=== PATIENT | female | born 1950 | race Caucasian/White ===

== ENCOUNTER → 2022-06-26 | Outpatient (CLI) | payer MEDICARE, MEDICAID ==
--- NOTE | 2022-06-26 15:43 | Diagnostic Imaging Report ---
INDICATION: Lump right hip. FINDINGS: Real-time imaging in the area of question shows an intramuscular complex hypoechoic fluid collection with debris. This measures approximately 4.8 x 2.8 x 1.5 cm. There is no hypervascularity. IMPRESSION: The findings suggest an intramuscular complex fluid collection, likely representing a hematoma, perhaps from muscle tear. If this does not improve, I would recommend additional imaging with MRI and gadolinium. Dictated by: Dictated on workstation # [id number]
== END ==
LOC: RAD 14:01
PROVIDERS: ATTEND Nurse Practitioner Family
DX: R22.41 Localized swelling, mass and lump, right lower limb (principal)
CPT/HCPCS: 76881

== ENCOUNTER 2022-08-03 07:32 | Inpatient (IN) | payer OTHER, MEDICAID ==
[~2022-08-03] VITALS: Ht 147 cm; Wt 43.3 kg
[2022-08-03] MEDS ORDERED: fentaNYL INJ 100 MCG/2 ML AMP IVP STA ×2 (07:55→11:32)
[2022-08-03] MEDS ORDERED: NS IV 1000 ML 1,000 ML IV STA (07:55)
--- NOTE | 2022-08-03 07:58 | ED Abdominal Pain ---
General Chief Complaint: Abdominal/GI Problems Stated Complaint: ABDOMINAL PAIN Nursing Triage Note: PT ARRIVED PER EMS, PT CO OF ABD PAIN FOR APPROX WEEK, DENIES DIARRHEA BUT STATES HAS HAD SEVERAL BM DURING [facility]. CO OF PAIN 08/28 Source of Information: Patient Exam Limitations: No Limitations History of Present Illness Date Seen by Provider: Aug 03, 2022 Time Seen by Provider: 07:50 Initial Comments Here with complaint of left-sided abdominal pain over the last week has worsened till this morning. She has not had pain like this before. Does report slightly darker urine but denies blood in her urine or stool. Last BM this morning that she states was darker brown and soft. Denies fever but has had some chills. Denies upper respiratory symptoms. Arrives via EMS due to severe pain. Timing/Duration: 1 Week, Getting Worse Severity/Quality: Moderate, Severe, Aching Location: LUQ, LLQ, Flank Radiation: No Radiation Activities at Onset: None Modifying Factors: Worsens With Movement, Worsens With Palpation Associated Symptoms: No Chest Pain, No Nausea/Vomiting, No Shortness of Air, No Swelling/Mass in Abdomen, No Weakness Allergies and Home Medications Allergies Coded Allergies: codeine (Verified Allergy, Unknown, 08/03/22) Patient Home Medication List Home Medication List Reviewed: Yes Review of Systems Review of Systems Constitutional: see HPI, chills; No fever EENTM: No Symptoms Reported Respiratory: Cough (Chronic mild but unchanged); Denies Shortness of Air Cardiovascular: Denies Chest Pain, Denies Edema Gastrointestinal: Abdominal Pain, Constipated; Denies Diarrhea Genitourinary: See HPI; Denies Burning, Denies Drainage Musculoskeletal: back pain; No muscle pain Skin: No change in color, No lesions Psychiatric/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: Denies Headache; Weakness All Other Systems Reviewed Negative Unless Noted: Yes Past Oudkfcl-Mzzymm-Hkoyax Hx Patient Social History Tobacco Use?: Yes Tobacco type used: Cigarettes Smoking Status: Current Everyday Smoker Substance use?: No Alcohol Use?: No Immunizations Up To Date First/Initial COVID19 Vaccinat: VINAY Second COVID19 Vaccination Noe: VINAY COVID19 Vaccine Director Engineering: VINAY Past Medical History Surgery/Hospitalization HX: ABD PAIN, Surgeries: Yes Abdominal Respiratory: Yes COPD Cardiac: Yes 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, 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 Gastrointestinal: Yes Musculoskeletal: Yes Chronic Back Pain Family Medical History Reviewed and Corrections made No Pertinent Family Hx Physical Exam Vital Signs Vital Signs - First Documented 08/03/22 07:43 Temp 36.5 Pulse 80 Resp 20 B/P (MAP) 118/80 (93) Pulse Ox 93 Capillary Refill : Less Than 3 Seconds Height/Weight/BMI Height: '" Weight: lbs. oz. kg; 18.00 BMI Method: General Appearance: WD/WN, mild distress HEENT: pharynx normal Neck: full range of motion, supple Respiratory: lungs clear, normal breath sounds Cardiovascular: regular rate, rhythm, no murmur Gastrointestinal: soft; No distended, No guarding, No rebound; tenderness (Left upper and lower quadrant and left flank) Extremities: non-tender, normal inspection Back: normal inspection; No CVA tenderness (R); CVA tenderness (L) Neurologic/Psychiatric: alert, normal mood/affect, oriented x 3 Skin: normal color, warm/dry Focused Exam Lactate Level 08/03/22 11:55: Lactic Acid Level Laboratory Tests Test 08/03/22 11:55 Progress/Results/Core Measures Results/Orders Lab Results Laboratory Tests Test 08/03/22 07:38 08/03/22 08:20 08/03/22 11:55 Range/Units White Blood Count 12.1 H 4.3-11.0 10^3/uL Red Blood Count 4.29 3.80-5.11 10^6/uL Hemoglobin 12.1 11.5-16.0 g/dL Hematocrit 37 35-52 % Mean Corpuscular Volume 86 80-99 fL Mean Corpuscular Hemoglobin 28 25-34 pg Mean Corpuscular Hemoglobin Concent 33 32-36 g/dL Red Cell Distribution Width 13.2 10.0-14.5 % Platelet Count 231 130-400 10^3/uL Mean Platelet Volume 8.8 L 9.0-12.2 fL Immature Granulocyte % (Auto) 1 % Neutrophils (%) (Auto) 77 H 42-75 % Lymphocytes (%) (Auto) 10 L 12-44 % Monocytes (%) (Auto) 8 0-12 % Eosinophils (%) (Auto) 3 0-10 % Basophils (%) (Auto) 1 0-10 % Neutrophils # (Auto) 9.4 H 1.8-7.8 10^3/uL Lymphocytes # (Auto) 1.2 1.0-4.0 10^3/uL Monocytes # (Auto) 1.0 0.0-1.0 10^3/uL Eosinophils # (Auto) 0.3 0.0-0.3 10^3/uL Basophils # (Auto) 0.1 0.0-0.1 10^3/uL Immature Granulocyte # (Auto) 0.1 0.0-0.1 10^3/uL Sodium Level 133 L 135-145 MMOL/L Potassium Level 4.7 3.6-5.0 MMOL/L Chloride Level 98 98-107 MMOL/L Carbon Dioxide Level 23 21-32 MMOL/L Anion Gap 12 5-14 MMOL/L Blood Urea Nitrogen 15 7-18 MG/DL Creatinine 1.08 0.60-1.30 MG/DL Estimat Glomerular Filtration Rate 55 BUN/Creatinine Ratio 14 Glucose Level 106 H 70-105 MG/DL Calcium Level 9.6 8.5-10.1 MG/DL Corrected Calcium 9.2 8.5-10.1 MG/DL Total Bilirubin 0.4 0.1-1.0 MG/DL Aspartate Amino Transf (AST/SGOT) 17 5-34 U/L Alanine Aminotransferase (ALT/SGPT) 10 0-55 U/L Alkaline Phosphatase 61 40-136 U/L C-Reactive Protein High Sensitivity 3.13 H 0.00-0.50 MG/DL Total Protein 7.2 6.4-8.2 GM/DL Albumin 4.5 3.2-4.5 GM/DL Lipase 26 8-78 U/L Urine Color YELLOW Urine Clarity CLOUDY Urine pH 7.0 5-9 Urine Specific [place] 1.010 L 1.016-1.022 Urine Protein NEGATIVE NEGATIVE Urine Glucose (UA) NEGATIVE NEGATIVE Urine Ketones NEGATIVE NEGATIVE Urine Nitrite POSITIVE H NEGATIVE Urine Bilirubin NEGATIVE NEGATIVE Urine Urobilinogen 0.2 < = 1.0 MG/DL Urine Leukocyte Esterase 3+ H NEGATIVE Urine RBC (Auto) NEGATIVE NEGATIVE Urine RBC NONE /HPF Urine WBC 25-50 H /HPF Urine Squamous Epithelial Cells 2-5 /HPF Urine Crystals NONE /LPF Urine Bacteria LARGE H /HPF Urine Casts NONE /LPF Urine Mucus NEGATIVE /LPF Urine Culture Indicated YES My Orders Orders - JS WALKER MD Cbc With Automated Diff (08/03/22 07:55) Comprehensive Metabolic Panel (08/03/22 07:55) Hs C Reactive Protein (08/03/22 07:55) Lipase (08/03/22 07:55) Ua Culture If Indicated (08/03/22 07:55) Ondansetron Injection (Zofran Injectio (08/03/22 08:00) Ns Iv 1000 Ml (Sodium Chloride 0.9%) (08/03/22 07:55) Ed Iv/Invasive Line Start (08/03/22 07:55) Fentanyl Inj (Sublimaze Injection) (08/03/22 07:55) Urine Culture (08/03/22 08:20) Ct Abdomen/Pelvis W (08/03/22 09:20) Iohexol Injection (Omnipaque 350 Mg/Ml 1 (08/03/22 09:30) Received Contrast (Hold Metformin- Contr (08/03/22 09:30) Ns (Ivpb) (Sodium Chloride 0.9% Ivpb Bag (08/03/22 09:30) Sodium Chloride Flush (Catheter Flush Sy (08/03/22 09:30) Ct Chest Wo (08/03/22 10:58) Lactic Acid Analyzer (08/03/22 10:58) Blood Culture (08/03/22 10:58) Ceftriaxone 1 Gm Pre-Mix (Rocephin 1 Gm (08/03/22 10:58) Fentanyl Inj (Sublimaze Injection) (08/03/22 11:32) Medications Given in ED Current Medications Medications Dose Ordered Sig/Ade Route Start Time Stop Time Status Last Admin Dose Admin Iohexol 100 ml ONCE ONCE IV 08/03/22 09:30 08/03/22 09:31 DC 08/03/22 09:53 47 ML Ondansetron HCl 4 mg ONCE ONCE IVP 08/03/22 08:00 08/03/22 08:01 DC 08/03/22 08:01 4 MG Sodium Chloride 10 ml NEEDED PRN IV 08/03/22 09:30 08/03/22 09:54 10 ML Sodium Chloride 100 ml ONCE ONCE IV 08/03/22 09:30 08/03/22 09:31 DC 08/03/22 09:54 80 ML Vital Signs/I&O 08/03/22 07:43 Temp 36.5 Pulse 80 Resp 20 B/P (MAP) 118/80 (93) Pulse Ox 93 Blood Pressure Mean: 93 Progress Progress Note : Progress Note Seen and evaluated. IV, labs and UA ordered. Anticipate CT abdomen pelvis pending UA study to determine contrast or noncontrast for stones versus intra- abdominal pathology. Fentanyl 50 mcg IV, Zofran 4 mg IV and normal saline 1 L bolus ordered. Monitor patient. Diagnostic Imaging Diagonstic Imaging: CT Plain Films/CT/US/NM/MRI: abdomen, pelvis Comments [facility], [place] NAME: NADIA SCHULTZ [facility] REC#: [id number] PT STATUS: REG ER : 1950 PHYSICIAN: JS WALKER MD ADMIT DATE: 08/03/22/ER Draft Date of Exam:08/03/22 CT ABDOMEN/PELVIS W PROCEDURE: CT abdomen and pelvis with contrast. TECHNIQUE: Multiple contiguous axial images were obtained through the abdomen and pelvis after administration of intravenous contrast. Auto Exposure Controls were utilized during the CT exam to meet ALARA standards for radiation dose reduction. All CT scans use one or more of the following dose optimizing techniques: automated exposure control, MA and/or KvP adjustment based on patient size and exam type or iterative reconstruction. INDICATION: Abdominal pain There is an approximately 2.7 x 2.9 cm irregular mass in the posterolateral left lower lobe with smaller adjacent satellite lesion. Otherwise, mildly prominent interstitial markings in the lung bases are noted and may be on the basis of fibrosis. There is no evidence of focal hepatic, gallbladder, pancreatic or splenic lesion. There is enlargement of both adrenal glands with a dominant left adrenal gland mass measuring 3.8 x 4.6 cm. There is volume loss in the right kidney with enlargement of the right renal pelvis. This could be related to chronic proximal ureteric stricture. There is no free fluid identified. There is moderate aortoiliac atherosclerotic calcification with dense plaque in the common iliac regions. Unopacified urinary bladder reveals no focal abnormality. Note is made of an approximately 3 cm subcutaneous mass in the lateral right buttock region. IMPRESSION: No evidence of acute abdominal abnormality however there is a highly suspicious 2.7 x 2.9 cm left lower lobe pulmonary mass which could represent primary lung tumor or metastasis. The remainder of the lung grant are not included. 4.6 x 3.8 cm left adrenal gland mass is highly suspicious for metastatic lesion with possible metastasis to the right adrenal gland. A 3 cm subcutaneous mass in the lateral right buttock region could also represent either primary or metastatic neoplasm. Right renal volume loss could be on the basis of emt intermediate stricture or obstruction. Dictated on workstation # [id number] Dict: 08/03/22 1002 Trans: 08/03/22 1010 [facility] [id number] Interpreted by: LEONARDO WASHINGTON MD Electronically signed by: Celinagonstic Imaging: CT Plain Films/CT/US/NM/MRI: chest Comments NAME: NADIA SCHULTZ [facility] REC#: [id number] PT STATUS: REG ER : 1950 PHYSICIAN: JS WALKER MD ADMIT DATE: 08/03/22/ER Draft Date of Exam:08/03/22 CT CHEST WO PROCEDURE: CT chest without contrast. TECHNIQUE: Multiple contiguous axial images were obtained through the chest without the use of intravenous contrast. Auto Exposure Controls were utilized during the CT exam to meet ALARA standards for radiation dose reduction. DATE: August 03, 2022. COMPARISON: None. INDICATION: 72-year-old female, left lower lobe mass. PROCEDURE: Axial noncontrasted CT images of the chest. Noncontrasted limits the evaluation of the mediastinum and vascular structures. FINDINGS: There are upper lobe predominant findings of emphysema. There is a noncalcified right upper lobe pulmonary nodule measuring 2.2 x 1.9 cm in axial extent on axial image 62. There is a noncalcified right lower lobe pulmonary nodule measuring 8 mm in size on axial image 92. There is a left lower lobe mass on axial image 110 measuring approximately 3.4 x 3.3 cm in axial extent. There are mild linear opacities in the left lower lobe and lingula consistent with atelectasis. There is also mild atelectasis in the right upper lobe. There is no pneumothorax. There is no pleural effusion. The central airways are patent. The heart is not enlarged. There is no large pericardial effusion. There are coronary artery calcifications and additional areas of atherosclerotic disease. There is no identified abnormally enlarged mediastinal lymph node meeting CT size criteria for adenopathy. There is a rounded area in the left axilla on axial image 24 which potentially could reflect an axillary lymph node versus tortuous vessel. This is difficult to evaluate on noncontrast imaging. There is a left adrenal mass measuring 4.5 x 3.7 cm in size. Internal attenuation on this noncontrast exam is 54 Hounsfield units. There is also a right adrenal nodule measuring 2.1 cm in size with indeterminate internal attenuation value of 45 Hounsfield units. There are splenic calcifications compatible with sequela of prior granulomatous disease. There is right renal atrophy. There are multilevel degenerative changes of the spine. There are compression deformities of T3, T6, and T7 without visible fracture lines. There is partial ankylosis across the T5-T6 disc base. T4-T5 disc space. There is no identified aggressive bone lesion. IMPRESSION: 1. Right upper lobe pulmonary nodule highly concerning for malignancy as well as left lower lobe mass highly concerning for malignancy. 2. Additional 8 mm right lower lobe pulmonary nodule which is indeterminate. 3. Upper lobe predominant findings of emphysema. 4. Question of abnormally enlarged left axillary lymph node versus tortuous vessel. 5. Left adrenal mass and a right adrenal nodule, both of which are indeterminate. Considering the above findings, this does raise concern for possible metastatic disease. Dictated on workstation # [id number] Dict: 08/03/22 1149 Trans: 08/03/22 1203 [facility] [id number] Interpreted by: POLA GUNN MD Electronically signed by: Departure Communication (Admissions) Time/Spoke to Admitting Phy: 12:22 Impression Primary Impression: UTI (urinary tract infection) Qualified Codes: N30.00 - Acute cystitis without hematuria Additional Impressions: Lesion of lung Left adrenal mass Disposition: ADMITTED INPATIENT Condition: Stable Admissions Decision to Admit Reason: Admit from ER (General) Decision to Admit/Date: Aug 03, 2022 Time/Decision to Admit Time: 12:22 Departure-Patient Inst. Referrals: BAIRON HARRIS MD (PCP/Family) Primary Care Physician JS WALKER MD Aug 03, 2022 07:58
[2022-08-03] MEDS ORDERED: ONDANSETRON 4 MG/2 ML (SDV) Z0FRAN IVP ONE (08:00)
[2022-08-03 08:03] LABS: BASOPHILS # (AUTO) 0.1 10^3/uL (0.0-0.1); BASOPHILS % (AUTO) 1 % (0-10); EOSINOPHILS # (AUTO) 0.3 10^3/uL (0.0-0.3); EOSINOPHILS % (AUTO) 3 % (0-10); HEMATOCRIT 37 % (35-52); HEMOGLOBIN 12.1 g/dL (11.5-16.0); LYMPHOCYTES # (AUTO) 1.2 10^3/uL (1.0-4.0); LYMPHOCYTES % (AUTO) 10 % (12-44); MEAN CORPUSCULAR HEMOGLOBIN 28 pg (25-34); MEAN CORPUSCULAR HGB CONC 33 g/dL (32-36); MEAN CORPUSCULAR VOLUME 86 fL (80-99); MEAN PLATELET VOLUME 8.8 fL (9.0-12.2); MONOCYTES % (AUTO) 8 % (0-12); NEUTROPHILS # (AUTO) 9.4 10^3/uL (1.8-7.8); NEUTROPHILS % (AUTO) 77 % (42-75); PLATELET COUNT 231 10^3/uL (130-400); WHITE BLOOD COUNT 12.1 10^3/uL (4.3-11.0)
[2022-08-03 08:04] LABS: ALBUMIN 4.5 GM/DL (3.2-4.5); POTASSIUM 4.7 MMOL/L (3.6-5.0)
[2022-08-03 08:05] LABS: CALCIUM 9.6 MG/DL (8.5-10.1)
[2022-08-03 08:06] LABS: TOTAL PROTEIN 7.2 GM/DL (6.4-8.2)
[2022-08-03 08:08] LABS: BILIRUBIN,TOTAL 0.4 MG/DL (0.1-1.0)
[2022-08-03 08:10] LABS: CREATININE SERUM 1.08 MG/DL (0.60-1.30)
[2022-08-03 08:34] LABS: BILIRUBIN,URINE NEGATIVE (NEGATIVE); CLARITY,URINE CLOUDY; COLOR,URINE YELLOW; GLUCOSE, URINE (UA) NEGATIVE (NEGATIVE); KETONES,URINE NEGATIVE (NEGATIVE); LEUKOCYTE ESTERASE ,URINE 3+ (NEGATIVE); NITRITE,URINE POSITIVE (NEGATIVE); PROTEIN,URINE NEGATIVE (NEGATIVE)
[2022-08-03 08:49] LABS: BACTERIA,URINE LARGE /HPF; WBC,URINE 25-50 /HPF
[2022-08-03] MEDS ORDERED: IOHEXOL 350 MG/ML 100 ML (OMNIPAQUE 350) VIAL IV ONE (09:30)
[2022-08-03] MEDS ORDERED: NS 100 ML (IVPB) BAG IV ONE (09:30)
[2022-08-03] MEDS ORDERED: HOLD METFORMIN - RECEIVED CONTRAST 20 ML VIAL IV SCH (09:30)
[2022-08-03] MEDS ORDERED: CATHETER FLUSH 10 ML SYR IV PRN (09:30)
--- NOTE | 2022-08-03 10:11 | Diagnostic Imaging Report ---
PROCEDURE: CT abdomen and pelvis with contrast. TECHNIQUE: Multiple contiguous axial images were obtained through the abdomen and pelvis after administration of intravenous contrast. Auto Exposure Controls were utilized during the CT exam to meet ALARA standards for radiation dose reduction. All CT scans use one or more of the following dose optimizing techniques: automated exposure control, MA and/or KvP adjustment based on patient size and exam type or iterative reconstruction. INDICATION: Abdominal pain There is an approximately 2.7 x 2.9 cm irregular mass in the posterolateral left lower lobe with smaller adjacent satellite lesion. Otherwise, mildly prominent interstitial markings in the lung bases are noted and may be on the basis of fibrosis. There is no evidence of focal hepatic, gallbladder, pancreatic or splenic lesion. There is enlargement of both adrenal glands with a dominant left adrenal gland mass measuring 3.8 x 4.6 cm. There is volume loss in the right kidney with enlargement of the right renal pelvis. This could be related to chronic proximal ureteric stricture. There is no free fluid identified. There is moderate aortoiliac atherosclerotic calcification with dense plaque in the common iliac regions. Unopacified urinary bladder reveals no focal abnormality. Note is made of an approximately 3 cm subcutaneous mass in the lateral right buttock region. IMPRESSION: No evidence of acute abdominal abnormality however there is a highly suspicious 2.7 x 2.9 cm left lower lobe pulmonary mass which could represent primary lung tumor or metastasis. The remainder of the lung grant are not included. 4.6 x 3.8 cm left adrenal gland mass is highly suspicious for metastatic lesion with possible metastasis to the right adrenal gland. A 3 cm subcutaneous mass in the lateral right buttock region could also represent either primary or metastatic neoplasm. Right renal volume loss could be on the basis of terminologist stricture or obstruction. Dictated by: Dictated on workstation # [id number]
[2022-08-03] MEDS ORDERED: cefTRIAXone 1 GM PRE-MIX 50 ML IV STA (10:58)
--- NOTE | 2022-08-03 12:04 | Diagnostic Imaging Report ---
PROCEDURE: CT chest without contrast. TECHNIQUE: Multiple contiguous axial images were obtained through the chest without the use of intravenous contrast. Auto Exposure Controls were utilized during the CT exam to meet ALARA standards for radiation dose reduction. DATE: August 03, 2022. COMPARISON: None. INDICATION: 72-year-old female, left lower lobe mass. PROCEDURE: Axial noncontrasted CT images of the chest. Noncontrasted limits the evaluation of the mediastinum and vascular structures. FINDINGS: There are upper lobe predominant findings of emphysema. There is a noncalcified right upper lobe pulmonary nodule measuring 2.2 x 1.9 cm in axial extent on axial image 62. There is a noncalcified right lower lobe pulmonary nodule measuring 8 mm in size on axial image 92. There is a left lower lobe mass on axial image 110 measuring approximately 3.4 x 3.3 cm in axial extent. There are mild linear opacities in the left lower lobe and lingula consistent with atelectasis. There is also mild atelectasis in the right upper lobe. There is no pneumothorax. There is no pleural effusion. The central airways are patent. The heart is not enlarged. There is no large pericardial effusion. There are coronary artery calcifications and additional areas of atherosclerotic disease. There is no identified abnormally enlarged mediastinal lymph node meeting CT size criteria for adenopathy. There is a rounded area in the left axilla on axial image 24 which potentially could reflect an axillary lymph node versus tortuous vessel. This is difficult to evaluate on noncontrast imaging. There is a left adrenal mass measuring 4.5 x 3.7 cm in size. Internal attenuation on this noncontrast exam is 54 Hounsfield units. There is also a right adrenal nodule measuring 2.1 cm in size with indeterminate internal attenuation value of 45 Hounsfield units. There are splenic calcifications compatible with sequela of prior granulomatous disease. There is right renal atrophy. There are multilevel degenerative changes of the spine. There are compression deformities of T3, T6, and T7 without visible fracture lines. There is partial ankylosis across the T5-T6 disc base. T4-T5 disc space. There is no identified aggressive bone lesion. IMPRESSION: 1. Right upper lobe pulmonary nodule highly concerning for malignancy as well as left lower lobe mass highly concerning for malignancy. 2. Additional 8 mm right lower lobe pulmonary nodule which is indeterminate. 3. Upper lobe predominant findings of emphysema. 4. Question of abnormally enlarged left axillary lymph node versus tortuous vessel. 5. Left adrenal mass and a right adrenal nodule, both of which are indeterminate. Considering the above findings, this does raise concern for possible metastatic disease. Dictated by: Dictated on workstation # [id number]
[2022-08-03] MEDS ORDERED: MILK OF MAGNESIA 400 MG/5 ML 30 ML UDC PO PRN (15:00)
[2022-08-03] MEDS ORDERED: diphenhydrAMINE 50 MG/ML INJ (BENADRYL) IVP PRN (15:00)
[2022-08-03] MEDS ORDERED: LACTULOSE SYRUP 10GM/15ML (ENULOSE) 30ML UDC PO PRN (15:00)
[2022-08-03] MEDS ORDERED: ANTACID SUSP 30 ML UDC (MYLANTA) PO PRN (15:00)
[2022-08-03] MEDS ORDERED: CALCIUM CARBONATE 500 MG (TUMS) TAB.CHEW PO PRN (15:00)
[2022-08-03] MEDS ORDERED: ACETAMINOPHEN 325 MG TABLET PO PRN (15:00)
[2022-08-03] MEDS ORDERED: diphenhydrAMINE 25 MG TAB (BENADRYL) PO PRN (15:00)
[2022-08-03] MEDS ORDERED: BISACODYL 10 MG SUPP (DULCOLAX) PR PRN (15:00)
[2022-08-03] MEDS ORDERED: NALOXONE 0.4 MG/ML 1 ML (NARCAN) VIAL IV PRN (15:00)
[2022-08-03] MEDS ORDERED: MELATONIN 3 MG TABLET PO PRN (15:00)
[2022-08-03] MEDS ORDERED: NS IV 500 ML 500 ML IV PRN (15:00)
[2022-08-03] MEDS ORDERED: polyethylene glycoL POWDER 17 GM (MIRALAX) PACK PO PRN (15:00)
[2022-08-03] MEDS ORDERED: cefTRIAXone 1 GM PRE-MIX 50 ML IV SCH (15:00)
--- NOTE | 2022-08-03 15:16 | Physical Therapy Progress Note ---
Therapy Progress Note PT to initiate evaluation tomorrow ELISSA Kang PT Aug 03, 2022 15:16
--- NOTE | 2022-08-03 15:18 | Occ Therapy Progress Note ---
Therapy Progress Note OT orders received and chart reviewed. Pt currently still in ER. OT to initiate evaluation 08/04/22 if appropriate. Precious Atkins OT Aug 03, 2022 15:18
[2022-08-03] MEDS: LACTATED RINGERS 1,000 ML IV SCH (15:24)
[2022-08-03 15:42] VITALS: BP 96/58
[2022-08-03] MEDS ORDERED: AMLO-251 PO (16:03)
[2022-08-03] MEDS ORDERED: LISI40TA9 PO (16:03)
[2022-08-03] MEDS ORDERED: IPRA3AMP31 NEB (16:03)
[2022-08-03] MEDS ORDERED: IPRA4AER INH (16:03)
[2022-08-03] MEDS ORDERED: HYDR-3923 PO (16:03)
[2022-08-03] MEDS ORDERED: ACET-2267 PO (16:03)
[2022-08-03] MEDS ORDERED: L.AC1CAP6 PO (16:03)
[2022-08-03] MEDS ORDERED: POLY119P5 PO (16:03)
[2022-08-03] MEDS ORDERED: ROSU20TA32 PO (16:03)
[2022-08-03] MEDS ORDERED: ASPI-1238 PO (16:03)
[2022-08-03] MEDS ORDERED: METO100T12 PO (16:03)
--- NOTE | 2022-08-03 16:51 | History & Physical-Hospitalist ---
History of Present Illness HPI/Chief Complaint Lyndsey Sosa is a 72 year old female with PMH HTN, HLD, COPD, history of lymphoma, who presented with abdominal pain. She says the pain has been there for about a week. The pain was worse today. It is located in her left upper quadrant. She reports chills. She reports diarrhea and fecal incontinence. She reports shortness of breath. She has not had a very good appetite. She denies dysuria. Source: patient Exam Limitations: no limitations Date Seen 08/03/22 Time Seen by a Provider: 16:00 Attending Physician Oscar Garnett MD PCP Admitting Physician: Fara Campos MD Attending Physician: Fara Campos MD Referring Physician Date of Admission Aug 03, 2022 at 14:25 Home Medications & Allergies Home Medications Reviewed patient Home Medication Reconciliation performed by pharmacy medication reconciliations arcade game technician and/or nursing. Patients Allergies have been reviewed. Allergies Allergies Coded Allergies codeine (Verified Allergy, Unknown, 08/03/22) Past Gckpvdf-Wdjmvi-Jipmqp Hx Patient Social History Tobacco Use?: Yes Tobacco type used: Cigarettes Smoking Status: Current Everyday Smoker Use of E-Cig and/or Vaping dev: No Substance use?: Yes Substance type: Caffeine Substance frequency: Daily Alcohol Use?: No Pt feels they are or have been: No Immunizations Up To Date First/Initial COVID19 Vaccinat: PFITZER Second COVID19 Vaccination Noe: PFITZER Tetanus Booster (TDap): Unknown Hepatitis A: No Hepatitis B: No Current Status status: No Advance Directives: No Communicates: Verbally Primary Language: Danish Preferred Spoken Language: Danish Is interpretation needed?: No Sensory deficits: Vision impairment Implanted or Applied Medical D: None Past Medical History Surgeries: Abdominal COPD 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, 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 Chronic Back Pain Lymphoma (unsure of exact diagnosis) Family Medical History Reviewed and Corrections made No Pertinent Family Hx Review of Systems Constitutional: chills Respiratory: short of breath Cardiovascular: no symptoms reported Gastrointestinal: diarrhea Physical Exam Physical Exam Vital Signs Vital Signs - First Documented 08/03/22 08/03/22 07:43 14:28 Temp 36.5 Pulse 80 Resp 20 B/P (MAP) 118/80 (93) Pulse Ox 93 O2 Delivery Nasal Cannula O2 Flow Rate 2.00 Capillary Refill : Less Than 3 Seconds Height, Weight, BMI Height: '" Weight: lbs. oz. kg; 20.03 BMI Method: General Appearance: No Apparent Distress, Anxious, Chronically ill, Thin HEENT: PERRL/EOMI, Pharynx Normal Neck: Normal Inspection, Supple Respiratory: Lungs Clear, No Respiratory Distress Cardiovascular: Regular Rate, Rhythm, No Murmur Gastrointestinal: Normal Bowel Sounds, Soft Extremity: Other (right hip mass) Neurologic/Psychiatric: Alert, Oriented x3 Skin: Normal Color, Warm/Dry Results Results/Procedures Labs Laboratory Tests 08/03/22 07:38 Patient resulted labs reviewed. Imaging: Reviewed Imaging Report Assessment/Plan Admission Diagnosis Sepsis due to UTI Admission Status: Inpatient Order (span 2 midnights) Reason for Inpatient Admission: IV antibiotics Biopsy Assessment and Plan Sepsis due to UTI UA consistent with UTI IV fluids IV Rocephin Lung mass Adrenal mass Right hip mass Concern for metastatic cancer Radiology consulted for biopsy Planning for right hip mass biopsy tomorrow Consult Oncology, will need outpatient follow up HTN Blood pressure low normal at this time Hold Metoprolol and Lisinopril Continue Amlodipine and Hydralazine DVT prophylaxis: SCDs Diagnosis/Problems Diagnosis/Problems (1) Sepsis due to urinary tract infection Status: Acute (2) Lung mass Status: Acute (3) Adrenal mass Status: Acute (4) Hip mass Status: Acute Qualifiers: Laterality: right Qualified Codes: R22.41 - Localized swelling, mass and lump, right lower limb FARA CAMPOS MD Aug 03, 2022 16:51
[2022-08-03] MEDS: ONDANSETRON 4 MG (ZOFRAN) ORAL DISSOLVE TAB PO PRN (17:20)
[2022-08-03 19:20] VITALS: BP 106/69
[2022-08-03] MEDS ORDERED: RT-ALBUTEROL/IPRATROPIUM 3 ML (DUONEB) VIAL IH PRN (21:00)
[2022-08-03] MEDS: DOCUSATE SODIUM 100 MG (COLACE) CAP PO SCH (21:12)
[2022-08-03] MEDS: SENNOSIDES 8.6 MG (SENOKOT) TAB PO SCH (21:12)
[2022-08-03] MEDS: hydrALAZINE (APRESOLINE) 25 MG TAB PO SCH (21:34)
[2022-08-03] MEDS: ONDANSETRON 4 MG/2 ML (SDV) Z0FRAN IV PRN (22:24)
[2022-08-03 23:27] VITALS: BP 92/57
[2022-08-04] VITALS (8 sets, daily range): BP systolic 88–120; BP diastolic 53–73
[2022-08-04] MEDS: LACTATED RINGERS 1,000 ML IV SCH ×2 (01:07→12:19)
[2022-08-04] MEDS: HYDROmorphone 2 MG/ML VIAL (DILAUDID) IV PRN ×2 (02:29→06:59)
[2022-08-04 05:16] LABS: BASOPHILS # (AUTO) 0.1 10^3/uL (0.0-0.1); BASOPHILS % (AUTO) 1 % (0-10); EOSINOPHILS # (AUTO) 0.3 10^3/uL (0.0-0.3); EOSINOPHILS % (AUTO) 4 % (0-10); HEMATOCRIT 30 % (35-52); HEMOGLOBIN 9.9 g/dL (11.5-16.0); LYMPHOCYTES # (AUTO) 0.8 10^3/uL (1.0-4.0); LYMPHOCYTES % (AUTO) 10 % (12-44); MEAN CORPUSCULAR HEMOGLOBIN 29 pg (25-34); MEAN CORPUSCULAR HGB CONC 33 g/dL (32-36); MEAN CORPUSCULAR VOLUME 87 fL (80-99); MEAN PLATELET VOLUME 8.7 fL (9.0-12.2); MONOCYTES # (AUTO) 0.8 10^3/uL (0.0-1.0); MONOCYTES % (AUTO) 10 % (0-12); NEUTROPHILS # (AUTO) 5.6 10^3/uL (1.8-7.8); NEUTROPHILS % (AUTO) 74 % (42-75); PLATELET COUNT 175 10^3/uL (130-400); WHITE BLOOD COUNT 7.7 10^3/uL (4.3-11.0)
[2022-08-04 05:41] LABS: CALCIUM 8.6 MG/DL (8.5-10.1); CREATININE SERUM 0.86 MG/DL (0.60-1.30); MAGNESIUM 1.8 MG/DL (1.6-2.4)
[2022-08-04] MEDS ORDERED: POTASSIUM CL 10MEQ/50ML IVPB 50 ML IV SCH (06:00)
[2022-08-04] MEDS ORDERED: MAGNESIUM 1 GM/100 ML IVPB 100 ML IV SCH (06:00)
[2022-08-04] MEDS ORDERED: KCL 20 MEQ TAB (K-DUR) PO SCH (06:00)
[2022-08-04 07:10] LABS: INR 0.9 (0.8-1.4); PROTHROMBIN TIME PATIENT 12.5 SEC (12.2-14.7)
[2022-08-04] MEDS: ONDANSETRON 4 MG/2 ML (SDV) Z0FRAN IV PRN (07:27)
[2022-08-04] MEDS ORDERED: PROMETHAZINE INJ 25 MG/ML (PHENERGAN) AMP IVP PRN (08:30)
[2022-08-04] MEDS ORDERED: NICOTINE 14 MG (NICODERM) PATCH TD SCH (09:00)
[2022-08-04] MEDS ORDERED: amLODIPine 10 MG (NORVASC) TAB PO SCH (09:00)
[2022-08-04] MEDS ORDERED: PATIENT MAY USE OWN MED,SINGLE MED INH SCH (09:00)
[2022-08-04] MEDS ORDERED: COMBIVENT RESPIMAT IH SCH (09:00)
[2022-08-04] MEDS ORDERED: ROSUVASTATIN 20 MG (CRESTOR) TABLET PO SCH (09:00)
[2022-08-04] MEDS ORDERED: RT-ALBUTEROL/IPRATROPIUM 3 ML (DUONEB) VIAL IH SCH (09:00)
[2022-08-04] MEDS: DOCUSATE SODIUM 100 MG (COLACE) CAP PO SCH (09:08)
[2022-08-04] MEDS: SENNOSIDES 8.6 MG (SENOKOT) TAB PO SCH (09:08)
[2022-08-04] MEDS: hydrALAZINE (APRESOLINE) 25 MG TAB PO SCH ×2 (09:08→12:13)
--- NOTE | 2022-08-04 09:47 | Physical Therapy Evaluation ---
PT Evaluation-General Medical Diagnosis Admission Date Aug 03, 2022 at 14:25 Medical Diagnosis: UTI/lesions of lung and adrenal glands Onset Date: Aug 03, 2022 Therapy Diagnosis Therapy Diagnosis: debility/weakness Precautions Precautions/Isolations: Standard Precautions Referral Physician: Giulia Reason for Referral: Evaluation/Treatment Medical History Pertinent Medical History: COPD, HTN, Smoking History of Falls (past yr): No Prior Surgery (last 100 days): No Current History EMS secondary to abdominal pain x 1 week Reviewed History: Yes Social History Home: Single Level Current Living Status: Alone Prior Prior Level of Function SCALE: Activities may be completed with or without assistive devices. 2-Zgtowdxmkx-sutoppp completes the activity by him/herself with no assistance from a helper. 5-Set-up or Clean-up Assistance-helper sets up or cleans up; patient completes activity. Mead assists only prior to or following the activity. 4-Supervision or Touching Assistance-helper provides verbal cues and/or touching/steadying and/or contact guard assistance as patient completes act ivity. Assistance may be provided throughout the activity or intermittently. 3-Partial/Moderate Assistance-helper does LESS THAN HALF the effort. Mead lifts, holds or supports trunk or limbs, but provides less than half the effort. 2-Substantial/Maximal Assistance-helper does MORE THAN HALF the effort. Mead lifts or holds trunk or limbs and provides more than half the effort. 4-Modldhueo-yotjip does ALL the effort. Patient does none of the effort to complete the activity. Or, the assistance of 2 or more helpers is required for the patient to complete the activity. If activity was not attempted, code reason: 7-Patient Refused. 9-Not Applicable-not attempted and the patient did not perform the activity before the current illness, exacerbation or injury. 10-Not Attempted due to Environmental Limitations-(lack of equipment, weather restraints, etc.). 88-Not Attempted due to Medical Conditions or Safety Concerns. Bed Mobility: 6 Transfers (B,C,W/C): 6 Gait: 6 Stairs: 6 Indoor Mobility (Ambulation): Independent Stairs: Independent Prior Devices Use: None PT Evaluation-Current Subjective Patient reluctantly agrees to PT. Declined FWW use. Patient requests to stay in the room Objective Patient Orientation: Normal For Age Attachments: Oxygen, IV ROM/Strength ROM Lower Extremities bilateral LE WFL Strength Lower Extremities 3/5 grossly bilateral LE all planes Integumentary/Posture Bowel Incontinence: No Bladder Incontinence: No Posture WFL Neuromuscular (Tone, Coordination, Reflexes) grossly intact Sensory Vision: Functional Hearing: Functional Transfers Sit to Lying (QC): 6 Lying to Sitting/Side of Bed(Q: 6 Sit to Stand (QC): 6 Toilet Transfer (QC): 6 Gait Mode of Locomotion: Walk Anticipated Mode of Locomotion: Walk Walk 10 feet (QC): 6 Walk 50 ft with 2 Turns(QC): 6 Walk 150 ft (QC): 7 Distance: 50' Gait Assistive Device: None Comments/Gait Description slow, functional gait sequence Balance Sitting Static: Normal Sitting Dynamic: Normal Standing Static: Fair Standing Dynamic: Fair Assessment/Needs Patient ceases session due to nausea and vomiting with meds issued. Patient also declined continued need for PT at this time. RN notified. Patient rece ntly diagnosed with probable metastatic cancer multiple organs/areas Rehab Potential: Poor PT Plan Treatment/Plan Treatment Plan: Discontinue PT Treatment Duration: Aug 04, 2022 Frequency: 1 time per week Estimated Hrs Per Day: .25 hour per day Patient and/or Family Agrees t: Yes Time/GCodes Time In: 755 Time Out: 805 Total Billed Treatment Time: 10 Total Billed Treatment 1 visit EVLowC 10 min ELISSA VALLE PT Aug 04, 2022 09:47
[2022-08-04] MEDS ORDERED: LIDOCAINE 1% INJ 10 ML VIAL INJ ONE (10:15)
--- NOTE | 2022-08-04 10:33 | Occupational Therapy Eval ---
OT Evaluation-General/PLF Medical Diagnosis Admission Date Aug 03, 2022 at 14:25 Medical Diagnosis: UTI/lesions of lung and adrenal glands Onset Date: Aug 03, 2022 Therapy Diagnosis Therapy Diagnosis: n/a Precautions Precautions/Isolations: Standard Precautions Referral Physician: Giulia Siu Reason: Evaluation/Treatment Medical History Pertinent Medical History: COPD, HTN, Smoking Additional Medical History HTN, HLD, COPD, lymphoma Current History ED with Abdominal pain x1 week Social History Home: Single Level Current Living Status: Alone Entry Into Home: Level Entry ADL-Prior Level of Function SCALE: Activities may be completed with or without assistive devices. 0-Csgiorygpi-wnceiai completes the activity by him/herself with no assistance from a helper. 5-Set-up or Clean-up Assistance-helper sets up or cleans up; patient completes activity. Odonnell assists only prior to or following the activity. 4-Supervision or Touching Assistance-helper provides verbal cues and/or touching/steadying and/or contact guard assistance as patient completes activity. Assistance may be provided throughout the activity or intermittently. 3-Partial/Moderate Assistance-helper does LESS THAN HALF the effort. Odonnell lifts, holds or supports trunk or limbs, but provides less than half the effort. 2-Substantial/Maximal Assistance-helper does MORE THAN HALF the effort. Odonnell lifts or holds trunk or limbs and provides more than half the effort. 1-Djhghomsk-oivoic does ALL the effort. Patient does none of the effort to complete the activity. Or, the assistance of 2 or more helpers is required for the patient to complete the activity. If activity was not attempted, code reason: 7-Patient Refused. 9-Not Applicable-not attempted and the patient did not perform the activity before the current illness, exacerbation or injury. 10-Not Attempted due to Environmental Limitations-(lack of equipment, weather restraints, etc.). 88-Not Attempted due to Medical Conditions or Safety Concerns. ADL PLOF Comments Pt reports IND with ADLs and functional mobility, no AD. She has a walk in shower, no SC. Self Care: Independent Functional Cognition: Independent DME/Equipment: Shower OT Current Status Subjective Pt in bed, family member present. Pt agreeable to OT tx. Mental Status/Objective Patient Orientation: Person, Place, Situation Attachments: IV, Oxygen Current Upper Extremity ROM WFL Upper Extremity Strength WFL ADL-Treatment Eating (QC): 6 On/Off Footwear (QC): 6 Toileting Hygiene (QC): 6 Other Treatments Pt in bed, transferred supine to sit EOB independently. OT educated pt on benefits of SC, she verbalized understanding. Pt completed footwear independently, declined completing other ADLs at this time. Pt reports IND with clothing management and hygiene with toileting, and independent with meals. Pt able to stand at EOB, turn towards bed to adjust linens and return to bed independently. Pt reports she is at PLOF with ADLs, and declines further OT services. Post tx, pt in bed, call light in reach and all needs met. Education OT Patient Education: Correct positioning, Energy conservation, Modified ADL techniques, Progress toward Goal/Update tx plan, Purpose of tx/functional activities, Rehab process Teaching Recipient: Patient Teaching Methods: Discussion Response to Teaching: Verbalize Understanding OT Usp Goals Usp Goals 1=Demonstrate adherence to instructed precautions during ADL tasks. 2=Patient will verbalize/demonstrate understanding of assistive devices/modifications for ADL. 3=Patient will improve strength/tolerance for activity to enable patient to perform ADL's. OT Education/Plan Problem List/Assessment Assessment: No Skilled OT Needs ID'd No skilled OT services indicated at this time, as pt is at her PLOF with ADLs and functional mobility, and pt declined further services. d/c from OT. Discharge Recommendations Plan/Recommendations: Discharge/Goals Met Treatment Plan/Plan of Care Patient would benefit from OT for education, treatment and training to promote independence in ADL's, mobility, safety and/or upper extremity function for ADL's. Plan of Care: ADL Retraining, Functional Mobility Treatment Duration: Aug 04, 2022 Frequency: 1 time per week (eval only) Rehab Potential: Poor Time/GCodes Start Time: 10:15 Stop Time: 10:23 Total Time Billed (hr/min): 8 Billed Treatment Time 1, RAMONE HUA OT Aug 04, 2022 10:33
[2022-08-04] MEDS ORDERED: LIDOCAINE 1% INJ 10 ML VIAL ONE (10:39)
[2022-08-04] MEDS ORDERED: cefTRIAXone 1 GM PRE-MIX 50 ML IV SCH (12:00)
[2022-08-04] MEDS ORDERED: ONDA4TAB11 PO (13:44)
[2022-08-04] MEDS ORDERED: CEFD300C3 PO (13:44)
[2022-08-04] MEDS ORDERED: OXYC1TAB11 PO (13:44)
[2022-08-04] MEDS ORDERED: PROM25TA14 PO (13:44)
--- NOTE | 2022-08-04 14:29 | Oncology Consultation ---
Visit Information Visit Information Date of Admission Aug 03, 2022 at 14:25 Attending Physician Oscar Garnett MD Admitting Physician Admitting Physician: Marianne Campos MD Attending Physician: Marianne Campos MD Chief Complaint Abdominal pain, mass noticed on CT scan Interval History Ms. Sosa is a 72 year white man presented to ER complaining of abdominal and c hest pain .CT scan showed noncalcified right upper lobe pulmonary nodule measuri ng 2.2 x 1.9 cm. There is a left lower lobe mass on axial image 110 measuring approximately 3.4 x 3.3 cm in axial extent. She also has adrenal mass 4.6 x 3.8 cm left adrenal gland mass is highly suspicious for metastatic lesion with possible metastasis to the right adrenal gland. A 3 cm subcutaneous mass in the lateral right buttock region could also represent either primary or metastatic neoplasm. No other acute abdominal issues on the scan. Pt had mass lesion biopsy this morning. We are called for future management. The plan is to discharge patient today. I consulted the patient on: 08/04/22 14:22 Time Seen by Provider: 12:15 Review of Systems Constitutional: see HPI Health Status Allergies Coded Allergies: codeine (Verified Allergy, Unknown, 08/03/22) Home Medications Acetaminophen (Tylenol Extra Strength) 500 Mg Tablet, 1,000 MG PO Q8H PRN for PAIN-MILD (1-4), (Reported) Albuterol/Ipratropium (Combivent Respimat Inhal [place]) 20 Mcg-100 Mcg/Actuation Aero, 2 PUFF INH BID, (Reported) Amlodipine Besylate (Amlodipine Besylate) 10 Mg Tablet, 10 MG PO DAILY, (Reported) Aspirin (Aspirin EC) 81 Mg Tablet.dr, 81 MG PO DAILY, (Reported) Cefdinir (Cefdinir) 300 Mg Capsule, 300 MG PO BID for 5 Days, #10 Prescribed by: MARIANNE CAMPOS on 08/04/22 1344 Hydralazine HCl (Hydralazine HCl) 25 Mg Tablet, 25 MG PO TID, (Reported) Ipratropium/Albuterol Sulfate (Iprat-Albut 0.5-3(2.5) mg/3 ml) 0.5 Mg-3 Mg (2.5 Mg Base)/3 Ml Ampul.neb, 3 ML NEB Q4H PRN for SHORTNESS OF BREATH, (Reported) L.acidoph & Paracasei,B.lactis (Probiotic) 10 Billion Cell Capsule, 1 EACH PO Q48H, (Reported) Lisinopril (Lisinopril) 40 Mg Tablet, 40 MG PO DAILY, (Reported) Metoprolol Tartrate (Metoprolol Tartrate) 100 Mg Tablet, 100 MG PO BID, (Reported) Ondansetron (Ondansetron Odt) 4 Mg Tab.rapdis, 4 MG PO Q6H PRN for NAUSEA/VOMITI NG-1ST LINE for 7 Days, #28 Prescribed by: MARIANNE CAMPOS on 08/04/22 1344 Oxycodone HCl/Acetaminophen (Oxycodone-Acetaminophen 5-325) 5 Mg-325 Mg Tablet, 1 EACH PO Q4H PRN for PAIN-SEVERE for 7 Days, #20 Prescribed by: MARIANNE CAMPOS on 08/04/22 1346 Polyethylene Glycol 3350 (Miralax) 17 Gram/Dose Powder, 17 GM PO DAILY PRN for CONSTIPATION-2ND LINE, (Reported) Promethazine HCl (Promethazine Tablet) 25 Mg Tablet, 25 MG PO Q6H PRN for NAUSEA/VOMITING for 7 Days, #28 Prescribed by: MARIANNE CAMPOS on 08/04/22 1344 Rosuvastatin Calcium (Rosuvastatin Calcium) 20 Mg Tablet, 20 MG PO DAILY, (Reported) QPM-Imliur-Hptuzx Hx Patient Social History Smoking Status: Current Everyday Smoker Alcohol Use?: No Substance type: Caffeine Have you traveled recently?: No Family Medical History Significant Family History: No Pertinent Family Hx Physical Exam Vital Signs Vital Signs - First Documented 08/03/22 08/03/22 07:43 14:28 Temp 36.5 Pulse 80 Resp 20 B/P (MAP) 118/80 (93) Pulse Ox 93 O2 Delivery Nasal Cannula O2 Flow Rate 2.00 Capillary Refill : Less Than 3 Seconds Height, Weight, BMI Height: '" Weight: lbs. oz. kg; 20.03 BMI Method: General Appearance: No Apparent Distress HEENT: PERRL/EOMI Respiratory: No Accessory Muscle Use, No Respiratory Distress Neurologic/Psychiatric: Alert, Oriented x3 Data Review Labs Laboratory Tests 08/04/22 05:10 Laboratory Tests 08/03/22 07:38: White Blood Count 12.1H, Mean Platelet Volume 8.8L, Neutrophils (%) (Auto) 77H, Lymphocytes (%) (Auto) 10L, Neutrophils # (Auto) 9.4H, Sodium Level 133L, Glucose Level 106H, C-Reactive Protein High Sensitivity 3.13H 08/03/22 08:20: Urine Specific [place] 1.010L, Urine Nitrite POSITIVEH, Urine Leukocyte Esterase 3+H, Urine WBC 25-50H, Urine Bacteria LARGEH 08/03/22 11:55: 08/04/22 05:10: Mean Platelet Volume 8.7L, Lymphocytes (%) (Auto) 10L, Red Blood Count 3.45L, H emoglobin 9.9L, Hematocrit 30L, Lymphocytes # (Auto) 0.8L Impression & Plan Impression & Plan IMP: 1. Multiple mass lesions in the chest and adrenal, suspicious of malignancy. s/p CT guided biopsy 08/04/2022 2. Abdominal pain. Rec: 1. I will see patient as out-pt at cancer center to discuss the biopsy results and treatment options. I gave her appointment card 08/18/2022 9:30am and my card. 2. Please discharge with medication for pain control. 3. Pt can be discharged from Hem/Onc point of view. Dr Campos to decide the discharge plan. SWAPNA PINEDA MD Aug 04, 2022 14:29
[2022-08-04] MEDS: ONDANSETRON 4 MG (ZOFRAN) ORAL DISSOLVE TAB PO PRN (14:34)
--- NOTE | 2022-08-04 21:46 | Discharge Summary ---
Discharge Summary Hospital Course Problems/Dx: (1) Sepsis due to urinary tract infection Status: Acute (2) Lung mass Status: Acute (3) Adrenal mass Status: Acute (4) Hip mass Status: Acute Qualifiers: Qualified Codes: R22.41 - Localized swelling, mass and lump, right lower limb Hospital Course Date of Admission: Aug 03, 2022 at 14:25 Admission Diagnosis : Sepsis due to UTI Family Physician/Provider: Oscar Garnett MD Date of Discharge: 08/04/22 Discharge Diagnosis: Sepsis due to UTI, Lung mass/adrenal mass/hip mass Hospital Course: Lyndsey Sosa is a 72 year old female with PMH HTN, COPD, tobacco abuse, who presented with abdominal pain. She underwent CT scan which revealed a lung mass, several pulmonary nodules, adrenal mass, and hip mass. Radiology was consulted and performed biopsy of her hip lesion. Oncology was consulted and she was set up for outpatient follow up. Her course was complicated by nausea and vomiting and she was prescribed antiemetics. She was also given some pain medicine. She was given a course of Omnicef for her UTI. She was discharged home in stable condition. Labs and Pending Lab Test: Laboratory Tests 08/04/22 05:10: White Blood Count 7.7, Red Blood Count 3.45L, Hemoglobin 9.9L, Hematocrit 30L, Mean Corpuscular Volume 87, Mean Corpuscular Hemoglobin 29, Mean Corpuscular Hemoglobin Concent 33, Red Cell Distribution Width 13.4, Platelet Count 175, Mean Platelet Volume 8.7L, Immature Granulocyte % (Auto) 1, Neutrophils (%) (Auto) 74, Lymphocytes (%) (Auto) 10L, Monocytes (%) (Auto) 10, Eosinophils (%) (Auto) 4, Basophils (%) (Auto) 1, Neutrophils # (Auto) 5.6, Lymphocytes # (Auto) 0.8L, Monocytes # (Auto) 0.8, Eosinophils # (Auto) 0.3, Basophils # (Auto) 0.1, Immature Granulocyte # (Auto) 0.1, Prothrombin Time 12.5, INR Comment 0.9, Activated Partial Thromboplast Time 33, Sodium Level 135, Potassium Level 4.0, Chloride Level 102, Carbon Dioxide Level 23, Anion Gap 10, Blood Urea Nitrogen 12, Creatinine 0.86, Estimat Glomerular Filtration Rate 73, BUN/Creatinine Ratio 14, Glucose Level 94, Calcium Level 8.6, Magnesium Level 1.8 Microbiology 08/03/22 Blood Culture - Preliminary, Resulted No growth 08/03/22 Urine Culture - Preliminary, Resulted Escherichia coli Home Meds Active Promethazine Tablet (Promethazine HCl) 25 Mg Tablet 25 Mg PO Q6H PRN 7 Days Ondansetron Odt (Ondansetron) 4 Mg Tab.rapdis 4 Mg PO Q6H PRN 7 Days Oxycodone-Acetaminophen 5-325 (Oxycodone HCl/Acetaminophen) 5 Mg-325 Mg Tablet 1 Each PO Q4H PRN MDD 6 7 Days Cefdinir 300 Mg Capsule 300 Mg PO BID 5 Days Reported Probiotic (L.acidoph & Paracasei,B.lactis) 10 Billion Cell Capsule 1 Each PO Q48H Aspirin EC (Aspirin) 81 Mg Tablet.dr 81 Mg PO DAILY Tylenol Extra Strength (Acetaminophen) 500 Mg Tablet 1,000 Mg PO Q8H PRN Combivent Respimat Inhal [place] (Albuterol/Ipratropium) 20 Mcg-100 Mcg/Actuation Aero 2 Puff INH BID Rosuvastatin Calcium 20 Mg Tablet 20 Mg PO DAILY Iprat-Albut 0.5-3(2.5) mg/3 ml (Ipratropium/Albuterol Sulfate) 0.5 Mg-3 Mg (2.5 Mg Base)/3 Ml Ampul.neb 3 Ml NEB Q4H PRN Miralax (Polyethylene Glycol 3350) 17 Gram/Dose Powder 17 Gm PO DAILY PRN Amlodipine Besylate 10 Mg Tablet 10 Mg PO DAILY Hydralazine HCl 25 Mg Tablet 25 Mg PO TID Assessment/Pt Instructions Take medications as prescribed. Follow up with Oncology. Return with worsening pain, intractable nausea/vomiting, or if you feel like you are getting worse. Discharge Planning: <30 minutes discharge planning Discharge Instructions Discharge Diet: No Restrictions Activity as Tolerated: Yes Consultations Oncology, Radiology Discharge Physical Examination Vital Signs Vital Signs Date Time Temp Pulse Resp B/P (MAP) Pulse Ox O2 Delivery O2 Flow Rate FiO2 08/04/22 16:00 37.1 108 21 90/67 92 Nasal Cannula 3.00 General Appearance: No Apparent Distress, Thin Respiratory: No Respiratory Distress, Decreased Breath Sounds Cardiovascular: Regular Rate, Rhythm, No Murmur Gastrointestinal: Normal Bowel Sounds, Soft Extremity: Normal Inspection, No Pedal Edema Skin: Normal Color, Warm/Dry Neurologic/Psychiatric: Alert, Normal Mood/Affect Allergies: Coded Allergies: codeine (Verified Allergy, Unknown, 08/03/22) Discharge Summary Date of Admission Aug 03, 2022 at 14:25 Date of Discharge Aug 04, 2022 at 16:00 Discharge Date: Aug 04, 2022 Discharge Time: 16:00 Admission Diagnosis Sepsis due to UTI Discharge Diagnosis Sepsis due to UTI Lung mass Adrenal mass Right hip mass HTN (1) Sepsis due to urinary tract infection Status: Acute (2) Lung mass Status: Acute (3) Adrenal mass Status: Acute (4) Hip mass Status: Acute Qualifiers: Qualified Codes: R22.41 - Localized swelling, mass and lump, right lower limb FARA CAMPOS MD Aug 04, 2022 21:46
[2022-08-05] MEDS ORDERED: NICOTINE PATCH REMOVAL TP SCH (08:59)
--- NOTE | 2022-08-07 08:13 | Diagnostic Imaging Report ---
INDICATION: Soft tissue mass about the right hip. Patient presents for ultrasound guided biopsy. Patient was brought to the procedure and placed on table in the left side down decubitus position. The skin of the right hip was prepped and draped in usual sterile fashion. Small amount of 1% lidocaine was utilized for local anesthesia. A total of 4 core biopsies were obtained of the solid mass in the soft tissues about the right hip utilizing a 14-gauge achieve needle. An additional core was obtained for cytometry purposes. The needle was removed and hemostasis was obtained. Patient tolerated procedure well and left department in stable condition. IMPRESSION: Successful ultrasound guided core biopsy of the soft tissue mass at the level of the right hip. Pathology results are currently pending. Dictated by: Dictated on workstation # [id number]
== END 2022-08-04 16:00 | disposition home or self-care (01) | DRG 872 ==
LOC: EDUNIT# 07:32 → ER 07:33 → 4TH 14:25
PROVIDERS: ADMIT Internal Medicine; ATTEND Internal Medicine
PROC: 0JBN3ZX Excision of Right Lower Leg Subcutaneous Tissue and Fascia, Percutaneous Approach, Diagnostic (ICD-10-PCS; principal; 2022-08-04)
DX: A41.9 Sepsis, unspecified organism (principal); N39.0 Urinary tract infection, site not specified; J44.9 Chronic obstructive pulmonary disease, unspecified; F17.210 Nicotine dependence, cigarettes, uncomplicated; E78.00 Pure hypercholesterolemia, unspecified; I10 Essential (primary) hypertension; R91.1 Solitary pulmonary nodule; E27.9 Disorder of adrenal gland, unspecified; R22.41 Localized swelling, mass and lump, right lower limb; H54.7 Unspecified visual loss; Z88.5 Allergy status to narcotic agent
CPT/HCPCS: 36415; 71250; 74177; 76942; 80048; 80053; 81000; 83605; 83690; 83735; 85025; 85610; 85730; 86141; 87040; 87077; 87088; 87186; 94761

== ENCOUNTER 2022-08-23 05:32 | Outpatient (CLI) | payer MEDICARE, MEDICAID ==
[~2022-08-23] VITALS: Ht 147.3 cm; Wt 41.2 kg
[~2022-08-23 05:32] MED LIST: ACET-2267 PO; AMLO-251 PO; ASPI-1238 PO; CEFD300C3 PO; HYDR-3923 PO; IPRA3AMP31 NEB; IPRA4AER INH; L.AC1CAP6 PO; LISI40TA9 PO; METO100T12 PO; ONDA4TAB11 PO; OXYC1TAB11 PO; POLY119P5 PO; PROM25TA14 PO; ROSU20TA32 PO
[2022-08-23] MEDS ORDERED: METO100T12 PO (15:26)
[2022-08-23] MEDS ORDERED: FLUT1BLS3 IH (15:26)
== END 2022-08-23 15:28 | disposition home or self-care (01) ==
LOC: PREOP 05:32
PROVIDERS: ATTEND Surgery
DX: Z01.818 Encounter for other preprocedural examination (principal)

== ENCOUNTER 2022-08-30 05:54 | Day surgery (SDC) | payer MEDICARE, MEDICAID ==
[2022-08-30] VITALS (7 sets, daily range): BP systolic 97–132; BP diastolic 53–91
[~2022-08-30] VITALS: Ht 142 cm; Wt 41.2 kg
[~2022-08-30 05:54] MED LIST changes: +FLUT1BLS3 IH
[2022-08-30] MEDS ORDERED: LACTATED RINGERS 1,000 ML IV PRN (06:15)
[2022-08-30] MEDS ORDERED: ceFAZolin INJECTION 2,000 MG ONE (06:30)
[2022-08-30] MEDS ORDERED: ceFAZolin INJECTION 2,000 MG in NS (IVPB) 50 ML IV ONE (06:30)
[2022-08-30] MEDS ORDERED: NS (IVPB) 50 ML ONE (06:40)
[2022-08-30] MEDS ORDERED: ONDANSETRON 4 MG/2 ML (SDV) Z0FRAN IVP ONE (06:45)
[2022-08-30] MEDS ORDERED: PROPOFOL INJECTION 50 ML IV ONE (07:15)
[2022-08-30] MEDS ORDERED: MIDAZOLAM 2 MG/2 ML (VERSED) VIAL ONE (07:15)
[2022-08-30] MEDS ORDERED: 0.9% SODIUM CHLORIDE PF INJ 20 ML VIAL ONE (07:23)
[2022-08-30] MEDS ORDERED: HEParin (CENTRAL IV FLUSH) 500 UNIT/5 ML SYR ONE (07:23)
[2022-08-30] MEDS ORDERED: LIDOCAINE/EPI 2% 1:200,00 (XYLOCAINE) 10 ML VIAL ONE (07:23)
--- NOTE | 2022-08-30 07:51 | Progress Note-Pre Operative ---
Pre-Operative Progress Note Date of Available H&P: Aug 16, 2022 Date H&P Reviewed: Aug 30, 2022 Time H&P Reviewed: 07:40 History & Physical: H&P Reviewed, Patient Examed, No changes noted Pre-Operative Diagnosis: lung cancer CLOVIS HSIEH DO Aug 30, 2022 07:51
--- NOTE | 2022-08-30 08:48 | Anesthesia-General Post-Op ---
MAC Patient Condition Mental Status/LOC: Same as Preop Cardiovascular: Satisfactory Nausea/Vomiting: Absent Respiratory: Satisfactory Pain: Controlled Complications: Absent Post Op Complications Complications None Follow Up Care/Instructions Patient Instructions None needed. Anesthesiology Discharge Order Discharge Order Patient is doing well, no complaints, stable vital signs, no apparent adverse anesthesia problems. No complications reported per nursing. JUICE HOLDEN CRNA Aug 30, 2022 08:48
--- NOTE | 2022-08-30 08:52 | Progress Note-Post Operative ---
Post-Operative Progess Note Surgeon (s)/Medical Legal Investigator (s) Surgeon CLOVIS HSIEH DO Medical Legal Investigator: na Pre-Operative Diagnosis lung cancer Post-Operative Diagnosis same Procedure & Operative Findings Date of Procedure 08/30/22 Procedure Performed/Findings PROCEDURE: Right internal jugular port placement using ultrasound guidance. COMPLICATIONS: None. INDICATIONS: The patient is a 72 year old female with lung cancer. Patient understands the risks and benefits of port placement and wished to proceed with the procedure. Consent was signed on the chart. PROCEDURE: The patient was taken to the operating suite, was prepped and draped in the sterile fashion. A surgical pause was performed. Ultrasound was used to locate the internal jugular vein. Once located anesthetic was infiltrated above it. Using micro-access kit, the right internal vein was accessed. Dark nonpulsatile blood was withdrawn. The wire was inserted. Fluoroscopy assured proper placement. The needle was removed. The micro-access dilator was advanced over the wire and the wire was removed. The regular wire was inserted and fluoroscopy assured proper placement. The wire was then secured. Local anesthetic was used to anesthetize from the neck for tunneling down to the right chest and for pocket creation. A 15 blade scalpel was used to make an incision over the right chest. Cautery was used to dissect down to the pectoral fascia. A pocket was created with blunt dissection. The dilator sheath was then advanced over the wire under fluoroscopy and the dilator and wire were removed. The Groshong catheter was inserted through the sheath and the sheath was then removed. The Gro[place]ong wire was removed. The catheter was then tunneled to the right chest pocket. Fluoroscopy was used to cut to length and this was then attached to the port which was then placed within the pocket. The port was then accessed without difficulty. It was then flushed with saline and then heparin. The subcutaneous tissues were then reapproximated using 3-0 Vicryl. The areas were then washed and dried. Skin Affix was placed over incision. The insertion point of the neck Skin Affix was placed over the incision. The patient tolerated the procedure well without complication and was taken to recovery room in stable condition. Chest x-ray is pending. Anesthesia Type mac c local Estimated Blood Loss Estimated blood loss (mL): minimal Specimens/Packing Specimens Removed CLOVIS Brooke DO Aug 30, 2022 08:52
--- NOTE | 2022-08-30 08:55 | Discharge Inst-Simple/Standard ---
Discharge Inst-Standard Patient Instructions/Follow Up Plan of Care/Instructions/FU: 2 weeks donny Activity as Tolerated: No Discharge Diet: Regular Diet Other Inst to Patient Follow up Appt: Make appointment for 2 week. Instructions: No lifting greater than 10 pounds. No strenuous activity. May shower in 24 hours, no tub bath or soaking. Use incentive spirometer at home as directed. No Smoking Skin/Wound Care: You have special glue over your incision that will fall off on it's own. Ice pack on 15 min and off 30 min for first 48 hours this reduces swelling and discomfort. Symptoms to Report: Appetite Changes, Extremity Discoloration, Numbness/Tingling, Swelling Increased, Bleeding Excessive, Eyesight Changes, Pain Increased, Urine Color Change, Constipation(Persistent), Fever over 101 degree F, Pain/Pressure in chest, Urinating Difficulty, Cough Up/Vomit Blood, Heart Beat Irreg/Pounding, Pain/Pressure in jaw, Vaginal Bleeding Increase, Cramps in feet or legs, Lightheadedness, Pain/Pressure in shoulder, Diarrhea(Persistent), Memory Changes Suddenly, Questions/Concerns, Weight gain consecutive days, Dizziness/Fainting, Nausea/Vomiting, Shortness of Breath, Weight gain over 2 pounds If questions or concerns contact your physician Or seek help at emergency department. CLOVIS HSIEH DO Aug 30, 2022 08:55
[2022-08-30] MEDS ORDERED: fentaNYL INJ 100 MCG/2 ML AMP IVP ONE (09:00)
[2022-08-30] MEDS ORDERED: ONDANSETRON 4 MG/2 ML (SDV) Z0FRAN IVP PRN (09:00)
--- NOTE | 2022-08-30 09:06 | Diagnostic Imaging Report ---
INDICATION: Port-A-Cath placement Portable chest obtained at 0846 a.m. There is a new Port-A-Cath in place over the right chest with catheter in the right internal jugular vein and catheter tip overlying the upper SVC. There is no pneumothorax or pleural fluid. Nodular densities in the left base and right midlung appears similar to CT study of 08/03/2022. IMPRESSION: No pneumothorax or pleural fluid following Port-A-Cath placement. Port-A-Cath tip overlying upper SVC. Nodular densities overlying right midlung and left base appears similar to chest CT of 08/03/2022. Dictated by: Dictated on workstation # [id number]
--- NOTE | 2022-08-30 10:13 | Diagnostic Imaging Report ---
INDICATION: Fluoroscopy for right chest wall port placement. FINDINGS: Fluoroscopy was provided in the OR during right chest wall port placement. 18 seconds of fluoroscopic time were utilized. A single image was obtained demonstrating a right chest wall port with the tip overlying the SVC. IMPRESSION: Fluoroscopy for port placement. Dictated by: Dictated on workstation # [id number]
== END 2022-08-30 10:00 | disposition home or self-care (01) ==
LOC: SDC 05:54
PROVIDERS: ATTEND Surgery
DX: C34.90 Malignant neoplasm of unspecified part of unspecified bronchus or lung (principal); I87.2 Venous insufficiency (chronic) (peripheral); F17.210 Nicotine dependence, cigarettes, uncomplicated; Z79.82 Long term (current) use of aspirin
CPT/HCPCS: 36561; 71045; 76000; 87081; C1788

== ENCOUNTER 2022-09-03 13:32 | Observation (INO) | payer MEDICARE, MEDICAID ==
[~2022-09-03] VITALS: Ht 147 cm; Wt 40.0 kg
[2022-09-03] MEDS ORDERED: fentaNYL INJ 100 MCG/2 ML AMP IVP ONE (14:00)
[2022-09-03] MEDS ORDERED: ONDANSETRON 4 MG/2 ML (SDV) Z0FRAN IVP ONE (14:00)
[2022-09-03] MEDS ORDERED: morphine INJ 10 MG/ML 1ML (SYR OR VIAL) IVP STA (14:19)
--- NOTE | 2022-09-03 14:20 | ED Abdominal Pain ---
General Chief Complaint: Abdominal/GI Problems Stated Complaint: LEFT SIDE BACK PAIN/VOMITING Nursing Triage Note: .PT AMB TO RM 6 PT CO OF N/V ABD PAIN ON L SIDE, PT HAS HX OF CA W METS. PT HAS RECENT PORT IN R CHEST WALL. PT RATES PAIN10/10 L LOWER ABD Source of Information: Patient, Family (sister (Micah)) Exam Limitations: No Limitations (AGNIESZKA MCKEON) History of Present Illness Date Seen by Provider: Sep 03, 2022 Time Seen by Provider: 13:50 Initial Comments This 72 y/o female presents with abdominal pain. Onset last night after the patient had gone to bed. Patient reports she has a current diagnosis of lung cancer with masses in bilateral lungs and metastasis to her left adrenal gland and left lower abdomen. Patient states the pain is throbbing and worsening. Patient reports the pain is located in her left lower abdomen and left flank. Patient states for the past 5 weeks she has had a baseline of mild-moderate abdominal pain but the pain escalated last night. Patient reports she has been taking oxycodone for pain management with little aid today. Her last dose she reports was at 0830 this morning. Patient reports associated symptoms of nausea, vomiting, chills, and chest pain. Patient denies shortness of breath, fever, head ache, new onset cough, congestion, or paresthesias. Patient states she had two soft, small bowel movements yesterday. Patient states her last regular bowel movement was last 08/28/22. Patient denies dark tarry stools or hematochezia. Patient denies hematemesis; she states her emesis has looked like bile/water. Patient states she started having pain 5 weeks ago and was diagnosed with lung cancer 3 weeks ago[address] She sees Dr. Marie for oncology. Patient states her intent is to undergo chemotherapy for life-prolonging care. Timing/Duration: 12-24 Hours Severity/Quality: Severe, Aching, Throbbing Location: LUQ, LLQ, Flank Activities at Onset: None, Rest Modifying Factors: Improves With Analgesics (oxycodone; last dose at 0830 today) Associated Symptoms: Fever/Chills, Fatigue, Nausea/Vomiting (AGNIESZKA MCKEON) Allergies and Home Medications Allergies Coded Allergies: fentanyl (Verified Allergy, Intermediate, 09/03/22) hallucinations codeine (Verified Allergy, Unknown, ITCH/HIVES, 09/03/22) Patient Home Medication List Home Medication List Reviewed: Yes (AGNIESZKA MCKEON) Acetaminophen (Tylenol Extra Strength) 500 Mg Tablet, 1,000 MG PO Q8H PRN for PAIN-MILD (1-4), (Reported) Entered as Reported by: KALPESH REYES on 08/03/22 1603 Albuterol/Ipratropium (Combivent Respimat Inhal Homeland) 20 Mcg-100 Mcg/Actuation Aero, 2 PUFF INH BID, (Reported) Entered as Reported by: KALPESH REYES on 08/03/22 160 Aspirin (Aspirin EC) 81 Mg Tablet.dr, 81 MG PO DAILY, (Reported) Entered as Reported by: KALPESH REYES on 08/03/22 160 Fluticasone/Umeclidin/Vilanter (Trelegy Ellipta 100-62.5-25) 100-62.5 Blst.w.dev , 1 EACH IH UD, (Reported) Entered as Reported by: BON KNOWLES on 08/23/22 1526 Ipratropium/Albuterol Sulfate (Iprat-Albut 0.5-3(2.5) mg/3 ml) 0.5 Mg-3 Mg (2.5 Mg Base)/3 Ml Ampul.neb, 3 ML NEB Q4H PRN for SHORTNESS OF BREATH, (Reported) Entered as Reported by: KALPESH REYES on 08/03/22 1603 Metoprolol Tartrate (Metoprolol Tartrate) 100 Mg Tablet, 100 MG PO BID, (Reported) Entered as Reported by: BON KNOWLES on 08/23/22 1526 Oxycodone HCl/Acetaminophen (Oxycodone-Acetaminophen 5-325) 5 Mg-325 Mg Tablet, 1 EACH PO Q4H PRN for PAIN-SEVERE Prescribed by: FARA CAMPOS on 08/04/22 1346 Polyethylene Glycol 3350 (Miralax) 17 Gram/Dose Powder, 17 GM PO DAILY PRN for CONSTIPATION-2ND LINE, (Reported) Entered as Reported by: KALPESH REYES on 08/03/22 1603 Promethazine HCl (Promethazine Tablet) 25 Mg Tablet, 25 MG PO Q6H PRN for NAUSEA/VOMITING Prescribed by: FARA CAMPOS on 08/04/22 1344 Rosuvastatin Calcium (Rosuvastatin Calcium) 20 Mg Tablet, 20 MG PO DAILY, (Reported) Entered as Reported by: KALPESH REYES on 08/03/22 1603 Review of Systems Review of Systems Constitutional: malaise, weakness EENTM: No Symptoms Reported Respiratory: No Symptoms Reported Cardiovascular: Chest Pain Gastrointestinal: Abdominal Pain, Nausea, Poor Appetite, Poor Fluid Intake, Vomiting Genitourinary: No Symptoms Reported Musculoskeletal: no symptoms reported Skin: no symptoms reported Psychiatric/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: No Symptoms Reported Endocrine: No Symptoms Reported Hematologic/Lymphatic: No Symptoms Reported (AGNIESZKA MCKEON) All Other Systems Reviewed Negative Unless Noted: Yes (AGNIESZKA MCKEON) Past Enaqziv-Bbbgee-Bbgnqb Hx Patient Social History Tobacco Use?: Yes Tobacco type used: Cigarettes Smoking Status: Current Everyday Smoker Substance use?: No Alcohol Use?: No Pt feels they are or have been: No (AGNIESZKA MCKEON) Immunizations Up To Date Tetanus Booster (TDap): Unknown First/Initial COVID19 Vaccinat: 12/12/2020 [employer] Second COVID19 Vaccination Noe: 01/07/2021 [employer] Third COVID19 Vaccination Date: 12/01/21 [facility] (AGNIESZKA MCKEON) Seasonal Allergies Seasonal Allergies: No (AGNIESZKA MCKEON) Past Medical History Surgery/Hospitalization HX: ABD PAIN, CA LUNG W METS Surgeries: Yes (LIPOMA BETWEEN LEGS) Hysterectomy Respiratory: Yes Pneumonia, COPD Currently Using CPAP: No Currently Using BIPAP: No Cardiac: Yes 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, 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 Genitourinary: Yes (NEPHROSTOMY TUBE-KIDNEY STRETCHED) Kidney Stones, UTI-Chronic Gastrointestinal: No Musculoskeletal: No Chronic Back Pain Endocrine: No HEENT: No Cancer: Yes Lung, Lymphoma Did You Recieve Any Treatments: Yes What Type of Treatment Did You: Chemotherapy Psychosocial: No Integumentary: No Blood Disorders: No (AGNIESZKA MCKEON) Family Medical History No Pertinent Family Hx (AGNIESZKA MCKEON) Physical Exam Vital Signs Vital Signs - First Documented 09/03/22 13:45 Temp 36.1 Pulse 126 Resp 19 B/P (MAP) 141/101 (114) Pulse Ox 97 (DOC PANTOJA MD) Vital Signs Capillary Refill : Less Than 3 Seconds (AGNIESZKA MCKEON) Height/Weight/BMI Height: '" Weight: lbs. oz. kg; 18.00 BMI Method: General Appearance: moderate distress, thin, other (jaundiced/pallor) HEENT: PERRL/EOMI Respiratory: lungs clear, normal breath sounds, no respiratory distress, no accessory muscle use Cardiovascular: regular rate, rhythm Gastrointestinal: other (hyperactive bowel sounds, diffuse guarding, dullness to percussion in LUQ and LLQ, pain with light palpation in all four quadrants, left flank pain) Neurologic/Psychiatric: alert, oriented x 3 Skin: normal color, warm/dry Lymphatic: no adenopathy (AGNIESZKA MKCEON) Progress/Results/Core Measures Results/Orders Lab Results Laboratory Tests Test 09/03/22 14:00 09/03/22 16:00 Range/Units White Blood Count 10.7 4.3-11.0 10^3/uL Red Blood Count 3.44 L 3.80-5.11 10^6/uL Hemoglobin 9.0 L 11.5-16.0 g/dL Hematocrit 29 L 35-52 % Mean Corpuscular Volume 83 80-99 fL Mean Corpuscular Hemoglobin 26 25-34 pg Mean Corpuscular Hemoglobin Concent 31 L 32-36 g/dL Red Cell Distribution Width 13.9 10.0-14.5 % Platelet Count 300 130-400 10^3/uL Mean Platelet Volume 8.8 L 9.0-12.2 fL Immature Granulocyte % (Auto) 2 % Neutrophils (%) (Auto) 80 H 42-75 % Lymphocytes (%) (Auto) 9 L 12-44 % Monocytes (%) (Auto) 7 0-12 % Eosinophils (%) (Auto) 2 0-10 % Basophils (%) (Auto) 1 0-10 % Neutrophils # (Auto) 8.6 H 1.8-7.8 10^3/uL Lymphocytes # (Auto) 0.9 L 1.0-4.0 10^3/uL Monocytes # (Auto) 0.8 0.0-1.0 10^3/uL Eosinophils # (Auto) 0.2 0.0-0.3 10^3/uL Basophils # (Auto) 0.1 0.0-0.1 10^3/uL Immature Granulocyte # (Auto) 0.2 H 0.0-0.1 10^3/uL Sodium Level 130 L 135-145 MMOL/L Potassium Level 4.0 3.6-5.0 MMOL/L Chloride Level 98 98-107 MMOL/L Carbon Dioxide Level 21 21-32 MMOL/L Anion Gap 11 5-14 MMOL/L Blood Urea Nitrogen 13 7-18 MG/DL Creatinine 0.83 0.60-1.30 MG/DL Estimat Glomerular Filtration Rate 76 BUN/Creatinine Ratio 16 Glucose Level 104 70-105 MG/DL Calcium Level 9.4 8.5-10.1 MG/DL Corrected Calcium 9.4 8.5-10.1 MG/DL Total Bilirubin 0.5 0.1-1.0 MG/DL Aspartate Amino Transf (AST/SGOT) 22 5-34 U/L Alanine Aminotransferase (ALT/SGPT) 10 0-55 U/L Alkaline Phosphatase 48 40-136 U/L C-Reactive Protein High Sensitivity 4.65 H 0.00-0.50 MG/DL Total Protein 7.2 6.4-8.2 GM/DL Albumin 4.0 3.2-4.5 GM/DL Lipase 22 8-78 U/L Urine Color YELLOW Urine Clarity CLEAR Urine pH 6.5 5-9 Urine Specific [place] 1.010 L 1.016-1.022 Urine Protein NEGATIVE NEGATIVE Urine Glucose (UA) NEGATIVE NEGATIVE Urine Ketones NEGATIVE NEGATIVE Urine Nitrite NEGATIVE NEGATIVE Urine Bilirubin NEGATIVE NEGATIVE Urine Urobilinogen 0.2 < = 1.0 MG/DL Urine Leukocyte Esterase 1+ H NEGATIVE Urine RBC (Auto) NEGATIVE NEGATIVE Urine RBC NONE /HPF Urine WBC RARE /HPF Urine Squamous Epithelial Cells 2-5 /HPF Urine Crystals NONE /LPF Urine Bacteria NEGATIVE /HPF Urine Casts NONE /LPF Urine Mucus NEGATIVE /LPF Urine Culture Indicated NO (DOC PANTOJA MD) My Orders Orders - DOC PANTOJA MD Implanted Port: Access (09/03/22 13:53) Cbc With Automated Diff (09/03/22 13:53) Comprehensive Metabolic Panel (09/03/22 13:53) Hs C Reactive Protein (09/03/22 13:53) Lipase (09/03/22 13:53) Ua Culture If Indicated (09/03/22 13:53) Ondansetron Injection (Zofran Injectio (09/03/22 14:00) Morphine Injection (Morphine Injection (09/03/22 14:19) Ct Abdomen/Pelvis W (09/03/22 14:54) Iohexol Injection (Omnipaque 350 Mg/Ml 1 (09/03/22 15:15) Di Iv Start (Assessment) .IV start (09/03/22 15:01) Received Contrast (Hold Metformin- Contr (09/03/22 15:15) Ns (Ivpb) (Sodium Chloride 0.9% Ivpb Bag (09/03/22 15:15) Lactated Ringers (Lr 1000 Ml Iv Solution (09/03/22 15:45) Piperacillin Sodium/Tazobactam (Zosyn Vi (09/03/22 16:30) Code/Resuscitation (09/03/22 16:58) (DOC PANTOJA MD) Medications Given in ED Current Medications Medications Dose Ordered Sig/Ade Route Start Time Stop Time Status Last Admin Dose Admin Iohexol 100 ml ONCE ONCE IV 09/03/22 15:15 09/03/22 15:16 DC 09/03/22 15:17 100 ML Lactated Ringer's 1,000 ml @ 0 mls/hr Q0M ONCE IV 09/03/22 15:45 09/03/22 15:46 DC 09/03/22 16:06 0 MLS/HR Ondansetron HCl 8 mg ONCE ONCE IVP 09/03/22 14:00 09/03/22 14:01 DC 09/03/22 14:24 8 MG Piperacillin Sod/ Tazobactam Sod 4.5 gm/Sodium Chloride 100 ml @ 200 mls/hr ONCE ONCE IV 09/03/22 16:30 09/03/22 16:59 09/03/22 16:45 200 MLS/HR Sodium Chloride 100 ml ONCE ONCE IV 09/03/22 15:15 09/03/22 15:16 DC 09/03/22 15:17 100 ML (DOC PANTOJA MD) Vital Signs/I&O 09/03/22 13:45 Temp 36.1 Pulse 126 Resp 19 B/P (MAP) 141/101 (114) Pulse Ox 97 (DOC PANTOJA MD) Blood Pressure Mean: 114 Departure Communication (Admissions) Time/Spoke to Admitting Phy: 16:25 Dr. Campos Time/Spoke to Consulting Phy: 16:30 Dr. Marroquin (DOC PANTOJA MD) Impression Primary Impression: Left sided abdominal pain Additional Impressions: Metastatic primary lung cancer Qualified Codes: C34.90 - Malignant neoplasm of unspecified part of unspecified bronchus or lung Colitis Disposition: ADMITTED INPATIENT Condition: Stable Admissions Decision to Admit Reason: Admit from ER (General) Decision to Admit/Date: Sep 03, 2022 Time/Decision to Admit Time: 16:25 (DOC PANTOJA MD) Departure-Patient Inst. Referrals: BAIRON HARRIS MD (PCP/Family) Primary Care Physician AGNIESZKA MCKEON Sep 03, 2022 14:20 DOC PANTOJA MD Sep 03, 2022 17:04
[2022-09-03 14:23] LABS: BASOPHILS # (AUTO) 0.1 10^3/uL (0.0-0.1); BASOPHILS % (AUTO) 1 % (0-10); EOSINOPHILS # (AUTO) 0.2 10^3/uL (0.0-0.3); EOSINOPHILS % (AUTO) 2 % (0-10); HEMATOCRIT 29 % (35-52); LYMPHOCYTES # (AUTO) 0.9 10^3/uL (1.0-4.0); LYMPHOCYTES % (AUTO) 9 % (12-44); MEAN CORPUSCULAR HEMOGLOBIN 26 pg (25-34); MEAN CORPUSCULAR HGB CONC 31 g/dL (32-36); MEAN CORPUSCULAR VOLUME 83 fL (80-99); MEAN PLATELET VOLUME 8.8 fL (9.0-12.2); MONOCYTES # (AUTO) 0.8 10^3/uL (0.0-1.0); MONOCYTES % (AUTO) 7 % (0-12); NEUTROPHILS # (AUTO) 8.6 10^3/uL (1.8-7.8); NEUTROPHILS % (AUTO) 80 % (42-75); PLATELET COUNT 300 10^3/uL (130-400); WHITE BLOOD COUNT 10.7 10^3/uL (4.3-11.0)
[2022-09-03 14:39] LABS: CALCIUM 9.4 MG/DL (8.5-10.1)
[2022-09-03 14:40] LABS: TOTAL PROTEIN 7.2 GM/DL (6.4-8.2)
[2022-09-03 14:42] LABS: BILIRUBIN,TOTAL 0.5 MG/DL (0.1-1.0)
[2022-09-03 14:43] LABS: CREATININE SERUM 0.83 MG/DL (0.60-1.30)
[2022-09-03] MEDS ORDERED: NS 100 ML (IVPB) BAG IV ONE (15:15)
[2022-09-03] MEDS ORDERED: HOLD METFORMIN - RECEIVED CONTRAST 20 ML VIAL IV SCH (15:15)
[2022-09-03] MEDS ORDERED: IOHEXOL 350 MG/ML 100 ML (OMNIPAQUE 350) VIAL IV ONE (15:15)
--- NOTE | 2022-09-03 15:42 | Diagnostic Imaging Report ---
EXAMINATION: CT abdomen and pelvis with intravenous contrast. TECHNIQUE: Multiple contiguous axial images were obtained through the abdomen and pelvis after the uneventful administration of intravenous contrast. All CT scans use one or more of the following dose optimizing techniques: automated exposure control, MA and/or KvP adjustment based on patient size and exam type or iterative reconstruction. HISTORY: Left-sided abdominal pain. History of lung cancer. COMPARISON: 08/03/2022. FINDINGS: The heart is unremarkable. Soft tissue mass is seen in the left lung base measuring 3.3 x 3.0 cm, previously measuring 2.8 x 2.7 cm. Interval large increase in size in a metastatic lesion within the left adrenal gland measuring 5.9 x 5.5 cm, previously measuring 4.6 x 3.8 cm. There has also been interval increase in size in the smaller lesion within the right adrenal gland measuring 3.1 x 2.8 cm. Stable prominence of the right renal pelvis, which may represent extrarenal pelvis. No hydronephrosis on the left. The urinary bladder is mildly distended. The liver, spleen, and pancreas have a normal appearance. The gallbladder is nondistended. There is no pathologically enlarged mesenteric or retroperitoneal adenopathy. Fluid-filled mildly prominent loops of large and small bowel are seen throughout the abdomen and pelvis. No bowel obstruction. No free fluid or free air. No acute osseous abnormality. There is calcified aortic and iliac atherosclerotic plaque without aneurysm. Interval increase in size in soft tissue masses in the subcutaneous tissues of the perineum, with the largest on the right measuring 2.5 x 2.4 cm. There is partial visualization of a soft tissue mass along the lateral aspect of the right iliac crest. IMPRESSION: 1. Marked increase in size in a metastatic lesion within the left adrenal gland. This may be causing local mass effect and represent the patient's abdominal pain. There has also been interval increase in size in the smaller metastatic lesion within the right adrenal gland. 2. Increase in size in metastatic lesions within the subcutaneous tissues of the perineum. These may represent metastatic lymph nodes. 3. Slight increase in size in the soft tissue mass within the left lung base. 4. Fluid-filled prominent loops of large and small bowel throughout the abdomen and pelvis, which may represent enteritis/colitis. Dictated by: Dictated on workstation # [id number]
[2022-09-03] MEDS ORDERED: LACTATED RINGERS 1,000 ML IV ONE (15:45)
[2022-09-03 16:09] LABS: BILIRUBIN,URINE NEGATIVE (NEGATIVE); CLARITY,URINE CLEAR; COLOR,URINE YELLOW; GLUCOSE, URINE (UA) NEGATIVE (NEGATIVE); KETONES,URINE NEGATIVE (NEGATIVE); LEUKOCYTE ESTERASE ,URINE 1+ (NEGATIVE); NITRITE,URINE NEGATIVE (NEGATIVE); PH,URINE 6.5 (5-9); PROTEIN,URINE NEGATIVE (NEGATIVE)
[2022-09-03 16:21] LABS: BACTERIA,URINE NEGATIVE /HPF; WBC,URINE RARE /HPF
[2022-09-03] MEDS ORDERED: PIPERACILLIN SODIUM/TAZOBACTAM 4.5 GM in NS (IVPB) 100 ML IV ONE (16:30)
[2022-09-03 17:43] VITALS: BP 138/79
[2022-09-03] MEDS: oxyCODONE/APAP 5/325MG (PERCOCET 5) TABLET PO PRN ×2 (17:50→20:50)
[2022-09-03] MEDS: NS IV 1000 ML 1,000 ML IV SCH (17:50)
[2022-09-03 19:30] VITALS: BP 110/75
[2022-09-03] MEDS: PIPERACILLIN SODIUM/TAZOBACTAM 4.5 GM in NS (IVPB) 100 ML IV SCH (19:40)
[2022-09-03] MEDS: ONDANSETRON 4 MG/2 ML (SDV) Z0FRAN IVP PRN (20:49)
[2022-09-04] VITALS (7 sets, daily range): BP systolic 131–161; BP diastolic 70–90
[2022-09-04] MEDS: oxyCODONE/APAP 5/325MG (PERCOCET 5) TABLET PO PRN ×5 (00:22→21:11)
[2022-09-04] MEDS: morphine INJ 4 MG/ML 1 ML (VIAL/SYRINGE) IVP PRN ×2 (02:33→19:24)
[2022-09-04] MEDS: NS IV 1000 ML 1,000 ML IV SCH ×2 (02:33→13:56)
[2022-09-04] MEDS: PIPERACILLIN SODIUM/TAZOBACTAM 4.5 GM in NS (IVPB) 100 ML IV SCH (02:33)
[2022-09-04] MEDS: ONDANSETRON 4 MG/2 ML (SDV) Z0FRAN IVP PRN (07:35)
[2022-09-04] MEDS ORDERED: FOLIC ACID 1 MG TAB PO NR (09:40)
[2022-09-04] MEDS ORDERED: NICOTINE 7 MG (NICODERM) PATCH TD NR (10:00)
--- NOTE | 2022-09-04 10:00 | History & Physical-Hospitalist ---
History of Present Illness HPI/Chief Complaint Pt is a 72yoCF with a PMH of metastatic cancer who presented to the ER due to severe pain. She has known metastatic lung cancer with mets in her lungs and left adrenal gland. She is chronically on narcotics due to pain but it is worsened over the past 5 weeks. She describes it as throbbing in nature. Her pain was unable to be controlled in the emergency department and she was admitted for intractable pain. She was given IV morphine which improved her pain and transition to oxycodone this morning. She is feeling much better. She is scheduled to start chemotherapy on the and saw Dr. Begum this morning. She is requesting a nicotine patch. Source: patient Date Seen 09/04/22 Time Seen by a Provider: 09:55 Attending Physician Oscar Garnett MD PCP Admitting Physician: Marianne Platt MD Attending Physician: Marianne Platt MD Referring Physician Date of Admission Sep 03, 2022 at 16:25 Home Medications & Allergies Home Medications Reviewed patient Home Medication Reconciliation performed by pharmacy medication reconciliations automotive service technician and/or nursing. Patients Allergies have been reviewed. Allergies Allergies Coded Allergies fentanyl (Verified Allergy, Intermediate, 09/03/22) hallucinations codeine (Verified Allergy, Unknown, ITCH/HIVES, 09/03/22) Past Qxafkyd-Qoxatn-Zsuhoh Hx Patient Social History Tobacco Use?: Yes Tobacco type used: Cigarettes Smoking Status: Current Everyday Smoker Use of E-Cig and/or Vaping dev: No Substance use?: No Alcohol Use?: No Pt feels they are or have been: No Immunizations Up To Date First/Initial COVID19 Vaccinat: 12/12/2020 [employer] Second COVID19 Vaccination Noe: 01/07/2021 [employer] Tetanus Booster (TDap): Unknown Hepatitis A: No Hepatitis B: No Date of Pneumonia Vaccine: Jul 25, 2022 Seasonal Allergies Seasonal Allergies: No Current Status status: No status: No Advance Directives: No Communicates: Verbally Primary Language: Kittitian Preferred Spoken Language: Kittitian Is interpretation needed?: No Implanted or Applied Medical D: Port-a-cath Past Medical History Surgeries: Hysterectomy Pneumonia, COPD Currently Using CPAP: No Currently Using BIPAP: No 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, 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 Kidney Stones, UTI-Chronic Chronic Back Pain Lung, Lymphoma Did You Recieve Any Treatments: Yes What Type of Treatment Did You: Chemotherapy Blood Disorders: No Family Medical History No Pertinent Family Hx Review of Systems Constitutional: No chills, No fever EENTM: no symptoms reported Respiratory: no symptoms reported Cardiovascular: No chest pain, No edema Gastrointestinal: nausea, vomiting Genitourinary: no symptoms reported Musculoskeletal: see HPI Skin: no symptoms reported Psychiatric/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: No Symptoms Reported Physical Exam Physical Exam Vital Signs Vital Signs - First Documented 09/03/22 09/03/22 13:45 17:07 Temp 36.1 Pulse 126 Resp 19 B/P (MAP) 141/101 (114) Pulse Ox 97 O2 Delivery Room Air Capillary Refill : Less Than 3 Seconds Height, Weight, BMI Height: '" Weight: lbs. oz. kg; 18.51 BMI Method: General Appearance: No Apparent Distress, Chronically ill, Thin HEENT: PERRL/EOMI, Moist Mucous Membranes; No Scleral Icterus (L), No Scleral Icterus (R) Neck: Normal Inspection, Supple Respiratory: Lungs Clear, No Accessory Muscle Use, No Respiratory Distress Cardiovascular: Regular Rate, Rhythm, No Murmur Gastrointestinal: Normal Bowel Sounds, Non Tender, Soft Extremity: Normal Capillary Refill, No Calf Tenderness, No Pedal Edema Neurologic/Psychiatric: Alert, Oriented x3, Normal Mood/Affect Results Results/Procedures Labs Laboratory Tests 09/03/22 14:00 Patient resulted labs reviewed. Imaging: Reviewed Imaging Report Imaging [facility] [place], [place] NAME: NADIA SCHULTZ [facility] REC#: [id number] PT STATUS: REG ER : 1950 PHYSICIAN: DOC PANTOJA MD ADMIT DATE: 09/03/22/ER Signed Date of Exam:09/03/22 CT ABDOMEN/PELVIS W EXAMINATION: CT abdomen and pelvis with intravenous contrast. TECHNIQUE: Multiple contiguous axial images were obtained through the abdomen and pelvis after the uneventful administration of intravenous contrast. All CT scans use one or more of the following dose optimizing techniques: automated exposure control, MA and/or KvP adjustment based on patient size and exam type or iterative reconstruction. HISTORY: Left-sided abdominal pain. History of lung cancer. COMPARISON: 08/03/2022. FINDINGS: The heart is unremarkable. Soft tissue mass is seen in the left lung base measuring 3.3 x 3.0 cm, previously measuring 2.8 x 2.7 cm. Interval large increase in size in a metastatic lesion within the left adrenal gland measuring 5.9 x 5.5 cm, previously measuring 4.6 x 3.8 cm. There has also been interval increase in size in the smaller lesion within the right adrenal gland measuring 3.1 x 2.8 cm. Stable prominence of the right renal pelvis, which may represent extrarenal pelvis. No hydronephrosis on the left. The urinary bladder is mildly distended. The liver, spleen, and pancreas have a normal appearance. The gallbladder is nondistended. There is no pathologically enlarged mesenteric or retroperitoneal adenopathy. Fluid-filled mildly prominent loops of large and small bowel are seen throughout the abdomen and pelvis. No bowel obstruction. No free fluid or free air. No acute osseous abnormality. There is calcified aortic and iliac atherosclerotic plaque without aneurysm. Interval increase in size in soft tissue masses in the subcutaneous tissues of the perineum, with the largest on the right measuring 2.5 x 2.4 cm. There is partial visualization of a soft tissue mass along the lateral aspect of the right iliac crest. IMPRESSION: 1. Marked increase in size in a metastatic lesion within the left adrenal gland. This may be causing local mass effect and represent the patient's abdominal pain. There has also been interval increase in size in the smaller metastatic lesion within the right adrenal gland. 2. Increase in size in metastatic lesions within the subcutaneous tissues of the perineum. These may represent metastatic lymph nodes. 3. Slight increase in size in the soft tissue mass within the left lung base. 4. Fluid-filled prominent loops of large and small bowel throughout the abdomen and pelvis, which may represent enteritis/colitis. Dictated by: Dictated on workstation # [id number] Dict: 09/03/22 1527 Trans: 09/03/22 154 [facility] [id number] Interpreted by: ЕЛЕНА SMITH DO Electronically signed by: ЕЛЕНА SMITH DO 09/03/22 1542 Assessment/Plan Admission Diagnosis intractable pain Admission Status: Observation Assessment and Plan intractable pain Metastatic lung cancer Discussed with Dr Marroquin Pain improved Resume folic acid Planning to start chemo on 09/06 Offered patient another night in the hospital as she had IV morphine overnight Will check in her after lunch and see if pain still controlled and tolerating oral intake Nicotine patch RONEN PÉREZ MD Sep 04, 2022 10:00
[2022-09-04] MEDS ORDERED: OXYC5TAB PO (13:29)
[2022-09-04] MEDS ORDERED: FOLI1TAB33 PO (13:31)
[2022-09-04] MEDS ORDERED: LISI40TA9 PO (13:31)
[2022-09-04] MEDS ORDERED: PROM25TA14 PO (13:33)
[2022-09-04] MEDS: ONDANSETRON 4 MG (ZOFRAN) ORAL DISSOLVE TAB PO PRN (17:01)
[2022-09-05] MEDS: oxyCODONE/APAP 5/325MG (PERCOCET 5) TABLET PO PRN ×3 (00:54→10:07)
[2022-09-05 03:29] VITALS: BP 161/97
[2022-09-05 07:19] VITALS: BP 178/105
[2022-09-05] MEDS ORDERED: UMECLIDINIUM BROMIDE (INCRUSE ELLIPTA) 7'S IH SCH (08:00)
[2022-09-05] MEDS ORDERED: NON-FORMULARY MEDICATION 1 EA EA (Fluticasone/Umeclidin/Vilanter (Trelegy Ellipta 100-62.5 IH SCH (08:00)
[2022-09-05] MEDS ORDERED: RT--FLUTICASONE/SALMETEROL 232-14 (AIRDUO RespiCLICK) IH SCH ×2 (08:00)
[2022-09-05] MEDS: ONDANSETRON 4 MG (ZOFRAN) ORAL DISSOLVE TAB PO PRN (08:13)
--- NOTE | 2022-09-05 08:37 | Discharge Inst-Simple/Standard ---
Discharge Inst-Standard Discharge Medications New, Converted or Re-Newed RX: Transmitted to Pharmacy Patient Instructions/Follow Up Plan of Care/Instructions/FU: Please continue to take your medications as written. Please follow up with your primary care doctor to follow up this hospital stay. Activity as Tolerated: Yes Discharge Diet: No Restrictions Return to The Hospital For: Chest pain, shortness of breath, fever, weakness, if you feel you are getting worse. RONEN PÉREZ MD Sep 05, 2022 08:37
[2022-09-05] MEDS ORDERED: lisINopril 20 MG (PRINIVIL) TABLET PO SCH (09:00)
[2022-09-05] MEDS ORDERED: PATCH REMOVAL TP NR (09:00)
[2022-09-05] MEDS ORDERED: ASPIRIN E.C. 81 MG (ECOTRIN) TAB PO SCH (09:00)
[2022-09-05] MEDS ORDERED: ROSUVASTATIN 20 MG (CRESTOR) TABLET PO SCH (09:00)
[2022-09-05] MEDS ORDERED: meTOprolol TARTRATE 50 MG (LOPRESSOR) TAB PO SCH (09:00)
[2022-09-05] MEDS ORDERED: FOLIC ACID 1 MG TAB PO SCH (09:00)
--- NOTE | 2022-09-05 09:15 | Discharge Summary ---
Diagnosis/Chief Complaint Date of Admission Sep 03, 2022 at 16:25 Date of Discharge Discharge Date: Sep 05, 2022 Admission Diagnosis intractable pain Primary Care Oscar Harris MD Discharge Summary Discharge Physical Exam Allergies: Coded Allergies: fentanyl (Verified Allergy, Intermediate, 09/03/22) hallucinations codeine (Verified Allergy, Unknown, ITCH/HIVES, 09/03/22) Vitals & I&Os Vital Signs Date Time Temp Pulse Resp B/P (MAP) Pulse Ox O2 Delivery O2 Flow Rate FiO2 09/05/22 08:17 Room Air 09/05/22 07:19 36.0 95 18 178/105 (129) 95 General Appearance: No Apparent Distress, WD/WN Respiratory: Lungs Clear, No Respiratory Distress Cardiovascular: Regular Rate, Rhythm, No Murmur Neurologic/Psychiatric: Alert, Oriented x3 Hospital Course Patient is a 72-year-old female who was admitted due to intractable pain secondary to metastatic lung cancer. She was treated with IV morphine and transition to oral oxycodone. Her pain improved and she was able to be discharged home in stable improved condition. She has a prescription of oxycodone at home so did not require a refill but I did inform her she could take 2 tabs for severe pain. She is to follow-up with Dr. Begum tomorrow to start chemotherapy. Labs (last 24 hrs) Patient resulted labs reviewed. Imaging: Reviewed Imaging Report Discussion & Recommendations Discharge Planning: >30 minutes discharge planning Discharge Home Medications: Active Scripts Active Reported Promethazine Tablet (Promethazine HCl) 25 Mg Tablet 25 Mg PO Q6H PRN Lisinopril 40 Mg Tablet 20 Mg PO DAILY TAKES 1/2 OF (40MG) TAB Folic Acid 1 Mg Tablet 1 Mg PO DAILY Oxycodone HCl 5 Mg Tablet 5 Mg PO Q4H PRN FILLED 09-01-2022 #50 Metoprolol Tartrate 100 Mg Tablet 100 Mg PO BID Trelegy Ellipta 100-62.5-25 (Fluticasone/Umeclidin/Vilanter) 100-62.5 Blst.w.dev 1 Each IH UD Aspirin EC (Aspirin) 81 Mg Tablet. 81 Mg PO DAILY Rosuvastatin Calcium 20 Mg Tablet 20 Mg PO DAILY Instructions to patient/family Please see electronic discharge instructions given to patient. Copy Copies To 1: OSACR HARRIS MD, KATELYN M MD Sep 05, 2022 09:15
[2022-09-05] MEDS ORDERED: HEParin (CENTRAL IV FLUSH) 500 UNIT/5 ML SYR IV NR (10:00)
[2022-09-05 11:07] VITALS: BP 178/105
== END 2022-09-05 11:07 | disposition home or self-care (01) ==
LOC: EDUNIT# 13:32 → ER 13:34 → UNDOADMOB 16:25 → 4TH 16:25 → UNDODISOB 09-05 11:07
PROVIDERS: ADMIT Internal Medicine; ATTEND Internal Medicine
DX: R10.9 Unspecified abdominal pain (principal); C34.91 Malignant neoplasm of unspecified part of right bronchus or lung; C79.72 Secondary malignant neoplasm of left adrenal gland; C79.89 Secondary malignant neoplasm of other specified sites; Z79.899 Other long term (current) drug therapy
CPT/HCPCS: 74177; 80053; 81000; 83690; 85025; 86141; 96361 ×2; 96366; 96376 ×2; 99284; G0378; 36415

== ENCOUNTER 2022-09-08 05:48 | Inpatient (IN) | payer MEDICARE, MEDICAID ==
[~2022-09-08] VITALS: Ht 148 cm; Wt 52.9 kg
[~2022-09-08 05:48] MED LIST changes: +FOLI1TAB33 PO; +OXYC5TAB PO
[2022-09-08] MEDS ORDERED: morphine INJ 10 MG/ML 1ML (SYR OR VIAL) IVP STA (06:09)
[2022-09-08] MEDS ORDERED: NS IV 1000 ML 1,000 ML IV SCH (06:15)
[2022-09-08] MEDS ORDERED: ONDANSETRON 4 MG/2 ML (SDV) Z0FRAN IVP ONE (06:15)
[2022-09-08 06:16] LABS: BASOPHILS % (AUTO) 0 % (0-10); EOSINOPHILS % (AUTO) 0 % (0-10); HEMATOCRIT 29 % (35-52); HEMOGLOBIN 8.9 g/dL (11.5-16.0); LYMPHOCYTES # (AUTO) 0.7 10^3/uL (1.0-4.0); LYMPHOCYTES % (AUTO) 3 % (12-44); MEAN CORPUSCULAR HEMOGLOBIN 26 pg (25-34); MEAN CORPUSCULAR HGB CONC 31 g/dL (32-36); MEAN CORPUSCULAR VOLUME 84 fL (80-99); MEAN PLATELET VOLUME 8.7 fL (9.0-12.2); MONOCYTES # (AUTO) 0.3 10^3/uL (0.0-1.0); MONOCYTES % (AUTO) 2 % (0-12); NEUTROPHILS # (AUTO) 19.6 10^3/uL (1.8-7.8); NEUTROPHILS % (AUTO) 94 % (42-75); PLATELET COUNT 331 10^3/uL (130-400); WHITE BLOOD COUNT 20.8 10^3/uL (4.3-11.0)
--- NOTE | 2022-09-08 06:16 | ED Abdominal Pain ---
General Chief Complaint: Abdominal/GI Problems Stated Complaint: ABD PAIN Nursing Triage Note: PT ARRIVAL TO ER [facility] FROM HOME WITH COMPLAINT OF ABDOMINAL PAIN X A COUPLE DAYS. PT STATES THAT THIS HAS BEEN GOING ON, BUT HAS WORSENED SINCE LAST NIGHT. PAIN DESCRIBED SHARP PAIN RATED AT 10/10. PT TOOK HER HOME MORPHINE AT 2300 WITH SOME RELIEF. PT IS CANCER PATIENT THAT IS IN LUNG, BONE, AND VITAL ORGANS. PT DID START CHEMO YESTERDAY. Source of Information: Patient Exam Limitations: No Limitations History of Present Illness Date Seen by Provider: Sep 08, 2022 Time Seen by Provider: 06:00 Initial Comments Patient is a 72-year-old female with a history of metastatic lung cancer who presents to the emergency room with a chief complaint of diffuse abdominal pain. Patient states that she just started chemotherapy yesterday, report was present approximately a week ago. She states she has not had a bowel movement since Sunday. She is on oral morphine, her last dose was at 11. She did wake up at about 230 or 3 AM and took an oxycodone. She has been nauseous without vomiting. She is on stool softeners and oral laxatives. She denies chest pain or shortness of breath. No urinary complaints. Movement makes her pain much worse. Per review of the medical record the patient was admitted last week with intract able abdominal pain. She had a CT of the abdomen and pelvis which showed significant enlargement of the left adrenal mass. She also had findings consistent with enterocolitis. Discharge labs were normal. All other review of systems reviewed and negative except as stated Timing/Duration: 1-2 Days Severity/Quality: Cramping, Sharp Location: Generalized Abdomen Activities at Onset: None Associated Symptoms: Nausea/Vomiting (nausea without vomiting), Other (constipation) Allergies and Home Medications Allergies Coded Allergies: fentanyl (Verified Allergy, Intermediate, 09/03/22) hallucinations codeine (Verified Allergy, Unknown, ITCH/HIVES, 09/03/22) Patient Home Medication List Home Medication List Reviewed: Yes Aspirin (Aspirin EC) 81 Mg Tablet., 81 MG PO DAILY, (Reported) Entered as Reported by: KALPESH REYES on 08/03/22 1603 Fluticasone/Umeclidin/Vilanter (Trelegy Ellipta 100-62.5-25) 100-62.5 Blst.w.dev, 1 EACH IH UD, (Reported) Entered as Reported by: BON KNOWLES on 08/23/22 1526 Folic Acid (Folic Acid) 1 Mg Tablet, 1 MG PO DAILY, (Reported) Entered as Reported by: CHRISTIAN MUSE on 09/04/22 1331 Lisinopril (Lisinopril) 40 Mg Tablet, 20 MG PO DAILY, (Reported) Entered as Reported by: CHRISTIAN MUSE on 09/04/22 1331 Metoprolol Tartrate (Metoprolol Tartrate) 100 Mg Tablet, 100 MG PO BID, (Reported) Entered as Reported by: BON KNOWLES on 08/23/22 1526 Oxycodone HCl (Oxycodone HCl) 5 Mg Tablet, 5 MG PO Q4H PRN for PAIN-SEVERE (8- 10), (Reported) Entered as Reported by: CHRISTIAN MUSE on 09/04/22 1329 Promethazine HCl (Promethazine Tablet) 25 Mg Tablet, 25 MG PO Q6H PRN for NAUSEA /VOMITING, (Reported) Entered as Reported by: CHRISTIAN MUSE on 09/04/22 1333 Rosuvastatin Calcium (Rosuvastatin Calcium) 20 Mg Tablet, 20 MG PO DAILY, (Reported) Entered as Reported by: KALPESH REYES on 08/03/22 1603 Review of Systems Review of Systems Constitutional: see HPI Gastrointestinal: Abdominal Pain, Constipated, Nausea Genitourinary: No Symptoms Reported Musculoskeletal: no symptoms reported Skin: no symptoms reported Psychiatric/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: No Symptoms Reported All Other Systems Reviewed Negative Unless Noted: Yes Past Jpxeaif-Jjkfko-Sfilpk Hx Patient Social History Tobacco Use?: Yes Tobacco type used: Cigarettes Smoking Status: Current Everyday Smoker Use of E-Cig and/or Vaping dev: No Substance use?: No Alcohol Use?: No Pt feels they are or have been: No Immunizations Up To Date Tetanus Booster (TDap): Unknown Influenza Vaccine Up-to-Date: No; Not Current First/Initial COVID19 Vaccinat: 12/12/2020 [employer] Second COVID19 Vaccination Noe: 01/07/2021 [employer] Third COVID19 Vaccination Date: 12/01/21 [facility] Seasonal Allergies Seasonal Allergies: No Past Medical History Surgery/Hospitalization HX: ABD PAIN, CA LUNG W METS Surgeries: Yes (LIPOMA BETWEEN LEGS) Hysterectomy Respiratory: Yes Pneumonia, COPD Currently Using CPAP: No Currently Using BIPAP: No Cardiac: Yes 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, 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: No [employer] History: Hysterectomy Genitourinary: Yes (NEPHROSTOMY TUBE-KIDNEY STRETCHED) Kidney Stones, UTI-Chronic Gastrointestinal: No Musculoskeletal: No Chronic Back Pain Endocrine: No HEENT: No Cancer: Yes Lung, Lymphoma Did You Recieve Any Treatments: Yes What Type of Treatment Did You: Chemotherapy Psychosocial: No Integumentary: No Blood Disorders: No Family Medical History No Pertinent Family Hx Physical Exam Vital Signs Vital Signs - First Documented 09/08/22 05:50 Temp 36.5 Pulse 90 Resp 20 B/P (MAP) 166/99 (121) Pulse Ox 97 O2 Delivery Room Air Capillary Refill : Less Than 3 Seconds Height/Weight/BMI Height: '" Weight: lbs. oz. kg; 18.51 BMI Method: General Appearance: moderate distress, cachetic, thin, other (appears ill) HEENT: PERRL/EOMI Neck: normal inspection Respiratory: lungs clear, normal breath sounds, no respiratory distress, no accessory muscle use Cardiovascular: regular rate, rhythm Gastrointestinal: abnormal bowel sounds (hypoactive, but present), distended (mildly), tenderness (diffuse abdominal tenderness with light palpation) Extremities: normal range of motion, normal inspection Neurologic/Psychiatric: alert, oriented x 3, other (anxious) Skin: normal color, warm/dry Progress/Results/Core Measures Results/Orders Lab Results Laboratory Tests Test 09/08/22 06:00 09/08/22 06:20 Range/Units White Blood Count 20.8 H 4.3-11.0 10^3/uL Red Blood Count 3.44 L 3.80-5.11 10^6/uL Hemoglobin 8.9 L 11.5-16.0 g/dL Hematocrit 29 L 35-52 % Mean Corpuscular Volume 84 80-99 fL Mean Corpuscular Hemoglobin 26 25-34 pg Mean Corpuscular Hemoglobin Concent 31 L 32-36 g/dL Red Cell Distribution Width 14.2 10.0-14.5 % Platelet Count 331 130-400 10^3/uL Mean Platelet Volume 8.7 L 9.0-12.2 fL Immature Granulocyte % (Auto) 1 % Neutrophils (%) (Auto) 94 H 42-75 % Lymphocytes (%) (Auto) 3 L 12-44 % Monocytes (%) (Auto) 2 0-12 % Eosinophils (%) (Auto) 0 0-10 % Basophils (%) (Auto) 0 0-10 % Neutrophils # (Auto) 19.6 H 1.8-7.8 10^3/uL Lymphocytes # (Auto) 0.7 L 1.0-4.0 10^3/uL Monocytes # (Auto) 0.3 0.0-1.0 10^3/uL Eosinophils # (Auto) 0.0 0.0-0.3 10^3/uL Basophils # (Auto) 0.0 0.0-0.1 10^3/uL Immature Granulocyte # (Auto) 0.1 0.0-0.1 10^3/uL Neutrophils % (Manual) 93 % Lymphocytes % (Manual) 3 % Monocytes % (Manual) 1 % Band Neutrophils 3 % Hypochromasia SLIGHT Anisocytosis SLIGHT Microcytosis SLIGHT Sodium Level 132 L 135-145 MMOL/L Potassium Level 4.1 3.6-5.0 MMOL/L Chloride Level 99 98-107 MMOL/L Carbon Dioxide Level 22 21-32 MMOL/L Anion Gap 11 5-14 MMOL/L Blood Urea Nitrogen 19 H 7-18 MG/DL Creatinine 0.76 0.60-1.30 MG/DL Estimat Glomerular Filtration Rate 84 BUN/Creatinine Ratio 25 Glucose Level 141 H 70-105 MG/DL Calcium Level 9.5 8.5-10.1 MG/DL Corrected Calcium 9.7 8.5-10.1 MG/DL Total Bilirubin 0.5 0.1-1.0 MG/DL Aspartate Amino Transf (AST/SGOT) 11 5-34 U/L Alanine Aminotransferase (ALT/SGPT) 9 0-55 U/L Alkaline Phosphatase 52 40-136 U/L Total Protein 6.4 6.4-8.2 GM/DL Albumin 3.7 3.2-4.5 GM/DL Lipase 18 8-78 U/L Urine Color YELLOW Urine Clarity CLEAR Urine pH 6.0 5-9 Urine Specific Gentry 1.020 1.016-1.022 Urine Protein NEGATIVE NEGATIVE Urine Glucose (UA) NEGATIVE NEGATIVE Urine Ketones NEGATIVE NEGATIVE Urine Nitrite NEGATIVE NEGATIVE Urine Bilirubin NEGATIVE NEGATIVE Urine Urobilinogen 0.2 < = 1.0 MG/DL Urine Leukocyte Esterase NEGATIVE NEGATIVE Urine RBC (Auto) NEGATIVE NEGATIVE Urine RBC RARE /HPF Urine WBC RARE /HPF Urine Squamous Epithelial Cells 0-2 /HPF Urine Crystals NONE /LPF Urine Bacteria NEGATIVE /HPF Urine Casts NONE /LPF Urine Mucus NEGATIVE /LPF Urine Culture Indicated NO My Orders Orders - MARTHA DEL RIO MD Ed Iv/Invasive Line Start (09/08/22 06:09) Cbc With Automated Diff (09/08/22 06:09) Comprehensive Metabolic Panel (09/08/22 06:09) Lipase (09/08/22 06:09) Ua Culture If Indicated (09/08/22 06:09) Abdomen/Kub 1view (09/08/22 06:09) Ns Iv 1000 Ml (Sodium Chloride 0.9%) (09/08/22 06:15) Morphine Injection (Morphine Injection (09/08/22 06:09) Ondansetron Injection (Zofran Injectio (09/08/22 06:15) Manual Differential (09/08/22 06:00) Ketorolac Injection (Toradol Injection) (09/08/22 07:00) Promethazine Injection (Phenergan Injec (09/08/22 07:00) Ct Abdomen/Pelvis W (09/08/22 06:54) Iohexol Injection (Omnipaque 350 Mg/Ml 1 (09/08/22 07:30) Sodium Chloride Flush (Catheter Flush Sy (09/08/22 07:30) Ns (Ivpb) (Sodium Chloride 0.9% Ivpb Bag (09/08/22 07:30) Piperacillin Sodium/Tazobactam (Zosyn Vi (09/08/22 08:30) Metronidazole 500mg/100ml Ivpb (Flagyl 5 (09/08/22 09:00) Medications Given in ED Current Medications Medications Dose Ordered Sig/Ade Route Start Time Stop Time Status Last Admin Dose Admin Iohexol 100 ml ONCE ONCE IV 09/08/22 07:30 09/08/22 07:31 DC 09/08/22 07:44 59 ML Ketorolac Tromethamine 15 mg ONCE ONCE IVP 09/08/22 07:00 09/08/22 07:01 DC 09/08/22 07:05 15 MG Metronidazole 100 ml @ 100 mls/hr ONCE ONCE IV 09/08/22 09:00 09/08/22 09:59 DC 09/08/22 10:17 100 MLS/HR Ondansetron HCl 8 mg ONCE ONCE IVP 09/08/22 06:15 09/08/22 06:16 DC 09/08/22 06:18 8 MG Piperacillin Sod/ Tazobactam Sod 4.5 gm/Sodium Chloride 100 ml @ 200 mls/hr ONCE ONCE IV 09/08/22 08:30 09/08/22 08:59 DC 09/08/22 08:38 200 MLS/HR Promethazine HCl 12.5 mg ONCE ONCE IVP 09/08/22 07:00 09/08/22 07:01 DC 09/08/22 07:05 12.5 MG Sodium Chloride 10 ml NEEDED PRN IV 09/08/22 07:30 09/08/22 07:44 10 ML Sodium Chloride 100 ml ONCE ONCE IV 09/08/22 07:30 09/08/22 07:31 DC 09/08/22 07:44 80 ML Vital Signs/I&O 09/08/22 05:50 Temp 36.5 Pulse 90 Resp 20 B/P (MAP) 166/99 (121) Pulse Ox 97 O2 Delivery Room Air Blood Pressure Mean: 121 Progress Progress Note #1: Time: 06:59 Progress Note PAtient states the pain medication helped very little Progress Note #2: Time: 08:[address] findings of hollow viscous perforation. "bad constipation" with a dilated cecum of 7.5cm. Small bowel wall thickening noted LUQ. Called and spoke with Dr Hsieh, he will be down to see. I discussed findings with patient and her sister at the bedside. Recc that they discuss options with Dr Hsieh. I am giving a dose of Zosyn in the meantime. Progress Note #3: Time: 08:[address] Hsieh will take to OR. He will take from ED - adding flagyl Diagnostic Imaging Diagonstic Imaging: Xray Comments [facility]. [place], [place] NAME: ANTOINENADIA Mara [facility] REC#: [id number] PT STATUS: REG ER : 1950 PHYSICIAN: MARTHA DEL RIO MD ADMIT DATE: 09/08/22/ER Signed Date of Exam:09/08/22 ABDOMEN/KUB 1VIEW REASON FOR EXAM: Diffuse abdominal pain. Worsening. COMPARISON: CT abdomen and pelvis on 09/03/2022. TECHNIQUE: frontal supine view of the abdomen FINDINGS: The bowel gas pattern is nondistended. No large collection of free intraperitoneal air is seen. A moderate amount of gas and fecal material are present in the colon. No abnormal extraosseous calcifications are present. There is increased density in the left upper quadrant, representing a mass within the left adrenal gland. No acute fracture is seen. IMPRESSION: 1. No evidence of bowel obstruction or large collection of free intraperitoneal air. 2. Moderate amount of stool in the colon. Dictated by: Dictated on workstation # [id number] Dict: 09/08/22 0744 Trans: 09/08/22 075 [facility] [id number] Interpreted by: ЕЛЕНА SMITH DO Electronically signed by: ЕЛЕНА SMITH DO 09/08/22 0753 Diagonstic Imaging: CT Comments [facility] [place], [place] NAME: NADIA SCHULTZ [facility] REC#: [id number] PT STATUS: REG ER : 1950 PHYSICIAN: MARTHA DEL RIO MD ADMIT DATE: 09/08/22/ER Draft Date of Exam:09/08/22 CT ABDOMEN/PELVIS W PROCEDURE: CT abdomen and pelvis with contrast. TECHNIQUE: Multiple contiguous axial images were obtained through the abdomen and pelvis after administration of intravenous contrast. Auto Exposure Controls were utilized during the CT exam to meet ALARA standards for radiation dose reduction. All CT scans use one or more of the following dose optimizing techniques: automated exposure control, MA and/or KvP adjustment based on patient size and exam type or iterative reconstruction. INDICATION: History of metastatic lung cancer with abnormal elevated and rising white blood cell count recently began chemotherapy. Compared with study 09/03/2022. FINDINGS: Multilobulated left lower lobe aggregate lung mass unchanged on the recent exam. There is partially visualized pericardial effusion decreased from the prior 5 mm now, previously 9 mm. No basilar pleural fluid. Since the previous exam, there has been development of pneumoperitoneum with the anti-dependent free air in the upper abdomen as well as tracking along the fissure of the ligament teres. Assuming no interval intraperitoneal intervention, this is presumed to reflect the sequelae of viscus perforation. Source of perforation, however cannot be identified. There is extensive constipation increased in the interim but no rectal or sigmoidal impaction. There is a small volume free fluid. There is thickening of left upper quadrant and left marie-abdominal small bowel loop segment measuring 11 mm wall thickness. This is new from prior. No mesenteric or portal venous air and no convincing evidence for intramural gas. There is atherosclerotic aortic vascular disease without significant stenosis. The celiac, superior mesenteric and inferior mesenteric arteries showed no identifiable thrombus. Large bilateral greater left adrenal metastatic lesions unchanged. Gallbladder unremarkable. No liver mass. The right renal cyst and some nonobstructive right renal cortical atrophy chronic. Unobstructed left kidney normal. Spleen negative. The patient's pancreas unremarkable. No significant small bowel or gastric dilatation. No findings to suggest generalized or segmental colitis. There is liquid and formed stool as well as a small amount of air within the cecum dilated to measure 7 cm. There is gradual transition caliber reduction in the distal left colon into the sigmoid with no abrupt transition zone. No visualized volvulus. Soft tissue masses in the ischiorectal fossa greater right unchanged. IMPRESSION: Interval development of pneumoperitoneum suspicious for interval hollow visceral perforation. While the proximal and mid colon is very dilated and stool containing no abrupt transition. There is thickening of proximal small bowel loop thacker. No convincing site for suspected visceral perforation is revealed at the study. There is a small volume free fluid without its loculation. There is no abscess. There is atherosclerotic disease without demonstrated mesenteric thrombus. Left lower lobe lung cancer, adrenal metastatic disease and ischiorectal soft tissue mass is again noted unchanged. Chronic changes to the unobstructed right kidney stable. Suspicion for hollow visceral perforation has been relayed by phone to the Emergency Room nurse at time of dictation. Dictated on workstation # [id number] Dict: 09/08/22802 Trans: 09/08/22820 [id number] Interpreted by: LEONARDO XAVIER Electronically signed by: Departure Communication (Admissions) Time/Spoke to Admitting Phy: 08:[address] Hsieh Impression Primary Impression: Abdominal pain Qualified Codes: R10.84 - Generalized abdominal pain Additional Impressions: Perforated abdominal viscus Metastatic lung cancer (metastasis from lung to other site) Qualified Codes: C34.90 - Malignant neoplasm of unspecified part of unspecified bronchus or lung Disposition: ADMITTED INPATIENT Condition: Stable Admissions Decision to Admit Reason: Admit from ER (General) Decision to Admit/Date: Sep 08, 2022 Time/Decision to Admit Time: 08:41 Departure-Patient Inst. Referrals: BAIRON HARRIS MD (PCP/Family) Primary Care Physician Copy Copies To 1: BAIRON HARRIS MD Copies To 2: CLOVIS HSIEH KATHRYN M MD Sep 08, 2022 06:16
[2022-09-08 06:21] LABS: ALBUMIN 3.7 GM/DL (3.2-4.5); POTASSIUM 4.1 MMOL/L (3.6-5.0)
[2022-09-08 06:22] LABS: CALCIUM 9.5 MG/DL (8.5-10.1)
[2022-09-08 06:24] LABS: TOTAL PROTEIN 6.4 GM/DL (6.4-8.2)
[2022-09-08 06:25] LABS: BILIRUBIN,URINE NEGATIVE (NEGATIVE); CLARITY,URINE CLEAR; COLOR,URINE YELLOW; GLUCOSE, URINE (UA) NEGATIVE (NEGATIVE); KETONES,URINE NEGATIVE (NEGATIVE); LEUKOCYTE ESTERASE ,URINE NEGATIVE (NEGATIVE); NITRITE,URINE NEGATIVE (NEGATIVE); PROTEIN,URINE NEGATIVE (NEGATIVE)
[2022-09-08 06:25] LABS: BILIRUBIN,TOTAL 0.5 MG/DL (0.1-1.0)
[2022-09-08 06:27] LABS: CREATININE SERUM 0.76 MG/DL (0.60-1.30)
[2022-09-08 06:34] LABS: BACTERIA,URINE NEGATIVE /HPF; RBC,URINE RARE /HPF; SQUAMOUS EPITHELIAL CELL,UR 0-2 /HPF; WBC,URINE RARE /HPF
[2022-09-08 06:38] LABS: ANISOCYTOSIS SLIGHT; BAND NEUTROPHILS 3 %; LYMPHOCYTES % (MANUAL) 3 %; MICROCYTOSIS SLIGHT; MONOCYTES % (MANUAL) 1 %; NEUTROPHILS % (MANUAL) 93 %
[2022-09-08 06:39] LABS: HYPOCHROMASIA SLIGHT
[2022-09-08] MEDS ORDERED: PROMETHAZINE INJ 25 MG/ML (PHENERGAN) AMP IVP ONE (07:00)
[2022-09-08] MEDS ORDERED: KETOROLAC 30 MG/ML VIAL IVP ONE (07:00)
[2022-09-08] MEDS ORDERED: CATHETER FLUSH 10 ML SYR IV PRN (07:30)
[2022-09-08] MEDS ORDERED: IOHEXOL 350 MG/ML 100 ML (OMNIPAQUE 350) VIAL IV ONE (07:30)
[2022-09-08] MEDS ORDERED: NS 100 ML (IVPB) BAG IV ONE (07:30)
--- NOTE | 2022-09-08 07:48 | Diagnostic Imaging Report ---
REASON FOR EXAM: Diffuse abdominal pain. Worsening. COMPARISON: CT abdomen and pelvis on 09/03/2022. TECHNIQUE: frontal supine view of the abdomen FINDINGS: The bowel gas pattern is nondistended. No large collection of free intraperitoneal air is seen. A moderate amount of gas and fecal material are present in the colon. No abnormal extraosseous calcifications are present. There is increased density in the left upper quadrant, representing a mass within the left adrenal gland. No acute fracture is seen. IMPRESSION: 1. No evidence of bowel obstruction or large collection of free intraperitoneal air. 2. Moderate amount of stool in the colon. Dictated by: Dictated on workstation # [id number]
--- NOTE | 2022-09-08 08:21 | Diagnostic Imaging Report ---
PROCEDURE: CT abdomen and pelvis with contrast. TECHNIQUE: Multiple contiguous axial images were obtained through the abdomen and pelvis after administration of intravenous contrast. Auto Exposure Controls were utilized during the CT exam to meet ALARA standards for radiation dose reduction. All CT scans use one or more of the following dose optimizing techniques: automated exposure control, MA and/or KvP adjustment based on patient size and exam type or iterative reconstruction. INDICATION: History of metastatic lung cancer with abnormal elevated and rising white blood cell count recently began chemotherapy. Compared with study 09/03/2022. FINDINGS: Multilobulated left lower lobe aggregate lung mass unchanged on the recent exam. There is partially visualized pericardial effusion decreased from the prior 5 mm now, previously 9 mm. No basilar pleural fluid. Since the previous exam, there has been development of pneumoperitoneum with the anti-dependent free air in the upper abdomen as well as tracking along the fissure of the ligament teres. Assuming no interval intraperitoneal intervention, this is presumed to reflect the sequelae of viscus perforation. Source of perforation, however cannot be identified. There is extensive constipation increased in the interim but no rectal or sigmoidal impaction. There is a small volume free fluid. There is thickening of left upper quadrant and left marie-abdominal small bowel loop segment measuring 11 mm wall thickness. This is new from prior. No mesenteric or portal venous air and no convincing evidence for intramural gas. There is atherosclerotic aortic vascular disease without significant stenosis. The celiac, superior mesenteric and inferior mesenteric arteries showed no identifiable thrombus. Large bilateral greater left adrenal metastatic lesions unchanged. Gallbladder unremarkable. No liver mass. The right renal cyst and some nonobstructive right renal cortical atrophy chronic. Unobstructed left kidney normal. Spleen negative. The patient's pancreas unremarkable. No significant small bowel or gastric dilatation. No findings to suggest generalized or segmental colitis. There is liquid and formed stool as well as a small amount of air within the cecum dilated to measure 7 cm. There is gradual transition caliber reduction in the distal left colon into the sigmoid with no abrupt transition zone. No visualized volvulus. Soft tissue masses in the ischiorectal fossa greater right unchanged. IMPRESSION: Interval development of pneumoperitoneum suspicious for interval hollow visceral perforation. While the proximal and mid colon is very dilated and stool containing no abrupt transition. There is thickening of proximal small bowel loop thacker. No convincing site for suspected visceral perforation is revealed at the study. There is a small volume free fluid without its loculation. There is no abscess. There is atherosclerotic disease without demonstrated mesenteric thrombus. Left lower lobe lung cancer, adrenal metastatic disease and ischiorectal soft tissue mass is again noted unchanged. Chronic changes to the unobstructed right kidney stable. Suspicion for hollow visceral perforation has been relayed by phone to the Emergency Room nurse at time of dictation. Dictated by: Dictated on workstation # [id number]
[2022-09-08] MEDS ORDERED: PIPERACILLIN SODIUM/TAZOBACTAM 4.5 GM in NS (IVPB) 100 ML IV ONE (08:30)
--- NOTE | 2022-09-08 08:51 | Consultation - Surgery ---
JOCYHARSHA T 09/08/22 0851: History of Present Illness History of Present Illness Patient Consulted On(marleny/time) 09/08/22 08:42 Date Seen by Provider: Sep 08, 2022 Time Seen by Provider: 08:50 Reason for Visit: Abdominal Pain History of Present Illness 72 F arrived via EMS for abdominal pain. Pain started about 1wk ago and worsened overnight. Pt rates pain 10/10 that is sharp over the mid-epigastric region and radiates diffusely across entire abdomen. Pt took morphine at 2300 last night and oxycodone ats [id number] this morning with little to no relief. Pain worsens with movement and deep breaths. Denies any chest pain, SOB. States she is nauseous but no vomiting and reports some constipation with no BM since last Sunday. Pt started chemo therapy yesterday for metastatic lung cancer (lymphoma) and stated no complaints with treatment and adrenal tumor. Per med rec, pt was admitted last week for abd pain and ct showed no changes in adrenal mass with finding consistent with enterocolitis. Pt last ate around 20:00 last night and has had nothing to eat today. No other complaints. CT abd/pelvis 09/08 - Interval development of pneumoperitoneum suspicious for interval hollow visceral perforation. There is thickening of proximal small bowel loop thacker. There is a small volume free fluid without its loculation. There is no abscess. There is atherosclerotic disease without demonstrated mesenteric thrombus. Left lower lobe tatyana cancer, adrenal metastatic disease and ischiorectal soft tissue mass is again noted unchanged. Chronic changes to the unobstructed right kidney stable. Chest x-ray 09/08 - No evidence of bowel obstruction or large collection of free intraperitoneal air.Moderate amount of stool in the colon. Allergies and Home Medications Allergies Coded Allergies: fentanyl (Verified Allergy, Intermediate, 09/03/22) hallucinations codeine (Verified Allergy, Unknown, ITCH/HIVES, 09/03/22) Patient Home Medication List Home Medication List Reviewed: Yes Aspirin (Aspirin EC) 81 Mg Tablet.dr, 81 MG PO DAILY, (Reported) Entered as Reported by: KALPESH REYES on 08/03/22 1603 Fluticasone/Umeclidin/Vilanter (Trelegy Ellipta 100-62.5-25) 100-62.5 Blst.w.dev, 1 EACH IH UD, (Reported) Entered as Reported by: BON KNOWLES on 08/23/22 1526 Folic Acid (Folic Acid) 1 Mg Tablet, 1 MG PO DAILY, (Reported) Entered as Reported by: CHRISTIAN MUSE on 09/04/22 1331 Lisinopril (Lisinopril) 40 Mg Tablet, 20 MG PO DAILY, (Reported) Entered as Reported by: CHRISTIAN MUSE on 09/04/22 1331 Metoprolol Tartrate (Metoprolol Tartrate) 100 Mg Tablet, 100 MG PO BID, (Reported) Entered as Reported by: BON KNOWLES on 08/23/22 1526 Oxycodone HCl (Oxycodone HCl) 5 Mg Tablet, 5 MG PO Q4H PRN for PAIN-SEVERE (8- 10), (Reported) Entered as Reported by: CHRISTIAN MUSE on 09/04/22 1329 Promethazine HCl (Promethazine Tablet) 25 Mg Tablet, 25 MG PO Q6H PRN for NAUSEA/VOMITING, (Reported) Entered as Reported by: CHRISTIAN MUSE on 09/04/22 1333 Rosuvastatin Calcium (Rosuvastatin Calcium) 20 Mg Tablet, 20 MG PO DAILY, (Reported) Entered as Reported by: KALPESH REYES on 08/03/22 1603 Past Kfsaojk-Gvthfr-Ejzcgm Hx Patient Social History Smoking Status: Current Everyday Smoker Type Used: Cigarettes Recent Hopitalizations: Yes (07/2022 DISCOVERED CANCER) Alcohol Use?: No Have you traveled recently?: No Immunizations Up To Date Tetanus Booster (TDap): Unknown Date of Pneumonia Vaccine: Jul 25, 2022 Seasonal Allergies Seasonal Allergies: No Surgeries History of Surgeries: Yes (LIPOMA BETWEEN LEGS) Surgeries: Hysterectomy Respiratory History of Respiratory Disorde: Yes Respiratory Disorders: Pneumonia, COPD Cardiovascular History of Cardiac Disorders: Yes Cardiac Disorders: 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, 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 History of 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 Disord: 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 Genitourinary History of Genitourinary Disor: Yes (NEPHROSTOMY TUBE-KIDNEY STRETCHED) Genitourinary Disorders: Kidney Stones, UTI-Chronic Gastrointestinal History of Gastrointestinal Di: No Musculoskeletal History of Musculoskeletal Dis: No Musculoskeletal Disorders: Chronic Back Pain Endocrine History of Endocrine Disorders: No HEENT History of HEENT Disorders: No Cancer History of Cancer: Yes Cancer: Lung, Lymphoma Psychosocial History of Psychiatric Problem: No Integumentary History of Skin or Integumenta: No Blood Transfusions History of Blood Disorders: No Family Medical History Significant Family History: No Pertinent Family Hx Review of Systems-General Constitutional: No chills, No fever EENTM: No hearing loss, No vision loss Respiratory: No cough, No dyspnea on exertion Gastrointestinal: RLQ (pain 10/10), abdominal pain (diffuse), constipation, nausea; No vomiting Genitourinary: No decreased output, No discharge, No dysuria, No frequency Musculoskeletal: No joint pain, No muscle pain Skin: No change in color, No change in hair/nails Psychiatric/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: Anxiety Physical Exam-General Problems Physical Exam Vital Signs Vital Signs - First Documented 09/08/22 05:50 Temp 36.5 Pulse 90 Resp 20 B/P (MAP) 166/99 (121) Pulse Ox 97 O2 Delivery Room Air Capillary Refill : Less Than 3 Seconds General Appearance: cachetic, thin, other (ill apearing ) Eyes: Bilateral Eye EOMI HEENT: PERRL/EOMI Neck: supple, normal inspection Respiratory: no respiratory distress, no accessory muscle use Cardiovascular: regular rate, rhythm, no murmur Peripheral Pulses: 3+ Dorsalis Pedis (R), 3+ Left Dors-Pedis (L), 3+ Radial Pulses (R), 3+ Radial Pulses (L) Gastrointestinal: normal bowel sounds, no organomegaly, no pulsatile mass, tenderness (diffuse) Back: no CVA tenderness, no vertebral tenderness Extremities: non-tender, no calf tenderness Neurologic/Psychiatric: alert, oriented x 3, other (anxious) Skin: normal color, warm/dry Data Review Labs Laboratory Tests 09/08/22 06:00: White Blood Count 20.8H, Red Blood Count 3.44L, Hemoglobin 8.9L, Hematocrit 29L, Mean Corpuscular Volume 84, Mean Corpuscular Hemoglobin 26, Mean Corpuscular Hemoglobin Concent 31L, Red Cell Distribution Width 14.2, Platelet Count 331, Mean Platelet Volume 8.7L, Immature Granulocyte % (Auto) 1, Neutrophils (%) (Auto) 94H, Lymphocytes (%) (Auto) 3L, Monocytes (%) (Auto) 2, Eosinophils (%) (Auto) 0, Basophils (%) (Auto) 0, Neutrophils # (Auto) 19.6H, Lymphocytes # (Auto) 0.7L, Monocytes # (Auto) 0.3, Eosinophils # (Auto) 0.0, Basophils # (Auto) 0.0, Immature Granulocyte # (Auto) 0.1, Neutrophils % (Manual) 93, Lymphocytes % (Manual) 3, Monocytes % (Manual) 1, Band Neutrophils 3, Hypochromasia SLIGHT, Anisocytosis SLIGHT, Microcytosis SLIGHT, Sodium Level 132L, Potassium Level 4.1, Chloride Level 99, Carbon Dioxide Level 22, Anion Gap 11, Blood Urea Nitrogen 19H, Creatinine 0.76, Estimat Glomerular Filtration Rate 84, BUN/Creatinine Ratio 25, Glucose Level 141H, Calcium Level 9.5, Corrected Calcium 9.7, Total Bilirubin 0.5, Aspartate Amino Transf (AST/SGOT) 11, Alanine Aminotransferase (ALT/SGPT) 9, Alkaline Phosphatase 52, Total Protein 6.4, Albumin 3.7, Lipase 18 09/08/22 06:20: Urine Color YELLOW, Urine Clarity CLEAR, Urine pH 6.0, Urine Specific [place] 1.020, Urine Protein NEGATIVE, Urine Glucose (UA) NEGATIVE, Urine Ketones NEGATIVE, Urine Nitrite NEGATIVE, Urine Bilirubin NEGATIVE, Urine Urobilinogen 0.2, Urine Leukocyte Esterase NEGATIVE, Urine RBC (Auto) NEGATIVE, Urine RBC RARE, Urine WBC RARE, Urine Squamous Epithelial Cells 0-2, Urine Crystals NONE, Urine Bacteria NEGATIVE, Urine Casts NONE, Urine Mucus NEGATIVE, Urine Culture Indicated NO Assessment/Plan Assessment/Plan Assessment/Plan pneumoperitenium nausea abdominal pain NPO Start zoysn and flagyl therapy start zofran increase pain control possible ex-lap to find source of free air Went over risks and benefits of procedure to pt and family member and pt understands and consents to ex-lap Pt has full decision making capacity and requests full code throughout procedure and then DNR post-surgery. CLOVIS HSIEH DO 09/08/22 0945: History of Present Illness History of Present Illness History of Present Illness CC: severe abdominal pain. 72 year old female with abdominal pain about 1 week. Wasn't too bad, but last night became severe 10/10 pain. Now pain is sharp and all over abdomen. Had chemo yesterday for metastatic lung cancer. Patient states movement makes worse. Holding still makes more tolerable. Had had issues with constipation. Had ct scan showing: Interval development of pneumoperitoneum suspicious for interval hollow visceral perforation. While the proximal and mid colon is very dilated and stool containing no abrupt transition. There is thickening of proximal small bowel loop thacker. No convincing site for suspected visceral perforation is revealed at the study. There is a small volume free fluid without its loculation. There is no abscess. There is atherosclerotic disease without demonstrated mesenteric thrombus. Left lower lobe lung cancer, adrenal metastatic disease and ischiorectal soft tissue mass is again noted unchanged. Chronic changes to the unobstructed right kidney stable. Allergies and Home Medications Allergies Coded Allergies: fentanyl (Verified Allergy, Intermediate, 09/03/22) hallucinations codeine (Verified Allergy, Unknown, ITCH/HIVES, 09/03/22) Patient Home Medication List Home Medication List Reviewed: Yes Aspirin (Aspirin EC) 81 Mg Tablet.dr, 81 MG PO DAILY, (Reported) Entered as Reported by: KALPESH REYES on 08/03/22 1603 Fluticasone/Umeclidin/Vilanter (Trelegy Ellipta 100-62.5-25) 100-62.5 Blst.w.dev, 1 EACH IH UD, (Reported) Entered as Reported by: BON KNOWLES on 08/23/22 1526 Folic Acid (Folic Acid) 1 Mg Tablet, 1 MG PO DAILY, (Reported) Entered as Reported by: CHRISTIAN MUSE on 09/04/22 1331 Lisinopril (Lisinopril) 40 Mg Tablet, 20 MG PO DAILY, (Reported) Entered as Reported by: CHRISTIAN MUSE on 09/04/22 1331 Metoprolol Tartrate (Metoprolol Tartrate) 100 Mg Tablet, 100 MG PO BID, (Reported) Entered as Reported by: BON KNOWLES on 08/23/22 1526 Oxycodone HCl (Oxycodone HCl) 5 Mg Tablet, 5 MG PO Q4H PRN for PAIN-SEVERE (8- 10), (Reported) Entered as Reported by: CHRISTIAN MUSE on 09/04/22 1329 Promethazine HCl (Promethazine Tablet) 25 Mg Tablet, 25 MG PO Q6H PRN for NAUSEA/VOMITING, (Reported) Entered as Reported by: CHRISTIAN MUSE on 09/04/22 1333 Rosuvastatin Calcium (Rosuvastatin Calcium) 20 Mg Tablet, 20 MG PO DAILY, (Repo rted) Entered as Reported by: KALPESH REYES on 08/03/22 2240 Past Vlvgpuc-Slfsyi-Akzrwj Hx Surgeries History of Surgeries: Yes (port) Reviewed Nursing Assessment Reviewed/Agree w Nursing PMH: Yes Family Medical History Significant Family History: No Pertinent Family Hx Review of Systems-General Constitutional: No chills, No fever EENTM: No hearing loss, No vision loss Respiratory: No cough, No dyspnea on exertion Gastrointestinal: abdominal pain (diffuse), constipation, nausea; No vomiting Genitourinary: No decreased output, No discharge, No dysuria, No frequency Musculoskeletal: No joint pain, No muscle pain Skin: No change in color, No change in hair/nails Psychiatric/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: Anxiety; Denies Depressed, Denies Emotional Problems All Other Systems Reviewed Negative Unless Noted: Yes (Negative excepted noted.) Physical Exam-General Problems Physical Exam General Appearance: cachetic, thin, other (ill apearing ) HEENT: PERRL/EOMI, normal ENT inspection Neck: non-tender, supple, normal inspection Respiratory: chest non-tender, no respiratory distress, no accessory muscle use Cardiovascular: regular rate, rhythm, no JVD Gastrointestinal: non tender, tenderness (pertioneal diffusely) Rectal: deferred Back: no CVA tenderness, no vertebral tenderness Extremities: non-tender, no calf tenderness Neurologic/Psychiatric: alert, oriented x 3, other (anxious) Skin: normal color, warm/dry Lymphatic: no adenopathy Assessment/Plan Assessment/Plan Assessment/Plan pneumoperitenium nausea abdominal pain metastatic lung cancer NPO Start zoysn and flagyl therapy start zofran increase pain control discussed exploratory laparotomy all other indicated procedures with patient and family, they understand and wish to proceed. understand possible results and possible ostomy, need for intubation and more. Pt has full decision making capacity and requests full code throughout procedure and then DNR post-surgery. Supervisory-Addendum Brief Verification & Attestation Participated in pt care: history, MDM, physical Personally performed: exam, history, MDM, supervision of care Care discussed with: Medical Student Procedures: n/a Results interpretation: Verified all documentation Verification and Attestation of Medical Student E/M Service A medical student performed and documented this service in my presence. I reviewed and verified all information documented by the medical student and made modifications to such information, when appropriate. I personally performed the physical exam and medical decision making. Clovis Hsieh, Sep 08, 2022,09:51 HARSHA SANDRA Sep 08, 2022 08:51 CLOVIS HSIEH DO Sep 08, 2022 09:45
[2022-09-08] MEDS ORDERED: metroNIDAZOLE 500MG/100ML IVPB 100 ML IV ONE (09:00)
[2022-09-08] MEDS ORDERED: GLYCOPYRROLATE 0.2 MG/ML (ROBINUL) 2 ML VIAL ONE (10:12)
[2022-09-08] MEDS ORDERED: LIDOCAINE PF 2% 5 ML (XYLOCAINE) VIAL ONE (10:12)
[2022-09-08] MEDS ORDERED: ROCURONIUM 10 MG/ML 5 ML SYRINGE IV ONE (10:12)
[2022-09-08] MEDS ORDERED: fentaNYL INJ 100 MCG/2 ML AMP ONE (10:12)
[2022-09-08] MEDS ORDERED: proPOfol 200 MG/20 ML (DIPRIVAN) VIAL IV ONE (10:12)
[2022-09-08] MEDS ORDERED: MIDAZOLAM 2 MG/2 ML (VERSED) VIAL ONE (10:12)
[2022-09-08] MEDS ORDERED: ONDANSETRON 4 MG/2 ML (SDV) Z0FRAN ONE (10:12)
[2022-09-08] MEDS ORDERED: NEOSTIGMINE (BLOXIVERZ ) 1 MG/1ML 10 ML VIAL ONE (10:12)
[2022-09-08] MEDS ORDERED: HYDROmorphone 2 MG/ML VIAL (DILAUDID) ONE (10:17)
[2022-09-08] MEDS: LACTATED RINGERS 1,000 ML IV PRN ×2 (10:45→13:13)
[2022-09-08] MEDS ORDERED: PHENYLEPHRINE 100 MCG/ML 10 ML (ANESTHESIA) SYR ONE (11:17)
[2022-09-08] MEDS ORDERED: ROPIVACAINE 5MG/ML 30ML VIAL ONE (12:15)
[2022-09-08 12:21] VITALS: BP 97/62
[2022-09-08 12:30] VITALS: BP 98/65
--- NOTE | 2022-09-08 12:30 | Progress Note-Post Operative ---
Post-Operative Progess Note Surgeon (s)/Veterans Services Specialist (s) Surgeon CLOVIS HSIEH DO Veterans Services Specialist: Dr. Esqueda Pre-Operative Diagnosis pneumoperitoneum Post-Operative Diagnosis small bowel masses and small bowel perforation Procedure & Operative Findings Date of Procedure 09/08/22 Procedure Performed/Findings exploratory laparotomy c small bowel resection of ileum, small bowel resection jejunum. Anesthesia Type general Estimated Blood Loss Estimated blood loss (mL): minimal Specimens/Packing Specimens Removed jejunum, ileum CLOVIS HSIEH DO Sep 08, 2022 12:30
[2022-09-08] MEDS ORDERED: SEVOFLURANE (ULTANE) 15 ML INHAL SOLN ONE (12:32)
[2022-09-08 12:40] VITALS: BP 88/51
[2022-09-08] MEDS ORDERED: HYDROmorphone 2 MG/ML VIAL (DILAUDID) IV ONE (12:45)
[2022-09-08] MEDS ORDERED: ONDANSETRON 4 MG/2 ML (SDV) Z0FRAN IVP PRN (12:45)
[2022-09-08 12:50] VITALS: BP 85/56
[2022-09-08 13:00] VITALS: BP 87/58
[2022-09-08 13:10] VITALS: BP 86/57
--- NOTE | 2022-09-08 14:10 | Tele-ICU Progress Note ---
Subjective Date Seen by a Provider: Sep 08, 2022 Subjective/Events-last exam This virtual visit was conducted using real time audio/video. Thank you for asking us to see this patient for respiratory insufficiency due to COPD. Pt admitted with SB perforation and is S/P ex. lap PMH: Lung CA w bone, adrenal mets (1st chemo 09/07), COPD, Htn., HL, nephrostomy, renal stones. SH: smoking history: current FH: Non-contributory as in HPI. PE: Appears pale and chronically ill. VSS. O2 sat 98% on 2 LPM NC HEENT: No obvious masses, adenopathy or JVD. Chest: clear to auscultation. CV: RRR S1 S2 No murmur or added sounds. Abd: Non-tender. Bowel sounds Y. : Unremarkable. Vo Y. 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 No obvious focal findings. Extremities: No edema. Capillary refill < 3 seconds. Skin: unremarkable. Results: Elevated WCC 20.8, BUN 19. Decreased Hb 8.9, Na 132. CXR: Not done. Available chart/ vitals / labs / images reviewed. Video assessment done using teleICU camera, rest of exam as per RN. A/P: Respiratory insufficiency: Continue present management with O2. Duonebs PRN added. Monitor for increasing oxygenation needs and/or need for intubation. Critical Care: critically ill patient. Cont. IVF, abx, Zofran. Discussed with RN Shelly. Asked RN to reach out to eICU if any questions or concerns later. Time spent with patient/coordination of care with other health professionals (mins): 33 Sepsis Event Evaluation Height, Weight, BMI Height: '" Weight: lbs. oz. kg; 18.51 BMI Method: Exam Exam Patient acknowledged, consented, and participated in this virtual visit which was conducted using real time audio/video Vital Signs Date Time Temp Pulse Resp B/P (MAP) Pulse Ox O2 Delivery O2 Flow Rate FiO2 09/08/22 13:20 Nasal Cannula 2.00 09/08/22 13:10 37.4 20 86/57 (67) 94 Nasal Cannula 2.00 09/08/22 13:05 OxyMask 2.00 09/08/22 13:00 20 87/58 (68) 96 OxyMask 1.00 09/08/22 12:51 OxyMask 2.00 10/21/22 12:50 14 85/56 (66) 98 OxyMask 2.00 09/08/22 12:40 15 88/51 (63) 98 OxyMask 3.00 09/08/22 12:36 OxyMask 4.00 09/08/22 12:30 14 98/65 (76) 99 OxyMask 4.00 09/08/22 12:21 OxyMask 6.00 09/08/22 12:21 37.5 16 97/62 (74) 99 OxyMask 6.00 09/08/22 10:40 87 16 106/70 95 Nasal Cannula 1.00 09/08/22 05:50 36.5 90 20 166/99 (121) 97 Room Air Height & Weight Height: '" Weight: lbs. oz. kg; 18.51 BMI Method: General Appearance: Chronically ill, Other Capillary Refill: Less Than 3 Seconds Peripheral Pulses: 1+ Dorsalis Pedis (R); 3+ Dorsalis Pedis (R); 1+ Left Dors- Pedis (L) (Pale); 3+ Left Dors-Pedis (L) (Pale), 3+ Radial Pulses (R), 3+ Radial Pulses (L) Gastrointestinal: non tender, tenderness (pertioneal diffusely) Results Lab Laboratory Tests 09/08/22 06:00 Assessment/Plan Assessment/Plan See free text. Critical Care: Critically Ill Patient VINOD KAUR MD Sep 08, 2022 14:10
[2022-09-08] MEDS: LACTATED RINGERS 1,000 ML IV SCH ×2 (14:35→23:08)
[2022-09-08] MEDS: PIPERACILLIN SODIUM/TAZOBACTAM 4.5 GM in NS (IVPB) 100 ML IV SCH ×2 (14:36→22:47)
[2022-09-08] MEDS: morphine INJ 4 MG/ML 1 ML (VIAL/SYRINGE) IVP PRN ×4 (15:09→22:47)
[2022-09-08] MEDS: metroNIDAZOLE 500MG/100ML IVPB 100 ML IV SCH (17:16)
--- NOTE | 2022-09-08 21:47 | OPERATIVE REPORT ---
DATE OF SERVICE: 09/08/2022 PREOPERATIVE DIAGNOSIS: Pneumoperitoneum. POSTOPERATIVE DIAGNOSES: Small bowel masses with small bowel perforation. PROCEDURE: Exploratory laparotomy, small bowel resection of the ileum and small bowel resection of the jejunum. SURGEON: Clovis Banerjee DO FACILITIES MAINTENANCE ASSISTANT: Dr. Esqueda, who assisted in retraction, dissection and closure. ANESTHESIA: General. ESTIMATED BLOOD LOSS: Minimal. COMPLICATIONS: None. INDICATIONS: The patient is a 72-year-old female with metastatic lung disease. She presented to Emergency Department with severe abdominal pain, pneumoperitoneum. She was discussed risks and benefits of procedure and wished to proceed. Consent was signed in the chart. DESCRIPTION OF PROCEDURE: The patient was taken to the operating suite. She was prepped and draped in sterile fashion. Timeout was performed. Midline incision was made. Esophagus vegetable particulate within the abdomen. This was suctioned. The colon was distended along the right colon, transverse colon, a slightly loose stool burden as well. Lots of irrigation was used to irrigate and suction. Small bowel was then ran from the ileocecal valve, noting in the ileum a small bowel mass and then continued to run to the ligament of Treitz near within approximately 8 inches of ligament of Treitz, there was a bowel perforation and a tumor present along with the second tumor palpable within the lumen. The small bowel was then dissected around it for a ccmh-qm-ldcs anastomosis to be created. A cautery was used to make a small hole in the small bowel for both limbs and a swsm-[id number] [place] two-step stapler was used to recreate anastomosis and divide the small bowel perforation and masses. LigaSure was used to divide the mesentery. The mesenteric defect was then closed using a 3-0 Vicryl. The specimen was handed off and this was where the jejunal portion. Followup was then ran back towards the ileocecal valve when the mass and the ileum was located. Distal and proximal to this portion of bowel was dissected around and a [place] two-step anastomosis was created, dividing the bowel and then using LigaSure, the mesentery was divided and specimen was handed off. The mesenteric defect was closed using 3-0 Vicryl. In both locations, crotch stitches were placed with 3-0 Vicryl. No other pathology noted on exam. The abdomen was again irrigated with copious amounts of irrigation and suction. The nasogastric tube was inserted and it was in the stomach. The fascia was then closed using 1-0 looped PDS. Skin was then closed with tiffany after the wound was irrigated with copious amounts of irrigation. The patient was taken to the recovery room in stable condition. Job ID: [id number] DocumentID: [id number] Dictated Date: 09/08/2022 12:58:03 Flight Operations Coordinator Date: 09/08/2022 21:46:40 Dictated By: CLOVIS BANERJEE DO
[2022-09-09] MEDS: morphine INJ 4 MG/ML 1 ML (VIAL/SYRINGE) IVP PRN ×4 (01:22→07:41)
[2022-09-09] MEDS: metroNIDAZOLE 500MG/100ML IVPB 100 ML IV SCH ×3 (01:24→18:30)
[2022-09-09] MEDS: LACTATED RINGERS 1,000 ML IV SCH ×3 (01:24→22:34)
[2022-09-09 05:29] LABS: BASOPHILS % (AUTO) 0 % (0-10); EOSINOPHILS % (AUTO) 0 % (0-10); HEMATOCRIT 24 % (35-52); HEMOGLOBIN 7.2 g/dL (11.5-16.0); LYMPHOCYTES # (AUTO) 0.4 10^3/uL (1.0-4.0); LYMPHOCYTES % (AUTO) 4 % (12-44); MEAN CORPUSCULAR HEMOGLOBIN 26 pg (25-34); MEAN CORPUSCULAR HGB CONC 30 g/dL (32-36); MEAN CORPUSCULAR VOLUME 85 fL (80-99); MEAN PLATELET VOLUME 8.7 fL (9.0-12.2); MONOCYTES % (AUTO) 0 % (0-12); NEUTROPHILS # (AUTO) 9.2 10^3/uL (1.8-7.8); NEUTROPHILS % (AUTO) 96 % (42-75); PLATELET COUNT 189 10^3/uL (130-400); WHITE BLOOD COUNT 9.6 10^3/uL (4.3-11.0)
[2022-09-09] MEDS: PIPERACILLIN SODIUM/TAZOBACTAM 4.5 GM in NS (IVPB) 100 ML IV SCH ×3 (05:33→22:33)
--- NOTE | 2022-09-09 05:49 | Consultation - Hospitalist ---
HPI History of Present Illness: HPI/Chief Complaint Chief complaint: Medical consultation following small bowel perforation HPI: This is a 72-year-old female who appears to be very chronically debilitated and frail is status post exploratory laparotomy due to small bowel perforation. Dr. Banerjee completed the surgery in an uncomplicated manner. 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 Sister at the bedside. Source: family, RN/MD, old records Exam Limitations: clinical condition Date Seen 09/09/22 Attending Physician Oscar Garnett MD PCP Admitting Physician: Attending Physician: Raciel Banerjee DO Referring Physician Date of Admission Home Medications & Allergies Home Medications Reviewed patient Home Medication Reconciliation performed by pharmacy medication reconciliations thermal technician and/or nursing. Patients Allergies have been reviewed. Allergies Allergies Coded Allergies fentanyl (Verified Allergy, Intermediate, 09/03/22) hallucinations codeine (Verified Allergy, Unknown, ITCH/HIVES, 09/03/22) Past Wonmbwp-Jhwrvl-Mxtnpd Hx Patient Social History Marrital Status: single Employed/Student: retired Tobacco Use?: Yes Tobacco type used: Cigarettes Smoking Status: Current Everyday Smoker Use of E-Cig and/or Vaping dev: No Substance use?: No Alcohol Use?: No Pt feels they are or have been: No Immunizations Up To Date First/Initial COVID19 Vaccinat: 12/12/2020 [employer] Second COVID19 Vaccination Noe: 01/07/2021 [employer] Tetanus Booster (TDap): Unknown Hepatitis A: No Hepatitis B: No Date of Pneumonia Vaccine: Jul 25, 2022 Seasonal Allergies Seasonal Allergies: No Current Status Advance Directives: Unable to obtain Communicates: Verbally Primary Language: Martiniquais Preferred Spoken Language: Martiniquais Is interpretation needed?: Unable to obtain Implanted or Applied Medical D: None Past Medical History Surgeries: Hysterectomy Pneumonia, COPD Currently Using CPAP: No Currently Using BIPAP: No 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, 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 oz. kg; 23.73 BMI Method: General Appearance: Chronically ill, Thin, Other Eyes: Bilateral Eye EOMI HEENT: PERRL/EOMI, Normal ENT Inspection, Pharynx Normal Neck: Full Range of Motion, Normal Inspection, Non Tender, Supple, Carotid Bruit Respiratory: Chest Non Tender, Lungs Clear, Normal Breath Sounds, No Accessory Muscle Use, No Respiratory Distress Cardiovascular: Regular Rate, Rhythm, No Edema, No Gallop, No JVD, No Murmur, Normal Peripheral Pulses Gastrointestinal: Normal Bowel Sounds, No Organomegaly, No Pulsatile Mass, Non Tender, Soft Back: Normal Inspection, No CVA Tenderness, No Vertebral Tenderness Extremity: Normal Capillary Refill, Normal Inspection, Non Tender, No Calf Tenderness, No Pedal Edema Skin: Normal Color, Warm/Dry Lymphatic: No Adenopathy Results Results/Procedures Labs Laboratory Tests 09/08/22 06:00 09/09/22 05:20 Patient resulted labs reviewed. Assessment/Plan Assessment and Plan Assess & Plan/Chief Complaint Assessment: Small bowel perforation status post exploratory surgery postop day #1 Frail status History of lung cancer Lymphoma Leukocytosis Anemia Plan: Monitor in ICU Frail status Critical Care Critically Ill Patient DUKE JOHNSON DO Sep 09, 2022 05:49
[2022-09-09 05:50] LABS: POTASSIUM 4.5 MMOL/L (3.6-5.0)
[2022-09-09 05:55] LABS: PHOSPHORUS 3.8 MG/DL (2.3-4.7)
[2022-09-09 05:56] LABS: CREATININE SERUM 0.84 MG/DL (0.60-1.30)
[2022-09-09 05:58] LABS: MAGNESIUM 2.3 MG/DL (1.6-2.4)
[2022-09-09 06:00] LABS: BAND NEUTROPHILS 32 %; ELLIPT/OVALOCYTES SLIGHT; LYMPHOCYTES % (MANUAL) 5 %; METAMYELOCYTES % 5 %; MONOCYTES % (MANUAL) 2 %; NEUTROPHILS % (MANUAL) 56 %; PLATELET ESTIMATE NORMAL; POIKILOCYTOSIS SLIGHT
[2022-09-09] MEDS ORDERED: morphine INJ 4 MG/ML 1 ML (VIAL/SYRINGE) IVP PRN (08:15)
[2022-09-09] MEDS ORDERED: NS IV 1000 ML 1,000 ML IV SCH (08:45)
[2022-09-09] MEDS: morphine PCA 100 MG/100 ML BAG IV PRN (08:54)
--- NOTE | 2022-09-09 09:14 | Tele-ICU Progress Note ---
Subjective Date Seen by a Provider: Sep 09, 2022 Subjective/Events-last exam This virtual visit was conducted using real time audio/video. Thank you for asking us to see this patient for respiratory insufficiency due to COPD. Pt admitted with SB perforation and is S/P ex. lap. PMH: Lung CA w bone, adrenal mets (1st chemo 09/07), COPD/home O2 PRN, Htn., HL, nephrostomy, renal stones. SH: smoking history: current PE: Appears pale and chronically ill. VSS. O2 sat 94% on 2 LPM NC HEENT: No obvious masses, adenopathy or JVD. Chest: clear to auscultation. CV: RRR S1 S2 No murmur or added sounds. Abd: Very tender Bowel sounds Y. : Unremarkable. Vo Y. Good UO. DELIVERY STOCK CLERK/psychiatric: Grossly intact. No obvious focal findings. Extremities: No edema. Capillary refill < 3 seconds. Skin: unremarkable. Results: Elevated BUN 23. Decreased Hb 7.2. CXR: Not done. Available chart/ vitals / labs / images reviewed. Video assessment done using teleICU camera, rest of exam as per RN. A/P: Respiratory insufficiency: Continue present management with O2. Duonebs PRN added. Monitor for increasing oxygenation needs and/or need for intubation. Critical Care: critically ill patient. Cont. IVF, abx, Zofran, RAILROAD POLICE OFFICER. Discussed with RN Shelly. Asked RN to reach out to eICU if any questions or concerns later. Time spent with patient/coordination of care with other health professionals (mins): 25 Sepsis Event Evaluation Height, Weight, BMI Height: '" Weight: lbs. oz. kg; 23.73 BMI Method: Exam Exam Patient acknowledged, consented, and participated in this virtual visit which was conducted using real time audio/video Vital Signs Date Time Temp Pulse Resp B/P (MAP) Pulse Ox O2 Delivery O2 Flow Rate FiO2 09/09/22 09:00 102 22 158/87 (110) 92 Nasal Cannula 2.00 09/09/22 08:00 95 Nasal Cannula 2.00 09/09/22 08:00 37.0 09/09/22 08:00 96 133/87 (102) 96 Nasal Cannula 2.00 09/09/22 07:00 96 09/09/22 07:00 96 13 143/87 (105) 96 Nasal Cannula 2.00 09/09/22 06:00 96 20 152/96 (114) 96 Nasal Cannula 2.00 09/09/22 05:00 94 15 124/69 (87) 96 Nasal Cannula 2.00 09/09/22 04:00 97 17 148/94 (112) 96 Nasal Cannula 2.00 09/09/22 04:00 94 Nasal Cannula 2.00 09/09/22 03:00 91 18 124/81 (95) 96 Nasal Cannula 2.00 09/09/22 02:00 92 19 119/68 (85) 95 Nasal Cannula 2.00 09/09/22 01:00 91 22 128/78 (95) 96 Nasal Cannula 2.00 09/09/22 01:00 87 09/09/22 00:00 36.6 09/09/22 00:00 96 Nasal Cannula 2.00 09/09/22 00:00 92 21 131/73 (92) 97 Nasal Cannula 2.00 09/08/22 23:00 94 18 119/76 (90) 96 Nasal Cannula 2.00 09/08/22 22:36 94 Nasal Cannula 1.00 09/08/22 22:00 92 16 118/73 (88) 96 Nasal Cannula 2.00 09/08/22 21:00 90 18 124/91 (102) 98 Nasal Cannula 2.00 09/08/22 20:00 87 17 111/71 (84) 97 Nasal Cannula 2.00 09/08/22 20:00 94 Nasal Cannula 2.00 09/08/22 19:58 36.5 09/08/22 19:00 87 18 114/72 (86) 97 Nasal Cannula 2.00 09/08/22 19:00 80 09/08/22 18:00 87 18 101/66 (78) 94 Nasal Cannula 2.00 09/08/22 17:00 95 25 127/76 (93) 94 Nasal Cannula 2.00 09/08/22 16:07 94 Nasal Cannula 2.00 09/08/22 16:01 36.8 09/08/22 16:00 88 14 94 Nasal Cannula 2.00 09/08/22 14:30 89 19 120/76 (91) 99 Nasal Cannula 2.00 09/08/22 13:42 77 09/08/22 13:30 76 89/58 (68) Nasal Cannula 2.00 09/08/22 13:25 95 Nasal Cannula 2.00 09/08/22 13:20 Nasal Cannula 2.00 09/08/22 13:10 37.4 20 86/57 (67) 94 Nasal Cannula 2.00 09/08/22 13:05 OxyMask 2.00 09/08/22 13:00 20 87/58 (68) 96 OxyMask 1.00 09/08/22 12:51 OxyMask 2.00 09/08/22 12:50 14 85/56 (66) 98 OxyMask 2.00 09/08/22 12:40 15 88/51 (63) 98 OxyMask 3.00 09/08/22 12:36 OxyMask 4.00 09/08/22 12:30 14 98/65 (76) 99 OxyMask 4.00 09/08/22 12:21 OxyMask 6.00 09/08/22 12:21 37.5 16 97/62 (74) 99 OxyMask 6.00 09/08/22 10:40 87 16 106/70 95 Nasal Cannula 1.00 I & O 09/09/22 07:00 Intake Total 3100 ml Output Total 1135 ml Balance 1965 ml Height & Weight Height: '" Weight: lbs. oz. kg; 23.73 BMI Method: General Appearance: Chronically ill, Other Capillary Refill: Less Than 3 Seconds Peripheral Pulses: 1+ Dorsalis Pedis (R); 3+ Dorsalis Pedis (R); 1+ Left Dors- Pedis (L) (Pale); 3+ Left Dors-Pedis (L) (Pale), 3+ Radial Pulses (R), 3+ Radial Pulses (L) Gastrointestinal: abnormal bowel sounds (hypoactive, but present), distended (mildly), tenderness (diffuse abdominal tenderness with light palpation) Results Lab Laboratory Tests 09/08/22 06:00 09/09/22 05:20 Assessment/Plan Assessment/Plan See free text Critical Care: Critically Ill Patient VINOD KAUR MD Sep 09, 2022 09:14
--- NOTE | 2022-09-09 11:41 | Progress Note ---
Subjective Date Seen by a Provider: Sep 09, 2022 Time Seen by a Provider: 11:00 Subjective/Events-last exam doing ok. awake and alert. much better pain control with continuous morphine. Objective Exam Vital Signs Date Time Temp Pulse Resp B/P (MAP) Pulse Ox O2 Delivery O2 Flow Rate FiO2 09/09/22 11:00 100 19 152/93 (112) 97 Nasal Cannula 2.00 09/09/22 10:00 100 20 166/101 (122) 95 Nasal Cannula 2.00 09/09/22 09:00 102 22 158/87 (110) 92 Nasal Cannula 2.00 09/09/22 08:00 95 Nasal Cannula 2.00 09/09/22 08:00 37.0 09/09/22 08:00 96 133/87 (102) 96 Nasal Cannula 2.00 09/09/22 07:00 96 09/09/22 07:00 96 13 143/87 (105) 96 Nasal Cannula 2.00 09/09/22 06:00 96 20 152/96 (114) 96 Nasal Cannula 2.00 09/09/22 05:00 94 15 124/69 (87) 96 Nasal Cannula 2.00 09/09/22 04:00 97 17 148/94 (112) 96 Nasal Cannula 2.00 09/09/22 04:00 94 Nasal Cannula 2.00 09/09/22 03:00 91 18 124/81 (95) 96 Nasal Cannula 2.00 09/09/22 02:00 92 19 119/68 (85) 95 Nasal Cannula 2.00 09/09/22 01:00 91 22 128/78 (95) 96 Nasal Cannula 2.00 09/09/22 01:00 87 09/09/22 00:00 36.6 09/09/22 00:00 96 Nasal Cannula 2.00 09/09/22 00:00 92 21 131/73 (92) 97 Nasal Cannula 2.00 09/08/22 23:00 94 18 119/76 (90) 96 Nasal Cannula 2.00 09/08/22 22:36 94 Nasal Cannula 1.00 09/08/22 22:00 92 16 118/73 (88) 96 Nasal Cannula 2.00 09/08/22 21:00 90 18 124/91 (102) 98 Nasal Cannula 2.00 09/08/22 20:00 87 17 111/71 (84) 97 Nasal Cannula 2.00 09/08/22 20:00 94 Nasal Cannula 2.00 09/08/22 19:58 36.5 09/08/22 19:00 87 18 114/72 (86) 97 Nasal Cannula 2.00 09/08/22 19:00 80 09/08/22 18:00 87 18 101/66 (78) 94 Nasal Cannula 2.00 09/08/22 17:00 95 25 127/76 (93) 94 Nasal Cannula 2.00 09/08/22 16:07 94 Nasal Cannula 2.00 09/08/22 16:01 36.8 09/08/22 16:00 88 14 94 Nasal Cannula 2.00 09/08/22 14:30 89 19 120/76 (91) 99 Nasal Cannula 2.00 09/08/22 13:42 77 09/08/22 13:30 76 89/58 (68) Nasal Cannula 2.00 09/08/22 13:25 95 Nasal Cannula 2.00 09/08/22 13:20 Nasal Cannula 2.00 09/08/22 13:10 37.4 20 86/57 (67) 94 Nasal Cannula 2.00 09/08/22 13:05 OxyMask 2.00 09/08/22 13:00 20 87/58 (68) 96 OxyMask 1.00 09/08/22 12:51 OxyMask 2.00 09/08/22 12:50 14 85/56 (66) 98 OxyMask 2.00 09/08/22 12:40 15 88/51 (63) 98 OxyMask 3.00 09/08/22 12:36 OxyMask 4.00 09/08/22 12:30 14 98/65 (76) 99 OxyMask 4.00 09/08/22 12:21 OxyMask 6.00 09/08/22 12:21 37.5 16 97/62 (74) 99 OxyMask 6.00 I & O 09/09/22 07:00 Intake Total 3100 ml Output Total 1135 ml Balance 1965 ml Capillary Refill : Less Than 3 Seconds General Appearance: No Apparent Distress HEENT: PERRL/EOMI Neck: Full Range of Motion Respiratory: Chest Non Tender, Decreased Breath Sounds Cardiovascular: Regular Rate, Rhythm Gastrointestinal: soft, tenderness Extremity: Normal Capillary Refill Neurologic/Psychiatric: Alert, Oriented x3 Skin: Normal Color Lymphatic: No Adenopathy Results Lab Laboratory Tests 09/09/22 05:20: White Blood Count 9.6, Red Blood Count 2.81L, Hemoglobin 7.2L, Hematocrit 24L, Mean Corpuscular Volume 85, Mean Corpuscular Hemoglobin 26, Mean Corpuscular Hemoglobin Concent 30L, Red Cell Distribution Width 14.4, Platelet Count 189, Mean Platelet Volume 8.7L, Immature Granulocyte % (Auto) 0, Neutrophils (%) (Auto) 96H, Lymphocytes (%) (Auto) 4L, Monocytes (%) (Auto) 0, Eosinophils (%) (Auto) 0, Basophils (%) (Auto) 0, Neutrophils # (Auto) 9.2H, Lymphocytes # (Auto) 0.4L, Monocytes # (Auto) 0.0, Eosinophils # (Auto) 0.0, Basophils # (Auto) 0.0, Immature Granulocyte # (Auto) 0.0, Neutrophils % (Manual) 56, Lymphocytes % (Manual) 5, Monocytes % (Manual) 2, Metamyelocytes % 5, Band Neutrophils 32, Platelet Estimate NORMAL, Poikilocytosis SLIGHT, Elliptocytes SLIGHT, Sodium Level 136, Potassium Level 4.5, Chloride Level 105, Carbon Dioxide Level 23, Anion Gap 8, Blood Urea Nitrogen 23H, Creatinine 0.84, Estimat Glomerular Filtration Rate 75, BUN/Creatinine Ratio 27, Glucose Level 118H, Calcium Level 8.0L, Phosphorus Level 3.8, Magnesium Level 2.3 Assessment/Plan Assessment/Plan Assess & Plan/Chief Complaint s/p exploratory laparotomy, small bowel resection for metastatic lymphoma. OOB to chair. await bowel fx, cont ngt for now. cont abx. MARY KAY PALMA MD Sep 09, 2022 11:41
[2022-09-09] MEDS: LABETALOL HCL 20 MG/4 ML VIAL IV PRN (13:36)
[2022-09-09] MEDS ORDERED: NICOTINE 14 MG (NICODERM) PATCH TD NR (15:00)
[2022-09-10] MEDS: metroNIDAZOLE 500MG/100ML IVPB 100 ML IV SCH ×3 (02:45→17:18)
--- NOTE | 2022-09-10 05:34 | Progress Note - Hospitalist ---
Subjective HPI/CC On Admission Date Seen by Provider: Sep 10, 2022 Time Seen by Provider: 11:00 Chief complaint: Medical consultation following small bowel perforation HPI: This is a 72-year-old female who appears to be very chronically debilitated and frail is status post exploratory laparotomy due to small bowel perforation. Dr. Banerjee completed the surgery in an uncomplicated manner. Currently she is resting on morphine UNIVERSITY RELATIONS VICE PRESIDENT. Sister at the bedside. Subjective/Events-last exam Patient doing really well Pain is controlled on morphine UNIVERSITY RELATIONS VICE PRESIDENT Check meds and labs NG tube still in place Will get up and around today Labs reviewed Review of Systems General: Fatigue, Malaise Gastrointestinal: Abdominal Pain Objective Exam Vital Signs Vital Signs Date Time Temp Pulse Resp B/P (MAP) Pulse Ox O2 Delivery O2 Flow Rate FiO2 09/10/22 12:05 95 Nasal Cannula 2.00 09/10/22 12:00 116 22 144/99 (114) 09/10/22 11:27 37.0 Capillary Refill : Less Than 3 Seconds General Appearance: No Apparent Distress, WD/WN, Chronically ill, Thin Respiratory: Lungs Clear, Normal Breath Sounds Cardiovascular: Regular Rate, Rhythm Neurologic/Psychiatric: Alert, Oriented x3, Depressed Affect Results/Procedures Lab Laboratory Tests 09/10/22 05:30 Patient resulted labs reviewed. Assessment/Plan Assessment and Plan Assess & Plan/Chief Complaint Assessment: Small bowel perforation status post exploratory surgery postop day #2 Frail status History of lung cancer Lymphoma Leukocytosis Anemia Plan: Transfer to fourth floor Frail status Morphine UNIVERSITY RELATIONS VICE PRESIDENT Critical Care Critically Ill Patient ELIZABETHDUKE GARZA Sep 10, 2022 05:34
[2022-09-10 05:43] LABS: BASOPHILS % (AUTO) 0 % (0-10); EOSINOPHILS % (AUTO) 0 % (0-10); HEMATOCRIT 25 % (35-52); HEMOGLOBIN 7.6 g/dL (11.5-16.0); LYMPHOCYTES # (AUTO) 0.5 10^3/uL (1.0-4.0); LYMPHOCYTES % (AUTO) 7 % (12-44); MEAN CORPUSCULAR HEMOGLOBIN 26 pg (25-34); MEAN CORPUSCULAR HGB CONC 31 g/dL (32-36); MEAN CORPUSCULAR VOLUME 85 fL (80-99); MEAN PLATELET VOLUME 8.9 fL (9.0-12.2); MONOCYTES % (AUTO) 0 % (0-12); NEUTROPHILS # (AUTO) 6.6 10^3/uL (1.8-7.8); NEUTROPHILS % (AUTO) 91 % (42-75); PLATELET COUNT 202 10^3/uL (130-400); WHITE BLOOD COUNT 7.2 10^3/uL (4.3-11.0)
[2022-09-10 05:59] LABS: POTASSIUM 4.2 MMOL/L (3.6-5.0)
[2022-09-10 06:01] LABS: CALCIUM 8.1 MG/DL (8.5-10.1)
[2022-09-10 06:05] LABS: CREATININE SERUM 0.8 MG/DL (0.60-1.30); PHOSPHORUS 2.8 MG/DL (2.3-4.7)
[2022-09-10 06:07] LABS: MAGNESIUM 2.1 MG/DL (1.6-2.4)
[2022-09-10] MEDS: RT-ALBUTEROL/IPRATROPIUM 3 ML (DUONEB) VIAL INH PRN ×2 (06:15→18:51)
[2022-09-10] MEDS: PIPERACILLIN SODIUM/TAZOBACTAM 4.5 GM in NS (IVPB) 100 ML IV SCH ×3 (06:46→23:15)
[2022-09-10] MEDS: NICOTINE PATCH REMOVAL TP SCH (09:20)
[2022-09-10] MEDS: NICOTINE 14 MG (NICODERM) PATCH TD SCH (09:20)
--- NOTE | 2022-09-10 09:24 | Tele-ICU Progress Note ---
Subjective Date Seen by a Provider: Sep 10, 2022 Time Seen by a Provider: 09:24 Subjective/Events-last exam (Tele-ICU Physician , Progress Note ) Available chart/ vitals / labs / Images reviewed Video assessment done using teleICU camera, rest of exam as per RN Discussed with RN Events overnight : Afebrile hemodynamically stable Respiratory - I/O =+ Drips:LR 100 Pressors- no Consultants: sx Hospital course: (09/08) 72yF to ED with severe abdominal pain. CT abdomen and pelvis showed a perfortated viscous. OR-Exploratory laparatomy with small bowel resection x2, jeunal and ileal A/P s/p exploratory laparotomy, small bowel resection for metastatic CA - paIN - ton container shipper WITH MORPHINE - cont zosyn - metronidazole Febrile , low grade - cont abx Tachycardia - can be due to pain and betablockers withdrawal - labetalol for now IV prn Hypoxia , mild - on 2 l - resume home inhalers 9 ? COPD ) - IS Anemia - no active bleeding - monitor Nutritions - to start Po when ofk with Sx Metastatic lung adeno CA - as per onc/ PCP Lines : port , (Central Line Necessity Reviewed) Vo: + OG: Nutrition: Analgesia: Anxiety/ delirium VTE Prophylaxis: scd TO START LOVENOX WHEN OK WITH SX Stress Ulcer Prophylaxis: Plans in collaboration with bedside consultants and IM MDs. Discussed with RN to reach out if any questions or concerns A total of 22 minutes of critical care time was devoted to this patient today, required to treat and/or prevent further deterioration of critical care condition ( as above ) . I am remotely monitoring this patient from another state. I am unable to do the bedside exam, and history/physical and pertinent information is taken from other notes in the computer and bedside staff. Sepsis Event Evaluation Height, Weight, BMI Height: '" Weight: lbs. oz. kg; 23.73 BMI Method: Exam Exam Patient acknowledged, consented, and participated in this virtual visit which was conducted using real time audio/video Vital Signs Date Time Temp Pulse Resp B/P (MAP) Pulse Ox O2 Delivery O2 Flow Rate FiO2 09/10/22 09:00 115 16 132/82 (99) 97 Nasal Cannula 2.00 09/10/22 08:00 120 16 132/82 (99) 96 Nasal Cannula 2.00 09/10/22 08:00 95 Nasal Cannula 2.00 09/10/22 07:34 37.0 09/10/22 07:00 121 25 136/84 (101) 95 Nasal Cannula 2.00 09/10/22 07:00 124 09/10/22 06:15 96 Nasal Cannula 1.00 09/10/22 06:00 118 18 137/77 (97) 95 Nasal Cannula 2.00 09/10/22 05:00 108 20 138/98 (111) 91 Nasal Cannula 2.00 09/10/22 04:00 96 Nasal Cannula 2.00 09/10/22 04:00 107 17 147/96 (113) 91 Nasal Cannula 2.00 09/10/22 03:00 105 16 158/85 (109) 93 Nasal Cannula 2.00 09/10/22 02:00 103 19 155/90 (111) 94 Nasal Cannula 2.00 09/10/22 01:00 102 15 149/95 (113) 96 Nasal Cannula 2.00 09/10/22 01:00 111 09/10/22 00:00 101 21 144/90 (108) 94 Nasal Cannula 2.00 09/10/22 00:00 94 Nasal Cannula 2.00 09/09/22 23:33 95 Nasal Cannula 2.00 09/09/22 23:00 105 24 169/85 (113) 95 Nasal Cannula 2.00 09/09/22 22:00 101 25 145/93 (110) 95 Nasal Cannula 2.00 09/09/22 21:00 103 19 141/96 (111) 96 Nasal Cannula 2.00 09/09/22 20:01 36.8 09/09/22 20:00 95 Nasal Cannula 2.00 09/09/22 20:00 105 17 147/90 (109) 95 Nasal Cannula 2.00 09/09/22 19:00 105 23 161/94 (116) 94 Nasal Cannula 2.00 09/09/22 19:00 107 09/09/22 18:00 100 17 135/93 (107) 94 Nasal Cannula 2.00 09/09/22 17:34 36.8 09/09/22 17:00 98 14 135/82 (99) 95 Nasal Cannula 2.00 09/09/22 16:00 105 22 137/76 (96) 95 Nasal Cannula 2.00 09/09/22 15:59 95 Nasal Cannula 2.00 09/09/22 15:00 103 24 135/85 (102) 95 Nasal Cannula 2.00 09/09/22 14:00 102 17 123/86 (98) 94 Nasal Cannula 2.00 09/09/22 13:00 103 24 128/89 (102) 96 Nasal Cannula 2.00 09/09/22 12:51 96 09/09/22 12:00 97 15 149/94 (112) 97 Nasal Cannula 2.00 09/09/22 12:00 95 Nasal Cannula 2.00 09/09/22 11:57 36.7 09/09/22 11:00 100 19 152/93 (112) 97 Nasal Cannula 2.00 09/09/22 10:00 100 20 166/101 (122) 95 Nasal Cannula 2.00 I & O 09/10/22 07:00 Intake Total 1300 ml Output Total 1625 ml Balance -325 ml Height & Weight Height: '" Weight: lbs. oz. kg; 23.73 BMI Method: General Appearance: Chronically ill, Thin, Other HEENT: PERRL/EOMI, Normal ENT Inspection, Pharynx Normal Neck: Full Range of Motion, Normal Inspection, Non Tender, Supple, Carotid Bruit Respiratory: Chest Non Tender, Lungs Clear, Normal Breath Sounds, No Accessory Muscle Use, No Respiratory Distress Cardiovascular: Regular Rate, Rhythm, No Edema, No Gallop, No JVD, No Murmur, Normal Peripheral Pulses Capillary Refill: Less Than 3 Seconds Peripheral Pulses: 1+ Dorsalis Pedis (R); 3+ Dorsalis Pedis (R); 1+ Left Dors- Pedis (L) (Pale); 3+ Left Dors-Pedis (L) (Pale), 3+ Radial Pulses (R), 3+ Radial Pulses (L) Gastrointestinal: soft, tenderness Extremity: Normal Capillary Refill, Normal Inspection, Non Tender, No Calf Tenderness, No Pedal Edema Neurologic/Psychiatric: Alert, Oriented x3 Skin: Normal Color, Warm/Dry Lymphatic: No Adenopathy Results Lab Laboratory Tests 09/09/22 05:20 09/10/22 05:30 Assessment/Plan Assessment/Plan 1 ARELI OROPEZA MD Sep 10, 2022 09:24
[2022-09-10] MEDS: ONDANSETRON 4 MG/2 ML (SDV) Z0FRAN IVP PRN (09:27)
[2022-09-10] MEDS: ENOXAPARIN 40 MG/0.4 ML (LOVENOX) SYR SC SCH (10:35)
[2022-09-10] MEDS: PANTOPRAZOLE 40 MG (PROTONIX) VIAL IV SCH (10:35)
--- NOTE | 2022-09-10 11:05 | Progress Note ---
Subjective Date Seen by a Provider: Sep 10, 2022 Time Seen by a Provider: 10:00 Subjective/Events-last exam doing better. pain better controlled. no fever/chills. minimal ngt output. Objective Exam Vital Signs Date Time Temp Pulse Resp B/P (MAP) Pulse Ox O2 Delivery O2 Flow Rate FiO2 09/10/22 10:00 114 22 150/104 (119) 95 Nasal Cannula 2.00 09/10/22 09:00 115 16 132/82 (99) 97 Nasal Cannula 2.00 09/10/22 08:00 120 16 132/82 (99) 96 Nasal Cannula 2.00 09/10/22 08:00 95 Nasal Cannula 2.00 09/10/22 07:34 37.0 09/10/22 07:00 121 25 136/84 (101) 95 Nasal Cannula 2.00 09/10/22 07:00 124 09/10/22 06:15 96 Nasal Cannula 1.00 09/10/22 06:00 118 18 137/77 (97) 95 Nasal Cannula 2.00 09/10/22 05:00 108 20 138/98 (111) 91 Nasal Cannula 2.00 09/10/22 04:00 96 Nasal Cannula 2.00 09/10/22 04:00 107 17 147/96 (113) 91 Nasal Cannula 2.00 09/10/22 03:00 105 16 158/85 (109) 93 Nasal Cannula 2.00 09/10/22 02:00 103 19 155/90 (111) 94 Nasal Cannula 2.00 09/10/22 01:00 102 15 149/95 (113) 96 Nasal Cannula 2.00 09/10/22 01:00 111 09/10/22 00:00 101 21 144/90 (108) 94 Nasal Cannula 2.00 09/10/22 00:00 94 Nasal Cannula 2.00 09/09/22 23:33 95 Nasal Cannula 2.00 09/09/22 23:00 105 24 169/85 (113) 95 Nasal Cannula 2.00 09/09/22 22:00 101 25 145/93 (110) 95 Nasal Cannula 2.00 09/09/22 21:00 103 19 141/96 (111) 96 Nasal Cannula 2.00 09/09/22 20:01 36.8 09/09/22 20:00 95 Nasal Cannula 2.00 09/09/22 20:00 105 17 147/90 (109) 95 Nasal Cannula 2.00 09/09/22 19:00 105 23 161/94 (116) 94 Nasal Cannula 2.00 09/09/22 19:00 107 09/09/22 18:00 100 17 135/93 (107) 94 Nasal Cannula 2.00 09/09/22 17:34 36.8 09/09/22 17:00 98 14 135/82 (99) 95 Nasal Cannula 2.00 09/09/22 16:00 105 22 137/76 (96) 95 Nasal Cannula 2.00 09/09/22 15:59 95 Nasal Cannula 2.00 09/09/22 15:00 103 24 135/85 (102) 95 Nasal Cannula 2.00 09/09/22 14:00 102 17 123/86 (98) 94 Nasal Cannula 2.00 09/09/22 13:00 103 24 128/89 (102) 96 Nasal Cannula 2.00 09/09/22 12:51 96 09/09/22 12:00 97 15 149/94 (112) 97 Nasal Cannula 2.00 09/09/22 12:00 95 Nasal Cannula 2.00 09/09/22 11:57 36.7 I & O 09/10/22 07:00 Intake Total 1300 ml Output Total 1625 ml Balance -325 ml Capillary Refill : Less Than 3 Seconds General Appearance: No Apparent Distress HEENT: PERRL/EOMI Neck: Full Range of Motion Respiratory: Chest Non Tender, Decreased Breath Sounds Cardiovascular: Regular Rate, Rhythm Gastrointestinal: soft, tenderness, other (wound clean/dry) Extremity: Normal Capillary Refill Neurologic/Psychiatric: Alert, Oriented x3 Skin: Normal Color Lymphatic: No Adenopathy Results Lab Laboratory Tests 09/10/22 05:30: White Blood Count 7.2, Red Blood Count 2.93L, Hemoglobin 7.6L, Hematocrit 25L, Mean Corpuscular Volume 85, Mean Corpuscular Hemoglobin 26, Mean Corpuscular Hemoglobin Concent 31L, Red Cell Distribution Width 14.4, Platelet Count 202, Mean Platelet Volume 8.9L, Immature Granulocyte % (Auto) 1, Neutrophils (%) (Auto) 91H, Lymphocytes (%) (Auto) 7L, Monocytes (%) (Auto) 0, Eosinophils (%) (Auto) 0, Basophils (%) (Auto) 0, Neutrophils # (Auto) 6.6, Lymphocytes # (Auto) 0.5L, Monocytes # (Auto) 0.0, Eosinophils # (Auto) 0.0, Basophils # (Auto) 0.0, Immature Granulocyte # (Auto) 0.1, Sodium Level 133L, Potassium Level 4.2, Chloride Level 103, Carbon Dioxide Level 24, Anion Gap 6, Blood Urea Nitrogen 20H, Creatinine 0.80, Estimat Glomerular Filtration Rate 79, BUN/Creatinine Ratio 25, Glucose Level 93, Calcium Level 8.1L, Phosphorus Level 2.8, Magnesium Level 2.1 Assessment/Plan Assessment/Plan Assess & Plan/Chief Complaint s/p exploratory laparotomy, small bowel resection for metastatic lymphoma. OOB to chair. d/c ngt and ice chips only. cont abx. ok for lovenox dvt prophylaxis. MARY KAY PALMA MD Sep 10, 2022 11:05
[2022-09-10] MEDS ORDERED: METOCLOPRAMIDE INJ 10 MG/2 ML (REGLAN) IVP PRN (12:15)
[2022-09-10] MEDS: PROMETHAZINE INJ 25 MG/ML (PHENERGAN) AMP IVP PRN ×2 (12:56→12:57)
[2022-09-10] MEDS: LACTATED RINGERS 1,000 ML IV SCH ×2 (15:29→23:16)
[2022-09-10] MEDS ORDERED: hydrALAZINE (APESOLINE) 20 MG/ML VIAL IV PRN (16:15)
[2022-09-10] MEDS ORDERED: amLODIPine 5 MG (NORVASC) TAB PO NR (16:30)
[2022-09-10] MEDS: LABETALOL HCL 20 MG/4 ML VIAL IV PRN ×2 (17:18→23:06)
[2022-09-10] MEDS: morphine PCA 100 MG/100 ML BAG IV PRN (23:09)
[2022-09-10] MEDS: LORazepam 0.5 MG (ATIVAN) TABLET PO PRN (23:12)
[2022-09-11] VITALS (8 sets, daily range): BP systolic 102–169; BP diastolic 70–98
[2022-09-11] MEDS: metroNIDAZOLE 500MG/100ML IVPB 100 ML IV SCH ×3 (02:59→18:08)
[2022-09-11] MEDS: LABETALOL HCL 20 MG/4 ML VIAL IV PRN ×2 (04:32→08:30)
[2022-09-11] MEDS: PIPERACILLIN SODIUM/TAZOBACTAM 4.5 GM in NS (IVPB) 100 ML IV SCH ×3 (05:36→22:30)
[2022-09-11 05:48] LABS: BASOPHILS % (AUTO) 0 % (0-10); EOSINOPHILS % (AUTO) 1 % (0-10); HEMATOCRIT 23 % (35-52); LYMPHOCYTES # (AUTO) 0.4 10^3/uL (1.0-4.0); LYMPHOCYTES % (AUTO) 17 % (12-44); MEAN CORPUSCULAR HGB CONC 31 g/dL (32-36); MEAN CORPUSCULAR VOLUME 83 fL (80-99); MEAN PLATELET VOLUME 9.1 fL (9.0-12.2); MONOCYTES % (AUTO) 1 % (0-12); NEUTROPHILS # (AUTO) 1.4 10^3/uL (1.8-7.8); NEUTROPHILS % (AUTO) 67 % (42-75); PLATELET COUNT 159 10^3/uL (130-400); WHITE BLOOD COUNT 2.1 10^3/uL (4.3-11.0)
[2022-09-11 05:49] LABS: ALBUMIN 2.4 GM/DL (3.2-4.5)
[2022-09-11 05:50] LABS: POTASSIUM 3.6 MMOL/L (3.6-5.0)
[2022-09-11 05:52] LABS: TOTAL PROTEIN 4.6 GM/DL (6.4-8.2)
[2022-09-11 05:54] LABS: BILIRUBIN,TOTAL 0.4 MG/DL (0.1-1.0)
[2022-09-11 05:56] LABS: CREATININE SERUM 0.78 MG/DL (0.60-1.30); HEMOGLOBIN 6.9 g/dL (11.5-16.0); MEAN CORPUSCULAR HEMOGLOBIN 25 pg (25-34)
[2022-09-11 06:00] LABS: SMEAR SCAN COMMENT YES
[2022-09-11] MEDS ORDERED: NS IV 500 ML 500 ML IV SCH (06:30)
--- NOTE | 2022-09-11 07:25 | Anesthesia-General Post-Op ---
General Patient Condition Mental Status/LOC: Same as Preop Cardiovascular: Satisfactory Nausea/Vomiting: Absent Respiratory: Satisfactory Pain: Controlled Complications: Absent Post Op Complications Complications None Follow Up Care/Instructions Patient Instructions None needed. Anesthesia/Patient Condition Patient Condition Patient is doing well, no complaints, stable vital signs, no apparent adverse anesthesia problems. No complications reported per nursing. SANTY DUNLAP CRNA Sep 11, 2022 07:25
[2022-09-11] MEDS: amLODIPine 5 MG (NORVASC) TAB PO SCH ×2 (08:12→08:25)
[2022-09-11] MEDS: PANTOPRAZOLE 40 MG (PROTONIX) VIAL IV SCH (08:30)
[2022-09-11] MEDS: NICOTINE PATCH REMOVAL TP SCH (08:31)
[2022-09-11] MEDS: NICOTINE 14 MG (NICODERM) PATCH TD SCH (08:31)
--- NOTE | 2022-09-11 10:09 | Physical Therapy Evaluation ---
PT Evaluation-General Medical Diagnosis Admission Date September 08, 2022 Medical Diagnosis: bowel perforation Onset Date: Sep 08, 2022 Therapy Diagnosis Therapy Diagnosis: impaired mobility/weakness Precautions Precautions/Isolations: Fall Prevention, Standard Precautions Referral Physician: Collin Reason for Referral: Evaluation/Treatment Medical History Pertinent Medical History: COPD, HTN, Smoking Additional Medical History metastatic lung cancer Current History ER secondary to diffuse abdominal pain Reviewed History: Yes Social History Home: Apartment Current Living Status: Alone Entry Into Home: Level Entry Prior Prior Level of Function SCALE: Activities may be completed with or without assistive devices. 7-Rzzeixdviz-oavxlsj completes the activity by him/herself with no assistance from a helper. 5-Set-up or Clean-up Assistance-helper sets up or cleans up; patient completes activity. [place] assists only prior to or following the activity. 4-Supervision or Touching Assistance-helper provides verbal cues and/or touching/steadying and/or contact guard assistance as patient completes activity. Assistance may be provided throughout the activity or intermittently. 3-Partial/Moderate Assistance-helper does LESS THAN HALF the effort. [place] lifts, holds or supports trunk or limbs, but provides less than half the effort. 2-Substantial/Maximal Assistance-helper does MORE THAN HALF the effort. [place] lifts or holds trunk or limbs and provides more than half the effort. 9-Bsrkndjlm-lgzevf does ALL the effort. Patient does none of the effort to complete the activity. Or, the assistance of 2 or more helpers is required for the patient to complete the activity. If activity was not attempted, code reason: 7-Patient Refused. 9-Not Applicable-not attempted and the patient did not perform the activity before the current illness, exacerbation or injury. 10-Not Attempted due to Environmental Limitations-(lack of equipment, weather restraints, etc.). 88-Not Attempted due to Medical Conditions or Safety Concerns. Bed Mobility: 6 Transfers (B,C,W/C): 6 Gait: 6 Indoor Mobility (Ambulation): Independent Stairs: Independent Prior Devices Use: Walker (PRN) PT Evaluation-Current Subjective Patient agrees to PT. Pain Numeric Pain Scale: 5-Moderate Pain Location: Lower Location Body Site: Abdomen Pain Description: Acute Objective Patient Orientation: Normal For Age Attachments: Oxygen, Vo Catheter, IV ROM/Strength ROM Lower Extremities bilateral LE WFL Strength Lower Extremities 3+/5 grossly bilateral LE all planes Integumentary/Posture Integumentary refer to nursing notes Bladder Incontinence: Vo Cath Posture WFL Neuromuscular (Tone, Coordination, Reflexes) grossly intact Sensory Vision: Functional Hearing: Functional Transfers Lying to Sitting/Side of Bed(Q: 4 Sit to Stand (QC): 4 Chair/Tcd-mz-Bgwjp Xfer(QC): 4 SBA with all mobility Gait Mode of Locomotion: Walk Anticipated Mode of Locomotion: Walk Walk 10 feet (QC): 4 Walk 50 ft with 2 Turns(QC): 7 Walk 150 ft (QC): 7 Distance: 10' Gait Assistive Device: FWW Comments/Gait Description safe and functional with no deviation Balance Sitting Static: Normal Sitting Dynamic: Normal Standing Static: Normal Standing Dynamic: Normal Assessment/Needs Patient will be seen by skilled PT to address functional strength and mobility to improve current LOF to safely return to home at maximum LOF. Rehab Potential: Guarded Post Rehab Potential-Barriers: metastatic cancer PT Scale Model Maker Goals [facility] Goals PT Scale Model Maker Goals Time Frame: Sep 30, 2022 Roll Left & Right (QC): 6 Sit to Lying (QC): 6 Lying-Sitting on Side/Bed(QC): 6 Sit to Stand (QC): 6 Chair/Gkx-eq-Melgn Xfer(QC): 6 Toilet Transfer (QC): 6 Walk 10 feet (QC): 6 Walk 50ft with 2 Turns (QC): 6 Walk 150 ft (QC): 6 PT Plan Problem List Problem List: Activity Tolerance, Functional Strength, Safety, Balance, Gait, Transfer, Bed Mobility Treatment/Plan Treatment Plan: Continue Plan of Care Treatment Plan: Bed Mobility, Education, Functional Activity Andra, Functional Strength, Gait, Safety, Therapeutic Exercise, Transfers Treatment Duration: Sep 30, 2022 Frequency: 6 times per week Estimated Hrs Per Day: .25 hour per day Patient and/or Family Agrees t: Yes Time/GCodes Time In: 925 Time Out: 936 Total Billed Treatment Time: 11 Total Billed Treatment 1 visit EVModC 11 min ELISSA VALLE PT Sep 11, 2022 10:08
[2022-09-11] MEDS ORDERED: morphine INJ 4 MG/ML 1 ML (VIAL/SYRINGE) IVP PRN (10:45)
--- NOTE | 2022-09-11 11:01 | Progress Note ---
JORDANFERMÍN 09/11/22 1101: Subjective Date Seen by a Provider: Sep 11, 2022 Time Seen by a Provider: 10:39 Subjective/Events-last exam Pt is laying in bed in mild discomfort. 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 Pt denies having had a BM or flatus since surgery but has been burping. Pt has not ambulated stating that she is in too much pain. Pt states that she experiencing some "shaking" last night while sleeping but attributed it to her being NPO for the past 3 days. Workup today was remarkable for decreased Hgb of 6.9 and decreased WBC of 2.1. Pt is 3 days post chemotherapy. Pt is being transfused with 1U PRBCs. Pt denies any CP, SOA, nausea, vomiting, and coughing. Pt's sister is bedside. Review of Systems General: Chills; No Night Sweats, No Malaise HEENT: No Head Aches, No Visual Changes Pulmonary: No Dyspnea, No Cough Cardiovascular: No: Chest Pain, Palpitations Gastrointestinal: Abdominal Pain; No: Nausea, Vomiting Genitourinary: No Dysuria, No Frequency Musculoskeletal: No: neck pain, shoulder pain 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: No: Weakness, Numbness Objective Exam Last Set of Vital Signs Vital Signs Date Time Temp Pulse Resp B/P (MAP) Pulse Ox O2 Delivery O2 Flow Rate FiO2 09/11/22 10:17 36.4 107 18 102/70 96 Nasal Cannula 2.00 Capillary Refill : Less Than 3 Seconds I&O Intake and Output 09/11/22 00:00 Intake Total 200 ml Output Total 1975 ml Balance -1775 ml Intake Oral 0 ml IV Total 200 ml Output Urine Total 1975 ml General: Alert, Oriented X3 HEENT: PERRLA, Mucous Memb Moist/[place] Neck: Supple, No Thyromegaly Lungs: Clear to Auscultation, Normal Air Movement Heart: No Murmurs, Other (tachycardic ) Abdomen: Other (slightly distended, diffusely tender with palpation, vertical midline surgical scar, wound is dry and intact) Extremities: No Clubbing, No Cyanosis, No Edema Skin: No Rashes, No Significant Lesion Neuro: Normal Speech, Sensation Intact Psych/Mental Status: Mental Status NL, Mood NL Results Lab Laboratory Tests 09/11/22 05:22: White Blood Count 2.1L, Red Blood Count 2.71L, Hemoglobin 6.9*L, Hematocrit 23L, Mean Corpuscular Volume 83, Mean Corpuscular Hemoglobin 25, Mean Corpuscular Hemoglobin Concent 31L, Red Cell Distribution Width 14.5, Platelet Count 159, Mean Platelet Volume 9.1, Immature Granulocyte % (Auto) 15, Neutrophils (%) (Auto) 67, Lymphocytes (%) (Auto) 17, Monocytes (%) (Auto) 1, Eosinophils (%) (Auto) 1, Basophils (%) (Auto) 0, Neutrophils # (Auto) 1.4L, Lymphocytes # (Auto) 0.4L, Monocytes # (Auto) 0.0, Eosinophils # (Auto) 0.0, Basophils # (Auto) 0.0, Immature Granulocyte # (Auto) 0.3H, Sodium Level 134L, Potassium Level 3.6, Chloride Level 97L, Carbon Dioxide Level 25, Anion Gap 12, Blood Urea Nitrogen 16, Creatinine 0.78, Estimat Glomerular Filtration Rate 82, BUN/Creatinine Ratio 21, Glucose Level 86, Calcium Level 8.0L, Corrected Calcium 9.3, Total Bilirubin 0.4, Aspartate Amino Transf (AST/SGOT) 17, Alanine Aminotransferase (ALT/SGPT) 6, Alkaline Phosphatase 37L, Total Protein 4.6L, Albumin 2.4L, Smear Scan YES Assessment/Plan Assessment/Plan Assess & Plan/Chief Complaint 1. S/P exp lap for small bowel perforation post op day #3 -Wound is dry and intact -no BM, recommended ambulation 2. Metastatic Lung Cancer -Diagnosed on 08/03/22 >Mets to bone and L adrenal gland >Followed by Dr. Cast >1st chemotherapy completed on 09/07 3. Leukopenia -WBC decreased to 2.1 >pt is s/p chemotherapy on 09/06 4. Anemia -Hgb 6.9 on 09/11 >Transfused with 1U PRBCs 5. Hyponatremia -given IV NS 500mls 6. Frail 7. Tobacco Abuse -current smoker 8. H/o Lymphoma Plan: Pain meds prn Ambulate pt PT/OT Transfused 1U PRBCs, repeat Hgb tomorrow. PETRA JOHNSON DO 09/12/22 0547: Subjective Subjective/Events-last exam Dr Marroquin updated on status Sister very irritated so attempted to be supportive Transfusion ordered Supervisory-Addendum Brief Verification & Attestation Participated in pt care: history, MDM, physical Personally performed: exam, history, MDM, supervision of care Care discussed with: Medical Student Procedures: n/a Results interpretation: Verified all documentation Verification and Attestation of Medical Student E/M Service A medical student performed and documented this service in my presence. I reviewed and verified all information documented by the medical student and made modifications to such information, when appropriate. I personally performed the physical exam and medical decision making. Petra Johnson, Sep 12, 2022,05:46 FERMÍN ORTEGA Sep 11, 2022 11:01 PETRA JOHNSON DO Sep 12, 2022 05:47
[2022-09-11] MEDS: ENOXAPARIN 40 MG/0.4 ML (LOVENOX) SYR SC SCH (11:28)
--- NOTE | 2022-09-11 11:30 | Occ Therapy Progress Note ---
Therapy Progress Note OT orders received and chart reviewed. OT attempted evaluation this AM, but pt declined services today due to fatigue and overall not feeling well. OT informed pt about purpose and benefit of OT, but she continued to politely decline services today. Per pt request, OT to initiate tx tomorrow. 1, visit 1040 RAMONE COVINGTON OT Sep 11, 2022 11:30
[2022-09-11] MEDS: LACTATED RINGERS 1,000 ML IV SCH ×3 (12:35→22:29)
--- NOTE | 2022-09-11 13:36 | Progress Note - Surgery ---
HARSHA SANDRA 09/11/22 1336: Subjective Date Seen by a Provider: Sep 11, 2022 Subjective/Events-last exam Pt is s/p exp lap for small bowel perforation without complications post op day 3. Pt reports pain is a 6/10 and is still experiencing sharp diffuse abdominal pain. 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 Denies having a BM or flatus. Pt reports nausea, "shaking" last night, and fatigue. Pt is currently NPO. Pt wound is dry/clean without erythema. Pt is 3 days post chemotherapy and is being transfused with 1U PRBCs. Pt is on 2L O2 NC. Pt denies any CP, SOB, vomiting, and coughing. No other complaints. Objective Exam Vital Signs Date Time Temp Pulse Resp B/P (MAP) Pulse Ox O2 Delivery O2 Flow Rate FiO2 09/11/22 12:49 35.5 105 20 139/86 (103) 94 Nasal Cannula 2.00 09/11/22 12:36 35.5 105 20 139/86 94 Nasal Cannula 2.00 09/11/22 10:17 36.4 107 18 102/70 96 Nasal Cannula 2.00 09/11/22 09:56 36.2 104 18 122/84 94 Room Air 2.00 09/11/22 09:27 18 09/11/22 08:00 96 Nasal Cannula 2.00 09/11/22 07:04 109 09/11/22 04:00 36.5 112 18 162/93 (116) 96 Nasal Cannula 2.00 09/11/22 01:00 111 09/11/22 00:00 36.4 112 18 132/92 (105) 95 Nasal Cannula 2.00 09/10/22 23:44 37.5 18 09/10/22 20:55 95 Nasal Cannula 2.00 09/10/22 19:40 37.5 119 22 176/92 (120) 90 Nasal Cannula 2.00 09/10/22 19:00 114 09/10/22 18:51 92 Nasal Cannula 2.00 09/10/22 16:49 118 09/10/22 16:07 170/90 (116) 09/10/22 15:58 36.1 119 22 171/107 (128) 95 Nasal Cannula 2.00 I & O 09/11/22 07:00 Intake Total 0 ml Output Total 2725 ml Balance -2725 ml Capillary Refill : Less Than 3 Seconds General Appearance: No Apparent Distress, WD/WN, Chronically ill, Thin HEENT: PERRL/EOMI Neck: Full Range of Motion Respiratory: Lungs Clear, Normal Breath Sounds Cardiovascular: Regular Rate, Rhythm Peripheral Pulses: 3+ Radial Pulses (R), 3+ Radial Pulses (L) Gastrointestinal: soft, tenderness, other (wound clean/dry) Extremity: Normal Capillary Refill Neurologic/Psychiatric: Alert, Oriented x3, Depressed Affect Skin: Normal Color Lymphatic: No Adenopathy Results Lab Laboratory Tests 09/11/22 05:22: White Blood Count 2.1L, Red Blood Count 2.71L, Hemoglobin 6.9*L, Hematocrit 23L, Mean Corpuscular Volume 83, Mean Corpuscular Hemoglobin 25, Mean Corpuscular Hemoglobin Concent 31L, Red Cell Distribution Width 14.5, Platelet Count 159, Mean Platelet Volume 9.1, Immature Granulocyte % (Auto) 15, Neutrophils (%) (Auto) 67, Lymphocytes (%) (Auto) 17, Monocytes (%) (Auto) 1, Eosinophils (%) (Auto) 1, Basophils (%) (Auto) 0, Neutrophils # (Auto) 1.4L, Lymphocytes # (Auto) 0.4L, Monocytes # (Auto) 0.0, Eosinophils # (Auto) 0.0, Basophils # (Auto) 0.0, Immature Granulocyte # (Auto) 0.3H, Sodium Level 134L, Potassium Level 3.6, Chloride Level 97L, Carbon Dioxide Level 25, Anion Gap 12, Blood Urea Nitrogen 16, Creatinine 0.78, Estimat Glomerular Filtration Rate 82, BUN/Creatinine Ratio 21, Glucose Level 86, Calcium Level 8.0L, Corrected Calcium 9.3, Total Bilirubin 0.4, Aspartate Amino Transf (AST/SGOT) 17, Alanine Aminotransferase (ALT/SGPT) 6, Alkaline Phosphatase 37L, Total Protein 4.6L, Albumin 2.4L, Smear Scan YES Assessment/Plan Assessment/Plan Assessment/Plan 1. S/P exp lap for small bowel perforation post op day #3 -Wound is dry and intact -no BM, recommended ambulation 2. Metastatic Lung Cancer -Diagnosed on 08/03/22 >Mets to bone and L adrenal gland >Followed by Dr. Cast >1st chemotherapy completed on 09/07 3. Leukopenia -WBC decreased to 2.1 >pt is s/p chemotherapy on 09/06 4. Anemia -Hgb 6.9 on 09/11 >Transfused with 1U PRBCs 5. Hyponatremia -given IV NS 500mls 6. Frail 7. Tobacco Abuse -current smoker 8. H/o Lymphoma Plan: Pain meds prn Ambulate pt PT/OT Transfused 1U PRBCs, repeat Hgb tomorrow. NPO until pt has had bm/flatus CLOVIS BANERJEE DO 09/11/221943: Subjective Subjective/Events-last exam Laying in bed. No flatus or bm. Still with abominal pain. Anemia, and being transfused. Some nausea. Not up ambulating. Denies fever sweats chills shortness of breath or chest pain at this time. Objective Exam General Appearance: No Apparent Distress, Chronically ill, Thin HEENT: PERRL/EOMI, Normal ENT Inspection Neck: Non Tender, Supple Respiratory: Chest Non Tender, No Accessory Muscle Use, No Respiratory Distress Cardiovascular: Regular Rate, Rhythm, No JVD Gastrointestinal: soft, tenderness, other (incision clean/dry/intact no signs infection) Extremity: Normal Capillary Refill, Non Tender Neurologic/Psychiatric: Alert, Oriented x3, Depressed Affect Skin: Normal Color, Warm/Dry Lymphatic: No Adenopathy Assessment/Plan Assessment/Plan Assessment/Plan s/p ex lap with small bowel resection x 2 anemia chronic and postoperative/dilutional being transfused metastatic lung cancer patient being transfused prbc follow and transfuse prn await bowel function then advance diet continue abx needs to ambulate pt/ot Supervisory-Addendum Brief Verification & Attestation Participated in pt care: history, MDM, physical Personally performed: exam, history, MDM, supervision of care Care discussed with: Medical Student Procedures: n/a Results interpretation: Verified all documentation Verification and Attestation of Medical Student E/M Service A medical student performed and documented this service in my presence. I reviewed and verified all information documented by the medical student and made modifications to such information, when appropriate. I personally performed the physical exam and medical decision making. Clovis Banerjee, Sep 11, 2022,19:42 HARSHA SANDRA Sep 11, 2022 13:36 CLOVIS BANERJEE DO Sep 11, 2022 19:44
[2022-09-11] MEDS: ONDANSETRON 4 MG/2 ML (SDV) Z0FRAN IVP PRN (16:49)
[2022-09-11] MEDS: RT-ALBUTEROL/IPRATROPIUM 3 ML (DUONEB) VIAL INH PRN (20:22)
[2022-09-11] MEDS ORDERED: meTOprolol 5 MG/5 ML (LOPRESSOR) VIAL IV PRN (23:30)
[2022-09-12] VITALS (8 sets, daily range): BP systolic 117–159; BP diastolic 78–93
[2022-09-12] MEDS: metroNIDAZOLE 500MG/100ML IVPB 100 ML IV SCH ×3 (01:33→17:24)
[2022-09-12] MEDS: ONDANSETRON 4 MG/2 ML (SDV) Z0FRAN IVP PRN ×2 (03:38→09:11)
[2022-09-12] MEDS: PIPERACILLIN SODIUM/TAZOBACTAM 4.5 GM in NS (IVPB) 100 ML IV SCH ×3 (05:50→22:38)
[2022-09-12 06:03] LABS: BASOPHILS % (AUTO) 0 % (0-10)
[2022-09-12 06:05] LABS: EOSINOPHILS # (AUTO) 0.1 10^3/uL (0.0-0.3); EOSINOPHILS % (AUTO) 7 % (0-10); HEMATOCRIT 27 % (35-52); HEMOGLOBIN 8.6 g/dL (11.5-16.0); LYMPHOCYTES # (AUTO) 0.3 10^3/uL (1.0-4.0); LYMPHOCYTES % (AUTO) 28 % (12-44); MEAN CORPUSCULAR HEMOGLOBIN 26 pg (25-34); MEAN CORPUSCULAR HGB CONC 32 g/dL (32-36); MEAN CORPUSCULAR VOLUME 83 fL (80-99); MEAN PLATELET VOLUME 9.7 fL (9.0-12.2); MONOCYTES % (AUTO) 1 % (0-12); NEUTROPHILS # (AUTO) 0.6 10^3/uL (1.8-7.8); NEUTROPHILS % (AUTO) 63 % (42-75); PLATELET COUNT 125 10^3/uL (130-400)
[2022-09-12 06:22] LABS: SMEAR SCAN COMMENT YES
[2022-09-12 06:23] LABS: WHITE BLOOD COUNT 0.9 10^3/uL (4.3-11.0)
[2022-09-12 06:27] LABS: ALBUMIN 2.5 GM/DL (3.2-4.5); BILIRUBIN,TOTAL 0.5 MG/DL (0.1-1.0); CALCIUM 8.1 MG/DL (8.5-10.1); CREATININE SERUM 0.69 MG/DL (0.60-1.30); POTASSIUM 3.5 MMOL/L (3.6-5.0); TOTAL PROTEIN 4.8 GM/DL (6.4-8.2)
--- NOTE | 2022-09-12 07:04 | Progress Note - Surgery ---
JOCYHARSHA T 09/12/22 0704: Subjective Date Seen by a Provider: Sep 12, 2022 Time Seen by a Provider: 07:15 Subjective/Events-last exam Pt is s/p exp lap for small bowel perforation without complications post op day 4. Pt reports she is still experiencing sharp diffuse abdominal pain but episo jesus are further apart. 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 Denies having a BM or flatus. Pt reports increase in nausea and continued fatigue. Pt working on ambulating with PT/OT. Pt is still NPO. Pt wound is dry/clean without erythema. Pt denies any CP, SOB, vomiting, and coughing. No other complaints. Focused Exam Respiratory: Chest Non Tender, Lungs Clear, Normal Breath Sounds, No Accessory Muscle Use, No Respiratory Distress Cardiovascular: Regular Rate, Rhythm, Normal Peripheral Pulses Skin: normal color, warm/dry Objective Exam Vital Signs Date Time Temp Pulse Resp B/P (MAP) Pulse Ox O2 Delivery O2 Flow Rate FiO2 09/12/22 06:52 100 09/12/22 06:00 18 09/12/22 04:15 37.3 105 18 150/90 (110) 96 Room Air 09/12/22 01:28 37.3 100 20 139/88 (105) 96 Nasal Cannula 2.00 09/12/22 01:00 100 09/11/22 23:07 37.1 116 20 141/78 (99) 95 Nasal Cannula 2.00 09/11/22 21:36 36.3 119 17 144/87 (106) Nasal Cannula 2.00 09/11/22 20:22 Nasal Cannula 2.00 09/11/22 20:07 37.4 107 22 169/98 (121) 96 Nasal Cannula 2.00 09/11/22 20:00 Nasal Cannula 09/11/22 19:00 107 09/11/22 17:00 37.3 108 20 144/91 (108) 91 Nasal Cannula 2.00 09/11/22 13:41 106 09/11/22 12:49 35.5 105 20 139/86 (103) 94 Nasal Cannula 2.00 09/11/22 12:36 35.5 105 20 139/86 94 Nasal Cannula 2.00 09/11/22 10:17 36.4 107 18 102/70 96 Nasal Cannula 2.00 09/11/22 09:56 36.2 104 18 122/84 94 Room Air 2.00 09/11/22 09:27 18 09/11/22 08:00 96 Nasal Cannula 2.00 09/11/22 07:04 109 I & O 09/12/22 07:00 Intake Total 1300 ml Output Total 2075 ml Balance -775 ml Capillary Refill : Less Than 3 Seconds General Appearance: No Apparent Distress, Chronically ill, Thin HEENT: PERRL/EOMI, Normal ENT Inspection Neck: Non Tender, Supple Respiratory: Chest Non Tender, No Accessory Muscle Use, No Respiratory Distress Cardiovascular: Regular Rate, Rhythm, No JVD Peripheral Pulses: 3+ Radial Pulses (R), 3+ Radial Pulses (L) Gastrointestinal: soft, tenderness, other (incision clean/dry/intact no signs infection) Extremity: Normal Capillary Refill, Non Tender Neurologic/Psychiatric: Alert, Oriented x3, Depressed Affect Skin: Normal Color, Warm/Dry Lymphatic: No Adenopathy Results Lab Laboratory Tests 09/12/22 05:56: White Blood Count 0.9*L, Red Blood Count 3.28L, Hemoglobin 8.6#L, Hematocrit 27L , Mean Corpuscular Volume 83, Mean Corpuscular Hemoglobin 26, Mean Corpuscular Hemoglobin Concent 32, Red Cell Distribution Width 14.5, Platelet Count 125L, Mean Platelet Volume 9.7, Immature Granulocyte % (Auto) 1, Neutrophils (%) (Auto) 63, Lymphocytes (%) (Auto) 28, Monocytes (%) (Auto) 1, Eosinophils (%) (Auto) 7, Basophils (%) (Auto) 0, Neutrophils # (Auto) 0.6L, Lymphocytes # (A uto) 0.3L, Monocytes # (Auto) 0.0, Eosinophils # (Auto) 0.1, Basophils # (Auto) 0.0, Immature Granulocyte # (Auto) 0.0, Percent Immature Platelet Fraction 1.0, Sodium Level 134L, Potassium Level 3.5L, Chloride Level 99, Carbon Dioxide Level 25, Anion Gap 10, Blood Urea Nitrogen 20H, Creatinine 0.69, Estimat Glomerular Filtration Rate 93, BUN/Creatinine Ratio 29, Glucose Level 90, Calcium Level 8.1L, Corrected Calcium 9.3, Total Bilirubin 0.5, Aspartate Amino Transf (AST/SGOT) 17, Alanine Aminotransferase (ALT/SGPT) 11, Alkaline Phosphatase 38L, Total Protein 4.8L, Albumin 2.5L, Smear Scan YES Assessment/Plan Assessment/Plan Assessment/Plan s/p ex lap with small bowel resection x 2 anemia chronic and postoperative/dilutional being transfused metastatic lung cancer patient being transfused prbc, follow and transfuse prn await bowel function then advance diet continue abx continue pain meds prn ambulate pt, pt/ot CLOVIS HSIEH DO 09/12/221807: Subjective Subjective/Events-last exam Patient not ambulating. Pain controlled better today. Was up to chair. No flatus or bm. Has nausea and slight emesis. Fatigued. Denies fever sweats chills shortness of breath or chest pain at this time. Objective Exam General Appearance: No Apparent Distress, Chronically ill, Thin HEENT: PERRL/EOMI, Normal ENT Inspection Neck: Non Tender, Supple Respiratory: Chest Non Tender, No Accessory Muscle Use, No Respiratory Distress Cardiovascular: Regular Rate, Rhythm, No JVD Gastrointestinal: distended (minimally), tenderness (diffuse), other (incision clean/dry/intact no signs infection) Extremity: Normal Capillary Refill, Non Tender Neurologic/Psychiatric: Alert, Oriented x3, Depressed Affect Skin: Normal Color, Warm/Dry Lymphatic: No Adenopathy Assessment/Plan Assessment/Plan Assessment/Plan s/p ex lap with small bowel resection x 2 anemia chronic and postoperative/dilutional being transfused metastatic lung cancer patient being transfused prbc, follow and transfuse prn await bowel function then advance diet continue abx continue pain meds prn ambulate pt, pt/ot dc mak Supervisory-Addendum Brief Verification & Attestation Participated in pt care: history, MDM, physical Personally performed: exam, history, MDM, supervision of care Care discussed with: Medical Student Procedures: n/a Results interpretation: Verified all documentation Verification and Attestation of Medical Student E/M Service A medical student performed and documented this service in my presence. I reviewed and verified all information documented by the medical student and made modifications to such information, when appropriate. I personally performed the physical exam and medical decision making. Clovis Hsieh, Sep 12, 2022,18:08 HARSHA SANDRA Sep 12, 2022 07:04 CLOVIS HSIEH DO Sep 12, 2022 18:08
[2022-09-12] MEDS: meTOprolol TARTRATE 50 MG (LOPRESSOR) TAB PO SCH ×2 (08:54→20:00)
[2022-09-12] MEDS: PANTOPRAZOLE 40 MG (PROTONIX) VIAL IV SCH (08:54)
[2022-09-12] MEDS: lisINopril 40 MG (PRINIVIL) TABLET PO SCH (08:55)
[2022-09-12] MEDS: amLODIPine 5 MG (NORVASC) TAB PO SCH (08:55)
[2022-09-12] MEDS: TBO-FILGRASTIM 300 MCG/0.5 ML (GRANIX) SQ SCH (08:56)
[2022-09-12] MEDS: NICOTINE 14 MG (NICODERM) PATCH TD SCH (08:56)
[2022-09-12] MEDS: NICOTINE PATCH REMOVAL TP SCH (08:57)
[2022-09-12] MEDS: ENOXAPARIN 40 MG/0.4 ML (LOVENOX) SYR SC SCH (09:11)
[2022-09-12] MEDS: LACTATED RINGERS 1,000 ML IV SCH (09:12)
--- NOTE | 2022-09-12 10:13 | Physical Therapy Daily Note ---
PT Daily Note-Current Subjective Patient agrees to PT. Pain Numeric Pain Scale: 5-Moderate Pain Location: Medial, Lower Location Body Site: Abdomen Pain Description: Acute Section J - Health Conditions 1. Rarely or not at all 2. Occasionally 3. Frequently 4. Almost constantly 8. Unable to answer Pain Effect on Sleep: 2 Pain Interference with Therapy: 2 Pain Interference w/Day-to-Day: 2 Mental Status Patient Orientation: Normal For Age Attachments: Central Line, Oxygen, Vo Catheter Transfers SCALE: Activities may be completed with or without assistive devices. 3-Fwjzwryumm-foouuqw completes the activity by him/herself with no assistance from a helper. 5-Set-up or Clean-up Assistance-helper sets up or cleans up; patient completes activity. [place] assists only prior to or following the activity. 4-Supervision or Touching Assistance-helper provides verbal cues and/or touching/steadying and/or contact guard assistance as patient completes activity. Assistance may be provided throughout the activity or intermittently. 3-Partial/Moderate Assistance-helper does LESS THAN HALF the effort. [place] lifts, holds or supports trunk or limbs, but provides less than half the effort. 2-Substantial/Maximal Assistance-helper does MORE THAN HALF the effort. [place] lifts or holds trunk or limbs and provides more than half the effort. 2-Iyobwltmm-wqqjov does ALL the effort. Patient does none of the effort to complete the activity. Or, the assistance of 2 or more helpers is required for the patient to complete the activity. If activity was not attempted, code reason: 7-Patient Refused. 9-Not Applicable-not attempted and the patient did not perform the activity before the current illness, exacerbation or injury. 10-Not Attempted due to Environmental Limitations-(lack of equipment, weather restraints, etc.). 88-Not Attempted due to Medical Conditions or Safety Concerns. Lying to Sitting/Side of Bed(Q: 6 Sit to Stand (QC): 5 Chair/Hjw-ru-Ztbnq Xfer(QC): 5 Gait Training Distance: 10' x 2 Walk 10 feet (QC): 5 Gait Assistive Device: FWW steady, functional gait sequence Exercises Seated Therapy Exercises: Ankle pumps, Long arc quads Seated Reps: 15 Assessment Patient declined to ambulate increased distance due to abdominal pain. PT educated patient on importance of increase activity to improve functional mobility and medical status. PT Custodial Goals Apprentice Pattern Maker Goals PT Custodial Goals Time Frame: Sep 30, 2022 Roll Left & Right (QC): 6 Sit to Lying (QC): 6 Lying-Sitting on Side/Bed(QC): 6 Sit to Stand (QC): 6 Chair/Ase-az-Eozth Xfer(QC): 6 Toilet Transfer (QC): 6 Walk 10 feet (QC): 6 Walk 50ft with 2 Turns (QC): 6 Walk 150 ft (QC): 6 PT Plan Treatment/Plan Treatment Plan: Continue Plan of Care Treatment Plan: Bed Mobility, Education, Functional Activity Andra, Functional Strength, Gait, Safety, Therapeutic Exercise, Transfers Treatment Duration: Sep 30, 2022 Frequency: 6 times per week Estimated Hrs Per Day: .25 hour per day Patient and/or Family Agrees t: Yes Time Time In: 925 Time Out: 935 Total Billed Treatment Time: 10 Total Billed Treatment 1 visit FA 10 min ELISSA VALLE PT Sep 12, 2022 10:13
--- NOTE | 2022-09-12 10:21 | Occupational Therapy Eval ---
OT Evaluation-General/PLF Medical Diagnosis Admission Date Sep 08, 2022 at 13:45 Medical Diagnosis: bowel perforation Onset Date: Sep 08, 2022 Therapy Diagnosis Therapy Diagnosis: decreased ADL status, weakness Precautions Precautions/Isolations: Standard Precautions Comments 10 lb lifting restriction due to port placement. Referral Physician: Collin Referral Reason: Evaluation/Treatment Medical History Pertinent Medical History: COPD, HTN, Smoking Additional Medical History metastatic lung cancer Current History ED due to abdominal pain Social History Home: Apartment Current Living Status: Alone Entry Into Home: Level Entry ADL-Prior Level of Function SCALE: Activities may be completed with or without assistive devices. 4-Lszjhfrlds-qkgxwnt completes the activity by him/herself with no assistance from a helper. 5-Set-up or Clean-up Assistance-helper sets up or cleans up; patient completes activity. [place] assists only prior to or following the activity. 4-Supervision or Touching Assistance-helper provides verbal cues and/or touching/steadying and/or contact guard assistance as patient completes activity. Assistance may be provided throughout the activity or intermittently. 3-Partial/Moderate Assistance-helper does LESS THAN HALF the effort. [place] lifts, holds or supports trunk or limbs, but provides less than half the effort. 2-Substantial/Maximal Assistance-helper does MORE THAN HALF the effort. [place] lifts or holds trunk or limbs and provides more than half the effort. 9-Qufiiihcz-hhvxxc does ALL the effort. Patient does none of the effort to complete the activity. Or, the assistance of 2 or more helpers is required for the patient to complete the activity. If activity was not attempted, code reason: 7-Patient Refused. 9-Not Applicable-not attempted and the patient did not perform the activity before the current illness, exacerbation or injury. 10-Not Attempted due to Environmental Limitations-(lack of equipment, weather restraints, etc.). 88-Not Attempted due to Medical Conditions or Safety Concerns. ADL PLOF Comments Pt reports IND with ADLs and functional mobility using walker as needed. She has her sister to assist with IADLs. Self Care: Independent Functional Cognition: Independent OT Current Status Subjective Pt in recliner, agreeable to OT tx. Mental Status/Objective Patient Orientation: Person, Place, Situation Attachments: Vo Catheter, IV, Oxygen Current Upper Extremity ROM WFL,. BUE shoulder flexion to approx 160 degrees Upper Extremity Coordination WFL Upper Extremity Strength grossly 3/5 ADL-Treatment Eating (QC): 88 Lower Body Dressing (QC): 1 On/Off Footwear (QC): 1 Other Treatments Pt in recliner, provided information about PLOF and home set up. Pt encouraged to attempt footwear, but pt unable to perform at this time due to abdominal pain (pt did not verbalize pain rating). OT educated pt on figure 4 method, but pt unable to bring foot up in order to reach. At this time, pt would require total assist with footwear, and max-total assist with LE dressing (assist to thread BLEs into pants). In order to increase BUE strength and activity tolerance, pt completed x10 reps each of the following exercises: shoulder flexion, elbow flexion/extension, and finger flexion/extension, rest breaks required between exercises. Pt instructed to increase reps to tolerance, she verbalized understanding. Post tx, pt in recliner, call light in reach and all needs met. Pt states she is tired. Education OT Patient Education: Correct positioning, Energy conservation, Modified ADL techniques, Progress toward Goal/Update tx plan, Purpose of tx/functional activities Teaching Recipient: Patient Teaching Methods: Discussion Response to Teaching: Verbalize Understanding OT Group Home Goals Chiropractic Practice Manager Goals Time Frame: Sep 29, 2022 Oral Hygiene (QC): 5 Toileting Hygiene (QC): 6 Shower/Bathe Self (QC): 4 Upper Body Dressing (QC): 5 Lower Body Dressing (QC): 4 On/Off Footwear (QC): 4 Additional Goals: 1-Demonstrate ADL Tasks, 2-Verbalize Understanding, 3- ImproveStrength/Andra 1=Demonstrate adherence to instructed precautions during ADL tasks. 2=Patient will verbalize/demonstrate understanding of assistive devices/m odifications for ADL. 3=Patient will improve strength/tolerance for activity to enable patient to perform ADL's. OT Education/Plan Problem List/Assessment Assessment: Decreased Activ Tolerance, Decreased UE Strength, Impaired I ADL's, Impaired Self-Care Skills Discharge Recommendations Plan/Recommendations: Continue POC Treatment Plan/Plan of Care Patient would benefit from OT for education, treatment and training to promote independence in ADL's, mobility, safety and/or upper extremity function for ADL's. Plan of Care: ADL Retraining, Functional Mobility, UE Funct Exercise/Act Treatment Duration: Sep 29, 2022 Frequency: 3 times per week (3-5 times per week) Rehab Potential: Guarded Time/GCodes Start Time: 09:55 Stop Time: 10:03 Total Time Billed (hr/min): 8 Billed Treatment Time 1, RAMONE RUBIO OT Sep 12, 2022 10:21
--- NOTE | 2022-09-12 11:05 | Progress Note ---
JORDANFERMÍN 09/12/22 1104: Subjective Date Seen by a Provider: Sep 12, 2022 Time Seen by a Provider: 10:59 Subjective/Events-last exam Pt is sitting in bed comfortably. Pt states that she has had an improvement in her abd pain, though still notes some intermittent pain. Pt denies BM or flatus but states that she feels like "things are moving". Pt continues to burp. Pt was able to sit in chair for a few hours yesterday but denies having ambulated. Pt states that she plans to ambulate with PT today. Pt's weakness seems to have improved and was able to lift herself up into a sitting position without issue or pain. Workup today was remarkable for an improved hgb of 8.6 following transfusion yesterday. Pt's WBC and platelets decreased from yesterday to 0.9 and 125, likely secondary to her recent chemotherapy. Dr. Cast was notified. Pt denies any current nausea, vomiting, fever, CP, or worsening SOA. Review of Systems General: No Chills, No Night Sweats HEENT: No Head Aches, No Visual Changes Pulmonary: No Dyspnea, No Cough Cardiovascular: No: Chest Pain, Palpitations Gastrointestinal: Abdominal Pain; No: Nausea, Vomiting Genitourinary: No Dysuria, No Frequency Musculoskeletal: No: neck pain, shoulder pain 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: No: Weakness, Numbness Objective Exam Last Set of Vital Signs Vital Signs Date Time Temp Pulse Resp B/P (MAP) Pulse Ox O2 Delivery O2 Flow Rate FiO2 09/12/22 09:02 37.1 105 19 159/93 (115) 93 Nasal Cannula 2.00 Capillary Refill : Less Than 3 Seconds I&O Intake and Output 09/12/22 00:00 Intake Total 1100 ml Output Total 2725 ml Balance -1625 ml Intake Oral 0 ml IV Total 1100 ml Output Urine Total 2725 ml General: Alert, Oriented X3 HEENT: PERRLA, Mucous Memb Moist/[place] Neck: Supple, No Thyromegaly Lungs: Clear to Auscultation, Normal Air Movement Heart: No Murmurs, Other (tachycardia) Abdomen: No Masses, Other (distended with diffuse tenderness, vertical midline surgical scar present, wound is dry and intact) Extremities: No Cyanosis, No Edema Skin: No Rashes, No Significant Lesion Neuro: Normal Speech, Normal Tone Psych/Mental Status: Mental Status NL, Mood NL Results Lab Laboratory Tests 09/12/22 05:56: White Blood Count 0.9*L, Red Blood Count 3.28L, Hemoglobin 8.6#L, Hematocrit 27L , Mean Corpuscular Volume 83, Mean Corpuscular Hemoglobin 26, Mean Corpuscular Hemoglobin Concent 32, Red Cell Distribution Width 14.5, Platelet Count 125L, Mean Platelet Volume 9.7, Immature Granulocyte % (Auto) 1, Neutrophils (%) (Auto) 63, Lymphocytes (%) (Auto) 28, Monocytes (%) (Auto) 1, Eosinophils (%) (Auto) 7, Basophils (%) (Auto) 0, Neutrophils # (Auto) 0.6L, Lymphocytes # (Auto) 0.3L, Monocytes # (Auto) 0.0, Eosinophils # (Auto) 0.1, Basophils # (Auto) 0.0, Immature Granulocyte # (Auto) 0.0, Percent Immature Platelet Fraction 1.0, Sodium Level 134L, Potassium Level 3.5L, Chloride Level 99, Carbon Dioxide Level 25, Anion Gap 10, Blood Urea Nitrogen 20H, Creatinine 0.69, Estimat Glomerular Filtration Rate 93, BUN/Creatinine Ratio 29, Glucose Level 90, Calcium Level 8.1L, Corrected Calcium 9.3, Total Bilirubin 0.5, Aspartate Amino Transf (AST/SGOT) 17, Alanine Aminotransferase (ALT/SGPT) 11, Alkaline Phosphatase 38L, Total Protein 4.8L, Albumin 2.5L, Smear Scan YES Assessment/Plan Assessment/Plan Assess & Plan/Chief Complaint 1. S/P exp lap for small bowel perforation post op day #3 -Wound is dry and intact -no BM, recommended ambulation 2. Metastatic Lung Cancer -Diagnosed on 08/03/22 >Mets to bone and L adrenal gland >Followed by Dr. Cast >1st chemotherapy completed on 09/07 3. Chemotherapy-induced Leukopenia -WBC decreased to 2.1 >pt is s/p chemotherapy on 09/06 09/12: -WBC decreased to 0.9 4. Anemia -Hgb 6.9 on 09/11 >Transfused with 1U PRBCs 09/12: -Hgb improved to 8.6 following transfusion 5. Hyponatremia -given IV NS 500mls 6. Frail 7. Tobacco Abuse -current smoker 8. H/o Lymphoma 10. Chemotherapy-induced Thrombocytopenia 09/12: - Plt count decreased to 125 Plan: Consulted Dr. Cast regarding CBC results - pt started on 300mg Granix daily till WBCs improve to 10 Pain meds prn PT/OT IV NS Fluids PETRA JOHNSON DO 09/13/22 0524: Subjective Subjective/Events-last exam Improved Transfusion yest Granix will be ordered Review of Systems General: Fatigue, Malaise Objective Exam General: Alert, Oriented X3 Lungs: Clear to Auscultation Heart: Regular Rate Psych/Mental Status: Mental Status NL Supervisory-Addendum Brief Verification & Attestation Participated in pt care: history, MDM, physical Personally performed: exam, history, MDM, supervision of care Care discussed with: Medical Student Procedures: n/a Results interpretation: Verified all documentation Verification and Attestation of Medical Student E/M Service A medical student performed and documented this service in my presence. I reviewed and verified all information documented by the medical student and made modifications to such information, when appropriate. I personally performed the physical exam and medical decision making. Petra Johnson Sep 13, 2022,05:22 FERMÍN ORTEGA Sep 12, 2022 11:04 PETRA JOHNSON DO Sep 13, 2022 05:24
[2022-09-12] MEDS ORDERED: IPRA4AER INH (11:25)
[2022-09-12] MEDS ORDERED: DOCU100C37 PO (11:25)
[2022-09-12] MEDS ORDERED: DEXA4TAB PO (11:25)
[2022-09-12] MEDS ORDERED: SENN-234 PO (11:25)
[2022-09-12] MEDS ORDERED: PANT40TA52 PO (11:25)
[2022-09-12] MEDS ORDERED: IPRA3AMP31 NEB (11:25)
[2022-09-12] MEDS ORDERED: MORP-68 PO (11:25)
[2022-09-12] MEDS: morphine PCA 100 MG/100 ML BAG IV PRN (12:49)
[2022-09-12] MEDS: RT-ALBUTEROL/IPRATROPIUM 3 ML (DUONEB) VIAL INH PRN (15:12)
[2022-09-12] MEDS: RT-ALBUTEROL/IPRATROPIUM 3 ML (DUONEB) VIAL INH SCH (21:46)
[2022-09-13 00:10] VITALS: BP 124/80
[2022-09-13] MEDS: metroNIDAZOLE 500MG/100ML IVPB 100 ML IV SCH ×2 (02:00→08:36)
[2022-09-13] MEDS: LACTATED RINGERS 1,000 ML IV SCH ×2 (02:08→19:32)
[2022-09-13] MEDS: RT-ALBUTEROL/IPRATROPIUM 3 ML (DUONEB) VIAL INH SCH ×4 (02:37→20:31)
[2022-09-13 03:55] VITALS: BP 131/81
[2022-09-13] MEDS: PIPERACILLIN SODIUM/TAZOBACTAM 4.5 GM in NS (IVPB) 100 ML IV SCH (06:02)
[2022-09-13 06:13] LABS: BASOPHILS % (AUTO) 0 % (0-10); HEMOGLOBIN 7.7 g/dL (11.5-16.0)
[2022-09-13 06:15] LABS: EOSINOPHILS % (AUTO) 3 % (0-10); HEMATOCRIT 25 % (35-52); LYMPHOCYTES # (AUTO) 0.2 10^3/uL (1.0-4.0); LYMPHOCYTES % (AUTO) 23 % (12-44); MEAN CORPUSCULAR HEMOGLOBIN 26 pg (25-34); MEAN CORPUSCULAR HGB CONC 31 g/dL (32-36); MEAN CORPUSCULAR VOLUME 83 fL (80-99); MEAN PLATELET VOLUME 10.4 fL (9.0-12.2); MONOCYTES % (AUTO) 2 % (0-12); NEUTROPHILS # (AUTO) 0.6 10^3/uL (1.8-7.8); NEUTROPHILS % (AUTO) 64 % (42-75); PLATELET COUNT 66 10^3/uL (130-400)
[2022-09-13 06:41] LABS: ALBUMIN 2.4 GM/DL (3.2-4.5); BILIRUBIN,TOTAL 0.3 MG/DL (0.1-1.0); CALCIUM 7.9 MG/DL (8.5-10.1); CREATININE SERUM 0.67 MG/DL (0.60-1.30); POTASSIUM 3.1 MMOL/L (3.6-5.0); TOTAL PROTEIN 4.5 GM/DL (6.4-8.2)
--- NOTE | 2022-09-13 07:40 | Progress Note - Surgery ---
HARSHA SANDRA Newton 09/13/22 0740: Subjective Date Seen by a Provider: Sep 13, 2022 Subjective/Events-last exam Pt is s/p exp lap for small bowel perforation without complications post op day 5. Pt reports she is still experiencing diffuse abdominal pain but episodes are further apart and pain has improved. Denies having a BM but passed flatus at 06:25. Pt continued fatigue. Pt working on ambulating with PT/OT. Pt is still NPO. Wound is dry/clean without erythema. Pt denies any CP, SOB, vomiting, and coughing. No other complaints. Objective Exam Vital Signs Date Time Temp Pulse Resp B/P (MAP) Pulse Ox O2 Delivery O2 Flow Rate FiO2 09/13/22 06:00 18 09/13/22 03:55 37.2 101 18 131/81 (98) 98 Room Air 09/13/22 02:37 93 Nasal Cannula 2.00 09/13/22 00:10 36.4 99 18 124/80 (95) 96 Room Air 09/12/22 21:46 92 Nasal Cannula 2.00 09/12/22 19:43 37.0 101 18 134/80 (98) Nasal Cannula 2.00 09/12/22 19:25 Nasal Cannula 09/12/22 16:06 37.0 101 20 117/78 (91) 96 Nasal Cannula 2.00 09/12/22 15:22 36.8 94 89 28 09/12/22 15:12 89 Nasal Cannula 2.00 09/12/22 13:36 94 09/12/22 12:51 Nasal Cannula 2.00 09/12/22 11:16 36.8 96 18 127/85 (99) Nasal Cannula 2.00 09/12/22 09:02 37.1 105 19 159/93 (115) 93 Nasal Cannula 2.00 09/12/22 08:54 Nasal Cannula 09/12/22 08:00 37.1 105 19 159/93 (115) 93 Nasal Cannula 2.00 I & O 09/13/22 07:00 Intake Total 2450 ml Output Total 750 ml Balance 1700 ml Capillary Refill : Less Than 3 Seconds General Appearance: No Apparent Distress, Chronically ill, Thin HEENT: PERRL/EOMI, Normal ENT Inspection Neck: Non Tender, Supple Respiratory: Chest Non Tender, No Accessory Muscle Use, No Respiratory Distress Cardiovascular: Regular Rate, Rhythm, No JVD Peripheral Pulses: 3+ Radial Pulses (R), 3+ Radial Pulses (L) Gastrointestinal: distended (minimally), tenderness (diffuse), other (incision clean/dry/intact no signs infection) Extremity: Normal Capillary Refill, Non Tender Neurologic/Psychiatric: Alert, Oriented x3, Depressed Affect Skin: Normal Color, Warm/Dry Lymphatic: No Adenopathy Results Lab Laboratory Tests 09/12/22 13:17: Lab Scanned Report Transfusion Reaction Form 09/13/22 06:04: White Blood Count 1.0*L, Red Blood Count 2.99L, Hemoglobin 7.7L, Hematocrit 25L, Mean Corpuscular Volume 83, Mean Corpuscular Hemoglobin 26, Mean Corpuscular Hemoglobin Concent 31L, Red Cell Distribution Width 14.6H, Platelet Count 66L, Mean Platelet Volume 10.4, Immature Granulocyte % (Auto) 8, Neutrophils (%) (Auto) 64, Lymphocytes (%) (Auto) 23, Monocytes (%) (Auto) 2, Eosinophils (%) (Auto) 3, Basophils (%) (Auto) 0, Neutrophils # (Auto) 0.6L, Lymphocytes # (Auto) 0.2L, Monocytes # (Auto) 0.0, Eosinophils # (Auto) 0.0, Basophils # (Auto) 0.0, Immature Granulocyte # (Auto) 0.1, Percent Immature Platelet Fraction 1.7, Sodium Level 136, Potassium Level 3.1L, Chloride Level 101, Carbon Dioxide Level 24, Anion Gap 11, Blood Urea Nitrogen 22H, Creatinine 0.67, Estimat Glomerular Filtration Rate 94, BUN/Creatinine Ratio 33, Glucose Level 96, Calcium Level 7.9L, Corrected Calcium 9.2, Total Bilirubin 0.3, Aspartate Amino Transf (AST/SGOT) 19, Alanine Aminotransferase (ALT/SGPT) 12, Alkaline Phosphatase 34L, Total Protein 4.5L, Albumin 2.4L Assessment/Plan Assessment/Plan Assessment/Plan s/p ex lap with small bowel resection x 5 anemia chronic and postoperative/dilutional being transfused metastatic lung cancer Advance diet continue abx continue pain meds prn ambulate pt, pt/ot CLOVIS BANERJEE DO 09/13/22 0839: Subjective Subjective/Events-last exam Still with pain diffuse. Fairly undercontrol. Passed a little flatus today. Occasional nausea. Started ambulating some yesterday afternoon. Denies n/v f ever sweats chills shortness of breath or chest pain. Objective Exam General Appearance: No Apparent Distress, Chronically ill, Thin HEENT: PERRL/EOMI, Normal ENT Inspection Neck: Non Tender, Supple Respiratory: Chest Non Tender, No Accessory Muscle Use, No Respiratory Distress Cardiovascular: Regular Rate, Rhythm, No JVD Gastrointestinal: distended (minimally), tenderness (diffuse), other (incision clean/dry/intact no signs infection) Extremity: Normal Capillary Refill, Non Tender Neurologic/Psychiatric: Alert, Oriented x3 Skin: Normal Color, Warm/Dry Lymphatic: No Adenopathy Assessment/Plan Assessment/Plan Assessment/Plan s/p ex lap with small bowel resection x 5 anemia chronic and postoperative/dilutional being transfused metastatic lung cancer Advance diet to clears continue abx continue pain meds prn ambulate pt, pt/ot IS Lovenox for dvt prophylaxis. Supervisory-Addendum Brief Verification & Attestation Participated in pt care: history, MDM, physical Personally performed: exam, history, MDM, supervision of care Care discussed with: Medical Student Procedures: n/a Results interpretation: Verified all documentation Verification and Attestation of Medical Student E/M Service A medical student performed and documented this service in my presence. I reviewed and verified all information documented by the medical student and made modifications to such information, when appropriate. I personally performed the physical exam and medical decision making. Clovis Banerjee, Sep 13, 2022,08:39 HARSHA SANDRA Sep 13, 2022 07:40 CLOVIS BANERJEE DO Sep 13, 2022 08:39
[2022-09-13 07:41] VITALS: BP 140/82
[2022-09-13] MEDS: NICOTINE PATCH REMOVAL TP SCH (08:35)
[2022-09-13] MEDS: NICOTINE 14 MG (NICODERM) PATCH TD SCH (08:35)
[2022-09-13] MEDS: TBO-FILGRASTIM 300 MCG/0.5 ML (GRANIX) SQ SCH (08:36)
[2022-09-13] MEDS: PANTOPRAZOLE 40 MG (PROTONIX) VIAL IV SCH (08:37)
[2022-09-13] MEDS: amLODIPine 5 MG (NORVASC) TAB PO SCH (08:37)
[2022-09-13] MEDS: ONDANSETRON 4 MG/2 ML (SDV) Z0FRAN IVP PRN ×2 (08:37→17:16)
[2022-09-13] MEDS: ENOXAPARIN 40 MG/0.4 ML (LOVENOX) SYR SC SCH (08:37)
[2022-09-13] MEDS: lisINopril 40 MG (PRINIVIL) TABLET PO SCH (08:37)
[2022-09-13] MEDS: meTOprolol TARTRATE 50 MG (LOPRESSOR) TAB PO SCH ×2 (08:37→19:27)
--- NOTE | 2022-09-13 09:14 | Occupational Ther Daily Note ---
OT Current Status-Daily Note Subjective Pt alert, lying in bed at incline. Pt agrees to therapy. Rates abdominal pain a 4. Mental Status/Objective Patient Orientation: Person, Place, Time, Situation Attachments: Vo Catheter, IV ADL-Treatment Pt unable to bend at the waist to don socks due to abdominal pain. Pt assisted in lifting leg for therapist to don socks. Therapy Code Descriptions/Definitions Functional [place] Measure: 0=Not Assessed/NA 4=Minimal Assistance 1=Total Assistance 5=Supervision or Setup 2=Maximal Assistance 6=Modified [place] 3=Moderate Assistance 7=Complete IndependenceSCALE: Activities may be completed with or without assistive devices. 4-Ykvgodxikc-dbxpkwh completes the activity by him/herself with no assistance from a helper. 5-Set-up or Clean-up Assistance-helper sets up or cleans up; patient completes activity. [place] assists only prior to or following the activity. 4-Supervision or Touching Assistance-helper provides verbal cues and/or touching/steadying and/or contact guard assistance as patient completes ac tivity. Assistance may be provided throughout the activity or intermittently. 3-Partial/Moderate Assistance-helper does LESS THAN HALF the effort. [place] lifts, holds or supports trunk or limbs, but provides less than half the effort. 2-Substantial/Maximal Assistance-helper does MORE THAN HALF the effort. [place] lifts or holds trunk or limbs and provides more than half the effort. 9-Oxvbmenpp-kahvmg does ALL the effort. Patient does none of the effort to complete the activity. Or, the assistance of 2 or more helpers is required for the patient to complete the activity. If activity was not attempted, code reason: 7-Patient Refused. 9-Not Applicable-not attempted and the patient did not perform the activity before the current illness, exacerbation or injury. 10-Not Attempted due to Environmental Limitations-(lack of equipment, weather restraints, etc.). 88-Not Attempted due to Medical Conditions or Safety Concerns. On/Off Footwear: 2 Other Treatment Pt performed 10 reps each L and R UE of 5 different UE exercises. Pt required ~10 second break between reps. Pt able to perform exercises after skilled education. Pt c/o no SOA. Pt in bed at end of session. Call light/phone in reach. All needs met in room. OT Intermediate Goals Intermediate Goals Time Frame: Sep 29, 2022 Oral Hygiene (QC): 5 Toileting Hygiene (QC): 6 Shower/Bathe Self (QC): 4 Upper Body Dressing (QC): 5 Lower Body Dressing (QC): 4 On/Off Footwear (QC): 4 Additional Goals: 1-Demonstrate ADL Tasks, 2-Verbalize Understanding, 3- ImproveStrength/Andra 1=Demonstrate adherence to instructed precautions during ADL tasks. 2=Patient will verbalize/demonstrate understanding of assistive devic es/modifications for ADL. 3=Patient will improve strength/tolerance for activity to enable patient to perform ADL's. OT Education/Plan Problem List/Assessment Assessment: Decreased Activ Tolerance, Decreased UE Strength Discharge Recommendations Plan/Recommendations: Continue POC Treatment Plan/Plan of Care Patient would benefit from OT for education, treatment and training to promote independence in ADL's, mobility, safety and/or upper extremity function for ADL's. Plan of Care: ADL Retraining, Functional Mobility, UE Funct Exercise/Act Treatment Duration: Sep 29, 2022 Frequency: 3 times per week (3-5 times per week) Rehab Potential: Guarded Time/GCodes Start Time: 08:53 Stop Time: 09:05 Total Time Billed (hr/min): 12 Billed Treatment Time 1 visit EX 1 (12 min) VÍCTOR SANDOVAL Sep 13, 2022 09:14
[2022-09-13] MEDS: POTASSIUM CL 10MEQ/50ML IVPB 50 ML IV SCH ×4 (09:38→12:52)
--- NOTE | 2022-09-13 09:42 | Progress Note ---
MIRANDA PAREDES 09/13/22 0942: Subjective Date Seen by a Provider: Sep 13, 2022 Time Seen by a Provider: 07:40 Subjective/Events-last exam Patient is a 72 F admitted for bowel perforation. The states that she is tired this morning and has had trouble sleeping since admission. She passed gas twice yesterday, has begun ambulation, but has not yet experienced a BM. Indicates chest and abdominal pain that she rates at a 4/10, SOB on exertion, and productive cough. She denies any chills, nausea, vomiting, headaches or night sweats. Review of Systems General: No Chills, No Night Sweats; Fatigue HEENT: No Head Aches Pulmonary: Dyspnea, Cough (Productive), Pleuritic Chest Pain (Pain that she believes is related to her lung cancer) Gastrointestinal: Abdominal Pain; No: Nausea, Vomiting, Diarrhea, Constipation Focused Exam Sepsis Stage: Ruled Out Reason for ruling out sepsis: Patient does not meet SIRS criteria for sepsis diagnosis Objective Exam Last Set of Vital Signs Vital Signs Date Time Temp Pulse Resp B/P (MAP) Pulse Ox O2 Delivery O2 Flow Rate FiO2 09/13/22 08:37 Nasal Cannula 09/13/22 07:41 36.6 98 12 140/82 (101) 95 2.00 09/12/22 15:22 28 Capillary Refill : Less Than 3 Seconds I&O Intake and Output 09/13/22 00:00 Intake Total 1450 ml Output Total 1050 ml Balance 400 ml IV Total 1450 ml Output Urine Total 1050 ml General: Alert, Oriented X3, Cooperative, No Acute Distress HEENT: Atraumatic Neck: Supple, No JVD Lungs: Clear to Auscultation, Other (Slightly hyperresonant lung sounds bilaterally) Heart: Regular Rate, Normal S1, Normal S2, No Murmurs Abdomen: Normal Bowel Sounds (Active bowel sounds in all 4 abdominal qu adrants), Other (Abdomen is minimally distended, surgical site shows no signs of infection or dehiscence of sutures.) Extremities: No Cyanosis, Normal Pulses Skin: No Rashes, No Breakdown, No Significant Lesion Neuro: Normal Speech Psych/Mental Status: Mental Status NL, Mood NL Results Lab Laboratory Tests 09/12/22 13:17: Lab Scanned Report Transfusion Reaction Form 09/13/22 06:04: White Blood Count 1.0*L, Red Blood Count 2.99L, Hemoglobin 7.7L, Hematocrit 25L, Mean Corpuscular Volume 83, Mean Corpuscular Hemoglobin 26, Mean Corpuscular Hemoglobin Concent 31L, Red Cell Distribution Width 14.6H, Platelet Count 66L, Mean Platelet Volume 10.4, Immature Granulocyte % (Auto) 8, Neutrophils (%) (Auto) 64, Lymphocytes (%) (Auto) 23, Monocytes (%) (Auto) 2, Eosinophils (%) (Auto) 3, Basophils (%) (Auto) 0, Neutrophils # (Auto) 0.6L, Lymphocytes # (Auto) 0.2L, Monocytes # (Auto) 0.0, Eosinophils # (Auto) 0.0, Basophils # (Auto) 0.0, Immature Granulocyte # (Auto) 0.1, Percent Immature Platelet Fraction 1.7, Sodium Level 136, Potassium Level 3.1L, Chloride Level 101, Carbon Dioxide Level 24, Anion Gap 11, Blood Urea Nitrogen 22H, Creatinine 0.67, Estimat Glomerular Filtration Rate 94, BUN/Creatinine Ratio 33, Glucose Level 96, Calcium Level 7.9L, Corrected Calcium 9.2, Total Bilirubin 0.3, Aspartate Amino Transf (AST/SGOT) 19, Alanine Aminotransferase (ALT/SGPT) 12, Alkaline Phosphatase 34L, Total Protein 4.5L, Albumin 2.4L Meds As stated in medications list. Current IV medications include metronidazole 100 mls/hr on bag , piperacillin/tazobactam 25 mls/hr on bag 15/15, and LR 1000 ml at 60 ml/hr Filgrastim (granix) for replenishment of white cell count post initialization of chemotherapy IV potassium to be initiated Assessment/Plan Assessment/Plan Assess & Plan/Chief Complaint 1. S/P exp lap for small bowel perforation post op day #5 -Wound is dry, no signs of infection or suture dehiscence noted. -no BM, patient is ambulating with PT/OT, passing flatus 2. Metastatic Lung Cancer -Diagnosed on 08/03/22 >Mets to bone and L adrenal gland >Followed by Dr. Cast >1st chemotherapy completed on 09/07 3. Chemotherapy-induced Leukopenia -WBC decreased to 1.0 >pt is s/p chemotherapy on 09/06 09/12: -WBC decreased to 0.9 -pt placed on filgrastim as per Dr. Ayala -WBC increased to 1.0 as of 09/13 4. Anemia -Hgb 6.9 on 09/11 >Transfused with 1U PRBCs 09/12: -Hgb improved to 8.6 following transfusion 09/13: -Hgb decreased to 7.7 5. Hyponatremia -given IV NS 500mls 6. Frail 7. Tobacco Abuse -current smoker 8. H/o Lymphoma 10. Chemotherapy-induced Thrombocytopenia 09/12: - Plt count decreased to 125 09/13: -Plt count decreased to 66 11. Hypokalemia -Initiated potassium chloride, 4 bags at 50 ml/hr PETRA JOHNSON DO 09/13/222031: Objective Exam General: Alert, Oriented X3, Cooperative, No Acute Distress Lungs: Clear to Auscultation, Normal Air Movement Abdomen: Normal Bowel Sounds, Soft, No Tenderness, No Hepatosplenomegaly, No Masses Psych/Mental Status: Mental Status NL, Mood NL Assessment/Plan Assessment/Plan Assess & Plan/Chief Complaint Much improved Replace potassium Monitor closely Supervisory-Addendum Brief Verification & Attestation Participated in pt care: history, MDM, physical Personally performed: exam, history, MDM, supervision of care Care discussed with: Medical Student Procedures: n/a Results interpretation: Verified all documentation Verification and Attestation of Medical Student E/M Service A medical student performed and documented this service in my presence. I reviewed and verified all information documented by the medical student and made modifications to such information, when appropriate. I personally performed the physical exam and medical decision making. Petra Johnson Sep 13, 2022,20:31 MIRANDA PAREDES Sep 13, 2022 09:42 PETRA JOHNSON DO Sep 13, 2022 20:32
--- NOTE | 2022-09-13 10:14 | Physical Therapy Daily Note ---
PT Daily Note-Current Subjective Pt sitting in bed with Nurse present taking vitals and giving meds. Pt agrees to PT. Pain Location: Incisional Location Body Site: Abdomen Pain Description: Ache Comment: Reported but doesn't rate Section J - Health Conditions 1. Rarely or not at all 2. Occasionally 3. Frequently 4. Almost constantly 8. Unable to answer Pain Effect on Sleep: 2 Pain Interference with Therapy: 2 Pain Interference w/Day-to-Day: 2 Mental Status Patient Orientation: Person, Place, Time, Situation Attachments: Central Line, Oxygen (2L) Transfers SCALE: Activities may be completed with or without assistive devices. 2-Tuxwytwrvw-hruyavj completes the activity by him/herself with no assistance f rom a helper. 5-Set-up or Clean-up Assistance-helper sets up or cleans up; patient completes activity. [place] assists only prior to or following the activity. 4-Supervision or Touching Assistance-helper provides verbal cues and/or touching/steadying and/or contact guard assistance as patient completes activity. Assistance may be provided throughout the activity or intermittently. 3-Partial/Moderate Assistance-helper does LESS THAN HALF the effort. [place] lifts, holds or supports trunk or limbs, but provides less than half the effort. 2-Substantial/Maximal Assistance-helper does MORE THAN HALF the effort. [place] lifts or holds trunk or limbs and provides more than half the effort. 6-Qypqpbjru-sfnijm does ALL the effort. Patient does none of the effort to complete the activity. Or, the assistance of 2 or more helpers is required for the patient to complete the activity. If activity was not attempted, code reason: 7-Patient Refused. 9-Not Applicable-not attempted and the patient did not perform the activity before the current illness, exacerbation or injury. 10-Not Attempted due to Environmental Limitations-(lack of equipment, weather restraints, etc.). 88-Not Attempted due to Medical Conditions or Safety Concerns. Lying to Sitting/Side of Bed(Q: 4 Sit to Stand (QC): 4 Weight Bearing Full Weight Bearing Full Weight Bearing Gait Training Does the Patient Walk?: Yes Distance: 225' Walk 10 feet (QC): 5 Walk 50 ft with 2 Turns(QC): 5 Walk 150 ft (QC): 5 Gait Persons Needed: 1 Gait Assistive Device: FWW TECHNICIAN [employer] DEVELOPMENT is used to manage IV pole and O2. Exercises Supine Ex: Ankle pumps, Quad Set, Glut sets, Heel Slides, Straight leg raise, Hip abd/add Supine Reps: 15 Treatments After Nurse is finished w/vitals and giving meds, Dr Polanco checks on pt then pt completes Supine Ex in bed before TF to EOB. Pt stands and amb. in hallway [facility] re returning to room to rest in bed. All needs met, call light in hand. Assessment Current Status: Good Progress Pt reprots feeling a little tender abdominally but is able to transfer & amb well. PT Urgent Care Nurse Practitioner Goals Urgent Care Nurse Practitioner Goals PT Custodial Goals Time Frame: Sep 30, 2022 Roll Left & Right (QC): 6 Sit to Lying (QC): 6 Lying-Sitting on Side/Bed(QC): 6 Sit to Stand (QC): 6 Chair/Dre-ys-Zogvp Xfer(QC): 6 Toilet Transfer (QC): 6 Walk 10 feet (QC): 6 Walk 50ft with 2 Turns (QC): 6 Walk 150 ft (QC): 6 PT Plan Problem List Problem List: Activity Tolerance Treatment/Plan Treatment Plan: Continue Plan of Care Treatment Plan: Bed Mobility, Education, Functional Activity Andra, Functional Strength, Gait, Safety, Therapeutic Exercise, Transfers Treatment Duration: Sep 30, 2022 Frequency: 6 times per week Estimated Hrs Per Day: .25 hour per day Patient and/or Family Agrees t: Yes Safety Risks/Education Patient Education: Gait Training, Transfer Techniques, Correct Positioning, Safety Issues Teaching Recipient: Patient Teaching Methods: Discussion Response to Teaching: Verbalize Understanding Time Time In: 845 Time Out: 925 Total Billed Treatment Time: 40 Total Billed Treatment 1, EX x2 (25m) & GT (15m) ASHA GEE TECHNICIAN [employer]CTOR DEVELOPMENT Sep 13, 2022 10:14
[2022-09-13 12:16] VITALS: BP 130/83
[2022-09-13 16:22] VITALS: BP 132/79
[2022-09-13 19:04] VITALS: BP 131/78
[2022-09-14] VITALS (10 sets, daily range): BP systolic 118–157; BP diastolic 71–99
[2022-09-14] MEDS: ONDANSETRON 4 MG/2 ML (SDV) Z0FRAN IVP PRN (02:11)
[2022-09-14] MEDS: LORazepam 0.5 MG (ATIVAN) TABLET PO PRN (02:19)
[2022-09-14] MEDS: RT-ALBUTEROL/IPRATROPIUM 3 ML (DUONEB) VIAL INH SCH ×3 (02:45→21:41)
[2022-09-14 06:21] LABS: BASOPHILS % (AUTO) 0 % (0-10); EOSINOPHILS % (AUTO) 1 % (0-10); HEMATOCRIT 21 % (35-52); LYMPHOCYTES # (AUTO) 0.3 10^3/uL (1.0-4.0); LYMPHOCYTES % (AUTO) 22 % (12-44); MEAN CORPUSCULAR HEMOGLOBIN 26 pg (25-34); MEAN CORPUSCULAR HGB CONC 31 g/dL (32-36); MEAN CORPUSCULAR VOLUME 83 fL (80-99); MEAN PLATELET VOLUME 9.8 fL (9.0-12.2); MONOCYTES % (AUTO) 3 % (0-12); NEUTROPHILS # (AUTO) 0.7 10^3/uL (1.8-7.8); NEUTROPHILS % (AUTO) 64 % (42-75)
[2022-09-14 06:24] LABS: ALBUMIN 2.3 GM/DL (3.2-4.5); HEMOGLOBIN 6.6 g/dL (11.5-16.0); WHITE BLOOD COUNT 1.1 10^3/uL (4.3-11.0)
[2022-09-14 06:25] LABS: CALCIUM 7.4 MG/DL (8.5-10.1); PLATELET COUNT 39 10^3/uL (130-400)
[2022-09-14 06:28] LABS: BILIRUBIN,TOTAL 0.4 MG/DL (0.1-1.0)
[2022-09-14 06:30] LABS: CREATININE SERUM 0.59 MG/DL (0.60-1.30)
--- NOTE | 2022-09-14 07:41 | Progress Note - Surgery ---
HARSHA SANDRA Newton 09/14/22 0741: Subjective Date Seen by a Provider: Sep 14, 2022 Time Seen by a Provider: 07:43 Subjective/Events-last exam Pt is s/p exp lap for small bowel perforation without complications post op day 6. Pt reports she is still experiencing diffuse abdominal pain but improved. M orphine [employer]. Denies having a BM hasnt passed flatus since yesterday morning. Pt continued fatigue. Pt working on ambulating with PT/OT. Pt is still on clear liquid. Wound is dry/clean without erythema. Pt denies any CP, SOB, nausea, vomiting, and coughing. No other complaints. Objective Exam Vital Signs Date Time Temp Pulse Resp B/P (MAP) Pulse Ox O2 Delivery O2 Flow Rate FiO2 09/14/22 06:05 16 09/14/22 03:36 36.3 97 18 124/74 (91) 97 Nasal Cannula 2.00 09/14/22 00:00 37.0 99 18 128/82 (97) 94 Nasal Cannula 2.00 09/13/22 20:31 97 Nasal Cannula 2.00 09/13/22 19:36 Nasal Cannula 2.00 09/13/22 19:04 37.0 95 20 131/78 (95) 97 Nasal Cannula 2.00 09/13/22 17:26 22 09/13/22 16:22 36.4 62 22 132/79 (96) 90 Room Air 09/13/22 15:14 94 Nasal Cannula 2.00 09/13/22 12:16 37.1 101 16 130/83 (99) 93 Nasal Cannula 2.00 09/13/22 10:31 92 Room Air 09/13/22 08:37 Nasal Cannula 09/13/22 07:41 36.6 98 12 140/82 (101) 95 Nasal Cannula 2.00 I & O 09/14/22 07:00 Intake Total 3190 ml Output Total 1500 ml Balance 1690 ml Capillary Refill : Less Than 3 Seconds General Appearance: No Apparent Distress, Chronically ill, Thin HEENT: PERRL/EOMI, Normal ENT Inspection Neck: Non Tender, Supple Respiratory: Chest Non Tender, No Accessory Muscle Use, No Respiratory Distress Cardiovascular: Regular Rate, Rhythm, No JVD Peripheral Pulses: 3+ Radial Pulses (R), 3+ Radial Pulses (L) Gastrointestinal: distended (minimally), tenderness (diffuse), other (incision clean/dry/intact no signs infection) Extremity: Normal Capillary Refill, Non Tender Neurologic/Psychiatric: Alert, Oriented x3 Skin: Normal Color, Warm/Dry Lymphatic: No Adenopathy Results Lab Laboratory Tests 09/14/22 06:10: White Blood Count 1.1*L, Red Blood Count 2.58L, Hemoglobin 6.6*L, Hematocrit 21L , Mean Corpuscular Volume 83, Mean Corpuscular Hemoglobin 26, Mean Corpuscular Hemoglobin Concent 31L, Red Cell Distribution Width 14.4, Platelet Count 39*L, Mean Platelet Volume 9.8, Immature Granulocyte % (Auto) 11, Neutrophils (%) (A uto) 64, Lymphocytes (%) (Auto) 22, Monocytes (%) (Auto) 3, Eosinophils (%) (Auto) 1, Basophils (%) (Auto) 0, Neutrophils # (Auto) 0.7L, Lymphocytes # (Auto) 0.3L, Monocytes # (Auto) 0.0, Eosinophils # (Auto) 0.0, Basophils # (Auto) 0.0, Immature Granulocyte # (Auto) 0.1, Percent Immature Platelet Fraction 2.6, Sodium Level 134L, Potassium Level 3.0L, Chloride Level 101, Carbon Dioxide Level 26, Anion Gap 7, Blood Urea Nitrogen 14, Creatinine 0.59L, Estimat Glomerular Filtration Rate 97, BUN/Creatinine Ratio 24, Glucose Level 107H, Calcium Level 7.4L, Corrected Calcium 8.8, Total Bilirubin 0.4, Aspartate Amino Transf (AST/SGOT) 32, Alanine Aminotransferase (ALT/SGPT) 13, Alkaline Phosphatase 30L, Total Protein 4.0L, Albumin 2.3L Assessment/Plan Assessment/Plan Assessment/Plan pt improved, continue to monitor Advance diet once pt has bowel movement pain meds prn replace potassium continue ambulating, pt/ot CLOVIS BANERJEE DO 09/15/22 1723: Subjective Subjective/Events-last exam We will watch patient is tolerating some liquids. She is passing some flatus. She is working with physical therapy and getting up. Having less nausea. No emesis. Denies any new complaints. Wanting food. Objective Exam General Appearance: No Apparent Distress, Chronically ill, Thin HEENT: PERRL/EOMI, Normal ENT Inspection Neck: Non Tender, Supple Respiratory: Chest Non Tender, No Accessory Muscle Use, No Respiratory Distress Cardiovascular: Regular Rate, Rhythm, No JVD Gastrointestinal: soft, distended (minimally), tenderness (minimal), other (incision clean/dry/intact no signs infection) Extremity: Normal Capillary Refill, Non Tender Neurologic/Psychiatric: Alert, Oriented x3 Skin: Normal Color, Warm/Dry Lymphatic: No Adenopathy Assessment/Plan Assessment/Plan Assessment/Plan s/p ex lap small bowel resection x 2 lung ca c mets hypokalemia passing flatus will advance diet slowly replace electrolytes Supervisory-Addendum Brief Verification & Attestation Participated in pt care: history, MDM, physical Personally performed: exam, history, MDM, supervision of care Care discussed with: Medical Student Procedures: n/a Results interpretation: Verified all documentation Verification and Attestation of Medical Student E/M Service A medical student performed and documented this service in my presence. I reviewed and verified all information documented by the medical student and made modifications to such information, when appropriate. I personally performed the physical exam and medical decision making. Clovis Banerjee, Sep 14, 2022,16:29 HARSHA SANDRA Sep 14, 2022 07:41 CLOVIS BANERJEE DO Sep 15, 2022 17:23
[2022-09-14] MEDS: lisINopril 40 MG (PRINIVIL) TABLET PO SCH (08:46)
[2022-09-14] MEDS: NICOTINE 14 MG (NICODERM) PATCH TD SCH (08:46)
[2022-09-14] MEDS: NICOTINE PATCH REMOVAL TP SCH (08:46)
[2022-09-14] MEDS: meTOprolol TARTRATE 50 MG (LOPRESSOR) TAB PO SCH ×2 (08:47→22:01)
[2022-09-14] MEDS: ENOXAPARIN 40 MG/0.4 ML (LOVENOX) SYR SC SCH (08:47)
[2022-09-14] MEDS: TBO-FILGRASTIM 300 MCG/0.5 ML (GRANIX) SQ SCH (08:47)
[2022-09-14] MEDS: PANTOPRAZOLE 40 MG (PROTONIX) TAB PO SCH (08:47)
[2022-09-14] MEDS: amLODIPine 5 MG (NORVASC) TAB PO SCH (08:47)
--- NOTE | 2022-09-14 08:58 | Occ Therapy Progress Note ---
Therapy Progress Note Pt declined therapy stating that she is feeling shooting pain and is not feeling very well at this time. Reported to nrsg. Will attempt to see pt at next available time. 1 refusal VÍCTOR SANDOVAL Sep 14, 2022 08:58
--- NOTE | 2022-09-14 09:29 | Physical Therapy Progress Note ---
Therapy Progress Note Patient refused due to "having a bad night". RN confirms. RN also reports patient is up with nursing staff PRN in [facility]. PT will attempt tomorrow a.m. 1 ref ELISSA VALLE PT Sep 14, 2022 09:29
[2022-09-14] MEDS ORDERED: MAGNESIUM 1 GM/100 ML IVPB 100 ML IV ONE (10:30)
[2022-09-14] MEDS: POTASSIUM CL 10MEQ/50ML IVPB 50 ML IV SCH ×7 (10:39→17:43)
[2022-09-14] MEDS ORDERED: NS IV 500 ML 500 ML IV SCH (10:45)
--- NOTE | 2022-09-14 11:42 | Progress Note ---
JIMMYKEVINFERMÍN Terry 09/14/22 1142: Subjective Date Seen by a Provider: Sep 14, 2022 Time Seen by a Provider: 11:27 Subjective/Events-last exam Pt is laying in bed comfortably. Pt denies BMs but notes flatus yesterday and today. Pt's abd pain is unchanged but notes that she feels like its well cont rolled on her current pain medication. Pt's diet was advanced to clears and she was able to eat yesterday and this morning without issue. Pt ambulated twice yesterday with PT, during which she experienced increased SOA and fatigue. Pt states that she intends to ambulate with PT again today. Pt has been using her spirometer 2-3x an hour. Pt has no other complaints. Pt denies current nausea, vomiting, CP, SOA, or chills. Review of Systems General: No Chills, No Night Sweats HEENT: No Head Aches, No Visual Changes Pulmonary: No Dyspnea, No Cough Cardiovascular: No: Chest Pain, Palpitations Gastrointestinal: Abdominal Pain; No: Nausea, Vomiting Genitourinary: No Dysuria, No Frequency Musculoskeletal: No: neck pain, shoulder pain 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: No: Weakness, Numbness Objective Exam Last Set of Vital Signs Vital Signs Date Time Temp Pulse Resp B/P (MAP) Pulse Ox O2 Delivery O2 Flow Rate FiO2 09/14/22 09:09 96 Nasal Cannula 2.00 09/14/22 08:23 35.7 99 20 146/89 (108) 09/12/22 15:22 28 Capillary Refill : Less Than 3 Seconds I&O Intake and Output 09/14/22 00:00 Intake Total 3890 ml Output Total 1250 ml Balance 2640 ml Intake Oral 1390 ml IV Total 2500 ml Output Urine Total 1250 ml General: Alert, Oriented X3, No Acute Distress HEENT: PERRLA, Mucous Memb Moist/[place] Neck: Supple, No Thyromegaly Lungs: Clear to Auscultation, Normal Air Movement Heart: Regular Rate, No Murmurs Abdomen: Normal Bowel Sounds, Soft, Other (vertical midline surgical wound thats dry and intact, diffuse abd tenderness and distension) Extremities: No Cyanosis, No Edema, No Tenderness/Swelling Skin: No Rashes, No Significant Lesion Neuro: Normal Speech, Normal Tone, Sensation Intact Psych/Mental Status: Mental Status NL, Mood NL Results Lab Laboratory Tests 09/14/22 06:10: White Blood Count 1.1*L, Red Blood Count 2.58L, Hemoglobin 6.6*L, Hematocrit 21L , Mean Corpuscular Volume 83, Mean Corpuscular Hemoglobin 26, Mean Corpuscular Hemoglobin Concent 31L, Red Cell Distribution Width 14.4, Platelet Count 39*L, Mean Platelet Volume 9.8, Immature Granulocyte % (Auto) 11, Neutrophils (%) (Auto) 64, Lymphocytes (%) (Auto) 22, Monocytes (%) (Auto) 3, Eosinophils (%) (Auto) 1, Basophils (%) (Auto) 0, Neutrophils # (Auto) 0.7L, Lymphocytes # (Auto) 0.3L, Monocytes # (Auto) 0.0, Eosinophils # (Auto) 0.0, Basophils # (Auto) 0.0, Immature Granulocyte # (Auto) 0.1, Percent Immature Platelet Fraction 2.6, Sodium Level 134L, Potassium Level 3.0L, Chloride Level 101, Carbon Dioxide Level 26, Anion Gap 7, Blood Urea Nitrogen 14, Creatinine 0.59L, Estimat Glomerular Filtration Rate 97, BUN/Creatinine Ratio 24, Glucose Level 107H, Calcium Level 7.4L, Corrected Calcium 8.8, Magnesium Level 1.5L, Total Bilirubin 0.4, Aspartate Amino Transf (AST/SGOT) 32, Alanine Aminotransferase (ALT/SGPT) 13, Alkaline Phosphatase 30L, Total Protein 4.0L, Albumin 2.3L Assessment/Plan Assessment/Plan Assess & Plan/Chief Complaint 1. S/P exp lap for small bowel perforation post op day #3 -Wound is dry and intact 09/14: -Had flatus, no BM 2. Metastatic Lung Cancer -Diagnosed on 08/03/22 >Mets to bone and L adrenal gland >Followed by Dr. Cast >1st chemotherapy completed on 09/07 3. Chemotherapy-induced Leukopenia -WBC decreased to 2.1 >pt is s/p chemotherapy on 09/06 09/12: -WBC decreased to 0.9 09/14: -WBC improved to 1.1 4. Anemia -Hgb 6.9 on 09/11 >Transfused with 1U PRBCs 09/12: -Hgb improved to 8.6 following transfusion 09/14: -Hgb decreased to 6.6 >transfusion with 1U PRBCs ordered 5. Hyponatremia -given IV NS 500mls 6. Frail 7. Tobacco Abuse -current smoker 8. H/o Lymphoma 10. Chemotherapy-induced Thrombocytopenia 09/12: - Plt count decreased to 125 09/14: -Plt count decreased to 39 Plan: Continue 300mg Granix daily till WBCs improve to 10 Pain meds prn PT/OT IV NS Fluids Transfuse with 1 U PRBC Replace K - 80 mEq Monitor platelets PETRA JOHNSON DO 09/14/222033: Supervisory-Addendum Brief Verification & Attestation Participated in pt care: history, MDM, physical Personally performed: exam, history, MDM, supervision of care Care discussed with: Medical Student Procedures: n/a Results interpretation: Verified all documentation Verification and Attestation of Medical Student E/M Service A medical student performed and documented this service in my presence. I reviewed and verified all information documented by the medical student and made modifications to such information, when appropriate. I personally performed the physical exam and medical decision making. Petra Johnson, Sep 14, 2022,20:34 FERMÍN ORTEGA Sep 14, 2022 11:42 PETRA JOHNSON DO Sep 14, 2022 20:34
[2022-09-14] MEDS: LACTATED RINGERS 1,000 ML IV SCH (12:11)
[2022-09-14] MEDS: morphine PCA 100 MG/100 ML BAG IV PRN (12:42)
[2022-09-15] MEDS: RT-ALBUTEROL/IPRATROPIUM 3 ML (DUONEB) VIAL INH SCH ×4 (03:05→22:00)
[2022-09-15 04:01] VITALS: BP 138/87
[2022-09-15 05:53] LABS: BASOPHILS % (AUTO) 1 % (0-10); EOSINOPHILS % (AUTO) 1 % (0-10); HEMATOCRIT 24 % (35-52); HEMOGLOBIN 7.7 g/dL (11.5-16.0); LYMPHOCYTES # (AUTO) 0.3 10^3/uL (1.0-4.0); LYMPHOCYTES % (AUTO) 35 % (12-44); MEAN CORPUSCULAR HEMOGLOBIN 27 pg (25-34); MEAN CORPUSCULAR HGB CONC 32 g/dL (32-36); MEAN CORPUSCULAR VOLUME 82 fL (80-99); MEAN PLATELET VOLUME 8.7 fL (9.0-12.2); MONOCYTES # (AUTO) 0.1 10^3/uL (0.0-1.0); MONOCYTES % (AUTO) 9 % (0-12); NEUTROPHILS # (AUTO) 0.4 10^3/uL (1.8-7.8); NEUTROPHILS % (AUTO) 49 % (42-75)
[2022-09-15 06:01] LABS: ALBUMIN 2.2 GM/DL (3.2-4.5); POTASSIUM 3.7 MMOL/L (3.6-5.0)
[2022-09-15 06:03] LABS: CALCIUM 7.4 MG/DL (8.5-10.1)
[2022-09-15 06:06] LABS: BILIRUBIN,TOTAL 0.6 MG/DL (0.1-1.0)
[2022-09-15 06:07] LABS: CREATININE SERUM 0.57 MG/DL (0.60-1.30)
[2022-09-15 06:22] LABS: PLATELET COUNT 27 10^3/uL (130-400); WHITE BLOOD COUNT 0.8 10^3/uL (4.3-11.0)
[2022-09-15 06:27] LABS: BAND NEUTROPHILS 6 %; EOSINOPHILS % (MANUAL) 1 %; LYMPHOCYTES % (MANUAL) 38 %; NEUTROPHILS % (MANUAL) 49 %
[2022-09-15 06:30] LABS: MONOCYTES % (MANUAL) 3 %; PROLYMPHOCYTE % 3 %
--- NOTE | 2022-09-15 07:25 | Progress Note - Surgery ---
JOCYHARSHA Newton 09/15/22 0725: Subjective Date Seen by a Provider: Sep 15, 2022 Time Seen by a Provider: 07:23 Subjective/Events-last exam Pt is s/p exp lap for small bowel perforation without complications post op day 7. 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 Pt continued fatigue. Pt ambulating with PT/OT. Pt is on dysphagia 2 diet. Has had increasing nausea. Wound is dry/clean without erythema. Pt denies any CP, SOB, vomiting, and coughing. No other complaints. Focused Exam Skin: normal color, warm/dry Objective Exam Vital Signs Date Time Temp Pulse Resp B/P (MAP) Pulse Ox O2 Delivery O2 Flow Rate FiO2 09/15/22 06:56 20 09/15/22 04:01 36.5 99 18 138/87 (104) 95 Nasal Cannula 2.00 09/14/22 23:30 37.0 100 20 130/85 (100) 96 Nasal Cannula 2.00 09/14/22 21:41 90 Nasal Cannula 2.00 09/14/22 20:00 Nasal Cannula 2.00 09/14/22 19:45 37.3 108 157/99 (118) Nasal Cannula 2.00 09/14/22 17:49 20 09/14/22 15:40 37.0 94 20 145/82 (103) 98 Nasal Cannula 2.00 2.00 09/14/22 15:38 37.0 94 20 145/82 98 Nasal Cannula 2.00 09/14/22 14:00 36.4 90 16 124/79 98 Nasal Cannula 2.00 09/14/22 13:47 36.6 92 16 125/80 98 Nasal Cannula 2.00 09/14/22 12:10 36.8 98 20 118/71 (87) 91 Nasal Cannula 2.00 09/14/22 09:09 96 Nasal Cannula 2.00 09/14/22 08:54 Nasal Cannula 2.00 09/14/22 08:23 35.7 99 20 146/89 (108) 97 Nasal Cannula 2.00 I & O 09/15/22 07:00 Intake Total 1768 ml Output Total 1600 ml Balance 168 ml Capillary Refill : Less Than 3 Seconds General Appearance: No Apparent Distress, Chronically ill, Thin HEENT: PERRL/EOMI, Normal ENT Inspection Neck: Non Tender, Supple Respiratory: Chest Non Tender, No Accessory Muscle Use, No Respiratory Distress Cardiovascular: Regular Rate, Rhythm, No JVD Peripheral Pulses: 3+ Radial Pulses (R), 3+ Radial Pulses (L) Gastrointestinal: distended (minimally), tenderness (diffuse), other (incision clean/dry/intact no signs infection) Extremity: Normal Capillary Refill, Non Tender Neurologic/Psychiatric: Alert, Oriented x3 Skin: Normal Color, Warm/Dry Lymphatic: No Adenopathy Results Lab Laboratory Tests 09/15/22 05:45: White Blood Count 0.8*L, Red Blood Count 2.90L, Hemoglobin 7.7L, Hematocrit 24L, Mean Corpuscular Volume 82, Mean Corpuscular Hemoglobin 27, Mean Corpuscular Hemoglobin Concent 32, Red Cell Distribution Width 14.3, Platelet Count 27*L, Mean Platelet Volume 8.7L, Immature Granulocyte % (Auto) 5, Neutrophils (%) (Auto) 49, Lymphocytes (%) (Auto) 35, Monocytes (%) (Auto) 9, Eosinophils (%) (Auto) 1, Basophils (%) (Auto) 1, Neutrophils # (Auto) 0.4L, Lymphocytes # (Auto) 0.3L, Monocytes # (Auto) 0.1, Eosinophils # (Auto) 0.0, Basophils # (Auto) 0.0, Immature Granulocyte # (Auto) 0.0, Neutrophils % (Manual) 49, Lymphocytes % (Manual) 38, Prolymphocyte % 3, Monocytes % (Manual) 3, Eosinophils % (Manual) 1, Band Neutrophils 6, Percent Immature Platelet Fraction 4.7, Sodium Level 131L, Potassium Level 3.7, Chloride Level 98, Carbon Dioxide Level 25, Anion Gap 8, Blood Urea Nitrogen 13, Creatinine 0.57L, Estimat Glomerular Filtration Rate 98, BUN/Creatinine Ratio 23, Glucose Level 88, Calcium Level 7.4L, Corrected Calcium 8.8, Total Bilirubin 0.6, Aspartate Amino Transf (AST/SGOT) 53H, Alanine Aminotransferase (ALT/SGPT) 25, Alkaline Phosphatase 29L, Total Protein 4.0L, Albumin 2.2L Assessment/Plan Assessment/Plan Assessment/Plan S/P exp lap for small bowel perforation post op day #4 Metastatic Lung Cancer Chemotherapy-induced Leukopenia Anemia Plan: Pain meds prn Zofran prn PT/OT Advance diet once pt has bowel movement Continue to monitor CLOVIS BANERJEE DO 09/15/22 1729: Subjective Subjective/Events-last exam Still with pain in abdomen, flatus no bm. Tolerating diet, but slight nausea at times. Ambulating. Pain controlled but still with pain diffusely. Objective Exam General Appearance: No Apparent Distress, Chronically ill HEENT: Normal ENT Inspection Neck: Non Tender, Supple Respiratory: Chest Non Tender, No Accessory Muscle Use, No Respiratory Distress Cardiovascular: Regular Rate, Rhythm, No JVD Gastrointestinal: distended (minimally), tenderness (diffuse), other (incision clean/dry/intact no signs infection) Extremity: Normal Capillary Refill, Non Tender Neurologic/Psychiatric: Alert, Oriented x3 Skin: Normal Color, Warm/Dry Lymphatic: No Adenopathy Assessment/Plan Assessment/Plan Assessment/Plan S/P exp lap for small bowel perforation post op day #4 Metastatic Lung Cancer Chemotherapy-induced Leukopenia Anemia Lovenox held due to low platelets IS Ambulate Zosyn Pain control Zofran prn PT/OT diet as tolerates Continue to monitor Supervisory-Addendum Brief Verification & Attestation Participated in pt care: history, MDM, physical Personally performed: exam, history, MDM, supervision of care Care discussed with: Medical Student Procedures: n/a Results interpretation: Verified all documentation Verification and Attestation of Medical Student E/M Service A medical student performed and documented this service in my presence. I reviewed and verified all information documented by the medical student and made modifications to such information, when appropriate. I personally performed the physical exam and medical decision making. Clovis Banerjee, Sep 15, 2022,17:29 HARSHA SANDRA Sep 15, 2022 07:25 CLOVIS BANERJEE DO Sep 15, 2022 17:29
[2022-09-15] MEDS: ONDANSETRON 4 MG/2 ML (SDV) Z0FRAN IVP PRN (07:46)
[2022-09-15 08:00] VITALS: BP 122/82
[2022-09-15] MEDS: lisINopril 40 MG (PRINIVIL) TABLET PO SCH (08:03)
[2022-09-15] MEDS: amLODIPine 5 MG (NORVASC) TAB PO SCH (08:03)
[2022-09-15] MEDS: PANTOPRAZOLE 40 MG (PROTONIX) TAB PO SCH (08:03)
[2022-09-15] MEDS: meTOprolol TARTRATE 50 MG (LOPRESSOR) TAB PO SCH ×2 (08:03→20:06)
[2022-09-15] MEDS: NICOTINE 14 MG (NICODERM) PATCH TD SCH (08:04)
[2022-09-15] MEDS: NICOTINE PATCH REMOVAL TP SCH (08:04)
--- NOTE | 2022-09-15 08:52 | Physical Therapy Daily Note ---
PT Daily Note-Current Subjective Patient agrees to PT. 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 Rarely or not at all 2. Occasionally 3. Frequently 4. Almost constantly 8. Unable to answer Pain Effect on Sleep: 2 Pain Interference with Therapy: 2 Pain Interference w/Day-to-Day: 2 Mental Status Patient Orientation: Normal For Age Attachments: Central Line, Oxygen Transfers SCALE: Activities may be completed with or without assistive devices. 4-Smotdcpujo-jwowpya completes the activity by him/herself with no assistance from a helper. 5-Set-up or Clean-up Assistance-helper sets up or cleans up; patient completes activity. [place] assists only prior to or following the activity. 4-Supervision or Touching Assistance-helper provides verbal cues and/or touching/steadying and/or contact guard assistance as patient completes activity. Assistance may be provided throughout the activity or intermittently. 3-Partial/Moderate Assistance-helper does LESS THAN HALF the effort. [place] lifts, holds or supports trunk or limbs, but provides less than half the effort. 2-Substantial/Maximal Assistance-helper does MORE THAN HALF the effort. [place] lifts or holds trunk or limbs and provides more than half the effort. 6-Gqxfkhrzn-izazcf does ALL the effort. Patient does none of the effort to complete the activity. Or, the assistance of 2 or more helpers is required for the patient to complete the activity. If activity was not attempted, code reason: 7-Patient Refused. 9-Not Applicable-not attempted and the patient did not perform the activity before the current illness, exacerbation or injury. 10-Not Attempted due to Environmental Limitations-(lack of equipment, weather restraints, etc.). 88-Not Attempted due to Medical Conditions or Safety Concerns. Lying to Sitting/Side of Bed(Q: 6 Sit to Stand (QC): 6 Chair/Oiq-kc-Jsqqn Xfer(QC): 5 Weight Bearing Full Weight Bearing Full Weight Bearing Gait Training Distance: >500' Walk 10 feet (QC): 5 Walk 50 ft with 2 Turns(QC): 5 Walk 150 ft (QC): 5 Gait Assistive Device: FWW steady gait sequence/PT assist for O2 tank and IV pole Exercises Seated Therapy Exercises: Ankle pumps, Long arc quads Seated Reps: 15 Assessment Patient is up in recliner with needs met. PT encouraged patient to ambulate PRN with nursing staff. Patient voices understanding. PT Group Home Goals Electrical Drafter Goals PT Group Home Goals Time Frame: Sep 30, 2022 Roll Left & Right (QC): 6 Sit to Lying (QC): 6 Lying-Sitting on Side/Bed(QC): 6 Sit to Stand (QC): 6 Chair/Bfb-in-Orwga Xfer(QC): 6 Toilet Transfer (QC): 6 Walk 10 feet (QC): 6 Walk 50ft with 2 Turns (QC): 6 Walk 150 ft (QC): 6 PT Plan Treatment/Plan Treatment Plan: Continue Plan of Care Treatment Plan: Bed Mobility, Education, Functional Activity Andra, Functional Strength, Gait, Safety, Therapeutic Exercise, Transfers Treatment Duration: Sep 30, 2022 Frequency: 6 times per week Estimated Hrs Per Day: .25 hour per day Patient and/or Family Agrees t: Yes Time Time In: 820 Time Out: 836 Total Billed Treatment Time: 16 Total Billed Treatment 1 visit FA 16 min ELISSA VALLE PT Sep 15, 2022 08:52
[2022-09-15] MEDS: TBO-FILGRASTIM 300 MCG/0.5 ML (GRANIX) SQ SCH (08:56)
[2022-09-15 11:31] VITALS: BP 120/77
--- NOTE | 2022-09-15 11:34 | Occupational Ther Daily Note ---
OT Current Status-Daily Note Subjective Pt in recliner, agreeable to OT tx. Pt requests to use bathroom. Mental Status/Objective Patient Orientation: Person, Place, Situation Attachments: IV ADL-Treatment Therapy Code Descriptions/Definitions Functional [place] Measure: 0=Not Assessed/NA 4=Minimal Assistance 1=Total Assistance 5=Supervision or Setup 2=Maximal Assistance 6=Modified [place] 3=Moderate Assistance 7=Complete IndependenceSCALE: Activities may be completed with or without assistive devices. 5-Vpmlareibk-jfxanvm completes the activity by him/herself with no assistance from a helper. 5-Set-up or Clean-up Assistance-helper sets up or cleans up; patient completes activity. [place] assists only prior to or following the activity. 4-Supervision or Touching Assistance-helper provides verbal cues and/or touching/steadying and/or contact guard assistance as patient completes activity. Assistance may be provided throughout the activity or intermittently. 3-Partial/Moderate Assistance-helper does LESS THAN HALF the effort. [place] lifts, holds or supports trunk or limbs, but provides less than half the effort. 2-Substantial/Maximal Assistance-helper does MORE THAN HALF the effort. [place] lifts or holds trunk or limbs and provides more than half the effort. 8-Owqvfwcjj-okahuv does ALL the effort. Patient does none of the effort to complete the activity. Or, the assistance of 2 or more helpers is required for the patient to complete the activity. If activity was not attempted, code reason: 7-Patient Refused. 9-Not Applicable-not attempted and the patient did not perform the activity before the current illness, exacerbation or injury. 10-Not Attempted due to Environmental Limitations-(lack of equipment, weather restraints, etc.). 88-Not Attempted due to Medical Conditions or Safety Concerns. Eating (QC): 6 (Per nursing report.) Toileting Hygiene (QC): 6 (IND with clothing management and hygiene.) Toilet Transfer (QC): 6 (IND on/off toilet.) Other Treatment Pt in recliner, agreeable to OT Tx. Pt used FWW to transfer into bathroom and onto toilet, OT only assisted with managing IV pole. Pt completed toileting independently, then transferred back to recliner using FWW, OT managing IV pole. Pt states she is fatigued, OT encouraged pt to continue with UE exercises throughout the day as tolerated, she verbalized understanding. Post tx, pt in recliner, call light in reach and all needs met. Education OT Patient Education: Correct positioning, Energy conservation, Modified ADL techniques, Progress toward Goal/Update tx plan, Purpose of tx/functional activities Teaching Recipient: Patient Teaching Methods: Discussion Response to Teaching: Verbalize Understanding OT Datastage Consultant Goals Datastage Consultant Goals Time Frame: Sep 29, 2022 Oral Hygiene (QC): 5 Toileting Hygiene (QC): 6 Shower/Bathe Self (QC): 4 Upper Body Dressing (QC): 5 Lower Body Dressing (QC): 4 On/Off Footwear (QC): 4 Additional Goals: 1-Demonstrate ADL Tasks, 2-Verbalize Understanding, 3- ImproveStrength/Andra 1=Demonstrate adherence to instructed precautions during ADL tasks. 2=Patient will verbalize/demonstrate understanding of assistive devices/modifications for ADL. 3=Patient will improve strength/tolerance for activity to enable patient to perform ADL's. OT Education/Plan Problem List/Assessment Assessment: Decreased Activ Tolerance, Decreased UE Strength, Impaired I ADL's, Impaired Self-Care Skills Discharge Recommendations Plan/Recommendations: Continue POC Treatment Plan/Plan of Care Patient would benefit from OT for education, treatment and training to promote independence in ADL's, mobility, safety and/or upper extremity function for ADL's. Plan of Care: ADL Retraining, Functional Mobility, UE Funct Exercise/Act Treatment Duration: Sep 29, 2022 Frequency: 3 times per week (3-5 times per week) Rehab Potential: Guarded Time/GCodes Start Time: 11:12 Stop Time: 11:22 Total Time Billed (hr/min): 10 Billed Treatment Time 1, EX RAMONE COVINGTON OT Sep 15, 2022 11:34
[2022-09-15] MEDS ORDERED: PATIENT MAY USE OWN MED,SINGLE MED PO SCH (12:45)
--- NOTE | 2022-09-15 14:18 | Progress Note ---
JORDANFERMÍN 09/15/22 1418: Subjective Date Seen by a Provider: Sep 15, 2022 Time Seen by a Provider: 14:13 Subjective/Events-last exam Pt is sitting in chair comfortably. Pt notes improvement of abd pain and distension. Denies BM but has continued to have flatus. Pt was moved to dysphagia 2 diet by surgery and has been tolerating well. Pt has been ambulating 2x daily with PT w/o issue. Pt notes improvement of her fatigue today. Continues to have an intermittent cough producing white moise mucus. Pt denies any nausea, vomiting, worsening CP or SOA. Review of Systems General: No Chills, No Night Sweats HEENT: No Head Aches, No Visual Changes Pulmonary: Cough; No Pleuritic Chest Pain Cardiovascular: No: Chest Pain, Palpitations Gastrointestinal: Abdominal Pain (improved); No: Nausea, Vomiting Genitourinary: No Dysuria, No Frequency Musculoskeletal: No: neck pain, shoulder pain 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: No: Weakness, Numbness Objective Exam Last Set of Vital Signs Vital Signs Date Time Temp Pulse Resp B/P (MAP) Pulse Ox O2 Delivery O2 Flow Rate FiO2 09/15/22 11:31 37.5 100 18 120/77 (91) 97 Nasal Cannula 2.00 09/12/22 15:22 28 Capillary Refill : Less Than 3 Seconds I&O Intake and Output 09/15/22 00:00 Intake Total 2068 ml Output Total 1550 ml Balance 518 ml Intake Oral 1432 ml IV Total 350 ml Other 286 ml Output Urine Total 1550 ml # Voids 3 General: Alert, Oriented X3, Cooperative HEENT: PERRLA, Mucous Memb Moist/[place] Neck: Supple, No Thyromegaly Lungs: Normal Air Movement, Other (Crackles present in R mid lung and base) Heart: No Murmurs, Other (tachycardic ) Abdomen: Normal Bowel Sounds, Soft, No Masses, Other (improvement of abd distension and tenderness) Extremities: No Edema Skin: No Rashes, Other (vertical midline surgical scar present, dry and pink ) Neuro: Normal Speech, Normal Tone Psych/Mental Status: Mental Status NL, Mood NL Results Lab Laboratory Tests 09/15/22 05:45: White Blood Count 0.8*L, Red Blood Count 2.90L, Hemoglobin 7.7L, Hematocrit 24L, Mean Corpuscular Volume 82, Mean Corpuscular Hemoglobin 27, Mean Corpuscular Hemoglobin Concent 32, Red Cell Distribution Width 14.3, Platelet Count 27*L, Mean Platelet Volume 8.7L, Immature Granulocyte % (Auto) 5, Neutrophils (%) (Auto) 49, Lymphocytes (%) (Auto) 35, Monocytes (%) (Auto) 9, Eosinophils (%) (Auto) 1, Basophils (%) (Auto) 1, Neutrophils # (Auto) 0.4L, Lymphocytes # (Auto) 0.3L, Monocytes # (Auto) 0.1, Eosinophils # (Auto) 0.0, Basophils # (Auto) 0.0, Immature Granulocyte # (Auto) 0.0, Neutrophils % (Manual) 49, Lymphocytes % (Manual) 38, Prolymphocyte % 3, Monocytes % (Manual) 3, Eosinophils % (Manual) 1, Band Neutrophils 6, Percent Immature Platelet Fraction 4.7, Sodium Level 131L, Potassium Level 3.7, Chloride Level 98, Carbon Dioxide Level 25, Anion Gap 8, Blood Urea Nitrogen 13, Creatinine 0.57L, Estimat Glomerular Filtration Rate 98, BUN/Creatinine Ratio 23, Glucose Level 88, Calcium Level 7.4L, Corrected Calcium 8.8, Total Bilirubin 0.6, Aspartate Amino Transf (AST/SGOT) 53H, Alanine Aminotransferase (ALT/SGPT) 25, Alkaline Phosphatase 29L, Total Protein 4.0L, Albumin 2.2L Assessment/Plan Assessment/Plan Assess & Plan/Chief Complaint 1. S/P exp lap for small bowel perforation post op day #3 -Wound is dry and intact 09/14: -Had flatus, no BM 09/15: -continues to have flatus, no BM -diet advanced to dysphagia 2 2. Metastatic Lung Cancer -Diagnosed on 08/03/22 >Mets to bone and L adrenal gland >Followed by Dr. Cast >1st chemotherapy completed on 09/07 3. Chemotherapy-induced Leukopenia -WBC decreased to 2.1 >pt is s/p chemotherapy on 09/06 09/12: -WBC decreased to 0.9 09/14: -WBC improved to 1.1 09/15: -WBC decreased to 0.8 4. Anemia -Hgb 6.9 on 09/11 >Transfused with 1U PRBCs 09/12: -Hgb improved to 8.6 following transfusion 09/14: -Hgb decreased to 6.6 >transfusion with 1U PRBCs ordered 09/15: -Hgb improved to 7.7 s/p transfusion of 1U PRBCs 5. Hyponatremia -given IV NS 500mls 09/15: -Na decreased to 131 6. Frail 7. Tobacco Abuse -current smoker 8. H/o Lymphoma 10. Chemotherapy-induced Thrombocytopenia 09/12: - Plt count decreased to 125 09/14: -Plt count decreased to 39 09/15: -Plt decreased to 27 Plan: Continue 300mg Granix daily till WBCs improve to 10 Pain meds prn PT/OT IV NS Fluids Monitor platelets Pt brought trelegy from home, start use in hospital PETRA JOHNSON DO 09/16/22 0534: Subjective Subjective/Events-last exam Patient doing really well Tolerating advanced diet White count and platelets and hemoglobin are still very low Supervisory-Addendum Brief Verification & Attestation Participated in pt care: history, MDM, physical Personally performed: exam, history, MDM, supervision of care Care discussed with: Medical Student Procedures: n/a Results interpretation: Verified all documentation Verification and Attestation of Medical Student E/M Service A medical student performed and documented this service in my presence. I reviewed and verified all information documented by the medical student and made modifications to such information, when appropriate. I personally performed the physical exam and medical decision making. Petra Johnson Sep 16, 2022,05:33 FERMÍN ORTEGA Sep 15, 2022 14:18 PETRA JOHNSON DO Sep 16, 2022 05:34
[2022-09-15] MEDS: TRELEGY ELLIPTA PO SCH (15:00)
[2022-09-15 15:46] VITALS: BP 121/74
[2022-09-15] MEDS ORDERED: PIPERACILLIN SODIUM/TAZOBACTAM 4.5 GM in NS (IVPB) 100 ML IV SCH (17:30)
[2022-09-15] MEDS ORDERED: PIPERACILLIN SODIUM/TAZOBACTAM 4.5 GM in NS (IVPB) 100 ML IV NR (18:00)
[2022-09-15 19:54] VITALS: BP 117/77
[2022-09-16] VITALS (11 sets, daily range): BP systolic 88–137; BP diastolic 55–84
[2022-09-16] MEDS: PIPERACILLIN SODIUM/TAZOBACTAM 4.5 GM in NS (IVPB) 100 ML IV SCH ×4 (00:09→23:51)
[2022-09-16] MEDS: RT-ALBUTEROL/IPRATROPIUM 3 ML (DUONEB) VIAL INH PRN (00:22)
[2022-09-16 05:55] LABS: BASOPHILS % (AUTO) 0 % (0-10); EOSINOPHILS % (AUTO) 0 % (0-10)
[2022-09-16 05:57] LABS: LYMPHOCYTES # (AUTO) 0.3 10^3/uL (1.0-4.0); LYMPHOCYTES % (AUTO) 40 % (12-44); MEAN CORPUSCULAR HEMOGLOBIN 26 pg (25-34); MEAN CORPUSCULAR HGB CONC 32 g/dL (32-36); MEAN CORPUSCULAR VOLUME 81 fL (80-99); MONOCYTES # (AUTO) 0.2 10^3/uL (0.0-1.0); MONOCYTES % (AUTO) 22 % (0-12); NEUTROPHILS # (AUTO) 0.3 10^3/uL (1.8-7.8); NEUTROPHILS % (AUTO) 37 % (42-75)
[2022-09-16 06:24] LABS: ALBUMIN 2.1 GM/DL (3.2-4.5); POTASSIUM 3.1 MMOL/L (3.6-5.0)
[2022-09-16 06:25] LABS: CALCIUM 7.1 MG/DL (8.5-10.1)
[2022-09-16 06:26] LABS: TOTAL PROTEIN 3.8 GM/DL (6.4-8.2)
[2022-09-16 06:28] LABS: BILIRUBIN,TOTAL 0.5 MG/DL (0.1-1.0)
[2022-09-16 06:30] LABS: CREATININE SERUM 0.67 MG/DL (0.60-1.30)
[2022-09-16 06:32] LABS: HEMATOCRIT 20 % (35-52); HEMOGLOBIN 6.5 g/dL (11.5-16.0); WHITE BLOOD COUNT 0.7 10^3/uL (4.3-11.0)
[2022-09-16 06:33] LABS: PLATELET COUNT 17 10^3/uL (130-400)
--- NOTE | 2022-09-16 08:09 | Progress Note ---
Subjective Date Seen by a Provider: Sep 16, 2022 Time Seen by a Provider: 11:00 Subjective/Events-last exam Patient doing well No pain currently Had a BM Eating a little bit more White blood cell count still low Giving 1 unit of blood today Holding Lovenox Review of Systems General: Fatigue, Malaise Objective Exam Last Set of Vital Signs Vital Signs Date Time Temp Pulse Resp B/P (MAP) Pulse Ox O2 Delivery O2 Flow Rate FiO2 09/16/22 06:00 20 09/16/22 04:00 36.5 115 114/70 (85) 95 Nasal Cannula 3.00 09/12/22 15:22 28 Capillary Refill : Less Than 3 Seconds I&O Intake and Output 09/16/22 00:00 Intake Total 1300 ml Output Total 600 ml Balance 700 ml Intake Oral 1300 ml Output Urine Total 600 ml # Voids 4 General: Alert, Oriented X3, Cooperative, No Acute Distress Lungs: Clear to Auscultation, Normal Air Movement Heart: Regular Rate, Normal S1, Normal S2, No Murmurs Psych/Mental Status: Mental Status NL, Mood NL Results Lab Laboratory Tests 09/16/22 05:42: White Blood Count 0.7*L, Red Blood Count 2.50L, Hemoglobin 6.5*L, Hematocrit 20*L, Mean Corpuscular Volume 81, Mean Corpuscular Hemoglobin 26, Mean Corpuscular Hemoglobin Concent 32, Red Cell Distribution Width 14.5, Platelet Count 17*L, Mean Platelet Volume , Immature Granulocyte % (Auto) 0, Neutrophils (%) (Auto) 37L, Lymphocytes (%) (Auto) 40, Monocytes (%) (Auto) 22H, Eosinophils (%) (Auto) 0, Basophils (%) (Auto) 0, Neutrophils # (Auto) 0.3L, Lymphocytes # (Auto) 0.3L, Monocytes # (Auto) 0.2, Eosinophils # (Auto) 0.0, Basophils # (Auto) 0.0, Immature Granulocyte # (Auto) 0.0, Percent Immature Platelet Fraction 4.8, Sodium Level 129L, Potassium Level 3.1L, Chloride Level 96L, Carbon Dioxide Level 24, Anion Gap 9, Blood Urea Nitrogen 11, Creatinine 0.67, Estimat Glomerular Filtration Rate 94, BUN/Creatinine Ratio 16, Glucose Level 106H, Calcium Level 7.1L, Corrected Calcium 8.6, Total Bilirubin 0.5, Aspartate Amino Transf (AST/SGOT) 31, Alanine Aminotransferase (ALT/SGPT) 21, Alkaline Phosphatase 31L, Total Protein 3.8L, Albumin 2.1L Assessment/Plan Assessment/Plan Assess & Plan/Chief Complaint Much improved Replace potassium Transfuse Monitor closely DUKE JOHNSON DO Sep 16, 2022 08:09
--- NOTE | 2022-09-16 08:55 | Progress Note - Surgery ---
LETY RAINEY 09/16/22 0855: Subjective Date Seen by a Provider: Sep 16, 2022 Subjective/Events-last exam POD8 small bowel resection. Pt is lying in bed comfortably after just waking up. She reports she slept better last night than she has since she was admitted. 2/10 abdominal pain currently, improved from yesterday. Pt reports having a BM around 3am. It was dark brown and soft. She denies any dysuria or hematuria. She reports no N/V this AM. She is able to ambulate and is using Incentive spirometer approximately 10 times per day. Tolerating soft diet with nausea yes terday, none so far today. Incision is clean, dry and intact. Pt reports mild itching at staple sites. Review of Systems General: Chills; No Night Sweats HEENT: No Head Aches, No Visual Changes Pulmonary: No Dyspnea Cardiovascular: No: Chest Pain, Lt Headedness Gastrointestinal: Nausea (none reported today, mild nausea yesterday.), Abdominal Pain (2/10); No: Vomiting Genitourinary: No Dysuria, No Hematuria 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: No: Confusion Objective Exam Vital Signs Date Time Temp Pulse Resp B/P (MAP) Pulse Ox O2 Delivery O2 Flow Rate FiO2 09/16/22 08:15 36.9 100 18 137/82 (100) 97 Nasal Cannula 3.00 09/16/22 06:00 20 09/16/22 04:00 36.5 115 16 114/70 (85) 95 Nasal Cannula 3.00 09/16/22 02:40 37.4 09/16/22 00:26 38.1 103 18 131/77 (95) 90 High Flow N/C 2.00 09/16/22 00:22 92 Nasal Cannula 2.00 09/15/22 20:00 Nasal Cannula 2.00 09/15/22 19:54 37.5 107 18 117/77 (90) 96 Nasal Cannula 2.00 09/15/22 17:56 37.2 09/15/22 17:53 20 09/15/22 15:46 38.1 109 18 121/74 (90) 93 Nasal Cannula 2.00 09/15/22 11:31 37.5 100 18 120/77 (91) 97 Nasal Cannula 2.00 I & O 09/16/22 07:00 Intake Total 1700 ml Balance 1700 ml Capillary Refill : Less Than 3 Seconds General Appearance: No Apparent Distress, Chronically ill HEENT: PERRL/EOMI; No Scleral Icterus (L), No Scleral Icterus (R) Neck: Non Tender, Supple Respiratory: Chest Non Tender, No Accessory Muscle Use, No Respiratory Distress, Wheezing (mild inspiratory wheeze on left side) Cardiovascular: Normal Peripheral Pulses, Tachycardia Peripheral Pulses: 2+ Radial Pulses (R), 2+ Radial Pulses (L) Gastrointestinal: distended (minimally, improved from yesterday), tenderness (diffuse), other (incision clean/dry/intact no signs infection) Extremity: Normal Capillary Refill, Non Tender Neurologic/Psychiatric: Alert, Oriented x3 Skin: Normal Color, Warm/Dry Results Lab Laboratory Tests 09/16/22 05:42: White Blood Count 0.7*L, Red Blood Count 2.50L, Hemoglobin 6.5*L, Hematocrit 20*L, Mean Corpuscular Volume 81, Mean Corpuscular Hemoglobin 26, Mean Corpuscular Hemoglobin Concent 32, Red Cell Distribution Width 14.5, Platelet Count 17*L, Mean Platelet Volume , Immature Granulocyte % (Auto) 0, Neutrophils (%) (Auto) 37L, Lymphocytes (%) (Auto) 40, Monocytes (%) (Auto) 22H, Eosinophils (%) (Auto) 0, Basophils (%) (Auto) 0, Neutrophils # (Auto) 0.3L, Lymphocytes # (Auto) 0.3L, Monocytes # (Auto) 0.2, Eosinophils # (Auto) 0.0, Basophils # (Auto) 0.0, Immature Granulocyte # (Auto) 0.0, Percent Immature Platelet Fraction 4.8, Sodium Level 129L, Potassium Level 3.1L, Chloride Level 96L, Carbon Dioxide Level 24, Anion Gap 9, Blood Urea Nitrogen 11, Creatinine 0.67, Estimat Glomerular Filtration Rate 94, BUN/Creatinine Ratio 16, Glucose Level 106H, Calcium Level 7.1L, Corrected Calcium 8.6, Magnesium Level 1.5L, Total Bilirubin 0.5, Aspartate Amino Transf (AST/SGOT) 31, Alanine Aminotransferase (ALT/SGPT) 21, Alkaline Phosphatase 31L, Total Protein 3.8L, Albumin 2.1L Assessment/Plan Assessment/Plan Assessment/Plan SP ex lap with small bowel resection POD8 metastatic cancer Pancytopenia Nausea Wound is clean, dry, and intact. BM this AM. Continue pain control prn. PT to ambulate. IV fluids. Continue zofran as needed. Monitor CBCs serially. WBC, HgB, and Platelets remain low today, continue Granix and monitor. Another unit will be given today due to Hgb of 6.5 STEF ESQUEDA DO 09/16/221809: Subjective Time Seen by a Provider: 11:59 Subjective/Events-last exam Pt seen and examined, states she is doing much better and having multiple BMs. Review of Systems General: Chills; No Night Sweats Pulmonary: No Dyspnea Cardiovascular: No: Chest Pain Gastrointestinal: Nausea (none reported today, mild nausea yesterday.), Abdominal Pain (2/10); No: Vomiting Objective Exam General Appearance: No Apparent Distress, Chronically ill HEENT: PERRL/EOMI; No Scleral Icterus (L), No Scleral Icterus (R) Respiratory: Chest Non Tender, No Accessory Muscle Use, No Respiratory Distress, Wheezing (mild inspiratory wheeze on left side) Cardiovascular: No Murmur, Tachycardia Gastrointestinal: soft, distended (minimal, improved compared to yesterday), tenderness (diffuse but only with deep palpation), other (incision clean/dry/intact no signs infection) Neurologic/Psychiatric: Alert, Oriented x3 Assessment/Plan Assessment/Plan Assessment/Plan SP ex lap with small bowel resection POD8 metastatic cancer Anemia - pt currently getting transfused Nausea Wound is clean, dry, and intact. BM this AM. Continue pain control prn. PT to ambulate. IV fluids. Continue zofran as needed. Monitor CBCs serially. WBC, HgB, and Platelets remain low today, continue Granix and monitor. Another unit will be given today due to Hgb of 6.5 Supervisory-Addendum Brief Verification & Attestation Participated in pt care: history, MDM, physical Personally performed: exam, history, MDM, supervision of care Care discussed with: Medical Student Procedures: n/a Verification and Attestation of Medical Student E/M Service A medical student performed and documented this service. I then reviewed and verified all information documented by the medical student and made modifications to such information, when appropriate. I personally performed a physical exam, medical decision making and then discussed any differences between the notes and made revisions as necessary to create one note. Stef Esqueda , 09/16/22 , 18:10 LETY RAINEY Sep 16, 2022 08:55 STEF ESQUEDA DO Sep 16, 2022 18:10
[2022-09-16] MEDS: POTASSIUM CL 10MEQ/50ML IVPB 50 ML IV SCH ×8 (09:15→20:18)
[2022-09-16] MEDS: NICOTINE 14 MG (NICODERM) PATCH TD SCH (09:16)
[2022-09-16] MEDS: MAGNESIUM 1 GM/100 ML IVPB 100 ML IV SCH ×3 (09:16→10:36)
[2022-09-16] MEDS: meTOprolol TARTRATE 50 MG (LOPRESSOR) TAB PO SCH ×2 (09:17→20:18)
[2022-09-16] MEDS: amLODIPine 5 MG (NORVASC) TAB PO SCH (09:17)
[2022-09-16] MEDS: PANTOPRAZOLE 40 MG (PROTONIX) TAB PO SCH (09:17)
[2022-09-16] MEDS: lisINopril 40 MG (PRINIVIL) TABLET PO SCH (09:17)
[2022-09-16] MEDS: TRELEGY ELLIPTA PO SCH (09:28)
[2022-09-16] MEDS: TBO-FILGRASTIM 300 MCG/0.5 ML (GRANIX) SQ SCH (09:40)
[2022-09-16] MEDS: ONDANSETRON 4 MG/2 ML (SDV) Z0FRAN IVP PRN (09:40)
[2022-09-16] MEDS: NICOTINE PATCH REMOVAL TP SCH (09:43)
[2022-09-16] MEDS ORDERED: NS IV 500 ML 500 ML ONE (10:32)
--- NOTE | 2022-09-16 10:45 | Physical Therapy Daily Note ---
PT Daily Note-Current Subjective Pt sitting up in bed upon arrival, agreeable to PT treatment at this time. She denies pain currently. Pain Section J - Health Conditions 1. Rarely or not at all 2. Occasionally 3. Frequently 4. Almost constantly 8. Unable to answer Pain Effect on Sleep: 2 Pain Interference with Therapy: 2 Pain Interference w/Day-to-Day: 2 Appearance Following session, pt up in chair with call light, tray table, and phone wihtin reach. All needs met. RN present in room Mental Status Patient Orientation: Person, Place, Time, Situation Attachments: Central Line, Oxygen (2.5L), IV (COKE OVEN PATCHER) Transfers SCALE: Activities may be completed with or without assistive devices. 4-Itzoddrhil-lpouqfx completes the activity by him/herself with no assistance from a helper. 5-Set-up or Clean-up Assistance-helper sets up or cleans up; patient completes activity. [place] assists only prior to or following the activity. 4-Supervision or Touching Assistance-helper provides verbal cues and/or touching/steadying and/or contact guard assistance as patient completes activity. Assistance may be provided throughout the activity or intermittently. 3-Partial/Moderate Assistance-helper does LESS THAN HALF the effort. Hercules lifts, holds or supports trunk or limbs, but provides less than half the effort. 2-Substantial/Maximal Assistance-helper does MORE THAN HALF the effort. [place] lifts or holds trunk or limbs and provides more than half the effort. 5-Vpfxsrqgx-ntbakt does ALL the effort. Patient does none of the effort to complete the activity. Or, the assistance of 2 or more helpers is required for the patient to complete the activity. If activity was not attempted, code reason: 7-Patient Refused. 9-Not Applicable-not attempted and the patient did not perform the activity before the current illness, exacerbation or injury. 10-Not Attempted due to Environmental Limitations-(lack of equipment, weather restraints, etc.). 88-Not Attempted due to Medical Conditions or Safety Concerns. Lying to Sitting/Side of Bed(Q: 6 Sit to Stand (QC): 6 Weight Bearing Full Weight Bearing Full Weight Bearing Gait Training Distance: >500' Walk 150 ft (QC): 5 Gait Assistive Device: FWW Assessment Current Status: Good Progress Pt tolerated very well, steady gait with no LOB PT Custodial Goals Design Leader Goals PT Design Leader Goals Time Frame: Sep 30, 2022 Roll Left & Right (QC): 6 Sit to Lying (QC): 6 Lying-Sitting on Side/Bed(QC): 6 Sit to Stand (QC): 6 Chair/Vbu-we-Ocqtt Xfer(QC): 6 Toilet Transfer (QC): 6 Walk 10 feet (QC): 6 Walk 50ft with 2 Turns (QC): 6 Walk 150 ft (QC): 6 PT Plan Problem List Problem List: Activity Tolerance, Functional Strength, Safety, Balance, Gait, Transfer, Bed Mobility, ROM Treatment/Plan Treatment Plan: Continue Plan of Care Treatment Plan: Bed Mobility, Education, Functional Activity Andra, Functional Strength, Gait, Safety, Therapeutic Exercise, Transfers Treatment Duration: Sep 30, 2022 Frequency: 6 times per week Estimated Hrs Per Day: .25 hour per day Patient and/or Family Agrees t: Yes Time Time In: 1020 Time Out: 1037 Total Billed Treatment 1 visit GT (17') LEIGH CORNEJO PT Sep 16, 2022 10:44
[2022-09-16] MEDS: RT-ALBUTEROL/IPRATROPIUM 3 ML (DUONEB) VIAL INH SCH ×3 (15:05→22:19)
[2022-09-16] MEDS: morphine PCA 100 MG/100 ML BAG IV PRN (20:18)
[2022-09-17 00:31] VITALS: BP 121/69
[2022-09-17 04:23] VITALS: BP 146/88
--- NOTE | 2022-09-17 06:27 | Progress Note ---
Subjective Date Seen by a Provider: Sep 17, 2022 Time Seen by a Provider: 12:30 Subjective/Events-last exam Patient doing much better No longer needs a nicotine patch Sister at the bedside White blood cell count is improving but platelets are still dangerously low Hemoglobin stable Review of Systems General: Fatigue, Malaise Gastrointestinal: Abdominal Pain Objective Exam Last Set of Vital Signs Vital Signs Date Time Temp Pulse Resp B/P (MAP) Pulse Ox O2 Delivery O2 Flow Rate FiO2 09/17/22 04:23 36.7 94 18 146/88 (107) 95 High Flow N/C 2.50 09/12/22 15:22 28 Capillary Refill : Less Than 3 Seconds I&O Intake and Output 09/17/22 00:00 Intake Total 2280 ml Balance 2280 ml Intake Oral 1410 ml IV Total 600 ml Other 270 ml # Voids 7 # Bowel Movements 5 General: Alert, Oriented X3, Cooperative, No Acute Distress Lungs: Clear to Auscultation, Normal Air Movement Heart: Regular Rate, Normal S1, Normal S2, No Murmurs Psych/Mental Status: Mental Status NL, Mood NL Results Lab Laboratory Tests 09/17/22 05:55: Assessment/Plan Assessment/Plan Assess & Plan/Chief Complaint Much improved Replace potassium Transfuse Monitor closely DUKE JOHNSON DO Sep 17, 2022 06:27
[2022-09-17 06:36] LABS: ALBUMIN 2.1 GM/DL (3.2-4.5)
[2022-09-17 06:37] LABS: POTASSIUM 3.9 MMOL/L (3.6-5.0)
[2022-09-17 06:38] LABS: CALCIUM 7.1 MG/DL (8.5-10.1)
[2022-09-17 06:39] LABS: TOTAL PROTEIN 3.8 GM/DL (6.4-8.2)
[2022-09-17 06:40] LABS: BASOPHILS % (AUTO) 1 % (0-10)
[2022-09-17 06:41] LABS: BILIRUBIN,TOTAL 0.5 MG/DL (0.1-1.0)
[2022-09-17 06:42] LABS: EOSINOPHILS % (AUTO) 0 % (0-10); HEMATOCRIT 25 % (35-52); HEMOGLOBIN 8.2 g/dL (11.5-16.0); LYMPHOCYTES # (AUTO) 0.4 10^3/uL (1.0-4.0); LYMPHOCYTES % (AUTO) 26 % (12-44); MEAN CORPUSCULAR HEMOGLOBIN 27 pg (25-34); MEAN CORPUSCULAR HGB CONC 33 g/dL (32-36); MEAN CORPUSCULAR VOLUME 84 fL (80-99); MONOCYTES # (AUTO) 0.2 10^3/uL (0.0-1.0); MONOCYTES % (AUTO) 11 % (0-12); NEUTROPHILS % (AUTO) 62 % (42-75); WHITE BLOOD COUNT 1.6 10^3/uL (4.3-11.0)
[2022-09-17 06:43] LABS: CREATININE SERUM 0.65 MG/DL (0.60-1.30)
[2022-09-17 07:17] LABS: PLATELET COUNT 12 10^3/uL (130-400)
[2022-09-17] MEDS: PIPERACILLIN SODIUM/TAZOBACTAM 4.5 GM in NS (IVPB) 100 ML IV SCH ×3 (07:52→23:29)
[2022-09-17 08:00] VITALS: BP 135/93
[2022-09-17] MEDS: NICOTINE 14 MG (NICODERM) PATCH TD SCH ×2 (08:53→08:57)
--- NOTE | 2022-09-17 08:53 | Progress Note - Surgery ---
LETY RAINEY 09/17/22 0853: Subjective Date Seen by a Provider: Sep 17, 2022 Subjective/Events-last exam Pt is lying in bed eating breakfast. She reports sleeping ok overnight. 2/10 abdominal pain describes as soreness around incision site. Pt denies any N/V, last BM was 3am 09/16. Pt reports passing a lot of gas yesterday. Was able to ambulate 2x yesterday. No dysuria or hematuria. Spirometer use every 2-3 hours according to patient. She reports cough with slight shortness of breath. Denies CP, fever, or chills. Review of Systems General: No Chills, No Night Sweats Pulmonary: Cough, Other (mild soa reported especially after coughing) Cardiovascular: No: Chest Pain, Lt Headedness Gastrointestinal: Abdominal Pain (2/10 around incision); No: Nausea, Vomiting Genitourinary: No Dysuria, No Hematuria 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: No: Change in speech, Confusion Objective Exam Vital Signs Date Time Temp Pulse Resp B/P (MAP) Pulse Ox O2 Delivery O2 Flow Rate FiO2 09/17/22 08:00 37.5 97 16 135/93 (107) 95 09/17/22 07:55 95 High Flow N/C 2.50 09/17/22 06:00 18 09/17/22 04:23 36.7 94 18 146/88 (107) 95 High Flow N/C 2.50 09/17/22 00:31 36.8 93 18 121/69 (86) 94 High Flow N/C 2.50 09/16/22 20:48 36.4 18 09/16/22 20:31 18 09/16/22 20:18 36.4 18 09/16/22 20:00 Nasal Cannula 2.00 09/16/22 19:38 36.4 109 18 129/84 (99) 93 Nasal Cannula 2.50 09/16/22 18:16 18 09/16/22 15:59 36.5 109 18 105/69 (81) 96 Nasal Cannula 2.50 09/16/22 15:57 36.5 109 18 105/69 (81) 96 Room Air 09/16/22 15:06 94 Nasal Cannula 2.00 09/16/22 13:58 36.5 102 99 09/16/22 13:46 36.5 102 20 109/74 Nasal Cannula 10/29/22 12:10 36.2 87 18 100/62 (75) 99 Nasal Cannula 3.00 09/16/22 11:30 36.9 100 20 100/62 Nasal Cannula 3.00 09/16/22 11:13 36.4 88 20 88/55 97 Nasal Cannula 3.00 09/16/22 08:50 99 Nasal Cannula 3.00 I & O 09/17/22 07:00 Intake Total 1880 ml Balance 1880 ml Capillary Refill : Less Than 3 Seconds General Appearance: No Apparent Distress, Chronically ill HEENT: PERRL/EOMI; No Scleral Icterus (L), No Scleral Icterus (R) Neck: Non Tender, Supple Respiratory: Chest Non Tender, No Accessory Muscle Use, No Respiratory Distress Cardiovascular: Regular Rate, Rhythm (HR 94 this am, no tachycardia overnight), No Murmur Peripheral Pulses: 2+ Radial Pulses (R), 2+ Radial Pulses (L) Gastrointestinal: soft, distended (minimal, improved compared to yesterday), tenderness (diffuse with deep palpation), other (incision clean/dry/intact no signs infection, minimal erythema around incision) Extremity: Normal Capillary Refill, Non Tender Neurologic/Psychiatric: Alert, Oriented x3 Skin: Normal Color, Warm/Dry Results Lab Laboratory Tests 09/17/22 05:55: White Blood Count 1.6L, Red Blood Count 3.01L, Hemoglobin 8.2#L, Hematocrit 25L, Mean Corpuscular Volume 84, Mean Corpuscular Hemoglobin 27, Mean Corpuscular Hemoglobin Concent 33, Red Cell Distribution Width 15.1H, Platelet Count 12*L, Mean Platelet Volume , Immature Granulocyte % (Auto) 0, Neutrophils (%) (Auto) 62, Lymphocytes (%) (Auto) 26, Monocytes (%) (Auto) 11, Eosinophils (%) (Auto) 0, Basophils (%) (Auto) 1, Neutrophils # (Auto) 1.0L, Lymphocytes # (Auto) 0.4L, Monocytes # (Auto) 0.2, Eosinophils # (Auto) 0.0, Basophils # (Auto) 0.0, Immature Granulocyte # (Auto) 0.0, Percent Immature Platelet Fraction 7.2, Sodium Level 130L, Potassium Level 3.9, Chloride Level 99, Carbon Dioxide Level 25, Anion Gap 6, Blood Urea Nitrogen 7, Creatinine 0.65, Estimat Glomerular Filtration Rate 95, BUN/Creatinine Ratio 11, Glucose Level 104, Calcium Level 7.1L, Corrected Calcium 8.6, Total Bilirubin 0.5, Aspartate Amino Transf (AST/SGOT) 17, Alanine Aminotransferase (ALT/SGPT) 19, Alkaline Phosphatase 35L, Total Protein 3.8L, Albumin 2.1L Assessment/Plan Assessment/Plan Assessment/Plan SP ex lap with small bowel resection POD9 metastatic cancer Anemia - pt transfused yesterday, current hgb 8.2 from 6.5 Nausea Wound is clean, dry, and intact minimal erythema noted around incision. BM 09/16 AM. Continue pain control prn. PT to ambulate. IV fluids. Continue zofran as needed. Monitor CBCs serially. WBC, HgB, and Platelets remain low today, continue Granix and monitor. STEF ESQUEDA DO 09/17/22 1440: Subjective Time Seen by a Provider: 13:32 Subjective/Events-last exam Pt seen and examined, no changes. Tolerating diet and pain controlled Review of Systems General: No Chills, No Night Sweats Pulmonary: Cough, Other (mild soa reported especially after coughing) Cardiovascular: No: Chest Pain Gastrointestinal: Abdominal Pain (2/10 around incision); No: Nausea, Vomiting Genitourinary: No Dysuria, No Hematuria Objective Exam General Appearance: No Apparent Distress, Chronically ill HEENT: PERRL/EOMI Respiratory: Chest Non Tender, No Accessory Muscle Use, No Respiratory Distress Cardiovascular: Regular Rate, Rhythm (HR 94 this am, no tachycardia overnight), No Murmur Gastrointestinal: soft, distended (minimal, improved compared to yesterday), tenderness (diffuse with deep palpation), other (incision clean/dry/intact no signs infection, minimal erythema around incision) Assessment/Plan Assessment/Plan Assessment/Plan SP ex lap with small bowel resection POD9 metastatic cancer Anemia - pt transfused yesterday, current hgb 8.2 from 6.5 Nausea Wound is clean, dry, and intact minimal erythema noted around incision. BM 09/16 AM. Continue pain control prn. PT to ambulate. IV fluids. Continue zofran as needed. Monitor CBCs serially. WBC, HgB, and Platelets remain low today, continue Granix and monitor. Supervisory-Addendum Brief Verification & Attestation Participated in pt care: history, MDM, physical Personally performed: exam, history, MDM, supervision of care Care discussed with: Medical Student Procedures: n/a Verification and Attestation of Medical Student E/M Service A medical student performed and documented this service. I then reviewed and verified all information documented by the medical student and made modifications to such information, when appropriate. I personally performed a physical exam, medical decision making and then discussed any differences between the notes and made revisions as necessary to create one note. Stef Esqueda , 09/17/22 , 14:40 LETY RAINEY Sep 17, 2022 08:53 STEF ESQUEDA DO Sep 17, 2022 14:40
[2022-09-17] MEDS: lisINopril 40 MG (PRINIVIL) TABLET PO SCH (08:56)
[2022-09-17] MEDS: NICOTINE PATCH REMOVAL TP SCH (08:56)
[2022-09-17] MEDS: PANTOPRAZOLE 40 MG (PROTONIX) TAB PO SCH (08:56)
[2022-09-17] MEDS: amLODIPine 5 MG (NORVASC) TAB PO SCH (08:56)
[2022-09-17] MEDS: meTOprolol TARTRATE 50 MG (LOPRESSOR) TAB PO SCH ×2 (08:56→20:14)
[2022-09-17] MEDS: TRELEGY ELLIPTA PO SCH (08:57)
[2022-09-17] MEDS: TBO-FILGRASTIM 300 MCG/0.5 ML (GRANIX) SQ SCH (09:14)
[2022-09-17] MEDS: RT-ALBUTEROL/IPRATROPIUM 3 ML (DUONEB) VIAL INH SCH ×4 (09:26→21:45)
[2022-09-17 11:59] VITALS: BP 138/81
[2022-09-17 16:00] VITALS: BP 125/79
[2022-09-17 19:02] VITALS: BP 141/79
[2022-09-18] VITALS (7 sets, daily range): BP systolic 125–151; BP diastolic 70–92
[2022-09-18] MEDS: RT-ALBUTEROL/IPRATROPIUM 3 ML (DUONEB) VIAL INH SCH ×4 (02:40→19:40)
[2022-09-18 05:21] LABS: BASOPHILS % (AUTO) 1 % (0-10); EOSINOPHILS % (AUTO) 0 % (0-10); HEMATOCRIT 26 % (35-52); HEMOGLOBIN 8.4 g/dL (11.5-16.0); LYMPHOCYTES # (AUTO) 0.4 10^3/uL (1.0-4.0); LYMPHOCYTES % (AUTO) 13 % (12-44); MEAN CORPUSCULAR HEMOGLOBIN 28 pg (25-34); MEAN CORPUSCULAR HGB CONC 33 g/dL (32-36); MEAN CORPUSCULAR VOLUME 83 fL (80-99); MONOCYTES # (AUTO) 0.4 10^3/uL (0.0-1.0); MONOCYTES % (AUTO) 11 % (0-12); NEUTROPHILS # (AUTO) 2.2 10^3/uL (1.8-7.8); NEUTROPHILS % (AUTO) 65 % (42-75); WHITE BLOOD COUNT 3.4 10^3/uL (4.3-11.0)
[2022-09-18 05:28] LABS: PLATELET COUNT 20 10^3/uL (130-400)
[2022-09-18 05:45] LABS: ALBUMIN 2.4 GM/DL (3.2-4.5); BILIRUBIN,TOTAL 0.5 MG/DL (0.1-1.0); CALCIUM 7.8 MG/DL (8.5-10.1); CREATININE SERUM 0.68 MG/DL (0.60-1.30); POTASSIUM 3.3 MMOL/L (3.6-5.0)
--- NOTE | 2022-09-18 05:48 | Progress Note ---
Subjective Date Seen by a Provider: Sep 18, 2022 Time Seen by a Provider: 09:00 Subjective/Events-last exam Pt is doing dramatically better White count is 3.4 Hemoglobin is 8.4 Platelet count is 20 Potassium still low at 3.3, will initiate 20 meq TID PO Review of Systems General: Fatigue, Malaise Gastrointestinal: Abdominal Pain Objective Exam Last Set of Vital Signs Vital Signs Date Time Temp Pulse Resp B/P (MAP) Pulse Ox O2 Delivery O2 Flow Rate FiO2 09/18/22 05:26 20 09/18/22 04:09 37.2 106 133/92 (106) 94 Nasal Cannula 3.00 09/12/22 15:22 28 Capillary Refill : Less Than 3 Seconds I&O Intake and Output 09/18/22 00:00 Intake Total 1821 ml Balance 1821 ml Intake Oral 1721 ml IV Total 100 ml # Voids 16 # Bowel Movements 3 General: Alert, Oriented X3, Cooperative, No Acute Distress Lungs: Clear to Auscultation, Normal Air Movement Heart: Regular Rate, Normal S1, Normal S2, No Murmurs Psych/Mental Status: Mental Status NL, Mood NL Results Lab Laboratory Tests 09/17/22 05:55: White Blood Count 1.6L, Red Blood Count 3.01L, Hemoglobin 8.2#L, Hematocrit 25L, Mean Corpuscular Volume 84, Mean Corpuscular Hemoglobin 27, Mean Corpuscular Hemoglobin Concent 33, Red Cell Distribution Width 15.1H, Platelet Count 12*L, Mean Platelet Volume , Immature Granulocyte % (Auto) 0, Neutrophils (%) (Auto) 62, Lymphocytes (%) (Auto) 26, Monocytes (%) (Auto) 11, Eosinophils (%) (Auto) 0, Basophils (%) (Auto) 1, Neutrophils # (Auto) 1.0L, Lymphocytes # (Auto) 0.4L, Monocytes # (Auto) 0.2, Eosinophils # (Auto) 0.0, Basophils # (Auto) 0.0, Immature Granulocyte # (Auto) 0.0, Percent Immature Platelet Fraction 7.2, Sodium Level 130L, Potassium Level 3.9, Chloride Level 99, Carbon Dioxide Level 25, Anion Gap 6, Blood Urea Nitrogen 7, Creatinine 0.65, Estimat Glomerular Filtration Rate 95, BUN/Creatinine Ratio 11, Glucose Level 104, Calcium Level 7.1L, Corrected Calcium 8.6, Total Bilirubin 0.5, Aspartate Amino Transf (AST/SGOT) 17, Alanine Aminotransferase (ALT/SGPT) 19, Alkaline Phosphatase 35L, Total Protein 3.8L, Albumin 2.1L 09/17/22 11:26: Glucometer 112H 09/18/22 05:15: White Blood Count 3.4L, Red Blood Count 3.06L, Hemoglobin 8.4L, Hematocrit 26L, Mean Corpuscular Volume 83, Mean Corpuscular Hemoglobin 28, Mean Corpuscular Hemoglobin Concent 33, Red Cell Distribution Width 15.2H, Platelet Count 20*L, Mean Platelet Volume , Immature Granulocyte % (Auto) 10, Neutrophils (%) (Auto) 65, Lymphocytes (%) (Auto) 13, Monocytes (%) (Auto) 11, Eosinophils (%) (Auto) 0, Basophils (%) (Auto) 1, Neutrophils # (Auto) 2.2, Lymphocytes # (Auto) 0.4L, Monocytes # (Auto) 0.4, Eosinophils # (Auto) 0.0, Basophils # (Auto) 0.0, Immature Granulocyte # (Auto) 0.3H, Sodium Level 133L, Potassium Level 3.3L, Chloride Level 98, Carbon Dioxide Level 25, Anion Gap 10, Blood Urea Nitrogen 4L , Creatinine 0.68, Estimat Glomerular Filtration Rate 94, BUN/Creatinine Ratio 6, Glucose Level 98, Calcium Level 7.8L, Corrected Calcium 9.1, Total Bilirubin 0.5, Aspartate Amino Transf (AST/SGOT) 14, Alanine Aminotransferase (ALT/SGPT) 19, Alkaline Phosphatase 42, Albumin 2.4L Assessment/Plan Assessment/Plan Assess & Plan/Chief Complaint Much improved lab numbers Replace potassium Transfuse Monitor closely DUKE JOHNSON DO Sep 18, 2022 05:48
[2022-09-18 05:55] LABS: TOTAL PROTEIN 4.3 GM/DL (6.4-8.2)
[2022-09-18] MEDS: PIPERACILLIN SODIUM/TAZOBACTAM 4.5 GM in NS (IVPB) 100 ML IV SCH ×2 (09:36→15:15)
[2022-09-18] MEDS: meTOprolol TARTRATE 50 MG (LOPRESSOR) TAB PO SCH ×2 (09:37→20:20)
[2022-09-18] MEDS: lisINopril 40 MG (PRINIVIL) TABLET PO SCH (09:37)
[2022-09-18] MEDS: PANTOPRAZOLE 40 MG (PROTONIX) TAB PO SCH (09:37)
[2022-09-18] MEDS: amLODIPine 5 MG (NORVASC) TAB PO SCH (09:37)
[2022-09-18] MEDS: KCL 20 MEQ TAB (K-DUR) PO SCH ×3 (09:37→20:20)
[2022-09-18] MEDS: NICOTINE 14 MG (NICODERM) PATCH TD SCH (09:47)
[2022-09-18] MEDS: NICOTINE PATCH REMOVAL TP SCH (09:47)
[2022-09-18] MEDS: TBO-FILGRASTIM 300 MCG/0.5 ML (GRANIX) SQ SCH (10:03)
--- NOTE | 2022-09-18 10:05 | Physical Therapy Daily Note ---
PT Daily Note-Current Subjective Patient agrees to PT. Pain Section J - Health Conditions 1. Rarely or not at all 2. Occasionally 3. Frequently 4. Almost constantly 8. Unable to answer Pain Effect on Sleep: 2 Pain Interference with Therapy: 2 Pain Interference w/Day-to-Day: 2 Mental Status Patient Orientation: Normal For Age Attachments: Central Line, Oxygen Transfers SCALE: Activities may be completed with or without assistive devices. 5-Rthjrtrigp-ayigett completes the activity by him/herself with no assistance from a helper. 5-Set-up or Clean-up Assistance-helper sets up or cleans up; patient completes activity. [place] assists only prior to or following the activity. 4-Supervision or Touching Assistance-helper provides verbal cues and/or touching/steadying and/or contact guard assistance as patient completes activity. Assistance may be provided throughout the activity or intermittently. 3-Partial/Moderate Assistance-helper does LESS THAN HALF the effort. [place] lifts, holds or supports trunk or limbs, but provides less than half the effort. 2-Substantial/Maximal Assistance-helper does MORE THAN HALF the effort. [place] lifts or holds trunk or limbs and provides more than half the effort. 2-Hqpqwwxsk-oklcqx does ALL the effort. Patient does none of the effort to complete the activity. Or, the assistance of 2 or more helpers is required for the patient to complete the activity. If activity was not attempted, code reason: 7-Patient Refused. 9-Not Applicable-not attempted and the patient did not perform the activity before the current illness, exacerbation or injury. 10-Not Attempted due to Environmental Limitations-(lack of equipment, weather restraints, etc.). 88-Not Attempted due to Medical Conditions or Safety Concerns. Lying to Sitting/Side of Bed(Q: 6 Sit to Stand (QC): 6 Chair/Bmf-iq-Dmwxh Xfer(QC): 6 Weight Bearing Full Weight Bearing Full Weight Bearing Gait Training Distance: >500' Walk 10 feet (QC): 6 Walk 50 ft with 2 Turns(QC): 6 Walk 150 ft (QC): 6 Gait Assistive Device: FWW safe and functional with no deviation Assessment Plan dismissal tomorrow to home per physician. PT to continue up to dismissal. PT Manager Sterile Processing Goals Manager Sterile Processing Goals PT Manager Sterile Processing Goals Time Frame: Sep 30, 2022 Roll Left & Right (QC): 6 Sit to Lying (QC): 6 Lying-Sitting on Side/Bed(QC): 6 Sit to Stand (QC): 6 Chair/Rro-bd-Gvghs Xfer(QC): 6 Toilet Transfer (QC): 6 Walk 10 feet (QC): 6 Walk 50ft with 2 Turns (QC): 6 Walk 150 ft (QC): 6 PT Plan Treatment/Plan Treatment Plan: Continue Plan of Care Treatment Plan: Bed Mobility, Education, Functional Activity Andra, Functional Strength, Gait, Safety, Therapeutic Exercise, Transfers Treatment Duration: Sep 30, 2022 Frequency: 6 times per week Estimated Hrs Per Day: .25 hour per day Patient and/or Family Agrees t: Yes Time Time In: 920 Time Out: 931 Total Billed Treatment Time: 11 Total Billed Treatment 1 visit FA 11 min ELISSA VALLE PT Sep 18, 2022 10:05
--- NOTE | 2022-09-18 10:11 | Occupational Ther Daily Note ---
OT Current Status-Daily Note Subjective Pt alert, in recliner. Pt c/o no pain but increased fatigue. Per pt, she is ambulating to bathroom independently. Mental Status/Objective Patient Orientation: Person, Place, Time, Situation Attachments: IV ADL-Treatment Pt declined ambulating to bathroom to brush teeth/hair. Pt declines arm exercises due to arms being tired. Pt instructed to complete arm exercises on her own time when she feels up to it. Pt reports she is ad franklyn in room and and doing things independently. Pt made comfortable in recliner at end of session. Call light/phone in reach. All needs met in room. Therapy Code Descriptions/Definitions Functional [place] Measure: 0=Not Assessed/NA 4=Minimal Assistance 1=Total Assistance 5=Supervision or Setup 2=Maximal Assistance 6=Modified [place] 3=Moderate Assistance 7=Complete IndependenceSCALE: Activities may be completed with or without assistive devices. 3-Ncbparaiyv-zgiltpg completes the activity by him/herself with no assistance from a helper. 5-Set-up or Clean-up Assistance-helper sets up or cleans up; patient completes activity. [place] assists only prior to or following the activity. 4-Supervision or Touching Assistance-helper provides verbal cues and/or touching/steadying and/or contact guard assistance as patient completes activit y. Assistance may be provided throughout the activity or intermittently. 3-Partial/Moderate Assistance-helper does LESS THAN HALF the effort. [place] lifts, holds or supports trunk or limbs, but provides less than half the effort. 2-Substantial/Maximal Assistance-helper does MORE THAN HALF the effort. [place] lifts or holds trunk or limbs and provides more than half the effort. 9-Tztcacipv-zgvzap does ALL the effort. Patient does none of the effort to complete the activity. Or, the assistance of 2 or more helpers is required for the patient to complete the activity. If activity was not attempted, code reason: 7-Patient Refused. 9-Not Applicable-not attempted and the patient did not perform the activity before the current illness, exacerbation or injury. 10-Not Attempted due to Environmental Limitations-(lack of equipment, weather restraints, etc.). 88-Not Attempted due to Medical Conditions or Safety Concerns. Education OT Patient Education: Home exercise program Teaching Recipient: Patient Teaching Methods: Discussion Response to Teaching: Verbalize Understanding OT Chcf Goals Chcf Goals Time Frame: Sep 29, 2022 Oral Hygiene (QC): 5 Toileting Hygiene (QC): 6 Shower/Bathe Self (QC): 4 Upper Body Dressing (QC): 5 Lower Body Dressing (QC): 4 On/Off Footwear (QC): 4 Additional Goals: 1-Demonstrate ADL Tasks, 2-Verbalize Understanding, 3- ImproveStrength/Andra 1=Demonstrate adherence to instructed precautions during ADL tasks. 2=Patient will verbalize/demonstrate understanding of assistive devices/modifications for ADL. 3=Patient will improve strength/tolerance for activity to enable patient to perform ADL's. OT Education/Plan Problem List/Assessment Assessment: Decreased Activ Tolerance Discharge Recommendations Plan/Recommendations: Continue POC Treatment Plan/Plan of Care Patient would benefit from OT for education, treatment and training to promote i ndependence in ADL's, mobility, safety and/or upper extremity function for ADL's. Plan of Care: ADL Retraining, Functional Mobility, UE Funct Exercise/Act Treatment Duration: Sep 29, 2022 Frequency: 3 times per week (3-5 times per week) Rehab Potential: Guarded Time/GCodes Start Time: 09:31 Stop Time: 09:39 Total Time Billed (hr/min): 8 Billed Treatment Time 1 visit FA 1 (8 min) VÍCTOR SANDOVAL Sep 18, 2022 10:11
[2022-09-18] MEDS: LACTATED RINGERS 1,000 ML IV SCH (15:15)
--- NOTE | 2022-09-18 15:36 | Progress Note - Surgery ---
Subjective Date Seen by a Provider: Sep 18, 2022 Time Seen by a Provider: 09:00 Subjective/Events-last exam Having bowel function. Pain controlled. Starting to feel better. Ambulating. Denies n/v fever sweats chills shortness of breath or chest pain. WBC starting to increase. Objective Exam Vital Signs Date Time Temp Pulse Resp B/P (MAP) Pulse Ox O2 Delivery O2 Flow Rate FiO2 09/18/22 11:28 36.3 86 18 138/83 (101) 98 Nasal Cannula 2.50 09/18/22 08:00 Nasal Cannula 2.00 09/18/22 07:26 36.1 102 18 136/78 (97) 97 Nasal Cannula 2.50 09/18/22 06:51 93 Nasal Cannula 2.50 09/18/22 05:26 20 09/18/22 04:09 37.2 106 18 133/92 (106) 94 Nasal Cannula 3.00 09/18/22 02:41 93 2.50 09/18/22 00:00 36.7 102 20 151/70 (97) 95 Nasal Cannula 2.50 09/17/22 21:46 90 Nasal Cannula 2.50 09/17/22 20:00 Nasal Cannula 2.00 09/17/22 19:02 36.4 111 20 141/79 (99) 93 Nasal Cannula 2.50 09/17/22 18:11 20 09/17/22 16:00 36.3 108 20 125/79 (94) 92 Nasal Cannula 2.50 I & O 09/18/22 07:00 Intake Total 2071 ml Balance 2071 ml Capillary Refill : Less Than 3 Seconds General Appearance: No Apparent Distress, Chronically ill HEENT: PERRL/EOMI Neck: Non Tender, Supple Respiratory: Chest Non Tender, No Accessory Muscle Use, No Respiratory Distress Cardiovascular: Regular Rate, Rhythm (HR 94 this am, no tachycardia overnight), No Murmur Peripheral Pulses: 2+ Radial Pulses (R), 2+ Radial Pulses (L) Gastrointestinal: soft, distended (minimal, improving), tenderness (diffuse with deep palpation), other (incision clean/dry/intact no signs infection, minimal erythema around incision) Extremity: Normal Capillary Refill, Non Tender Neurologic/Psychiatric: Alert, Oriented x3 Skin: Normal Color, Warm/Dry Results Lab Laboratory Tests 09/18/22 05:15: White Blood Count 3.4L, Red Blood Count 3.06L, Hemoglobin 8.4L, Hematocrit 26L, Mean Corpuscular Volume 83, Mean Corpuscular Hemoglobin 28, Mean Corpuscular Hemoglobin Concent 33, Red Cell Distribution Width 15.2H, Platelet Count 20*L, Mean Platelet Volume , Immature Granulocyte % (Auto) 10, Neutrophils (%) (Auto) 65, Lymphocytes (%) (Auto) 13, Monocytes (%) (Auto) 11, Eosinophils (%) (Auto) 0, Basophils (%) (Auto) 1, Neutrophils # (Auto) 2.2, Lymphocytes # (Auto) 0.4L, Monocytes # (Auto) 0.4, Eosinophils # (Auto) 0.0, Basophils # (Auto) 0.0, Immature Granulocyte # (Auto) 0.3H, Sodium Level 133L, Potassium Level 3.3L, Chloride Level 98, Carbon Dioxide Level 25, Anion Gap 10, Blood Urea Nitrogen 4L , Creatinine 0.68, Estimat Glomerular Filtration Rate 94, BUN/Creatinine Ratio 6, Glucose Level 98, Calcium Level 7.8L, Corrected Calcium 9.1, Total Bilirubin 0.5, Aspartate Amino Transf (AST/SGOT) 14, Alanine Aminotransferase (ALT/SGPT) 19, Alkaline Phosphatase 42, Total Protein 4.3L, Albumin 2.4L 09/18/22 12:49: Lab Scanned Report Transfusion Reaction Form Assessment/Plan Assessment/Plan Assessment/Plan SP ex lap with small bowel resection POD9 metastatic cancer Anemia - pt transfused yesterday, current hgb 8.2 from 6.5 Nausea Wound is clean, dry, and intact minimal erythema noted around incision. Continue pain control prn. PT to ambulate. Continue zofran as needed. Monitor Labs daily. WBC, HgB, and Platelets remain low today, continue Granix and monitor. CLOVIS HSIEH DO Sep 18, 2022 15:36
[2022-09-18] MEDS: morphine PCA 100 MG/100 ML BAG IV PRN (17:09)
[2022-09-18] MEDS: TRELEGY ELLIPTA PO SCH (19:40)
[2022-09-19] MEDS: PIPERACILLIN SODIUM/TAZOBACTAM 4.5 GM in NS (IVPB) 100 ML IV SCH ×2 (00:40→08:36)
[2022-09-19] MEDS: RT-ALBUTEROL/IPRATROPIUM 3 ML (DUONEB) VIAL INH SCH ×2 (02:24→08:11)
[2022-09-19 03:15] VITALS: BP 145/94
[2022-09-19 05:09] LABS: BASOPHILS % (AUTO) 1 % (0-10); EOSINOPHILS % (AUTO) 0 % (0-10); HEMOGLOBIN 9.1 g/dL (11.5-16.0)
[2022-09-19 05:11] LABS: BASOPHILS # (AUTO) 0.1 10^3/uL (0.0-0.1); HEMATOCRIT 28 % (35-52); LYMPHOCYTES # (AUTO) 0.7 10^3/uL (1.0-4.0); LYMPHOCYTES % (AUTO) 6 % (12-44); MEAN CORPUSCULAR HEMOGLOBIN 27 pg (25-34); MEAN CORPUSCULAR HGB CONC 32 g/dL (32-36); MEAN CORPUSCULAR VOLUME 84 fL (80-99); MONOCYTES % (AUTO) 7 % (0-12); NEUTROPHILS # (AUTO) 9.1 10^3/uL (1.8-7.8); NEUTROPHILS % (AUTO) 70 % (42-75); WHITE BLOOD COUNT 13.1 10^3/uL (4.3-11.0)
[2022-09-19 05:14] LABS: PLATELET COUNT 20 10^3/uL (130-400)
[2022-09-19 05:30] LABS: ALBUMIN 2.7 GM/DL (3.2-4.5); BILIRUBIN,TOTAL 0.5 MG/DL (0.1-1.0); CALCIUM 8.4 MG/DL (8.5-10.1); CREATININE SERUM 0.69 MG/DL (0.60-1.30); POTASSIUM 3.9 MMOL/L (3.6-5.0); TOTAL PROTEIN 4.8 GM/DL (6.4-8.2)
[2022-09-19 05:54] LABS: ATYPICAL LYMPHOCYTES 4 %; BAND NEUTROPHILS 21 %; HYPOCHROMASIA SLIGHT; LYMPHOCYTES % (MANUAL) 9 %; MONOCYTES % (MANUAL) 5 %; NEUTROPHILS % (MANUAL) 60 %; PROLYMPHOCYTE % 1 %
[2022-09-19 05:55] LABS: BURR CELLS SLIGHT; ELLIPT/OVALOCYTES SLIGHT
--- NOTE | 2022-09-19 07:04 | Progress Note - Surgery ---
Subjective Date Seen by a Provider: Sep 19, 2022 Time Seen by a Provider: 08:20 Subjective/Events-last exam Patient is sitting up in bed today and is in good spirits Abdominal pain is currently well controlled with morphine Incision is healing well No signs of blood loss Denies any fever or chills Was able to ambulate with PT yesterday with walker Is tolerating diet well Last bowel movement was last night, had semi- solid form Is using incentive spirometry No complaints of nausea/vomiting Objective Exam Vital Signs Date Time Temp Pulse Resp B/P (MAP) Pulse Ox O2 Delivery O2 Flow Rate FiO2 09/19/22 06:38 20 09/19/22 03:15 36.8 95 20 145/94 (111) 97 Nasal Cannula 3.00 09/18/22 23:12 37.0 98 20 135/81 (99) 97 Nasal Cannula 3.00 09/18/22 20:00 Nasal Cannula 3.00 09/18/22 19:49 Nasal Cannula 3.00 09/18/22 19:40 37.5 112 20 125/75 (92) 95 Nasal Cannula 2.50 09/18/22 19:40 92 Nasal Cannula 3.00 09/18/22 18:06 20 09/18/22 16:00 36.7 108 20 125/70 (88) 96 Nasal Cannula 2.50 09/18/22 15:07 94 Nasal Cannula 2.50 09/18/22 11:28 36.3 86 18 138/83 (101) 98 Nasal Cannula 2.50 09/18/22 08:00 Nasal Cannula 2.00 09/18/22 07:26 36.1 102 18 136/78 (97) 97 Nasal Cannula 2.50 I & O 09/19/22 07:00 Intake Total 1550 ml Output Total 1300 ml Balance 250 ml Capillary Refill : Less Than 3 Seconds General Appearance: No Apparent Distress, Chronically ill HEENT: PERRL/EOMI; No Scleral Icterus (L), No Scleral Icterus (R) Neck: Non Tender, Supple Respiratory: Chest Non Tender, No Accessory Muscle Use, No Respiratory Distress Cardiovascular: Regular Rate, Rhythm (HR 94 this am, no tachycardia overnight), No Murmur Peripheral Pulses: 2+ Radial Pulses (R), 2+ Radial Pulses (L) Gastrointestinal: normal bowel sounds, soft, distended (minimal, improving), tenderness (diffuse with deep palpation, rates it a 5/10 at its worse. ), other (incision clean/dry/intact no signs infection, minimal erythema around incision. ) Extremity: Normal Capillary Refill, Non Tender Neurologic/Psychiatric: Alert, Oriented x3 Skin: Normal Color, Warm/Dry Results Lab Laboratory Tests 09/18/22 12:49: Lab Scanned Report Transfusion Reaction Form 09/19/22 05:02: White Blood Count 13.1H, Red Blood Count 3.36L, Hemoglobin 9.1L, Hematocrit 28L, Mean Corpuscular Volume 84, Mean Corpuscular Hemoglobin 27, Mean Corpuscular Hemoglobin Concent 32, Red Cell Distribution Width 15.5H, Platelet Count 20*L, Mean Platelet Volume , Immature Granulocyte % (Auto) 17, Neutrophils (%) (Auto) 70, Lymphocytes (%) (Auto) 6L, Monocytes (%) (Auto) 7, Eosinophils (%) (Auto) 0, Basophils (%) (Auto) 1, Neutrophils # (Auto) 9.1H, Lymphocytes # (Auto) 0.7L, Monocytes # (Auto) 1.0, Eosinophils # (Auto) 0.0, Basophils # (Auto) 0.1, Immature Granulocyte # (Auto) 2.2H, Neutrophils % (Manual) 60, Lymphocytes % (Manual) 9, Prolymphocyte % 1, Monocytes % (Manual) 5, Band Neutrophils 21, Atypical Lymphocytes 4, Percent Immature Platelet Fraction 7.6, Hypochromasia SLIGHT, Abdi Cells SLIGHT, Elliptocytes SLIGHT, Sodium Level 135, Potassium Level 3.9, Chloride Level 98, Carbon Dioxide Level 25, Anion Gap 12, Blood Urea Nitrogen 3L, Creatinine 0.69, Estimat Glomerular Filtration Rate 93, BUN/Creatinine Ratio 4, Glucose Level 89, Calcium Level 8.4L, Corrected Calcium 9.4, Total Bilirubin 0.5, Aspartate Amino Transf (AST/SGOT) 17, Alanine Aminotransferase (ALT/SGPT) 19, Alkaline Phosphatase 56, Total Protein 4.8L, Albumin 2.7L Assessment/Plan Assessment/Plan Assessment/Plan S/P exploratory lap with small bowel resection POD 11 Metastatic lung cancer Anemia - patient transfused 09-17-2022, current hgb 9.1 from 8.2 Nausea Thrombocytopenia- holding stable at 20 Hypoalbuminemia-Continue ensure Wound is clean, dry, and intact minimal erythema noted around incision. Continue pain control as needed. Continue with PT. Continue Zofran as needed. Monitor Labs daily. WBC, HgB, and Platelets remain low today at 20, continue Granix and monitor. 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
[2022-09-19 07:34] VITALS: BP 125/70
[2022-09-19] MEDS: TRELEGY ELLIPTA PO SCH (08:11)
[2022-09-19] MEDS: meTOprolol TARTRATE 50 MG (LOPRESSOR) TAB PO SCH (08:37)
[2022-09-19] MEDS: KCL 20 MEQ TAB (K-DUR) PO SCH ×2 (08:37→12:37)
[2022-09-19] MEDS: PANTOPRAZOLE 40 MG (PROTONIX) TAB PO SCH (08:37)
[2022-09-19] MEDS: lisINopril 40 MG (PRINIVIL) TABLET PO SCH (08:38)
[2022-09-19] MEDS: amLODIPine 5 MG (NORVASC) TAB PO SCH (08:38)
[2022-09-19] MEDS: NICOTINE 14 MG (NICODERM) PATCH TD SCH (08:39)
--- NOTE | 2022-09-19 08:45 | Physical Therapy Progress Note ---
Therapy Progress Note Patient reports she is going home and states she wants to conserve her energy. Patient is also up with nursing ambulating in [facility]. PT to dismiss patient from services at this time. 1 ELISSA SUÁREZ PT Sep 19, 2022 08:45
[2022-09-19] MEDS ORDERED: MORP-68 PO (08:51)
[2022-09-19] MEDS ORDERED: LORA-404 PO (08:51)
[2022-09-19] MEDS ORDERED: POTA-169 PO (08:51)
[2022-09-19] MEDS ORDERED: PROM25TA14 PO (08:51)
[2022-09-19] MEDS ORDERED: AMLO-250 PO (08:51)
--- NOTE | 2022-09-19 08:53 | Discharge Summary ---
Diagnosis/Chief Complaint Date of Admission Sep 08, 2022 at 13:45 Date of Discharge Discharge Date: Sep 19, 2022 Discharge Diagnosis Assess & Plan/Chief Complaint 1. S/P exp lap for small bowel perforation -Wound is dry and intact 09/14: -Had flatus, no BM 09/15: -continues to have flatus, no BM -diet advanced to dysphagia 2 2. Metastatic Lung Cancer -Diagnosed on 08/03/22 >Mets to bone and L adrenal gland >Followed by Dr. Cast >1st chemotherapy completed on 09/07 3. Chemotherapy-induced Leukopenia -WBC decreased to 2.1 >pt is s/p chemotherapy on 09/06 09/12: -WBC decreased to 0.9 09/14: -WBC improved to 1.1 09/15: -WBC decreased to 0.8 4. Anemia -Hgb 6.9 on 09/11 >Transfused with 1U PRBCs 09/12: -Hgb improved to 8.6 following transfusion 09/14: -Hgb decreased to 6.6 >transfusion with 1U PRBCs ordered 09/15: -Hgb improved to 7.7 s/p transfusion of 1U PRBCs 5. Hyponatremia -given IV NS 500mls 09/15: -Na decreased to 131 6. Frail 7. Tobacco Abuse -current smoker 8. H/o Lymphoma 10. Chemotherapy-induced Thrombocytopenia 09/12: - Plt count decreased to 125 09/14: -Plt count decreased to 39 09/15: -Plt decreased to 27 Plan: Continue 300mg Granix daily till WBCs improve to 10 Pain meds prn PT/OT IV NS Fluids Monitor platelets Pt brought trelegy from home, start use in hospital Discharge Summary Discharge Physical Examination Allergies: Coded Allergies: fentanyl (Verified Allergy, Intermediate, 09/03/22) hallucinations codeine (Verified Allergy, Unknown, ITCH/HIVES, 09/03/22) Vitals & I&Os Vital Signs Date Time Temp Pulse Resp B/P (MAP) Pulse Ox O2 Delivery O2 Flow Rate FiO2 09/19/22 14:46 09/19/22 11:44 36.8 92 20 99 Nasal Cannula 3.00 General Appearance: Alert, Oriented X3, Cooperative Respiratory: Clear to Auscultation Cardiovascular: Regular Rate Psych/Mental Status: Mental Status NL Hospital Course Was the Problem List Reviewed?: Yes Pt had an uneventful but lengthy hospital course for 12 days after she presented with bowel obstruction, status post chemotherapy for lung cancer with metastasis. She did require surgery. Pain was an issue, along with neutropenia, thrombocytopenia, and anemia. All three were managed with Granix and transfusions. She completed Zosyn at time of discharge. She was maintained on home pain medication. She was discharged in improved condition but prognosis appears to be extremely poor. Labs (last 24 hrs) Laboratory Tests 09/08/22 06:00: White Blood Count 20.8H, Red Blood Count 3.44L, Hemoglobin 8.9L, Hematocrit 29L, Mean Corpuscular Volume 84, Mean Corpuscular Hemoglobin 26, Mean Corpuscular Hemoglobin Concent 31L, Red Cell Distribution Width 14.2, Platelet Count 331, Mean Platelet Volume 8.7L, Immature Granulocyte % (Auto) 1, Neutrophils (%) (Auto) 94H, Lymphocytes (%) (Auto) 3L, Monocytes (%) (Auto) 2, Eosinophils (%) (Auto) 0, Basophils (%) (Auto) 0, Neutrophils # (Auto) 19.6H, Lymphocytes # (Auto) 0.7L, Monocytes # (Auto) 0.3, Eosinophils # (Auto) 0.0, Basophils # (Auto) 0.0, Immature Granulocyte # (Auto) 0.1, Neutrophils % (Manual) 93, Lymphocytes % (Manual) 3, Monocytes % (Manual) 1, Band Neutrophils 3, Hypochromasia SLIGHT, Anisocytosis SLIGHT, Microcytosis SLIGHT, Sodium Level 132L, Potassium Level 4.1, Chloride Level 99, Carbon Dioxide Level 22, Anion Gap 11, Blood Urea Nitrogen 19H, Creatinine 0.76, Estimat Glomerular Filtration Rate 84, BUN/Creatinine Ratio 25, Glucose Level 141H, Calcium Level 9.5, Corrected Calcium 9.7, Total Bilirubin 0.5, Aspartate Amino Transf (AST/SGOT) 11, Alanine Aminotransferase (ALT/SGPT) 9, Alkaline Phosphatase 52, Total Protein 6.4, Albumin 3.7, Lipase 18 09/08/22 06:20: Urine Color YELLOW, Urine Clarity CLEAR, Urine pH 6.0, Urine Specific [place] 1.020, Urine Protein NEGATIVE, Urine Glucose (UA) NEGATIVE, Urine Ketones NEGATIVE, Urine Nitrite NEGATIVE, Urine Bilirubin NEGATIVE, Urine Urobilinogen 0.2, Urine Leukocyte Esterase NEGATIVE, Urine RBC (Auto) NEGATIVE, Urine RBC RARE, Urine WBC RARE, Urine Squamous Epithelial Cells 0-2, Urine Crystals NONE, Urine Bacteria NEGATIVE, Urine Casts NONE, Urine Mucus NEGATIVE, Urine Culture Indicated NO 09/09/22 05:20: White Blood Count 9.6, Red Blood Count 2.81L, Hemoglobin 7.2L, Hematocrit 24L, Mean Corpuscular Volume 85, Mean Corpuscular Hemoglobin 26, Mean Corpuscular Hemoglobin Concent 30L, Red Cell Distribution Width 14.4, Platelet Count 189, Mean Platelet Volume 8.7L, Immature Granulocyte % (Auto) 0, Neutrophils (%) (Auto) 96H, Lymphocytes (%) (Auto) 4L, Monocytes (%) (Auto) 0, Eosinophils (%) (Auto) 0, Basophils (%) (Auto) 0, Neutrophils # (Auto) 9.2H, Lymphocytes # (Auto) 0.4L, Monocytes # (Auto) 0.0, Eosinophils # (Auto) 0.0, Basophils # (Auto) 0.0, Immature Granulocyte # (Auto) 0.0, Neutrophils % (Manual) 56, Lymphocytes % (Manual) 5, Monocytes % (Manual) 2, Band Neutrophils 32, Sodium Level 136, Potassium Level 4.5, Chloride Level 105, Carbon Dioxide Level 23, Anion Gap 8, Blood Urea Nitrogen 23H, Creatinine 0.84, Estimat Glomerular Filtration Rate 75, BUN/Creatinine Ratio 27, Glucose Level 118H, Calcium Level 8.0L, Metamyelocytes % 5, Platelet Estimate NORMAL, Poikilocytosis SLIGHT, Elliptocytes SLIGHT, Phosphorus Level 3.8, Magnesium Level 2.3 09/10/22 05:30: White Blood Count 7.2, Red Blood Count 2.93L, Hemoglobin 7.6L, Hematocrit 25L, Mean Corpuscular Volume 85, Mean Corpuscular Hemoglobin 26, Mean Corpuscular Hemoglobin Concent 31L, Red Cell Distribution Width 14.4, Platelet Count 202, Mean Platelet Volume 8.9L, Immature Granulocyte % (Auto) 1, Neutrophils (%) (Auto) 91H, Lymphocytes (%) (Auto) 7L, Monocytes (%) (Auto) 0, Eosinophils (%) (Auto) 0, Basophils (%) (Auto) 0, Neutrophils # (Auto) 6.6, Lymphocytes # (Auto) 0.5L, Monocytes # (Auto) 0.0, Eosinophils # (Auto) 0.0, Basophils # (Auto) 0.0, Immature Granulocyte # (Auto) 0.1, Sodium Level 133L, Potassium Level 4.2, Chlor mike Level 103, Carbon Dioxide Level 24, Anion Gap 6, Blood Urea Nitrogen 20H, Creatinine 0.80, Estimat Glomerular Filtration Rate 79, BUN/Creatinine Ratio 25, Glucose Level 93, Calcium Level 8.1L, Phosphorus Level 2.8, Magnesium Level 2.1 09/11/22 05:22: White Blood Count 2.1L, Red Blood Count 2.71L, Hemoglobin 6.9*L, Hematocrit 23L, Mean Corpuscular Volume 83, Mean Corpuscular Hemoglobin 25, Mean Corpuscular Hemoglobin Concent 31L, Red Cell Distribution Width 14.5, Platelet Count 159, M foreign Platelet Volume 9.1, Immature Granulocyte % (Auto) 15, Neutrophils (%) (Auto) 67, Lymphocytes (%) (Auto) 17, Monocytes (%) (Auto) 1, Eosinophils (%) (Auto) 1, Basophils (%) (Auto) 0, Neutrophils # (Auto) 1.4L, Lymphocytes # (Auto) 0.4L, Monocytes # (Auto) 0.0, Eosinophils # (Auto) 0.0, Basophils # (Auto) 0.0, Immature Granulocyte # (Auto) 0.3H, Sodium Level 134L, Potassium Level 3.6, Chloride Level 97L, Carbon Dioxide Level 25, Anion Gap 12, Blood Urea Nitrogen 16, Creatinine 0.78, Estimat Glomerular Filtration Rate 82, BUN/C reatinine Ratio 21, Glucose Level 86, Calcium Level 8.0L, Corrected Calcium 9.3, Total Bilirubin 0.4, Aspartate Amino Transf (AST/SGOT) 17, Alanine Aminotransferase (ALT/SGPT) 6, Alkaline Phosphatase 37L, Total Protein 4.6L, Albumin 2.4L, Smear Scan YES 09/12/22 05:56: White Blood Count 0.9*L, Red Blood Count 3.28L, Hemoglobin 8.6#L, Hematocrit 27L , Mean Corpuscular Volume 83, Mean Corpuscular Hemoglobin 26, Mean Corpuscular Hemoglobin Concent 32, Red Cell Distribution Width 14.5, Platelet Count 125L, Mean Platelet Volume 9.7, Immature Granulocyte % (Auto) 1, Neutrophils (%) (Auto) 63, Lymphocytes (%) (Auto) 28, Monocytes (%) (Auto) 1, Eosinophils (%) (Auto) 7, Basophils (%) (Auto) 0, Neutrophils # (Auto) 0.6L, Lymphocytes # (Auto) 0.3L, Monocytes # (Auto) 0.0, Eosinophils # (Auto) 0.1, Basophils # (Auto) 0.0, Immature Granulocyte # (Auto) 0.0, Sodium Level 134L, Potassium Le ef[place] 3.5L, Chloride Level 99, Carbon Dioxide Level 25, Anion Gap 10, Blood Urea Nitrogen 20H, Creatinine 0.69, Estimat Glomerular Filtration Rate 93, BUN/Creatinine Ratio 29, Glucose Level 90, Calcium Level 8.1L, Corrected Calcium 9.3, Total Bilirubin 0.5, Aspartate Amino Transf (AST/SGOT) 17, Alanine Aminotransferase (ALT/SGPT) 11, Alkaline Phosphatase 38L, Total Protein 4.8L, Albumin 2.5L, Smear Scan YES, Percent Immature Platelet Fraction 1.0 09/12/22 13:17: Lab Scanned Report Transfusion Reaction Form 09/13/22 06:04: White Blood Count 1.0*L, Red Blood Count 2.99L, Hemoglobin 7.7L, Hematocrit 25L, Mean Corpuscular Volume 83, Mean Corpuscular Hemoglobin 26, Mean Corpuscular Hemoglobin Concent 31L, Red Cell Distribution Width 14.6H, Platelet Count 66L, Mean Platelet Volume 10.4, Immature Granulocyte % (Auto) 8, Neutrophils (%) (Auto) 64, Lymphocytes (%) (Auto) 23, Monocytes (%) (Auto) 2, Eosinophils (%) (Auto) 3, Basophils (%) (Auto) 0, Neutrophils # (Auto) 0.6L, Lymphocytes # (Auto) 0.2L, Monocytes # (Auto) 0.0, Eosinophils # (Auto) 0.0, Basophils # (Auto) 0.0, Immature Granulocyte # (Auto) 0.1, Sodium Level 136, Potassium Level 3.1L, Chloride Level 101, Carbon Dioxide Level 24, Anion Gap 11, Blood Urea Nitrogen 22H, Creatinine 0.67, Estimat Glomerular Filtration Rate 94, BU N/Creatinine Ratio 33, Glucose Level 96, Calcium Level 7.9L, Corrected Calcium 9.2, Total Bilirubin 0.3, Aspartate Amino Transf (AST/SGOT) 19, Alanine Aminotransferase (ALT/SGPT) 12, Alkaline Phosphatase 34L, Total Protein 4.5L, Albumin 2.4L, Percent Immature Platelet Fraction 1.7 09/14/22 06:10: White Blood Count 1.1*L, Red Blood Count 2.58L, Hemoglobin 6.6*L, Hematocrit 21L , Mean Corpuscular Volume 83, Mean Corpuscular Hemoglobin 26, Mean Corpuscular Hemoglobin Concent 31L, Red Cell Distribution Width 14.4, Platelet Count 39*L, Mean Platelet Volume 9.8, Immature Granulocyte % (Auto) 11, Neutrophils (%) (Auto) 64, Lymphocytes (%) (Auto) 22, Monocytes (%) (Auto) 3, Eosinophils (%) (Auto) 1, Basophils (%) (Auto) 0, Neutrophils # (Auto) 0.7L, Lymphocytes # (Auto) 0.3L, Monocytes # (Auto) 0.0, Eosinophils # (Auto) 0.0, Basophils # (Auto) 0.0, Immature Granulocyte # (Auto) 0.1, Percent Immature Platelet Fraction 2.6, Sodium Level 134L, Potassium Level 3.0L, Chloride Level 101, Carbon Dioxide Level 26, Anion Gap 7, Blood Urea Nitrogen 14, Creatinine 0.59L, Estimat Glomerular Filtration Rate 97, BUN/Creatinine Ratio 24, Glucose Level 107H, Calcium Level 7.4L, Corrected Calcium 8.8, Magnesium Level 1.5L, Total Bilirubin 0.4, Aspartate Amino Transf (AST/SGOT) 32, Alanine Aminotransferase (ALT/SGPT) 13, Alkaline Phosphatase 30L, Total Protein 4.0L, Albumin 2.3L 09/15/22 05:45: White Blood Count 0.8*L, Red Blood Count 2.90L, Hemoglobin 7.7L, Hematocrit 24L, Mean Corpuscular Volume 82, Mean Corpuscular Hemoglobin 27, Mean Corpuscular Hemoglobin Concent 32, Red Cell Distribution Width 14.3, Platelet Count 27*L, Mean Platelet Volume 8.7L, Immature Granulocyte % (Auto) 5, Neutrophils (%) (Auto) 49, Lymphocytes (%) (Auto) 35, Monocytes (%) (Auto) 9, Eosinophils (%) (Auto) 1, Basophils (%) (Auto) 1, Neutrophils # (Auto) 0.4L, Lymphocytes # (Auto) 0.3L, Monocytes # (Auto) 0.1, Eosinophils # (Auto) 0.0, Basophils # (Auto) 0.0, Immature Granulocyte # (Auto) 0.0, Percent Immature Platelet Fraction 4.7, Sodium Level 131L, Potassium Level 3.7, Chloride Level 98, Carbon Dioxide Level 25, Anion Gap 8, Blood Urea Nitrogen 13, Creatinine 0.57L, Estimat Glomerular Filtration Rate 98, BUN/Creatinine Ratio 23, Glucose Level 88, Calcium Level 7.4L, Corrected Calcium 8.8, Total Bilirubin 0.6, Aspartate Amino Transf (AST/SGOT) 53H, Alanine Aminotransferase (ALT/SGPT) 25, Alkaline Phosphatase 29L, Total Protein 4.0L, Albumin 2.2L, Neutrophils % (Manual) 49, Lymphocytes % (Manual) 38, Prolymphocyte % 3, Monocytes % (Manual) 3, Eosinophils % (Manual) 1, Band Neutrophils 6 09/16/22 05:42: White Blood Count 0.7*L, Red Blood Count 2.50L, Hemoglobin 6.5*L, Hematocrit 20*L, Mean Corpuscular Volume 81, Mean Corpuscular Hemoglobin 26, Mean Corpuscular Hemoglobin Concent 32, Red Cell Distribution Width 14.5, Platelet Count 17*L, Mean Platelet Volume , Immature Granulocyte % (Auto) 0, Neutrophils (%) (Auto) 37L, Lymphocytes (%) (Auto) 40, Monocytes (%) (Auto) 22H, Eosinophils (%) (Auto) 0, Basophils (%) (Auto) 0, Neutrophils # (Auto) 0.3L, Lymphocytes # (Auto) 0.3L, Monocytes # (Auto) 0.2, Eosinophils # (Auto) 0.0, Basophils # (Auto) 0.0, Immature Granulocyte # (Auto) 0.0, Percent Immature Platelet Fraction 4.8, Sodium Level 129L, Potassium Level 3.1L, Chloride Level 96L, Carbon Dioxide Level 24, Anion Gap 9, Blood Urea Nitrogen 11, Creatinine 0.67, Estimat Glomerular Filtration Rate 94, BUN/Creatinine Ratio 16, Glucose Level 106H, Calcium Level 7.1L, Corrected Calcium 8.6, Magnesium Level 1.5L, Total Bilirubin 0.5, Aspartate Amino Transf (AST/SGOT) 31, Alanine Aminotransferase (ALT/SGPT) 21, Alkaline Phosphatase 31L, Total Protein 3.8L, Albumin 2.1L 09/17/22 05:55: White Blood Count 1.6L, Red Blood Count 3.01L, Hemoglobin 8.2#L, Hematocrit 25L, Mean Corpuscular Volume 84, Mean Corpuscular Hemoglobin 27, Mean Corpuscular Hemoglobin Concent 33, Red Cell Distribution Width 15.1H, Platelet Count 12*L, Mean Platelet Volume , Immature Granulocyte % (Auto) 0, Neutrophils (%) (Auto) 62, Lymphocytes (%) (Auto) 26, Monocytes (%) (Auto) 11, Eosinophils (%) (Auto) 0, Basophils (%) (Auto) 1, Neutrophils # (Auto) 1.0L, Lymphocytes # (Auto) 0.4L, Monocytes # (Auto) 0.2, Eosinophils # (Auto) 0.0, Basophils # (Auto) 0.0, Immature Granulocyte # (Auto) 0.0, Percent Immature Platelet Fraction 7.2, Sodium Level 130L, Potassium Level 3.9, Chloride Level 99, Carbon Dioxide Level 25, Anion Gap 6, Blood Urea Nitrogen 7, Creatinine 0.65, Estimat Glomerular [place] tration Rate 95, BUN/Creatinine Ratio 11, Glucose Level 104, Calcium Level 7.1L, Corrected Calcium 8.6, Total Bilirubin 0.5, Aspartate Amino Transf (AST/SGOT) 17, Alanine Aminotransferase (ALT/SGPT) 19, Alkaline Phosphatase 35L, Total Protein 3.8L, Albumin 2.1L 09/17/22 11:26: Glucometer 112H 09/18/22 05:15: White Blood Count 3.4L, Red Blood Count 3.06L, Hemoglobin 8.4L, Hematocrit 26L, Mean Corpuscular Volume 83, Mean Corpuscular Hemoglobin 28, Mean Corpuscular Hemoglobin Concent 33, Red Cell Distribution Width 15.2H, Platelet Count 20*L, Mean Platelet Volume , Immature Granulocyte % (Auto) 10, Neutrophils (%) (Auto) 65, Lymphocytes (%) (Auto) 13, Monocytes (%) (Auto) 11, Eosinophils (%) (Auto) 0 , Basophils (%) (Auto) 1, Neutrophils # (Auto) 2.2, Lymphocytes # (Auto) 0.4L, Monocytes # (Auto) 0.4, Eosinophils # (Auto) 0.0, Basophils # (Auto) 0.0, Immature Granulocyte # (Auto) 0.3H, Sodium Level 133L, Potassium Level 3.3L, Chloride Level 98, Carbon Dioxide Level 25, Anion Gap 10, Blood Urea Nitrogen 4L , Creatinine 0.68, Estimat Glomerular Filtration Rate 94, BUN/Creatinine Ratio 6, Glucose Level 98, Calcium Level 7.8L, Corrected Calcium 9.1, Total Bilirubin 0.5, Aspartate Amino Transf (AST/SGOT) 14, Alanine Aminotransferase (ALT/SGPT) 19, Alkaline Phosphatase 42, Total Protein 4.3L, Albumin 2.4L 09/18/22 12:49: Lab Scanned Report Transfusion Reaction Form 09/19/22 05:02: White Blood Count 13.1H, Red Blood Count 3.36L, Hemoglobin 9.1L, Hematocrit 28L, Mean Corpuscular Volume 84, Mean Corpuscular Hemoglobin 27, Mean Corpuscular Hemoglobin Concent 32, Red Cell Distribution Width 15.5H, Platelet Count 20*L, Mean Platelet Volume , Immature Granulocyte % (Auto) 17, Neutrophils (%) (Auto) 70, Lymphocytes (%) (Auto) 6L, Monocytes (%) (Auto) 7, Eosinophils (%) (Auto) 0, Basophils (%) (Auto) 1, Neutrophils # (Auto) 9.1H, Lymphocytes # (Auto) 0.7L, Monocytes # (Auto) 1.0, Eosinophils # (Auto) 0.0, Basophils # (Auto) 0.1, Immature Granulocyte # (Auto) 2.2H, Sodium Level 135, Potassium Level 3.9, Chloride Level 98, Carbon Dioxide Level 25, Anion Gap 12, Blood Urea Nitrogen 3L , Creatinine 0.69, Estimat Glomerular Filtration Rate 93, BUN/Creatinine Ratio 4, Glucose Level 89, Calcium Level 8.4L, Corrected Calcium 9.4, Total Bilirubin 0.5, Aspartate Amino Transf (AST/SGOT) 17, Alanine Aminotransferase (ALT/SGPT) 19, Alkaline Phosphatase 56, Total Protein 4.8L, Albumin 2.7L, Neutrophils % (Manual) 60, Lymphocytes % (Manual) 9, Prolymphocyte % 1, Monocytes % (Manual) 5, Band Neutrophils 21, Atypical Lymphocytes 4, Percent Immature Platelet Fraction 7.6, Hypochromasia SLIGHT, Abdi Cells SLIGHT, Elliptocytes SLIGHT Pending Labs Laboratory Tests 09/08/22 06:00: White Blood Count 20.8, Red Blood Count 3.44, Hemoglobin 8.9, Hematocrit 29, Mean Corpuscular Volume 84, Mean Corpuscular Hemoglobin 26, Mean Corpuscular Hemoglobin Concent 31, Red Cell Distribution Width 14.2, Platelet Count 331, Mean Platelet Volume 8.7, Immature Granulocyte % (Auto) 1, Neutrophils (%) (Auto) 94, Lymphocytes (%) (Auto) 3, Monocytes (%) (Auto) 2, Eosinophils (%) (Auto) 0, Basophils (%) (Auto) 0, Neutrophils # (Auto) 19.6, Lymphocytes # (Auto) 0.7, Monocytes # (Auto) 0.3, Eosinophils # (Auto) 0.0, Basophils # (Auto) 0.0, Immature Granulocyte # (Auto) 0.1, Neutrophils % (Manual) 93, Lymphocytes % (Manual) 3, Monocytes % (Manual) 1, Band Neutrophils 3, Hypochromasia SLIGHT, Anisocytosis SLIGHT, Microcytosis SLIGHT, Sodium Level 132, Potassium Level 4.1, Chloride Level 99, Carbon Dioxide Level 22, Anion Gap 11, Blood Urea Nitrogen 19, Creatinine 0.76, Estimat Glomerular Filtration Rate 84, BUN/Creatinine Ratio 25, Glucose Level 141, Calcium Level 9.5, Corrected Calcium 9.7, Total Bilirubin 0.5, Aspartate Amino Transf (AST/SGOT) 11, Alanine Aminotransferase (ALT/SGPT) 9, Alkaline Phosphatase 52, Total Protein 6.4, Albumin 3.7, Lipase 18 09/08/22 06:20: Urine Color YELLOW, Urine Clarity CLEAR, Urine pH 6.0, Urine Specific [place] 1.020, Urine Protein NEGATIVE, Urine Glucose (UA) NEGATIVE, Urine Ketones NEGATIVE, Urine Nitrite NEGATIVE, Urine Bilirubin NEGATIVE, Urine Urobilinogen 0.2, Urine Leukocyte Esterase NEGATIVE, Urine RBC (Auto) NEGATIVE, Urine RBC RARE, Urine WBC RARE, Urine Squamous Epithelial Cells 0-2, Urine Crystals NONE, Urine Bacteria NEGATIVE, Urine Casts NONE, Urine Mucus NEGATIVE, Urine Culture Indicated NO 09/09/22 05:20: White Blood Count 9.6, Red Blood Count 2.81, Hemoglobin 7.2, Hematocrit 24, Mean Corpuscular Volume 85, Mean Corpuscular Hemoglobin 26, Mean Corpuscular Hemoglobin Concent 30, Red Cell Distribution Width 14.4, Platelet Count 189, Mean Platelet Volume 8.7, Immature Granulocyte % (Auto) 0, Neutrophils (%) (Auto) 96, Lymphocytes (%) (Auto) 4, Monocytes (%) (Auto) 0, Eosinophils (%) (Auto) 0, Basophils (%) (Auto) 0, Neutrophils # (Auto) 9.2, Lymphocytes # (Auto) 0.4, Monocytes # (Auto) 0.0, Eosinophils # (Auto) 0.0, Basophils # (Auto) 0.0, Immature Granulocyte # (Auto) 0.0, Neutrophils % (Manual) 56, Lymphocytes % (Manual) 5, Monocytes % (Manual) 2, Band Neutrophils 32, Sodium Level 136, Potassium Level 4.5, Chloride Level 105, Carbon Dioxide Level 23, Anion Gap 8, Blood Urea Nitrogen 23, Creatinine 0.84, Estimat Glomerular Filtration Rate 75, BUN/Creatinine Ratio 27, Glucose Level 118, Calcium Level 8.0, Metamyelocytes % 5, Platelet Estimate NORMAL, Poikilocytosis SLIGHT, Elliptocytes SLIGHT, Phosphorus Level 3.8, Magnesium Level 2.3 09/10/22 05:30: White Blood Count 7.2, Red Blood Count 2.93, Hemoglobin 7.6, Hematocrit 25, Mean Corpuscular Volume 85, Mean Corpuscular Hemoglobin 26, Mean Corpuscular Hemoglobin Concent 31, Red Cell Distribution Width 14.4, Platelet Count 202, Mean Platelet Volume 8.9, Immature Granulocyte % (Auto) 1, Neutrophils (%) (Auto) 91, Lymphocytes (%) (Auto) 7, Monocytes (%) (Auto) 0, Eosinophils (%) (Auto) 0, Basophils (%) (Auto) 0, Neutrophils # (Auto) 6.6, Lymphocytes # (Auto) 0.5, Monocytes # (Auto) 0.0, Eosinophils # (Auto) 0.0, Basophils # (Auto) 0.0, Immature Granulocyte # (Auto) 0.1, Sodium Level 133, Potassium Level 4.2, Chloride Level 103, Carbon Dioxide Level 24, Anion Gap 6, Blood Urea Nitrogen 20, Creatinine 0.80, Estimat Glomerular Filtration Rate 79, BUN/Creatinine Ratio 25, Glucose Level 93, Calcium Level 8.1, Phosphorus Level 2.8, Magnesium Level 2.1 09/11/22 05:22: White Blood Count 2.1, Red Blood Count 2.71, Hemoglobin 6.9, Hematocrit 23, Mean Corpuscular Volume 83, Mean Corpuscular Hemoglobin 25, Mean Corpuscular Hemoglobin Concent 31, Red Cell Distribution Width 14.5, Platelet Count 159, Mean Platelet Volume 9.1, Immature Granulocyte % (Auto) 15, Neutrophils (%) (Auto) 67, Lymphocytes (%) (Auto) 17, Monocytes (%) (Auto) 1, Eosinophils (%) (Auto) 1, Basophils (%) (Auto) 0, Neutrophils # (Auto) 1.4, Lymphocytes # (Auto) 0.4, Monocytes # (Auto) 0.0, Eosinophils # (Auto) 0.0, Basophils # (Auto) 0.0, Immature Granulocyte # (Auto) 0.3, Sodium Level 134, Potassium Level 3.6, Chloride Level 97, Carbon Dioxide Level 25, Anion Gap 12, Blood Urea Nitrogen 16, Creatinine 0.78, Estimat Glomerular Filtration Rate 82, BUN/Creatinine Ratio 21, Glucose Level 86, Calcium Level 8.0, Corrected Calcium 9.3, Total Bilirubin 0.4, Aspartate Amino Transf (AST/SGOT) 17, Alanine Aminotransferase (ALT/SGPT) 6, Alkaline Phosphatase 37, Total Protein 4.6, Albumin 2.4, Smear Scan YES 09/12/22 05:56: White Blood Count 0.9, Red Blood Count 3.28, Hemoglobin 8.6, Hematocrit 27, Mean Corpuscular Volume 83, Mean Corpuscular Hemoglobin 26, Mean Corpuscular Hemoglobin Concent 32, Red Cell Distribution Width 14.5, Platelet Count 125, Mean Platelet Volume 9.7, Immature Granulocyte % (Auto) 1, Neutrophils (%) (Auto) 63, Lymphocytes (%) (Auto) 28, Monocytes (%) (Auto) 1, Eosinophils (%) (Auto) 7, Basophils (%) (Auto) 0, Neutrophils # (Auto) 0.6, Lymphocytes # (Auto) 0.3, Monocytes # (Auto) 0.0, Eosinophils # (Auto) 0.1, Basophils # (Auto) 0.0, Immature Granulocyte # (Auto) 0.0, Sodium Level 134, Potassium Level 3.5, Chloride Level 99, Carbon Dioxide Level 25, Anion Gap 10, Blood Urea Nitrogen 20, Creatinine 0.69, Estimat Glomerular Filtration Rate 93, BUN/Creatinine Ratio 29, Glucose Level 90, Calcium Level 8.1, Corrected Calcium 9.3, Total Bilirubin 0.5, Aspartate Amino Transf (AST/SGOT) 17, Alanine Aminotransferase (ALT/SGPT) 11, Alkaline Phosphatase 38, Total Protein 4.8, Albumin 2.5, Smear Scan YES, Percent Immature Platelet Fraction 1.0 09/12/22 13:17: Lab Scanned Report Transfusion Reaction Form 09/13/22 06:04: White Blood Count 1.0, Red Blood Count 2.99, Hemoglobin 7.7, Hematocrit 25, Mean Corpuscular Volume 83, Mean Corpuscular Hemoglobin 26, Mean Corpuscular Hemoglobin Concent 31, Red Cell Distribution Width 14.6, Platelet Count 66, Mean Platelet Volume 10.4, Immature Granulocyte % (Auto) 8, Neutrophils (%) (Auto) 64, Lymphocytes (%) (Auto) 23, Monocytes (%) (Auto) 2, Eosinophils (%) (Auto) 3, Basophils (%) (Auto) 0, Neutrophils # (Auto) 0.6, Lymphocytes # (Auto) 0.2, Monocytes # (Auto) 0.0, Eosinophils # (Auto) 0.0, Basophils # (Auto) 0.0, Immat ure Granulocyte # (Auto) 0.1, Sodium Level 136, Potassium Level 3.1, Chloride Level 101, Carbon Dioxide Level 24, Anion Gap 11, Blood Urea Nitrogen 22, Creatinine 0.67, Estimat Glomerular Filtration Rate 94, BUN/Creatinine Ratio 33, Glucose Level 96, Calcium Level 7.9, Corrected Calcium 9.2, Total Bilirubin 0.3, Aspartate Amino Transf (AST/SGOT) 19, Alanine Aminotransferase (ALT/SGPT) 12, Alkaline Phosphatase 34, Total Protein 4.5, Albumin 2.4, Percent Immature Platelet Fraction 1.7 09/14/22 06:10: White Blood Count 1.1, Red Blood Count 2.58, Hemoglobin 6.6, Hematocrit 21, Mean Corpuscular Volume 83, Mean Corpuscular Hemoglobin 26, Mean Corpuscular Hemoglobin Concent 31, Red Cell Distribution Width 14.4, Platelet Count 39, Mean Platelet Volume 9.8, Immature Granulocyte % (Auto) 11, Neutrophils (%) (Auto) 64, Lymphocytes (%) (Auto) 22, Monocytes (%) (Auto) 3, Eosinophils (%) (Auto) 1, Basophils (%) (Auto) 0, Neutrophils # (Auto) 0.7, Lymphocytes # (Auto) 0.3, Monocytes # (Auto) 0.0, Eosinophils # (Auto) 0.0, Basophils # (Auto) 0.0, Immature Granulocyte # (Auto) 0.1, Percent Immature Platelet Fraction 2.6, Sodium Level 134, Potassium Level 3.0, Chloride Level 101, Carbon Dioxide Level 26, Anion Gap 7, Blood Urea Nitrogen 14, Creatinine 0.59, Estimat Glomerular Filtration Rate 97, BUN/Creatinine Ratio 24, Glucose Level 107, Calcium Level 7.4, Corrected Calcium 8.8, Magnesium Level 1.5, Total Bilirubin 0.4, Aspartate Amino Transf (AST/SGOT) 32, Alanine Aminotransferase (ALT/SGPT) 13, Alkaline Phosphatase 30, Total Protein 4.0, Albumin 2.3 09/15/22 05:45: White Blood Count 0.8, Red Blood Count 2.90, Hemoglobin 7.7, Hematocrit 24, Mean Corpuscular Volume 82, Mean Corpuscular Hemoglobin 27, Mean Corpuscular Hemoglobin Concent 32, Red Cell Distribution Width 14.3, Platelet Count 27, Mean Platelet Volume 8.7, Immature Granulocyte % (Auto) 5, Neutrophils (%) (Auto) 49, Lymphocytes (%) (Auto) 35, Monocytes (%) (Auto) 9, Eosinophils (%) (Auto) 1, Basophils (%) (Auto) 1, Neutrophils # (Auto) 0.4, Lymphocytes # (Auto) 0.3, Monocytes # (Auto) 0.1, Eosinophils # (Auto) 0.0, Basophils # (Auto) 0.0, Immature Granulocyte # (Auto) 0.0, Percent Immature Platelet Fraction 4.7, Sodium Level 131, Potassium Level 3.7, Chloride Level 98, Carbon Dioxide Level 25, Anion Gap 8, Blood Urea Nitrogen 13, Creatinine 0.57, Estimat Glomerular Filtration Rate 98, BUN/Creatinine Ratio 23, Glucose Level 88, Calcium Level 7.4, Corrected Calcium 8.8, Total Bilirubin 0.6, Aspartate Amino Transf (AST/SGOT) 53, Alanine Aminotransferase (ALT/SGPT) 25, Alkaline Phosphatase 29, Total Protein 4.0, Albumin 2.2, Neutrophils % (Manual) 49, Lymphocytes % (Manual) 38, Prolymphocyte % 3, Monocytes % (Manual) 3, Eosinophils % (Manual) 1, Band Neutrophils 6 09/16/22 05:42: White Blood Count 0.7, Red Blood Count 2.50, Hemoglobin 6.5, Hematocrit 20, Mean Corpuscular Volume 81, Mean Corpuscular Hemoglobin 26, Mean Corpuscular Hemoglobin Concent 32, Red Cell Distribution Width 14.5, Platelet Count 17, Mean Platelet Volume , Immature Granulocyte % (Auto) 0, Neutrophils (%) (Auto) 37, Lymphocytes (%) (Auto) 40, Monocytes (%) (Auto) 22, Eosinophils (%) (Auto) 0, Basophils (%) (Auto) 0, Neutrophils # (Auto) 0.3, Lymphocytes # (Auto) 0.3, Monocytes # (Auto) 0.2, Eosinophils # (Auto) 0.0, Basophils # (Auto) 0.0, Immature Granulocyte # (Auto) 0.0, Percent Immature Platelet Fraction 4.8, Sodium Level 129, Potassium Level 3.1, Chloride Level 96, Carbon Dioxide Level 24, Anion Gap 9, Blood Urea Nitrogen 11, Creatinine 0.67, Estimat Glomerular Filtration Rate 94, BUN/Creatinine Ratio 16, Glucose Level 106, Calcium Level 7.1, Corrected Calcium 8.6, Magnesium Level 1.5, Total Bilirubin 0.5, Aspartate Amino Transf (AST/SGOT) 31, Alanine Aminotransferase (ALT/SGPT) 21, Alkaline Phosphatase 31, Total Protein 3.8, Albumin 2.1 09/17/22 05:55: White Blood Count 1.6, Red Blood Count 3.01, Hemoglobin 8.2, Hematocrit 25, Mean Corpuscular Volume 84, Mean Corpuscular Hemoglobin 27, Mean Corpuscular Hemoglobin Concent 33, Red Cell Distribution Width 15.1, Platelet Count 12, Mean Platelet Volume , Immature Granulocyte % (Auto) 0, Neutrophils (%) (Auto) 62, Lymphocytes (%) (Auto) 26, Monocytes (%) (Auto) 11, Eosinophils (%) (Auto) 0, Basophils (%) (Auto) 1, Neutrophils # (Auto) 1.0, Lymphocytes # (Auto) 0.4, Monocytes # (Auto) 0.2, Eosinophils # (Auto) 0.0, Basophils # (Auto) 0.0, Immature Granulocyte # (Auto) 0.0, Percent Immature Platelet Fraction 7.2, Sodium Level 130, Potassium Level 3.9, Chloride Level 99, Carbon Dioxide Level 25, Anion Gap 6, Blood Urea Nitrogen 7, Creatinine 0.65, Estimat Glomerular Filtration Rate 95, BUN/Creatinine Ratio 11, Glucose Level 104, Calcium Level 7.1, Corrected Calcium 8.6, Total Bilirubin 0.5, Aspartate Amino Transf (AST/SGOT) 17, Alanine Aminotransferase (ALT/SGPT) 19, Alkaline Phosphatase 35, Total Protein 3.8, Albumin 2.1 09/17/22 11:26: Glucometer 112 09/18/22 05:15: White Blood Count 3.4, Red Blood Count 3.06, Hemoglobin 8.4, Hematocrit 26, Mean Corpuscular Volume 83, Mean Corpuscular Hemoglobin 28, Mean Corpuscular Hemoglobin Concent 33, Red Cell Distribution Width 15.2, Platelet Count 20, Mean Platelet Volume , Immature Granulocyte % (Auto) 10, Neutrophils (%) (Auto) 65, Lymphocytes (%) (Auto) 13, Monocytes (%) (Auto) 11, Eosinophils (%) (Auto) 0, Basophils (%) (Auto) 1, Neutrophils # (Auto) 2.2, Lymphocytes # (Auto) 0.4, Monocytes # (Auto) 0.4, Eosinophils # (Auto) 0.0, Basophils # (Auto) 0.0, Immature Granulocyte # (Auto) 0.3, Sodium Level 133, Potassium Level 3.3, Chloride Level 98, Carbon Dioxide Level 25, Anion Gap 10, Blood Urea Nitrogen 4, Creatinine 0.68, Estimat Glomerular Filtration Rate 94, BUN/Creatinine Ratio 6, Glucose Level 98, Calcium Level 7.8, Corrected Calcium 9.1, Total Bilirubin 0.5, Aspartate Amino Transf (AST/SGOT) 14, Alanine Aminotransferase (ALT/SGPT) 19, Alkaline Phosphatase 42, Total Protein 4.3, Albumin 2.4 09/18/22 12:49: Lab Scanned Report Transfusion Reaction Form 09/19/22 05:02: White Blood Count 13.1, Red Blood Count 3.36, Hemoglobin 9.1, Hematocrit 28, Mean Corpuscular Volume 84, Mean Corpuscular Hemoglobin 27, Mean Corpuscular Hemoglobin Concent 32, Red Cell Distribution Width 15.5, Platelet Count 20, Mean Platelet Volume , Immature Granulocyte % (Auto) 17, Neutrophils (%) (Auto) 70, Lymphocytes (%) (Auto) 6, Monocytes (%) (Auto) 7, Eosinophils (%) (Auto) 0, Basophils (%) (Auto) 1, Neutrophils # (Auto) 9.1, Lymphocytes # (Auto) 0.7, Monocytes # (Auto) 1.0, Eosinophils # (Auto) 0.0, Basophils # (Auto) 0.1, Immature Granulocyte # (Auto) 2.2, Sodium Level 135, Potassium Level 3.9, Chloride Level 98, Carbon Dioxide Level 25, Anion Gap 12, Blood Urea Nitrogen 3, Creatinine 0.69, Estimat Glomerular Filtration Rate 93, BUN/Creatinine Ratio 4, Glucose Level 89, Calcium Level 8.4, Corrected Calcium 9.4, Total Bilirubin 0.5, Aspartate Amino Transf (AST/SGOT) 17, Alanine Aminotransferase (ALT/SGPT) 19, Alkaline Phosphatase 56, Total Protein 4.8, Albumin 2.7, Neutrophils % (Manual) 60, Lymphocytes % (Manual) 9, Prolymphocyte % 1, Monocytes % (Manual) 5, Band Neutrophils 21, Atypical Lymphocytes 4, Percent Immature Platelet Fraction 7.6, Hypochromasia SLIGHT, Abdi Cells SLIGHT, Elliptocytes SLIGHT Discharge Home Medications: Active Scripts Active Ativan (Lorazepam) 0.5 Mg Tablet 0.5 Mg PO TID PRN Klor-Con M20 (Potassium Chloride) 20 Meq Tab.er.prt 20 Meq PO DAILY Amlodipine Besylate 5 Mg Tablet 5 Mg PO DAILY Morphine Sulfate ER (Morphine Sulfate) 15 Mg Tablet.er 15 Mg PO Q8H Promethazine Tablet (Promethazine HCl) 25 Mg Tablet 25 Mg PO Q6H PRN Reported Docusate Sodium 100 Mg Capsule 100 Mg PO BID Senna (Sennosides) 8.6 Mg Tablet 8.6 Mg PO DAILY Iprat-Albut 0.5-3(2.5) mg/3 ml (Ipratropium/Albuterol Sulfate) 0.5 Mg-3 Mg (2.5 Mg Base)/3 Ml Ampul.neb 3 Ml NEB Q4H PRN Combivent Respimat Inhal [place] (Albuterol/Ipratropium) 20 Mcg-100 Mcg/Actuation Aero 2 Puff INH DAILY PRN Pantoprazole Sodium 40 Mg Tablet. 40 Mg PO DAILY Dexamethasone 4 Mg Tablet 4 Mg PO BID PRN Lisinopril 40 Mg Tablet 20 Mg PO DAILY TAKES OF A 40MG TAB Folic Acid 1 Mg Tablet 1 Mg PO DAILY Oxycodone HCl 5 Mg Tablet 5 Mg PO Q4H PRN Metoprolol Tartrate 100 Mg Tablet 100 Mg PO BID Trelegy Ellipta 100-62.5-25 (Fluticasone/Umeclidin/Vilanter) 100-62.5 Blst.w.dev 1 Each IH DAILY Aspirin EC (Aspirin) 81 Mg Tablet. 81 Mg PO DAILY Rosuvastatin Calcium 20 Mg Tablet 20 Mg PO DAILY Instructions to patient/family Please see electronic discharge instructions given to patient. DUKE JOHNSON DO Sep 19, 2022 08:53
--- NOTE | 2022-09-19 08:53 | D/C HH Face to Face Order ---
D/C Face to Face Orders Reconcile Patient Problems Problems Reviewed?: Yes Instructions for Patient [facility], Patient Instructions/FollowUp: Dr Garnett in 1 week Physician to follow Patient: Tamir Discharge Diet for Home: No Restrictions Patient Problems: Bowel obstruction Lung cancer Patient Data-Allergies,Ht & Wt Patient Allergies: Coded Allergies: fentanyl (Verified Allergy, Intermediate, 09/03/22) hallucinations codeine (Verified Allergy, Unknown, ITCH/HIVES, 09/03/22) Home Health Need/Face to Face Date of Face to Face: Sep 19, 2022 Clinical Findings: Generalized weakness and fatigue, Immune-compromised, Muscle weakness I have seen Pt [id number]: Yes Discharged To: Home Diagnosis/Conditions: SBO Patient is Homebound due to: Rashi fall risk due to instabilty, Muscle weakness Homebound Status Due to the above stated illness, injury or surgical procedure (medical condition or diagnosis) and associated clinical findings, the patient is homebound because of his/her inability to leave home except with aid of a supportive device and/or person AND leaving the home requires a considerable and taxing effort or is medically contraindicated. Pt req the following assistanc: [facility] Nursing Orders Home Health Services Order: Nursing Services, Traffic Control Flagger-Evaluate & Treat, Physical Therapy-Evaluate & Treat Home Health Infusion Therapy Line Start Date: Sep 08, 2022 Certify Stmt I certify that this patient is under my care and that I, a nurse practitioner or a physician; a service assistant working with me, had a face to face encounter that - meets the physician face to face encounter requirements with this patient as dated. DUKE JOHNSON DO Sep 19, 2022 08:53
[2022-09-19] MEDS: NICOTINE PATCH REMOVAL TP SCH (08:55)
[2022-09-19 11:44] VITALS: BP 152/88
[2022-09-19] MEDS: ONDANSETRON 4 MG/2 ML (SDV) Z0FRAN IVP PRN (12:37)
== END 2022-09-19 14:45 | disposition home health service (06) | DRG 330 ==
LOC: EDUNIT# 05:48 → ER 05:49 → SDC 09:57 → ICU 13:45 → 4TH 09-10 14:06 → UNDOFXSDCSVC 09-10 14:06 → 4TH 09-13 15:00
PROVIDERS: ADMIT Surgery; ATTEND Surgery
PROC: 0DBA0ZZ Excision of Jejunum, Open Approach (ICD-10-PCS; 2022-09-08)
PROC: 0DBB0ZZ Excision of Ileum, Open Approach (ICD-10-PCS; principal; 2022-09-08 10:47)
DX: K63.1 Perforation of intestine (nontraumatic) (principal); C34.90 Malignant neoplasm of unspecified part of unspecified bronchus or lung; C79.51 Secondary malignant neoplasm of bone; E87.1 Hypo-osmolality and hyponatremia; D61.818 Other pancytopenia; C49.9 Malignant neoplasm of connective and soft tissue, unspecified; C85.90 Non-Hodgkin lymphoma, unspecified, unspecified site; K66.8 Other specified disorders of peritoneum; Z79.82 Long term (current) use of aspirin; Z79.899 Other long term (current) drug therapy; F17.210 Nicotine dependence, cigarettes, uncomplicated; J44.9 Chronic obstructive pulmonary disease, unspecified; E78.00 Pure hypercholesterolemia, unspecified; I10 Essential (primary) hypertension; G89.29 Other chronic pain; M54.9 Dorsalgia, unspecified; Z92.21 Personal history of antineoplastic chemotherapy; R54 Age-related physical debility; D64.9 Anemia, unspecified; R00.0 Tachycardia, unspecified; R09.02 Hypoxemia; D70.1 Agranulocytosis secondary to cancer chemotherapy; E87.6 Hypokalemia; D69.6 Thrombocytopenia, unspecified
CPT/HCPCS: 36415; 74018; 74177; 80048; 80053; 81000; 82947; 83690; 83735; 84100; 85007; 85025; 85027; 86850; 86900; 86901; 86920; 93005; 94640; 94664; 94760; 96361; 96365; 96367; 96375; J1447

== ENCOUNTER → 2022-12-15 | Outpatient (CLI) | payer MEDICARE, MEDICAID ==
[~2022-12-15] MED LIST changes: +AMLO-250 PO; +DEXA4TAB PO; +DOCU100C37 PO; +LORA-404 PO; +MORP-68 PO; +PANT40TA52 PO; +POTA-169 PO; +SENN-234 PO
--- NOTE | 2022-12-15 17:31 | Diagnostic Imaging Report ---
INDICATION: Lung cancer with adrenal gland metastasis. TECHNIQUE: After intravenous administration of 26.4 mCi technetium 99m MDP, whole body scintigraphic imaging was performed in the anterior and posterior projections. FINDINGS: There is normal biodistribution of activity. No area of abnormal increased or decreased activity is seen. There is activity within the kidneys, bilaterally, excreted into the urinary bladder. IMPRESSION: Normal whole body bone scan. Dictated by: Dictated on workstation # [id number]
== END ==
LOC: CARD 10:07
PROVIDERS: ATTEND Nurse Practitioner Adult Health
DX: C34.32 Malignant neoplasm of lower lobe, left bronchus or lung (principal); C34.11 Malignant neoplasm of upper lobe, right bronchus or lung; C79.51 Secondary malignant neoplasm of bone; C79.89 Secondary malignant neoplasm of other specified sites; C79.72 Secondary malignant neoplasm of left adrenal gland; C79.71 Secondary malignant neoplasm of right adrenal gland
CPT/HCPCS: 78306; A9503

== ENCOUNTER 2023-01-13 21:09 | Emergency (ER) | payer MEDICARE, MEDICAID ==
[~2023-01-13] VITALS: Ht 147.3 cm; Wt 35.8 kg
[2023-01-13 22:01] LABS: BASOPHILS % (AUTO) 0 % (0-10); EOSINOPHILS # (AUTO) 0.1 10^3/uL (0.0-0.3); EOSINOPHILS % (AUTO) 1 % (0-10); HEMATOCRIT 36 % (35-52); HEMOGLOBIN 11.2 g/dL (11.5-16.0); LYMPHOCYTES # (AUTO) 1.1 10^3/uL (1.0-4.0); LYMPHOCYTES % (AUTO) 10 % (12-44); MEAN CORPUSCULAR HEMOGLOBIN 29 pg (25-34); MEAN CORPUSCULAR HGB CONC 32 g/dL (32-36); MEAN CORPUSCULAR VOLUME 92 fL (80-99); MEAN PLATELET VOLUME 10.6 fL (9.0-12.2); MONOCYTES # (AUTO) 0.9 10^3/uL (0.0-1.0); MONOCYTES % (AUTO) 8 % (0-12); NEUTROPHILS # (AUTO) 8.2 10^3/uL (1.8-7.8); NEUTROPHILS % (AUTO) 80 % (42-75); PLATELET COUNT 172 10^3/uL (130-400); WHITE BLOOD COUNT 10.3 10^3/uL (4.3-11.0)
[2023-01-13 22:06] LABS: POTASSIUM 4.4 MMOL/L (3.6-5.0)
[2023-01-13 22:07] LABS: CALCIUM 8.7 MG/DL (8.5-10.1)
[2023-01-13 22:11] LABS: CREATININE SERUM 0.78 MG/DL (0.60-1.30)
[2023-01-13 22:14] LABS: BILIRUBIN,URINE NEGATIVE (NEGATIVE); CLARITY,URINE CLEAR; COLOR,URINE YELLOW; GLUCOSE, URINE (UA) NEGATIVE (NEGATIVE); KETONES,URINE NEGATIVE (NEGATIVE); LEUKOCYTE ESTERASE ,URINE TRACE (NEGATIVE); NITRITE,URINE NEGATIVE (NEGATIVE); PH,URINE 7.5 (5-9); PROTEIN,URINE NEGATIVE (NEGATIVE)
[2023-01-13 22:23] LABS: BACTERIA,URINE TRACE /HPF; WBC,URINE 0-2 /HPF
--- NOTE | 2023-01-13 23:43 | ED General ---
General Chief Complaint: Respiratory Problems Stated Complaint: COUGH/SOA/CHILLS Nursing Triage Note: PT AMBULATORY TO ROOM WITH PT SISTER. PT REPORTS HX OF LUNG CANCER WITH CHEMO AND IMMUNOTHERAPY. PT STATES TODAY SHE STARTED FEELING SICK. STATES SHE FEELS FEVERISH, WITH INCREASED COUGH, SOB, AND WEAKNESS. PT REPORTS SHE WEARS 3L O2 AT HOME AT ALL TIMES. Source of Information: Patient, Family, Old Records Exam Limitations: No Limitations History of Present Illness Date Seen by Provider: Jan 13, 2023 Time Seen by Provider: 21:17 Initial Comments This 72-year-old woman presents to the emergency room accompanied by her daughter with complaints about worsening shortness of breath and a dry cough. Symptoms have been worse the past 3 to 4 days. She has felt chilled without fever. She is presently being treated for stage IV lung cancer with immunotherapy. She has finished chemotherapy and reportedly had good results with regression of disease. Her last immunotherapy was on Sunday. Patient states she can hear crackling with deep breathing. She has been placed on antibiotics and prednisone last week but did not resolve her symptoms. In review of her medications it appears she filled a 1 week course of doxycycline. She does have oxygen at home that she can use as needed. She is afebrile at present and does not appear in any distress. Dr. Marroquin is her oncologist. Dr. Garnett is her PCP. Allergies and Home Medications Allergies Coded Allergies: fentanyl (Verified Allergy, Intermediate, 09/03/22) hallucinations codeine (Verified Allergy, Unknown, ITCH/HIVES, 09/03/22) Patient Home Medication List Home Medication List Reviewed: Yes Albuterol/Ipratropium (Combivent Respimat Inhal [place]) 20 Mcg-100 Mcg/Actuation Aero, 2 PUFF INH DAILY PRN for SHORTNESS OF BREATH, (Reported) Entered as Reported by: KALPESH REYES on 09/12/22 1125 Amlodipine Besylate (Amlodipine Besylate) 5 Mg Tablet, 5 MG PO DAILY Prescribed by: DUKE JOHNSON on 09/19/22 0851 Aspirin (Aspirin EC) 81 Mg Tablet.dr 81 MG PO DAILY, (Reported) Entered as Reported by: KALPESH REYES on 08/03/22 1603 Azithromycin (Azithromycin) 250 Mg Tablet, 250 MG PO UD Prescribed by: DOC BRAUN on 01/14/23 0127 Cefdinir (Cefdinir) 300 Mg Capsule, 300 MG PO BID Prescribed by: DOC BRAUN on 01/14/23 0127 Dexamethasone (Dexamethasone) 4 Mg Tablet, 4 MG PO BID PRN for DAY BEFORE,OF AND AFTER CHEMO, (Reported) Entered as Reported by: KALPESH REYES on 09/12/22 112 Docusate Sodium (Docusate Sodium) 100 Mg Capsule, 100 MG PO BID, (Reported) Entered as Reported by: KALPESH REYES on 09/12/22 112 Fluticasone/Umeclidin/Vilanter (Trelegy Ellipta 100-62.5-25) 100-62.5 Blst.w.dev, 1 EACH IH DAILY, (Reported) Entered as Reported by: BON KNOWLES on 08/23/22 152 Folic Acid (Folic Acid) 1 Mg Tablet, 1 MG PO DAILY, (Reported) Entered as Reported by: CHRISTIAN MUSE on 09/04/22 1331 Ipratropium/Albuterol Sulfate (Iprat-Albut 0.5-3(2.5) mg/3 ml) 0.5 Mg-3 Mg (2.5 Mg Base)/3 Ml Ampul.neb, 3 ML NEB Q4H PRN for SHORTNESS OF BREATH, (Reported) Entered as Reported by: KALPESH REYES on 09/12/22 112 Lisinopril (Lisinopril) 40 Mg Tablet, 20 MG PO DAILY, (Reported) Entered as Reported by: CHRISTIAN MUSE on 09/04/22 1331 Lorazepam (Ativan) 0.5 Mg Tablet, 0.5 MG PO TID PRN for ANXIETY Prescribed by: DUKE JOHNSON on 09/19/22 0852 Metoprolol Tartrate (Metoprolol Tartrate) 100 Mg Tablet, 100 MG PO BID, (Reported) Entered as Reported by: BON KNOWLES on 08/23/22 1526 Morphine Sulfate (Morphine Sulfate ER) 15 Mg Tablet.er, 15 MG PO Q8H Prescribed by: DUKE JOHNSON on 09/19/22 0852 Oxycodone HCl (Oxycodone HCl) 5 Mg Tablet, 5 MG PO Q4H PRN for PAIN-SEVERE (8- 10), (Reported) Entered as Reported by: CHRISTIAN MUSE on 09/04/22 1329 Pantoprazole Sodium (Pantoprazole Sodium) 40 Mg Tablet.dr, 40 MG PO DAILY, (Reported) Entered as Reported by: KALPESH REYES on 09/12/22 1125 Potassium Chloride (Klor-Con M20) 20 Meq Tab.er.prt, 20 MEQ PO DAILY Prescribed by: DUKE JOHNSON on 09/19/22 0851 Promethazine HCl (Promethazine Tablet) 25 Mg Tablet, 25 MG PO Q6H PRN for NAUSEA/VOMITING Prescribed by: DUKE JOHNSON on 09/19/22 0851 Rosuvastatin Calcium (Rosuvastatin Calcium) 20 Mg Tablet, 20 MG PO DAILY, (Reported) Entered as Reported by: KALPESH REYES on 08/03/22 1603 Sennosides (Senna) 8.6 Mg Tablet, 8.6 MG PO DAILY, (Reported) Entered as Reported by: KALPESH REYES on 09/12/22 1125 Review of Systems Review of Systems Constitutional: see HPI EENTM: no symptoms reported Respiratory: see HPI Cardiovascular: no symptoms reported Gastrointestinal: no symptoms reported Genitourinary: no symptoms reported : No Musculoskeletal: no symptoms reported Skin: no symptoms reported Psychiatric/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: No Symptoms Reported Hematologic/Lymphatic: No Symptoms Reported Past Rcbngkn-Ckxfog-Fdchfv Hx Patient Social History Tobacco Use?: Yes Tobacco type used: Cigarettes Smoking Status: Current Everyday Smoker Use of E-Cig and/or Vaping dev: No Substance use?: No Alcohol Use?: No Immunizations Up To Date Tetanus Booster (TDap): Unknown Influenza Vaccine Up-to-Date: No; Not Current First/Initial COVID19 Vaccinat: 12/12/2020 [place] Second COVID19 Vaccination Noe: 01/07/2021 [place] Third COVID19 Vaccination Date: 12/01/21 [place] Seasonal Allergies Seasonal Allergies: No Past Medical History Surgery/Hospitalization HX: ABD PAIN, CA LUNG W METS Surgeries: Yes (port, skin cancer resection) Abdominal (Bowel resection), Hysterectomy Respiratory: Yes (Lung cancer) Pneumonia, COPD Currently Using CPAP: No Currently Using BIPAP: No Cardiac: Yes 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, 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 Genitourinary: Yes (NEPHROSTOMY TUBE-KIDNEY STRETCHED) Kidney Stones, UTI-Chronic Gastrointestinal: No Musculoskeletal: Yes Chronic Back Pain Endocrine: No HEENT: No Cancer: Yes (Gynecologic) Lung, Skin, Lymphoma Did You Recieve Any Treatments: Yes What Type of Treatment Did You: Chemotherapy Psychosocial: No Integumentary: No Blood Disorders: No Family Medical History No Pertinent Family Hx Physical Exam Vital Signs Vital Signs - First Documented 01/13/23 21:15 Temp 37.0 Pulse 96 Resp 26 B/P (MAP) 122/91 (101) Pulse Ox 98 O2 Delivery Nasal Cannula O2 Flow Rate 3.00 Capillary Refill : Height, Weight, BMI Height: '" Weight: lbs. oz. kg; 16.00 BMI Method: General Appearance: No Apparent Distress, WD/WN HEENT: Normal ENT Inspection, Pharynx Normal Neck: Normal Inspection; No JVD Respiratory: Lungs Clear, Normal Breath Sounds, No Accessory Muscle Use, No Respiratory Distress Cardiovascular: Regular Rate, Rhythm, No Edema, No Murmur Gastrointestinal: Non Tender, Soft Extremity: Normal Inspection, No Pedal Edema Neurologic/Psychiatric: Alert, Oriented x3, No Motor/Sensory Deficits Progress/Results/Core Measures Suspected Sepsis SIRS Temperature: Pulse: 96 Respiratory Rate: 26 Laboratory Tests 01/13/23 21:20: White Blood Count 10.3 Blood Pressure 122 /91 Mean: 101 Laboratory Tests 01/13/23 21:20: Creatinine 0.78, Platelet Count 172 Results/Orders Lab Results Laboratory Tests Test 01/13/23 21:20 01/13/23 22:05 Range/Units White Blood Count 10.3 4.3-11.0 10^3/uL Red Blood Count 3.85 3.80-5.11 10^6/uL Hemoglobin 11.2 L 11.5-16.0 g/dL Hematocrit 36 35-52 % Mean Corpuscular Volume 92 80-99 fL Mean Corpuscular Hemoglobin 29 25-34 pg Mean Corpuscular Hemoglobin Concent 32 32-36 g/dL Red Cell Distribution Width 18.2 H 10.0-14.5 % Platelet Count 172 130-400 10^3/uL Mean Platelet Volume 10.6 9.0-12.2 fL Immature Granulocyte % (Auto) 0 % Neutrophils (%) (Auto) 80 H 42-75 % Lymphocytes (%) (Auto) 10 L 12-44 % Monocytes (%) (Auto) 8 0-12 % Eosinophils (%) (Auto) 1 0-10 % Basophils (%) (Auto) 0 0-10 % Neutrophils # (Auto) 8.2 H 1.8-7.8 10^3/uL Lymphocytes # (Auto) 1.1 1.0-4.0 10^3/uL Monocytes # (Auto) 0.9 0.0-1.0 10^3/uL Eosinophils # (Auto) 0.1 0.0-0.3 10^3/uL Basophils # (Auto) 0.0 0.0-0.1 10^3/uL Immature Granulocyte # (Auto) 0.0 0.0-0.1 10^3/uL D-Dimer 0.63 H 0.00-0.49 UG/ML Sodium Level 133 L 135-145 MMOL/L Potassium Level 4.4 3.6-5.0 MMOL/L Chloride Level 100 98-107 MMOL/L Carbon Dioxide Level 22 21-32 MMOL/L Anion Gap 11 5-14 MMOL/L Blood Urea Nitrogen 15 7-18 MG/DL Creatinine 0.78 0.60-1.30 MG/DL Estimat Glomerular Filtration Rate 82 BUN/Creatinine Ratio 19 Glucose Level 99 70-105 MG/DL Calcium Level 8.7 8.5-10.1 MG/DL C-Reactive Protein High Sensitivity 2.69 H 0.00-0.50 MG/DL B-Type Natriuretic Peptide 328.0 H <100.0 PG/ML Influenza Type A (RT-PCR) Not Detected Not Detecte Influenza Type B (RT-PCR) Not Detected Not Detecte SARS-CoV-2 RNA (RT-PCR) Not Detected Not Detecte Urine Color YELLOW Urine Clarity CLEAR Urine pH 7.5 5-9 Urine Specific [place] 1.010 L 1.016-1.022 Urine Protein NEGATIVE NEGATIVE Urine Glucose (UA) NEGATIVE NEGATIVE Urine Ketones NEGATIVE NEGATIVE Urine Nitrite NEGATIVE NEGATIVE Urine Bilirubin NEGATIVE NEGATIVE Urine Urobilinogen 0.2 < = 1.0 MG/DL Urine Leukocyte Esterase TRACE H NEGATIVE Urine RBC (Auto) NEGATIVE NEGATIVE Urine RBC NONE /HPF Urine WBC 0-2 /HPF Urine Squamous Epithelial Cells 5-10 /HPF Urine Crystals NONE /LPF Urine Bacteria TRACE /HPF Urine Casts NONE /LPF Urine Mucus NEGATIVE /LPF Urine Culture Indicated NO My Orders Orders - DOC PANTOJA MD 19 Inhouse Test (01/13/23 21:17) Influenza A And B By Pcr (01/13/23 21:17) Basic Metabolic Panel (01/13/23 21:53) Bnp Gove (01/13/23 21:53) Cbc With Automated Diff (01/13/23 21:53) Hs C Reactive Protein (01/13/23 21:53) Ua Culture If Indicated (01/13/23 21:53) Chest Pa/Lat (2 View) (01/13/23 21:53) Fibrin Degradation Products (01/13/23 22:17) Ct Angio Chest W (R/O Pe) (01/13/23 22:37) Iohexol Injection (Omnipaque 350 Mg/Ml 1 (01/14/23 00:00) Sodium Chloride Flush (Catheter Flush Sy (01/14/23 00:00) Ns (Ivpb) (Sodium Chloride 0.9% Ivpb Bag (01/14/23 00:00) Ceftriaxone 1 Gm Pre-Mix (Rocephin 1 Gm (01/14/23 00:56) Albuterol Inhaler (Albuterol) (01/14/23 01:49) Medications Given in ED Current Medications Medications Dose Ordered Sig/Ade Route Start Time Stop Time Status Last Admin Dose Admin Iohexol 100 ml ONCE ONCE IV 01/14/23 00:00 01/14/23 00:01 DC 01/13/23 23:52 55 ML Sodium Chloride 10 ml NEEDED PRN IV 01/14/23 00:00 01/14/23 02:43 DC 01/13/23 23:52 10 ML Sodium Chloride 100 ml ONCE ONCE IV 01/14/23 00:00 01/14/23 00:01 DC 01/13/23 23:52 50 ML Vital Signs/I&O 01/13/23 01/13/23 01/14/23 21:15 21:15 02:04 Temp 37.0 Pulse 96 98 Resp 26 24 B/P (MAP) 122/91 (101) 134/85 Pulse Ox 98 95 O2 Delivery Nasal Cannula Nasal Cannula O2 Flow Rate 3.00 4.00 Capillary Refill : Blood Pressure Mean: 101 Progress Note #1: Progress Note Labs were reviewed including CBC, chemistry, BNP, and CRP. There was no lab evidence of significant heart failure or infection. D-dimer was modestly elevated. CT angiogram of the chest was obtained. There was no PE identified but there was question of interstitial thickening, possibly edema versus infection. She was treated with Rocephin and prescriptions for cefdinir and azithromycin were provided. Progress Note #2: Time: 01:51 Progress Note Patient did not bring her portable oxygen with her to the ER. Upon discharge she became very SOA and her sats dropped into the 70's. Family went home to get her portable oxygen tanks. Lungs are clear on exam. Patient does occasionally use albuterol nebs at home. We are giving her an albuterol MDI here. Hopefully that will additionally help her breathing on the way home. Diagnostic Imaging Diagonstic Imaging: Xray Plain Films/CT/US/NM/MRI: chest Comments 2 view chest x-ray reviewed by me. Report not yet available. No acute adverse change was appreciated when compared with prior. Diagonstic Imaging: CT Plain Films/CT/US/NM/MRI: chest Comments CT angiogram chest was reviewed by me and [facility] report reviewed. Interstitial edema or infiltrate was suspected. Regression of chest masses was noted. A new opacity was noted in the left lower lobe. Mediastinal lymph nodes were noted. See report for further details. Departure Impression Primary Impression: Pneumonia Qualified Codes: J18.9 - Pneumonia, unspecified organism Additional Impressions: Metastatic lung cancer (metastasis from lung to other site) Qualified Codes: C34.90 - Malignant neoplasm of unspecified part of unspecified bronchus or lung Shortness of breath Hypoxia Disposition: HOME, SELF-CARE Condition: Stable Departure-Patient Inst. Decision time for Depature: 01:24 Referrals: BAIRON GARNETT MD (PCP/Family) Primary Care Physician Patient Instructions: Pneumonia in Adults Add. Discharge Instructions: Based on your imaging studies, you may have developed a mild case of pneumonia. Please complete your antibiotics as prescribed and follow-up with your oncologist and/or primary care provider later this week. Continue to use oxygen as needed to keep oxygen saturations greater than 92%. Return to the emergency room if you have worsening symptoms despite following these instructions. All discharge instructions reviewed with patient and/or family. Voiced understanding. Scripts Cefdinir (Cefdinir) 300 Mg Capsule 300 MG PO BID, #18 CAP 0 Refills Prov: BRUEGGEMANN,DOC T MD 01/14/23 Azithromycin (Azithromycin) 250 Mg Tablet 250 MG PO UD, #6 TAB TAKE 2 TABLETS ON DAY ONE THEN TAKE 1 TABLET DAILY FOR FOUR MORE DAYS Prov: DOC PANTOJA MD 01/14/23 Copy Copies To 1: MONISHA MARROQUIN Copies To 2: BAIRON GARNETT MD, JOSHUA T MD Jan 13, 2023 23:43
[2023-01-14] MEDS ORDERED: CATHETER FLUSH 10 ML SYR IV PRN
[2023-01-14] MEDS ORDERED: NS 100 ML (IVPB) BAG IV ONE
[2023-01-14] MEDS ORDERED: IOHEXOL 350 MG/ML 100 ML (OMNIPAQUE 350) VIAL IV ONE
[2023-01-14] MEDS ORDERED: cefTRIAXone 1 GM PRE-MIX 50 ML IV STA (00:56)
[2023-01-14] MEDS ORDERED: CEFD300C3 PO (01:27)
[2023-01-14] MEDS ORDERED: AZIT250T12 PO (01:27)
[2023-01-14] MEDS ORDERED: RT-ALBUTEROL HFA 8.5 GM INHALER IH STA (01:49)
[2023-01-14 02:04] VITALS: BP 134/85
--- NOTE | 2023-01-14 07:01 | Diagnostic Imaging Report ---
INDICATION: Shortness of breath PA and lateral chest Right IJ Port-A-Cath tip projects over the SVC. There are coarse interstitial infiltrates in the lungs. There is no alveolar consolidation. There are no effusions or pneumothoraces. IMPRESSION: Coarse interstitial infiltrates likely due to pulmonary fibrosis. Dictated by: Dictated on workstation # [id number]
--- NOTE | 2023-01-14 07:14 | Diagnostic Imaging Report ---
Exam: CT angiography chest with intravenous contrast. Date: September 12, 2023. Indication: 72-year-old female, shortness of breath, cough. History of lung cancer. Comparison: Chest radiographs January 13, 2023. CT chest August 03, 2022. Technique: Axial CT angiographic images of the chest were obtained with intravenous contrast. Coronal and sagittal as well as 3-dimensional reformats were obtained and provided. All CT scans use one or more of the following dose optimizing techniques: automated exposure control, MA and/or KvP adjustment based on patient size and exam type or iterative reconstruction. . Findings: There is a nodular area of airspace consolidation in the right lower lobe measuring 2.6 x 2.0 cm in axial extent on axial image 95. This is a significant interval change since August 03, 2022. There is an additional area of nodular airspace consolidation in the left lower lobe measuring approximately 2.7 x 2.2 cm in axial extent on axial image 113. There previously was more nodular masslike consolidation on the prior CT chest exam measuring larger in size at 3.3 x 3.4 cm in axial extent. There is septal thickening bilaterally with a fairly symmetric appearance. There are largely linear opacities in the right upper lobe anteriorly on axial image 61 and adjacent sequential images. The previously noted right upper lobe nodule on prior axial image 62 is not currently well seen. There are bilateral additional areas of predominantly linear opacification. There is nonspecific bronchial wall thickening with a lower lobe predominance. There is no pneumothorax. There is no sizable pleural effusion. The central airways are patent. There is no identified pulmonary embolus. The heart is not enlarged. There is no identified pericardial effusion. There are atherosclerotic calcifications. There is a peripherally enhancing central low-attenuation left adrenal nodule measuring 2.9 x 2.0 cm in size. There previously was a solid left adrenal mass at this location measuring 4.5 x 3.7 cm in size. There is prominence of the right extrarenal pelvis which projects posteriorly. There appears to be at least 50% stenosis of the right renal artery. There are multilevel degenerative changes of the spine. There are compression deformities of the midthoracic spine unchanged since prior CT. There is no identified aggressive bone lesion. Impression: 1. Ill-defined nodular area of consolidation in the left lower lobe at site of previously noted mass which is decreased in size. This may reflect partial treatment related changes. 2. New nodular ill-defined area of consolidation on the right lower lobe which is nonspecific. This could relate to site of progression of neoplasm. An infectious etiology or other alveolar consolidative process is also considered. 3. Previously noted right upper lobe pulmonary nodule is no longer present. 4. Bilateral septal thickening and additional areas of interstitial opacification which may reflect interstitial edema and/or scarring. 4. Interval decrease in size of the left adrenal nodule central low-attenuation likely reflecting at least partial treatment response. 5. No identified pulmonary embolus. Dictated by: Dictated on workstation # [id number]
== END 2023-01-14 02:02 | disposition home or self-care (01) ==
LOC: EDUNIT# 21:09 → ER 21:11
DX: J18.9 Pneumonia, unspecified organism (principal); C34.90 Malignant neoplasm of unspecified part of unspecified bronchus or lung; R09.02 Hypoxemia; R79.1 Abnormal coagulation profile; F17.210 Nicotine dependence, cigarettes, uncomplicated; Z20.822 Contact with and (suspected) exposure to COVID-19
CPT/HCPCS: 36415; 71046; 71275; 80048; 81000; 83880; 85025; 85379; 86141; 87636

== ENCOUNTER 2023-01-17 20:56 | Inpatient (IN) | payer MEDICARE, MEDICAID ==
[~2023-01-17] VITALS: Ht 147 cm; Wt 44.0 kg
[~2023-01-17 20:56] MED LIST changes: +AZIT250T12 PO
--- NOTE | 2023-01-17 21:12 | ED Respiratory ---
General Chief Complaint: Respiratory Problems Stated Complaint: FEVER Nursing Triage Note: pt presents to ED via EMS from home with c/o fever and SOB. pt diagnosed with PNA on 01/13 and still taking abx. this evening, pt spiked fever of 100.8 and had increased SOB. 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 pt requiring 5L per NC at triage to maintain O2 above 90% Source: patient, EMS Exam Limitations: no limitations History of Present Illness Date Seen by Provider: Jan 17, 2023 Time Seen by Provider: 21:01 Initial Comments 72-year-old female presents to the emergency department via EMS today for fever, shortness of breath. She has been treated for pneumonia since 01/13 and states her symptoms are getting worse. Oxygen saturation on arrival was 85 to 87% on room air. She does not typically require oxygen. Fevers to 100.8 at home. She took Tylenol 1 hour prior to arrival. Notably she does have known lung cancer with metastases. She is getting palliative treatment Allergies and Home Medications Allergies Coded Allergies: fentanyl (Verified Allergy, Intermediate, 09/03/22) hallucinations codeine (Verified Allergy, Unknown, ITCH/HIVES, 09/03/22) Patient Home Medication List Home Medication List Reviewed: Yes Albuterol Sulfate (Ventolin Hfa) 1 Puff Puff, 2 PUFF INH Q4H PRN for SHORTNESS OF BREATH, (Reported) Entered as Reported by: KALPESH REYES on 01/18/23 1021 Last Action: Held Amlodipine Besylate (Amlodipine Besylate) 5 Mg Tablet, 5 MG PO DAILY, (Reported) Entered as Reported by: KALPESH REYES on 01/18/23 1017 Last Action: Continued Azithromycin (Zithromax) 250 Mg Tablet, 250 MG PO DAILY, (Reported) Entered as Reported by: KALPESH REYES on 01/18/23 101 Last Action: Held Cefuroxime Axetil (Cefuroxime) 500 Mg Tablet, 500 MG PO BID, (Reported) Entered as Reported by: KALPESH REYES on 01/18/231016 Last Action: Held Cyanocobalamin (Vitamin B-12) (Vitamin B-12) 500 Mcg Tablet, 500 MCG PO DAILY, (Reported) Entered as Reported by: KALPESH REYES on 01/18/23 101 Last Action: Held Docusate Sodium (Docusate Sodium) 100 Mg Capsule, 100 MG PO TID, (Reported) Entered as Reported by: KALPESH REYES on 09/12/22 112 Last Action: Held Fluticasone/Umeclidin/Vilanter (Trelegy Ellipta 100-62.5-25) 100-62.5 Blst.w.dev, 1 EACH IH 1200, (Reported) Entered as Reported by: BON KNOWLES on 08/23/22 152 Last Action: Converted Folic Acid (Folic Acid) 1 Mg Tablet, 1 MG PO DAILY, (Reported) Entered as Reported by: CHRISTIAN MUSE on 09/04/22 133 Last Action: Continued Ipratropium/Albuterol Sulfate (Iprat-Albut 0.5-3(2.5) mg/3 ml) 0.5 Mg-3 Mg (2.5 Mg Base)/3 Ml Ampul.neb, 3 ML NEB Q4H PRN for SHORTNESS OF BREATH, (Reported) Entered as Reported by: KALPESH REYES on 09/12/221124 Last Action: Held Lisinopril (Lisinopril) 40 Mg Tablet, 20 MG PO DAILY, (Reported) Entered as Reported by: CHRISTIAN MUSE on 09/04/22 133 Last Action: Continued Metoprolol Tartrate (Metoprolol Tartrate) 100 Mg Tablet, 100 MG PO BID, (Reported) Entered as Reported by: BON KNOWLES on 08/23/221525 Last Action: Converted Morphine Sulfate (Morphine Sulfate ER) 15 Mg Tablet.er, 15 MG PO Q8H, (Reported) Entered as Reported by: KALPESH REYES on 01/18/23 1017 Last Action: Held Multivit-Minerals/Folic Acid (Multivitamin Gummies) 200 Mcg Tab.chew, 1 EA PO DAILY, (Reported) Entered as Reported by: KALPESH REYES on 01/18/23 1017 Last Action: Held Oxycodone HCl (Oxycodone HCl) 5 Mg Tablet, 5 MG PO Q4H PRN for PAIN-SEVERE (8- 10), (Reported) Entered as Reported by: CHRISTIAN MUSE on 09/04/22 1329 Last Action: Held Pantoprazole Sodium (Pantoprazole Sodium) 40 Mg Tablet.dr, 40 MG PO 1200, (Reported) Entered as Reported by: KALPESH REYES on 09/12/221124 Last Action: Continued Promethazine HCl (Promethazine Tablet) 25 Mg Tablet, 25 MG PO Q6H PRN for NAUSEA/VOMITING-2ND LINE, (Reported) Entered as Reported by: KALPESH REYES on 01/18/23 1017 Last Action: Held Rosuvastatin Calcium (Rosuvastatin Calcium) 20 Mg Tablet, 20 MG PO HS, (Reported) Entered as Reported by: KALPESH REYES on 08/03/22 160 Last Action: Continued Discontinued Medications Albuterol/Ipratropium (Combivent Respimat Inhal [place]) 20 Mcg-100 Mcg/Actuation Aero, 2 PUFF INH DAILY PRN for SHORTNESS OF BREATH, (Reported) Discontinued Reason: No Longer Taking Entered as Reported by: KALPESH REYES on 09/12/221124 Last Action: Discontinued Amlodipine Besylate (Amlodipine Besylate) 5 Mg Tablet, 5 MG PO DAILY Discontinued Reason: No Longer Taking Prescribed by: DUKE JOHNSON on 09/19/22 0851 Last Action: Discontinued Aspirin (Aspirin EC) 81 Mg Tablet.dr, 81 MG PO DAILY, (Reported) Discontinued Reason: No Longer Taking Entered as Reported by: KALPESH REYES on 08/03/221602 Last Action: Discontinued Azithromycin (Azithromycin) 250 Mg Tablet, 250 MG PO UD Discontinued Reason: No Longer Taking Prescribed by: DOC BRAUN on 01/14/23126 Last Action: Discontinued Cefdinir (Cefdinir) 300 Mg Capsule, 300 MG PO BID Discontinued Reason: No Longer Taking Prescribed by: DOC BRAUN on 01/14/23126 Last Action: Discontinued Dexamethasone (Dexamethasone) 4 Mg Tablet, 4 MG PO BID PRN for DAY BEFORE,OF AND AFTER CHEMO, (Reported) Discontinued Reason: No Longer Taking Entered as Reported by: KALPESH REYES on 09/12/221124 Last Action: Discontinued Lorazepam (Ativan) 0.5 Mg Tablet, 0.5 MG PO TID PRN for ANXIETY Discontinued Reason: No Longer Taking Prescribed by: DUKE JOHNSON on 09/19/22 0852 Last Action: Discontinued Morphine Sulfate (Morphine Sulfate ER) 15 Mg Tablet.er, 15 MG PO Q8H Discontinued Reason: No Longer Taking Prescribed by: DUKE JOHNSON on 09/19/22851 Last Action: Discontinued Potassium Chloride (Klor-Con M20) 20 Meq Tab.er.prt, 20 MEQ PO DAILY Discontinued Reason: No Longer Taking Prescribed by: DUKE JOHNSON on 09/19/22850 Last Action: Discontinued Promethazine HCl (Promethazine Tablet) 25 Mg Tablet, 25 MG PO Q6H PRN for NAUSEA/VOMITING Discontinued Reason: No Longer Taking Prescribed by: DUKE JOHNSON on 09/19/22850 Last Action: Discontinued Sennosides (Senna) 8.6 Mg Tablet, 8.6 MG PO DAILY, (Reported) Discontinued Reason: No Longer Taking Entered as Reported by: KALPESH REYES on 09/12/221124 Last Action: Discontinued Review of Systems Review of Systems Constitutional: no symptoms reported Past Vqitkid-Ubtgug-Muftes Hx Patient Social History Tobacco Use?: No Smoking Status: Former Smoker Use of E-Cig and/or Vaping dev: No Substance use?: No Alcohol Use?: No Immunizations Up To Date Tetanus Booster (TDap): Unknown First/Initial COVID19 Vaccinat: 12/12/2020 SinglePlatform Second COVID19 Vaccination Noe: 01/07/2021 SinglePlatform Third COVID19 Vaccination Date: 12/01/21 SinglePlatform Seasonal Allergies Seasonal Allergies: No Past Medical History Surgery/Hospitalization HX: ABD PAIN, CA LUNG W METS Surgeries: Yes (port, skin cancer resection) Abdominal, Hysterectomy Respiratory: Yes (Lung cancer) Pneumonia, COPD Currently Using CPAP: No Currently Using BIPAP: No Cardiac: Yes 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, 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 Genitourinary: Yes (NEPHROSTOMY TUBE-KIDNEY STRETCHED) Kidney Stones, UTI-Chronic Gastrointestinal: No Musculoskeletal: Yes Chronic Back Pain Endocrine: No HEENT: No Cancer: Yes (Gynecologic) Lung, Skin, Lymphoma Did You Recieve Any Treatments: Yes What Type of Treatment Did You: Chemotherapy Psychosocial: No Integumentary: No Blood Disorders: No Family Medical History No Pertinent Family Hx Physical Exam Vital Signs - First Documented 01/17/23 01/17/23 21:07 21:12 Temp 38.0 Pulse 121 Resp 30 B/P (MAP) 137/83 (101) Pulse Ox 86 O2 Delivery Nasal Cannula O2 Flow Rate 2.00 FiO2 95 Capillary Refill : Less Than 3 Seconds Height: '" Weight: lbs. oz. kg; 16.00 BMI Method: General Appearance: WD/WN, no apparent distress HEENT: normal ENT inspection, pharynx normal Neck: non-tender, full range of motion, supple, normal inspection Respiratory: chest non-tender, no accessory muscle use, rhonchi, other (Bilateral rhonchi, Rales with slight increased work of breathing.) Cardiovascular: regular rate, rhythm, no murmur Gastrointestinal: normal bowel sounds, non tender, soft Extremities: normal range of motion, non-tender, normal inspection, no pedal edema, no calf tenderness, normal capillary refill Neurologic/Psychiatric: alert, normal mood/affect, oriented x 3 Skin: normal color, warm/dry Focused Exam Lactate Level 01/17/23 21:35: Lactic Acid Level 1.35 Lactic Acid Level Laboratory Tests Test 01/17/23 21:35 Lactic Acid Level 1.35 MMOL/L (0.50-2.00) Progress/Results/Core Measures Suspected Sepsis SIRS Temperature: Pulse: 121 Respiratory Rate: 30 Blood Pressure 137 /83 Mean: 101 01/17/23 21:35: Lactic Acid Level 1.35 Results/Orders Lab Results Laboratory Tests Test 01/17/23 21:35 Range/Units White Blood Count 8.4 4.3-11.0 10^3/uL Red Blood Count 2.91 L 3.80-5.11 10^6/uL Hemoglobin 8.3 #L 11.5-16.0 g/dL Hematocrit 26 L 35-52 % Mean Corpuscular Volume 90 80-99 fL Mean Corpuscular Hemoglobin 29 25-34 pg Mean Corpuscular Hemoglobin Concent 32 32-36 g/dL Red Cell Distribution Width 17.1 H 10.0-14.5 % Platelet Count 132 130-400 10^3/uL Mean Platelet Volume 9.8 9.0-12.2 fL Immature Granulocyte % (Auto) 0 % Neutrophils (%) (Auto) 82 H 42-75 % Lymphocytes (%) (Auto) 9 L 12-44 % Monocytes (%) (Auto) 8 0-12 % Eosinophils (%) (Auto) 0 0-10 % Basophils (%) (Auto) 1 0-10 % Neutrophils # (Auto) 6.9 1.8-7.8 10^3/uL Lymphocytes # (Auto) 0.7 L 1.0-4.0 10^3/uL Monocytes # (Auto) 0.7 0.0-1.0 10^3/uL Eosinophils # (Auto) 0.0 0.0-0.3 10^3/uL Basophils # (Auto) 0.0 0.0-0.1 10^3/uL Immature Granulocyte # (Auto) 0.0 0.0-0.1 10^3/uL Sodium Level 133 L 135-145 MMOL/L Potassium Level 3.8 3.6-5.0 MMOL/L Chloride Level 103 98-107 MMOL/L Carbon Dioxide Level 21 21-32 MMOL/L Anion Gap 9 5-14 MMOL/L Blood Urea Nitrogen 16 7-18 MG/DL Creatinine 0.77 0.60-1.30 MG/DL Estimat Glomerular Filtration Rate 83 BUN/Creatinine Ratio 21 Glucose Level 128 H 70-105 MG/DL Lactic Acid Level 1.35 0.50-2.00 MMOL/L Calcium Level 7.9 L 8.5-10.1 MG/DL Corrected Calcium 8.9 8.5-10.1 MG/DL Total Bilirubin 0.3 0.1-1.0 MG/DL Aspartate Amino Transf (AST/SGOT) 23 5-34 U/L Alanine Aminotransferase (ALT/SGPT) 14 0-55 U/L Alkaline Phosphatase 63 40-136 U/L Total Protein 4.7 L 6.4-8.2 GM/DL Albumin 2.7 L 3.2-4.5 GM/DL Micro Results Microbiology 01/17/23 Blood Culture - Preliminary, Resulted No growth 01/17/23 Blood Culture - Preliminary, Resulted No growth My Orders Orders - LEANNE WYMAN DO Cbc With Automated Diff (01/17/23 21:10) Comprehensive Metabolic Panel (01/17/23 21:10) Blood Culture (01/17/23 21:10) Chest 1 View, Ap/Pa Only (01/17/23 21:10) Ed Iv/Invasive Line Start (01/17/23 21:10) Vital Signs Adult Sepsis Patie Q15M (01/17/23 21:10) O2 (01/17/23 21:10) Lactic Acid Analyzer (01/17/23 21:10) Piperacillin Sodium/Tazobactam (Zosyn Vi (01/17/23 21:15) Vancomycin Injection (Vancomycin Injecti (01/17/23 21:15) Ed Admission (Communication) (01/17/23 21:40) Vital Signs/I&O 01/17/23 01/17/23 01/17/23 01/17/23 21:07 21:12 21:48 22:00 Temp 38.0 Pulse 121 111 Resp 30 18 B/P (MAP) 137/83 (101) 114/73 (87) Pulse Ox 86 96 O2 Delivery Nasal Cannula Nasal Cannula Nasal Cannula Nasal Cannula O2 Flow Rate 2.00 5.00 5.00 2.00 FiO2 95 01/17/23 22:26 Pulse 105 Resp 26 B/P (MAP) 107/68 Pulse Ox 95 O2 Delivery Nasal Cannula O2 Flow Rate 5.00 Capillary Refill : Less Than 3 Seconds Blood Pressure Mean: 101 Critical Care Note Critical Care Total Time (minutes) 40 Departure Communication (Admissions) I have independently reviewed the chest x-ray. Findings consistent with worsening pneumonia versus pulmonary edema. Her clinical exam is most consistent with pneumonia. Started on broad-spectrum antibiotics after blood cultures and lactic acid were obtained. 4 L of oxygen via nasal cannula stable on this with no respiratory distress. Her labs reviewed and relatively unremarkable. She is admitted to the hospitalist in stable condition. 2139: Spoke to Dr Johnson who accepts patient in admission. Impression Primary Impression: CAP (community acquired pneumonia) Qualified Codes: J18.9 - Pneumonia, unspecified organism Additional Impressions: Hypoxia Metastatic lung cancer (metastasis from lung to other site) Qualified Codes: C34.90 - Malignant neoplasm of unspecified part of unspecified bronchus or lung Disposition: ADMITTED INPATIENT Condition: Stable Admissions Decision to Admit Reason: Admit from ER (General) Departure-Patient Inst. Referrals: BAIRON HARRIS MD (PCP/Family) Primary Care Physician LEANNE WYMAN DO Jan 17, 2023 21:12
[2023-01-17] MEDS ORDERED: PIPERACILLIN SODIUM/TAZOBACTAM 4.5 GM in NS (IVPB) 100 ML IV ONE (21:15)
[2023-01-17] MEDS ORDERED: VANCOMYCIN INJECTION 1,000 MG in NS (IVPB) 250 ML IV ONE (21:15)
--- NOTE | 2023-01-17 21:38 | Diagnostic Imaging Report ---
EXAM: CHEST 1 VIEW, AP/PA ONLY INDICATION: Fever. Shortness of breath. COMPARISON: CTA chest and chest radiographs 01/13/2023. FINDINGS: Borderline heart size and pulmonary vascularity. Increasing interstitial and airspace opacities scattered throughout both lungs. Tiny bilateral pleural effusions versus thickening. No pneumothorax. Right IJ tunneled port CVC tip mid SVC. No acute osseous findings. IMPRESSION: Interval progression of diffuse interstitial and airspace opacities in both lungs. Findings could be infectious/inflammatory and/or due to degree of edema. There are also tiny bilateral pleural effusions or thickening, more prominent compared to the prior. Dictated by: Dictated on workstation # [id number]
[2023-01-17 21:45] LABS: BASOPHILS % (AUTO) 1 % (0-10); EOSINOPHILS % (AUTO) 0 % (0-10); HEMATOCRIT 26 % (35-52); HEMOGLOBIN 8.3 g/dL (11.5-16.0); LYMPHOCYTES # (AUTO) 0.7 10^3/uL (1.0-4.0); LYMPHOCYTES % (AUTO) 9 % (12-44); MEAN CORPUSCULAR HEMOGLOBIN 29 pg (25-34); MEAN CORPUSCULAR HGB CONC 32 g/dL (32-36); MEAN CORPUSCULAR VOLUME 90 fL (80-99); MEAN PLATELET VOLUME 9.8 fL (9.0-12.2); MONOCYTES # (AUTO) 0.7 10^3/uL (0.0-1.0); MONOCYTES % (AUTO) 8 % (0-12); NEUTROPHILS # (AUTO) 6.9 10^3/uL (1.8-7.8); NEUTROPHILS % (AUTO) 82 % (42-75); PLATELET COUNT 132 10^3/uL (130-400); WHITE BLOOD COUNT 8.4 10^3/uL (4.3-11.0)
[2023-01-17 22:01] LABS: ALBUMIN 2.7 GM/DL (3.2-4.5); POTASSIUM 3.8 MMOL/L (3.6-5.0)
[2023-01-17 22:02] LABS: CALCIUM 7.9 MG/DL (8.5-10.1)
[2023-01-17 22:04] LABS: TOTAL PROTEIN 4.7 GM/DL (6.4-8.2)
[2023-01-17 22:05] LABS: BILIRUBIN,TOTAL 0.3 MG/DL (0.1-1.0)
[2023-01-17 22:07] LABS: CREATININE SERUM 0.77 MG/DL (0.60-1.30)
[2023-01-17 22:57] VITALS: BP 137/83
[2023-01-17] MEDS ORDERED: CATHETER FLUSH 10 ML SYR IVP PRN (23:15)
[2023-01-17] MEDS ORDERED: RT-ALBUTEROL SULF 2.5 MG/3 ML PRE-MIX VIAL INH PRN (23:15)
[2023-01-17] MEDS ORDERED: NS IV 500 ML 500 ML IV PRN (23:15)
--- NOTE | 2023-01-18 01:16 | Tele-ICU Consult ---
History of Present Illness History of Present Illness Date Seen by Provider: Jan 18, 2023 Time Seen by Provider: 01:11 History of Present Illness Date of Service 01/18/2023 01:18 HPI/Events of Note (Tele-ICU Physician , consultation) Available chart/ vitals / labs / Images reviewed H&P is from ER notes Patient's information available about PMH, allergy reviewed in EMR. ROS as per chart and RN report Video assessment done using teleICU camera, rest of exam as per RN Discussed with RN. She is a 72-year-old female with past medical history of metastatic lung cancer, severe emphysema, status post small bowel resection due to perforation caused by metastatic disease now presented to the emergency room with a complaint of 4 fever. She was recently diagnosed with a pneumonia on 12/13/2022 at which time she was discharged with oral medications however they were not helping today she is found to be t achypneic hence she is admitted to the ICU for close monitoring. She has a bony lesions from metastasis hence has a chronic pain also. Impression 1. Community-acquired pneumonia 2. Metastatic lung cancer adenocarcinoma 3. Severe underlying emphysema. 4. Protein calorie malnutrition 5. 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 Tobacco abuse disorder. Recommendations 1. Continue IV vancomycin and Zosyn 2. Bronchodilator therapy 3. Continue her home medications for chronic pain 4. DVT prophylaxis. Coordination of care with primary care physician and bedside consultants. Critical care time spent on this patient today is 25 minutes. Diagnosis: A total of _ 25 minutes of critical care time was devoted to this patient, including reviewing this patient's available data, including medical history, events of note and test results. This was required to treat and/or prevent further deterioration of critical care conditions ( as above ). Service provided to a patient admitted to ICU bed via interactive E-CARE system with Page 1 of 2 NADIA SCHULTZ Via [facility] This is a permanent part of the medical record. Do not discard. 01/18/2023 01:19 VERONICA Physician - Brief Progress Note Date/Time: PID: [id number] real-time audio and video telecommunications from [facility]-ICU hub located in [place], [place] Interventions Intermediate-Pain - evaluation and management, Other: pneumonia, copd exacerbation, lung cancer Page 2 of Allergies and Home Medications Allergies Coded Allergies: fentanyl (Verified Allergy, Intermediate, 09/03/22) hallucinations codeine (Verified Allergy, Unknown, ITCH/HIVES, 09/03/22) Home Medications Albuterol/Ipratropium 20 Mcg-100 Mcg/Actuation Aero, 2 PUFF INH DAILY PRN for SHORTNESS OF BREATH, (Reported) Amlodipine Besylate 5 Mg Tablet, 5 MG PO DAILY Prescribed by: DUKE JOHNSON on 09/19/22850 Aspirin 81 Mg Tablet.dr, 81 MG PO DAILY, (Reported) Azithromycin 250 Mg Tablet, 250 MG PO UD TAKE 2 TABLETS ON DAY ONE THEN TAKE 1 TABLET DAILY FOR FOUR MORE DAYS Prescribed by: DOC BRAUN on 01/14/23126 Cefdinir 300 Mg Capsule, 300 MG PO BID Prescribed by: DOC BRAUN on 01/14/23126 Dexamethasone 4 Mg Tablet, 4 MG PO BID PRN for DAY BEFORE,OF AND AFTER CHEMO, (Reported) Docusate Sodium 100 Mg Capsule, 100 MG PO BID, (Reported) Fluticasone/Umeclidin/Vilanter 100-62.5 Blst.w.dev, 1 EACH IH DAILY, (Reported) Folic Acid 1 Mg Tablet, 1 MG PO DAILY, (Reported) Ipratropium/Albuterol Sulfate 0.5 Mg-3 Mg (2.5 Mg Base)/3 Ml Ampul.neb, 3 ML NEB Q4H PRN for SHORTNESS OF BREATH, (Reported) Lisinopril 40 Mg Tablet, 20 MG PO DAILY, (Reported) TAKES OF A 40MG TAB Lorazepam 0.5 Mg Tablet, 0.5 MG PO TID PRN for ANXIETY Prescribed by: DUKE JOHNSON on 09/19/22851 Metoprolol Tartrate 100 Mg Tablet, 100 MG PO BID, (Reported) Morphine Sulfate 15 Mg Tablet.er, 15 MG PO Q8H Prescribed by: DUKE JOHNSON on 09/19/22851 Oxycodone HCl 5 Mg Tablet, 5 MG PO Q4H PRN for PAIN-SEVERE (8-10), (Reported) Pantoprazole Sodium 40 Mg Tablet.dr, 40 MG PO DAILY, (Reported) Potassium Chloride 20 Meq Tab.er.prt, 20 MEQ PO DAILY Prescribed by: DUKE JOHNSON on 09/19/22850 Promethazine HCl 25 Mg Tablet, 25 MG PO Q6H PRN for NAUSEA/VOMITING Prescribed by: DUKE JOHNSON on 09/19/22850 Rosuvastatin Calcium 20 Mg Tablet, 20 MG PO DAILY, (Reported) Sennosides 8.6 Mg Tablet, 8.6 MG PO DAILY, (Reported) Past Medical/Social/Family Hx Patient Social History Tobacco Use?: Yes Tobacco type used: Cigarettes Substance use?: No Alcohol Use?: No Immunizations Up To Date Influenza Vaccine Up-to-Date: No; Not Current First/Initial COVID19 Vaccinat: 12/12/2020 Familiar Second COVID19 Vaccination Noe: 01/07/2021 Familiar Tetanus Booster (TDap): Unknown Hepatitis A: No Hepatitis B: No TB Skin Test: None Date of Pneumonia Vaccine: Jul 25, 2022 Current Status status: No Advance Directives: No Communicates: Verbally Primary Language: Nigerien Preferred Spoken Language: Nigerien Is interpretation needed?: No Review of Systems Constitutional: fever, malaise, weight loss Focused Exam Lactate Level 01/17/23 21:35: Lactic Acid Level 1.35 Height, Weight, BMI Height: '" Weight: lbs. oz. kg; 16.70 BMI Method: Lactic Acid Level Laboratory Tests Test 01/17/23 21:35 Lactic Acid Level 1.35 MMOL/L (0.50-2.00) Exam Exam Patient acknowledged, consented, and participated in this virtual visit which was conducted using real time audio/video Vital Signs Date Time Temp Pulse Resp B/P (MAP) Pulse Ox O2 Delivery O2 Flow Rate FiO2 01/18/23 00:47 High Flow N/C 5.00 01/18/23 00:30 90 100 High Flow N/C 7.00 01/18/23 00:03 100 High Flow N/C 7.00 01/18/23 00:00 93 99/64 (76) 100 High Flow N/C 10.00 01/17/23 23:59 98 High Flow N/C 7.00 01/17/23 23:37 High Flow N/C 10.00 01/17/23 23:30 100 107/68 (81) 90 High Flow N/C 10.00 01/17/23 23:15 105 119/72 (88) 90 High Flow N/C 10.00 01/17/23 23:00 36.5 107 20 115/77 (90) 90 High Flow N/C 10.00 01/17/23 22:57 38.0 121 92 01/17/23 22:54 109 01/17/23 22:45 107 104/80 (88) 91 High Flow N/C 10.00 01/17/23 22:26 105 26 107/68 95 Nasal Cannula 5.00 01/17/23 22:00 Nasal Cannula 2.00 01/17/23 21:48 111 18 114/73 (87) 96 Nasal Cannula 5.00 01/17/23 21:12 Nasal Cannula 5.00 95 01/17/23 21:07 38.0 121 30 137/83 (101) 86 Nasal Cannula 2.00 Height & Weight Height: '" Weight: lbs. oz. kg; 16.70 BMI Method: General Appearance: Chronically ill Capillary Refill: Less Than 3 Seconds Other comments PE PER RN Results Lab Laboratory Tests 01/17/23 21:35 Assessment/Plan Assessment/Plan ABOVE Critical Care: Critically Ill Patient Time spent with patient (mins): 25 JEREMY JOHNSON MD Jan 18, 2023 01:16
[2023-01-18] MEDS: RT-ALBUTEROL SULF 2.5 MG/3 ML PRE-MIX VIAL INH SCH ×3 (02:35→10:10)
[2023-01-18] MEDS: PIPERACILLIN SODIUM/TAZOBACTAM 4.5 GM in NS (IVPB) 100 ML IV SCH ×3 (02:53→20:52)
[2023-01-18] MEDS ORDERED: morphine ER 15 MG (MS CONTIN) TAB PO SCH (03:00)
[2023-01-18 03:16] LABS: BASOPHILS % (AUTO) 0 % (0-10); HEMOGLOBIN 8.2 g/dL (11.5-16.0); MONOCYTES # (AUTO) 0.6 10^3/uL (0.0-1.0)
[2023-01-18 03:18] LABS: EOSINOPHILS % (AUTO) 1 % (0-10); HEMATOCRIT 25 % (35-52); LYMPHOCYTES # (AUTO) 1.5 10^3/uL (1.0-4.0); LYMPHOCYTES % (AUTO) 22 % (12-44); MEAN CORPUSCULAR HEMOGLOBIN 29 pg (25-34); MEAN CORPUSCULAR HGB CONC 32 g/dL (32-36); MEAN CORPUSCULAR VOLUME 91 fL (80-99); MEAN PLATELET VOLUME 9.1 fL (9.0-12.2); MONOCYTES % (AUTO) 9 % (0-12); NEUTROPHILS # (AUTO) 4.5 10^3/uL (1.8-7.8); NEUTROPHILS % (AUTO) 67 % (42-75); PLATELET COUNT 126 10^3/uL (130-400); WHITE BLOOD COUNT 6.7 10^3/uL (4.3-11.0)
[2023-01-18 03:20] LABS: ALBUMIN 2.4 GM/DL (3.2-4.5); POTASSIUM 3.9 MMOL/L (3.6-5.0)
[2023-01-18 03:21] LABS: CALCIUM 7.8 MG/DL (8.5-10.1)
[2023-01-18 03:23] LABS: TOTAL PROTEIN 4.3 GM/DL (6.4-8.2)
[2023-01-18 03:25] LABS: BILIRUBIN,TOTAL 0.3 MG/DL (0.1-1.0)
[2023-01-18 03:26] LABS: PHOSPHORUS 3.5 MG/DL (2.3-4.7)
[2023-01-18 03:27] LABS: CREATININE SERUM 0.83 MG/DL (0.60-1.30)
[2023-01-18 03:29] LABS: MAGNESIUM 1.8 MG/DL (1.6-2.4)
[2023-01-18] MEDS: MAGNESIUM 1 GM/100 ML IVPB 100 ML IV SCH ×3 (03:41→04:53)
[2023-01-18] MEDS: POTASSIUM CL 10MEQ/50ML IVPB 50 ML IV SCH (03:41)
[2023-01-18] MEDS: KCL 20 MEQ TAB (K-DUR) PO SCH (03:42)
[2023-01-18] MEDS: CATHETER FLUSH 10 ML SYR IVP SCH ×3 (06:08→21:00)
[2023-01-18] MEDS ORDERED: KCL 20 MEQ TAB (K-DUR) PO ONE (09:00)
[2023-01-18] MEDS ORDERED: morphine ER 15 MG (MS CONTIN) TAB PO NR (10:00)
[2023-01-18] MEDS ORDERED: AZIT250T PO (10:17)
[2023-01-18] MEDS ORDERED: AMLO-250 PO (10:17)
[2023-01-18] MEDS ORDERED: CEFU500T63 PO (10:17)
[2023-01-18] MEDS ORDERED: PROM25TA14 PO (10:17)
[2023-01-18] MEDS ORDERED: CYAN500T8 PO (10:17)
[2023-01-18] MEDS ORDERED: MORP-68 PO (10:17)
[2023-01-18] MEDS ORDERED: MULT200T12 PO (10:17)
[2023-01-18] MEDS ORDERED: RT-ALBUINH INH (10:21)
--- NOTE | 2023-01-18 10:50 | Tele-ICU Progress Note ---
Subjective Date Seen by a Provider: Jan 18, 2023 Time Seen by a Provider: 10:50 Subjective/Events-last exam (Tele-ICU Physician , Progress Note ) Service provided via interactive audio and video telecommunications E-CARE system to a patient admitted to ICU bed in [facility]. Patient is seen today due to persistent need of ICU care Available chart/ vitals / labs / Images reviewed Video assessment done using teleICU camera, rest of exam as per RN Discussed with RN Events overnight : Afebrile hemodynamically stable Respiratory - 5-8l I/O = ? Drips: Pressors- no Hospital course: (01/17) 72yr old female admitted with pneumonia A/P PNA - Continue IV vancomycin and Zosyn ( given immunocompr state ) Metastatic Lung Cancer -Diagnosed on 08/03/22 >Mets to bone and L adrenal gland Severe underlying emphysema - cont br - dilators ? 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 Discussed with RN to reach out if any questions or concerns A total of 15 minutes of critical care time was devoted to this patient today, required to treat and/or prevent further deterioration of critical care condition ( as above ) . I am remotely monitoring this patient from another state. I am unable to do the bedside exam, and history/physical and pertinent information is taken from other notes in the computer and bedside staff. Sepsis Event Evaluation Height, Weight, BMI Height: '" Weight: lbs. oz. kg; 16.70 BMI Method: Focused Exam Lactate Level 01/17/23 21:35: Lactic Acid Level 1.35 Exam Exam Patient acknowledged, consented, and participated in this virtual visit which was conducted using real time audio/video Vital Signs Date Time Temp Pulse Resp B/P (MAP) Pulse Ox O2 Delivery O2 Flow Rate FiO2 01/18/23 10:10 100 High Flow N/C 8.00 01/18/23 09:00 98 132/78 (96) 90 High Flow N/C 5.00 01/18/23 08:00 36.4 01/18/23 08:00 87 97/56 (70) 99 High Flow N/C 5.00 01/18/23 07:00 97 100/61 (74) 97 High Flow N/C 5.00 01/18/23 07:00 99 01/18/23 06:17 100 High Flow N/C 5.00 01/18/23 06:00 78 109/61 (77) 100 High Flow N/C 5.00 01/18/23 05:00 86 110/64 (79) 97 High Flow N/C 5.00 01/18/23 04:00 88 104/64 (77) 97 High Flow N/C 5.00 01/18/23 04:00 98 High Flow N/C 5.00 01/18/23 03:10 36.2 01/18/23 03:00 100 105/69 (81) 92 High Flow N/C 5.00 01/18/23 02:35 97 High Flow N/C 5.00 01/18/23 02:00 85 93/62 (72) 96 High Flow N/C 5.00 01/18/23 01:00 90 106/64 (78) 96 High Flow N/C 5.00 01/18/23 01:00 90 01/18/23 00:47 High Flow N/C 5.00 01/18/23 00:30 90 100 High Flow N/C 7.00 01/18/23 00:03 100 High Flow N/C 7.00 01/18/23 00:00 93 99/64 (76) 100 High Flow N/C 10.00 01/17/23 23:59 98 High Flow N/C 7.00 01/17/23 23:37 High Flow N/C 10.00 01/17/23 23:30 100 107/68 (81) 90 High Flow N/C 10.00 01/17/23 23:15 105 119/72 (88) 90 High Flow N/C 10.00 01/17/23 23:00 36.5 107 20 115/77 (90) 90 High Flow N/C 10.00 01/17/23 22:57 38.0 121 92 01/17/23 22:54 109 01/17/23 22:45 107 104/80 (88) 91 High Flow N/C 10.00 01/17/23 22:26 105 26 107/68 95 Nasal Cannula 5.00 01/17/23 22:00 Nasal Cannula 2.00 01/17/23 21:48 111 18 114/73 (87) 96 Nasal Cannula 5.00 01/17/23 21:12 Nasal Cannula 5.00 95 01/17/23 21:07 38.0 121 30 137/83 (101) 86 Nasal Cannula 2.00 I & O 01/18/23 07:00 Intake Total 350 ml Output Total 0 ml Balance 350 ml Height & Weight Height: '" Weight: lbs. oz. kg; 16.70 BMI Method: General Appearance: Chronically ill Capillary Refill: Less Than 3 Seconds Results Lab Laboratory Tests 01/17/23 21:35 01/18/23 02:55 Assessment/Plan Assessment/Plan 1 ARELI OROPEZA MD Jan 18, 2023 10:50
[2023-01-18] MEDS: ENOXAPARIN INJECTION 30 MG/0.3 ML SYR SC SCH (11:06)
[2023-01-18] MEDS ORDERED: morphine INJ 10 MG/ML 1ML (SYR OR VIAL) IVP STA (11:41)
[2023-01-18] MEDS ORDERED: morphine INJ 4 MG/ML 1 ML (VIAL/SYRINGE) IVP STA (11:43)
[2023-01-18] MEDS: PANTOPRAZOLE 40 MG (PROTONIX) TAB PO SCH (11:50)
[2023-01-18] MEDS: meTOprolol TARTRATE 50 MG (LOPRESSOR) TAB PO SCH ×2 (11:50→20:54)
[2023-01-18] MEDS ORDERED: NON-FORMULARY MEDICATION 1 EA EA (Fluticasone/Umeclidin/Vilanter (Trelegy Ellipta 100-62.5 IH SCH (12:00)
[2023-01-18] MEDS ORDERED: FOLIC ACID 1 MG TAB PO NR (12:30)
[2023-01-18] MEDS: UMECLIDINIUM BROMIDE (INCRUSE ELLIPTA) 7'S IH SCH (13:00)
[2023-01-18] MEDS: morphine ER 15 MG (MS CONTIN) TAB PO SCH ×2 (13:48→20:54)
[2023-01-18] MEDS: RT-ALBUTEROL HFA 8.5 GM INHALER IH SCH ×3 (14:36→22:49)
[2023-01-18] MEDS: ACETAMINOPHEN 500 MG TAB (TYLENOL) PO PRN (15:37)
[2023-01-18 15:45] VITALS: BP 155/58
[2023-01-18] MEDS: RT--FLUTICASONE/SALMETEROL 232-14 (AIRDUO RespiCLICK) IH SCH (19:07)
--- NOTE | 2023-01-18 19:14 | History & Physical-Hospitalist ---
History of Present Illness HPI/Chief Complaint Lyndsey Sosa is a 72 year old female with PMH metastatic lung cancer on chemotherapy, chemotherapy induced pancytopenia, COPD, HTN, HLD, GERD, cachexia, who presented with shortness of breath. She has been having fevers. She denies cough. She has been on outpatient antibiotics but was not improving. She denies chest pain. She denies abdominal pain. She denies nausea and vomiting. She last had chemotherapy about one week ago. Source: patient Exam Limitations: no limitations Date Seen 01/18/23 Time Seen by a Provider: 09:25 Attending Physician Oscar Garnett MD PCP Admitting Physician: Petra Polanco DO Attending Physician: Fara Campos MD Referring Physician Date of Admission Jan 17, 2023 at 22:44 Home Medications & Allergies Home Medications Reviewed patient Home Medication Reconciliation performed by pharmacy medication reconciliations autobody technician and/or nursing. Patients Allergies have been reviewed. Allergies Allergies Coded Allergies fentanyl (Verified Allergy, Intermediate, 09/03/22) hallucinations codeine (Verified Allergy, Unknown, ITCH/HIVES, 09/03/22) Past Oiqjvzt-Alyppy-Spyqyw Hx Patient Social History Tobacco Use?: Yes Tobacco type used: Cigarettes Substance use?: No Alcohol Use?: No Immunizations Up To Date First/Initial COVID19 Vaccinat: 12/12/2020 [facility] Second COVID19 Vaccination Noe: 01/07/2021 PFIZER Tetanus Booster (TDap): Unknown Hepatitis A: No Hepatitis B: No Date of Pneumonia Vaccine: Jul 25, 2022 Seasonal Allergies Seasonal Allergies: No Current Status status: No Advance Directives: No Communicates: Verbally Primary Language: Niuean Preferred Spoken Language: Niuean Is interpretation needed?: No Past Medical History Surgeries: Abdominal, Hysterectomy Pneumonia, COPD Currently Using CPAP: No Currently Using BIPAP: No 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, 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: Hysterectomy Kidney Stones, UTI-Chronic Chronic Back Pain Lung, Skin, Lymphoma Did You Recieve Any Treatments: Yes What Type of Treatment Did You: Chemotherapy Blood Disorders: No Family Medical History No Pertinent Family Hx Review of Systems Constitutional: fever, malaise EENTM: no symptoms reported Respiratory: short of breath Cardiovascular: no symptoms reported Gastrointestinal: no symptoms reported Physical Exam Physical Exam Vital Signs Vital Signs - First Documented 01/17/23 01/17/23 21:07 21:12 Temp 38.0 Pulse 121 Resp 30 B/P (MAP) 137/83 (101) Pulse Ox 86 O2 Delivery Nasal Cannula O2 Flow Rate 2.00 FiO2 95 Capillary Refill : Less Than 3 Seconds Height, Weight, BMI Height: '" Weight: lbs. oz. kg; 16.70 BMI Method: General Appearance: No Apparent Distress, Chronically ill, Cachetic HEENT: PERRL/EOMI, Pharynx Normal Neck: Normal Inspection, Supple Respiratory: No Respiratory Distress, Decreased Breath Sounds, Wheezing Cardiovascular: No Murmur, Tachycardia Gastrointestinal: Normal Bowel Sounds, Non Tender, Soft Extremity: Normal Inspection, No Pedal Edema; No Inflammation Neurologic/Psychiatric: Alert, Oriented x3, Depressed Affect Skin: Normal Color, Warm/Dry Results Results/Procedures Labs Laboratory Tests 01/17/23 21:35 01/18/23 02:55 Patient resulted labs reviewed. Imaging: Reviewed Imaging Report Assessment/Plan Admission Diagnosis Sepsis due to pneumonia Admission Status: Inpatient Order (span 2 midnights) Reason for Inpatient Admission: Respiratory failure Assessment and Plan Sepsis due to pneumonia Acute on chronic respiratory failure with hypoxia Metastatic lung cancer Chemotherapy induced pancytopenia COPD Cachexia Pain of metastatic malignancy HTN HLD GERD Goals of care discussion SIRS+ with fever and tachycardia Supplemental oxygen as needed, currently 5 L MAT protocol Vanc and Zosyn IV fluids Resume home meds DNR/DNI, present on admission Diagnosis/Problems Diagnosis/Problems (1) Sepsis due to pneumonia Status: Acute (2) Acute on chronic respiratory failure with hypoxia Status: Acute (3) Metastatic lung cancer (metastasis from lung to other site) Status: Acute Qualifiers: Laterality: unspecified laterality Qualified Codes: C34.90 - Malignant neoplasm of unspecified part of unspecified bronchus or lung (4) Pancytopenia due to chemotherapy Status: Acute (5) COPD (chronic obstructive pulmonary disease) Status: Chronic (6) Pulmonary cachexia due to COPD Status: Chronic (7) HTN (hypertension) Status: Chronic (8) GERD (gastroesophageal reflux disease) Status: Chronic (9) Pain of metastatic malignancy Status: Chronic (10) HLD (hyperlipidemia) Status: Chronic FARA CAMPOS MD Jan 18, 2023 19:14
[2023-01-18 19:20] VITALS: BP 120/58
[2023-01-18] MEDS ORDERED: VANCOMYCIN 500 MG/NS 100 ML IV SCH ×2 (20:00)
[2023-01-18] MEDS: LACTATED RINGERS 1,000 ML IV SCH (20:52)
[2023-01-18] MEDS: ROSUVASTATIN 20 MG (CRESTOR) TABLET PO SCH (20:54)
[2023-01-18] MEDS ORDERED: meTOprolol TARTRATE 50 MG (LOPRESSOR) TAB PO SCH (21:00)
[2023-01-19] VITALS (8 sets, daily range): BP systolic 94–149; BP diastolic 62–79
[2023-01-19] MEDS: RT-ALBUTEROL HFA 8.5 GM INHALER IH SCH ×5 (02:39→23:31)
[2023-01-19] MEDS: PIPERACILLIN SODIUM/TAZOBACTAM 4.5 GM in NS (IVPB) 100 ML IV SCH ×3 (04:33→20:01)
[2023-01-19 05:27] LABS: BASOPHILS % (AUTO) 0 % (0-10); EOSINOPHILS # (AUTO) 0.1 10^3/uL (0.0-0.3); EOSINOPHILS % (AUTO) 1 % (0-10); HEMATOCRIT 27 % (35-52); HEMOGLOBIN 8.7 g/dL (11.5-16.0); LYMPHOCYTES # (AUTO) 0.6 10^3/uL (1.0-4.0); LYMPHOCYTES % (AUTO) 8 % (12-44); MEAN CORPUSCULAR HEMOGLOBIN 29 pg (25-34); MEAN CORPUSCULAR HGB CONC 32 g/dL (32-36); MEAN CORPUSCULAR VOLUME 90 fL (80-99); MEAN PLATELET VOLUME 9.6 fL (9.0-12.2); MONOCYTES # (AUTO) 0.5 10^3/uL (0.0-1.0); MONOCYTES % (AUTO) 7 % (0-12); NEUTROPHILS # (AUTO) 6.5 10^3/uL (1.8-7.8); NEUTROPHILS % (AUTO) 84 % (42-75); PLATELET COUNT 131 10^3/uL (130-400); WHITE BLOOD COUNT 7.8 10^3/uL (4.3-11.0)
[2023-01-19 05:32] LABS: ALBUMIN 2.7 GM/DL (3.2-4.5)
[2023-01-19 05:33] LABS: POTASSIUM 4.1 MMOL/L (3.6-5.0)
[2023-01-19 05:34] LABS: CALCIUM 8.1 MG/DL (8.5-10.1)
[2023-01-19 05:35] LABS: TOTAL PROTEIN 4.8 GM/DL (6.4-8.2)
[2023-01-19 05:37] LABS: BILIRUBIN,TOTAL 0.4 MG/DL (0.1-1.0)
[2023-01-19] MEDS: POTASSIUM CL 10MEQ/50ML IVPB 50 ML IV SCH (05:37)
[2023-01-19] MEDS: KCL 20 MEQ TAB (K-DUR) PO SCH (05:37)
[2023-01-19 05:38] LABS: PHOSPHORUS 3.1 MG/DL (2.3-4.7)
[2023-01-19 05:39] LABS: CREATININE SERUM 0.73 MG/DL (0.60-1.30)
[2023-01-19] MEDS: CATHETER FLUSH 10 ML SYR IVP SCH ×3 (05:40→21:40)
[2023-01-19] MEDS: morphine ER 15 MG (MS CONTIN) TAB PO SCH ×3 (05:40→21:40)
[2023-01-19 05:41] LABS: MAGNESIUM 1.6 MG/DL (1.6-2.4)
[2023-01-19] MEDS: LACTATED RINGERS 1,000 ML IV SCH ×3 (05:41→21:40)
[2023-01-19 05:50] LABS: BASOPHILS % (MANUAL) 1 %; LYMPHOCYTES % (MANUAL) 8 %; MONOCYTES % (MANUAL) 4 %; NEUTROPHILS % (MANUAL) 87 %; RBC MORPH NORMAL
[2023-01-19] MEDS: MAGNESIUM 1 GM/100 ML IVPB 100 ML IV SCH ×5 (06:05→09:44)
[2023-01-19] MEDS: UMECLIDINIUM BROMIDE (INCRUSE ELLIPTA) 7'S IH SCH ×2 (06:55→07:44)
[2023-01-19] MEDS: RT--FLUTICASONE/SALMETEROL 232-14 (AIRDUO RespiCLICK) IH SCH ×3 (06:55→22:07)
[2023-01-19] MEDS ORDERED: NS IV 1000 ML 1,000 ML IV SCH (08:00)
[2023-01-19] MEDS: amLODIPine 5 MG (NORVASC) TAB PO SCH (08:39)
[2023-01-19] MEDS: lisINopril 20 MG (PRINIVIL) TABLET PO SCH (08:39)
[2023-01-19] MEDS: FOLIC ACID 1 MG TAB PO SCH (08:45)
[2023-01-19] MEDS: meTOprolol TARTRATE 50 MG (LOPRESSOR) TAB PO SCH ×2 (08:46→20:06)
--- NOTE | 2023-01-19 11:44 | Progress Note - Hospitalist ---
Subjective HPI/CC On Admission Date Seen by Provider: Jan 19, 2023 Time Seen by Provider: 09:45 Lyndsey Sosa is a 72 year old female with PMH metastatic lung cancer on chemotherapy, chemotherapy induced pancytopenia, COPD, HTN, HLD, GERD, cachexia, who presented with shortness of breath. She has been having fevers. She denies cough. She has been on outpatient antibiotics but was not improving. She denies chest pain. She denies abdominal pain. She denies nausea and vomiting. She last had chemotherapy about one week ago. Subjective/Events-last exam She is short of breath. She says she had a long night. She has coughed up some green sputum. She has been able to eat and drink. Focused Exam Lactate Level 01/17/23 21:35: Lactic Acid Level 1.35 Objective Exam Vital Signs Vital Signs Date Time Temp Pulse Resp B/P (MAP) Pulse Ox O2 Delivery O2 Flow Rate FiO2 01/19/23 11:25 37.5 83 20 128/79 (95) 92 Non Rebreather 15.00 01/19/23 04:14 100 Capillary Refill : Less Than 3 Seconds General Appearance: Chronically ill, Cachetic, Moderate Distress (tachypnea, wearing non-rebreather) Respiratory: Decreased Breath Sounds, Respiratory Distress (tachypnea) Cardiovascular: Regular Rate, Rhythm, No Murmur Gastrointestinal: Normal Bowel Sounds, Soft Extremity: Normal Inspection, No Pedal Edema Neurologic/Psychiatric: Alert, Oriented x3, Depressed Affect Skin: Normal Color, Warm/Dry Results/Procedures Lab Laboratory Tests 01/19/23 05:11 Patient resulted labs reviewed. Imaging: Reviewed Imaging Report Assessment/Plan Assessment and Plan Assess & Plan/Chief Complaint Sepsis due to pneumonia Acute on chronic respiratory failure with hypoxia Metastatic lung cancer Chemotherapy induced pancytopenia COPD Cachexia Pain of metastatic malignancy HTN HLD GERD Requiring non-rebreather 15 L, worsened from 5 L nasal cannula yesterday MAT protocol Stop Vanc Continue Zosyn IV fluids Continue home meds DNR/DNI Diagnosis/Problems Diagnosis/Problems (1) Sepsis due to pneumonia Status: Acute (2) Acute on chronic respiratory failure with hypoxia Status: Acute (3) Metastatic lung cancer (metastasis from lung to other site) Status: Acute Qualifiers: Laterality: unspecified laterality Qualified Codes: C34.90 - Malignant neoplasm of unspecified part of unspecified bronchus or lung (4) Pancytopenia due to chemotherapy Status: Acute (5) COPD (chronic obstructive pulmonary disease) Status: Chronic (6) Pulmonary cachexia due to COPD Status: Chronic (7) HTN (hypertension) Status: Chronic (8) GERD (gastroesophageal reflux disease) Status: Chronic (9) Pain of metastatic malignancy Status: Chronic (10) HLD (hyperlipidemia) Status: Chronic FARA CAMPOS MD Jan 19, 2023 11:44
[2023-01-19] MEDS: PANTOPRAZOLE 40 MG (PROTONIX) TAB PO SCH (12:21)
[2023-01-19] MEDS: ENOXAPARIN INJECTION 30 MG/0.3 ML SYR SC SCH (12:22)
[2023-01-19] MEDS: ACETAMINOPHEN 500 MG TAB (TYLENOL) PO PRN ×2 (14:02→21:40)
[2023-01-19] MEDS ORDERED: TROUGH ORDER-PHARMACY XX NR (19:00)
[2023-01-19] MEDS: ROSUVASTATIN 20 MG (CRESTOR) TABLET PO SCH (20:06)
[2023-01-20] MEDS: RT-ALBUTEROL HFA 8.5 GM INHALER IH SCH ×6 (02:41→22:45)
[2023-01-20 03:44] VITALS: BP_SYST 128; BP_DIAS 73; BP_DIAS 76
[2023-01-20] MEDS: PIPERACILLIN SODIUM/TAZOBACTAM 4.5 GM in NS (IVPB) 100 ML IV SCH ×3 (04:15→19:37)
[2023-01-20 05:47] LABS: BASOPHILS # (AUTO) 0.1 10^3/uL (0.0-0.1); BASOPHILS % (AUTO) 1 % (0-10); EOSINOPHILS # (AUTO) 0.1 10^3/uL (0.0-0.3); EOSINOPHILS % (AUTO) 2 % (0-10); HEMATOCRIT 28 % (35-52); HEMOGLOBIN 9.1 g/dL (11.5-16.0); LYMPHOCYTES # (AUTO) 0.4 10^3/uL (1.0-4.0); LYMPHOCYTES % (AUTO) 6 % (12-44); MEAN CORPUSCULAR HEMOGLOBIN 29 pg (25-34); MEAN CORPUSCULAR HGB CONC 33 g/dL (32-36); MEAN CORPUSCULAR VOLUME 90 fL (80-99); MEAN PLATELET VOLUME 9.3 fL (9.0-12.2); MONOCYTES # (AUTO) 0.5 10^3/uL (0.0-1.0); MONOCYTES % (AUTO) 7 % (0-12); NEUTROPHILS # (AUTO) 5.8 10^3/uL (1.8-7.8); NEUTROPHILS % (AUTO) 85 % (42-75); PLATELET COUNT 130 10^3/uL (130-400); WHITE BLOOD COUNT 6.9 10^3/uL (4.3-11.0)
[2023-01-20 06:11] LABS: ALBUMIN 2.2 GM/DL (3.2-4.5); BILIRUBIN,TOTAL 0.5 MG/DL (0.1-1.0); CALCIUM 8.3 MG/DL (8.5-10.1); CREATININE SERUM 0.64 MG/DL (0.60-1.30); MAGNESIUM 1.9 MG/DL (1.6-2.4); PHOSPHORUS 3.4 MG/DL (2.3-4.7); POTASSIUM 3.6 MMOL/L (3.6-5.0); TOTAL PROTEIN 4.4 GM/DL (6.4-8.2)
[2023-01-20] MEDS: POTASSIUM CL 10MEQ/50ML IVPB 50 ML IV SCH (06:22)
[2023-01-20] MEDS: MAGNESIUM 1 GM/100 ML IVPB 100 ML IV SCH (06:23)
[2023-01-20] MEDS: KCL 20 MEQ TAB (K-DUR) PO SCH (06:23)
[2023-01-20] MEDS ORDERED: MAGNESIUM 1 GM/100 ML IVPB 100 ML IV ONE ×2 (06:30→07:30)
[2023-01-20] MEDS: morphine ER 15 MG (MS CONTIN) TAB PO SCH ×3 (06:50→20:39)
[2023-01-20] MEDS: CATHETER FLUSH 10 ML SYR IVP SCH ×3 (06:50→20:39)
[2023-01-20] MEDS: RT--FLUTICASONE/SALMETEROL 232-14 (AIRDUO RespiCLICK) IH SCH ×2 (07:22→22:45)
[2023-01-20] MEDS: UMECLIDINIUM BROMIDE (INCRUSE ELLIPTA) 7'S IH SCH (07:22)
[2023-01-20 07:43] VITALS: BP 137/78
[2023-01-20] MEDS: lisINopril 20 MG (PRINIVIL) TABLET PO SCH (08:00)
[2023-01-20] MEDS ORDERED: KCL 20 MEQ TAB (K-DUR) PO ONE (08:00)
[2023-01-20] MEDS: meTOprolol TARTRATE 50 MG (LOPRESSOR) TAB PO SCH ×2 (08:00→20:39)
[2023-01-20] MEDS: FOLIC ACID 1 MG TAB PO SCH (08:00)
[2023-01-20] MEDS: amLODIPine 5 MG (NORVASC) TAB PO SCH (08:00)
[2023-01-20] MEDS ORDERED: predniSONE 20 MG TAB PO ONE (09:30)
[2023-01-20] MEDS: LACTATED RINGERS 1,000 ML IV SCH (09:32)
--- NOTE | 2023-01-20 09:34 | Progress Note - Hospitalist ---
Subjective HPI/CC On Admission Date Seen by Provider: Jan 20, 2023 Lyndsey Sosa is a 72 year old female with PMH metastatic lung cancer on chemotherapy, chemotherapy induced pancytopenia, COPD, HTN, HLD, GERD, cachexia, who presented with shortness of breath. She has been having fevers. She denies cough. She has been on outpatient antibiotics but was not improving. She denies chest pain. She denies abdominal pain. She denies nausea and vomiting. She last had chemotherapy about one week ago. Subjective/Events-last exam Pt reports doing ok this morning. Breathing better now that she is on vapotherm. States she had worn it previously and it burned but is not burning her now. She is wondering if she will ever get better. We discussed difficulties of treatment sometimes with patients on chemo with lung cancer and concomitant pneumonia. She expressed understanding. Focused Exam Lactate Level 01/17/23 21:35: Lactic Acid Level 1.35 Objective Exam Vital Signs Vital Signs Date Time Temp Pulse Resp B/P (MAP) Pulse Ox O2 Delivery O2 Flow Rate FiO2 01/20/23 08:22 90 Vapotherm 25.00 100 01/20/23 07:43 36.4 100 20 137/78 (97) Capillary Refill : Less Than 3 Seconds General Appearance: No Apparent Distress, Chronically ill, Thin Respiratory: Decreased Breath Sounds; No Wheezing Cardiovascular: Regular Rate, Rhythm, No Murmur Gastrointestinal: Normal Bowel Sounds, Non Tender, Soft Extremity: No Pedal Edema Neurologic/Psychiatric: Alert, Oriented x3 Results/Procedures Lab Laboratory Tests 01/20/23 05:35 Patient resulted labs reviewed. Imaging: Reviewed Imaging Report Assessment/Plan Assessment and Plan Assess & Plan/Chief Complaint Sepsis due to pneumonia Acute on chronic respiratory failure with hypoxia Metastatic lung cancer Chemotherapy induced pancytopenia COPD Cachexia Pain of metastatic malignancy HTN HLD GERD Now on vapotherm- will add steroids MAT protocol Continue Zosyn IV fluids, decrease rate Continue home meds DNR/DNI- confirmed with her today 01/20 Consider palliative consult if not improvement over the weekend Dr Marroquin consulted, appreciate recs DVt ppx: Lovenox Diet: regular RONEN PÉREZ MD Jan 20, 2023 09:34
[2023-01-20] MEDS: PANTOPRAZOLE 40 MG (PROTONIX) TAB PO SCH (11:23)
[2023-01-20] MEDS: ENOXAPARIN INJECTION 30 MG/0.3 ML SYR SC SCH (11:23)
[2023-01-20 11:48] VITALS: BP 123/76
[2023-01-20] MEDS: ACETAMINOPHEN 500 MG TAB (TYLENOL) PO PRN (13:31)
[2023-01-20] MEDS: LORazepam 0.5 MG (ATIVAN) TABLET PO PRN ×2 (14:18→20:39)
--- NOTE | 2023-01-20 14:24 | CONSULTATION REPORT ---
DATE OF SERVICE: 01/20/2023 The patient is admitted to room 419. PHYSICIAN REQUESTING CONSULTATION: Gabrielle Linder. IMPRESSION: 1. A 72-year-old female admitted with pneumonia/sepsis. 2. History of metastatic adenocarcinoma of the lung, status post previous treatment with combined chemoimmunotherapy with good response and currently on maintenance therapy with pembrolizumab. 3. Significant chronic obstructive pulmonary disease and continued tobacco abuse. 4. Home oxygen dependence. RECOMMENDATIONS: 1. Continue aggressive treatment of pneumonia in anemia compromised patient as you are doing. 2. Continue aggressive management of COPD with bronchodilators. Consider pulse dose steroid therapy. 3. Continue oxygen supplementation to maintain oxygen saturation more than 90%. 4. Agree with maintaining DNR/DNI status. 5. We will follow the patient with you. BRIEF HISTORY: The patient is a 72-year-old female with significant COPD and tobacco abuse, who was diagnosed with metastatic adenocarcinoma of the lung in 07/2022. She was started on treatment with carboplatin, Alimta and pembrolizumab regimen for 4 cycles with an excellent response in 11/2022. Treatment changed to single agent pembrolizumab as maintenance as the PD-L1 TPS was 30%. Previously, she had small bowel perforation requiring resection of jejunum and ileum due to metastatic adenocarcinoma of lung primary. The patient presented to the emergency room in late December with a febrile illness and was discharged home with oral antibiotics. She presented back to the hospital with worsening shortness of breath and continued febrile illness and was admitted with evidence of pneumonia. She is currently on Zosyn and vancomycin along with bronchodilators and oxygen supplementation. Oncology consultation requested for concurrent followup. PAST MEDICAL HISTORY: Significant for metastatic adenocarcinoma of the lung with bilateral adrenal, bone and subcutaneous metastasis as well as peritoneal/GI metastasis, history of cervical cancer at 21 years of age requiring TAHBSO, hypertension, COPD, lymphoma and renal insufficiency. 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 FAMILY HISTORY: Significant for her brother who was diagnosed with prostate cancer. Sister with diabetes mellitus. SOCIAL HISTORY: The patient is and currently lives in [place] with her sister since early 2021. She has an adult daughter who lives in [place]. 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 More than 50-60 pack year history of tobacco use and using few cigarettes daily now. No significant alcohol or recreational drug use. REVIEW OF SYSTEMS: Significant for dyspnea on exertion and orthopnea. She has generalized aches and pains due to the metastatic disease, which is controlled with pain medications. Appetite is fair and weight has declined gradually. No chest pain or palpitations. No diarrhea, hematochezia, or melena, but tendency for constipation due to pain medications, which is controlled with laxatives. Rest of the review of systems unremarkable. PHYSICAL EXAMINATION: GENERAL: Today showed an elderly female, thin appearing, awake and oriented, in moderate respiratory distress. VITAL SIGNS: Temperature was 37.3, pulse rate of 104, respirations 20, blood pressure 123/76 with oxygen saturation of 92% on Vapotherm. HEENT: Normocephalic. Extraocular muscles intact. Conjunctivae slightly pale. Oral mucosa moist. NECK: Supple with no JVD. No cervical, supraclavicular or axillary lymphadenopathy palpable. CHEST: Symmetrical with diminished breath sounds bilaterally. No wheezes heard. CARDIOVASCULAR: Borderline tachycardic, regular with no murmurs. ABDOMEN: Soft, nontender with no hepatosplenomegaly or other masses palpable. EXTREMITIES: Showed no edema. Previously noted large right buttock masses, not palpable. NEUROLOGIC: Showed no focal motor deficits. CBC done today showed WBC 6.9, hemoglobin 9.1, platelet count 130,000 with neutrophil count 5.8, lymphocyte count 0.4 and monocyte count 0.5. Chemistry panel showed normal electrolytes. BUN was 12 and creatinine 0.64 with GFR 95 mL per minute. Liver function studies were within normal limits. Albumin was low at 2.2. Blood cultures drawn on 01/17/2023 with no growth. Chest x-ray done on 01/17/2023 with interval progression of diffuse interstitial and airspace opacities in both lungs. This was felt consistent with infectious/inflammatory process. Tiny bilateral pleural effusions compared to previous exam. Thank you for allowing me to participate in this patient's care. I have discussed the case with Dr. Linder by phone today. CC: Dr. Bonzo - requested, unable to deliver. Job ID: [id number] DocumentID: [id number] Dictated Date: 01/20/2023 13:28:42 Bridal Stylist Sales Consultant Date: 01/20/2023 14:22:00 Dictated By: MONISHA MONTANO MD [facility]CH HOSPITALJavier
[2023-01-20] MEDS ORDERED: RT-ALBUTEROL/IPRATROPIUM 3 ML (DUONEB) VIAL INH PRN (15:00)
[2023-01-20] MEDS ORDERED: methylPREDNISolone 125 MG (Solu-MEDROL) VIAL IVP ONE (15:00)
--- NOTE | 2023-01-20 15:00 | Tele-ICU Progress Note ---
Subjective Date Seen by a Provider: Jan 20, 2023 Subjective/Events-last exam This virtual visit was conducted using real time audio/video. 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 On home O2 at 2LPM. DNR/DNI Recent events: Admitted 01/17. Transferred now from floor failing Vapotherm and is anxious. PMH: as above plus HTN. PE: VSS. Tachpnea. Cachectic. O2 sat 90% on HFNC HEENT: No obvious masses, adenopathy or JVD. Chest: Diminished on auscultation. CV: RRR S1 S2 No murmur or added sounds. Abd: Non-tender. Bowel sounds Y. : Unremarkable. Vo Y. STAIN WIPER/psychiatric: Grossly intact. No obvious focal findings. Extremities: No edema. Capillary refill < 3 seconds. Skin: unremarkable. Results: Decreased Hb 9.1, Alb 2.2. CXR: Very hyperinflated with B infilts.. Available chart/ vitals / labs / images reviewed. Video assessment done using teleICU camera, rest of exam as per RN. A/P: Respiratory insufficiency: Continue present management with BIPAP, albut., pred. Will add Duonebs and1 dose IV Medrol Monitor for increasing oxygenation needs. DNR/DNI. Critical Care: critically ill patient. Cont. abx, norv., lisin., PPI, metop., Judy. Discussed with BERNARDA Alfonso and Dr. Linder. Asked RN to reach out to eICU if any questions or concerns later. Time spent with patient/coordination of care with other health professionals (mins): 20 Sepsis Event Evaluation Height, Weight, BMI Height: '" Weight: lbs. oz. kg; 17.86 BMI Method: Focused Exam Lactate Level 01/17/23 21:35: Lactic Acid Level 1.35 Exam Exam Patient acknowledged, consented, and participated in this virtual visit which was conducted using real time audio/video Vital Signs Date Time Temp Pulse Resp B/P (MAP) Pulse Ox O2 Delivery O2 Flow Rate FiO2 01/20/23 14:00 37.3 01/20/23 14:00 94 Vapotherm 40.00 100 01/20/23 13:33 94 Non Rebreather 30.00 100 01/20/23 13:31 38.2 01/20/23 11:48 37.3 104 20 123/76 (92) 92 Vapotherm 100.00 26.00 01/20/23 10:27 92 Vapotherm 25.00 100 01/20/23 08:22 90 Vapotherm 25.00 100 01/20/23 07:43 36.4 100 20 137/78 (97) 91 Vapotherm 100.00 30.00 01/20/23 07:23 96 Non Rebreather 14.00 01/20/23 03:44 36.9 71 18 128/73 (91) 96 Non Rebreather 12.00 01/20/23 02:40 93 Non Rebreather 14.00 01/19/23 23:37 36.6 81 20 131/68 (89) 94 Non Rebreather 12.00 01/19/23 23:31 98 Non Rebreather 14.00 01/19/23 20:00 Non Rebreather 15.00 01/19/23 19:49 36.3 106 19 120/70 (87) 94 OxyMask 15.00 01/19/23 19:37 99 Non Rebreather 15.00 01/19/23 16:31 97 Non Rebreather 15.00 01/19/23 15:46 36.1 89 18 94/62 (73) 93 Non Rebreather 15.00 I & O 01/20/23 07:00 Intake Total 960 ml Output Total 2700 ml Balance -1740 ml Height & Weight Height: '" Weight: lbs. oz. kg; 17.86 BMI Method: General Appearance: No Apparent Distress, Chronically ill, Thin HEENT: PERRL/EOMI, Pharynx Normal Neck: Normal Inspection, Supple Respiratory: Decreased Breath Sounds; No Wheezing Cardiovascular: Regular Rate, Rhythm, No Murmur Capillary Refill: Less Than 3 Seconds Extremity: No Pedal Edema Neurologic/Psychiatric: Alert, Oriented x3 Skin: Normal Color, Warm/Dry Results Lab Laboratory Tests 01/19/23 05:11 01/20/23 05:35 Assessment/Plan Assessment/Plan See free text. Critical Care: Critically Ill Patient VINOD KAUR MD Jan 20, 2023 15:00
[2023-01-20 15:24] VITALS: BP 109/73
[2023-01-20] MEDS: ROSUVASTATIN 20 MG (CRESTOR) TABLET PO SCH (20:39)
[2023-01-21] MEDS: RT-ALBUTEROL HFA 8.5 GM INHALER IH SCH ×6 (02:21→21:59)
[2023-01-21] MEDS: LACTATED RINGERS 1,000 ML IV SCH ×2 (03:13→23:26)
[2023-01-21] MEDS: PIPERACILLIN SODIUM/TAZOBACTAM 4.5 GM in NS (IVPB) 100 ML IV SCH ×3 (03:13→20:00)
[2023-01-21 03:30] LABS: EOSINOPHILS % (AUTO) 0 % (0-10); HEMATOCRIT 25 % (35-52); LYMPHOCYTES # (AUTO) 0.3 10^3/uL (1.0-4.0); MONOCYTES # (AUTO) 0.2 10^3/uL (0.0-1.0)
[2023-01-21 03:31] LABS: BASOPHILS % (AUTO) 0 % (0-10); HEMOGLOBIN 7.9 g/dL (11.5-16.0); LYMPHOCYTES % (AUTO) 6 % (12-44); MEAN CORPUSCULAR HEMOGLOBIN 29 pg (25-34); MEAN CORPUSCULAR HGB CONC 32 g/dL (32-36); MEAN CORPUSCULAR VOLUME 90 fL (80-99); MEAN PLATELET VOLUME 9.6 fL (9.0-12.2); MONOCYTES % (AUTO) 4 % (0-12); NEUTROPHILS # (AUTO) 4.4 10^3/uL (1.8-7.8); NEUTROPHILS % (AUTO) 90 % (42-75); PLATELET COUNT 155 10^3/uL (130-400); WHITE BLOOD COUNT 4.9 10^3/uL (4.3-11.0)
[2023-01-21 03:38] LABS: ALBUMIN 2.3 GM/DL (3.2-4.5); POTASSIUM 4.3 MMOL/L (3.6-5.0)
[2023-01-21 03:39] LABS: CALCIUM 8.1 MG/DL (8.5-10.1)
[2023-01-21 03:40] LABS: TOTAL PROTEIN 4.6 GM/DL (6.4-8.2)
[2023-01-21 03:42] LABS: BILIRUBIN,TOTAL 0.3 MG/DL (0.1-1.0)
[2023-01-21 03:43] LABS: PHOSPHORUS 3.5 MG/DL (2.3-4.7)
[2023-01-21 03:44] LABS: CREATININE SERUM 0.65 MG/DL (0.60-1.30)
[2023-01-21 03:47] LABS: MAGNESIUM 1.9 MG/DL (1.6-2.4)
[2023-01-21] MEDS: POTASSIUM CL 10MEQ/50ML IVPB 50 ML IV SCH (04:09)
[2023-01-21] MEDS: MAGNESIUM 1 GM/100 ML IVPB 100 ML IV SCH ×2 (04:09→04:24)
[2023-01-21] MEDS: KCL 20 MEQ TAB (K-DUR) PO SCH (04:09)
[2023-01-21] MEDS: CATHETER FLUSH 10 ML SYR IVP SCH ×3 (04:09→21:21)
[2023-01-21] MEDS: predniSONE 20 MG TAB PO SCH (06:09)
[2023-01-21] MEDS: morphine ER 15 MG (MS CONTIN) TAB PO SCH ×3 (06:09→21:07)
--- NOTE | 2023-01-21 08:21 | Diagnostic Imaging Report ---
EXAMINATION: Chest radiograph, portable AP view. DATE: 01/21/2023 8:11 AM. INDICATION: 72-year-old female, shortness of breath, pneumonia. COMPARISON: January 17, 2023. FINDINGS: There is a right-sided port catheter with the tip overlying the mid SVC. Heart size and mediastinal contours are unchanged. There is no identified pneumothorax. There is likely at least a small right pleural effusion. There is potentially a small left pleural effusion. There are multifocal bilateral interstitial and/or alveolar opacities. IMPRESSION: Essentially unchanged multifocal bilateral interstitial and/or alveolar opacities with probable small right and potential small left pleural effusion. Dictated by: Dictated on workstation # [id number]
[2023-01-21] MEDS: meTOprolol TARTRATE 50 MG (LOPRESSOR) TAB PO SCH ×2 (08:30→20:01)
[2023-01-21] MEDS: amLODIPine 5 MG (NORVASC) TAB PO SCH (08:30)
[2023-01-21] MEDS: lisINopril 20 MG (PRINIVIL) TABLET PO SCH (08:30)
[2023-01-21] MEDS: FOLIC ACID 1 MG TAB PO SCH (08:30)
[2023-01-21] MEDS: LORazepam 0.5 MG (ATIVAN) TABLET PO PRN ×3 (08:35→20:01)
[2023-01-21] MEDS: RT--FLUTICASONE/SALMETEROL 232-14 (AIRDUO RespiCLICK) IH SCH ×2 (08:42→21:59)
[2023-01-21] MEDS: UMECLIDINIUM BROMIDE (INCRUSE ELLIPTA) 7'S IH SCH (08:42)
--- NOTE | 2023-01-21 09:25 | Tele-ICU Progress Note ---
Subjective Date Seen by a Provider: Jan 21, 2023 Time Seen by a Provider: 09:25 Subjective/Events-last exam (Tele-ICU Physician , consultation) Available chart/ vitals / labs / Images reviewed H&P is from ER notes Patient's information available about PMH, allergy reviewed in EMR. ROS as per chart and RN report Video assessment done using teleICU camera, rest of exam as per RN Discussed with RN. She is a 72-year-old female with past medical history of metastatic lung cancer, severe emphysema status postchemotherapy admitted with pneumonia and acute respiratory failure. Currently she is on Vapotherm 20 over 65 L. Hemodynamically stable. Impression 1. Community-acquired pneumonia slightly improved 2. Acute hypoxic respiratory failure secondary to pneumonia and emphysema 3. COPD exacerbation slowly improving 4. Chronic pain syndrome due to malignancy 5. Tobacco abuse disorder. Recommendations 1. Continue Vapotherm and wean FiO2 as tolerated 2. Continue IV Zosyn per primary care 3. Bronchodilator therapy 4. Continue prednisone and wean as tolerated 5. Pain management. She is a DNR and DNI status and her prognosis is poor Coordination of care with the primary care physician at the bedside consultants Sepsis Event Evaluation Height, Weight, BMI Height: '" Weight: lbs. oz. kg; 18.55 BMI Method: Exam Exam Patient acknowledged, consented, and participated in this virtual visit which was conducted using real time audio/video Vital Signs Date Time Temp Pulse Resp B/P (MAP) Pulse Ox O2 Delivery O2 Flow Rate FiO2 01/21/23 09:00 89 17 151/94 (116) 97 Vapotherm 20.00 65.00 01/21/23 08:00 87 11 123/87 (103) 89 Vapotherm 20.00 65.00 01/21/23 07:51 36.3 01/21/23 07:00 74 17 126/74 (101) 91 Vapotherm 20.00 65.00 01/21/23 07:00 76 01/21/23 06:00 76 17 120/72 (88) 93 Vapotherm 20.00 65.00 01/21/23 05:00 79 17 133/77 (95) 97 Vapotherm 20.00 65.00 01/21/23 04:24 Vapotherm 20.00 65.00 01/21/23 04:00 72 16 135/84 (101) 94 Vapotherm 20.00 55.00 01/21/23 03:20 Vapotherm 20.00 55.00 01/21/23 03:15 97 Vapotherm 20.00 65 01/21/23 03:10 36.3 Vapotherm 20.00 65.00 01/21/23 03:00 79 12 137/81 (99) 97 Vapotherm 20.00 65.00 01/21/23 02:21 95 Vapotherm 20.00 65 01/21/23 02:00 75 15 132/77 (95) 97 Vapotherm 20.00 65.00 01/21/23 01:05 84 01/21/23 01:00 76 18 127/76 (93) 98 Vapotherm 20.00 65.00 01/21/23 00:00 81 16 107/68 (81) 98 Vapotherm 20.00 65.00 01/20/23 23:05 36.2 Vapotherm 20.00 65.00 01/20/23 23:05 94 Vapotherm 20.00 65 01/20/23 23:00 92 18 108/69 (82) 96 Vapotherm 20.00 65.00 01/20/23 22:45 96 Vapotherm 20.00 65 01/20/23 22:00 86 24 107/64 (78) 95 Vapotherm 20.00 65.00 01/20/23 21:00 87 18 111/66 (81) 98 Vapotherm 20.00 65.00 01/20/23 20:00 93 20 117/73 (88) 96 Vapotherm 20.00 65.00 01/20/23 19:30 91 Vapotherm 20.00 65 01/20/23 19:28 Vapotherm 20.00 65.00 01/20/23 19:00 36.4 92 16 120/74 (89) 97 Vapotherm 20.00 80.00 01/20/23 18:59 93 01/20/23 18:36 95 Vapotherm 20.00 80 01/20/23 18:00 102 25 113/69 (93) 92 Vapotherm 25.00 100.00 01/20/23 17:00 100 12 91/59 (70) 97 Vapotherm 25.00 100.00 01/20/23 16:38 107 01/20/23 16:35 95 Vapotherm 25.00 100 01/20/23 16:34 37.2 106 22 104/57 (73) 95 25.00 100.00 01/20/23 16:00 97 Vapotherm 25.00 100 01/20/23 15:24 36.0 110 22 109/73 (85) 86 Vapotherm 40.00 01/20/23 14:00 37.3 01/20/23 14:00 94 Vapotherm 40.00 100 01/20/23 13:33 94 Non Rebreather 30.00 100 01/20/23 13:31 38.2 01/20/23 11:48 37.3 104 20 123/76 (92) 92 Vapotherm 100.00 26.00 01/20/23 10:27 92 Vapotherm 25.00 100 I & O 01/21/23 07:00 Intake Total 2800 ml Output Total 2450 ml Balance 350 ml Height & Weight Height: '" Weight: lbs. oz. kg; 18.55 BMI Method: General Appearance: No Apparent Distress, Chronically ill, Thin HEENT: PERRL/EOMI, Pharynx Normal Neck: Normal Inspection, Supple Respiratory: Decreased Breath Sounds; No Wheezing Cardiovascular: Regular Rate, Rhythm, No Murmur Capillary Refill: Less Than 3 Seconds Gastrointestinal: normal bowel sounds, non tender, soft Extremity: No Pedal Edema Neurologic/Psychiatric: Alert, Oriented x3 Skin: Normal Color, Warm/Dry Other comments PE PER RN Results Lab Laboratory Tests 01/20/23 05:35 01/21/23 03:09 Assessment/Plan Assessment/Plan ABOVE Critical Care: Critically Ill Patient Time spent with patient (mins): 20 JEREMY JOHNSON MD Jan 21, 2023 09:25
--- NOTE | 2023-01-21 09:40 | Progress Note - Hospitalist ---
Subjective HPI/CC On Admission Date Seen by Provider: Jan 21, 2023 Lyndsey Sosa is a 72 year old female with PMH metastatic lung cancer on chemotherapy, chemotherapy induced pancytopenia, COPD, HTN, HLD, GERD, cachexia, who presented with shortness of breath. She has been having fevers. She denies cough. She has been on outpatient antibiotics but was not improving. She denies chest pain. She denies abdominal pain. She denies nausea and vomiting. She last had chemotherapy about one week ago. Subjective/Events-last exam Pt repors doing ok today. Breathing about the same. Did transfer to the ICU as she was maxed on Vapotherm yesterday. Anticipated BiPAP need but she did ok with out. Objective Exam Vital Signs Vital Signs Date Time Temp Pulse Resp B/P (MAP) Pulse Ox O2 Delivery O2 Flow Rate FiO2 01/21/23 09:00 89 17 151/94 (116) 97 Vapotherm 20.00 65.00 01/21/23 07:51 36.3 01/21/23 03:15 65 Capillary Refill : Less Than 3 Seconds General Appearance: No Apparent Distress, Chronically ill, Thin Respiratory: No Accessory Muscle Use, Decreased Breath Sounds; No Wheezing; Other (on Vapotherm) Cardiovascular: Regular Rate, Rhythm, No JVD, No Murmur Gastrointestinal: Non Tender, Soft Neurologic/Psychiatric: Alert, Oriented x3 Results/Procedures Lab Laboratory Tests 01/21/23 03:09 Patient resulted labs reviewed. Imaging: Reviewed Imaging Report Assessment/Plan Assessment and Plan Assess & Plan/Chief Complaint Sepsis due to pneumonia Acute on chronic respiratory failure with hypoxia Metastatic lung cancer Chemotherapy induced pancytopenia COPD Cachexia Pain of metastatic malignancy HTN HLD GERD Maxed on Vapotherm yesterday and now weaning done Low threshold for BiPAP Will probably need precedex is she goes on BiPAP due to anxiety MAT protocol Continue Zosyn IV fluids Continue home meds DNR/DNI- confirmed with her today /4 Consider palliative consult if no improvement over the weekend Dr Marroquin consulted, appreciate recs Discussed with him, patient on Keytruda and had good response so far Continue steroids DVT ppx: Lovenox Diet: regular Critical Care Critically Ill Patient RONEN PÉREZ MD Jan 21, 2023 09:40
[2023-01-21] MEDS: ENOXAPARIN INJECTION 30 MG/0.3 ML SYR SC SCH (11:50)
[2023-01-21] MEDS: PANTOPRAZOLE 40 MG (PROTONIX) TAB PO SCH (11:50)
[2023-01-21] MEDS: ROSUVASTATIN 20 MG (CRESTOR) TABLET PO SCH (20:00)
[2023-01-21] MEDS: MELATONIN 3 MG TABLET PO SCH (22:57)
[2023-01-22 02:04] VITALS: BP_SYST 137; BP_SYST 140; BP_DIAS 83; BP_DIAS 85
[2023-01-22] MEDS: PIPERACILLIN SODIUM/TAZOBACTAM 4.5 GM in NS (IVPB) 100 ML IV SCH ×3 (04:00→20:43)
[2023-01-22 04:16] LABS: BASOPHILS % (AUTO) 0 % (0-10); EOSINOPHILS % (AUTO) 1 % (0-10); HEMATOCRIT 27 % (35-52); HEMOGLOBIN 8.4 g/dL (11.5-16.0); LYMPHOCYTES # (AUTO) 0.6 10^3/uL (1.0-4.0); LYMPHOCYTES % (AUTO) 7 % (12-44); MEAN CORPUSCULAR HEMOGLOBIN 29 pg (25-34); MEAN CORPUSCULAR HGB CONC 32 g/dL (32-36); MEAN CORPUSCULAR VOLUME 90 fL (80-99); MEAN PLATELET VOLUME 9.2 fL (9.0-12.2); MONOCYTES # (AUTO) 0.5 10^3/uL (0.0-1.0); MONOCYTES % (AUTO) 6 % (0-12); NEUTROPHILS # (AUTO) 6.7 10^3/uL (1.8-7.8); NEUTROPHILS % (AUTO) 86 % (42-75); PLATELET COUNT 167 10^3/uL (130-400); WHITE BLOOD COUNT 7.9 10^3/uL (4.3-11.0)
[2023-01-22 04:29] LABS: ALBUMIN 2.4 GM/DL (3.2-4.5); POTASSIUM 3.7 MMOL/L (3.6-5.0)
[2023-01-22 04:30] LABS: CALCIUM 8.3 MG/DL (8.5-10.1)
[2023-01-22 04:31] LABS: TOTAL PROTEIN 4.8 GM/DL (6.4-8.2)
[2023-01-22 04:33] LABS: BILIRUBIN,TOTAL 0.2 MG/DL (0.1-1.0)
[2023-01-22] MEDS: POTASSIUM CL 10MEQ/50ML IVPB 50 ML IV SCH (04:34)
[2023-01-22] MEDS: KCL 20 MEQ TAB (K-DUR) PO SCH (04:34)
[2023-01-22 04:35] LABS: CREATININE SERUM 0.78 MG/DL (0.60-1.30); PHOSPHORUS 2.8 MG/DL (2.3-4.7)
[2023-01-22 04:38] LABS: MAGNESIUM 1.6 MG/DL (1.6-2.4)
[2023-01-22] MEDS: MAGNESIUM 1 GM/100 ML IVPB 100 ML IV SCH ×5 (04:53→08:00)
[2023-01-22] MEDS: morphine ER 15 MG (MS CONTIN) TAB PO SCH ×3 (05:56→22:53)
[2023-01-22] MEDS: predniSONE 20 MG TAB PO SCH (06:00)
[2023-01-22] MEDS ORDERED: KCL 20 MEQ TAB (K-DUR) PO ONE (06:00)
[2023-01-22] MEDS: CATHETER FLUSH 10 ML SYR IVP SCH ×3 (06:30→20:43)
[2023-01-22] MEDS: RT--FLUTICASONE/SALMETEROL 232-14 (AIRDUO RespiCLICK) IH SCH ×2 (07:05→19:03)
[2023-01-22] MEDS: RT-ALBUTEROL HFA 8.5 GM INHALER IH SCH ×5 (07:05→22:53)
[2023-01-22] MEDS: amLODIPine 5 MG (NORVASC) TAB PO SCH (07:56)
[2023-01-22] MEDS: ONDANSETRON 4 MG/2 ML (SDV) Z0FRAN IV PRN (07:56)
[2023-01-22] MEDS: FOLIC ACID 1 MG TAB PO SCH (07:57)
[2023-01-22] MEDS: LORazepam 0.5 MG (ATIVAN) TABLET PO PRN ×3 (07:57→20:48)
[2023-01-22] MEDS: meTOprolol TARTRATE 50 MG (LOPRESSOR) TAB PO SCH ×2 (07:57→20:42)
[2023-01-22] MEDS: lisINopril 20 MG (PRINIVIL) TABLET PO SCH (07:57)
[2023-01-22] MEDS: NICOTINE 7 MG (NICODERM) PATCH TD SCH (08:58)
--- NOTE | 2023-01-22 10:29 | Progress Note - Hospitalist ---
Subjective HPI/CC On Admission Date Seen by Provider: Jan 22, 2023 Lyndsey Sosa is a 72 year old female with PMH metastatic lung cancer on chemotherapy, chemotherapy induced pancytopenia, COPD, HTN, HLD, GERD, cachexia, who presented with shortness of breath. She has been having fevers. She denies cough. She has been on outpatient antibiotics but was not improving. She denies chest pain. She denies abdominal pain. She denies nausea and vomiting. She last had chemotherapy about one week ago. Subjective/Events-last exam Pt reports feeling well. She knows her oxygen saat is low but does not feel it at all. She is eating breakfast. Objective Exam Vital Signs Vital Signs Date Time Temp Pulse Resp B/P (MAP) Pulse Ox O2 Delivery O2 Flow Rate FiO2 01/22/23 10:00 82 15 111/75 (87) 95 Vapotherm 30.00 100.00 01/22/23 07:06 100 01/22/23 02:04 38.0 Capillary Refill : Less Than 3 Seconds General Appearance: Chronically ill, Thin Respiratory: No Crackles; Decreased Breath Sounds; No Wheezing Cardiovascular: Regular Rate, Rhythm, No Murmur Gastrointestinal: Normal Bowel Sounds, Non Tender, Soft Neurologic/Psychiatric: Alert, Oriented x3 Results/Procedures Lab Laboratory Tests 01/22/23 04:05 Patient resulted labs reviewed. Imaging: Reviewed Imaging Report Assessment/Plan Assessment and Plan Assess & Plan/Chief Complaint Sepsis due to pneumonia Acute on chronic respiratory failure with hypoxia Metastatic lung cancer Chemotherapy induced pancytopenia COPD Cachexia Pain of metastatic malignancy HTN HLD GERD Does not tolerate hi glow very well of Vapotherm but doing ok on 30lpm at 100% (Sats 87-88 while I was in room while she was eating) Low threshold for BiPAP if she can tolerate Will probably need precedex is she goes on BiPAP due to anxiety MAT protocol Continue Zosyn Continue home meds DNR/DNI- confirmed with her /4 Dr Marroquin consulted, appreciate recs Discussed with him, patient on Keytruda and had good response so far Continue steroids May be a good candidate for [place] if unable to wean Vapotherm further. DVT ppx: Lovenox Diet: regular Critical Care Critically Ill Patient RONEN PÉREZ MD Jan 22, 2023 10:29
[2023-01-22] MEDS: UMECLIDINIUM BROMIDE (INCRUSE ELLIPTA) 7'S IH SCH (10:46)
--- NOTE | 2023-01-22 10:50 | Diagnostic Imaging Report ---
EXAMINATION: Chest, 1 view. HISTORY: Hypoxia. COMPARISON: 01/21/2023. FINDINGS: Stable right port. Increasing interstitial and alveolar opacities are seen throughout the lungs with stable small right pleural effusion. No pneumothorax. Stable cardiac silhouette. IMPRESSION: 1. Worsening diffuse edema and/or infection throughout the lungs. 2. Stable small right pleural effusion. Dictated by: Dictated on workstation # [id number]
[2023-01-22] MEDS: ACETAMINOPHEN 500 MG TAB (TYLENOL) PO PRN ×2 (12:09→20:42)
[2023-01-22] MEDS: ENOXAPARIN INJECTION 30 MG/0.3 ML SYR SC SCH (12:10)
[2023-01-22] MEDS: PANTOPRAZOLE 40 MG (PROTONIX) TAB PO SCH (12:12)
--- NOTE | 2023-01-22 15:17 | Tele-ICU Progress Note ---
Subjective Date Seen by a Provider: Jan 22, 2023 Time Seen by a Provider: 09:29 Subjective/Events-last exam (Tele-ICU Physician , Progress Note ) Service provided via interactive audio and video telecommunications E-CARE system to a patient admitted to ICU bed in [facility]. Patient is seen today due to persistent need of ICU care Available chart/ vitals / labs / Images reviewed Video assessment done using teleICU camera, rest of exam as per RN Discussed with RN Events overnight : Afebrile hemodynamically stable Respiratory - 5-8l I/O = pos Drips: LR 50 Pressors- no Hospital course: (01/17) 72yr old female admitted with pneumonia- transferrred to medical floow AM (01/20) transfered back for increased O2 demands. 01/22/ VT 20L 100& A/P Acute resp failure- Vt 20 L 80 % - ordered cxr , BNP and PCT - suspect VO , might need diuretics - check Ddimer - if BNP wnl might consider to persue thromboembolic dxz w/up PNA - Continue IV vancomycin and Zosyn ( given immunocompr state ) Metastatic Lung Cancer -Diagnosed on 08/03/22 >Mets to bone and L adrenal gland Severe underlying emphysema - cont br - dilators -cont steroids po Anxiety - ativan prn Chronic pain syndrome due to malignancy - cont po meds Lines : Right IJ tunneled port CVC , (Central Line Necessity Reviewed) Vo:void OG: Nutrition: po Analgesia: Anxiety/ delirium VTE Prophylaxis: lovenox Stress Ulcer Prophylaxis: na Plans in collaboration with bedside consultants and IM MDs. Discussed with RN to reach out if any questions or concerns A total of 31minutes of critical care time was devoted to this patient today, required to treat and/or prevent further deterioration of critical care condition ( as above ) . I am remotely monitoring this patient from another state. I am unable to do the bedside exam, and history/physical and pertinent information is taken from other notes in the computer and bedside staff. Sepsis Event Evaluation Height, Weight, BMI Height: '" Weight: lbs. oz. kg; 19.66 BMI Method: Exam Exam Patient acknowledged, consented, and participated in this virtual visit which was conducted using real time audio/video Vital Signs Date Time Temp Pulse Resp B/P (MAP) Pulse Ox O2 Delivery O2 Flow Rate FiO2 01/22/23 14:24 93 Vapotherm 25.00 100 01/22/23 14:00 90 26 105/67 (80) 99 Vapotherm 30.00 100.00 01/22/23 13:00 92 20 107/82 (90) 97 Vapotherm 30.00 100.00 01/22/23 12:18 93 01/22/23 12:00 92 24 128/97 (107) 97 Vapotherm 30.00 100.00 01/22/23 11:00 82 18 127/71 (89) 98 Vapotherm 30.00 100.00 01/22/23 10:47 89 Vapotherm 25.00 100 01/22/23 10:00 82 15 111/75 (87) 95 Vapotherm 30.00 100.00 01/22/23 09:00 86 15 112/62 (79) 92 Vapotherm 30.00 100.00 01/22/23 08:00 108 12 131/84 (100) 89 Vapotherm 30.00 100.00 01/22/23 07:17 110 01/22/23 07:06 81 Vapotherm 30.00 100 01/22/23 07:00 108 19 152/85 (107) 86 Vapotherm 30.00 100.00 01/22/23 06:18 Vapotherm 20.00 100.00 01/22/23 06:04 163/112 (129) 01/22/23 06:00 112 24 171/130 (144) 85 Vapotherm 20.00 90.00 01/22/23 05:00 96 19 152/91 (111) 93 Vapotherm 20.00 90.00 01/22/23 04:16 94 Vapotherm 20.00 90 01/22/23 04:00 104 19 158/94 (115) 89 Vapotherm 20.00 90.00 01/22/23 03:00 98 22 152/84 (106) 90 Vapotherm 20.00 90.00 01/22/23 02:28 96 Vapotherm 25.00 90 01/22/23 02:04 38.0 121 96 90 01/22/23 02:00 107 24 134/83 (100) 88 Vapotherm 20.00 90.00 01/22/23 01:00 96 14 140/85 (103) 96 Vapotherm 20.00 90.00 01/22/23 00:57 36.9 Vapotherm 20.00 90.00 01/22/23 00:21 101 01/22/23 00:00 98 20 134/84 (101) 96 Vapotherm 25.00 90.00 01/21/23 23:59 92 Vapotherm 20.00 80 01/21/23 23:50 Vapotherm 25.00 90.00 01/21/23 23:00 100 13 158/101 (120) 96 Vapotherm 25.00 100.00 01/21/23 22:07 Vapotherm 25.00 100.00 01/21/23 22:05 100 Vapotherm 20.00 91 01/21/23 22:04 86 Vapotherm 20.00 80 01/21/23 22:00 98 15 138/90 (106) 90 Vapotherm 25.00 80.00 01/21/23 21:00 99 18 142/86 (104) 95 Vapotherm 25.00 80.00 01/21/23 20:00 92 Vapotherm 20.00 80 01/21/23 20:00 108 14 104/92 (96) 95 Vapotherm 25.00 80.00 01/21/23 19:57 37.2 01/21/23 19:00 110 12 133/77 (95) 94 Vapotherm 25.00 80.00 01/21/23 18:58 91 Vapotherm 20.00 80 01/21/23 18:57 101 01/21/23 18:00 100 13 136/83 (92) 94 Vapotherm 25.00 80.00 01/21/23 17:00 86 24 139/88 (107) 97 Vapotherm 25.00 80.00 01/21/23 16:36 94 Vapotherm 20.00 80 01/21/23 16:00 96 13 119/71 (83) Vapotherm 25.00 80.00 I & O 01/22/23 07:00 Intake Total 2580 ml Output Total 3875 ml Balance -1295 ml Height & Weight Height: '" Weight: lbs. oz. kg; 19.66 BMI Method: General Appearance: Chronically ill, Thin HEENT: PERRL/EOMI, Pharynx Normal Neck: Normal Inspection, Supple Respiratory: No Crackles; Decreased Breath Sounds; No Wheezing Cardiovascular: Regular Rate, Rhythm, No Murmur Capillary Refill: Less Than 3 Seconds Gastrointestinal: normal bowel sounds, non tender, soft Extremity: No Pedal Edema Neurologic/Psychiatric: Alert, Oriented x3 Skin: Normal Color, Warm/Dry Results Lab Laboratory Tests 01/21/23 03:09 01/22/23 04:05 Assessment/Plan Assessment/Plan 1 ARELI OROPEZA MD Jan 22, 2023 15:17
[2023-01-22] MEDS ORDERED: FUROSEMIDE 40 MG/4 ML INJ (LASIX) IVP NR (16:45)
[2023-01-22] MEDS: MELATONIN 3 MG TABLET PO SCH (20:42)
[2023-01-22] MEDS: ROSUVASTATIN 20 MG (CRESTOR) TABLET PO SCH (20:42)
[2023-01-23] MEDS: RT-ALBUTEROL HFA 8.5 GM INHALER IH SCH ×6 (02:51→21:47)
[2023-01-23 04:24] LABS: BASOPHILS % (AUTO) 0 % (0-10); EOSINOPHILS % (AUTO) 1 % (0-10); HEMATOCRIT 26 % (35-52); HEMOGLOBIN 8.3 g/dL (11.5-16.0); LYMPHOCYTES # (AUTO) 0.4 10^3/uL (1.0-4.0); LYMPHOCYTES % (AUTO) 7 % (12-44); MEAN CORPUSCULAR HEMOGLOBIN 28 pg (25-34); MEAN CORPUSCULAR HGB CONC 32 g/dL (32-36); MEAN CORPUSCULAR VOLUME 89 fL (80-99); MEAN PLATELET VOLUME 9.1 fL (9.0-12.2); MONOCYTES # (AUTO) 0.4 10^3/uL (0.0-1.0); MONOCYTES % (AUTO) 8 % (0-12); NEUTROPHILS # (AUTO) 4.5 10^3/uL (1.8-7.8); NEUTROPHILS % (AUTO) 83 % (42-75); PLATELET COUNT 150 10^3/uL (130-400); WHITE BLOOD COUNT 5.4 10^3/uL (4.3-11.0)
[2023-01-23] MEDS: PIPERACILLIN SODIUM/TAZOBACTAM 4.5 GM in NS (IVPB) 100 ML IV SCH ×3 (04:34→20:02)
[2023-01-23 04:38] LABS: ALBUMIN 2.4 GM/DL (3.2-4.5); POTASSIUM 3.4 MMOL/L (3.6-5.0)
[2023-01-23 04:39] LABS: CALCIUM 8.1 MG/DL (8.5-10.1)
[2023-01-23 04:40] LABS: TOTAL PROTEIN 4.7 GM/DL (6.4-8.2)
[2023-01-23 04:42] LABS: BILIRUBIN,TOTAL 0.2 MG/DL (0.1-1.0)
[2023-01-23 04:44] LABS: CREATININE SERUM 0.83 MG/DL (0.60-1.30)
[2023-01-23] MEDS: POTASSIUM CL 10MEQ/50ML IVPB 50 ML IV SCH (04:45)
[2023-01-23] MEDS: KCL 20 MEQ TAB (K-DUR) PO SCH (04:46)
[2023-01-23 04:48] LABS: MAGNESIUM 1.9 MG/DL (1.6-2.4)
[2023-01-23] MEDS: LORazepam 0.5 MG (ATIVAN) TABLET PO PRN ×3 (04:56→20:02)
[2023-01-23] MEDS: ONDANSETRON 4 MG/2 ML (SDV) Z0FRAN IV PRN (05:44)
[2023-01-23] MEDS: MAGNESIUM 1 GM/100 ML IVPB 100 ML IV SCH ×3 (05:48→06:51)
[2023-01-23] MEDS: morphine ER 15 MG (MS CONTIN) TAB PO SCH ×3 (06:08→22:07)
[2023-01-23] MEDS: predniSONE 20 MG TAB PO SCH (06:08)
[2023-01-23] MEDS: CATHETER FLUSH 10 ML SYR IVP SCH ×3 (06:09→22:07)
[2023-01-23] MEDS: UMECLIDINIUM BROMIDE (INCRUSE ELLIPTA) 7'S IH SCH (06:19)
[2023-01-23] MEDS: RT--FLUTICASONE/SALMETEROL 232-14 (AIRDUO RespiCLICK) IH SCH ×2 (06:19→18:46)
[2023-01-23] MEDS ORDERED: KCL 20 MEQ TAB (K-DUR) PO ONE (08:00)
[2023-01-23] MEDS: amLODIPine 5 MG (NORVASC) TAB PO SCH (08:57)
[2023-01-23] MEDS: lisINopril 20 MG (PRINIVIL) TABLET PO SCH (08:57)
[2023-01-23] MEDS: NICOTINE 7 MG (NICODERM) PATCH TD SCH (08:58)
[2023-01-23] MEDS: FOLIC ACID 1 MG TAB PO SCH (08:58)
[2023-01-23] MEDS: meTOprolol TARTRATE 50 MG (LOPRESSOR) TAB PO SCH ×2 (08:58→20:02)
[2023-01-23] MEDS: NICOTINE PATCH REMOVAL TP SCH (09:07)
--- NOTE | 2023-01-23 10:41 | Tele-ICU Progress Note ---
Subjective Date Seen by a Provider: Jan 23, 2023 Time Seen by a Provider: 10:41 Subjective/Events-last exam (Tele-ICU Physician , Progress Note ) Service provided via interactive audio and video telecommunications E-CARE system to a patient admitted to ICU bed in [facility]. Patient is seen today due to persistent need of ICU care Available chart/ vitals / labs / Images reviewed Video assessment done using teleICU camera, rest of exam as per RN Discussed with RN Events overnight : Afebrile hemodynamically stable Respiratory - 5-8l I/O = pos Drips: LR 50 Pressors- no Hospital course: (01/17) 72yr old female admitted with pneumonia- transferrred to medical floow AM (01/20) transfered back for increased O2 demands. 01/22/ VT 20L 100& 01/23 - VT 25L 80 % A/P Acute resp failure- VT 25L 80 % - suspect VO - keepin neg fluid status - check Ddimer - if BNP wnl might consider to persue thromboembolic dxz w/up PNA - Continue IV vancomycin and Zosyn ( given immunocompr state ) Metastatic Lung Cancer -Diagnosed on 08/03/22 >Mets to bone and L adrenal gland Severe underlying emphysema - cont br - dilators -cont steroids po Anxiety - ativan prn Chronic pain syndrome due to malignancy - cont po meds Lines : Right IJ tunneled port CVC , (Central Line Necessity Reviewed) Vo: void OG: Nutrition: po Analgesia: Anxiety/ delirium VTE Prophylaxis: lovenox 30 Stress Ulcer Prophylaxis: na Plans in collaboration with bedside consultants and IM MDs. Discussed with RN to reach out if any questions or concerns A total of 31minutes of critical care time was devoted to this patient today, required to treat and/or prevent further deterioration of critical care condition ( as above ) . I am remotely monitoring this patient from another state. I am unable to do the bedside exam, and history/physical and pertinent information is taken from other notes in the computer and bedside staff. Sepsis Event Evaluation Height, Weight, BMI Height: '" Weight: lbs. oz. kg; 18.04 BMI Method: Exam Exam Patient acknowledged, consented, and participated in this virtual visit which was conducted using real time audio/video Vital Signs Date Time Temp Pulse Resp B/P (MAP) Pulse Ox O2 Delivery O2 Flow Rate FiO2 01/23/23 10:12 94 Vapotherm 25.00 80 01/23/23 09:15 Vapotherm 25.00 80.00 01/23/23 09:00 104 26 134/83 (100) 88 Vapotherm 30.00 80.00 01/23/23 08:15 Vapotherm 30.00 80.00 01/23/23 08:00 105 22 120/80 (93) 87 Vapotherm 20.00 100.00 01/23/23 07:56 36.6 01/23/23 07:19 99 01/23/23 07:00 102 18 125/87 (100) 93 Vapotherm 20.00 100.00 01/23/23 06:20 100 Vapotherm 20.00 100 01/23/23 06:00 89 18 131/84 (100) 91 Vapotherm 20.00 100.00 01/23/23 05:00 90 12 161/96 (117) 92 Vapotherm 20.00 100.00 01/23/23 04:32 36.3 01/23/23 04:31 96 Vapotherm 20.00 100 01/23/23 04:00 85 16 144/82 (102) 85 Vapotherm 20.00 100.00 01/23/23 03:00 89 21 131/77 (95) 89 Vapotherm 20.00 100.00 01/23/23 02:52 97 Vapotherm 20.00 100 01/23/23 02:00 80 21 139/89 (106) 99 Vapotherm 20.00 100.00 01/23/23 01:00 79 15 135/82 (99) 97 Vapotherm 20.00 100.00 01/23/23 01:00 79 01/23/23 00:00 36.2 01/23/23 00:00 80 18 136/80 (98) 93 Vapotherm 20.00 100.00 01/22/23 23:59 94 Vapotherm 20.00 100 01/22/23 23:00 85 12 109/57 (74) 100 Vapotherm 20.00 100.00 01/22/23 22:53 100 Vapotherm 25.00 100 01/22/23 22:00 77 20 148/83 (104) 100 Vapotherm 20.00 100.00 01/22/23 21:00 101 17 123/82 (96) 90 Vapotherm 20.00 100.00 01/22/23 20:55 95 Vapotherm 20.00 100 01/22/23 20:00 101 17 117/79 (92) 100 Vapotherm 20.00 100.00 01/22/23 19:34 36.3 01/22/23 19:07 93 Vapotherm 25.00 100 01/22/23 19:00 93 37 133/105 (114) 97 Vapotherm 20.00 100.00 01/22/23 19:00 93 01/22/23 17:59 Vapotherm 20.00 100.00 01/22/23 17:00 86 18 132/73 (92) 100 Vapotherm 25.00 100.00 01/22/23 16:09 Vapotherm 25.00 100.00 01/22/23 16:02 36.5 01/22/23 16:00 98 Vapotherm 25.00 100 01/22/23 16:00 86 17 119/70 (86) 100 Vapotherm 30.00 100.00 01/22/23 15:00 97 10 114/99 (104) 99 Vapotherm 30.00 100.00 01/22/23 14:24 93 Vapotherm 25.00 100 01/22/23 14:00 90 26 105/67 (80) 99 Vapotherm 30.00 100.00 01/22/23 13:00 92 20 107/82 (90) 97 Vapotherm 30.00 100.00 01/22/23 12:18 93 01/22/23 12:00 92 24 128/97 (107) 97 Vapotherm 30.00 100.00 01/22/23 12:00 94 Vapotherm 25.00 100 01/22/23 11:00 82 18 127/71 (89) 98 Vapotherm 30.00 100.00 01/22/23 10:47 89 Vapotherm 25.00 100 I & O 01/23/23 07:00 Intake Total 2505 ml Output Total 4525 ml Balance -2020 ml Height & Weight Height: '" Weight: lbs. oz. kg; 18.04 BMI Method: General Appearance: Chronically ill, Thin HEENT: PERRL/EOMI, Pharynx Normal Neck: Normal Inspection, Supple Respiratory: No Crackles; Decreased Breath Sounds; No Wheezing Cardiovascular: Regular Rate, Rhythm, No Murmur Capillary Refill: Less Than 3 Seconds Gastrointestinal: normal bowel sounds, non tender, soft Extremity: No Pedal Edema Neurologic/Psychiatric: Alert, Oriented x3 Skin: Normal Color, Warm/Dry Results Lab Laboratory Tests 01/22/23 04:05 01/23/23 04:15 Assessment/Plan Assessment/Plan 1 ARELI OROPEZA MD Jan 23, 2023 10:41
[2023-01-23] MEDS: PANTOPRAZOLE 40 MG (PROTONIX) TAB PO SCH (11:31)
[2023-01-23] MEDS: ENOXAPARIN INJECTION 30 MG/0.3 ML SYR SC SCH (11:31)
--- NOTE | 2023-01-23 11:39 | Progress Note - Hospitalist ---
Subjective HPI/CC On Admission Date Seen by Provider: Jan 23, 2023 Lyndsey Sosa is a 72 year old female with PMH metastatic lung cancer on chemotherapy, chemotherapy induced pancytopenia, COPD, HTN, HLD, GERD, cachexia, who presented with shortness of breath. She has been having fevers. She denies cough. She has been on outpatient antibiotics but was not improving. She denies chest pain. She denies abdominal pain. She denies nausea and vomiting. She last had chemotherapy about one week ago. Subjective/Events-last exam Pt reports feeling about the same. Discussed her oxygen requirement with her and that we have been unable to wean her so far and she may benefit from LTACH if not able to wean further over the next few days. She is agreeable to that plan if needed. Objective Exam Vital Signs Vital Signs Date Time Temp Pulse Resp B/P (MAP) Pulse Ox O2 Delivery O2 Flow Rate FiO2 01/23/23 11:00 94 13 125/80 (95) 94 Vapotherm 25.00 80.00 01/23/23 10:12 80 01/23/23 07:56 36.6 Capillary Refill : Less Than 3 Seconds General Appearance: No Apparent Distress, Chronically ill, Thin Respiratory: No Crackles; Decreased Breath Sounds; No Wheezing; Other (on vapotherm) Cardiovascular: Regular Rate, Rhythm, No Murmur Neurologic/Psychiatric: Alert, Oriented x3 Results/Procedures Lab Laboratory Tests 01/23/23 04:15 Patient resulted labs reviewed. Imaging: Reviewed Imaging Report Assessment/Plan Assessment and Plan Assess & Plan/Chief Complaint Sepsis due to pneumonia Acute on chronic respiratory failure with hypoxia Metastatic lung cancer Chemotherapy induced pancytopenia COPD Cachexia Pain of metastatic malignancy HTN HLD GERD Weaning Vapotherm done and at 25lpm at 80% I anticipate she will need a longer wean given her complex medical history and would likely benefit from an LTACH MAT protocol Continue Zosyn Continue home meds DNR/DNI- confirmed with her 01/20 Dr Marroquin consulted, appreciate recs Discussed with him, patient on Keytruda and had good response so far Continue steroids Negative 3L yesterday and already -600mL today, hold off on further lasix unless respiratory status worsens DVT ppx: Lovenox Diet: regular Critical Care Critically Ill Patient RONEN PÉREZ MD Jan 23, 2023 11:39
[2023-01-23] MEDS: MELATONIN 3 MG TABLET PO SCH (20:01)
[2023-01-23] MEDS: ROSUVASTATIN 20 MG (CRESTOR) TABLET PO SCH (20:02)
[2023-01-24] MEDS: RT-ALBUTEROL HFA 8.5 GM INHALER IH SCH ×7 (02:43→22:10)
[2023-01-24] MEDS: PIPERACILLIN SODIUM/TAZOBACTAM 4.5 GM in NS (IVPB) 100 ML IV SCH ×3 (04:03→20:39)
[2023-01-24 04:18] LABS: BASOPHILS % (AUTO) 0 % (0-10); EOSINOPHILS # (AUTO) 0.1 10^3/uL (0.0-0.3); EOSINOPHILS % (AUTO) 1 % (0-10); HEMATOCRIT 26 % (35-52); HEMOGLOBIN 8.2 g/dL (11.5-16.0); LYMPHOCYTES # (AUTO) 0.4 10^3/uL (1.0-4.0); LYMPHOCYTES % (AUTO) 7 % (12-44); MEAN CORPUSCULAR HEMOGLOBIN 29 pg (25-34); MEAN CORPUSCULAR HGB CONC 32 g/dL (32-36); MEAN CORPUSCULAR VOLUME 91 fL (80-99); MEAN PLATELET VOLUME 9.5 fL (9.0-12.2); MONOCYTES # (AUTO) 0.5 10^3/uL (0.0-1.0); MONOCYTES % (AUTO) 8 % (0-12); NEUTROPHILS # (AUTO) 5.1 10^3/uL (1.8-7.8); NEUTROPHILS % (AUTO) 83 % (42-75); PLATELET COUNT 147 10^3/uL (130-400); WHITE BLOOD COUNT 6.2 10^3/uL (4.3-11.0)
[2023-01-24 04:34] LABS: ALBUMIN 2.3 GM/DL (3.2-4.5); BILIRUBIN,TOTAL 0.2 MG/DL (0.1-1.0); CALCIUM 7.5 MG/DL (8.5-10.1); CREATININE SERUM 0.84 MG/DL (0.60-1.30); MAGNESIUM 1.8 MG/DL (1.6-2.4); PHOSPHORUS 3.1 MG/DL (2.3-4.7); POTASSIUM 4.4 MMOL/L (3.6-5.0); TOTAL PROTEIN 4.5 GM/DL (6.4-8.2)
[2023-01-24] MEDS: POTASSIUM CL 10MEQ/50ML IVPB 50 ML IV SCH (05:09)
[2023-01-24] MEDS: MAGNESIUM 1 GM/100 ML IVPB 100 ML IV SCH ×3 (05:09→07:26)
[2023-01-24] MEDS: KCL 20 MEQ TAB (K-DUR) PO SCH (05:09)
[2023-01-24] MEDS: LORazepam 0.5 MG (ATIVAN) TABLET PO PRN ×3 (05:26→20:40)
[2023-01-24] MEDS: morphine ER 15 MG (MS CONTIN) TAB PO SCH ×3 (05:27→20:40)
[2023-01-24] MEDS: CATHETER FLUSH 10 ML SYR IVP SCH ×3 (05:27→20:40)
[2023-01-24] MEDS: predniSONE 20 MG TAB PO SCH (06:29)
[2023-01-24] MEDS: RT--FLUTICASONE/SALMETEROL 232-14 (AIRDUO RespiCLICK) IH SCH ×2 (06:44→22:10)
[2023-01-24] MEDS: UMECLIDINIUM BROMIDE (INCRUSE ELLIPTA) 7'S IH SCH (06:44)
[2023-01-24] MEDS: amLODIPine 5 MG (NORVASC) TAB PO SCH (08:18)
[2023-01-24] MEDS: lisINopril 20 MG (PRINIVIL) TABLET PO SCH (08:18)
[2023-01-24] MEDS: FOLIC ACID 1 MG TAB PO SCH (08:18)
[2023-01-24] MEDS: meTOprolol TARTRATE 50 MG (LOPRESSOR) TAB PO SCH ×2 (08:18→20:40)
[2023-01-24] MEDS: NICOTINE 7 MG (NICODERM) PATCH TD SCH (08:19)
[2023-01-24] MEDS: NICOTINE PATCH REMOVAL TP SCH (08:19)
[2023-01-24] MEDS ORDERED: methylPREDNISolone 40 MG/ML (Solu-MEDROL) VIAL IV NR (09:00)
[2023-01-24] MEDS ORDERED: FUROSEMIDE 40 MG/4 ML INJ (LASIX) IVP NR (09:00)
[2023-01-24 10:30] VITALS: BP 124/70
--- NOTE | 2023-01-24 10:50 | Progress Note - Hospitalist ---
Subjective HPI/CC On Admission Date Seen by Provider: Jan 24, 2023 Lyndsey Sosa is a 72 year old female with PMH metastatic lung cancer on chemotherapy, chemotherapy induced pancytopenia, COPD, HTN, HLD, GERD, cachexia, who presented with shortness of breath. She has been having fevers. She denies cough. She has been on outpatient antibiotics but was not improving. She denies chest pain. She denies abdominal pain. She denies nausea and vomiting. She last had chemotherapy about one week ago. Subjective/Events-last exam Pt reports doing about the same. Still on Vapotherm and they had to increase this morning with movement. I was able to wean down some while in the room though. Objective Exam Vital Signs Vital Signs Date Time Temp Pulse Resp B/P (MAP) Pulse Ox O2 Delivery O2 Flow Rate FiO2 01/24/23 11:00 79 13 117/86 (96) 100 Vapotherm 30.00 80.00 01/24/23 06:57 90 01/24/23 04:00 36.6 Capillary Refill : Less Than 3 Seconds General Appearance: No Apparent Distress, Chronically ill, Thin Respiratory: Decreased Breath Sounds Cardiovascular: Regular Rate, Rhythm, No Murmur Gastrointestinal: Normal Bowel Sounds, Soft Neurologic/Psychiatric: Alert, Oriented x3 Results/Procedures Lab Laboratory Tests 01/24/23 04:05 Patient resulted labs reviewed. Imaging: Reviewed Imaging Report Assessment/Plan Assessment and Plan Assess & Plan/Chief Complaint Sepsis due to pneumonia Acute on chronic respiratory failure with hypoxia Metastatic lung cancer Chemotherapy induced pancytopenia COPD Cachexia Pain of metastatic malignancy HTN HLD GERD Weaning Vapotherm done and at 30lpm at 80% I anticipate she will need a longer wean given her complex medical history and would likely benefit from an LTACH MAT protocol Continue Zosyn Continue home meds DNR/DNI- confirmed with her 01/20 Dr Marroquin consulted, appreciate recs Discussed with him, patient on Keytruda and had good response so far Continue steroids Negative 600mL yesterday, redosed lasix today by TeleICU DVT ppx: Lovenox Diet: regular Critical Care Critically Ill Patient RONEN PÉREZ MD Jan 24, 2023 10:50
[2023-01-24 11:57] VITALS: BP 117/86
[2023-01-24] MEDS: ENOXAPARIN INJECTION 30 MG/0.3 ML SYR SC SCH (12:01)
--- NOTE | 2023-01-24 12:13 | Tele-ICU Progress Note ---
Subjective Date Seen by a Provider: Jan 24, 2023 Time Seen by a Provider: 12:12 Subjective/Events-last exam (Tele-ICU Physician , Progress Note ) Service provided via interactive audio and video telecommunications E-CARE system to a patient admitted to ICU bed in [facility]. Patient is seen today due to persistent need of ICU care Available chart/ vitals / labs / Images reviewed Video assessment done using teleICU camera, rest of exam as per RN Discussed with RN Events overnight : Afebrile hemodynamically stable Respiratory - 5-8l I/O = pos Drips: LR 50 Pressors- no Hospital course: (01/17) 72yr old female admitted with pneumonia- transferrred to medical floow AM (01/20) transfered back for increased O2 demands. 6/ VT 20L 100& 01/23 - VT 25L 80 % 3/8 VT 30L 80% - desats with minimal movements , try BIPAP intermittent 10/5 , solumedrol 80 x1 and lasix 40 x1 A/P Acute resp failure- VT 25L 80 % - suspect VO - keepin neg fluid status - try BIPAP intermittent 10/5 , solumedrol 80 x1 and lasix 40 x1 PNA - Continue IV vancomycin and Zosyn ( given immunocompr state ) Metastatic Lung Cancer -Diagnosed on 08/03/22 >Mets to bone and L adrenal gland Severe underlying emphysema - cont br - dilators -cont steroids po Anxiety - ativan prn Chronic pain syndrome due to malignancy - cont po meds Lines : Right IJ tunneled port CVC , (Central Line Necessity Reviewed) Vo: OG: Nutrition: po Analgesia: Anxiety/ delirium VTE Prophylaxis: lovenox 30 Stress Ulcer Prophylaxis: na Plans in collaboration with bedside consultants and IM MDs. Discussed with RN to reach out if any questions or concerns A total of 31minutes of critical care time was devoted to this patient today, required to treat and/or prevent further deterioration of critical care condition ( as above ) . I am remotely monitoring this patient from another state. I am unable to do the bedside exam, and history/physical and pertinent information is taken from other notes in the computer and bedside staff. Sepsis Event Evaluation Height, Weight, BMI Height: '" Weight: lbs. oz. kg; 18.18 BMI Method: Exam Exam Patient acknowledged, consented, and participated in this virtual visit which was conducted using real time audio/video Vital Signs Date Time Temp Pulse Resp B/P (MAP) Pulse Ox O2 Delivery O2 Flow Rate FiO2 01/24/23 11:57 83 18 100 80.00 01/24/23 11:00 79 13 117/86 (96) 100 Vapotherm 30.00 80.00 01/24/23 10:30 79 17 98 100.00 01/24/23 10:00 81 17 124/70 (88) 96 Vapotherm 30.00 80.00 01/24/23 09:00 91 20 116/59 (78) 95 Vapotherm 30.00 80.00 01/24/23 08:22 20 Vapotherm 30.00 80.00 01/24/23 08:00 105 26 129/73 (91) 90 Vapotherm 30.00 90.00 01/24/23 07:56 Vapotherm 30.00 90.00 01/24/23 07:03 104 01/24/23 07:00 106 19 130/81 (97) 89 Vapotherm 25.00 90.00 01/24/23 06:57 Vapotherm 25.00 90 01/24/23 06:56 Vapotherm 25.00 90 01/24/23 06:44 91 Vapotherm 25.00 90 01/24/23 06:30 Vapotherm 25.00 90.00 01/24/23 06:00 93 22 139/83 (98) 90 Vapotherm 25.00 70.00 01/24/23 05:37 Vapotherm 25.00 70.00 01/24/23 05:00 90 19 140/90 (106) 86 Vapotherm 25.00 60.00 01/24/23 04:18 91 Vapotherm 25.00 70 01/24/23 04:00 36.6 01/24/23 04:00 92 18 155/84 (109) 89 Vapotherm 25.00 60.00 01/24/23 03:00 95 17 142/77 (101) 91 Vapotherm 25.00 60.00 01/24/23 02:00 96 18 132/82 (98) 89 Vapotherm 25.00 60.00 01/24/23 01:00 97 20 135/81 (93) 95 Vapotherm 25.00 60.00 01/24/23 01:00 100 01/24/23 00:19 25.00 60.00 01/24/23 00:00 36.7 01/24/23 00:00 104 21 139/77 (97) 93 Vapotherm 25.00 70.00 01/23/23 23:59 93 Vapotherm 25.00 70 01/23/23 23:00 105 20 131/75 (93) 90 Vapotherm 25.00 70.00 01/23/23 22:25 116 22 92 Vapotherm 25.00 70.00 01/23/23 22:00 116 130/79 (92) 90 Vapotherm 25.00 60.00 01/23/23 21:47 92 Vapotherm 25.00 80 01/23/23 21:00 113 17 147/93 (111) 90 Vapotherm 25.00 60.00 01/23/23 20:35 90 Vapotherm 25.00 60 01/23/23 20:00 112 148/96 (119) 93 Vapotherm 25.00 60.00 01/23/23 20:00 36.8 01/23/23 19:00 107 17 130/72 (88) 89 Vapotherm 25.00 60.00 01/23/23 19:00 107 01/23/23 18:46 89 Vapotherm 25.00 70 01/23/23 18:00 103 26 152/90 (110) 94 Vapotherm 25.00 80.00 01/23/23 17:00 97 20 134/81 (98) 94 Vapotherm 25.00 80.00 01/23/23 16:00 36.1 01/23/23 16:00 101 20 128/71 (90) 96 Vapotherm 25.00 80.00 01/23/23 16:00 94 Vapotherm 25.00 80 01/23/23 15:00 107 15 115/76 (89) 90 Vapotherm 25.00 80.00 01/23/23 14:31 91 Vapotherm 25.00 80 01/23/23 14:00 101 13 121/80 (94) 85 Vapotherm 25.00 80.00 01/23/23 13:23 98 01/23/23 13:00 101 20 108/73 (85) 91 Vapotherm 25.00 80.00 01/23/23 12:17 36.7 I & O 01/24/23 07:00 Intake Total 1760 ml Output Total 2600 ml Balance -840 ml Height & Weight Height: '" Weight: lbs. oz. kg; 18.18 BMI Method: General Appearance: No Apparent Distress, Chronically ill, Thin HEENT: PERRL/EOMI, Pharynx Normal Neck: Normal Inspection, Supple Respiratory: Decreased Breath Sounds Cardiovascular: Regular Rate, Rhythm, No Murmur Capillary Refill: Less Than 3 Seconds Gastrointestinal: normal bowel sounds, non tender, soft Extremity: No Pedal Edema Neurologic/Psychiatric: Alert, Oriented x3 Skin: Normal Color, Warm/Dry Results Lab Laboratory Tests 01/23/23 04:15 01/24/23 04:05 Assessment/Plan Assessment/Plan 1 ARELI OROPEZA MD Jan 24, 2023 12:13
[2023-01-24] MEDS: PANTOPRAZOLE 40 MG (PROTONIX) TAB PO SCH (12:49)
--- NOTE | 2023-01-24 14:43 | Diagnostic Imaging Report ---
INDICATION: Hypoxia. COMPARISON: 01/22/2023. TECHNIQUE: Single radiograph of the chest dated 01/24/2023. FINDINGS: Right-sided Port-A-Cath is again identified. The cardiac silhouette is within normal limits in size. Pulmonary vasculature is predominantly obscured. Extensive bilateral pulmonary opacities, including interstitial opacities are again noted bilaterally. These opacities appear stable from the prior examination. Tiny right basilar pleural effusion, slightly improved since the prior examination. No large-volume pleural effusion. No pneumothorax. No acute osseous abnormality. IMPRESSION: Stable bilateral pulmonary opacities with minimally improved tiny right basilar pleural effusion. Stable right-sided Port-A-Cath. No adverse change when compared to the prior exam. Dictated by: Dictated on workstation # [id number]
[2023-01-24] MEDS: MELATONIN 3 MG TABLET PO SCH (20:40)
[2023-01-24] MEDS: ROSUVASTATIN 20 MG (CRESTOR) TABLET PO SCH (20:40)
[2023-01-24 22:11] VITALS: BP 120/85
[2023-01-25] MEDS: RT-ALBUTEROL HFA 8.5 GM INHALER IH SCH ×6 (02:12→22:04)
[2023-01-25 02:13] VITALS: BP 126/82
[2023-01-25] MEDS: PIPERACILLIN SODIUM/TAZOBACTAM 4.5 GM in NS (IVPB) 100 ML IV SCH ×2 (03:35→11:15)
[2023-01-25 03:44] LABS: BASOPHILS % (AUTO) 0 % (0-10); EOSINOPHILS % (AUTO) 0 % (0-10); HEMATOCRIT 27 % (35-52); HEMOGLOBIN 8.7 g/dL (11.5-16.0); LYMPHOCYTES # (AUTO) 0.6 10^3/uL (1.0-4.0); LYMPHOCYTES % (AUTO) 8 % (12-44); MEAN CORPUSCULAR HEMOGLOBIN 29 pg (25-34); MEAN CORPUSCULAR HGB CONC 32 g/dL (32-36); MEAN CORPUSCULAR VOLUME 90 fL (80-99); MEAN PLATELET VOLUME 9.3 fL (9.0-12.2); MONOCYTES # (AUTO) 0.5 10^3/uL (0.0-1.0); MONOCYTES % (AUTO) 6 % (0-12); NEUTROPHILS # (AUTO) 6.2 10^3/uL (1.8-7.8); NEUTROPHILS % (AUTO) 84 % (42-75); PLATELET COUNT 156 10^3/uL (130-400); WHITE BLOOD COUNT 7.4 10^3/uL (4.3-11.0)
[2023-01-25 04:02] LABS: ALBUMIN 2.6 GM/DL (3.2-4.5)
[2023-01-25 04:03] LABS: POTASSIUM 3.7 MMOL/L (3.6-5.0)
[2023-01-25 04:04] LABS: CALCIUM 8.6 MG/DL (8.5-10.1)
[2023-01-25 04:07] LABS: BILIRUBIN,TOTAL 0.2 MG/DL (0.1-1.0)
[2023-01-25 04:08] LABS: PHOSPHORUS 3.6 MG/DL (2.3-4.7)
[2023-01-25 04:09] LABS: CREATININE SERUM 0.84 MG/DL (0.60-1.30)
[2023-01-25 04:12] LABS: MAGNESIUM 1.9 MG/DL (1.6-2.4)
[2023-01-25 04:14] LABS: ANISOCYTOSIS SLIGHT; BAND NEUTROPHILS 0 %; BASOPHILS % (MANUAL) 0 %; ELLIPT/OVALOCYTES SLIGHT; EOSINOPHILS % (MANUAL) 0 %; HYPOCHROMASIA SLIGHT; LYMPHOCYTES % (MANUAL) 2 %; MONOCYTES % (MANUAL) 8 %; NEUTROPHILS % (MANUAL) 90 %; POLYCHROMASIA SLIGHT
[2023-01-25] MEDS: POTASSIUM CL 10MEQ/50ML IVPB 50 ML IV SCH (05:12)
[2023-01-25] MEDS: KCL 20 MEQ TAB (K-DUR) PO SCH (05:12)
[2023-01-25] MEDS: MAGNESIUM 1 GM/100 ML IVPB 100 ML IV SCH ×2 (05:12→08:00)
[2023-01-25] MEDS: CATHETER FLUSH 10 ML SYR IVP SCH ×3 (05:31→20:29)
[2023-01-25] MEDS: predniSONE 20 MG TAB PO SCH (05:31)
[2023-01-25] MEDS: morphine ER 15 MG (MS CONTIN) TAB PO SCH ×3 (05:31→20:28)
[2023-01-25] MEDS: ONDANSETRON 4 MG/2 ML (SDV) Z0FRAN IV PRN (05:59)
[2023-01-25] MEDS: UMECLIDINIUM BROMIDE (INCRUSE ELLIPTA) 7'S IH SCH (07:27)
[2023-01-25] MEDS: RT--FLUTICASONE/SALMETEROL 232-14 (AIRDUO RespiCLICK) IH SCH ×2 (07:27→21:56)
[2023-01-25] MEDS: lisINopril 20 MG (PRINIVIL) TABLET PO SCH (07:45)
[2023-01-25] MEDS: meTOprolol TARTRATE 50 MG (LOPRESSOR) TAB PO SCH ×2 (07:45→20:28)
[2023-01-25] MEDS: NICOTINE 7 MG (NICODERM) PATCH TD SCH (07:46)
[2023-01-25] MEDS: amLODIPine 5 MG (NORVASC) TAB PO SCH (07:46)
[2023-01-25] MEDS: FOLIC ACID 1 MG TAB PO SCH (07:46)
[2023-01-25] MEDS: NICOTINE PATCH REMOVAL TP SCH (07:48)
[2023-01-25] MEDS: LORazepam 0.5 MG (ATIVAN) TABLET PO PRN ×2 (07:52→12:18)
[2023-01-25] MEDS ORDERED: KCL 20 MEQ TAB (K-DUR) PO ONE (08:00)
--- NOTE | 2023-01-25 08:46 | Tele-ICU Progress Note ---
Subjective Date Seen by a Provider: Jan 25, 2023 Time Seen by a Provider: 12:26 Subjective/Events-last exam (Tele-ICU Physician , progress note) Available chart/ vitals / labs / Images reviewed H&P is from ER notes Patient's information available about PMH, allergy reviewed in EMR. ROS as per chart and RN report Video assessment done using teleICU camera, rest of exam as per RN Discussed with RN. She is a 72-year-old female with past medical history of metastatic lung cancer, severe emphysema status postchemotherapy admitted with pneumonia and acute respiratory failure. Currently she is on Vapotherm 40l over 100% fio2 . Hemodynamically stable 01/25/23 today she is tachypenic and very frail. on very high fio2. her insurance wants her fio2 to be 65 or low before she can be transfered to [facility]. Impression 1. Community-acquired pneumonia about the same 2. Acute hypoxic respiratory failure secondary to pneumonia and emphysema worsening 3. COPD exacerbation slowly improving 4. Chronic pain syndrome due to malignancy 5. Tobacco abuse disorder. Recommendations 1. Continue Vapotherm now at 40l/100% fio2 2. Continue IV Zosyn per primary care and ad doxycycline 3. Bronchodilator therapy 4. Continue prednisone and wean as tolerated 5. Pain management. 6. Palliative care suggested apparently to family but they want to continue current treatment. [facility]io2 is very high. Discussed in mdr rounds She is a DNR and DNI status and her prognosis is poor Coordination of care with the primary care physician at the bedside consultants Sepsis Event Evaluation Height, Weight, BMI Height: '" Weight: lbs. oz. kg; 18.55 BMI Method: Exam Exam Patient acknowledged, consented, and participated in this virtual visit which was conducted using real time audio/video Vital Signs Date Time Temp Pulse Resp B/P (MAP) Pulse Ox O2 Delivery O2 Flow Rate FiO2 01/25/23 08:00 91 20 149/84 (105) 93 Vapotherm 40.00 100.00 01/25/23 07:34 Vapotherm 40.00 100.00 01/25/23 07:27 Vapotherm 01/25/23 07:27 94 Vapotherm 40.00 100 01/25/23 07:27 Vapotherm 01/25/23 07:00 80 20 167/100 (122) 96 Vapotherm 40.00 80.00 3/9/23 07:00 75 01/25/23 06:00 81 20 151/82 (105) 94 Vapotherm 40.00 80.00 01/25/23 05:35 Vapotherm 40.00 80.00 01/25/23 05:00 82 27 142/86 (104) 92 Vapotherm 40.00 90.00 01/25/23 04:00 81 15 154/100 (118) 99 Vapotherm 40.00 90.00 01/25/23 03:56 94 Vapotherm 40.00 90 01/25/23 03:29 Vapotherm 40.00 90.00 01/25/23 03:00 79 18 143/84 (103) 98 NIV Bilevel 60.00 01/25/23 02:13 79 17 98 60.00 01/25/23 02:00 77 20 126/82 (97) 98 NIV Bilevel 60.00 01/25/23 01:15 36.4 NIV Bilevel 60.00 01/25/23 01:00 80 01/25/23 01:00 74 27 128/74 (92) 100 NIV Bilevel 70.00 01/25/23 00:03 36.7 NIV Bilevel 70.00 01/25/23 00:00 97 NIV Bilevel 80 01/25/23 00:00 74 16 114/85 (95) 100 NIV Bilevel 80.00 01/24/23 23:00 78 17 95/64 (74) 100 NIV Bilevel 80.00 01/24/23 22:11 88 17 100 80.00 01/24/23 22:00 86 18 120/85 (97) 100 NIV Bilevel 80.00 01/24/23 21:39 NIV Bilevel 80.00 01/24/23 21:00 106 15 133/87 (102) 93 Vapotherm 40.00 90.00 01/24/23 20:00 111 20 143/83 (103) 96 Vapotherm 40.00 90.00 01/24/23 20:00 92 Vapotherm 40.00 90 01/24/23 19:30 Vapotherm 40.00 90.00 01/24/23 19:00 106 01/24/23 19:00 103 22 98 Vapotherm 40.00 100.00 01/24/23 18:46 93 Vapotherm 40.00 90 01/24/23 18:00 91 143/85 (104) 100 Vapotherm 40.00 100.00 01/24/23 17:00 85 112/84 (93) 97 Vapotherm 40.00 100.00 01/24/23 16:15 92 Vapotherm 40.00 100 01/24/23 16:00 89 147/80 (102) 94 Vapotherm 40.00 100.00 01/24/23 15:00 84 110/75 (87) 99 Vapotherm 40.00 100.00 01/24/23 14:53 Vapotherm 40.00 90 01/24/23 14:51 100 Vapotherm 40.00 100 01/24/23 14:00 89 101/69 (80) 100 Vapotherm 40.00 100.00 01/24/23 13:00 86 124/77 (93) 93 Vapotherm 40.00 100.00 01/24/23 12:50 95 Vapotherm 40.00 100.00 01/24/23 12:49 87 01/24/23 12:35 92 Vapotherm 40.00 100 01/24/23 12:25 82 01/24/23 12:00 36.4 01/24/23 11:57 83 18 100 80.00 01/24/23 11:00 79 13 117/86 (96) 100 Vapotherm 30.00 80.00 01/24/23 10:30 79 17 98 100.00 01/24/23 10:00 81 17 124/70 (88) 96 Vapotherm 30.00 80.00 01/24/23 09:00 91 20 116/59 (78) 95 Vapotherm 30.00 80.00 I & O 01/25/23 07:00 Intake Total 1700 ml Output Total 3050 ml Balance -1350 ml Height & Weight Height: '" Weight: lbs. oz. kg; 18.55 BMI Method: General Appearance: No Apparent Distress, Chronically ill, Thin HEENT: PERRL/EOMI, Pharynx Normal Neck: Normal Inspection, Supple Respiratory: Decreased Breath Sounds Cardiovascular: Regular Rate, Rhythm, No Murmur Capillary Refill: Less Than 3 Seconds Gastrointestinal: normal bowel sounds, non tender, soft Extremity: No Pedal Edema Neurologic/Psychiatric: Alert, Oriented x3 Skin: Normal Color, Warm/Dry Other comments PE PER RN Results Lab Laboratory Tests 01/24/23 04:05 01/25/23 03:30 Assessment/Plan Assessment/Plan as above Critical Care: Critically Ill Patient Time spent with patient (mins): 20 JEREMY JOHNSON MD Jan 25, 2023 08:46
[2023-01-25] MEDS: PANTOPRAZOLE 40 MG (PROTONIX) TAB PO SCH (11:14)
[2023-01-25] MEDS: ENOXAPARIN INJECTION 30 MG/0.3 ML SYR SC SCH (11:15)
--- NOTE | 2023-01-25 13:18 | Progress Note - Hospitalist ---
Subjective HPI/CC On Admission Date Seen by Provider: Jan 25, 2023 Lyndsey Sosa is a 72 year old female with PMH metastatic lung cancer on chemotherapy, chemotherapy induced pancytopenia, COPD, HTN, HLD, GERD, cachexia, who presented with shortness of breath. She has been having fevers. She denies cough. She has been on outpatient antibiotics but was not improving. She denies chest pain. She denies abdominal pain. She denies nausea and vomiting. She last had chemotherapy about one week ago. Subjective/Events-last exam Pt reports feeling ok. No specifics complaints. Discussed that she is now maxed out on Vapotherm and if she requires more oxygen we will need to stay on BiPAP. She states she tolerated it alright overnight. Objective Exam Vital Signs Vital Signs Date Time Temp Pulse Resp B/P (MAP) Pulse Ox O2 Delivery O2 Flow Rate FiO2 01/25/23 12:51 79 01/25/23 12:00 98 Vapotherm 40.00 100 01/25/23 12:00 19 118/84 (95) 01/25/23 11:21 36.3 Capillary Refill : Less Than 3 Seconds General Appearance: No Apparent Distress, Chronically ill, Cachetic Respiratory: Decreased Breath Sounds; No Wheezing Cardiovascular: Regular Rate, Rhythm, No Murmur Gastrointestinal: Soft Neurologic/Psychiatric: Alert, Oriented x3 Results/Procedures Lab Laboratory Tests 01/25/23 03:30 Patient resulted labs reviewed. Imaging: Reviewed Imaging Report Assessment/Plan Assessment and Plan Assess & Plan/Chief Complaint Sepsis due to pneumonia Acute on chronic respiratory failure with hypoxia Metastatic lung cancer Chemotherapy induced pancytopenia COPD Cachexia Pain of metastatic malignancy HTN HLD GERD Maxed on Vapotherm currently May need to try longer term with BiPAP as she was done to 60% FiO2 with that MAT protocol Completed 7 day course of Zosyn today, monitor off abx today Continue home meds DNR/DNI- confirmed with her 01/20 Dr Marroquin consulted, appreciate recs Discussed with him, patient on Keytruda and had good response so far Continue steroids Negative 2400mL yesterday Will likely need LTACH referral DVT ppx: Lovenox Diet: regular Critical Care Critically Ill Patient RONEN PÉREZ MD Jan 25, 2023 1:18 pm
[2023-01-25] MEDS: ROSUVASTATIN 20 MG (CRESTOR) TABLET PO SCH (20:28)
[2023-01-25] MEDS: MELATONIN 3 MG TABLET PO SCH (20:28)
[2023-01-25] MEDS: DOXYCYCLINE INJECTION 100 MG in NS (IVPB) 100 ML IV SCH (20:29)
[2023-01-25 22:04] VITALS: BP 122/78
[2023-01-26 02:25] VITALS: BP 130/85
[2023-01-26] MEDS: RT-ALBUTEROL HFA 8.5 GM INHALER IH SCH ×6 (02:25→22:38)
[2023-01-26 02:56] VITALS: BP 128/89
[2023-01-26] MEDS: ACETAMINOPHEN 500 MG TAB (TYLENOL) PO PRN (04:00)
[2023-01-26 04:19] LABS: BASOPHILS % (AUTO) 0 % (0-10); EOSINOPHILS # (AUTO) 0.1 10^3/uL (0.0-0.3); EOSINOPHILS % (AUTO) 1 % (0-10); HEMATOCRIT 28 % (35-52); HEMOGLOBIN 8.7 g/dL (11.5-16.0); LYMPHOCYTES # (AUTO) 0.5 10^3/uL (1.0-4.0); LYMPHOCYTES % (AUTO) 6 % (12-44); MEAN CORPUSCULAR HEMOGLOBIN 29 pg (25-34); MEAN CORPUSCULAR HGB CONC 31 g/dL (32-36); MEAN CORPUSCULAR VOLUME 92 fL (80-99); MEAN PLATELET VOLUME 9.7 fL (9.0-12.2); MONOCYTES # (AUTO) 0.5 10^3/uL (0.0-1.0); MONOCYTES % (AUTO) 6 % (0-12); NEUTROPHILS # (AUTO) 7.1 10^3/uL (1.8-7.8); NEUTROPHILS % (AUTO) 85 % (42-75); PLATELET COUNT 172 10^3/uL (130-400); WHITE BLOOD COUNT 8.4 10^3/uL (4.3-11.0)
[2023-01-26 04:26] LABS: ALBUMIN 2.4 GM/DL (3.2-4.5); POTASSIUM 3.4 MMOL/L (3.6-5.0)
[2023-01-26 04:27] LABS: CALCIUM 8.4 MG/DL (8.5-10.1)
[2023-01-26 04:29] LABS: TOTAL PROTEIN 4.6 GM/DL (6.4-8.2)
[2023-01-26 04:30] LABS: BILIRUBIN,TOTAL 0.1 MG/DL (0.1-1.0)
[2023-01-26 04:32] LABS: CREATININE SERUM 0.76 MG/DL (0.60-1.30); PHOSPHORUS 2.9 MG/DL (2.3-4.7)
[2023-01-26 04:35] LABS: MAGNESIUM 1.8 MG/DL (1.6-2.4)
[2023-01-26] MEDS: POTASSIUM CL 10MEQ/50ML IVPB 50 ML IV SCH (04:35)
[2023-01-26] MEDS: MAGNESIUM 1 GM/100 ML IVPB 100 ML IV SCH ×3 (04:44→06:03)
[2023-01-26] MEDS: KCL 20 MEQ TAB (K-DUR) PO SCH (04:44)
[2023-01-26] MEDS ORDERED: KCL 20 MEQ TAB (K-DUR) PO ONE ×2 (04:45)
[2023-01-26] MEDS: CATHETER FLUSH 10 ML SYR IVP SCH ×3 (05:04→21:24)
[2023-01-26] MEDS: morphine ER 15 MG (MS CONTIN) TAB PO SCH ×3 (06:03→21:23)
[2023-01-26] MEDS: predniSONE 20 MG TAB PO SCH (06:03)
[2023-01-26] MEDS: RT--FLUTICASONE/SALMETEROL 232-14 (AIRDUO RespiCLICK) IH SCH ×3 (07:14→22:43)
[2023-01-26] MEDS: UMECLIDINIUM BROMIDE (INCRUSE ELLIPTA) 7'S IH SCH ×2 (07:14→11:00)
[2023-01-26] MEDS: lisINopril 20 MG (PRINIVIL) TABLET PO SCH (07:34)
[2023-01-26] MEDS: meTOprolol TARTRATE 50 MG (LOPRESSOR) TAB PO SCH ×2 (07:34→21:23)
[2023-01-26] MEDS: LORazepam 0.5 MG (ATIVAN) TABLET PO PRN ×3 (07:34→21:23)
[2023-01-26] MEDS: NICOTINE PATCH REMOVAL TP SCH (07:35)
[2023-01-26] MEDS: FOLIC ACID 1 MG TAB PO SCH (07:35)
[2023-01-26] MEDS: NICOTINE 7 MG (NICODERM) PATCH TD SCH (07:35)
[2023-01-26] MEDS: amLODIPine 5 MG (NORVASC) TAB PO SCH (07:35)
[2023-01-26] MEDS: DOXYCYCLINE INJECTION 100 MG in NS (IVPB) 100 ML IV SCH ×2 (08:12→21:23)
--- NOTE | 2023-01-26 08:17 | Tele-ICU Progress Note ---
Subjective Date Seen by a Provider: Jan 26, 2023 Subjective/Events-last exam (Tele-ICU Physician , progress note) Available chart/ vitals / labs / Images reviewed H&P is from ER notes Patient's information available about PMH, allergy reviewed in EMR. ROS as per chart and RN report Video assessment done using teleICU camera, rest of exam as per RN Discussed with RN. She is a 72-year-old female with past medical history of metastatic lung cancer, severe emphysema status postchemotherapy admitted with pneumonia and acute respiratory failure. Currently she is on Vapotherm 40l over 100% fio2 . Hemodynamically stable 01/25/23 today she is tachypenic and very frail. on very high fio2. her insurance wants her fio2 to be 65 or low before she can be transferred to LTACH. 01/26/23 Today she is in lot of pain. additional meds given. she calmed down. On VT 30/95%. minimal improvement. she is advised to go back on bipap which may facilitate accepting in LTACH. Impression 1. Community-acquired pneumonia about the same 2. Acute hypoxic respiratory failure secondary to pneumonia and emphysema worsening 3. COPD exacerbation slowly improving 4. Chronic pain syndrome due to malignancy 5. Tobacco abuse disorder. Recommendations 1. Continue Vapotherm now at 40l/100% fio2 2. Continue IV Zosyn per primary care and ad doxycycline 3. Bronchodilator therapy 4. Continue prednisone and wean as tolerated 5. Pain management. 6. Palliative care suggested apparently to family but they want to continue current treatment.Try on Bipap again and try to transfer to LTACH She is a DNR and DNI status and her prognosis is poor Coordination of care with the primary care physician at the bedside consultants critical care time approximately 15 minutes. Sepsis Event Evaluation Height, Weight, BMI Height: '" Weight: lbs. oz. kg; 18.55 BMI Method: Exam Exam Patient acknowledged, consented, and participated in this virtual visit which was conducted using real time audio/video Vital Signs Date Time Temp Pulse Resp B/P (MAP) Pulse Ox O2 Delivery O2 Flow Rate FiO2 01/26/23 08:00 82 17 105/74 (84) 95 Vapotherm 30.00 95.00 01/26/23 07:40 90 Vapotherm 30.00 95 01/26/23 07:37 36.5 Vapotherm 30.00 95.00 01/26/23 07:18 88 Vapotherm 30.00 95 01/26/23 07:00 80 17 101/68 (79) 92 Vapotherm 30.00 85.00 01/26/23 07:00 103 01/26/23 06:00 76 16 115/72 (86) 94 Vapotherm 30.00 85.00 01/26/23 05:00 81 24 127/78 (94) 94 Vapotherm 30.00 85.00 01/26/23 04:00 75 23 146/99 (115) 95 Vapotherm 30.00 85.00 01/26/23 04:00 98 Vapotherm 30.00 85 01/26/23 04:00 36.2 01/26/23 03:00 73 15 137/92 (107) 93 Vapotherm 30.00 85.00 01/26/23 02:56 36.1 73 96 60 01/26/23 02:30 NIV Bilevel 55.00 01/26/23 02:25 73 19 96 60.00 01/26/23 02:00 71 14 130/85 (100) 96 NIV Bilevel 60.00 01/26/23 01:00 80 01/26/23 01:00 74 17 130/92 (105) 96 NIV Bilevel 60.00 01/26/23 00:00 95 NIV Bilevel 60 01/26/23 00:00 36.1 01/26/23 00:00 76 15 128/89 (102) 97 NIV Bilevel 60.00 01/25/23 23:00 77 16 136/79 (98) 97 NIV Bilevel 60.00 01/25/23 22:04 82 21 93 60.00 01/25/23 22:00 85 26 122/78 (93) 96 NIV Bilevel 60.00 01/25/23 21:56 Vapotherm 40.00 95 01/25/23 21:00 92 16 100/68 (79) 99 Vapotherm 40.00 100.00 01/25/23 20:01 36.8 01/25/23 20:00 98 28 123/77 (92) 97 Vapotherm 40.00 100.00 01/25/23 20:00 93 Vapotherm 40.00 95 01/25/23 19:00 100 01/25/23 19:00 100 Vapotherm 40.00 100 01/25/23 19:00 98 24 149/91 (110) 100 Vapotherm 40.00 100.00 01/25/23 18:00 78 27 128/86 (100) 100 Vapotherm 40.00 100.00 01/25/23 17:00 79 30 115/79 (91) 98 Vapotherm 40.00 100.00 01/25/23 16:00 81 16 112/76 (88) 100 Vapotherm 40.00 100.00 01/25/23 15:36 97 Vapotherm 40.00 100 01/25/23 15:18 36.1 01/25/23 15:00 81 16 112/76 (88) 100 Vapotherm 40.00 100.00 01/25/23 14:39 99 Vapotherm 40.00 100 01/25/23 14:00 84 45 104/72 (83) 100 Vapotherm 40.00 100.00 01/25/23 13:00 85 27 110/68 (82) 100 Vapotherm 40.00 100.00 01/25/23 12:51 79 01/25/23 12:00 98 Vapotherm 40.00 100 01/25/23 12:00 85 19 118/84 (95) 100 Vapotherm 40.00 100.00 01/25/23 11:21 36.3 01/25/23 11:00 80 28 100/65 (77) 97 Vapotherm 40.00 100.00 01/25/23 10:30 95 Vapotherm 40.00 100 01/25/23 10:00 77 14 104/66 (79) 98 Vapotherm 40.00 100.00 01/25/23 09:00 78 14 127/119 (122) 98 Vapotherm 40.00 100.00 01/25/23 08:45 36.1 I & O 01/26/23 07:00 Intake Total 2460 ml Output Total 985 ml Balance 1475 ml Height & Weight Height: '" Weight: lbs. oz. kg; 18.55 BMI Method: General Appearance: No Apparent Distress, Chronically ill, Cachetic HEENT: PERRL/EOMI, Pharynx Normal Neck: Normal Inspection, Supple Respiratory: Decreased Breath Sounds; No Wheezing Cardiovascular: Regular Rate, Rhythm, No Murmur Capillary Refill: Less Than 3 Seconds Gastrointestinal: normal bowel sounds, non tender, soft Extremity: No Pedal Edema Neurologic/Psychiatric: Alert, Oriented x3 Skin: Normal Color, Warm/Dry Other comments PE PER RN Results Lab Laboratory Tests 01/25/23 03:30 01/26/23 04:11 Assessment/Plan Assessment/Plan ABOVE Critical Care: Critically Ill Patient Time spent with patient (mins): 15 JEREMY JOHNSON MD Jan 26, 2023 08:17
--- NOTE | 2023-01-26 08:37 | Progress Note - Hospitalist ---
Subjective HPI/CC On Admission Date Seen by Provider: Jan 26, 2023 Lyndsey Sosa is a 72 year old female with PMH metastatic lung cancer on chemotherapy, chemotherapy induced pancytopenia, COPD, HTN, HLD, GERD, cachexia, who presented with shortness of breath. She has been having fevers. She denies cough. She has been on outpatient antibiotics but was not improving. She denies chest pain. She denies abdominal pain. She denies nausea and vomiting. She last had chemotherapy about one week ago. Subjective/Events-last exam Pt repors doing better today. Feeling better. Discussed plan for transfer to [place] and she is going to talk to her sister but seems agreeable. Objective Exam Vital Signs Vital Signs Date Time Temp Pulse Resp B/P (MAP) Pulse Ox O2 Delivery O2 Flow Rate FiO2 01/26/23 08:00 82 17 105/74 (84) 95 Vapotherm 30.00 95.00 01/26/23 07:40 95 01/26/23 07:37 36.5 Capillary Refill : Less Than 3 Seconds General Appearance: No Apparent Distress, Chronically ill Respiratory: No Accessory Muscle Use, No Respiratory Distress, Decreased Breath Sounds Cardiovascular: Regular Rate, Rhythm, No Murmur Neurologic/Psychiatric: Alert, Oriented x3 Results/Procedures Lab Laboratory Tests 01/26/23 04:11 Patient resulted labs reviewed. Imaging: Reviewed Imaging Report Assessment/Plan Assessment and Plan Assess & Plan/Chief Complaint Sepsis due to pneumonia Acute on chronic respiratory failure with hypoxia Metastatic lung cancer Chemotherapy induced pancytopenia COPD Cachexia Pain of metastatic malignancy HTN HLD GERD Still on Vapotherm () May need to try longer term with BiPAP as she was done to 55% FiO2 with that overnight MAT protocol Completed 7 day course of Zosyn, doing well continue to monitor off abx Continue home meds DNR/DNI- confirmed with her 01/20 Dr Marroquin consulted, appreciate recs Discussed with him, patient on Keytruda and had good response so far Continue steroids Would benefit from LTACH admission for long wean given her complex medical issues and lung disease DVT ppx: Lovenox Diet: regular Critical Care Critically Ill Patient RONEN PÉREZ MD Jan 26, 2023 08:37
[2023-01-26] MEDS: PANTOPRAZOLE 40 MG (PROTONIX) TAB PO SCH (11:24)
[2023-01-26] MEDS: ENOXAPARIN INJECTION 30 MG/0.3 ML SYR SC SCH (11:25)
[2023-01-26] MEDS: MELATONIN 3 MG TABLET PO SCH (21:23)
[2023-01-26] MEDS: ROSUVASTATIN 20 MG (CRESTOR) TABLET PO SCH (21:23)
[2023-01-26 22:38] VITALS: BP 137/90
[2023-01-27 02:15] VITALS: BP 142/87
[2023-01-27] MEDS: RT-ALBUTEROL HFA 8.5 GM INHALER IH SCH ×6 (02:15→21:36)
[2023-01-27] MEDS: LORazepam 0.5 MG (ATIVAN) TABLET PO PRN ×4 (02:37→20:02)
[2023-01-27 04:15] LABS: BASOPHILS % (AUTO) 0 % (0-10); EOSINOPHILS # (AUTO) 0.1 10^3/uL (0.0-0.3); EOSINOPHILS % (AUTO) 2 % (0-10); HEMATOCRIT 27 % (35-52); HEMOGLOBIN 8.4 g/dL (11.5-16.0); LYMPHOCYTES # (AUTO) 0.4 10^3/uL (1.0-4.0); LYMPHOCYTES % (AUTO) 5 % (12-44); MEAN CORPUSCULAR HEMOGLOBIN 29 pg (25-34); MEAN CORPUSCULAR HGB CONC 32 g/dL (32-36); MEAN CORPUSCULAR VOLUME 92 fL (80-99); MEAN PLATELET VOLUME 9.6 fL (9.0-12.2); MONOCYTES # (AUTO) 0.6 10^3/uL (0.0-1.0); MONOCYTES % (AUTO) 7 % (0-12); NEUTROPHILS # (AUTO) 6.6 10^3/uL (1.8-7.8); NEUTROPHILS % (AUTO) 82 % (42-75); PLATELET COUNT 168 10^3/uL (130-400)
[2023-01-27 04:25] LABS: ALBUMIN 2.4 GM/DL (3.2-4.5); POTASSIUM 4.1 MMOL/L (3.6-5.0)
[2023-01-27 04:26] LABS: CALCIUM 8.3 MG/DL (8.5-10.1)
[2023-01-27 04:27] LABS: TOTAL PROTEIN 4.4 GM/DL (6.4-8.2)
[2023-01-27 04:29] LABS: BILIRUBIN,TOTAL 0.1 MG/DL (0.1-1.0)
[2023-01-27 04:31] LABS: CREATININE SERUM 0.68 MG/DL (0.60-1.30); PHOSPHORUS 2.8 MG/DL (2.3-4.7)
[2023-01-27 04:34] LABS: MAGNESIUM 1.8 MG/DL (1.6-2.4)
[2023-01-27] MEDS: KCL 20 MEQ TAB (K-DUR) PO SCH (04:41)
[2023-01-27] MEDS: POTASSIUM CL 10MEQ/50ML IVPB 50 ML IV SCH (04:41)
[2023-01-27] MEDS: MAGNESIUM 1 GM/100 ML IVPB 100 ML IV SCH ×2 (04:41→06:15)
[2023-01-27] MEDS: morphine ER 15 MG (MS CONTIN) TAB PO SCH ×3 (06:15→21:20)
[2023-01-27] MEDS: predniSONE 20 MG TAB PO SCH (06:15)
[2023-01-27] MEDS: CATHETER FLUSH 10 ML SYR IVP SCH ×3 (06:16→22:18)
--- NOTE | 2023-01-27 08:47 | Tele-ICU Progress Note ---
Subjective Date Seen by a Provider: Jan 27, 2023 Subjective/Events-last exam his virtual visit was conducted using real time audio/video. 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 On home O2 at 2LPM. DNR/DNI Recent events: Admitted 01/17. PMH: as above plus HTN. PE: VSS. Tachpnea. Cachectic. O2 sat 94% on VT 30 L/95% HEENT: No obvious masses, adenopathy or JVD. Chest: Diminished on auscultation. CV: RRR S1 S2 No murmur or added sounds. Abd: Non-tender. Bowel sounds Y. : Unremarkable. Vo Y. COUNSELOR SUPERVISOR/psychiatric: Grossly intact. No obvious focal findings. Extremities: No edema. Capillary refill < 3 seconds. Skin: unremarkable. Results: Decreased Hb 8.4, Alb 2.4. CXR: Very hyperinflated with B infilts.. Available chart/ vitals / labs / images reviewed. Video assessment done using teleICU camera, rest of exam as per RN. A/P: Respiratory insufficiency: Continue present management with VT, airduo, PRN Duonebs, albut., pred. Nicoderm. Monitor for increasing oxygenation needs. DNR/DNI. Critical Care: critically ill patient. Cont. abx, norv., lisin., PPI, metop., Judy, statin. Discussed with RN KT Encouraged call back. Time spent incl coordination of care with other health professionals (mins): 22 Sepsis Event Evaluation Height, Weight, BMI Height: '" Weight: lbs. oz. kg; 18.41 BMI Method: Exam Exam Patient acknowledged, consented, and participated in this virtual visit which was conducted using real time audio/video Vital Signs Date Time Temp Pulse Resp B/P (MAP) Pulse Ox O2 Delivery O2 Flow Rate FiO2 01/27/23 08:12 36.7 01/27/23 08:00 93 149/94 (118) Vapotherm 30.00 100.00 01/27/23 07:04 90 Vapotherm 35.00 95 01/27/23 07:00 91 01/27/23 07:00 79 17 143/92 (109) 90 Vapotherm 30.00 100.00 01/27/23 06:37 Vapotherm 35.00 95.00 01/27/23 06:23 Vapotherm 30.00 90.00 01/27/23 06:00 78 19 133/88 (103) 91 NIV Bilevel 55.00 01/27/23 05:00 77 16 144/94 (111) 92 NIV Bilevel 55.00 01/27/23 04:48 96 NIV Bilevel 55 01/27/23 04:00 78 19 125/93 (104) 92 NIV Bilevel 55.00 01/27/23 03:00 82 27 147/92 (110) 93 NIV Bilevel 55.00 01/27/23 02:55 36.6 NIV Bilevel 55.00 01/27/23 02:15 82 18 93 55.00 01/27/23 02:00 82 18 142/87 (105) 94 NIV Bilevel 55.00 01/27/23 01:00 83 01/27/23 01:00 86 18 146/86 (106) 95 NIV Bilevel 55.00 01/27/23 00:31 36.7 NIV Bilevel 55.00 01/27/23 00:31 95 NIV Bilevel 55 01/27/23 00:00 90 21 134/88 (103) 96 NIV Bilevel 55.00 01/26/23 23:00 96 25 142/96 (111) 95 NIV Bilevel 55.00 01/26/23 22:38 96 19 93 55.00 01/26/23 22:09 NIV Bilevel 55.00 01/26/23 22:00 93 18 137/90 (106) 100 Vapotherm 40.00 100.00 01/26/23 21:00 101 19 128/87 (101) 100 Vapotherm 40.00 100.00 01/26/23 20:05 Vapotherm 40.00 100.00 01/26/23 20:00 92 Vapotherm 40.00 100 01/26/23 20:00 104 20 117/80 (92) 99 Vapotherm 30.00 80.00 01/26/23 19:26 36.6 01/26/23 19:00 108 01/26/23 19:00 106 22 115/70 (85) 97 Vapotherm 30.00 80.00 01/26/23 19:00 36.8 Vapotherm 30.00 80.00 01/26/23 18:34 96 Vapotherm 30.00 80 01/26/23 18:00 101 39 148/87 (107) 94 Vapotherm 30.00 80.00 01/26/23 18:00 148/87 (107) 01/26/23 17:00 92 31 125/84 (98) 96 Vapotherm 30.00 80.00 01/26/23 16:00 36.7 01/26/23 16:00 52 113/80 (91) 97 Vapotherm 30.00 80.00 01/26/23 15:33 94 Vapotherm 30.00 80 01/26/23 15:00 94 23 113/58 (73) 99 Vapotherm 30.00 80.00 01/26/23 14:41 93 Vapotherm 30.00 80 01/26/23 14:00 94 33 109/71 (85) 95 Vapotherm 30.00 80.00 01/26/23 13:00 95 28 103/76 (81) 95 Vapotherm 30.00 80.00 01/26/23 12:40 88 01/26/23 12:19 92 Vapotherm 30.00 80 01/26/23 12:00 92 101/77 (84) 95 Vapotherm 30.00 80.00 01/26/23 11:59 36.8 01/26/23 11:59 36.5 01/26/23 11:25 Vapotherm 30.00 80.00 01/26/23 11:02 90 Vapotherm 30.00 95 01/26/23 11:01 88 Vapotherm 30.00 95 01/26/23 11:00 189 23 111/73 (86) 93 Vapotherm 30.00 95.00 01/26/23 10:00 85 26 100/72 (81) 93 Vapotherm 30.00 95.00 01/26/23 09:00 83 17 117/75 (89) 96 Vapotherm 30.00 95.00 I & O 01/27/23 07:00 Intake Total 2265 ml Output Total 1775 ml Balance 490 ml Height & Weight Height: '" Weight: lbs. oz. kg; 18.41 BMI Method: General Appearance: No Apparent Distress, Chronically ill, Cachetic HEENT: PERRL/EOMI, Pharynx Normal Neck: Normal Inspection, Supple Respiratory: Decreased Breath Sounds; No Wheezing Cardiovascular: Regular Rate, Rhythm, No Murmur Capillary Refill: Less Than 3 Seconds Gastrointestinal: normal bowel sounds, non tender, soft Extremity: No Pedal Edema Neurologic/Psychiatric: Alert, Oriented x3 Skin: Normal Color, Warm/Dry Results Lab Laboratory Tests 01/26/23 04:11 01/27/23 04:00 Assessment/Plan Assessment/Plan See free text. Critical Care: Critically Ill Patient VINOD KAUR MD Jan 27, 2023 08:47
[2023-01-27] MEDS: NICOTINE PATCH REMOVAL TP SCH (09:22)
[2023-01-27] MEDS: lisINopril 20 MG (PRINIVIL) TABLET PO SCH (09:22)
[2023-01-27] MEDS: NICOTINE 7 MG (NICODERM) PATCH TD SCH (09:22)
[2023-01-27] MEDS: DOXYCYCLINE INJECTION 100 MG in NS (IVPB) 100 ML IV SCH ×2 (09:22→21:20)
[2023-01-27] MEDS: ONDANSETRON 4 MG/2 ML (SDV) Z0FRAN IV PRN (09:22)
[2023-01-27] MEDS: amLODIPine 5 MG (NORVASC) TAB PO SCH (09:23)
[2023-01-27] MEDS: FOLIC ACID 1 MG TAB PO SCH (09:23)
[2023-01-27] MEDS: meTOprolol TARTRATE 50 MG (LOPRESSOR) TAB PO SCH ×2 (09:23→21:20)
[2023-01-27] MEDS: RT--FLUTICASONE/SALMETEROL 232-14 (AIRDUO RespiCLICK) IH SCH ×2 (10:50→18:52)
--- NOTE | 2023-01-27 11:09 | Progress Note - Hospitalist ---
Subjective HPI/CC On Admission Date Seen by Provider: Jan 27, 2023 Lyndsey Sosa is a 72 year old female with PMH metastatic lung cancer on chemotherapy, chemotherapy induced pancytopenia, COPD, HTN, HLD, GERD, cachexia, who presented with shortness of breath. She has been having fevers. She denies cough. She has been on outpatient antibiotics but was not improving. She denies chest pain. She denies abdominal pain. She denies nausea and vomiting. She last had chemotherapy about one week ago. Subjective/Events-last exam Pt complains of nausea this morning. Breathing about this same. Was on BiPAP overnight and now back on Vapotherm. Objective Exam Vital Signs Vital Signs Date Time Temp Pulse Resp B/P (MAP) Pulse Ox O2 Delivery O2 Flow Rate FiO2 01/27/23 10:54 90 Vapotherm 30.00 100 01/27/23 10:00 76 21 130/89 (107) 01/27/23 08:12 36.7 Capillary Refill : Less Than 3 Seconds General Appearance: No Apparent Distress, Chronically ill, Cachetic Respiratory: No Respiratory Distress, Decreased Breath Sounds, Wheezing (scant wheeze on first inspiration) Cardiovascular: Regular Rate, Rhythm, No Murmur Gastrointestinal: Normal Bowel Sounds, Non Tender, Soft Neurologic/Psychiatric: Alert, Oriented x3 Results/Procedures Lab Laboratory Tests 01/27/23 04:00 Patient resulted labs reviewed. Imaging: Reviewed Imaging Report Assessment/Plan Assessment and Plan Assess & Plan/Chief Complaint Sepsis due to pneumonia Acute on chronic respiratory failure with hypoxia Metastatic lung cancer Chemotherapy induced pancytopenia COPD Cachexia Pain of metastatic malignancy HTN HLD GERD Still on Vapotherm () May need to try longer term with BiPAP as she was done to 55% FiO2 with that overnight MAT protocol Completed 7 day course of Zosyn, doing well continue to monitor off abx DNR/DNI- confirmed with her / Dr Marroquin consulted, appreciate recs Discussed with him earlier in admission, patient on Keytruda and had good response so far Continue steroids Would benefit from LTACH admission for long wean given her complex medical issues and lung disease Referral sent Add PT/OT DVT ppx: Lovenox Diet: regular Critical Care Critically Ill Patient RONEN PÉREZ MD Jan 27, 2023 11:09
[2023-01-27] MEDS: ENOXAPARIN INJECTION 30 MG/0.3 ML SYR SC SCH (11:43)
[2023-01-27] MEDS: PANTOPRAZOLE 40 MG (PROTONIX) TAB PO SCH (11:43)
--- NOTE | 2023-01-27 14:04 | Physical Therapy Progress Note ---
Therapy Progress Note Pt declined PT evaluation this date. Pt reports "I'm having a bad day". Pain not rated but reports she is having a lot of pain. PT will attempt 01/29/2023 BELÉN SCALES DPNewton Jan 27, 2023 14:03
[2023-01-27] MEDS: UMECLIDINIUM BROMIDE (INCRUSE ELLIPTA) 7'S IH SCH (15:04)
[2023-01-27] MEDS: MELATONIN 3 MG TABLET PO SCH (21:20)
[2023-01-27] MEDS: ROSUVASTATIN 20 MG (CRESTOR) TABLET PO SCH (21:20)
[2023-01-27] MEDS: DexMEDEtomidine 250 ML DRIP 250 ML IV SCH (21:23)
[2023-01-28 03:07] VITALS: BP 124/82
[2023-01-28] MEDS: RT-ALBUTEROL HFA 8.5 GM INHALER IH SCH ×6 (03:07→20:51)
[2023-01-28 04:04] LABS: BASOPHILS % (AUTO) 0 % (0-10); EOSINOPHILS # (AUTO) 0.1 10^3/uL (0.0-0.3); EOSINOPHILS % (AUTO) 2 % (0-10); HEMATOCRIT 27 % (35-52); HEMOGLOBIN 8.3 g/dL (11.5-16.0); LYMPHOCYTES # (AUTO) 0.4 10^3/uL (1.0-4.0); LYMPHOCYTES % (AUTO) 6 % (12-44); MEAN CORPUSCULAR HEMOGLOBIN 29 pg (25-34); MEAN CORPUSCULAR HGB CONC 31 g/dL (32-36); MEAN CORPUSCULAR VOLUME 92 fL (80-99); MEAN PLATELET VOLUME 9.9 fL (9.0-12.2); MONOCYTES # (AUTO) 0.5 10^3/uL (0.0-1.0); MONOCYTES % (AUTO) 7 % (0-12); NEUTROPHILS # (AUTO) 5.8 10^3/uL (1.8-7.8); NEUTROPHILS % (AUTO) 80 % (42-75); PLATELET COUNT 147 10^3/uL (130-400); WHITE BLOOD COUNT 7.3 10^3/uL (4.3-11.0)
[2023-01-28 04:18] LABS: ALBUMIN 2.4 GM/DL (3.2-4.5); POTASSIUM 4.4 MMOL/L (3.6-5.0)
[2023-01-28 04:20] LABS: CALCIUM 8.3 MG/DL (8.5-10.1)
[2023-01-28 04:21] LABS: TOTAL PROTEIN 4.4 GM/DL (6.4-8.2)
[2023-01-28 04:23] LABS: BILIRUBIN,TOTAL 0.2 MG/DL (0.1-1.0)
[2023-01-28 04:24] LABS: PHOSPHORUS 3.3 MG/DL (2.3-4.7)
[2023-01-28 04:25] LABS: CREATININE SERUM 0.72 MG/DL (0.60-1.30)
[2023-01-28 04:27] LABS: MAGNESIUM 1.9 MG/DL (1.6-2.4)
[2023-01-28] MEDS: morphine ER 15 MG (MS CONTIN) TAB PO SCH ×3 (05:48→21:17)
[2023-01-28] MEDS: predniSONE 20 MG TAB PO SCH (05:48)
[2023-01-28] MEDS: MAGNESIUM 1 GM/100 ML IVPB 100 ML IV SCH (06:09)
[2023-01-28] MEDS: POTASSIUM CL 10MEQ/50ML IVPB 50 ML IV SCH (06:09)
[2023-01-28] MEDS: KCL 20 MEQ TAB (K-DUR) PO SCH (06:12)
[2023-01-28] MEDS: CATHETER FLUSH 10 ML SYR IVP SCH ×3 (06:12→21:14)
[2023-01-28] MEDS: UMECLIDINIUM BROMIDE (INCRUSE ELLIPTA) 7'S IH SCH (06:26)
[2023-01-28] MEDS: RT--FLUTICASONE/SALMETEROL 232-14 (AIRDUO RespiCLICK) IH SCH ×2 (06:27→20:51)
[2023-01-28] MEDS: LORazepam 0.5 MG (ATIVAN) TABLET PO PRN ×2 (08:09→19:58)
[2023-01-28] MEDS: DOXYCYCLINE INJECTION 100 MG in NS (IVPB) 100 ML IV SCH ×2 (08:25→21:13)
[2023-01-28] MEDS: NICOTINE PATCH REMOVAL TP SCH (08:25)
[2023-01-28] MEDS: FOLIC ACID 1 MG TAB PO SCH (08:25)
[2023-01-28] MEDS: lisINopril 20 MG (PRINIVIL) TABLET PO SCH (08:25)
[2023-01-28] MEDS: amLODIPine 5 MG (NORVASC) TAB PO SCH (08:25)
[2023-01-28] MEDS: NICOTINE 7 MG (NICODERM) PATCH TD SCH (08:25)
[2023-01-28] MEDS: meTOprolol TARTRATE 50 MG (LOPRESSOR) TAB PO SCH ×2 (08:26→21:13)
--- NOTE | 2023-01-28 09:26 | Tele-ICU Progress Note ---
Progress Note video rounds completed 72 y/o f with COPD and PNA and resp failure with adenoca ofthe lung with bone and adrenal mets on chemo therapy Currently onb doxycyclene On multiple inhalers and nebs PE: all vitals normal No new issues PLAN: continue antibiotics and nebs Time spent in review 20 minutes Focused Exam Height, Weight, BMI Height: '" Weight: lbs. oz. kg; 18.41 BMI Method: Labs Laboratory Tests 01/28/23 03:56 Results Results/Procedures Labs Laboratory Tests 01/27/23 04:00 01/28/23 03:56 Patient resulted labs reviewed. Imaging: Reviewed Imaging Report Results Labs Labs Laboratory Tests 01/28/23 03:56: White Blood Count 7.3, Red Blood Count 2.90L, Hemoglobin 8.3L, Hematocrit 27L, Mean Corpuscular Volume 92, Mean Corpuscular Hemoglobin 29, Mean Corpuscular Hemoglobin Concent 31L, Red Cell Distribution Width 16.0H, Platelet Count 147, Mean Platelet Volume 9.9, Immature Granulocyte % (Auto) 6, Neutrophils (%) ( Auto) 80H, Lymphocytes (%) (Auto) 6L, Monocytes (%) (Auto) 7, Eosinophils (%) (Auto) 2, Basophils (%) (Auto) 0, Neutrophils # (Auto) 5.8, Lymphocytes # (Auto) 0.4L, Monocytes # (Auto) 0.5, Eosinophils # (Auto) 0.1, Basophils # (Auto) 0.0, Immature Granulocyte # (Auto) 0.4H, Sodium Level 138, Potassium Level 4.4, Chloride Level 105, Carbon Dioxide Level 25, Anion Gap 8, Blood Urea Nitrogen 18, Creatinine 0.72, Estimat Glomerular Filtration Rate 90, BUN/Creatinine Ratio 25, Glucose Level 93, Calcium Level 8.3L, Corrected Calcium 9.6, Phosphorus Level 3.3, Magnesium Level 1.9, Total Bilirubin 0.2, Aspartate Amino Transf (AST/SGOT) 14, Alanine Aminotransferase (ALT/SGPT) 18, Alkaline Phosphatase 96, Total Protein 4.4L, Albumin 2.4L Microbiology 01/17/23 MRSA Screen - Final, Complete MRSA not isolated 01/17/23 Blood Culture - Final, Complete No growth MIRANDA RODRÍGUEZ MD Jan 28, 2023 09:26
--- NOTE | 2023-01-28 09:39 | Progress Note - Hospitalist ---
Subjective HPI/CC On Admission Date Seen by Provider: Jan 28, 2023 Lyndsey Sosa is a 72 year old female with PMH metastatic lung cancer on chemotherapy, chemotherapy induced pancytopenia, COPD, HTN, HLD, GERD, cachexia, who presented with shortness of breath. She has been having fevers. She denies cough. She has been on outpatient antibiotics but was not improving. She denies chest pain. She denies abdominal pain. She denies nausea and vomiting. She last had chemotherapy about one week ago. Subjective/Events-last exam Pt reports feeling about the same. Had a nightmare last night that bothered her but otherwise no complaints. Doing well on BiPAP. Off for meals. Objective Exam Vital Signs Vital Signs Date Time Temp Pulse Resp B/P (MAP) Pulse Ox O2 Delivery O2 Flow Rate FiO2 01/28/23 09:00 80 16 123/82 (93) 96 Vapotherm 30.00 85.00 01/28/23 07:53 36.1 01/28/23 06:27 85 Capillary Refill : Less Than 3 Seconds General Appearance: No Apparent Distress, Chronically ill, Thin Respiratory: No Accessory Muscle Use; No Crackles; Decreased Breath Sounds; No Wheezing; Other (on Vapotherm) Cardiovascular: Regular Rate, Rhythm, No Murmur Neurologic/Psychiatric: Alert, Oriented x3 Results/Procedures Lab Laboratory Tests 01/28/23 03:56 Patient resulted labs reviewed. Imaging: Reviewed Imaging Report Assessment/Plan Assessment and Plan Assess & Plan/Chief Complaint Sepsis due to pneumonia Acute on chronic respiratory failure with hypoxia Metastatic lung cancer Chemotherapy induced pancytopenia COPD Cachexia Pain of metastatic malignancy HTN HLD GERD Was switched to BiPAP overnight and did well, off for meals- continue BiPAP MAT protocol Completed 7 day course of Zosyn, doing well- continue to monitor off abx DNR/DNI- confirmed with her / Dr Marroquin consulted, appreciate recs Discussed with him earlier in admission, patient on Keytruda and had good response so far Continue steroids Would benefit from LTACH admission for long wean given her complex medical issues and lung disease Referral sent PT/OT DVT ppx: Lovenox Diet: regular Critical Care Critically Ill Patient RONEN PÉREZ MD Jan 28, 2023 09:39
[2023-01-28 11:01] VITALS: BP 92/63
[2023-01-28] MEDS: ENOXAPARIN INJECTION 30 MG/0.3 ML SYR SC SCH (12:24)
[2023-01-28] MEDS: PANTOPRAZOLE 40 MG (PROTONIX) TAB PO SCH (12:24)
[2023-01-28] MEDS: ROSUVASTATIN 20 MG (CRESTOR) TABLET PO SCH (21:13)
[2023-01-28] MEDS: MELATONIN 3 MG TABLET PO SCH (21:14)
[2023-01-29] MEDS: LORazepam 0.5 MG (ATIVAN) TABLET PO PRN ×4 (00:57→22:23)
[2023-01-29] MEDS: RT-ALBUTEROL HFA 8.5 GM INHALER IH SCH ×6 (02:37→22:11)
[2023-01-29 04:09] LABS: BASOPHILS % (AUTO) 0 % (0-10); EOSINOPHILS # (AUTO) 0.1 10^3/uL (0.0-0.3); EOSINOPHILS % (AUTO) 2 % (0-10); HEMATOCRIT 27 % (35-52); HEMOGLOBIN 8.5 g/dL (11.5-16.0); LYMPHOCYTES # (AUTO) 0.5 10^3/uL (1.0-4.0); LYMPHOCYTES % (AUTO) 6 % (12-44); MEAN CORPUSCULAR HEMOGLOBIN 29 pg (25-34); MEAN CORPUSCULAR HGB CONC 31 g/dL (32-36); MEAN CORPUSCULAR VOLUME 93 fL (80-99); MEAN PLATELET VOLUME 10.1 fL (9.0-12.2); MONOCYTES # (AUTO) 0.6 10^3/uL (0.0-1.0); MONOCYTES % (AUTO) 7 % (0-12); NEUTROPHILS # (AUTO) 6.9 10^3/uL (1.8-7.8); NEUTROPHILS % (AUTO) 81 % (42-75); PLATELET COUNT 150 10^3/uL (130-400); WHITE BLOOD COUNT 8.5 10^3/uL (4.3-11.0)
[2023-01-29 04:29] LABS: ALBUMIN 2.3 GM/DL (3.2-4.5); BILIRUBIN,TOTAL 0.2 MG/DL (0.1-1.0); CALCIUM 8.7 MG/DL (8.5-10.1); CREATININE SERUM 0.98 MG/DL (0.60-1.30); MAGNESIUM 1.6 MG/DL (1.6-2.4); POTASSIUM 3.8 MMOL/L (3.6-5.0); TOTAL PROTEIN 4.4 GM/DL (6.4-8.2)
[2023-01-29] MEDS: MAGNESIUM 1 GM/100 ML IVPB 100 ML IV SCH ×2 (05:03→07:09)
[2023-01-29] MEDS: POTASSIUM CL 10MEQ/50ML IVPB 50 ML IV SCH (05:04)
[2023-01-29] MEDS: KCL 20 MEQ TAB (K-DUR) PO SCH (05:04)
[2023-01-29] MEDS: CATHETER FLUSH 10 ML SYR IVP SCH ×3 (05:05→22:29)
[2023-01-29] MEDS: predniSONE 20 MG TAB PO SCH (05:55)
[2023-01-29] MEDS: morphine ER 15 MG (MS CONTIN) TAB PO SCH ×3 (05:55→21:23)
[2023-01-29] MEDS ORDERED: KCL 20 MEQ TAB (K-DUR) PO ONE (08:00)
[2023-01-29] MEDS: lisINopril 20 MG (PRINIVIL) TABLET PO SCH (08:10)
[2023-01-29] MEDS: FOLIC ACID 1 MG TAB PO SCH (08:10)
[2023-01-29] MEDS: NICOTINE 7 MG (NICODERM) PATCH TD SCH (08:10)
[2023-01-29] MEDS: meTOprolol TARTRATE 50 MG (LOPRESSOR) TAB PO SCH ×2 (08:10→21:23)
[2023-01-29] MEDS: DOXYCYCLINE INJECTION 100 MG in NS (IVPB) 100 ML IV SCH ×2 (08:10→20:01)
[2023-01-29] MEDS: amLODIPine 5 MG (NORVASC) TAB PO SCH (08:10)
[2023-01-29] MEDS: NICOTINE PATCH REMOVAL TP SCH (08:10)
--- NOTE | 2023-01-29 10:06 | Physical Therapy Evaluation ---
PT Evaluation-General Medical Diagnosis Admission Date Jan 17, 2023 at 22:44 Medical Diagnosis: CAP Onset Date: Jan 17, 2023 Therapy Diagnosis Therapy Diagnosis: generalized weakness/debility Precautions Precautions/Isolations: Fall Prevention, Standard Precautions Referral Physician: Niyah Reason for Referral: Evaluation/Treatment Medical History Pertinent Medical History: COPD, HTN, Smoking Additional Medical History metastatic lung cancer Current History admit due to SOA and sepsis Reviewed History: Yes Prior Prior Level of Function SCALE: Activities may be completed with or without assistive devices. 2-Mgeyhoalan-fvpidvz completes the activity by him/herself with no assistance from a helper. 5-Set-up or Clean-up Assistance-helper sets up or cleans up; patient completes activity. [place] assists only prior to or following the activity. 4-Supervision or Touching Assistance-helper provides verbal cues and/or touching/steadying and/or contact guard assistance as patient completes activity. Assistance may be provided throughout the activity or intermittently. 3-Partial/Moderate Assistance-helper does LESS THAN HALF the effort. [place] lifts, holds or supports trunk or limbs, but provides less than half the effort. 2-Substantial/Maximal Assistance-helper does MORE THAN HALF the effort. [place] lifts or holds trunk or limbs and provides more than half the effort. 5-Dmzhdgjfv-blqtgy does ALL the effort. Patient does none of the effort to complete the activity. Or, the assistance of 2 or more helpers is required for the patient to complete the activity. If activity was not attempted, code reason: 7-Patient Refused. 9-Not Applicable-not attempted and the patient did not perform the activity before the current illness, exacerbation or injury. 10-Not Attempted due to Environmental Limitations-(lack of equipment, weather restraints, etc.). 88-Not Attempted due to Medical Conditions or Safety Concerns. Bed Mobility: 6 Transfers (B,C,W/C): 6 Gait: 6 Indoor Mobility (Ambulation): Independent Prior Devices Use: Walker (PRN) PT Evaluation-Current Subjective Patient agrees to PT. Pain Numeric Pain Scale: 0-No Pain Location: No Pain Reported Objective Patient Orientation: Person, Time, Situation Attachments: Central Line, Oxygen (vapotherm 100%), Vo Catheter ROM/Strength ROM Lower Extremities bilateral LE WFL Strength Lower Extremities 3+/5 grossly bilateral LE Integumentary/Posture Integumentary refer to nursing notes Bladder Incontinence: Vo Cath Posture slightly kyphotic Neuromuscular (Tone, Coordination, Reflexes) grossly intact Sensory Vision: Functional Hearing: Functional Transfers Lying to Sitting/Side of Bed(Q: 6 Sit to Stand (QC): 4 Chair/Wko-fr-Yeake Xfer(QC): 4 Gait Mode of Locomotion: Walk Anticipated Mode of Locomotion: Walk Walk 10 feet (QC): 4 Distance: 10' Gait Assistive Device: None Comments/Gait Description slightly unsteady with self correct Balance Sitting Static: Normal Sitting Dynamic: Normal Standing Static: Fair Standing Dynamic: Fair Assessment/Needs Patient will benefit from skilled PT to address functional strength and mobility to improve current LOF. Patient limited by O2 and decreased SAO2 with minimal activity. Rehab Potential: Guarded PT Ocular Care Technician Goals Ocular Care Technician Goals PT Ocular Care Technician Goals Time Frame: Feb 10, 2023 Roll Left & Right (QC): 6 Sit to Lying (QC): 6 Lying-Sitting on Side/Bed(QC): 6 Sit to Stand (QC): 6 Chair/Hrl-aq-Tzuzd Xfer(QC): 6 Walk 10 feet (QC): 6 Walk 50ft with 2 Turns (QC): 6 PT Plan Problem List Problem List: Activity Tolerance, Functional Strength, Safety, Balance, Gait, Transfer Treatment/Plan Treatment Plan: Continue Plan of Care Treatment Plan: Education, Functional Activity Andra, Functional Strength, Gait , Safety, Therapeutic Exercise, Transfers Treatment Duration: Feb 10, 2023 Frequency: 6 times per week Estimated Hrs Per Day: .25 hour per day Patient and/or Family Agrees t: Yes Time Time In: 740 Time Out: 756 DATE: Jan 29, 2023 Total Billed Treatment Time: 16 [facility] ELISSA VALLE PT Jan 29, 2023 10:06
[2023-01-29] MEDS: UMECLIDINIUM BROMIDE (INCRUSE ELLIPTA) 7'S IH SCH (10:46)
[2023-01-29] MEDS: RT--FLUTICASONE/SALMETEROL 232-14 (AIRDUO RespiCLICK) IH SCH ×2 (10:46→22:12)
--- NOTE | 2023-01-29 11:26 | Tele-ICU Progress Note ---
Subjective Date Seen by a Provider: Jan 29, 2023 Time Seen by a Provider: 11:26 Subjective/Events-last exam (Tele-ICU Physician , Progress Note ) Service provided via interactive audio and video telecommunications E-CARE system to a patient admitted to ICU bed in [facility]. Patient is seen today due to persistent need of ICU care Available chart/ vitals / labs / Images reviewed Video assessment done using teleICU camera, rest of exam as per RN Discussed with RN Events overnight : Afebrile hemodynamically stable Respiratory - I/O = pos Drips: LR 50 Pressors- no Hospital course: (01/17) 72yr old female admitted with pneumonia- transferrred to medical floow AM (01/20) transfered back for increased O2 demands. 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 Discussed with RN to reach out if any questions or concerns A total of 20 minutes of critical care time was devoted to this patient today, required to treat and/or prevent further deterioration of critical care condition ( as above ) . I am remotely monitoring this patient from another state. I am unable to do the bedside exam, and history/physical and pertinent information is taken from other notes in the computer and bedside staff. Sepsis Event Evaluation Height, Weight, BMI Height: '" Weight: lbs. oz. kg; 18.41 BMI Method: Exam Exam Patient acknowledged, consented, and participated in this virtual visit which was conducted using real time audio/video Vital Signs Date Time Temp Pulse Resp B/P (MAP) Pulse Ox O2 Delivery O2 Flow Rate FiO2 01/29/23 10:46 95 Vapotherm 35.00 85 01/29/23 10:00 70 40 138/100 (113) 88 Vapotherm 35.00 100.00 01/29/23 09:24 93 82 65 01/29/23 09:00 70 19 140/84 (102) 93 Vapotherm 35.00 100.00 01/29/23 08:44 22 87 Vapotherm 35.00 100.00 01/29/23 08:19 22 87 Vapotherm 40.00 100.00 01/29/23 08:15 Vapotherm 40.00 100.00 01/29/23 08:00 37.0 01/29/23 08:00 97 21 139/82 (101) 88 Vapotherm 30.00 100.00 01/29/23 07:48 87 Vapotherm 35.00 95 01/29/23 07:32 89 01/29/23 07:15 Vapotherm 30.00 100.00 01/29/23 07:09 82 Vapotherm 30.00 65 01/29/23 07:00 86 21 106/84 (91) 90 Vapotherm 30.00 65.00 01/29/23 06:00 80 18 137/84 (104) 100 01/29/23 05:00 73 16 147/89 (117) 99 Vapotherm 30.00 65.00 01/29/23 04:15 30.00 65.00 01/29/23 04:00 77 16 138/81 (100) 99 Vapotherm 30.00 75.00 01/29/23 04:00 Vapotherm 01/29/23 04:00 36.1 Vapotherm 30.00 75.00 01/29/23 03:05 30.00 85.00 01/29/23 03:00 77 14 143/76 (93) 100 Vapotherm 30.00 95.00 01/29/23 02:37 94 Vapotherm 30.00 95 01/29/23 02:00 84 16 140/79 (95) 99 01/29/23 01:00 86 01/29/23 01:00 80 14 158/92 (102) 94 01/29/23 00:00 82 16 142/87 (102) 94 01/29/23 00:00 36.0 82 16 142/87 (102) 94 Vapotherm 30.00 95.00 01/29/23 00:00 Vapotherm 30.00 95 01/28/23 23:00 86 16 149/87 (104) 97 01/28/23 22:00 86 17 143/83 (96) 99 01/28/23 21:00 101 20 139/91 (102) 93 01/28/23 20:51 88 Vapotherm 30.00 95 01/28/23 20:00 105 24 147/90 (115) 97 01/28/23 19:40 96 24 97 Vapotherm 30.00 95.00 01/28/23 19:40 Vapotherm 30.00 95 01/28/23 19:37 36.6 01/28/23 19:30 98 132/82 (91) 100 01/28/23 19:00 97 18 129/92 (110) 90 01/28/23 19:00 97 01/28/23 18:39 94 Vapotherm 30.00 95 01/28/23 18:00 89 19 117/73 (84) 95 Vapotherm 30.00 85.00 01/28/23 17:30 Vapotherm 30.00 85.00 01/28/23 17:15 90 115/72 01/28/23 17:00 87 115/72 (89) 97 NIV Bilevel 55.00 01/28/23 16:00 94 Vapotherm 30.00 100 01/28/23 16:00 93 108/61 (75) 97 NIV Bilevel 55.00 01/28/23 15:20 36.3 01/28/23 15:00 101 31 93/60 (66) 86 NIV Bilevel 55.00 01/28/23 14:55 95 Vapotherm 30.00 95 01/28/23 14:00 86 33 98/83 (89) 98 NIV Bilevel 55.00 01/28/23 13:00 84 20 102/65 (82) 98 Vapotherm 30.00 85.00 01/28/23 13:00 72 01/28/23 12:45 75 107/70 01/28/23 12:30 Vapotherm 30.00 85.00 01/28/23 12:00 98 Vapotherm 30.00 100 01/28/23 12:00 74 19 107/70 (87) 97 NIV Bilevel 55.00 01/28/23 11:53 36.0 I & O 01/29/23 07:00 Intake Total 1250 ml Output Total 1675 ml Balance -425 ml Height & Weight Height: '" Weight: lbs. oz. kg; 18.41 BMI Method: General Appearance: No Apparent Distress, Chronically ill, Thin HEENT: PERRL/EOMI, Pharynx Normal Neck: Normal Inspection, Supple Respiratory: No Accessory Muscle Use; No Crackles; Decreased Breath Sounds; No Wheezing; Other (on Vapotherm) Cardiovascular: Regular Rate, Rhythm, No Murmur Capillary Refill: Less Than 3 Seconds Gastrointestinal: normal bowel sounds, non tender, soft Extremity: No Pedal Edema Neurologic/Psychiatric: Alert, Oriented x3 Skin: Normal Color, Warm/Dry Results Lab Laboratory Tests 01/28/23 03:56 01/29/23 04:00 Assessment/Plan Assessment/Plan 1 ARELI OROPEZA MD Jan 29, 2023 11:26
[2023-01-29] MEDS: PANTOPRAZOLE 40 MG (PROTONIX) TAB PO SCH (11:31)
[2023-01-29] MEDS: ENOXAPARIN INJECTION 30 MG/0.3 ML SYR SC SCH (11:31)
--- NOTE | 2023-01-29 15:35 | Occupational Therapy Eval ---
OT Evaluation-General/PLF Medical Diagnosis Admission Date Jan 17, 2023 at 22:44 Medical Diagnosis: CAP Onset Date: Jan 17, 2023 Therapy Diagnosis Therapy Diagnosis: weakness SOA Precautions Precautions/Isolations: Fall Prevention, Standard Precautions Weight Bear Status Weight Bearing Restriction: Full Weight Bearing Referral Physician: Niyah Referral Reason: Activity Tolerance, Evaluation/Treatment Medical History Pertinent Medical History: COPD, HTN, Smoking Additional Medical History Cancer Reviewed History: Yes Social History Home: Single Level Current Living Status: Alone (sister helps as needed) SOA and 02 desaturation to 84 w/ communication supine in bed ADL-Prior Level of Function SCALE: Activities may be completed with or without assistive devices. 0-Pjdimgejxb-hmgkwsj completes the activity by him/herself with no assistance from a helper. 5-Set-up or Clean-up Assistance-helper sets up or cleans up; patient completes activity. [place] assists only prior to or following the activity. 4-Supervision or Touching Assistance-helper provides verbal cues and/or touching/steadying and/or contact guard assistance as patient completes activity. Assistance may be provided throughout the activity or intermittently. 3-Partial/Moderate Assistance-helper does LESS THAN HALF the effort. [place] lifts, holds or supports trunk or limbs, but provides less than half the effort. 2-Substantial/Maximal Assistance-helper does MORE THAN HALF the effort. [place] lifts or holds trunk or limbs and provides more than half the effort. 6-Aqzsqmofa-zxrqic does ALL the effort. Patient does none of the effort to complete the activity. Or, the assistance of 2 or more helpers is required for the patient to complete the activity. If activity was not attempted, code reason: 7-Patient Refused. 9-Not Applicable-not attempted and the patient did not perform the activity before the current illness, exacerbation or injury. 10-Not Attempted due to Environmental Limitations-(lack of equipment, weather restraints, etc.). 88-Not Attempted due to Medical Conditions or Safety Concerns. OT Current Status Mental Status/Objective Attachments: IV, Oxygen (vasotherm) Current Upper Extremity ROM BUE ROM WFLS, 02 drops w/ siting up in bed and raising arms Upper Extremity Strength 3/5 ADL-Treatment Did not perform ADLS d/t rapid decrease in 02 levels ( 82) w/ sitting in reclined position w/ back unsupported. Education OT Patient Education: Energy conservation, Progress toward Goal/Update tx plan, Purpose of tx/functional activities, Reviewed precautions, Rehab process Teaching Recipient: Patient, Family Teaching Methods: Demonstration, Discussion Response to Teaching: Verbalize Understanding, Reinforcement Needed OT Skilled Nursing Goals Recreational Counselor Goals Eating (QC): 5 Oral Hygiene (QC): 4 Toileting Hygiene (QC): 4 Shower/Bathe Self (QC): 4 Upper Body Dressing (QC): 4 Lower Body Dressing (QC): 4 On/Off Footwear (QC): 4 1=Demonstrate adherence to instructed precautions during ADL tasks. 2=Patient will verbalize/demonstrate understanding of assistive devices/modifications for ADL. 3=Patient will improve strength/tolerance for activity to enable patient to perform ADL's. OT Education/Plan Problem List/Assessment Assessment: Decreased Activ Tolerance, Decreased UE Strength, Impaired Funct Balance, Impaired Self-Care Skills Discharge Recommendations Plan/Recommendations: Continue POC Therapy Discharge Recommendati: Post Acute OT Treatment Plan/Plan of Care Treatment,Training & Education: Yes Patient would benefit from OT for education, treatment and training to promote independence in ADL's, mobility, safety and/or upper extremity function for ADL's. Plan of Care: ADL Retraining, Concurrent Therapy, Functional Mobility, Group Exercise/Act as Ind, UE Funct Exercise/Act Treatment Duration: Feb 10, 2023 Frequency: 3 times per week (3-5 times per week) Rehab Potential: Guarded Time Start Time: 15:00 Stop Time: 15:19 DATE: Jan 29, 2023 Total Time Billed (hr/min): 19 Billed Treatment Time EV 19 min TREVOR SILVERMAN OT Jan 29, 2023 15:35
--- NOTE | 2023-01-29 17:47 | Progress Note - Hospitalist ---
Subjective HPI/CC On Admission Date Seen by Provider: Jan 29, 2023 Time Seen by Provider: 09:20 Lyndsey Sosa is a 72 year old female with PMH metastatic lung cancer on chemotherapy, chemotherapy induced pancytopenia, COPD, HTN, HLD, GERD, cachexia, who presented with shortness of breath. She has been having fevers. She denies cough. She has been on outpatient antibiotics but was not improving. She denies chest pain. She denies abdominal pain. She denies nausea and vomiting. She last had chemotherapy about one week ago. Subjective/Events-last exam She is feeling tired. She is not short of breath. She has no other complaints. Objective Exam Vital Signs Vital Signs Date Time Temp Pulse Resp B/P (MAP) Pulse Ox O2 Delivery O2 Flow Rate FiO2 01/29/23 17:00 90 17 131/74 (93) 95 Vapotherm 35.00 100.00 01/29/23 16:01 85 01/29/23 15:56 37.0 Capillary Refill : Less Than 3 Seconds General Appearance: No Apparent Distress, Chronically ill, Thin Respiratory: No Accessory Muscle Use, No Respiratory Distress, Decreased Breath Sounds Cardiovascular: Regular Rate, Rhythm, No Murmur Gastrointestinal: Normal Bowel Sounds, Soft Extremity: Normal Inspection, No Pedal Edema Neurologic/Psychiatric: Alert, Depressed Affect Skin: Normal Color, Warm/Dry Results/Procedures Lab Laboratory Tests 01/29/23 04:00 Patient resulted labs reviewed. Imaging: Reviewed Imaging Report Assessment/Plan Assessment and Plan Assess & Plan/Chief Complaint Sepsis due to pneumonia Acute on chronic respiratory failure with hypoxia Metastatic lung cancer Chemotherapy induced pancytopenia COPD Cachexia Pain of metastatic malignancy HTN HLD GERD Supplemental oxygen as needed Weaning BiPAP/Vapotherm as able, requirements remain high TeleICU following s/p Zosyn Doxycycline Steroids LTAC referral PT/OT DVT ppx: Lovenox Critical Care Critically Ill Patient Diagnosis/Problems Diagnosis/Problems (1) Sepsis due to pneumonia Status: Acute (2) Acute on chronic respiratory failure with hypoxia Status: Acute (3) Metastatic lung cancer (metastasis from lung to other site) Status: Acute Qualifiers: Laterality: unspecified laterality Qualified Codes: C34.90 - Malignant neoplasm of unspecified part of unspecified bronchus or lung (4) Pancytopenia due to chemotherapy Status: Acute (5) COPD (chronic obstructive pulmonary disease) Status: Chronic (6) Pulmonary cachexia due to COPD Status: Chronic (7) HTN (hypertension) Status: Chronic (8) GERD (gastroesophageal reflux disease) Status: Chronic (9) Pain of metastatic malignancy Status: Chronic (10) HLD (hyperlipidemia) Status: Chronic FARA CAMPOS MD Jan 29, 2023 17:47
[2023-01-29] MEDS: MELATONIN 3 MG TABLET PO SCH (21:23)
[2023-01-29] MEDS: ROSUVASTATIN 20 MG (CRESTOR) TABLET PO SCH (21:23)
[2023-01-29] MEDS: DexMEDEtomidine 250 ML DRIP 250 ML IV SCH (21:24)
[2023-01-29 22:12] VITALS: BP 123/75
[2023-01-30 01:56] VITALS: BP 139/82
[2023-01-30] MEDS: RT-ALBUTEROL HFA 8.5 GM INHALER IH SCH ×6 (01:56→22:20)
[2023-01-30 04:45] LABS: BASOPHILS % (AUTO) 0 % (0-10); EOSINOPHILS # (AUTO) 0.1 10^3/uL (0.0-0.3); EOSINOPHILS % (AUTO) 1 % (0-10); HEMATOCRIT 27 % (35-52); HEMOGLOBIN 8.4 g/dL (11.5-16.0); LYMPHOCYTES # (AUTO) 0.4 10^3/uL (1.0-4.0); LYMPHOCYTES % (AUTO) 5 % (12-44); MEAN CORPUSCULAR HEMOGLOBIN 29 pg (25-34); MEAN CORPUSCULAR HGB CONC 32 g/dL (32-36); MEAN CORPUSCULAR VOLUME 92 fL (80-99); MONOCYTES # (AUTO) 0.6 10^3/uL (0.0-1.0); MONOCYTES % (AUTO) 7 % (0-12); NEUTROPHILS # (AUTO) 6.9 10^3/uL (1.8-7.8); NEUTROPHILS % (AUTO) 83 % (42-75); PLATELET COUNT 152 10^3/uL (130-400); WHITE BLOOD COUNT 8.4 10^3/uL (4.3-11.0)
[2023-01-30 04:54] LABS: POTASSIUM 4.2 MMOL/L (3.6-5.0)
[2023-01-30 04:55] LABS: CALCIUM 8.6 MG/DL (8.5-10.1)
[2023-01-30 04:59] LABS: CREATININE SERUM 0.76 MG/DL (0.60-1.30)
[2023-01-30 05:02] LABS: MAGNESIUM 1.9 MG/DL (1.6-2.4)
[2023-01-30] MEDS: morphine ER 15 MG (MS CONTIN) TAB PO SCH ×3 (05:09→21:17)
[2023-01-30] MEDS: predniSONE 20 MG TAB PO SCH (05:09)
[2023-01-30] MEDS: POTASSIUM CL 10MEQ/50ML IVPB 50 ML IV SCH (06:03)
[2023-01-30] MEDS: CATHETER FLUSH 10 ML SYR IVP SCH ×3 (06:04→22:04)
[2023-01-30] MEDS: KCL 20 MEQ TAB (K-DUR) PO SCH (06:04)
[2023-01-30] MEDS: amLODIPine 5 MG (NORVASC) TAB PO SCH (08:30)
[2023-01-30] MEDS: NICOTINE 7 MG (NICODERM) PATCH TD SCH (08:30)
[2023-01-30] MEDS: lisINopril 20 MG (PRINIVIL) TABLET PO SCH (08:30)
[2023-01-30] MEDS: FOLIC ACID 1 MG TAB PO SCH (08:30)
[2023-01-30] MEDS: meTOprolol TARTRATE 50 MG (LOPRESSOR) TAB PO SCH ×2 (08:30→21:17)
[2023-01-30] MEDS: DOXYCYCLINE INJECTION 100 MG in NS (IVPB) 100 ML IV SCH (08:31)
--- NOTE | 2023-01-30 08:37 | Physical Therapy Progress Note ---
Therapy Progress Note Patient on Hold per RN due to decreased O2 reserve. Patient currently on Vapotherm 35%/100% with SAO2 80%. PT will resume tomorrow ELISSA Kang PT Jan 30, 2023 08:37
--- NOTE | 2023-01-30 09:17 | Occ Therapy Progress Note ---
Therapy Progress Note Patient on Hold per RN due to decreased O2 reserve. Patient currently on Vapotherm 35%/100% with SAO2 80%. OT will monitor and resume POC when appropriate TREVOR SILVERMAN OT Jan 30, 2023 09:17
[2023-01-30] MEDS: RT--FLUTICASONE/SALMETEROL 232-14 (AIRDUO RespiCLICK) IH SCH ×2 (09:39→18:02)
[2023-01-30] MEDS: UMECLIDINIUM BROMIDE (INCRUSE ELLIPTA) 7'S IH SCH (09:39)
[2023-01-30] MEDS: NICOTINE PATCH REMOVAL TP SCH (09:58)
--- NOTE | 2023-01-30 10:11 | Tele-ICU Progress Note ---
Subjective Date Seen by a Provider: Jan 30, 2023 Time Seen by a Provider: 10:10 Subjective/Events-last exam (Tele-ICU Physician , Progress Note ) Service provided via interactive audio and video telecommunications E-CARE system to a patient admitted to ICU bed in [facility]. Patient is seen today due to persistent need of ICU care Available chart/ vitals / labs / Images reviewed Video assessment done using teleICU camera, rest of exam as per RN Discussed with RN Events overnight : Afebrile hemodynamically stable Respiratory - I/O = pos Drips: LR 50 Pressors- no Hospital course: (01/17) 72yr old female admitted with pneumonia- transferrred to medical floow AM (01/20) transfered back for increased O2 demands. 01/22/ VT 20L 100& 01/23 - VT 25L 80 % 01/24 VT 30L 80% - desats with minimal movements , try BIPAP intermittent 08/23 , solumedrol 80 x1 and lasix 40 x1 01/29- VT 55% -- desats with movement 01/30- VT 40L 100 % , bipap 55% overnight , precedex 0.2 A/P Acute resp failure- VT 25L 80 %--> 40L 100 % with minimal movements - WORSENING - neg fluid status , last day of abx , will check CXR and consider IV sterpoids PNA -off IV vancomycin and Zosyn ( given immunocompr state ) - on doxy last day 01/30 Metastatic Lung Cancer -Diagnosed on 08/03/22 >Mets to bone and L adrenal gland Severe underlying emphysema - cont br - dilators -cont steroids po Anxiety - ativan prn 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 Discussed with RN to reach out if any questions or concerns A total of 20 minutes of critical care time was devoted to this patient today, required to treat and/or prevent further deterioration of critical care condition ( as above ) . I am remotely monitoring this patient from another state. I am unable to do the bedside exam, and history/physical and pertinent information is taken from other notes in the computer and bedside staff. Sepsis Event Evaluation Height, Weight, BMI Height: '" Weight: lbs. oz. kg; 18.41 BMI Method: Exam Exam Patient acknowledged, consented, and participated in this virtual visit which was conducted using real time audio/video Vital Signs Date Time Temp Pulse Resp B/P (MAP) Pulse Ox O2 Delivery O2 Flow Rate FiO2 01/30/23 10:00 83 17 114/63 (80) 94 Vapotherm 38.00 100.00 01/30/23 09:40 Vapotherm 38.00 100.00 01/30/23 09:40 90 Vapotherm 38.00 100 01/30/23 09:00 87 38 132/87 (102) 87 Vapotherm 40.00 100.00 01/30/23 08:40 Vapotherm 40.00 100.00 01/30/23 08:19 36.7 01/30/23 08:00 77 136/79 (98) 93 Vapotherm 35.00 85.00 01/30/23 07:01 77 01/30/23 07:00 78 120/72 (88) 94 Vapotherm 35.00 85.00 01/30/23 06:49 94 Vapotherm 35.00 85 01/30/23 06:00 77 22 130/75 (93) 95 Vapotherm 35.00 85.00 01/30/23 05:06 Vapotherm 35.00 85.00 01/30/23 05:00 75 24 134/80 (101) 93 NIV Bilevel 55.00 01/30/23 04:00 75 17 127/74 (92) 92 NIV Bilevel 55.00 01/30/23 04:00 93 NIV Bilevel 55 01/30/23 03:26 36.4 01/30/23 03:00 77 16 131/79 (93) 93 NIV Bilevel 55.00 01/30/23 02:00 79 17 124/79 (95) 94 NIV Bilevel 55.00 01/30/23 01:56 79 17 94 55.00 01/30/23 01:00 82 01/30/23 01:00 75 14 139/82 (100) 96 NIV Bilevel 55.00 01/30/23 00:00 83 18 128/77 (95) 95 NIV Bilevel 55.00 3/13/23 23:59 93 NIV Bilevel 55 01/29/23 23:47 37.4 01/29/23 23:00 90 16 126/75 (94) 95 NIV Bilevel 55.00 01/29/23 22:12 97 19 96 55.00 01/29/23 22:00 98 18 128/75 (96) 96 NIV Bilevel 55.00 01/29/23 21:30 NIV Bilevel 55.00 01/29/23 21:00 101 16 120/75 (89) 93 Vapotherm 35.00 85.00 01/29/23 20:00 36.8 Vapotherm 35.00 85.00 01/29/23 20:00 106 27 154/81 (100) 91 35.00 100.00 01/29/23 20:00 91 Vapotherm 35.00 85 01/29/23 19:00 103 24 98/67 (78) 93 Vapotherm 35.00 100.00 01/29/23 19:00 103 01/29/23 18:43 92 Vapotherm 35.00 85 01/29/23 18:00 95 17 122/76 (91) 94 Vapotherm 35.00 100.00 01/29/23 17:00 90 17 131/74 (93) 95 Vapotherm 35.00 100.00 01/29/23 16:01 87 Vapotherm 35.00 85 01/29/23 16:00 92 19 127/69 (88) 92 Vapotherm 35.00 100.00 01/29/23 15:56 37.0 01/29/23 15:00 96 18 125/74 (91) 89 Vapotherm 35.00 100.00 01/29/23 14:58 92 Vapotherm 35.00 85 01/29/23 14:00 92 18 116/81 (93) 89 Vapotherm 35.00 100.00 01/29/23 13:00 89 19 107/70 (82) 92 Vapotherm 35.00 100.00 01/29/23 12:43 87 Vapotherm 35.00 85 01/29/23 12:09 89 01/29/23 12:00 90 21 111/69 (83) 90 Vapotherm 35.00 100.00 01/29/23 11:43 36.6 01/29/23 11:00 76 18 122/92 (102) 96 Vapotherm 35.00 100.00 01/29/23 10:46 95 Vapotherm 35.00 85 I & O 01/30/23 07:00 Intake Total 975 ml Output Total 2095 ml Balance -1120 ml Height & Weight Height: '" Weight: lbs. oz. kg; 18.41 BMI Method: General Appearance: No Apparent Distress, Chronically ill, Thin HEENT: PERRL/EOMI, Pharynx Normal Neck: Normal Inspection, Supple Respiratory: No Accessory Muscle Use, No Respiratory Distress, Decreased Breath Sounds Cardiovascular: Regular Rate, Rhythm, No Murmur Capillary Refill: Less Than 3 Seconds Gastrointestinal: normal bowel sounds, non tender, soft Extremity: Normal Inspection, No Pedal Edema Neurologic/Psychiatric: Alert, Depressed Affect Skin: Normal Color, Warm/Dry Results Lab Laboratory Tests 01/29/23 04:00 01/30/23 04:35 Assessment/Plan Assessment/Plan 1 ARELI OROPEZA MD Jan 30, 2023 10:11
--- NOTE | 2023-01-30 10:22 | Diagnostic Imaging Report ---
EXAMINATION: Chest 1 view HISTORY: Hypoxia. COMPARISON: 01/24/2023. FINDINGS: Right-sided port is stable. Increasing patchy opacities are seen in the lung bases. These findings are superimposed on chronic appearing interstitial prominence throughout the lungs. Small right-sided pleural effusion is seen. No pneumothorax. Stable cardiac silhouette. IMPRESSION: 1. Increasing patchy opacities in the lung bases, suggestive of infection and/or atelectasis. 2. Small right-sided pleural effusion. Dictated by: Dictated on workstation # [id number]
[2023-01-30] MEDS: ENOXAPARIN INJECTION 30 MG/0.3 ML SYR SC SCH (12:01)
[2023-01-30] MEDS: methylPREDNISolone 125 MG (Solu-MEDROL) VIAL IVP SCH ×3 (12:01→23:45)
[2023-01-30] MEDS: PANTOPRAZOLE 40 MG (PROTONIX) TAB PO SCH (12:01)
[2023-01-30] MEDS: LORazepam 0.5 MG (ATIVAN) TABLET PO PRN ×2 (14:59→19:56)
--- NOTE | 2023-01-30 15:39 | Progress Note - Hospitalist ---
Subjective HPI/CC On Admission Date Seen by Provider: Jan 30, 2023 Time Seen by Provider: 08:45 Lyndsey Sosa is a 72 year old female with PMH metastatic lung cancer on chemotherapy, chemotherapy induced pancytopenia, COPD, HTN, HLD, GERD, cachexia, who presented with shortness of breath. She has been having fevers. She denies cough. She has been on outpatient antibiotics but was not improving. She denies chest pain. She denies abdominal pain. She denies nausea and vomiting. She last had chemotherapy about one week ago. Subjective/Events-last exam She is feeling about the same. She was able to eat a bit this morning. She is a bit anxious and concerned. Objective Exam Vital Signs Vital Signs Date Time Temp Pulse Resp B/P (MAP) Pulse Ox O2 Delivery O2 Flow Rate FiO2 01/30/23 15:29 36.4 01/30/23 15:03 24 NIV Bilevel 55.00 01/30/23 14:40 90 100 01/30/23 14:00 87 119/71 (87) Capillary Refill : Less Than 3 Seconds General Appearance: No Apparent Distress, Chronically ill, Cachetic Respiratory: No Respiratory Distress, Decreased Breath Sounds, Other (wearing Vapotherm) Cardiovascular: Regular Rate, Rhythm, No Murmur Gastrointestinal: Normal Bowel Sounds, Soft Extremity: Normal Inspection, No Pedal Edema Neurologic/Psychiatric: Alert, Normal Mood/Affect Skin: Normal Color, Warm/Dry Results/Procedures Lab Laboratory Tests 01/30/23 04:35 Patient resulted labs reviewed. Imaging: Reviewed Imaging Report Assessment/Plan Assessment and Plan Assess & Plan/Chief Complaint Sepsis due to pneumonia Acute on chronic respiratory failure with hypoxia Metastatic lung cancer Chemotherapy induced pancytopenia COPD Cachexia Pain of metastatic malignancy HTN HLD GERD Supplemental oxygen as needed Weaning BiPAP/Vapotherm as able TeleICU following s/p Zosyn Doxycycline Steroids LTAC referral PT/OT DVT ppx: Lovenox Critical Care Critically Ill Patient Diagnosis/Problems Diagnosis/Problems (1) Sepsis due to pneumonia Status: Acute (2) Acute on chronic respiratory failure with hypoxia Status: Acute (3) Metastatic lung cancer (metastasis from lung to other site) Status: Acute Qualifiers: Laterality: unspecified laterality Qualified Codes: C34.90 - Malignant neoplasm of unspecified part of unspecified bronchus or lung (4) Pancytopenia due to chemotherapy Status: Acute (5) COPD (chronic obstructive pulmonary disease) Status: Chronic (6) Pulmonary cachexia due to COPD Status: Chronic (7) HTN (hypertension) Status: Chronic (8) GERD (gastroesophageal reflux disease) Status: Chronic (9) Pain of metastatic malignancy Status: Chronic (10) HLD (hyperlipidemia) Status: Chronic FARA CAMPOS MD Jan 30, 2023 15:39
[2023-01-30 18:01] VITALS: BP 130/85
[2023-01-30] MEDS: ROSUVASTATIN 20 MG (CRESTOR) TABLET PO SCH (21:17)
[2023-01-30] MEDS: MELATONIN 3 MG TABLET PO SCH (21:17)
[2023-01-30 22:20] VITALS: BP 128/101
[2023-01-31 02:14] VITALS: BP 147/88
[2023-01-31] MEDS: RT-ALBUTEROL HFA 8.5 GM INHALER IH SCH ×6 (02:14→22:15)
[2023-01-31] MEDS: LORazepam 0.5 MG (ATIVAN) TABLET PO PRN ×5 (02:21→21:17)
[2023-01-31 04:30] LABS: BASOPHILS % (AUTO) 0 % (0-10); EOSINOPHILS % (AUTO) 0 % (0-10); HEMATOCRIT 26 % (35-52); HEMOGLOBIN 8.3 g/dL (11.5-16.0); LYMPHOCYTES # (AUTO) 0.6 10^3/uL (1.0-4.0); LYMPHOCYTES % (AUTO) 6 % (12-44); MEAN CORPUSCULAR HEMOGLOBIN 29 pg (25-34); MEAN CORPUSCULAR HGB CONC 32 g/dL (32-36); MEAN CORPUSCULAR VOLUME 91 fL (80-99); MEAN PLATELET VOLUME 9.6 fL (9.0-12.2); MONOCYTES # (AUTO) 0.2 10^3/uL (0.0-1.0); MONOCYTES % (AUTO) 2 % (0-12); NEUTROPHILS # (AUTO) 8.6 10^3/uL (1.8-7.8); NEUTROPHILS % (AUTO) 88 % (42-75); PLATELET COUNT 149 10^3/uL (130-400); WHITE BLOOD COUNT 9.8 10^3/uL (4.3-11.0)
[2023-01-31 04:39] LABS: POTASSIUM 4.7 MMOL/L (3.6-5.0)
[2023-01-31 04:40] LABS: CALCIUM 8.9 MG/DL (8.5-10.1)
[2023-01-31 04:44] LABS: CREATININE SERUM 0.7 MG/DL (0.60-1.30)
[2023-01-31 04:47] LABS: MAGNESIUM 1.7 MG/DL (1.6-2.4)
[2023-01-31] MEDS: KCL 20 MEQ TAB (K-DUR) PO SCH (04:47)
[2023-01-31] MEDS: POTASSIUM CL 10MEQ/50ML IVPB 50 ML IV SCH (04:47)
[2023-01-31 05:17] LABS: LYMPHOCYTES % (MANUAL) 5 %; MONOCYTES % (MANUAL) 2 %; NEUTROPHILS % (MANUAL) 93 %
[2023-01-31 05:18] LABS: ANISOCYTOSIS SLIGHT; ELLIPT/OVALOCYTES SLIGHT
[2023-01-31] MEDS: methylPREDNISolone 125 MG (Solu-MEDROL) VIAL IVP SCH ×3 (05:57→17:03)
[2023-01-31] MEDS: morphine ER 15 MG (MS CONTIN) TAB PO SCH ×3 (05:57→21:17)
[2023-01-31] MEDS: MAGNESIUM 1 GM/100 ML IVPB 100 ML IV SCH ×5 (06:07→14:19)
[2023-01-31] MEDS: CATHETER FLUSH 10 ML SYR IVP SCH ×3 (06:08→22:05)
[2023-01-31 07:04] VITALS: BP 141/84
[2023-01-31] MEDS: FOLIC ACID 1 MG TAB PO SCH (08:47)
[2023-01-31] MEDS: lisINopril 20 MG (PRINIVIL) TABLET PO SCH (08:47)
[2023-01-31] MEDS: amLODIPine 5 MG (NORVASC) TAB PO SCH (08:47)
[2023-01-31] MEDS: meTOprolol TARTRATE 50 MG (LOPRESSOR) TAB PO SCH ×2 (08:47→21:16)
[2023-01-31] MEDS: NICOTINE PATCH REMOVAL TP SCH (08:48)
[2023-01-31] MEDS: NICOTINE 7 MG (NICODERM) PATCH TD SCH (08:48)
--- NOTE | 2023-01-31 09:38 | Tele-ICU Progress Note ---
Subjective Date Seen by a Provider: Jan 31, 2023 Time Seen by a Provider: 09:38 Subjective/Events-last exam (Tele-ICU Physician , Progress Note ) Service provided via interactive audio and video telecommunications E-CARE system to a patient admitted to ICU bed in [facility]. Patient is seen today due to persistent need of ICU care Available chart/ vitals / labs / Images reviewed Video assessment done using teleICU camera, rest of exam as per RN Discussed with RN Events overnight : Afebrile hemodynamically stable Respiratory - I/O = pos Drips: LR 50 Pressors- no Hospital course: (01/17) 72yr old female admitted with pneumonia- transferrred to medical floow AM (01/20) transfered back for increased O2 demands. 01/22/ VT 20L 100& 01/23 - VT 25L 80 % 01/24 VT 30L 80% - desats with minimal movements , try BIPAP intermittent 08/23 , solumedrol 80 x1 and lasix 40 x1 01/29- VT 55% -- desats with movement 01/30- VT 40L 100 % , bipap 55% overnight , precedex 0.2, SOLUMEDROL 60 q 6 01/31 - VT 30 L 100 % ( 55% bipap last night ) precedex while on BIPAP A/P Acute resp failure- VT 25L 80 %--> 40L 100 % with minimal movements = - keep neg fluid status , last day of abx 01/30 p- - started on IV sterpoids SOLUMEDROL 60 q 6 01/30 PNA -off IV vancomycin and Zosyn ( given immunocompr state ) - last day 01/30 abg - OFF now Metastatic Lung Cancer -Diagnosed on 08/03/22 >Mets to bone and L adrenal gland Severe underlying emphysema - cont br - dilators -cont steroids IV Anxiety - ativan prn 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 Discussed with RN to reach out if any questions or concerns A total of 20 minutes of critical care time was devoted to this patient today, required to treat and/or prevent further deterioration of critical care condition ( as above ) . I am remotely monitoring this patient from another state. I am unable to do the bedside exam, and history/physical and pertinent information is taken from other notes in the computer and bedside staff. Sepsis Event Evaluation Height, Weight, BMI Height: '" Weight: lbs. oz. kg; 18.41 BMI Method: Exam Exam Patient acknowledged, consented, and participated in this virtual visit which was conducted using real time audio/video Vital Signs Date Time Temp Pulse Resp B/P (MAP) Pulse Ox O2 Delivery O2 Flow Rate FiO2 01/31/23 08:07 36.2 01/31/23 08:00 69 17 139/75 (96) 92 NIV Bilevel 55.00 01/31/23 07:41 69 01/31/23 07:04 72 17 93 55.00 01/31/23 07:00 70 13 141/84 (103) 93 NIV Bilevel 55.00 01/31/23 06:00 63 13 141/77 (98) 97 NIV Bilevel 55.00 01/31/23 05:00 70 13 142/84 (103) 96 NIV Bilevel 55.00 01/31/23 04:13 36.5 01/31/23 04:00 93 NIV Bilevel 55 01/31/23 04:00 68 12 134/75 (94) 95 NIV Bilevel 55.00 01/31/23 03:00 77 146/88 (113) 95 NIV Bilevel 55.00 01/31/23 02:14 81 29 92 55.00 01/31/23 02:00 76 147/88 (112) 95 NIV Bilevel 55.00 01/31/23 01:00 66 15 139/75 (115) 97 NIV Bilevel 55.00 01/31/23 01:00 66 01/31/23 00:00 73 19 122/70 (87) 96 NIV Bilevel 55.00 01/30/23 23:52 93 NIV Bilevel 55 01/30/23 23:52 36.2 01/30/23 23:00 81 23 134/69 (89) 97 NIV Bilevel 55.00 01/30/23 22:20 97 29 90 55.00 01/30/23 22:00 89 16 128/101 (110) 94 NIV Bilevel 55.00 01/30/23 21:00 95 26 137/85 (105) 93 NIV Bilevel 55.00 01/30/23 20:00 92 NIV Bilevel 55 01/30/23 20:00 96 20 136/99 (120) 91 NIV Bilevel 55.00 01/30/23 20:00 36.5 NIV Bilevel 55.00 01/30/23 19:00 80 19 134/78 (94) 96 NIV Bilevel 55.00 01/30/23 19:00 80 01/30/23 18:01 96 39 94 55.00 01/30/23 18:00 78 16 130/85 (100) 94 NIV Bilevel 55.00 01/30/23 17:00 82 15 126/80 (95) 95 NIV Bilevel 55.00 01/30/23 16:10 94 NIV Bilevel 55 01/30/23 16:00 96 24 115/84 (94) 90 NIV Bilevel 55.00 01/30/23 15:29 36.4 01/30/23 15:03 24 NIV Bilevel 55.00 01/30/23 15:00 101 18 135/82 (99) 93 Vapotherm 38.00 100.00 01/30/23 14:40 90 Vapotherm 37.00 100 01/30/23 14:00 87 17 119/71 (87) 91 Vapotherm 38.00 100.00 01/30/23 13:00 82 17 114/65 (81) 99 Vapotherm 38.00 100.00 01/30/23 12:45 86 01/30/23 12:17 37.0 01/30/23 12:15 92 Vapotherm 35.00 100 01/30/23 12:00 82 17 127/86 (100) 92 Vapotherm 38.00 100.00 01/30/23 11:00 79 17 114/80 (91) 99 Vapotherm 38.00 100.00 01/30/23 10:00 83 17 114/63 (80) 94 Vapotherm 38.00 100.00 01/30/23 09:40 Vapotherm 38.00 100.00 01/30/23 09:40 90 Vapotherm 38.00 100 I & O 01/31/23 07:00 Intake Total 1020 ml Output Total 2375 ml Balance -1355 ml Height & Weight Height: '" Weight: lbs. oz. kg; 18.41 BMI Method: General Appearance: No Apparent Distress, Chronically ill, Cachetic HEENT: PERRL/EOMI, Pharynx Normal Neck: Normal Inspection, Supple Respiratory: No Respiratory Distress, Decreased Breath Sounds, Other (wearing Vapotherm) Cardiovascular: Regular Rate, Rhythm, No Murmur Capillary Refill: Less Than 3 Seconds Gastrointestinal: normal bowel sounds, non tender, soft Extremity: Normal Inspection, No Pedal Edema Neurologic/Psychiatric: Alert, Normal Mood/Affect Skin: Normal Color, Warm/Dry Results Lab Laboratory Tests 01/30/23 04:35 01/31/23 04:20 Assessment/Plan Assessment/Plan 1 ARELI OROPEZA MD Jan 31, 2023 09:38
[2023-01-31] MEDS: ENOXAPARIN INJECTION 30 MG/0.3 ML SYR SC SCH (10:41)
[2023-01-31] MEDS: UMECLIDINIUM BROMIDE (INCRUSE ELLIPTA) 7'S IH SCH (10:54)
[2023-01-31] MEDS: RT--FLUTICASONE/SALMETEROL 232-14 (AIRDUO RespiCLICK) IH SCH ×2 (10:54→22:15)
[2023-01-31 10:55] VITALS: BP 130/84
[2023-01-31] MEDS: PANTOPRAZOLE 40 MG (PROTONIX) TAB PO SCH (11:57)
--- NOTE | 2023-01-31 12:54 | Progress Note - Hospitalist ---
Subjective HPI/CC On Admission Date Seen by Provider: Jan 31, 2023 Time Seen by Provider: 09:20 Lyndsey Sosa is a 72 year old female with PMH metastatic lung cancer on chemotherapy, chemotherapy induced pancytopenia, COPD, HTN, HLD, GERD, cachexia, who presented with shortness of breath. She has been having fevers. She denies cough. She has been on outpatient antibiotics but was not improving. She denies chest pain. She denies abdominal pain. She denies nausea and vomiting. She last had chemotherapy about one week ago. Subjective/Events-last exam She wore her BiPAP all night. She is feeling better this mornign. She is not short of breath. Her pain is well controlled. Objective Exam Vital Signs Vital Signs Date Time Temp Pulse Resp B/P (MAP) Pulse Ox O2 Delivery O2 Flow Rate FiO2 01/31/23 12:17 79 01/31/23 12:00 14 137/99 (112) 100 NIV Bilevel 55.00 01/31/23 11:36 36.3 01/31/23 04:00 55 Capillary Refill : Less Than 3 Seconds General Appearance: No Apparent Distress, Chronically ill, Cachetic Respiratory: No Respiratory Distress, Decreased Breath Sounds Cardiovascular: Regular Rate, Rhythm, No Murmur Gastrointestinal: Normal Bowel Sounds, Soft Extremity: Normal Inspection, No Pedal Edema Neurologic/Psychiatric: Alert, Normal Mood/Affect Skin: Normal Color, Warm/Dry Results/Procedures Lab Laboratory Tests 01/31/23 04:20 Patient resulted labs reviewed. Imaging: Reviewed Imaging Report Assessment/Plan Assessment and Plan Assess & Plan/Chief Complaint Acute on chronic respiratory failure with hypoxia Metastatic lung cancer COPD Cachexia Pain of metastatic malignancy HTN HLD GERD Supplemental oxygen as needed Weaning BiPAP/Vapotherm as able TeleICU following s/p Zosyn and Doxycycline Steroids LTAC referral PT/OT DVT ppx: Lovenox Chemotherapy induced pancytopenia, resolved Sepsis due to pneumonia, resolved Critical Care Critically Ill Patient Diagnosis/Problems Diagnosis/Problems (1) Sepsis due to pneumonia Status: Acute (2) Acute on chronic respiratory failure with hypoxia Status: Acute (3) Metastatic lung cancer (metastasis from lung to other site) Status: Acute Qualifiers: Laterality: unspecified laterality Qualified Codes: C34.90 - Malignant neoplasm of unspecified part of unspecified bronchus or lung (4) Pancytopenia due to chemotherapy Status: Acute (5) COPD (chronic obstructive pulmonary disease) Status: Chronic (6) Pulmonary cachexia due to COPD Status: Chronic (7) HTN (hypertension) Status: Chronic (8) GERD (gastroesophageal reflux disease) Status: Chronic (9) Pain of metastatic malignancy Status: Chronic (10) HLD (hyperlipidemia) Status: Chronic FARA CAMPOS MD Jan 31, 2023 12:54
--- NOTE | 2023-01-31 13:42 | Occ Therapy Progress Note ---
Therapy Progress Note Metastatic Lung Cancer -Diagnosed on 08/03/22 >Mets to bone and L adrenal gland, currently on BIPAP, OT spoke with patient and ICU nurse, AIMEE. Nurse reports BIPAP must remain on. Patient c.o back pain and RN has given pain relief medication, Patient reports No therapy today. Patient is instructed to rotate in bed frequently, move all f our extremities as much as possible when in bed, Patient declines sitting in bed, EOB and rolling w/ OT. OT will monitor patient and continue POC as appropriate. OT communicated following patient visit w/ Nurse, nurse agrees best interest of patient to hold therapy no charge TREVOR SILVERMAN OT Jan 31, 2023 13:42
--- NOTE | 2023-01-31 14:06 | Physical Therapy Progress Note ---
Therapy Progress Note Nursing informs that pt. Rx should be on hold, declined current medical status , SATURNINO Linares LEE A PTA Jan 31, 2023 14:06
[2023-01-31 14:52] VITALS: BP 110/71
[2023-01-31 18:48] VITALS: BP 120/78
[2023-01-31] MEDS: ROSUVASTATIN 20 MG (CRESTOR) TABLET PO SCH (21:16)
[2023-01-31] MEDS: MELATONIN 3 MG TABLET PO SCH (21:16)
[2023-01-31 22:16] VITALS: BP 120/78
[2023-02-01] MEDS: methylPREDNISolone 125 MG (Solu-MEDROL) VIAL IVP SCH ×5 (00:26→23:36)
[2023-02-01 02:45] VITALS: BP 134/82
[2023-02-01] MEDS: RT-ALBUTEROL HFA 8.5 GM INHALER IH SCH ×6 (02:45→21:23)
[2023-02-01 05:16] LABS: BASOPHILS % (AUTO) 0 % (0-10); EOSINOPHILS % (AUTO) 0 % (0-10); HEMATOCRIT 29 % (35-52); HEMOGLOBIN 8.9 g/dL (11.5-16.0); LYMPHOCYTES # (AUTO) 0.6 10^3/uL (1.0-4.0); LYMPHOCYTES % (AUTO) 4 % (12-44); MEAN CORPUSCULAR HEMOGLOBIN 29 pg (25-34); MEAN CORPUSCULAR HGB CONC 31 g/dL (32-36); MEAN CORPUSCULAR VOLUME 91 fL (80-99); MEAN PLATELET VOLUME 9.4 fL (9.0-12.2); MONOCYTES # (AUTO) 0.3 10^3/uL (0.0-1.0); MONOCYTES % (AUTO) 2 % (0-12); NEUTROPHILS # (AUTO) 13.1 10^3/uL (1.8-7.8); NEUTROPHILS % (AUTO) 92 % (42-75); PLATELET COUNT 182 10^3/uL (130-400); WHITE BLOOD COUNT 14.3 10^3/uL (4.3-11.0)
[2023-02-01 05:37] LABS: CALCIUM 8.9 MG/DL (8.5-10.1); CREATININE SERUM 0.77 MG/DL (0.60-1.30); MAGNESIUM 2.1 MG/DL (1.6-2.4); POTASSIUM 4.3 MMOL/L (3.6-5.0)
[2023-02-01] MEDS: POTASSIUM CL 10MEQ/50ML IVPB 50 ML IV SCH (05:50)
[2023-02-01] MEDS: MAGNESIUM 1 GM/100 ML IVPB 100 ML IV SCH (05:51)
[2023-02-01] MEDS: KCL 20 MEQ TAB (K-DUR) PO SCH (05:51)
[2023-02-01] MEDS: CATHETER FLUSH 10 ML SYR IVP SCH ×3 (05:51→21:53)
[2023-02-01] MEDS: morphine ER 15 MG (MS CONTIN) TAB PO SCH ×3 (05:59→20:50)
[2023-02-01 06:54] VITALS: BP 134/98
[2023-02-01] MEDS: meTOprolol TARTRATE 50 MG (LOPRESSOR) TAB PO SCH ×2 (08:08→20:50)
[2023-02-01] MEDS: NICOTINE 7 MG (NICODERM) PATCH TD SCH (08:08)
[2023-02-01] MEDS: NICOTINE PATCH REMOVAL TP SCH (08:08)
[2023-02-01] MEDS: FOLIC ACID 1 MG TAB PO SCH (08:08)
[2023-02-01] MEDS: lisINopril 20 MG (PRINIVIL) TABLET PO SCH (08:08)
[2023-02-01] MEDS: amLODIPine 5 MG (NORVASC) TAB PO SCH (08:08)
[2023-02-01] MEDS: LORazepam 0.5 MG (ATIVAN) TABLET PO PRN ×2 (08:56→17:41)
--- NOTE | 2023-02-01 09:13 | Physical Therapy Progress Note ---
Therapy Progress Note Patient on Hold due to increased pulmonary demand. PT will monitor patient's status and resume or reassess when patient improves. ELISSA VALLE PT Feb 01, 2023 09:13
--- NOTE | 2023-02-01 09:30 | Tele-ICU Progress Note ---
Subjective Date Seen by a Provider: Feb 01, 2023 Time Seen by a Provider: 09:30 Subjective/Events-last exam (Tele-ICU Physician , Progress Note ) Service provided via interactive audio and video telecommunications E-CARE system to a patient admitted to ICU bed in [facility]. Patient is seen today due to persistent need of ICU care Available chart/ vitals / labs / Images reviewed Video assessment done using teleICU camera, rest of exam as per RN Discussed with RN Events overnight : Afebrile hemodynamically stable Respiratory - I/O = pos Drips: LR 50 Pressors- no Hospital course: (01/17) 72yr old female admitted with pneumonia- transferrred to medical floow AM (01/20) transfered back for increased O2 demands. 01/22/ VT 20L 100& 01/23 - VT 25L 80 % 01/24 VT 30L 80% - desats with minimal movements , try BIPAP intermittent 08/23 , solumedrol 80 x1 and lasix 40 x1 01/29- VT 55% -- desats with movement 01/30- VT 40L 100 % , bipap 55% overnight , precedex 0.2, SOLUMEDROL 60 q 6 01/31 - VT 30 L 100 % ( 55% bipap last night ) precedex while on BIPAP A/P Acute resp failure- VT 25L 80 %--> 40L 100 % with minimal movements = - keep neg fluid status , last day of abx 01/30 p- - started on IV steroids SOLUMEDROL 60 q 6 01/30 TO DECREASE SOON PNA -off IV vancomycin and Zosyn ( given immunocompr state ) - last day 01/30 abg - OFF now Metastatic Lung Cancer -Diagnosed on 08/03/22 >Mets to bone and L adrenal gland Severe underlying emphysema - cont br - dilators -cont steroids IV Anxiety - ativan prn 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 Discussed with RN to reach out if any questions or concerns A total of 20 minutes of critical care time was devoted to this patient today, required to treat and/or prevent further deterioration of critical care condition ( as above ) . I am remotely monitoring this patient from another state. I am unable to do the bedside exam, and history/physical and pertinent information is taken from other notes in the computer and bedside staff. Sepsis Event Evaluation Height, Weight, BMI Height: '" Weight: lbs. oz. kg; 18.41 BMI Method: Exam Exam Patient acknowledged, consented, and participated in this virtual visit which was conducted using real time audio/video Vital Signs Date Time Temp Pulse Resp B/P (MAP) Pulse Ox O2 Delivery O2 Flow Rate FiO2 02/01/23 08:00 98 NIV Bilevel 55 02/01/23 08:00 36.5 02/01/23 06:54 65 22 99 55.00 02/01/23 06:00 63 14 134/98 (110) 100 NIV Bilevel 55.00 02/01/23 05:00 64 13 142/80 (100) 99 NIV Bilevel 55.00 02/01/23 04:00 98 NIV Bilevel 55 02/01/23 04:00 69 13 141/78 (99) 100 NIV Bilevel 55.00 02/01/23 03:00 67 14 137/81 (99) 99 NIV Bilevel 55.00 02/01/23 02:45 68 20 100 55.00 02/01/23 02:00 69 17 134/82 (99) 100 NIV Bilevel 55.00 02/01/23 01:00 70 02/01/23 01:00 70 16 133/73 (93) 100 NIV Bilevel 55.00 02/01/23 00:00 73 16 124/70 (88) 98 NIV Bilevel 55.00 01/31/23 23:59 94 NIV Bilevel 55 01/31/23 23:00 77 17 119/69 (86) 96 NIV Bilevel 55.00 01/31/23 22:16 74 20 97 55.00 01/31/23 22:00 83 19 135/77 (96) 96 NIV Bilevel 55.00 01/31/23 21:00 84 24 138/89 (105) 96 NIV Bilevel 55.00 01/31/23 20:00 93 NIV Bilevel 55 01/31/23 20:00 69 21 125/76 (92) 93 NIV Bilevel 55.00 01/31/23 20:00 36.6 01/31/23 19:00 72 16 126/75 (92) 98 NIV Bilevel 55.00 01/31/23 19:00 73 01/31/23 18:48 74 20 96 55.00 01/31/23 18:00 70 17 120/78 (92) 97 NIV Bilevel 55.00 01/31/23 17:25 37.2 01/31/23 17:00 76 26 115/74 (88) 95 NIV Bilevel 55.00 01/31/23 17:00 38.3 01/31/23 16:37 36.9 01/31/23 16:00 80 19 110/65 (80) 92 NIV Bilevel 55.00 01/31/23 15:36 98 NIV Bilevel 55 01/31/23 15:00 85 28 110/79 (89) 92 NIV Bilevel 55.00 01/31/23 14:52 75 17 95 55.00 01/31/23 14:00 84 20 110/71 (84) 92 NIV Bilevel 55.00 01/31/23 13:00 82 19 128/90 (103) 92 NIV Bilevel 55.00 01/31/23 12:17 79 01/31/23 12:00 75 14 137/99 (112) 100 NIV Bilevel 55.00 01/31/23 12:00 93 Vapotherm 30.00 100 01/31/23 11:36 36.3 01/31/23 11:00 71 13 136/78 (97) 98 NIV Bilevel 55.00 01/31/23 10:55 67 17 99 55.00 01/31/23 10:00 70 17 130/84 (99) 99 NIV Bilevel 55.00 I & O 02/01/23 07:00 Intake Total 1525 ml Output Total 1535 ml Balance -10 ml Height & Weight Height: '" Weight: lbs. oz. kg; 18.41 BMI Method: General Appearance: No Apparent Distress, Chronically ill, Cachetic HEENT: PERRL/EOMI, Pharynx Normal Neck: Normal Inspection, Supple Respiratory: No Respiratory Distress, Decreased Breath Sounds Cardiovascular: Regular Rate, Rhythm, No Murmur Capillary Refill: Less Than 3 Seconds Gastrointestinal: normal bowel sounds, non tender, soft Extremity: Normal Inspection, No Pedal Edema Neurologic/Psychiatric: Alert, Normal Mood/Affect Skin: Normal Color, Warm/Dry Results Lab Laboratory Tests 01/31/23 04:20 02/01/23 05:10 Assessment/Plan Assessment/Plan 1 ARELI OROPEZA MD Feb 01, 2023 09:30
[2023-02-01] MEDS: UMECLIDINIUM BROMIDE (INCRUSE ELLIPTA) 7'S IH SCH (10:11)
[2023-02-01] MEDS: RT--FLUTICASONE/SALMETEROL 232-14 (AIRDUO RespiCLICK) IH SCH ×2 (10:11→21:23)
[2023-02-01 10:12] VITALS: BP 139/77
[2023-02-01] MEDS: ENOXAPARIN INJECTION 30 MG/0.3 ML SYR SC SCH (11:33)
[2023-02-01] MEDS: PANTOPRAZOLE 40 MG (PROTONIX) TAB PO SCH (11:33)
--- NOTE | 2023-02-01 12:04 | Occ Therapy Progress Note ---
Therapy Progress Note Patient on Hold due to increased pulmonary demand. OT will monitor patient's status and reassess when patient improves TREVOR SILVERMAN OT Feb 01, 2023 12:04
--- NOTE | 2023-02-01 14:02 | Progress Note - Hospitalist ---
Subjective HPI/CC On Admission Date Seen by Provider: Feb 01, 2023 Time Seen by Provider: 07:50 Lyndsey Sosa is a 72 year old female with PMH metastatic lung cancer on chemotherapy, chemotherapy induced pancytopenia, COPD, HTN, HLD, GERD, cachexia, who presented with shortness of breath. She has been having fevers. She denies cough. She has been on outpatient antibiotics but was not improving. She denies chest pain. She denies abdominal pain. She denies nausea and vomiting. She last had chemotherapy about one week ago. Subjective/Events-last exam She is feeling about the same. She denies shortness of breath. She wants to take the BiPAP off to eat. Objective Exam Vital Signs Vital Signs Date Time Temp Pulse Resp B/P (MAP) Pulse Ox O2 Delivery O2 Flow Rate FiO2 02/01/23 12:20 37.1 02/01/23 11:41 99 Vapotherm 30.00 70 02/01/23 11:00 68 16 128/75 (92) Capillary Refill : Less Than 3 Seconds General Appearance: No Apparent Distress, Chronically ill, Cachetic Respiratory: No Respiratory Distress, Decreased Breath Sounds Cardiovascular: Regular Rate, Rhythm, No Murmur Gastrointestinal: Normal Bowel Sounds, Soft Extremity: Normal Inspection, No Pedal Edema Neurologic/Psychiatric: Alert, No Motor/Sensory Deficits Skin: Normal Color, Warm/Dry Results/Procedures Lab Laboratory Tests 02/01/23 05:10 Patient resulted labs reviewed. Imaging: Reviewed Imaging Report Assessment/Plan Assessment and Plan Assess & Plan/Chief Complaint Acute on chronic respiratory failure with hypoxia Metastatic lung cancer COPD Cachexia Pain of metastatic malignancy HTN HLD GERD Supplemental oxygen as needed Trial off BiPAP TeleICU following s/p Zosyn and Doxycycline Steroids LTAC denied, will wean BiPAP and resubmit PT/OT DVT ppx: Lovenox Chemotherapy induced pancytopenia, resolved Sepsis due to pneumonia, resolved Critical Care Critically Ill Patient Diagnosis/Problems Diagnosis/Problems (1) Sepsis due to pneumonia Status: Acute (2) Acute on chronic respiratory failure with hypoxia Status: Acute (3) Metastatic lung cancer (metastasis from lung to other site) Status: Acute Qualifiers: Laterality: unspecified laterality Qualified Codes: C34.90 - Malignant neoplasm of unspecified part of unspecified bronchus or lung (4) Pancytopenia due to chemotherapy Status: Acute (5) COPD (chronic obstructive pulmonary disease) Status: Chronic (6) Pulmonary cachexia due to COPD Status: Chronic (7) HTN (hypertension) Status: Chronic (8) GERD (gastroesophageal reflux disease) Status: Chronic (9) Pain of metastatic malignancy Status: Chronic (10) HLD (hyperlipidemia) Status: Chronic FARA CAMPOS MD Feb 01, 2023 14:02
[2023-02-01] MEDS: MELATONIN 3 MG TABLET PO SCH (20:50)
[2023-02-01] MEDS: ROSUVASTATIN 20 MG (CRESTOR) TABLET PO SCH (20:50)
[2023-02-02] MEDS: RT-ALBUTEROL HFA 8.5 GM INHALER IH SCH ×5 (02:42→19:06)
[2023-02-02 03:15] LABS: BASOPHILS % (AUTO) 0 % (0-10); EOSINOPHILS % (AUTO) 0 % (0-10); HEMATOCRIT 29 % (35-52); HEMOGLOBIN 9.1 g/dL (11.5-16.0); LYMPHOCYTES # (AUTO) 0.5 10^3/uL (1.0-4.0); LYMPHOCYTES % (AUTO) 4 % (12-44); MEAN CORPUSCULAR HEMOGLOBIN 29 pg (25-34); MEAN CORPUSCULAR HGB CONC 32 g/dL (32-36); MEAN CORPUSCULAR VOLUME 91 fL (80-99); MEAN PLATELET VOLUME 9.8 fL (9.0-12.2); MONOCYTES # (AUTO) 0.3 10^3/uL (0.0-1.0); MONOCYTES % (AUTO) 2 % (0-12); NEUTROPHILS # (AUTO) 12.2 10^3/uL (1.8-7.8); NEUTROPHILS % (AUTO) 92 % (42-75); PLATELET COUNT 172 10^3/uL (130-400); WHITE BLOOD COUNT 13.2 10^3/uL (4.3-11.0)
[2023-02-02 03:23] LABS: POTASSIUM 3.8 MMOL/L (3.6-5.0)
[2023-02-02 03:24] LABS: CALCIUM 8.5 MG/DL (8.5-10.1)
[2023-02-02 03:29] LABS: CREATININE SERUM 0.88 MG/DL (0.60-1.30)
[2023-02-02 03:31] LABS: MAGNESIUM 1.9 MG/DL (1.6-2.4)
[2023-02-02] MEDS: MAGNESIUM 1 GM/100 ML IVPB 100 ML IV SCH ×3 (03:47→05:05)
[2023-02-02] MEDS: KCL 20 MEQ TAB (K-DUR) PO SCH (03:47)
[2023-02-02] MEDS: POTASSIUM CL 10MEQ/50ML IVPB 50 ML IV SCH (03:48)
[2023-02-02] MEDS ORDERED: KCL 20 MEQ TAB (K-DUR) PO ONE (04:00)
[2023-02-02] MEDS: methylPREDNISolone 125 MG (Solu-MEDROL) VIAL IVP SCH ×4 (05:04→23:28)
[2023-02-02] MEDS: morphine ER 15 MG (MS CONTIN) TAB PO SCH ×3 (05:04→23:28)
[2023-02-02] MEDS: CATHETER FLUSH 10 ML SYR IVP SCH ×3 (05:05→23:29)
--- NOTE | 2023-02-02 08:05 | Tele-ICU Progress Note ---
Subjective Date Seen by a Provider: Feb 02, 2023 Time Seen by a Provider: 08:00 Subjective/Events-last exam (Tele-ICU Physician , Progress Note ) Service provided via interactive audio and video telecommunications E-CARE system to a patient admitted to ICU bed in [facility]. Patient is seen today due to persistent need of ICU care Available chart/ vitals / labs / Images reviewed Video assessment done using teleICU camera, rest of exam as per RN Discussed with RN Events overnight : Afebrile hemodynamically stable Respiratory - I/O = pos Drips: LR 50 Pressors- no Hospital course: (01/17) 72yr old female admitted with pneumonia- transferrred to medical floow AM (01/20) transfered back for increased O2 demands. 01/22/ VT 20L 100& 01/23 - VT 25L 80 % 01/24 VT 30L 80% - desats with minimal movements , try BIPAP intermittent 08/23 , solumedrol 80 x1 and lasix 40 x1 01/29- VT 55% -- desats with movement 01/30- VT 40L 100 % , bipap 55% overnight , precedex 0.2, SOLUMEDROL 60 q 6 01/31 - VT 30 L 100 % ( 55% bipap last night ) precedex while on BIPAP Today on vapotherm 25 lpm, FiO2 55%, SpO2 in mid 90's Was on IV Vanco and IV Zosyn WBC is doewn to 13.2 Hx of metastatic lung Ca with mets to bone and adrenal, Pt is DNR Sepsis Event Evaluation Height, Weight, BMI Height: '" Weight: lbs. oz. kg; 18.55 BMI Method: Exam Exam Patient acknowledged, consented, and participated in this virtual visit which was conducted using real time audio/video Vital Signs Date Time Temp Pulse Resp B/P (MAP) Pulse Ox O2 Delivery O2 Flow Rate FiO2 02/02/23 07:00 62 02/02/23 04:00 37.0 96 Vapotherm 30.00 70.00 02/02/23 04:00 68 23 136/78 (97) 100 Vapotherm 30.00 70.00 02/02/23 03:50 97 Vapotherm 30.00 70 02/02/23 03:00 69 17 140/78 (98) 100 Vapotherm 30.00 70.00 02/02/23 02:00 69 13 131/69 (89) 100 Vapotherm 30.00 70.00 02/02/23 01:00 65 12 150/85 (106) 100 Vapotherm 30.00 70.00 02/02/23 01:00 80 02/02/23 00:00 36.6 Vapotherm 30.00 70.00 02/02/23 00:00 76 137/73 (94) 100 Vapotherm 30.00 70.00 02/01/23 23:44 93 Vapotherm 30.00 70 02/01/23 23:00 90 118/70 (86) 100 Vapotherm 30.00 70.00 02/01/23 22:00 93 36 122/68 (86) 98 Vapotherm 30.00 70.00 02/01/23 21:24 96 Vapotherm 40.00 70 02/01/23 21:00 101 36 140/83 (102) 98 Vapotherm 30.00 70.00 02/01/23 20:00 101 19 131/79 (96) 93 Vapotherm 30.00 70.00 02/01/23 20:00 95 Vapotherm 30.00 70 02/01/23 20:00 36.8 95 Vapotherm 30.00 70.00 02/01/23 19:00 100 02/01/23 19:00 98 15 118/68 (85) 92 Vapotherm 30.00 80.00 02/01/23 18:32 94 Vapotherm 40.00 70 02/01/23 18:00 96 30 122/67 (85) 92 Vapotherm 30.00 80.00 02/01/23 17:00 80 21 116/77 (90) 96 Vapotherm 30.00 80.00 02/01/23 16:00 89 18 126/72 (90) 91 Vapotherm 30.00 80.00 02/01/23 15:53 91 Vapotherm 30.00 70 02/01/23 15:09 90 Vapotherm 40.00 70 02/01/23 15:00 74 12 128/67 (87) 93 Vapotherm 30.00 80.00 02/01/23 14:00 78 16 129/77 (94) 93 Vapotherm 30.00 80.00 02/01/23 13:00 78 3/16/23 13:00 73 18 139/93 (108) 94 Vapotherm 30.00 80.00 02/01/23 12:20 37.1 02/01/23 12:00 73 17 145/90 (108) 95 Vapotherm 30.00 80.00 02/01/23 11:41 99 Vapotherm 30.00 70 02/01/23 11:40 Vapotherm 30.00 70.00 02/01/23 11:00 68 16 128/75 (92) 96 Vapotherm 30.00 80.00 02/01/23 10:39 100 Vapotherm 30.00 80.00 02/01/23 10:35 Vapotherm 30.00 90.00 02/01/23 10:12 61 23 100 55.00 02/01/23 10:00 67 23 139/77 (97) 97 NIV Bilevel 55.00 02/01/23 09:00 74 25 147/85 (105) 89 NIV Bilevel 55.00 02/01/23 08:00 98 NIV Bilevel 55 02/01/23 08:00 82 22 160/103 (122) 99 NIV Bilevel 55.00 02/01/23 08:00 36.5 I & O 02/02/23 07:00 Intake Total 2180 ml Output Total 1675 ml Balance 505 ml Height & Weight Height: '" Weight: lbs. oz. kg; 18.55 BMI Method: General Appearance: No Apparent Distress, Chronically ill, Cachetic HEENT: PERRL/EOMI, Pharynx Normal Neck: Normal Inspection, Supple Respiratory: No Respiratory Distress, Decreased Breath Sounds, Rhonci Cardiovascular: Regular Rate, Rhythm, No Murmur Capillary Refill: Less Than 3 Seconds Gastrointestinal: normal bowel sounds, non tender, soft Extremity: Normal Inspection, No Pedal Edema Neurologic/Psychiatric: Alert, Oriented x3, No Motor/Sensory Deficits Skin: Normal Color, Warm/Dry Results Lab Laboratory Tests 02/01/23 05:10 02/02/23 03:02 Assessment/Plan Assessment/Plan WIll continue on Medrol, hi flow oxygen, Pt DNR/DNI, will go to general medical floor, Critical Care: Critically Ill Patient Time spent with patient (mins): 25 MIRANDA WHITNEY MD Feb 02, 2023 08:05
--- NOTE | 2023-02-02 08:17 | Physical Therapy Progress Note ---
Therapy Progress Note Patient declined PT due to wanting to sleep and be left alone. RN notified. 1 ref ELISSA VALLE PT Feb 02, 2023 08:17
[2023-02-02] MEDS: NICOTINE 7 MG (NICODERM) PATCH TD SCH (08:21)
[2023-02-02] MEDS: amLODIPine 5 MG (NORVASC) TAB PO SCH (08:21)
[2023-02-02] MEDS: meTOprolol TARTRATE 50 MG (LOPRESSOR) TAB PO SCH ×2 (08:21→20:04)
[2023-02-02] MEDS: lisINopril 20 MG (PRINIVIL) TABLET PO SCH (08:21)
[2023-02-02] MEDS: FOLIC ACID 1 MG TAB PO SCH (08:21)
[2023-02-02] MEDS: NICOTINE PATCH REMOVAL TP SCH (08:22)
[2023-02-02] MEDS: ENOXAPARIN INJECTION 30 MG/0.3 ML SYR SC SCH (10:57)
[2023-02-02] MEDS: LORazepam 0.5 MG (ATIVAN) TABLET PO PRN ×3 (10:57→20:04)
[2023-02-02] MEDS: RT--FLUTICASONE/SALMETEROL 232-14 (AIRDUO RespiCLICK) IH SCH (11:15)
[2023-02-02] MEDS: UMECLIDINIUM BROMIDE (INCRUSE ELLIPTA) 7'S IH SCH (11:16)
[2023-02-02] MEDS: PANTOPRAZOLE 40 MG (PROTONIX) TAB PO SCH (12:18)
--- NOTE | 2023-02-02 12:19 | Progress Note - Hospitalist ---
Subjective HPI/CC On Admission Date Seen by Provider: Feb 02, 2023 Time Seen by Provider: 09:45 Lyndsey Sosa is a 72 year old female with PMH metastatic lung cancer on chemotherapy, chemotherapy induced pancytopenia, COPD, HTN, HLD, GERD, cachexia, who presented with shortness of breath. She has been having fevers. She denies cough. She has been on outpatient antibiotics but was not improving. She denies chest pain. She denies abdominal pain. She denies nausea and vomiting. She last had chemotherapy about one week ago. Subjective/Events-last exam She is doing well. She is on Vapotherm. She is requiring less oxygen. She denies shortness of breath. Objective Exam Vital Signs Vital Signs Date Time Temp Pulse Resp B/P (MAP) Pulse Ox O2 Delivery O2 Flow Rate FiO2 02/02/23 12:00 81 18 126/76 (96) 91 Vapotherm 25.00 55.00 02/02/23 10:50 55 02/02/23 08:00 36.5 Capillary Refill : Less Than 3 Seconds General Appearance: No Apparent Distress, Chronically ill, Cachetic Respiratory: No Respiratory Distress, Decreased Breath Sounds Cardiovascular: Regular Rate, Rhythm, No Murmur Gastrointestinal: Normal Bowel Sounds, Soft Extremity: Normal Inspection, No Pedal Edema Neurologic/Psychiatric: Alert, No Motor/Sensory Deficits Results/Procedures Lab Laboratory Tests 02/02/23 03:02 Patient resulted labs reviewed. Imaging: Reviewed Imaging Report Assessment/Plan Assessment and Plan Assess & Plan/Chief Complaint Acute on chronic respiratory failure with hypoxia Metastatic lung cancer COPD Cachexia Pain of metastatic malignancy HTN HLD GERD Supplemental oxygen as needed Weaning Vapotherm as tolerated TeleICU following s/p Zosyn and Doxycycline Steroids LTAC pending PT/OT DVT ppx: Lovenox Chemotherapy induced pancytopenia, resolved Sepsis due to pneumonia, resolved Critical Care Critically Ill Patient Diagnosis/Problems Diagnosis/Problems (1) Sepsis due to pneumonia Status: Acute (2) Acute on chronic respiratory failure with hypoxia Status: Acute (3) Metastatic lung cancer (metastasis from lung to other site) Status: Acute Qualifiers: Laterality: unspecified laterality Qualified Codes: C34.90 - Malignant neoplasm of unspecified part of unspecified bronchus or lung (4) Pancytopenia due to chemotherapy Status: Acute (5) COPD (chronic obstructive pulmonary disease) Status: Chronic (6) Pulmonary cachexia due to COPD Status: Chronic (7) HTN (hypertension) Status: Chronic (8) GERD (gastroesophageal reflux disease) Status: Chronic (9) Pain of metastatic malignancy Status: Chronic (10) HLD (hyperlipidemia) Status: Chronic FARA CAMPOS MD Feb 02, 2023 12:19
--- NOTE | 2023-02-02 15:44 | Occ Therapy Progress Note ---
Therapy Progress Note Patient refused therapy this date, OT to continue POC Sunday02/05/23 TREVOR SILVERMAN OT Feb 02, 2023 15:44
[2023-02-02 19:01] VITALS: BP 112/70
[2023-02-02] MEDS: ROSUVASTATIN 20 MG (CRESTOR) TABLET PO SCH (20:04)
[2023-02-02] MEDS: MELATONIN 3 MG TABLET PO SCH (20:05)
[2023-02-02 23:16] VITALS: BP 112/68
[2023-02-03] VITALS (7 sets, daily range): BP systolic 104–153; BP diastolic 62–83
[2023-02-03 05:17] LABS: BASOPHILS % (AUTO) 0 % (0-10); EOSINOPHILS % (AUTO) 0 % (0-10); HEMATOCRIT 28 % (35-52); HEMOGLOBIN 8.7 g/dL (11.5-16.0); LYMPHOCYTES # (AUTO) 0.4 10^3/uL (1.0-4.0); LYMPHOCYTES % (AUTO) 4 % (12-44); MEAN CORPUSCULAR HEMOGLOBIN 29 pg (25-34); MEAN CORPUSCULAR HGB CONC 31 g/dL (32-36); MEAN CORPUSCULAR VOLUME 92 fL (80-99); MEAN PLATELET VOLUME 9.5 fL (9.0-12.2); MONOCYTES # (AUTO) 0.2 10^3/uL (0.0-1.0); MONOCYTES % (AUTO) 2 % (0-12); NEUTROPHILS # (AUTO) 10.3 10^3/uL (1.8-7.8); NEUTROPHILS % (AUTO) 93 % (42-75); PLATELET COUNT 151 10^3/uL (130-400); WHITE BLOOD COUNT 11.1 10^3/uL (4.3-11.0)
[2023-02-03 05:28] LABS: CALCIUM 7.9 MG/DL (8.5-10.1); CREATININE SERUM 0.75 MG/DL (0.60-1.30); MAGNESIUM 1.9 MG/DL (1.6-2.4); POTASSIUM 4.5 MMOL/L (3.6-5.0)
[2023-02-03] MEDS: POTASSIUM CL 10MEQ/50ML IVPB 50 ML IV SCH (05:36)
[2023-02-03] MEDS: KCL 20 MEQ TAB (K-DUR) PO SCH (05:38)
[2023-02-03] MEDS: MAGNESIUM 1 GM/100 ML IVPB 100 ML IV SCH ×3 (05:38→08:34)
[2023-02-03] MEDS: morphine ER 15 MG (MS CONTIN) TAB PO SCH ×3 (06:15→23:20)
[2023-02-03] MEDS: CATHETER FLUSH 10 ML SYR IVP SCH ×3 (06:15→21:02)
[2023-02-03] MEDS: methylPREDNISolone 125 MG (Solu-MEDROL) VIAL IVP SCH ×3 (06:15→21:01)
[2023-02-03] MEDS: RT-ALBUTEROL HFA 8.5 GM INHALER IH SCH ×5 (07:26→22:28)
[2023-02-03] MEDS: lisINopril 20 MG (PRINIVIL) TABLET PO SCH (08:35)
[2023-02-03] MEDS: NICOTINE 7 MG (NICODERM) PATCH TD SCH (08:35)
[2023-02-03] MEDS: LORazepam 0.5 MG (ATIVAN) TABLET PO PRN ×2 (08:35→21:01)
[2023-02-03] MEDS: amLODIPine 5 MG (NORVASC) TAB PO SCH (08:35)
[2023-02-03] MEDS: meTOprolol TARTRATE 50 MG (LOPRESSOR) TAB PO SCH ×2 (08:35→21:01)
[2023-02-03] MEDS: NICOTINE PATCH REMOVAL TP SCH (08:36)
--- NOTE | 2023-02-03 08:57 | Physical Therapy Progress Note ---
Therapy Progress Note Patient refused PT on this date. RN notified. 1 ref ELISSA VALLE PT Feb 03, 2023 08:56
[2023-02-03] MEDS: FOLIC ACID 1 MG TAB PO SCH (09:17)
[2023-02-03] MEDS: ENOXAPARIN INJECTION 30 MG/0.3 ML SYR SC SCH (11:44)
[2023-02-03] MEDS: PANTOPRAZOLE 40 MG (PROTONIX) TAB PO SCH (11:44)
--- NOTE | 2023-02-03 13:07 | Progress Note - Hospitalist ---
Subjective HPI/CC On Admission Date Seen by Provider: Feb 03, 2023 Time Seen by Provider: 10:45 Lyndsey Sosa is a 72 year old female with PMH metastatic lung cancer on chemotherapy, chemotherapy induced pancytopenia, COPD, HTN, HLD, GERD, cachexia, who presented with shortness of breath. She has been having fevers. She denies cough. She has been on outpatient antibiotics but was not improving. She denies chest pain. She denies abdominal pain. She denies nausea and vomiting. She last had chemotherapy about one week ago. Subjective/Events-last exam She is doing better. She denies shortness of breath. She has been eating and drinking well. She has no other complaints. Objective Exam Vital Signs Vital Signs Date Time Temp Pulse Resp B/P (MAP) Pulse Ox O2 Delivery O2 Flow Rate FiO2 02/03/23 11:50 36.5 77 16 120/70 (87) 95 Vapotherm 55.00 25.00 02/03/23 10:19 55 Capillary Refill : Less Than 3 Seconds General Appearance: No Apparent Distress, Chronically ill, Cachetic Respiratory: No Respiratory Distress, Decreased Breath Sounds Cardiovascular: Regular Rate, Rhythm, No Murmur Gastrointestinal: Normal Bowel Sounds, Soft Extremity: Normal Inspection, No Pedal Edema Neurologic/Psychiatric: Alert, Normal Mood/Affect Skin: Normal Color, Warm/Dry Results/Procedures Lab Laboratory Tests 02/03/23 04:38 Patient resulted labs reviewed. Imaging: Reviewed Imaging Report Assessment/Plan Assessment and Plan Assess & Plan/Chief Complaint Acute on chronic respiratory failure with hypoxia Metastatic lung cancer COPD Cachexia Pain of metastatic malignancy HTN HLD GERD Supplemental oxygen as needed Weaning Vapotherm as tolerated TeleICU following s/p Zosyn and Doxycycline Steroids LTAC pending PT/OT DVT ppx: Lovenox Chemotherapy induced pancytopenia, resolved Sepsis due to pneumonia, resolved Critical Care Critically Ill Patient Diagnosis/Problems Diagnosis/Problems (1) Sepsis due to pneumonia Status: Acute (2) Acute on chronic respiratory failure with hypoxia Status: Acute (3) Metastatic lung cancer (metastasis from lung to other site) Status: Acute Qualifiers: Laterality: unspecified laterality Qualified Codes: C34.90 - Malignant neoplasm of unspecified part of unspecified bronchus or lung (4) Pancytopenia due to chemotherapy Status: Acute (5) COPD (chronic obstructive pulmonary disease) Status: Chronic (6) Pulmonary cachexia due to COPD Status: Chronic (7) HTN (hypertension) Status: Chronic (8) GERD (gastroesophageal reflux disease) Status: Chronic (9) Pain of metastatic malignancy Status: Chronic (10) HLD (hyperlipidemia) Status: Chronic FARA CAMPOS MD Feb 03, 2023 13:07
[2023-02-03] MEDS: MELATONIN 3 MG TABLET PO SCH (21:01)
[2023-02-03] MEDS: ROSUVASTATIN 20 MG (CRESTOR) TABLET PO SCH (21:01)
[2023-02-04] MEDS: RT-ALBUTEROL HFA 8.5 GM INHALER IH SCH ×6 (02:40→22:48)
[2023-02-04 03:42] VITALS: BP 146/76
[2023-02-04] MEDS: methylPREDNISolone 125 MG (Solu-MEDROL) VIAL IVP SCH ×3 (04:52→21:26)
[2023-02-04] MEDS: morphine ER 15 MG (MS CONTIN) TAB PO SCH ×3 (04:52→21:26)
[2023-02-04 05:03] LABS: BASOPHILS % (AUTO) 0 % (0-10); EOSINOPHILS % (AUTO) 0 % (0-10); HEMATOCRIT 29 % (35-52); HEMOGLOBIN 9.1 g/dL (11.5-16.0); LYMPHOCYTES # (AUTO) 0.5 10^3/uL (1.0-4.0); LYMPHOCYTES % (AUTO) 4 % (12-44); MEAN CORPUSCULAR HEMOGLOBIN 29 pg (25-34); MEAN CORPUSCULAR HGB CONC 31 g/dL (32-36); MEAN CORPUSCULAR VOLUME 93 fL (80-99); MEAN PLATELET VOLUME 9.2 fL (9.0-12.2); MONOCYTES # (AUTO) 0.3 10^3/uL (0.0-1.0); MONOCYTES % (AUTO) 2 % (0-12); NEUTROPHILS # (AUTO) 11.2 10^3/uL (1.8-7.8); NEUTROPHILS % (AUTO) 89 % (42-75); PLATELET COUNT 164 10^3/uL (130-400); WHITE BLOOD COUNT 12.6 10^3/uL (4.3-11.0)
[2023-02-04 05:31] LABS: CALCIUM 8.4 MG/DL (8.5-10.1); CREATININE SERUM 0.85 MG/DL (0.60-1.30); POTASSIUM 4.8 MMOL/L (3.6-5.0)
[2023-02-04] MEDS: POTASSIUM CL 10MEQ/50ML IVPB 50 ML IV SCH (05:34)
[2023-02-04] MEDS: CATHETER FLUSH 10 ML SYR IVP SCH ×3 (05:34→21:26)
[2023-02-04] MEDS: MAGNESIUM 1 GM/100 ML IVPB 100 ML IV SCH (05:34)
[2023-02-04] MEDS: KCL 20 MEQ TAB (K-DUR) PO SCH (05:34)
[2023-02-04 07:04] VITALS: BP 155/85
[2023-02-04] MEDS: amLODIPine 5 MG (NORVASC) TAB PO SCH (08:01)
[2023-02-04] MEDS: FOLIC ACID 1 MG TAB PO SCH (08:01)
[2023-02-04] MEDS: NICOTINE PATCH REMOVAL TP SCH (08:01)
[2023-02-04] MEDS: lisINopril 20 MG (PRINIVIL) TABLET PO SCH (08:01)
[2023-02-04] MEDS: NICOTINE 7 MG (NICODERM) PATCH TD SCH (08:01)
[2023-02-04] MEDS: meTOprolol TARTRATE 50 MG (LOPRESSOR) TAB PO SCH ×2 (08:01→21:26)
[2023-02-04] MEDS: ENOXAPARIN INJECTION 30 MG/0.3 ML SYR SC SCH (11:27)
[2023-02-04] MEDS: PANTOPRAZOLE 40 MG (PROTONIX) TAB PO SCH (11:27)
[2023-02-04] MEDS: LORazepam 0.5 MG (ATIVAN) TABLET PO PRN ×3 (11:28→21:26)
[2023-02-04 11:32] VITALS: BP 136/78
[2023-02-04 15:23] VITALS: BP 131/79
--- NOTE | 2023-02-04 15:25 | Progress Note - Hospitalist ---
Subjective HPI/CC On Admission Date Seen by Provider: Feb 04, 2023 Time Seen by Provider: 09:30 Lyndsey Sosa is a 72 year old female with PMH metastatic lung cancer on chemotherapy, chemotherapy induced pancytopenia, COPD, HTN, HLD, GERD, cachexia, who presented with shortness of breath. She has been having fevers. She denies cough. She has been on outpatient antibiotics but was not improving. She denies chest pain. She denies abdominal pain. She denies nausea and vomiting. She last had chemotherapy about one week ago. Subjective/Events-last exam She is anxious. She is eating. She denies shortness of breath. She denies pain. Objective Exam Vital Signs Vital Signs Date Time Temp Pulse Resp B/P (MAP) Pulse Ox O2 Delivery O2 Flow Rate FiO2 02/04/23 14:50 90 Vapotherm 35.00 55 02/04/23 11:32 36.2 86 18 136/78 (97) Capillary Refill : Less Than 3 Seconds General Appearance: No Apparent Distress, Chronically ill, Cachetic Respiratory: No Respiratory Distress, Decreased Breath Sounds Cardiovascular: Regular Rate, Rhythm, No Murmur Gastrointestinal: Normal Bowel Sounds, Soft Extremity: Normal Inspection, No Pedal Edema Neurologic/Psychiatric: Alert, Normal Mood/Affect Skin: Normal Color, Warm/Dry Results/Procedures Lab Laboratory Tests 02/04/23 04:55 Patient resulted labs reviewed. Imaging: Reviewed Imaging Report Assessment/Plan Assessment and Plan Assess & Plan/Chief Complaint Acute on chronic respiratory failure with hypoxia Metastatic lung cancer COPD Cachexia Pain of metastatic malignancy HTN HLD GERD Supplemental oxygen as needed Weaning Vapotherm as tolerated s/p Zosyn and Doxycycline Steroids LTAC pending, resubmitted to insurance, previously denied due to BiPAP dependence PT/OT DVT ppx: Lovenox Chemotherapy induced pancytopenia, resolved Sepsis due to pneumonia, resolved Diagnosis/Problems Diagnosis/Problems (1) Sepsis due to pneumonia Status: Acute (2) Acute on chronic respiratory failure with hypoxia Status: Acute (3) Metastatic lung cancer (metastasis from lung to other site) Status: Acute Qualifiers: Laterality: unspecified laterality Qualified Codes: C34.90 - Malignant neoplasm of unspecified part of unspecified bronchus or lung (4) Pancytopenia due to chemotherapy Status: Acute (5) COPD (chronic obstructive pulmonary disease) Status: Chronic Qualifiers: COPD type: COPD with acute exacerbation Qualified Codes: J44.1 - Chronic obstructive pulmonary disease with (acute) exacerbation (6) Pulmonary cachexia due to COPD Status: Chronic (7) HTN (hypertension) Status: Chronic (8) GERD (gastroesophageal reflux disease) Status: Chronic (9) Pain of metastatic malignancy Status: Chronic (10) HLD (hyperlipidemia) Status: Chronic FARA CAMPOS MD Feb 04, 2023 15:25
[2023-02-04] MEDS: ROSUVASTATIN 20 MG (CRESTOR) TABLET PO SCH (21:26)
[2023-02-04] MEDS: MELATONIN 3 MG TABLET PO SCH (21:26)
[2023-02-04 23:38] VITALS: BP 139/72
[2023-02-05] MEDS: RT-ALBUTEROL HFA 8.5 GM INHALER IH SCH ×6 (02:58→22:45)
[2023-02-05 03:39] VITALS: BP 122/72
[2023-02-05] MEDS: methylPREDNISolone 125 MG (Solu-MEDROL) VIAL IVP SCH ×3 (04:28→20:50)
[2023-02-05 04:39] LABS: BASOPHILS % (AUTO) 0 % (0-10); EOSINOPHILS % (AUTO) 0 % (0-10); HEMATOCRIT 29 % (35-52); HEMOGLOBIN 9.2 g/dL (11.5-16.0); LYMPHOCYTES # (AUTO) 0.4 10^3/uL (1.0-4.0); LYMPHOCYTES % (AUTO) 3 % (12-44); MEAN CORPUSCULAR HEMOGLOBIN 29 pg (25-34); MEAN CORPUSCULAR HGB CONC 32 g/dL (32-36); MEAN CORPUSCULAR VOLUME 93 fL (80-99); MEAN PLATELET VOLUME 9.4 fL (9.0-12.2); MONOCYTES # (AUTO) 0.2 10^3/uL (0.0-1.0); MONOCYTES % (AUTO) 2 % (0-12); NEUTROPHILS # (AUTO) 11.5 10^3/uL (1.8-7.8); NEUTROPHILS % (AUTO) 92 % (42-75); PLATELET COUNT 146 10^3/uL (130-400); WHITE BLOOD COUNT 12.5 10^3/uL (4.3-11.0)
[2023-02-05 04:59] LABS: CALCIUM 8.3 MG/DL (8.5-10.1); CREATININE SERUM 0.79 MG/DL (0.60-1.30); MAGNESIUM 1.9 MG/DL (1.6-2.4); POTASSIUM 4.4 MMOL/L (3.6-5.0)
[2023-02-05] MEDS: POTASSIUM CL 10MEQ/50ML IVPB 50 ML IV SCH (04:59)
[2023-02-05] MEDS: KCL 20 MEQ TAB (K-DUR) PO SCH (05:00)
[2023-02-05] MEDS: MAGNESIUM 1 GM/100 ML IVPB 100 ML IV SCH ×3 (05:48→06:44)
[2023-02-05] MEDS: morphine ER 15 MG (MS CONTIN) TAB PO SCH ×3 (05:48→21:00)
[2023-02-05] MEDS: CATHETER FLUSH 10 ML SYR IVP SCH ×3 (05:49→20:54)
[2023-02-05] MEDS: FOLIC ACID 1 MG TAB PO SCH (08:17)
[2023-02-05] MEDS: NICOTINE 7 MG (NICODERM) PATCH TD SCH (08:17)
[2023-02-05] MEDS: lisINopril 20 MG (PRINIVIL) TABLET PO SCH (08:17)
[2023-02-05] MEDS: NICOTINE PATCH REMOVAL TP SCH (08:17)
[2023-02-05] MEDS: amLODIPine 5 MG (NORVASC) TAB PO SCH (08:17)
[2023-02-05] MEDS: meTOprolol TARTRATE 50 MG (LOPRESSOR) TAB PO SCH ×2 (08:17→20:53)
[2023-02-05 08:23] VITALS: BP 136/78
[2023-02-05] MEDS: LORazepam 0.5 MG (ATIVAN) TABLET PO PRN ×3 (09:28→20:59)
--- NOTE | 2023-02-05 09:55 | Physical Therapy Progress Note ---
Therapy Progress Note Patient declined PT and OOB activity. Patient remains on Vapotherm. RN is aware. 1 ref ELISSA VALLE PT Feb 05, 2023 09:55
[2023-02-05] MEDS: ACETAMINOPHEN 500 MG TAB (TYLENOL) PO PRN (10:04)
[2023-02-05] MEDS: ENOXAPARIN INJECTION 30 MG/0.3 ML SYR SC SCH (10:19)
[2023-02-05] MEDS: PANTOPRAZOLE 40 MG (PROTONIX) TAB PO SCH (11:09)
[2023-02-05 12:17] VITALS: BP 116/58
--- NOTE | 2023-02-05 13:01 | Progress Note - Hospitalist ---
Subjective HPI/CC On Admission Date Seen by Provider: Feb 05, 2023 Lyndsey Sosa is a 72 year old female with PMH metastatic lung cancer on chemotherapy, chemotherapy induced pancytopenia, COPD, HTN, HLD, GERD, cachexia, who presented with shortness of breath. She has been having fevers. She denies cough. She has been on outpatient antibiotics but was not improving. She denies chest pain. She denies abdominal pain. She denies nausea and vomiting. She last had chemotherapy about one week ago. Subjective/Events-last exam Pt reports feeling better. Still on Vapotherm. Objective Exam Vital Signs Vital Signs Date Time Temp Pulse Resp B/P (MAP) Pulse Ox O2 Delivery O2 Flow Rate FiO2 02/05/23 12:17 36.5 76 20 116/58 (77) 97 Vapotherm 55.00 02/05/23 10:15 55 Capillary Refill : Less Than 3 Seconds General Appearance: No Apparent Distress, Chronically ill, Cachetic Respiratory: Lungs Clear, Other (on Vapotherm) Cardiovascular: Regular Rate, Rhythm, No Murmur Neurologic/Psychiatric: Alert, Oriented x3 Results/Procedures Lab Laboratory Tests 02/05/23 04:31 Patient resulted labs reviewed. Imaging: Reviewed Imaging Report Assessment/Plan Assessment and Plan Assess & Plan/Chief Complaint Acute on chronic respiratory failure with hypoxia Metastatic lung cancer COPD Cachexia Pain of metastatic malignancy HTN HLD GERD Weaning Vapotherm as tolerated, doing well Patient is clinically stable for LTACH transfer and would benefit from admission there for further oxygen weaning s/p Zosyn and Doxycycline Steroids LTAC pending, resubmitted to insurance, previously denied due to BiPAP dependence, now off BiPAP and on Vapotherm and I did Peer to Peer with Dr Moreno this morning- they still declined. Patient quiet upset regarding these denials and tearful during our conversation, expedited appeal started PT/OT DVT ppx: Lovenox Sepsis due to pneumonia, resolved RONEN PÉREZ MD Feb 05, 2023 13:01
--- NOTE | 2023-02-05 14:38 | Occ Therapy Progress Note ---
Therapy Progress Note Patient declined OT today. OT will monitor and continue POC w/ patent agreement TREVOR SILVERMAN OT Feb 05, 2023 14:38
[2023-02-05] MEDS: ONDANSETRON 4 MG/2 ML (SDV) Z0FRAN IV PRN (16:13)
[2023-02-05 16:43] VITALS: BP 117/71
[2023-02-05 19:14] VITALS: BP 149/81
[2023-02-05] MEDS: ROSUVASTATIN 20 MG (CRESTOR) TABLET PO SCH (20:53)
[2023-02-05] MEDS: MELATONIN 3 MG TABLET PO SCH (20:53)
[2023-02-05 23:55] VITALS: BP 118/72
[2023-02-06] MEDS: RT-ALBUTEROL HFA 8.5 GM INHALER IH SCH ×6 (03:14→21:23)
[2023-02-06 03:59] VITALS: BP 127/72
[2023-02-06] MEDS: methylPREDNISolone 125 MG (Solu-MEDROL) VIAL IVP SCH ×3 (04:21→21:17)
[2023-02-06] MEDS: CATHETER FLUSH 10 ML SYR IVP SCH ×3 (04:21→21:17)
[2023-02-06 04:48] LABS: BASOPHILS % (AUTO) 0 % (0-10); EOSINOPHILS % (AUTO) 0 % (0-10); HEMATOCRIT 29 % (35-52); HEMOGLOBIN 8.9 g/dL (11.5-16.0); LYMPHOCYTES # (AUTO) 0.3 10^3/uL (1.0-4.0); LYMPHOCYTES % (AUTO) 2 % (12-44); MEAN CORPUSCULAR HEMOGLOBIN 29 pg (25-34); MEAN CORPUSCULAR HGB CONC 31 g/dL (32-36); MEAN CORPUSCULAR VOLUME 93 fL (80-99); MEAN PLATELET VOLUME 9.5 fL (9.0-12.2); MONOCYTES # (AUTO) 0.3 10^3/uL (0.0-1.0); MONOCYTES % (AUTO) 2 % (0-12); NEUTROPHILS # (AUTO) 13.5 10^3/uL (1.8-7.8); NEUTROPHILS % (AUTO) 94 % (42-75); PLATELET COUNT 156 10^3/uL (130-400); WHITE BLOOD COUNT 14.4 10^3/uL (4.3-11.0)
[2023-02-06 05:04] LABS: POTASSIUM 4.9 MMOL/L (3.6-5.0)
[2023-02-06 05:05] LABS: CALCIUM 8.1 MG/DL (8.5-10.1)
[2023-02-06] MEDS: POTASSIUM CL 10MEQ/50ML IVPB 50 ML IV SCH (05:08)
[2023-02-06 05:09] LABS: CREATININE SERUM 0.86 MG/DL (0.60-1.30)
[2023-02-06] MEDS: KCL 20 MEQ TAB (K-DUR) PO SCH (05:09)
[2023-02-06] MEDS: MAGNESIUM 1 GM/100 ML IVPB 100 ML IV SCH (05:25)
[2023-02-06] MEDS: morphine ER 15 MG (MS CONTIN) TAB PO SCH ×3 (05:46→21:16)
[2023-02-06 05:59] LABS: LYMPHOCYTES % (MANUAL) 1 %; MONOCYTES % (MANUAL) 3 %; NEUTROPHILS % (MANUAL) 95 %
[2023-02-06 06:03] LABS: PROLYMPHOCYTE % 1 %
[2023-02-06 06:04] LABS: RBC MORPH NORMAL
[2023-02-06 07:51] VITALS: BP 108/53
--- NOTE | 2023-02-06 09:42 | Progress Note - Hospitalist ---
Subjective HPI/CC On Admission Date Seen by Provider: Feb 06, 2023 Lyndsey Sosa is a 72 year old female with PMH metastatic lung cancer on chemotherapy, chemotherapy induced pancytopenia, COPD, HTN, HLD, GERD, cachexia, who presented with shortness of breath. She has been having fevers. She denies cough. She has been on outpatient antibiotics but was not improving. She denies chest pain. She denies abdominal pain. She denies nausea and vomiting. She last had chemotherapy about one week ago. Subjective/Events-last exam Pt reports feeling better today. Mood improved. Breathing is about the same. Objective Exam Vital Signs Vital Signs Date Time Temp Pulse Resp B/P (MAP) Pulse Ox O2 Delivery O2 Flow Rate FiO2 02/06/23 07:51 35.5 76 16 108/53 (71) 93 Vapotherm 55.00 35.00 02/06/23 03:15 55 Capillary Refill : Less Than 3 Seconds General Appearance: No Apparent Distress, Chronically ill, Cachetic Respiratory: Lungs Clear, No Accessory Muscle Use, Other (on Vapotherm) Cardiovascular: Regular Rate, Rhythm, No Murmur Neurologic/Psychiatric: Alert, Oriented x3 Results/Procedures Lab Laboratory Tests 02/06/23 04:25 Patient resulted labs reviewed. Imaging: Reviewed Imaging Report Assessment/Plan Assessment and Plan Assess & Plan/Chief Complaint Acute on chronic respiratory failure with hypoxia Metastatic lung cancer COPD Cachexia Pain of metastatic malignancy HTN HLD GERD Weaning Vapotherm as tolerated, doing well Patient is clinically stable for LTACH transfer and would benefit from admission there for further oxygen weaning s/p Zosyn and Doxycycline Steroids- consider starting taper LTAC pending appeal, resubmitted to insurance, previously denied due to BiPAP dependence, now off BiPAP and on Vapotherm and I did Peer to Peer with Dr Moreno on 02/05- they still declined PT/OT DVT ppx: Lovenox Sepsis due to pneumonia, resolved RONEN PÉREZ MD Feb 06, 2023 09:42
[2023-02-06] MEDS: NICOTINE PATCH REMOVAL TP SCH (09:54)
[2023-02-06] MEDS: FOLIC ACID 1 MG TAB PO SCH (09:55)
[2023-02-06] MEDS: meTOprolol TARTRATE 50 MG (LOPRESSOR) TAB PO SCH ×2 (09:55→21:16)
[2023-02-06] MEDS: LORazepam 0.5 MG (ATIVAN) TABLET PO PRN ×3 (09:55→21:47)
[2023-02-06] MEDS: amLODIPine 5 MG (NORVASC) TAB PO SCH (09:55)
[2023-02-06] MEDS: lisINopril 20 MG (PRINIVIL) TABLET PO SCH (09:55)
[2023-02-06] MEDS: NICOTINE 7 MG (NICODERM) PATCH TD SCH (09:56)
[2023-02-06] MEDS: ENOXAPARIN 40 MG/0.4 ML (LOVENOX) SYR SC SCH (09:56)
[2023-02-06 11:14] VITALS: BP 150/81
--- NOTE | 2023-02-06 11:44 | Physical Therapy Daily Note ---
PT Daily Note-Current Subjective Patient agrees to PT. Pain Section J - Health Conditions 1. Rarely or not at all 2. Occasionally 3. Frequently 4. Almost constantly 8. Unable to answer Pain Effect on Sleep: 1 Pain Interference with Therapy: 1 Pain Interference w/Day-to-Day: 1 Mental Status Patient Orientation: Normal For Age Attachments: Oxygen (vapotherm), Vo Catheter Transfers SCALE: Activities may be completed with or without assistive devices. 7-Yrundiokrv-beasswt completes the activity by him/herself with no assistance from a helper. 5-Set-up or Clean-up Assistance-helper sets up or cleans up; patient completes activity. [place] assists only prior to or following the activity. 4-Supervision or Touching Assistance-helper provides verbal cues and/or touching/steadying and/or contact guard assistance as patient completes activity. Assistance may be provided throughout the activity or intermittently. 3-Partial/Moderate Assistance-helper does LESS THAN HALF the effort. [place] lifts, holds or supports trunk or limbs, but provides less than half the effort. 2-Substantial/Maximal Assistance-helper does MORE THAN HALF the effort. [place] lifts or holds trunk or limbs and provides more than half the effort. 8-Cfpiznzgr-zwnnsi does ALL the effort. Patient does none of the effort to complete the activity. Or, the assistance of 2 or more helpers is required for the patient to complete the activity. If activity was not attempted, code reason: 7-Patient Refused. 9-Not Applicable-not attempted and the patient did not perform the activity before the current illness, exacerbation or injury. 10-Not Attempted due to Environmental Limitations-(lack of equipment, weather restraints, etc.). 88-Not Attempted due to Medical Conditions or Safety Concerns. Lying to Sitting/Side of Bed(Q: 6 Sit to Stand (QC): 6 Chair/Bww-jg-Yswsf Xfer(QC): 6 Exercises Seated Therapy Exercises: Ankle pumps, Long arc quads, Hip flexion Seated Reps: 15 (x 2 sets) Assessment Patient up in recliner with needs met. Patient is independent with all mobility but continues to require Vapotherm due to O2 demand. PT Restaurant Line Server Goals Restaurant Line Server Goals PT Restaurant Line Server Goals Time Frame: Feb 10, 2023 Roll Left & Right (QC): 6 Sit to Lying (QC): 6 Lying-Sitting on Side/Bed(QC): 6 Sit to Stand (QC): 6 Chair/Wtk-mx-Dssya Xfer(QC): 6 Walk 10 feet (QC): 6 Walk 50ft with 2 Turns (QC): 6 PT Plan Treatment/Plan Treatment Plan: Continue Plan of Care Treatment Plan: Education, Functional Activity Andra, Functional Strength, Gait, Safety, Therapeutic Exercise, Transfers Treatment Duration: Feb 10, 2023 Frequency: 6 times per week Estimated Hrs Per Day: .25 hour per day Patient and/or Family Agrees t: Yes Time Time In: 1034 Time Out: 1044 DATE: Feb 06, 2023 Total Billed Treatment Time: 10 Total Billed Treatment 1 visit FA 10min ELISSA VALLE PT Feb 06, 2023 11:44
[2023-02-06] MEDS: PANTOPRAZOLE 40 MG (PROTONIX) TAB PO SCH (12:54)
[2023-02-06 15:59] VITALS: BP 140/60
[2023-02-06 19:08] VITALS: BP 117/56
[2023-02-06] MEDS: MELATONIN 3 MG TABLET PO SCH (21:16)
[2023-02-06] MEDS: ROSUVASTATIN 20 MG (CRESTOR) TABLET PO SCH (21:16)
[2023-02-06 23:34] VITALS: BP 125/70
[2023-02-07] MEDS: RT-ALBUTEROL HFA 8.5 GM INHALER IH SCH ×5 (02:40→20:27)
[2023-02-07 04:02] VITALS: BP 113/74
[2023-02-07] MEDS: methylPREDNISolone 125 MG (Solu-MEDROL) VIAL IVP SCH ×3 (04:15→19:34)
[2023-02-07 04:33] LABS: BASOPHILS % (AUTO) 0 % (0-10); EOSINOPHILS % (AUTO) 0 % (0-10); HEMATOCRIT 28 % (35-52); LYMPHOCYTES # (AUTO) 0.3 10^3/uL (1.0-4.0); LYMPHOCYTES % (AUTO) 2 % (12-44); MEAN CORPUSCULAR HEMOGLOBIN 30 pg (25-34); MEAN CORPUSCULAR HGB CONC 32 g/dL (32-36); MEAN CORPUSCULAR VOLUME 92 fL (80-99); MEAN PLATELET VOLUME 9.6 fL (9.0-12.2); MONOCYTES # (AUTO) 0.2 10^3/uL (0.0-1.0); MONOCYTES % (AUTO) 2 % (0-12); NEUTROPHILS % (AUTO) 93 % (42-75); PLATELET COUNT 142 10^3/uL (130-400); WHITE BLOOD COUNT 11.8 10^3/uL (4.3-11.0)
[2023-02-07 04:39] LABS: POTASSIUM 4.3 MMOL/L (3.6-5.0)
[2023-02-07 04:44] LABS: CREATININE SERUM 0.81 MG/DL (0.60-1.30)
[2023-02-07 04:47] LABS: MAGNESIUM 1.8 MG/DL (1.6-2.4)
[2023-02-07] MEDS: KCL 20 MEQ TAB (K-DUR) PO SCH (04:57)
[2023-02-07] MEDS: POTASSIUM CL 10MEQ/50ML IVPB 50 ML IV SCH (04:57)
[2023-02-07] MEDS: MAGNESIUM 1 GM/100 ML IVPB 100 ML IV SCH ×3 (04:58→06:24)
[2023-02-07] MEDS: CATHETER FLUSH 10 ML SYR IVP SCH ×3 (05:32→19:35)
[2023-02-07] MEDS: morphine ER 15 MG (MS CONTIN) TAB PO SCH ×3 (05:46→21:45)
[2023-02-07] MEDS: amLODIPine 5 MG (NORVASC) TAB PO SCH (08:08)
[2023-02-07] MEDS: NICOTINE 7 MG (NICODERM) PATCH TD SCH (08:08)
[2023-02-07] MEDS: FOLIC ACID 1 MG TAB PO SCH (08:08)
[2023-02-07] MEDS: lisINopril 20 MG (PRINIVIL) TABLET PO SCH (08:08)
[2023-02-07] MEDS: meTOprolol TARTRATE 50 MG (LOPRESSOR) TAB PO SCH ×2 (08:11→19:34)
[2023-02-07 08:21] VITALS: BP 133/69
[2023-02-07] MEDS: LORazepam 0.5 MG (ATIVAN) TABLET PO PRN ×2 (09:15→19:34)
[2023-02-07] MEDS: NICOTINE PATCH REMOVAL TP SCH (10:42)
--- NOTE | 2023-02-07 11:07 | Progress Note - Hospitalist ---
Subjective HPI/CC On Admission Date Seen by Provider: Feb 07, 2023 Lyndsey Sosa is a 72 year old female with PMH metastatic lung cancer on chemotherapy, chemotherapy induced pancytopenia, COPD, HTN, HLD, GERD, cachexia, who presented with shortness of breath. She has been having fevers. She denies cough. She has been on outpatient antibiotics but was not improving. She denies chest pain. She denies abdominal pain. She denies nausea and vomiting. She last had chemotherapy about one week ago. Subjective/Events-last exam Pt reports doing well. Sat up in the chair a lot yesterday. Breathing stable. Objective Exam Vital Signs Vital Signs Date Time Temp Pulse Resp B/P (MAP) Pulse Ox O2 Delivery O2 Flow Rate FiO2 02/07/23 10:44 88 Vapotherm 35.00 55 02/07/23 08:21 36.1 80 16 133/69 (90) Capillary Refill : Less Than 3 Seconds General Appearance: No Apparent Distress, Chronically ill, Cachetic Respiratory: Decreased Breath Sounds; No Wheezing Cardiovascular: Regular Rate, Rhythm, No Murmur Neurologic/Psychiatric: Alert, Oriented x3 Results/Procedures Lab Laboratory Tests 02/07/23 04:14 Patient resulted labs reviewed. Imaging: Reviewed Imaging Report Assessment/Plan Assessment and Plan Assess & Plan/Chief Complaint Acute on chronic respiratory failure with hypoxia Metastatic lung cancer COPD Cachexia Pain of metastatic malignancy HTN HLD GERD Weaning Vapotherm as tolerated, doing well Patient is clinically stable for LTACH transfer and would benefit from admission there for further oxygen weaning s/p Zosyn and Doxycycline Steroids- consider starting taper LTAC pending appeal, resubmitted to insurance, previously denied due to BiPAP dependence, now off BiPAP and on Vapotherm and I did Peer to Peer with Dr Moreno on 02/05- they still declined Awaiting appeal PT DVT ppx: Lovenox Sepsis due to pneumonia, resolved RONEN PÉREZ MD Feb 07, 2023 11:07
--- NOTE | 2023-02-07 11:31 | Occ Therapy Progress Note ---
Therapy Progress Note Patient refused therapy on therapist entry, OT will continue to monitor for appropriateness TREVOR SILVERMAN OT Feb 07, 2023 11:31
[2023-02-07 11:37] VITALS: BP 107/66
[2023-02-07] MEDS: ENOXAPARIN 40 MG/0.4 ML (LOVENOX) SYR SC SCH (12:20)
[2023-02-07] MEDS: ONDANSETRON 4 MG/2 ML (SDV) Z0FRAN IV PRN (12:22)
[2023-02-07] MEDS: PANTOPRAZOLE 40 MG (PROTONIX) TAB PO SCH (12:23)
--- NOTE | 2023-02-07 14:35 | Physical Therapy Daily Note ---
PT Daily Note-Current Subjective Patient lying supine in bed upon PT arrival, agreeable to treatment but reports she is too tired to get out of bed. Pain Section J - Health Conditions 1. Rarely or not at all 2. Occasionally 3. Frequently 4. Almost constantly 8. Unable to answer Pain Effect on Sleep: 1 Pain Interference with Therapy: 1 Pain Interference w/Day-to-Day: 1 Mental Status Patient Orientation: Person Transfers SCALE: Activities may be completed with or without assistive devices. 2-Ubojoarpbw-cgqiawq completes the activity by him/herself with no assistance from a helper. 5-Set-up or Clean-up Assistance-helper sets up or cleans up; patient completes activity. [place] assists only prior to or following the activity. 4-Supervision or Touching Assistance-helper provides verbal cues and/or touching/steadying and/or contact guard assistance as patient completes activity. Assistance may be provided throughout the activity or intermittently. 3-Partial/Moderate Assistance-helper does LESS THAN HALF the effort. [place] lifts, holds or supports trunk or limbs, but provides less than half the effort. 2-Substantial/Maximal Assistance-helper does MORE THAN HALF the effort. [place] lifts or holds trunk or limbs and provides more than half the effort. 1-Czmmhhmuh-xqgesc does ALL the effort. Patient does none of the effort to complete the activity. Or, the assistance of 2 or more helpers is required for the patient to complete the activity. If activity was not attempted, code reason: 7-Patient Refused. 9-Not Applicable-not attempted and the patient did not perform the activity before the current illness, exacerbation or injury. 10-Not Attempted due to Environmental Limitations-(lack of equipment, weather restraints, etc.). 88-Not Attempted due to Medical Conditions or Safety Concerns. Exercises Supine Ex: Ankle pumps, Quad Set, Glut sets, Heel Slides, Short Arc Quads, Straight leg raise, Hip abd/add Supine Reps: 20 Assessment Current Status: Poor Progress Patient tolerated therapeutic exercise as listed above well. She demonstrates no significant decline in O2 sats at this time. Patient in bed post treatment with all needs met, nursing notified, call light in hand. PT [facility] Goals Pairer Inspector Goals PT Pairer Inspector Goals Time Frame: Feb 10, 2023 Roll Left & Right (QC): 6 Sit to Lying (QC): 6 Lying-Sitting on Side/Bed(QC): 6 Sit to Stand (QC): 6 Chair/Wyn-pg-Hivvp Xfer(QC): 6 Walk 10 feet (QC): 6 Walk 50ft with 2 Turns (QC): 6 PT Plan Treatment/Plan Treatment Plan: Continue Plan of Care Treatment Plan: Education, Functional Activity Andra, Functional Strength, Gait, Safety, Therapeutic Exercise, Transfers Treatment Duration: Feb 10, 2023 Frequency: 6 times per week Estimated Hrs Per Day: .25 hour per day Patient and/or Family Agrees t: Yes Time Time In: 1045 Time Out: 1100 DATE: Feb 07, 2023 Total Billed Treatment Time: 15 Total Billed Treatment Visit, Ex LUPE WETZEL PT Feb 07, 2023 14:35
[2023-02-07 16:20] VITALS: BP 110/63
[2023-02-07] MEDS: ROSUVASTATIN 20 MG (CRESTOR) TABLET PO SCH (19:35)
[2023-02-07 19:59] VITALS: BP 116/62
[2023-02-07] MEDS: MELATONIN 3 MG TABLET PO SCH (21:34)
[2023-02-08] VITALS (7 sets, daily range): BP systolic 109–138; BP diastolic 22–74
[2023-02-08] MEDS: RT-ALBUTEROL HFA 8.5 GM INHALER IH SCH ×6 (03:22→21:55)
[2023-02-08] MEDS: methylPREDNISolone 125 MG (Solu-MEDROL) VIAL IVP SCH ×3 (04:04→20:31)
[2023-02-08 04:15] LABS: BASOPHILS % (AUTO) 0 % (0-10); EOSINOPHILS % (AUTO) 0 % (0-10); HEMATOCRIT 27 % (35-52); HEMOGLOBIN 8.9 g/dL (11.5-16.0); LYMPHOCYTES # (AUTO) 0.4 10^3/uL (1.0-4.0); LYMPHOCYTES % (AUTO) 3 % (12-44); MEAN CORPUSCULAR HEMOGLOBIN 30 pg (25-34); MEAN CORPUSCULAR HGB CONC 33 g/dL (32-36); MEAN CORPUSCULAR VOLUME 92 fL (80-99); MEAN PLATELET VOLUME 9.3 fL (9.0-12.2); MONOCYTES # (AUTO) 0.3 10^3/uL (0.0-1.0); MONOCYTES % (AUTO) 2 % (0-12); NEUTROPHILS # (AUTO) 10.1 10^3/uL (1.8-7.8); NEUTROPHILS % (AUTO) 90 % (42-75); PLATELET COUNT 121 10^3/uL (130-400); WHITE BLOOD COUNT 11.2 10^3/uL (4.3-11.0)
[2023-02-08 04:50] LABS: POTASSIUM 4.4 MMOL/L (3.6-5.0)
[2023-02-08 04:55] LABS: CREATININE SERUM 0.77 MG/DL (0.60-1.30)
[2023-02-08] MEDS: KCL 20 MEQ TAB (K-DUR) PO SCH (04:56)
[2023-02-08] MEDS: POTASSIUM CL 10MEQ/50ML IVPB 50 ML IV SCH (04:56)
[2023-02-08] MEDS: MAGNESIUM 1 GM/100 ML IVPB 100 ML IV SCH (04:59)
[2023-02-08] MEDS: CATHETER FLUSH 10 ML SYR IVP SCH ×3 (06:16→22:24)
[2023-02-08] MEDS: morphine ER 15 MG (MS CONTIN) TAB PO SCH ×3 (06:47→22:24)
[2023-02-08] MEDS: meTOprolol TARTRATE 50 MG (LOPRESSOR) TAB PO SCH ×2 (09:16→20:32)
[2023-02-08] MEDS: NICOTINE 7 MG (NICODERM) PATCH TD SCH (09:16)
[2023-02-08] MEDS: LORazepam 0.5 MG (ATIVAN) TABLET PO PRN ×3 (09:16→20:31)
[2023-02-08] MEDS: amLODIPine 5 MG (NORVASC) TAB PO SCH (09:16)
[2023-02-08] MEDS: NICOTINE PATCH REMOVAL TP SCH (09:17)
[2023-02-08] MEDS: lisINopril 20 MG (PRINIVIL) TABLET PO SCH (09:17)
[2023-02-08] MEDS: FOLIC ACID 1 MG TAB PO SCH (09:17)
--- NOTE | 2023-02-08 09:45 | Physical Therapy Progress Note ---
Therapy Progress Note Patient declined PT stating, "I'm going to work with OT today." PT attempted to educate patient on importance of increasing activity to improve pulmonary function, however, patient continued to refuse PT. Will attempt tomorrow. 1 ref ELISSA VALLE PT Feb 08, 2023 09:45
[2023-02-08] MEDS: ONDANSETRON 4 MG/2 ML (SDV) Z0FRAN IV PRN (10:08)
[2023-02-08] MEDS: PANTOPRAZOLE 40 MG (PROTONIX) TAB PO SCH (12:14)
[2023-02-08] MEDS: ENOXAPARIN 40 MG/0.4 ML (LOVENOX) SYR SC SCH (12:14)
--- NOTE | 2023-02-08 14:56 | Occupational Ther Daily Note ---
OT Current Status-Daily Note Subjective Patient is agreeable to OT in bed. Mental Status/Objective Patient Orientation: Situation Attachments: Oxygen bucket in lap ADL-Treatment Therapy Code Descriptions/Definitions Functional [place] Measure: 0=Not Assessed/NA 4=Minimal Assistance 1=Total Assistance 5=Supervision or Setup 2=Maximal Assistance 6=Modified [place] 3=Moderate Assistance 7=Complete IndependenceSCALE: Activities may be completed with or without assistive devices. 5-Wmqqrmzhww-qbzdiqv completes the activity by him/herself with no assistance from a helper. 5-Set-up or Clean-up Assistance-helper sets up or cleans up; patient completes activity. [place] assists only prior to or following the activity. 4-Supervision or Touching Assistance-helper provides verbal cues and/or touching/steadying and/or contact guard assistance as patient completes activity. Assistance may be provided throughout the activity or intermittently. 3-Partial/Moderate Assistance-helper does LESS THAN HALF the effort. [place] lifts, holds or supports trunk or limbs, but provides less than half the effort. 2-Substantial/Maximal Assistance-helper does MORE THAN HALF the effort. [place] lifts or holds trunk or limbs and provides more than half the effort. 5-Jrvqvufej-vydpns does ALL the effort. Patient does none of the effort to complete the activity. Or, the assistance of 2 or more helpers is required for the patient to complete the activity. If activity was not attempted, code reason: 7-Patient Refused. 9-Not Applicable-not attempted and the patient did not perform the activity before the current illness, exacerbation or injury. 10-Not Attempted due to Environmental Limitations-(lack of equipment, weather restraints, etc.). 88-Not Attempted due to Medical Conditions or Safety Concerns. Eating (QC): 6 Oral Hygiene (QC): 5 no other ADLS addressed, patient not feeling well, agrees to sit side of bed and perform face hygiene and oral care w/ sponge Education OT Patient Education: Correct positioning, Energy conservation, Modified ADL techniques, Safety issues Teaching Recipient: Patient Teaching Methods: Demonstration Response to Teaching: Verbalize Understanding OT Care Home Goals Care Home Goals Eating (QC): 5 Oral Hygiene (QC): 4 Toileting Hygiene (QC): 4 Shower/Bathe Self (QC): 4 Upper Body Dressing (QC): 4 Lower Body Dressing (QC): 4 On/Off Footwear (QC): 4 1=Demonstrate adherence to instructed precautions during ADL tasks. 2=Patient will verbalize/demonstrate understanding of assistive devices/patsy fications for ADL. 3=Patient will improve strength/tolerance for activity to enable patient to perform ADL's. OT Education/Plan Discharge Recommendations Plan/Recommendations: Continue POC Treatment Plan/Plan of Care Patient would benefit from OT for education, treatment and training to promote independence in ADL's, mobility, safety and/or upper extremity function for ADL's. Plan of Care: ADL Retraining, Concurrent Therapy, Functional Mobility, Group Exercise/Act as Ind, UE Funct Exercise/Act Treatment Duration: Feb 10, 2023 Frequency: 3 times per week (3-5 times per week) Estimated Hrs Per Day: .25 hour per day Rehab Potential: Guarded Time Start Time: 11:17 Stop Time: 11:31 DATE: Feb 08, 2023 Total Time Billed (hr/min): 13 Billed Treatment Time ADL 13 min TREVOR SILVERMAN OT Feb 08, 2023 14:55
[2023-02-08] MEDS: ROSUVASTATIN 20 MG (CRESTOR) TABLET PO SCH (20:31)
[2023-02-08] MEDS: MELATONIN 3 MG TABLET PO SCH (20:32)
[2023-02-09] VITALS (7 sets, daily range): BP systolic 111–148; BP diastolic 64–80
[2023-02-09] MEDS: methylPREDNISolone 125 MG (Solu-MEDROL) VIAL IVP SCH ×2 (03:45→11:06)
[2023-02-09 03:55] LABS: EOSINOPHILS % (AUTO) 0 % (0-10)
[2023-02-09 03:57] LABS: BASOPHILS % (AUTO) 0 % (0-10); HEMATOCRIT 29 % (35-52); HEMOGLOBIN 9.2 g/dL (11.5-16.0); LYMPHOCYTES # (AUTO) 0.3 10^3/uL (1.0-4.0); LYMPHOCYTES % (AUTO) 2 % (12-44); MEAN CORPUSCULAR HEMOGLOBIN 30 pg (25-34); MEAN CORPUSCULAR HGB CONC 32 g/dL (32-36); MEAN CORPUSCULAR VOLUME 93 fL (80-99); MEAN PLATELET VOLUME 9.3 fL (9.0-12.2); MONOCYTES # (AUTO) 0.3 10^3/uL (0.0-1.0); MONOCYTES % (AUTO) 3 % (0-12); NEUTROPHILS % (AUTO) 91 % (42-75); PLATELET COUNT 132 10^3/uL (130-400)
[2023-02-09 04:21] LABS: POTASSIUM 3.9 MMOL/L (3.6-5.0)
[2023-02-09 04:26] LABS: CREATININE SERUM 0.83 MG/DL (0.60-1.30)
[2023-02-09 04:29] LABS: MAGNESIUM 1.8 MG/DL (1.6-2.4)
[2023-02-09] MEDS: POTASSIUM CL 10MEQ/50ML IVPB 50 ML IV SCH (04:36)
[2023-02-09] MEDS: KCL 20 MEQ TAB (K-DUR) PO SCH (04:37)
[2023-02-09] MEDS: MAGNESIUM 1 GM/100 ML IVPB 100 ML IV SCH ×3 (04:37→06:32)
[2023-02-09] MEDS ORDERED: KCL 20 MEQ TAB (K-DUR) PO ONE (05:00)
[2023-02-09] MEDS: CATHETER FLUSH 10 ML SYR IVP SCH ×3 (06:32→20:51)
[2023-02-09] MEDS: morphine ER 15 MG (MS CONTIN) TAB PO SCH ×3 (06:32→22:17)
[2023-02-09] MEDS: RT-ALBUTEROL HFA 8.5 GM INHALER IH SCH ×5 (06:57→21:44)
[2023-02-09] MEDS: meTOprolol TARTRATE 50 MG (LOPRESSOR) TAB PO SCH ×2 (08:23→20:50)
[2023-02-09] MEDS: lisINopril 20 MG (PRINIVIL) TABLET PO SCH (08:23)
[2023-02-09] MEDS: NICOTINE 7 MG (NICODERM) PATCH TD SCH (08:23)
[2023-02-09] MEDS: LORazepam 0.5 MG (ATIVAN) TABLET PO PRN ×2 (08:23→18:45)
[2023-02-09] MEDS: amLODIPine 5 MG (NORVASC) TAB PO SCH (08:23)
[2023-02-09] MEDS: NICOTINE PATCH REMOVAL TP SCH (08:24)
[2023-02-09] MEDS: FOLIC ACID 1 MG TAB PO SCH (08:32)
--- NOTE | 2023-02-09 11:00 | Occupational Ther Daily Note ---
OT Current Status-Daily Note Subjective Pt seen in room, up in bed. Pt declined OT, stating that she was "all drugged up" and too drowsy to do anything. ADL-Treatment Therapy Code Descriptions/Definitions Functional [place] Measure: 0=Not Assessed/NA 4=Minimal Assistance 1=Total Assistance 5=Supervision or Setup 2=Maximal Assistance 6=Modified [place] 3=Moderate Assistance 7=Complete IndependenceSCALE: Activities may be completed with or without assistive devices. 3-Tfzszvrhxx-iiioedx completes the activity by him/herself with no assistance from a helper. 5-Set-up or Clean-up Assistance-helper sets up or cleans up; patient completes activity. [place] assists only prior to or following the activity. 4-Supervision or Touching Assistance-helper provides verbal cues and/or touching/steadying and/or contact guard assistance as patient completes activity. Assistance may be provided throughout the activity or intermittently. 3-Partial/Moderate Assistance-helper does LESS THAN HALF the effort. [place] lifts, holds or supports trunk or limbs, but provides less than half the effort. 2-Substantial/Maximal Assistance-helper does MORE THAN HALF the effort. [place] lifts or holds trunk or limbs and provides more than half the effort. 5-Ffgybzgug-nadiao does ALL the effort. Patient does none of the effort to complete the activity. Or, the assistance of 2 or more helpers is required for the patient to complete the activity. If activity was not attempted, code reason: 7-Patient Refused. 9-Not Applicable-not attempted and the patient did not perform the activity before the current illness, exacerbation or injury. 10-Not Attempted due to Environmental Limitations-(lack of equipment, weather restraints, etc.). 88-Not Attempted due to Medical Conditions or Safety Concerns. OT Senior Care Goals Senior Sourcing Manager Goals Eating (QC): 5 Oral Hygiene (QC): 4 Toileting Hygiene (QC): 4 Shower/Bathe Self (QC): 4 Upper Body Dressing (QC): 4 Lower Body Dressing (QC): 4 On/Off Footwear (QC): 4 1=Demonstrate adherence to instructed precautions during ADL tasks. 2=Patient will verbalize/demonstrate understanding of assistive devices/modifications for ADL. 3=Patient will improve strength/tolerance for activity to enable patient to perform ADL's. OT Education/Plan Discharge Recommendations Plan/Recommendations: Continue POC Treatment Plan/Plan of Care Patient would benefit from OT for education, treatment and training to promote independence in ADL's, mobility, safety and/or upper extremity function for ADL's. Plan of Care: ADL Retraining, Concurrent Therapy, Functional Mobility, Group Exercise/Act as Ind, UE Funct Exercise/Act Treatment Duration: Feb 10, 2023 Frequency: 3 times per week (3-5 times per week) Estimated Hrs Per Day: .25 hour per day Rehab Potential: Guarded Time Start Time: 10:19 Stop Time: 10:20 DATE: Feb 09, 2023 Total Time Billed (hr/min): 1 Billed Treatment Time visit SARITHA GARCES OT Feb 09, 2023 11:00
--- NOTE | 2023-02-09 11:01 | Physical Therapy Progress Note ---
Therapy Progress Note Patient declined PT at this time stating, "I will begin on Sunday." PT attempted to educate patient on importance of participating with PT to improve pulmonary function and functional mobility, however, patient continued to declined PT. Physician notified. 1 ref ELISSA VALLE PT Feb 09, 2023 11:01
[2023-02-09] MEDS: PANTOPRAZOLE 40 MG (PROTONIX) TAB PO SCH (11:06)
[2023-02-09] MEDS: ENOXAPARIN 40 MG/0.4 ML (LOVENOX) SYR SC SCH (11:07)
--- NOTE | 2023-02-09 11:28 | Progress Note - Hospitalist ---
Subjective HPI/CC On Admission Date Seen by Provider: Feb 08, 2023 Lyndsey Sosa is a 72 year old female with PMH metastatic lung cancer on chemotherapy, chemotherapy induced pancytopenia, COPD, HTN, HLD, GERD, cachexia, who presented with shortness of breath. She has been having fevers. She denies cough. She has been on outpatient antibiotics but was not improving. She denies chest pain. She denies abdominal pain. She denies nausea and vomiting. She last had chemotherapy about one week ago. Subjective/Events-last exam late entry note Patient reports doing well. Hoping to hear from insurance regarding LTACH placement. Objective Exam Vital Signs Vital Signs Date Time Temp Pulse Resp B/P (MAP) Pulse Ox O2 Delivery O2 Flow Rate FiO2 02/09/23 10:26 92 Vapotherm 20.00 45 02/09/23 07:59 36.6 76 20 148/80 (102) Capillary Refill : Less Than 3 Seconds General Appearance: No Apparent Distress, Chronically ill, Thin Respiratory: Lungs Clear, No Accessory Muscle Use, Other (on Vapotherm) Cardiovascular: Regular Rate, Rhythm, No Murmur Neurologic/Psychiatric: Alert, Oriented x3 Results/Procedures Lab Laboratory Tests 02/09/23 03:48 Patient resulted labs reviewed. Imaging: Reviewed Imaging Report Assessment/Plan Assessment and Plan Assess & Plan/Chief Complaint Acute on chronic respiratory failure with hypoxia Metastatic lung cancer COPD Cachexia Pain of metastatic malignancy HTN HLD GERD Weaning Vapotherm as tolerated, doing well Patient is clinically stable for LTACH transfer and would benefit from admission there for further oxygen weaning s/p Zosyn and Doxycycline Steroids- consider weaning to oral tomorrow LTAC pending appeal, resubmitted to insurance, previously denied due to BiPAP dependence, now off BiPAP and on Vapotherm and I did Peer to Peer with Dr Moreno on 02/05- they still declined Awaiting appeal still DVT ppx: Lovenox Sepsis due to pneumonia, resolved RONEN PÉREZ MD Feb 09, 2023 11:28
[2023-02-09] MEDS ORDERED: predniSONE 20 MG TAB PO NR (11:30)
--- NOTE | 2023-02-09 11:30 | Progress Note - Hospitalist ---
Subjective HPI/CC On Admission Date Seen by Provider: Feb 09, 2023 Lyndsey Sosa is a 72 year old female with PMH metastatic lung cancer on chemotherapy, chemotherapy induced pancytopenia, COPD, HTN, HLD, GERD, cachexia, who presented with shortness of breath. She has been having fevers. She denies cough. She has been on outpatient antibiotics but was not improving. She denies chest pain. She denies abdominal pain. She denies nausea and vomiting. She last had chemotherapy about one week ago. Subjective/Events-last exam Pt reports feeling well today. Hoping to get up and work with PT more today. Requests I call her sister today. Patient states she's given up hope her insurance would let her go to the LTACH. Objective Exam Vital Signs Vital Signs Date Time Temp Pulse Resp B/P (MAP) Pulse Ox O2 Delivery O2 Flow Rate FiO2 02/09/23 10:26 92 Vapotherm 20.00 45 02/09/23 07:59 36.6 76 20 148/80 (102) Capillary Refill : Less Than 3 Seconds General Appearance: No Apparent Distress, Chronically ill, Thin Respiratory: Lungs Clear, No Respiratory Distress, Other (on vapotherm) Cardiovascular: Regular Rate, Rhythm, No Murmur Gastrointestinal: Normal Bowel Sounds, Soft Neurologic/Psychiatric: Alert, Oriented x3 Results/Procedures Lab Laboratory Tests 02/09/23 03:48 Patient resulted labs reviewed. Imaging: Reviewed Imaging Report Assessment/Plan Assessment and Plan Assess & Plan/Chief Complaint Acute on chronic respiratory failure with hypoxia Metastatic lung cancer COPD Cachexia Pain of metastatic malignancy HTN HLD GERD Weaning Vapotherm as tolerated, doing well Patient is clinically stable for LTACH transfer and would benefit from admission there for further oxygen weaning s/p Zosyn and Doxycycline Steroids- switch to oral prednisone LTAC pending appeal, resubmitted to insurance, previously denied due to BiPAP dependence, now off BiPAP and on Vapotherm and I did Peer to Peer with Dr Moreno on 02/05- they still declined Awaiting appeal still Discusssed with RT and will add continuous pulse ox to help more aggressively wean oxygen here DVT ppx: Lovenox Sepsis due to pneumonia, resolved RONEN PÉREZ MD Feb 09, 2023 11:30
[2023-02-09] MEDS: ROSUVASTATIN 20 MG (CRESTOR) TABLET PO SCH (20:50)
[2023-02-09] MEDS: MELATONIN 3 MG TABLET PO SCH (20:50)
[2023-02-10 03:53] VITALS: BP 148/74
[2023-02-10] MEDS: morphine ER 15 MG (MS CONTIN) TAB PO SCH ×3 (05:49→21:30)
[2023-02-10] MEDS: predniSONE 20 MG TAB PO SCH (05:49)
[2023-02-10 05:51] LABS: ALBUMIN 2.5 GM/DL (3.2-4.5)
[2023-02-10 05:53] LABS: TOTAL PROTEIN 3.9 GM/DL (6.4-8.2)
[2023-02-10 05:55] LABS: BILIRUBIN,TOTAL 0.3 MG/DL (0.1-1.0)
[2023-02-10] MEDS: KCL 20 MEQ TAB (K-DUR) PO SCH (05:56)
[2023-02-10] MEDS: POTASSIUM CL 10MEQ/50ML IVPB 50 ML IV SCH (05:56)
[2023-02-10 05:57] LABS: CREATININE SERUM 0.75 MG/DL (0.60-1.30)
[2023-02-10] MEDS: CATHETER FLUSH 10 ML SYR IVP SCH ×3 (05:57→20:09)
[2023-02-10] MEDS: MAGNESIUM 1 GM/100 ML IVPB 100 ML IV SCH (06:03)
[2023-02-10 07:41] VITALS: BP 114/59
[2023-02-10] MEDS: RT-ALBUTEROL HFA 8.5 GM INHALER IH SCH ×5 (07:44→22:11)
[2023-02-10] MEDS: LORazepam 0.5 MG (ATIVAN) TABLET PO PRN ×4 (08:43→22:01)
[2023-02-10] MEDS: NICOTINE 7 MG (NICODERM) PATCH TD SCH (08:43)
[2023-02-10] MEDS: FOLIC ACID 1 MG TAB PO SCH (08:43)
[2023-02-10] MEDS: amLODIPine 5 MG (NORVASC) TAB PO SCH (08:43)
[2023-02-10] MEDS: meTOprolol TARTRATE 50 MG (LOPRESSOR) TAB PO SCH ×2 (08:44→20:08)
[2023-02-10] MEDS: lisINopril 20 MG (PRINIVIL) TABLET PO SCH (08:44)
[2023-02-10] MEDS: NICOTINE PATCH REMOVAL TP SCH (08:44)
--- NOTE | 2023-02-10 10:57 | Progress Note - Hospitalist ---
Subjective HPI/CC On Admission Date Seen by Provider: Feb 10, 2023 Lyndsey Sosa is a 72 year old female with PMH metastatic lung cancer on chemotherapy, chemotherapy induced pancytopenia, COPD, HTN, HLD, GERD, cachexia, who presented with shortness of breath. She has been having fevers. She denies cough. She has been on outpatient antibiotics but was not improving. She denies chest pain. She denies abdominal pain. She denies nausea and vomiting. She last had chemotherapy about one week ago. Subjective/Events-last exam Pt reports doing well today. Waiting for PT. Has developed a schedule for when she'll get out of bed. Discussed removing catheter but she's not ready for that. Told her we'd plan on it tomorrow and use purewick if needed. Objective Exam Vital Signs Vital Signs Date Time Temp Pulse Resp B/P (MAP) Pulse Ox O2 Delivery O2 Flow Rate FiO2 02/10/23 08:00 High Flow N/C 4.00 02/10/23 07:44 84 02/10/23 07:41 37.3 82 20 114/59 (77) 02/09/23 18:23 50 Capillary Refill : Less Than 3 Seconds General Appearance: No Apparent Distress, Chronically ill, Thin Respiratory: Lungs Clear, No Accessory Muscle Use, No Respiratory Distress Cardiovascular: Regular Rate, Rhythm, No Murmur Neurologic/Psychiatric: Alert, Oriented x3 Results/Procedures Lab Laboratory Tests 02/10/23 05:25 Patient resulted labs reviewed. Imaging: Reviewed Imaging Report Assessment/Plan Assessment and Plan Assess & Plan/Chief Complaint Acute on chronic respiratory failure with hypoxia Metastatic lung cancer COPD Cachexia Pain of metastatic malignancy HTN HLD GERD Weaned down to 4lpm HFNC Continue oral steroids LTACH denied by insurance after 2 peer to peers and 2 appeals PT/OT DVT ppx: Lovenox Sepsis due to pneumonia, resolved RONEN PÉREZ MD Feb 10, 2023 10:57
--- NOTE | 2023-02-10 11:34 | Physical Therapy Daily Note ---
PT Daily Note-Current Subjective Patient lying supine in bed upon PT arrival, agreeable to treatment. Rates pain at 0/10 currently. Pain Section J - Health Conditions 1. Rarely or not at all 2. Occasionally 3. Frequently 4. Almost constantly 8. Unable to answer Pain Effect on Sleep: 1 Pain Interference with Therapy: 1 Pain Interference w/Day-to-Day: 1 Transfers SCALE: Activities may be completed with or without assistive devices. 3-Idbddxtyha-pxfosjo completes the activity by him/herself with no assistance from a helper. 5-Set-up or Clean-up Assistance-helper sets up or cleans up; patient completes activity. [place] assists only prior to or following the activity. 4-Supervision or Touching Assistance-helper provides verbal cues and/or touching/steadying and/or contact guard assistance as patient completes activity. Assistance may be provided throughout the activity or intermittently. 3-Partial/Moderate Assistance-helper does LESS THAN HALF the effort. [place] lifts, holds or supports trunk or limbs, but provides less than half the effort. 2-Substantial/Maximal Assistance-helper does MORE THAN HALF the effort. [place] lifts or holds trunk or limbs and provides more than half the effort. 6-Shxwqwdpq-fhxeca does ALL the effort. Patient does none of the effort to complete the activity. Or, the assistance of 2 or more helpers is required for the patient to complete the activity. If activity was not attempted, code reason: 7-Patient Refused. 9-Not Applicable-not attempted and the patient did not perform the activity before the current illness, exacerbation or injury. 10-Not Attempted due to Environmental Limitations-(lack of equipment, weather restraints, etc.). 88-Not Attempted due to Medical Conditions or Safety Concerns. Roll Left & Right (QC): 6 Sit to Lying (QC): 6 Lying to Sitting/Side of Bed(Q: 6 Sit to Stand (QC): 6 Chair/Mep-gq-Dsubl Xfer(QC): 4 Gait Training Does the Patient Walk?: Yes Distance: 100 feet Walk 10 feet (QC): 4 Walk 50 ft with 2 Turns(QC): 4 Gait Assistive Device: FWW Assessment Current Status: Fair Progress Patient tolerated treatment well. Reports she is very scared of falling. Patient performs all bed mobility and transfers with SBA/[place]. Patient ambulates 100 feet with FWW with CGA and verbal cues for safety, progression, posture and conservation of energy. Patient in chair post treatment with all needs met, nursing notified and call light in hand. PT Checkroom Attendant Goals Checkroom Attendant Goals PT Group Home Goals Time Frame: Feb 10, 2023 Roll Left & Right (QC): 6 Sit to Lying (QC): 6 Lying-Sitting on Side/Bed(QC): 6 Sit to Stand (QC): 6 Chair/Lux-lq-Zfzxg Xfer(QC): 6 Walk 10 feet (QC): 6 Walk 50ft with 2 Turns (QC): 6 PT Plan Treatment/Plan Treatment Plan: Continue Plan of Care Treatment Plan: Education, Functional Activity Andra, Functional Strength, Gait, Safety, Therapeutic Exercise, Transfers Treatment Duration: Feb 10, 2023 Frequency: 6 times per week Estimated Hrs Per Day: .25 hour per day Patient and/or Family Agrees t: Yes Safety Risks/Education Patient Education: Gait Training, Transfer Techniques Teaching Recipient: Patient Teaching Methods: Demonstration, Discussion Response to Teaching: Verbalize Understanding, Return Demonstration Time Time In: 1011 Time Out: 1025 DATE: Feb 10, 2023 Total Billed Treatment Time: 14 Total Billed Treatment Visit, Gait LUPE WETZEL PT Feb 10, 2023 11:34
[2023-02-10 11:42] VITALS: BP 132/67
[2023-02-10] MEDS: PANTOPRAZOLE 40 MG (PROTONIX) TAB PO SCH (11:44)
[2023-02-10] MEDS: ENOXAPARIN 40 MG/0.4 ML (LOVENOX) SYR SC SCH (11:45)
[2023-02-10 16:02] VITALS: BP 136/68
[2023-02-10 19:49] VITALS: BP 109/69
[2023-02-10] MEDS: MELATONIN 3 MG TABLET PO SCH (20:08)
[2023-02-10] MEDS: ROSUVASTATIN 20 MG (CRESTOR) TABLET PO SCH (20:08)
[2023-02-11] VITALS (7 sets, daily range): BP systolic 101–119; BP diastolic 58–65
[2023-02-11] MEDS: RT-ALBUTEROL HFA 8.5 GM INHALER IH SCH ×5 (02:26→21:47)
[2023-02-11] MEDS: predniSONE 20 MG TAB PO SCH (05:38)
[2023-02-11] MEDS: morphine ER 15 MG (MS CONTIN) TAB PO SCH ×3 (05:38→21:35)
[2023-02-11 06:00] LABS: ALBUMIN 2.3 GM/DL (3.2-4.5); POTASSIUM 4.2 MMOL/L (3.6-5.0)
[2023-02-11 06:01] LABS: CALCIUM 7.6 MG/DL (8.5-10.1)
[2023-02-11 06:02] LABS: TOTAL PROTEIN 3.8 GM/DL (6.4-8.2)
[2023-02-11 06:04] LABS: BILIRUBIN,TOTAL 0.3 MG/DL (0.1-1.0)
[2023-02-11 06:06] LABS: CREATININE SERUM 0.87 MG/DL (0.60-1.30)
[2023-02-11 06:09] LABS: MAGNESIUM 1.7 MG/DL (1.6-2.4)
[2023-02-11] MEDS: POTASSIUM CL 10MEQ/50ML IVPB 50 ML IV SCH (06:13)
[2023-02-11] MEDS: KCL 20 MEQ TAB (K-DUR) PO SCH (06:13)
[2023-02-11] MEDS: MAGNESIUM 1 GM/100 ML IVPB 100 ML IV SCH ×5 (06:15→09:51)
[2023-02-11] MEDS: CATHETER FLUSH 10 ML SYR IVP SCH ×3 (06:41→20:23)
[2023-02-11] MEDS: amLODIPine 5 MG (NORVASC) TAB PO SCH (09:25)
[2023-02-11] MEDS: meTOprolol TARTRATE 50 MG (LOPRESSOR) TAB PO SCH ×2 (09:25→20:23)
[2023-02-11] MEDS: lisINopril 20 MG (PRINIVIL) TABLET PO SCH (09:25)
[2023-02-11] MEDS: NICOTINE 7 MG (NICODERM) PATCH TD SCH (09:26)
[2023-02-11] MEDS: FOLIC ACID 1 MG TAB PO SCH (09:26)
[2023-02-11] MEDS: NICOTINE PATCH REMOVAL TP SCH (09:31)
--- NOTE | 2023-02-11 10:24 | Progress Note - Hospitalist ---
Subjective HPI/CC On Admission Date Seen by Provider: Feb 11, 2023 Lyndsey Sosa is a 72 year old female with PMH metastatic lung cancer on chemotherapy, chemotherapy induced pancytopenia, COPD, HTN, HLD, GERD, cachexia, who presented with shortness of breath. She has been having fevers. She denies cough. She has been on outpatient antibiotics but was not improving. She denies chest pain. She denies abdominal pain. She denies nausea and vomiting. She last had chemotherapy about one week ago. Subjective/Events-last exam Pt reports feeling well. No complaints. Breathing improving. Objective Exam Vital Signs Vital Signs Date Time Temp Pulse Resp B/P (MAP) Pulse Ox O2 Delivery O2 Flow Rate FiO2 02/11/23 08:00 High Flow N/C 3.00 94 02/11/23 07:52 36.5 80 20 101/58 (72) 91 Capillary Refill : Less Than 3 Seconds General Appearance: No Apparent Distress, Chronically ill, Thin Respiratory: Lungs Clear, No Respiratory Distress Cardiovascular: Regular Rate, Rhythm, No Murmur Neurologic/Psychiatric: Alert, Oriented x3 Results/Procedures Lab Laboratory Tests 02/11/23 05:45 Patient resulted labs reviewed. Imaging: Reviewed Imaging Report Assessment/Plan Assessment and Plan Assess & Plan/Chief Complaint Acute on chronic respiratory failure with hypoxia Metastatic lung cancer COPD Cachexia Pain of metastatic malignancy HTN HLD GERD Weaned down to 3lpm HFNC Continue oral steroids- start taper LTACH denied by insurance after 2 peer to peers and 2 appeals PT/OT SW for discharge planning this week DVT ppx: Lovenox Sepsis due to pneumonia, resolved RONEN PÉREZ MD Feb 11, 2023 10:24 am
[2023-02-11] MEDS: ONDANSETRON 4 MG/2 ML (SDV) Z0FRAN IV PRN (11:41)
[2023-02-11] MEDS: PANTOPRAZOLE 40 MG (PROTONIX) TAB PO SCH (12:19)
[2023-02-11] MEDS: ENOXAPARIN 40 MG/0.4 ML (LOVENOX) SYR SC SCH (13:39)
[2023-02-11] MEDS: LORazepam 0.5 MG (ATIVAN) TABLET PO PRN ×2 (16:11→20:23)
[2023-02-11] MEDS: ROSUVASTATIN 20 MG (CRESTOR) TABLET PO SCH (20:23)
[2023-02-11] MEDS: MELATONIN 3 MG TABLET PO SCH (20:23)
[2023-02-12] MEDS: RT-ALBUTEROL HFA 8.5 GM INHALER IH SCH ×3 (02:15→10:47)
[2023-02-12 03:46] VITALS: BP 124/69
[2023-02-12 05:28] LABS: ALBUMIN 2.2 GM/DL (3.2-4.5)
[2023-02-12 05:29] LABS: POTASSIUM 3.9 MMOL/L (3.6-5.0)
[2023-02-12 05:30] LABS: CALCIUM 7.5 MG/DL (8.5-10.1)
[2023-02-12 05:31] LABS: TOTAL PROTEIN 3.6 GM/DL (6.4-8.2)
[2023-02-12 05:33] LABS: BILIRUBIN,TOTAL 0.3 MG/DL (0.1-1.0)
[2023-02-12 05:35] LABS: CREATININE SERUM 1.12 MG/DL (0.60-1.30)
[2023-02-12 05:38] LABS: MAGNESIUM 1.9 MG/DL (1.6-2.4)
[2023-02-12] MEDS: MAGNESIUM 1 GM/100 ML IVPB 100 ML IV SCH ×3 (05:45→06:55)
[2023-02-12] MEDS: POTASSIUM CL 10MEQ/50ML IVPB 50 ML IV SCH (05:45)
[2023-02-12] MEDS: KCL 20 MEQ TAB (K-DUR) PO SCH (05:46)
[2023-02-12] MEDS: CATHETER FLUSH 10 ML SYR IVP SCH ×2 (06:05→08:36)
[2023-02-12] MEDS: morphine ER 15 MG (MS CONTIN) TAB PO SCH ×2 (06:06→13:44)
[2023-02-12 07:59] VITALS: BP 123/65
[2023-02-12] MEDS ORDERED: KCL 20 MEQ TAB (K-DUR) PO ONE (08:00)
[2023-02-12] MEDS: amLODIPine 5 MG (NORVASC) TAB PO SCH (08:28)
[2023-02-12] MEDS: NICOTINE 7 MG (NICODERM) PATCH TD SCH (08:29)
[2023-02-12] MEDS: lisINopril 20 MG (PRINIVIL) TABLET PO SCH (08:29)
[2023-02-12] MEDS: ACETAMINOPHEN 500 MG TAB (TYLENOL) PO PRN (08:29)
[2023-02-12] MEDS: meTOprolol TARTRATE 50 MG (LOPRESSOR) TAB PO SCH (08:29)
[2023-02-12] MEDS: FOLIC ACID 1 MG TAB PO SCH (08:29)
[2023-02-12] MEDS: NICOTINE PATCH REMOVAL TP SCH (08:33)
[2023-02-12] MEDS ORDERED: predniSONE 10 MG TAB PO SCH (09:00)
--- NOTE | 2023-02-12 11:04 | Physical Therapy Progress Note ---
Therapy Progress Note Patient refused PT on this date and said she is going home. No one can confirm this. PT attempted to educate patient on importance of participate with PT to improve pulmonary functional and functional mobility, however, patient continued to refuse PT. SW notified. 1 ref ELISSA VALLE PT Feb 12, 2023 11:04
--- NOTE | 2023-02-12 11:37 | Occ Therapy Progress Note ---
Therapy Progress Note Pt discharging to swing bed at this time SARITHA GARCES OT Feb 12, 2023 11:37
[2023-02-12] MEDS: PANTOPRAZOLE 40 MG (PROTONIX) TAB PO SCH (11:51)
[2023-02-12 11:54] VITALS: BP 94/60
[2023-02-12] MEDS ORDERED: ENOXAPARIN INJECTION 30 MG/0.3 ML SYR SC SCH (12:00)
[2023-02-12] MEDS: LORazepam 0.5 MG (ATIVAN) TABLET PO PRN (13:41)
--- NOTE | 2023-02-12 17:14 | Discharge Summary ---
Discharge Summary Hospital Course Problems/Dx: (1) Sepsis due to pneumonia Status: Acute (2) Acute on chronic respiratory failure with hypoxia Status: Acute (3) Metastatic lung cancer (metastasis from lung to other site) Status: Acute Qualifiers: Qualified Codes: C34.90 - Malignant neoplasm of unspecified part of unspecified bronchus or lung (4) Pancytopenia due to chemotherapy Status: Acute (5) COPD (chronic obstructive pulmonary disease) Status: Chronic Qualifiers: Qualified Codes: J44.1 - Chronic obstructive pulmonary disease with (acute) exacerbation (6) Pulmonary cachexia due to COPD Status: Chronic (7) HTN (hypertension) Status: Chronic (8) GERD (gastroesophageal reflux disease) Status: Chronic (9) Pain of metastatic malignancy Status: Chronic (10) HLD (hyperlipidemia) Status: Chronic Hospital Course Date of Admission: Jan 17, 2023 at 22:44 Admission Diagnosis : Sepsis due to pneumonia Family Physician/Provider: Oscar Garnett MD Date of Discharge: 02/12/23 Discharge Diagnosis: Sepsis due to pneumonia, acute on chronic respiratory failure with hypoxia, COPD with acute exacerbation Hospital Course: Lyndsey Sosa is a 72 year old female with PMH COPD on home oxygen, metastatic lung cancer on chemotherapy, who presented with shortness of breath and was admitted with sepsis due to pneumonia. She was treated with IV antibiotics. She also had acute on chronic respiratory failure with hypoxia. She was requiring Vapotherm and BiPAP. She required ICU level care. She was also treated for COPD exacerbation with steroids and breathing treatments. She had a prolonged hospital course due to her high oxygen requirements and difficulty weaning. She was eventually able to be weaned back down to her home oxygen level. She completed her antibiotics during her hospital stay. She was discharged on a steroid taper. She was debilitated and was discharged to swing bed for continued therapy and oxygen monitoring. Labs and Pending Lab Test: Laboratory Tests 02/12/23 05:15: Sodium Level 135, Potassium Level 3.9, Chloride Level 103, Carbon Dioxide Level 25, Anion Gap 7, Blood Urea Nitrogen 24H, Creatinine 1.12, Estimat Glomerular Filtration Rate 53, BUN/Creatinine Ratio 21, Glucose Level 90, Calcium Level 7.5L, Corrected Calcium 8.9, Magnesium Level 1.9, Total Bilirubin 0.3, Aspartate Amino Transf (AST/SGOT) 14, Alanine Aminotransferase (ALT/SGPT) 20, Alkaline Phosphatase 68, Total Protein 3.6L, Albumin 2.2L Microbiology 01/17/23 MRSA Screen - Final, Complete MRSA not isolated 01/17/23 Blood Culture - Final, Complete No growth Home Meds Active Reported Ventolin Hfa (Albuterol Sulfate) 1 Puff Puff 2 Puff INH Q4H PRN Multivitamin Gummies (Multivit-Minerals/Folic Acid) 200 Mcg Tab.chew 1 Ea PO DAILY Vitamin B-12 (Cyanocobalamin (Vitamin B-12)) 500 Mcg Tablet 500 Mcg PO DAILY Amlodipine Besylate 5 Mg Tablet 5 Mg PO DAILY Morphine Sulfate ER (Morphine Sulfate) 15 Mg Tablet.er 15 Mg PO Q8H Promethazine Tablet (Promethazine HCl) 25 Mg Tablet 25 Mg PO Q6H PRN Zithromax (Azithromycin) 250 Mg Tablet 250 Mg PO DAILY FILLED 01-14-2023 #6/ DAY SUPPLY Cefuroxime (Cefuroxime Axetil) 500 Mg Tablet 500 Mg PO BID FILLED 01-14-2023 #20 DAY SUPPLY Docusate Sodium 100 Mg Capsule 100 Mg PO TID Iprat-Albut 0.5-3(2.5) mg/3 ml (Ipratropium/Albuterol Sulfate) 0.5 Mg-3 Mg (2.5 Mg Base)/3 Ml Ampul.neb 3 Ml NEB Q4H PRN Pantoprazole Sodium 40 Mg Tablet.dr 40 Mg PO 1200 Lisinopril 40 Mg Tablet 20 Mg PO DAILY TAKES OF A 40MG TAB Folic Acid 1 Mg Tablet 1 Mg PO DAILY Oxycodone HCl 5 Mg Tablet 5 Mg PO Q4H PRN Metoprolol Tartrate 100 Mg Tablet 100 Mg PO BID Trelegy Ellipta 100-62.5-25 (Fluticasone/Umeclidin/Vilanter) 100-62.5 Blst.w.dev 1 Each IH 1200 Rosuvastatin Calcium 20 Mg Tablet 20 Mg PO HS Assessment/Pt Instructions Discharged to swing bed Discharge Planning: >30 minutes discharge planning Discharge Instructions Discharge Diet: No Restrictions Activity as Tolerated: Yes Discharge Physical Examination Vital Signs Vital Signs Date Time Temp Pulse Resp B/P (MAP) Pulse Ox O2 Delivery O2 Flow Rate FiO2 02/12/23 11:54 36.2 74 20 94/60 (71) 100 High Flow N/C 3.00 02/11/23 08:00 94 General Appearance: No Apparent Distress, Chronically ill, Cachetic Respiratory: Lungs Clear, No Respiratory Distress Cardiovascular: Regular Rate, Rhythm, No Murmur Gastrointestinal: Normal Bowel Sounds, Non Tender, Soft Extremity: Normal Inspection, No Pedal Edema Skin: Normal Color, Warm/Dry Neurologic/Psychiatric: Alert, Normal Mood/Affect Allergies: Coded Allergies: fentanyl (Verified Allergy, Intermediate, 09/03/22) hallucinations codeine (Verified Allergy, Unknown, ITCH/HIVES, 09/03/22) Copy Copies To 1: MONISHA MONTANO Discharge Summary Date of Admission Jan 17, 2023 at 22:44 Date of Discharge Feb 12, 2023 at 14:00 Discharge Date: Feb 12, 2023 Discharge Time: 14:00 Admission Diagnosis Sepsis due to pneumonia Consults/Procedures Consulations TeleICU Discharge Diagnosis Acute on chronic respiratory failure with hypoxia Metastatic lung cancer COPD with acute exacerbation Cachexia Pain of metastatic malignancy HTN HLD GERD Chemotherapy induced pancytopenia, resolved Sepsis due to pneumonia, resolved (1) Sepsis due to pneumonia Status: Acute (2) Acute on chronic respiratory failure with hypoxia Status: Acute (3) Metastatic lung cancer (metastasis from lung to other site) Status: Acute Qualifiers: Qualified Codes: C34.90 - Malignant neoplasm of unspecified part of unspecified bronchus or lung (4) Pancytopenia due to chemotherapy Status: Acute (5) COPD (chronic obstructive pulmonary disease) Status: Chronic Qualifiers: Qualified Codes: J44.1 - Chronic obstructive pulmonary disease with (acute) exacerbation (6) Pulmonary cachexia due to COPD Status: Chronic (7) HTN (hypertension) Status: Chronic (8) GERD (gastroesophageal reflux disease) Status: Chronic (9) Pain of metastatic malignancy Status: Chronic (10) HLD (hyperlipidemia) Status: Chronic FARA CAMPOS MD Feb 12, 2023 17:06
== END 2023-02-12 14:00 | disposition swing bed (61) | DRG 871 ==
LOC: EDUNIT# 20:56 → ER 20:57 → ICU 22:44 → 4TH 01-18 12:18 → ICU 01-20 16:27 → 4TH 02-02 15:07
PROVIDERS: ADMIT Internal Medicine; ATTEND Internal Medicine
PROC: 5A0945A Assistance with Respiratory Ventilation, 24-96 Consecutive Hours, High Flow/Velocity Cannula (ICD-10-PCS; principal; 2023-01-17)
PROC: 5A09457 Assistance with Respiratory Ventilation, 24-96 Consecutive Hours, Continuous Positive Airway Pressure (ICD-10-PCS; 2023-01-31)
DX: A41.9 Sepsis, unspecified organism (principal); D61.810 Antineoplastic chemotherapy induced pancytopenia; J18.9 Pneumonia, unspecified organism; J96.21 Acute and chronic respiratory failure with hypoxia; J96.22 Acute and chronic respiratory failure with hypercapnia; J44.1 Chronic obstructive pulmonary disease with (acute) exacerbation; J44.0 Chronic obstructive pulmonary disease with (acute) lower respiratory infection; R64 Cachexia; C34.90 Malignant neoplasm of unspecified part of unspecified bronchus or lung; C79.89 Secondary malignant neoplasm of other specified sites; Z66 Do not resuscitate; G89.3 Neoplasm related pain (acute) (chronic); K21.9 Gastro-esophageal reflux disease without esophagitis; I10 Essential (primary) hypertension; M54.9 Dorsalgia, unspecified; E78.00 Pure hypercholesterolemia, unspecified; Z85.828 Personal history of other malignant neoplasm of skin; Z85.72 Personal history of non-Hodgkin lymphomas; Z68.20 Body mass index [BMI] 20.0-20.9, adult
CPT/HCPCS: 36415; 71045; 80048; 80053; 82947; 83605; 83735; 83880; 84100; 84145; 85007; 85025; 85027; 85379; 87040; 87081; 93005; 94640; 94660; 94760; 96365

== ENCOUNTER 2023-02-12 11:34 | Inpatient (IN) | payer MEDICARE, MEDICAID ==
[~2023-02-12] VITALS: Ht 147 cm; Wt 44.0 kg
[~2023-02-12 11:34] MED LIST changes: +AZIT250T PO; +CEFU500T63 PO; +CYAN500T8 PO; +MULT200T12 PO; +RT-ALBUINH INH
[2023-02-12] MEDS ORDERED: ONDANSETRON 4 MG/2 ML (SDV) Z0FRAN IV PRN (14:15)
[2023-02-12] MEDS ORDERED: ACETAMINOPHEN 500 MG TAB (TYLENOL) PO PRN (14:15)
[2023-02-12] MEDS ORDERED: RT-ALBUTEROL/IPRATROPIUM 3 ML (DUONEB) VIAL INH PRN ×2 (14:15→15:15)
[2023-02-12] MEDS ORDERED: ENOXAPARIN INJECTION 30 MG/0.3 ML SYR SC SCH (14:15)
[2023-02-12] MEDS ORDERED: NS IV 500 ML 500 ML IV PRN (14:15)
--- NOTE | 2023-02-12 14:52 | Physical Therapy Evaluation ---
PT Evaluation-General Medical Diagnosis Admission Date 02/12/2023 Medical Diagnosis: Fever Onset Date: Jan 17, 2023 Therapy Diagnosis Therapy Diagnosis: Gait deficit, strength deficit Weight Bear Status Right Lower Extremity: Right Full Weight Bearing Left Lower Extremity: Left Full Weight Bearing Referral Physician: Dr. Platt Reason for Referral: Evaluation/Treatment Medical History Pertinent Medical History: COPD, HTN, Smoking Reviewed History: Yes Social History Home: [facility] Current Living Status: Alone Entry Into Home: Level Entry Prior Prior Level of Function SCALE: Activities may be completed with or without assistive devices. 3-Ostejvemfc-ivcbxat completes the activity by him/herself with no assistance from a helper. 5-Set-up or Clean-up Assistance-helper sets up or cleans up; patient completes activity. [place] assists only prior to or following the activity. 4-Supervision or Touching Assistance-helper provides verbal cues and/or touching/steadying and/or contact guard assistance as patient completes activity. Assistance may be provided throughout the activity or intermittently. 3-Partial/Moderate Assistance-helper does LESS THAN HALF the effort. [place] lifts, holds or supports trunk or limbs, but provides less than half the effort. 2-Substantial/Maximal Assistance-helper does MORE THAN HALF the effort. [place] lifts or holds trunk or limbs and provides more than half the effort. 7-Ejyvqluxj-bteljp does ALL the effort. Patient does none of the effort to com plete the activity. Or, the assistance of 2 or more helpers is required for the patient to complete the activity. If activity was not attempted, code reason: 7-Patient Refused. 9-Not Applicable-not attempted and the patient did not perform the activity before the current illness, exacerbation or injury. 10-Not Attempted due to Environmental Limitations-(lack of equipment, weather restraints, etc.). 88-Not Attempted due to Medical Conditions or Safety Concerns. Bed Mobility: 6 Transfers (B,C,W/C): 6 Gait: 6 Stairs: 6 PT Evaluation-Current Subjective Patient sitting in the chair upon PT arrival, agreeable to treatment. Patient rates pain at 0/10 Pain Section J - Health Conditions 1. Rarely or not at all 2. Occasionally 3. Frequently 4. Almost constantly 8. Unable to answer Pain Effect on Sleep: 1 Pain Interference with Therapy: 1 Pain Interference w/Day-to-Day: 1 Objective Patient Orientation: Person, Place, Time, Situation ROM/Strength ROM Lower Extremities WFLs bilaterally all planes. Strength Lower Extremities 3+/5 BLEs all planes Sensory Vision: Functional Hearing: Functional Sensation Right Lower Extremit: Intact Sensation Left Lower Extremity: Intact Transfers Roll Left & Right (QC): 6 Sit to Lying (QC): 6 Lying to Sitting/Side of Bed(Q: 6 Sit to Stand (QC): 4 Chair/Ian-mn-Bfdyr Xfer(QC): 4 Toilet Transfer (QC): 4 Car Transfer (QC): 88 Gait Does the Patient Walk?: Yes Mode of Locomotion: Walk Anticipated Mode of Locomotion: Walk Walk 10 feet (QC): 4 Walk 50 ft with 2 Turns(QC): 4 Walk 150 ft (QC): 4 Walking 10ft/uneven surface-QC: 88 Distance: 220 feet Gait Assistive Device: FWW Wheelchair Training Wheel 50 ft with 2 turns (QC): 88 Wheel 150 ft (QC): 88 Stairs 1 Step (curb) (QC): 88 4 Steps (QC): 88 12 Steps (QC): 88 Balance Sitting Static: Normal Sitting Dynamic: Normal Standing Static: Good Standing Dynamic: Fair Picking up an Object (QC): 88 Assessment/Needs Patient tolerated treatment well. Patient performed LE therapeutic exercise of AP, QS, GS, LAQs, Hip abduction/ adduction, marching x 20 each. Demonstrate [place] with all bed mobility and SBA with all observed transfers. Patient ambulates 220 feet with FWW, with SBA and verbal cues for posture, safety and conservation of energy. Patient in chair post treatment with all needs met, nursing notified, call light in hand. Rehab Potential: Fair PT Shift Nurse Manager Goals Shift Nurse Manager Goals PT Residential Goals Time Frame: Mar 17, 2023 Roll Left to Right (QC): 6 Sit to Lying (QC): 6 Lying-Sitting on Side/Bed(QC): 6 Sit to Stand (QC): 6 Chair/Nmj-dk-Qgnwh Xfer(QC): 6 Toilet/Commode Transfer (QC): 6 Car Transfer (QC): 6 Does the Patient Walk: Yes Walk 10 feet (QC): 6 Walk 10ft-Uneven Surface(QC): 6 Walk 50ft with 2 Turns (QC): 6 Walk 150 ft (QC): 4 Does the Pt use WC or Scooter?: No Wheel 50 feet with 2 turns (QC: 9 Wheel 150 feet: 9 1 Step (curb) (QC): 9 4 Steps (QC): 9 12 Steps (QC): 9 Picking up an Object (QC): 4 PT Plan Problem List Problem List: Activity Tolerance, Functional Strength, Safety, Balance, Gait, Transfer, Bed Mobility, ROM Treatment/Plan Treatment Plan: Continue Plan of Care Treatment Plan: Bed Mobility, Education, Functional Activity Andra, Functional Strength, Group Therapy, Gait, Safety, Therapeutic Exercise, Transfers Treatment Duration: Mar 17, 2023 Frequency: 6 times per week Estimated Hrs Per Day: .25 hour per day Patient and/or Family Agrees t: Yes Safety Risks/Education Patient Education: Gait Training, Transfer Techniques Teaching Recipient: Patient Teaching Methods: Demonstration, Discussion Response to Teaching: Verbalize Understanding, Return Demonstration Time Time In: 1408 Time Out: 1438 DATE: Feb 12, 2023 Total Billed Treatment Time: 30 Total Billed Treatment Visit, Solomon SILVESTRE JOHN A PT Feb 12, 2023 14:52
[2023-02-12] MEDS ORDERED: CATHETER FLUSH 10 ML SYR IVP PRN (15:00)
[2023-02-12 17:41] VITALS: BP 98/54
[2023-02-12] MEDS: RT-ALBUTEROL HFA 8.5 GM INHALER IH SCH ×2 (19:04→21:41)
[2023-02-12] MEDS: meTOprolol TARTRATE 50 MG (LOPRESSOR) TAB PO SCH (20:58)
[2023-02-12] MEDS: ROSUVASTATIN 20 MG (CRESTOR) TABLET PO SCH (20:58)
[2023-02-12] MEDS: LORazepam 0.5 MG (ATIVAN) TABLET PO PRN (20:59)
[2023-02-12] MEDS: CATHETER FLUSH 10 ML SYR IVP SCH (20:59)
[2023-02-12] MEDS: MELATONIN 3 MG TABLET PO SCH (20:59)
[2023-02-12] MEDS: morphine ER 15 MG (MS CONTIN) TAB PO SCH (20:59)
[2023-02-13] MEDS ORDERED: POTASSIUM CL 10MEQ/50ML IVPB 50 ML IV SCH (06:00)
[2023-02-13] MEDS ORDERED: KCL 20 MEQ TAB (K-DUR) PO SCH (06:00)
[2023-02-13] MEDS ORDERED: MAGNESIUM 1 GM/100 ML IVPB 100 ML IV SCH ×2 (06:00→06:15)
[2023-02-13 06:06] LABS: CALCIUM 7.6 MG/DL (8.5-10.1); CREATININE SERUM 0.9 MG/DL (0.60-1.30); MAGNESIUM 1.9 MG/DL (1.6-2.4); POTASSIUM 3.6 MMOL/L (3.6-5.0)
[2023-02-13] MEDS: morphine ER 15 MG (MS CONTIN) TAB PO SCH ×3 (06:16→20:57)
[2023-02-13] MEDS: CATHETER FLUSH 10 ML SYR IVP SCH ×3 (06:17→20:58)
[2023-02-13] MEDS: RT-ALBUTEROL HFA 8.5 GM INHALER IH SCH ×4 (07:01→19:32)
[2023-02-13 07:26] VITALS: BP 105/58
[2023-02-13] MEDS: NICOTINE 7 MG (NICODERM) PATCH TD SCH (07:54)
[2023-02-13] MEDS: FOLIC ACID 1 MG TAB PO SCH (07:54)
[2023-02-13] MEDS: predniSONE 10 MG TAB PO SCH (07:55)
[2023-02-13] MEDS: meTOprolol TARTRATE 50 MG (LOPRESSOR) TAB PO SCH ×2 (07:55→20:57)
[2023-02-13] MEDS: lisINopril 20 MG (PRINIVIL) TABLET PO SCH (07:56)
[2023-02-13] MEDS: PATCH REMOVAL TP SCH (07:56)
[2023-02-13] MEDS: amLODIPine 5 MG (NORVASC) TAB PO SCH (07:56)
[2023-02-13] MEDS ORDERED: KCL 20 MEQ TAB (K-DUR) PO ONE (08:00)
[2023-02-13] MEDS: LORazepam 0.5 MG (ATIVAN) TABLET PO PRN ×3 (10:10→20:57)
[2023-02-13] MEDS ORDERED: MAGNESIUM 1 GM/100 ML IVPB 100 ML IV NR (10:30)
--- NOTE | 2023-02-13 10:43 | Occupational Therapy Eval ---
OT Evaluation-General/PLF Medical Diagnosis Admission Date Feb 12, 2023 at 14:15 Medical Diagnosis: Fever Onset Date: Jan 17, 2023 Therapy Diagnosis Therapy Diagnosis: weakness Precautions Precautions/Isolations: Fall Prevention, Standard Precautions Weight Bear Status Weight Bearing Restriction: Full Weight Bearing Referral Physician: Dr. Platt Referral Reason: Activity Tolerance, Self Care, Evaluation/Treatment, Strengthening/ROM Medical History Pertinent Medical History: COPD, HTN, Smoking Additional Medical History Transfer from ICU to medical floor and transition to [facility] for further therapy. Current History Cancer and 02 Social History Home: [place] Current Living Status: Alone Entry Into Home: Level Entry ADL-Prior Level of Function SCALE: Activities may be completed with or without assistive devices. 0-Sgzbdutfxv-qaepeej completes the activity by him/herself with no assistance from a helper. 5-Set-up or Clean-up Assistance-helper sets up or cleans up; patient completes activity. [place] assists only prior to or following the activity. 4-Supervision or Touching Assistance-helper provides verbal cues and/or touching/steadying and/or contact guard assistance as patient completes activity. Assistance may be provided throughout the activity or intermittently. 3-Partial/Moderate Assistance-helper does LESS THAN HALF the effort. [place] lifts, holds or supports trunk or limbs, but provides less than half the effort. 2-Substantial/Maximal Assistance-helper does MORE THAN HALF the effort. [place] lifts or holds trunk or limbs and provides more than half the effort. 0-Kkdjxkbgj-hudacv does ALL the effort. Patient does none of the effort to complete the activity. Or, the assistance of 2 or more helpers is required for the patient to complete the activity. If activity was not attempted, code reason: 7-Patient Refused. 9-Not Applicable-not attempted and the patient did not perform the activity before the current illness, exacerbation or injury. 10-Not Attempted due to Environmental Limitations-(lack of equipment, weather restraints, etc.). 88-Not Attempted due to Medical Conditions or Safety Concerns. ADL PLOF Comments PLOF pre admission completed ADL modified independently, In hospital completes CGA/SBA w/ ADs and VCs for breathing, use of ADS, and safety. Self Care: Independent Functional Cognition: Independent DME/Equipment: Grab Bars, Shower Drive Self: No OT Current Status Subjective Swing bed education provided to patient, patient agrees to OT. Mental Status/Objective Patient Orientation: Person, Place, Time, Situation Attachments: Oxygen (3-4 liters NC) Current Upper Extremity ROM BUE WFLs Upper Extremity Coordination Intact Upper Extremity Sensation Intact Upper Extremity Strength -4/5 BUE grossly ADL-Treatment Eating (QC): 6 Oral Hygiene (QC): 5 Shower/Bathe Self (QC): 7 (declined and asks for family to assist with shower later time) Upper Body Dressing (QC): 5 Lower Body Dressing (QC): 4 On/Off Footwear (QC): 4 Toileting Hygiene (QC): 4 Education OT Patient Education: Correct positioning, Energy conservation, Modified ADL techniques, Progress toward Goal/Update tx plan, Purpose of tx/functional activities, Reviewed precautions, Rehab process, Safety issues, Transfer techniques, Use of adapted equipment Teaching Recipient: Patient Teaching Methods: Demonstration, Discussion Response to Teaching: Verbalize Understanding, Reinforcement Needed BIMS CAM BIMS Expression of Ideas and Wants: Without Difficulty Understanding Verbal Content: Understands Brief Interview/Mental Status: No IRF SOLITARIO BIMS: IRF SOLITARIO BIMS Response (Comments) Value Repitition of Three Words Three 3 Recalls Socks Yes, No Cue Required 2 Recalls Blue Yes, No Cue Required 2 Recalls Bed Yes, No Cue Required 2 Year Correct 3 Month Accurate Within 5 Days 2 Day Correct 1 Total 15 Patient Normally Able to Recal: Current Session, Location of own room (4th floor), Staff Names and faces, That he/she in a hsp Should Staff Asses. Mental St.: No OT Residential Goals Residential Goals Oral Hygiene (QC): 6 Toileting Hygiene (QC): 6 Shower/Bathe Self (QC): 5 Upper Body Dressing (QC): 6 Lower Body Dressing (QC): 6 On/Off Footwear (QC): 6 1=Demonstrate adherence to instructed precautions during ADL tasks. 2=Patient will verbalize/demonstrate understanding of assistive devices/modifications for ADL. 3=Patient will improve strength/tolerance for activity to enable patient to perform ADL's. OT Education/Plan Problem List/Assessment Assessment: Decreased Activ Tolerance, Decreased UE Strength, Impaired I ADL's, Impaired Self-Care Skills Discharge Recommendations Plan/Recommendations: Continue POC Treatment Plan/Plan of Care Treatment,Training & Education: Yes Patient would benefit from OT for education, treatment and training to promote independence in ADL's, mobility, safety and/or upper extremity function for ADL's. Plan of Care: ADL Retraining, Functional Mobility, Group Exercise/Act as Ind, UE Funct Exercise/Act Treatment Duration: Feb 17, 2023 Frequency: 3 times per week (3-5 times/ week) Estimated Hrs Per Day: .25 hour per day Agreement: Yes Rehab Potential: Fair Time Start Time: 09:20 Stop Time: 09:50 DATE: Feb 13, 2023 Total Time Billed (hr/min): 30 Billed Treatment Time 1 visit, CLEVE, EX 1 30 minutes TREVOR SILVERMAN OT Feb 13, 2023 10:43
[2023-02-13] MEDS: ENOXAPARIN INJECTION 30 MG/0.3 ML SYR SC SCH (11:03)
[2023-02-13] MEDS: PANTOPRAZOLE 40 MG (PROTONIX) TAB PO SCH (11:03)
--- NOTE | 2023-02-13 11:26 | Physical Therapy Daily Note ---
PT Daily Note-Current Subjective Patient agrees to PT. Pain Section J - Health Conditions 1. Rarely or not at all 2. Occasionally 3. Frequently 4. Almost constantly 8. Unable to answer Pain Effect on Sleep: 1 Pain Interference with Therapy: 1 Pain Interference w/Day-to-Day: 1 Mental Status Patient Orientation: Normal For Age Attachments: Oxygen (3-4L NC HF) Transfers SCALE: Activities may be completed with or without assistive devices. 2-Fzmvalpals-ltfumwn completes the activity by him/herself with no assistance from a helper. 5-Set-up or Clean-up Assistance-helper sets up or cleans up; patient completes activity. [place] assists only prior to or following the activity. 4-Supervision or Touching Assistance-helper provides verbal cues and/or touching/steadying and/or contact guard assistance as patient completes activity. Assistance may be provided throughout the activity or intermittently. 3-Partial/Moderate Assistance-helper does LESS THAN HALF the effort. [place] lifts, holds or supports trunk or limbs, but provides less than half the effort. 2-Substantial/Maximal Assistance-helper does MORE THAN HALF the effort. [place] lifts or holds trunk or limbs and provides more than half the effort. 3-Kanmcuxga-coinoo does ALL the effort. Patient does none of the effort to complete the activity. Or, the assistance of 2 or more helpers is required for the patient to complete the activity. If activity was not attempted, code reason: 7-Patient Refused. 9-Not Applicable-not attempted and the patient did not perform the activity before the current illness, exacerbation or injury. 10-Not Attempted due to Environmental Limitations-(lack of equipment, weather restraints, etc.). 88-Not Attempted due to Medical Conditions or Safety Concerns. Sit to Stand (QC): 4 Chair/Mij-wr-Yidfn Xfer(QC): 4 Toilet Transfer (QC): 4 Patient requested toilet use for BM Weight Bearing Right Lower Extremity: Right Full Weight Bearing Left Lower Extremity: Left Full Weight Bearing Gait Training Distance: 300' Walk 10 feet (QC): 4 Walk 50 ft with 2 Turns(QC): 4 Walk 150 ft (QC): 4 Gait Assistive Device: FWW SBA/slow, steady gait sequence with 3 standing recovery periods due to SOA with SAO2 >90% on 4L NC HF with activity. Exercises Seated Therapy Exercises: Ankle pumps, Long arc quads Seated Reps: 15 Assessment Patient progressing with treatment plan and is currently SBA with all functional mobility with improved distance with ambulation. PT to continue to increase activity as tolerated by patient. PT Coloring Checker Goals Correction Goals PT Correction Goals Time Frame: Mar 17, 2023 Roll Left & Right (QC): 6 Sit to Lying (QC): 6 Lying-Sitting on Side/Bed(QC): 6 Sit to Stand (QC): 6 Chair/Zjq-ia-Hmzbf Xfer(QC): 6 Toilet Transfer (QC): 6 Car Transfer (QC): 6 Does the Patient Walk: Yes Walk 10 feet (QC): 6 Walk 50ft with 2 Turns (QC): 6 Walk 150 ft (QC): 4 Walking 10ft on Uneven Surface: 6 1 Step (curb) (QC): 9 4 Steps (QC): 9 12 Steps (QC): 9 Picking up an Object (QC): 4 Does the Pt use WC or Scooter?: No Wheel 50 feet with 2 turns (QC: 9 Wheel 150 feet: 9 PT Plan Treatment/Plan Treatment Plan: Continue Plan of Care Treatment Plan: Bed Mobility, Education, Functional Activity Andra, Functional Strength, Group Therapy, Gait, Safety, Therapeutic Exercise, Transfers Treatment Duration: Mar 17, 2023 Frequency: 6 times per week Estimated Hrs Per Day: .25 hour per day Patient and/or Family Agrees t: Yes Time Time In: 1100 Time Out: 1123 DATE: Feb 13, 2023 Total Billed Treatment Time: 23 Total Billed Treatment 1 visit FA x 2 23 min ELISSA VALLE PT Feb 13, 2023 11:26
[2023-02-13 19:46] VITALS: BP 138/73
[2023-02-13] MEDS: MELATONIN 3 MG TABLET PO SCH (20:56)
[2023-02-13] MEDS: ROSUVASTATIN 20 MG (CRESTOR) TABLET PO SCH (20:56)
[2023-02-14] MEDS: CATHETER FLUSH 10 ML SYR IVP SCH ×3 (06:30→21:46)
[2023-02-14] MEDS: morphine ER 15 MG (MS CONTIN) TAB PO SCH ×3 (06:30→21:46)
[2023-02-14] MEDS: RT-ALBUTEROL HFA 8.5 GM INHALER IH SCH ×4 (07:16→19:12)
[2023-02-14] MEDS: NICOTINE 7 MG (NICODERM) PATCH TD SCH (08:10)
[2023-02-14] MEDS: LORazepam 0.5 MG (ATIVAN) TABLET PO PRN ×3 (08:10→18:39)
[2023-02-14] MEDS: meTOprolol TARTRATE 50 MG (LOPRESSOR) TAB PO SCH ×2 (08:11→21:46)
[2023-02-14] MEDS: FOLIC ACID 1 MG TAB PO SCH (08:11)
[2023-02-14] MEDS: lisINopril 20 MG (PRINIVIL) TABLET PO SCH (08:11)
[2023-02-14] MEDS: predniSONE 10 MG TAB PO SCH (08:11)
[2023-02-14] MEDS: amLODIPine 5 MG (NORVASC) TAB PO SCH (08:11)
[2023-02-14] MEDS: PATCH REMOVAL TP SCH (08:12)
[2023-02-14 08:30] VITALS: BP 116/71
[2023-02-14] MEDS ORDERED: SIMETHICONE 80 MG (MYLICON) CHEW PO PRN (08:30)
[2023-02-14] MEDS ORDERED: SIMETHICONE 80 MG (MYLICON) CHEW PO NR (09:00)
--- NOTE | 2023-02-14 11:03 | Progress Note - Hospitalist ---
Subjective HPI/CC On Admission Date Seen by Provider: Feb 14, 2023 Time Seen by Provider: 09:40 Subjective/Events-last exam She was having gas pains this morning. She is feeling better now. She denies shortness of breath. She has been working with therapy. Objective Exam Vital Signs Vital Signs Date Time Temp Pulse Resp B/P (MAP) Pulse Ox O2 Delivery O2 Flow Rate FiO2 02/14/23 08:30 36.4 75 20 116/71 (86) 90 High Flow N/C 3.00 Capillary Refill : General Appearance: No Apparent Distress, Chronically ill, Thin Respiratory: Lungs Clear, No Respiratory Distress Cardiovascular: Regular Rate, Rhythm, No Murmur Gastrointestinal: Normal Bowel Sounds, Soft Extremity: Normal Inspection, No Pedal Edema Neurologic/Psychiatric: Alert, Normal Mood/Affect Skin: Normal Color, Warm/Dry Results/Procedures Lab Patient resulted labs reviewed. Assessment/Plan Assessment and Plan Assess & Plan/Chief Complaint COPD with acute exacerbation Chronic respiratory failure with hypoxia Metastatic lung cancer Cachexia Pain of metastatic malignancy HTN HLD GERD Debility Supplemental oxygen as needed, at baseline 3 L Steroid taper PT/OT Likely discharge Sunday home with home health DVT ppx: Lovenox Diagnosis/Problems Diagnosis/Problems (1) Chronic respiratory failure with hypoxia Status: Acute (2) COPD (chronic obstructive pulmonary disease) Status: Acute Qualifiers: COPD type: COPD with acute exacerbation Qualified Codes: J44.1 - Chronic obstructive pulmonary disease with (acute) exacerbation (3) Metastatic lung cancer (metastasis from lung to other site) Status: Acute (4) Pain of metastatic malignancy Status: Chronic (5) Debility Status: Acute FARA CAMPOS MD Feb 14, 2023 11:03
--- NOTE | 2023-02-14 11:19 | Physical Therapy Daily Note ---
PT Daily Note-Current Subjective Patient right sidelying in bed upon PT arrival, agreeable to treatment. Reports her stomach has been distended and very painful this am. Rates pain at "50/10" in her abdomen. Pain Section J - Health Conditions 1. Rarely or not at all 2. Occasionally 3. Frequently 4. Almost constantly 8. Unable to answer Pain Effect on Sleep: 1 Pain Interference with Therapy: 1 Pain Interference w/Day-to-Day: 1 Mental Status Patient Orientation: Person Transfers SCALE: Activities may be completed with or without assistive devices. 3-Ggciibblap-nmfqiob completes the activity by him/herself with no assistance from a helper. 5-Set-up or Clean-up Assistance-helper sets up or cleans up; patient completes activity. [place] assists only prior to or following the activity. 4-Supervision or Touching Assistance-helper provides verbal cues and/or touching/steadying and/or contact guard assistance as patient completes activity. Assistance may be provided throughout the activity or intermittently. 3-Partial/Moderate Assistance-helper does LESS THAN HALF the effort. [place] lifts, holds or supports trunk or limbs, but provides less than half the effort. 2-Substantial/Maximal Assistance-helper does MORE THAN HALF the effort. [place] lifts or holds trunk or limbs and provides more than half the effort. 2-Tqeoydtoo-rdfaix does ALL the effort. Patient does none of the effort to complete the activity. Or, the assistance of 2 or more helpers is required for the patient to complete the activity. If activity was not attempted, code reason: 7-Patient Refused. 9-Not Applicable-not attempted and the patient did not perform the activity before the current illness, exacerbation or injury. 10-Not Attempted due to Environmental Limitations-(lack of equipment, weather restraints, etc.). 88-Not Attempted due to Medical Conditions or Safety Concerns. Roll Left & Right (QC): 6 Sit to Lying (QC): 6 Lying to Sitting/Side of Bed(Q: 6 Sit to Stand (QC): 4 Chair/Dkh-hd-Cnxqu Xfer(QC): 4 Toilet Transfer (QC): 4 Weight Bearing Right Lower Extremity: Right Full Weight Bearing Left Lower Extremity: Left Full Weight Bearing Gait Training Does the Patient Walk?: Yes Distance: 250 feet Walk 10 feet (QC): 4 Walk 50 ft with 2 Turns(QC): 4 Walk 150 ft (QC): 4 Gait Persons Needed: 1 Gait Assistive Device: FWW Assessment Current Status: Poor Progress Patient performs all bed mobility with [place] and transfers with SBA to [place]. Patieny ambulates 250 feet with FWW with SBA. Patient appears to be able to ambulate further but she requests to return to room due to increasing abdomen pain. Patient in bed post treatment with all needs met, nursing notified, call light in reach. PT Sampler And Test Preparer Goals Sampler And Test Preparer Goals PT Residential Goals Time Frame: Mar 17, 2023 Roll Left & Right (QC): 6 Sit to Lying (QC): 6 Lying-Sitting on Side/Bed(QC): 6 Sit to Stand (QC): 6 Chair/Raq-ug-Odhvx Xfer(QC): 6 Toilet Transfer (QC): 6 Car Transfer (QC): 6 Does the Patient Walk: Yes Walk 10 feet (QC): 6 Walk 50ft with 2 Turns (QC): 6 Walk 150 ft (QC): 4 Walking 10ft on Uneven Surface: 6 1 Step (curb) (QC): 9 4 Steps (QC): 9 12 Steps (QC): 9 Picking up an Object (QC): 4 Does the Pt use WC or Scooter?: No Wheel 50 feet with 2 turns (QC: 9 Wheel 150 feet: 9 PT Plan Treatment/Plan Treatment Plan: Continue Plan of Care Treatment Plan: Bed Mobility, Education, Functional Activity Andra, Functional Strength, Group Therapy, Gait, Safety, Therapeutic Exercise, Transfers Treatment Duration: Mar 17, 2023 Frequency: 6 times per week Estimated Hrs Per Day: .25 hour per day Patient and/or Family Agrees t: Yes Safety Risks/Education Patient Education: Gait Training, Transfer Techniques Teaching Recipient: Patient Teaching Methods: Demonstration, Discussion Response to Teaching: Verbalize Understanding, Return Demonstration Time Time In: 1045 Time Out: 1056 DATE: Feb 14, 2023 Total Billed Treatment Time: 11 Total Billed Treatment Visit, LUPE Perez PT Feb 14, 2023 11:19
--- NOTE | 2023-02-14 11:47 | Occ Therapy Progress Note ---
Therapy Progress Note Patient declined OT d/t seen by PT this morning, agrees to REC Therapy card play. Agrees to OT in later afternoon TREVOR SILVERMAN OT Feb 14, 2023 11:47
[2023-02-14] MEDS: ENOXAPARIN INJECTION 30 MG/0.3 ML SYR SC SCH (12:28)
[2023-02-14] MEDS: PANTOPRAZOLE 40 MG (PROTONIX) TAB PO SCH (12:28)
--- NOTE | 2023-02-14 15:37 | Occupational Ther Daily Note ---
OT Current Status-Daily Note Subjective Up in chair recliner on OT arrival, prepared to ambulate in halls Mental Status/Objective Patient Orientation: Person, Situation Attachments: Oxygen (4 liters NC w. ambulation 3 liter resting) sustains 02 levels 88-92 with ambulation, requires 3 rest periods in 10 minutes of ambulation w/ FWW ADL-Treatment Therapy Code Descriptions/Definitions Functional [place] Measure: 0=Not Assessed/NA 4=Minimal Assistance 1=Total Assistance 5=Supervision or Setup 2=Maximal Assistance 6=Modified [place] 3=Moderate Assistance 7=Complete IndependenceSCALE: Activities may be completed with or without assistive devices. 9-Rtoyakavki-wdhbmjf completes the activity by him/herself with no assistance from a helper. 5-Set-up or Clean-up Assistance-helper sets up or cleans up; patient completes activity. [place] assists only prior to or following the activity. 4-Supervision or Touching Assistance-helper provides verbal cues and/or touching/steadying and/or contact guard assistance as patient completes activity. Assistance may be provided throughout the activity or intermittently. 3-Partial/Moderate Assistance-helper does LESS THAN HALF the effort. [place] lifts, holds or supports trunk or limbs, but provides less than half the effort. 2-Substantial/Maximal Assistance-helper does MORE THAN HALF the effort. [place] lifts or holds trunk or limbs and provides more than half the effort. 3-Sopexkgsw-xzurtd does ALL the effort. Patient does none of the effort to complete the activity. Or, the assistance of 2 or more helpers is required for the patient to complete the activity. If activity was not attempted, code reason: 7-Patient Refused. 9-Not Applicable-not attempted and the patient did not perform the activity before the current illness, exacerbation or injury. 10-Not Attempted due to Environmental Limitations-(lack of equipment, weather restraints, etc.). 88-Not Attempted due to Medical Conditions or Safety Concerns. ADLs not performed, focus on activity tolerance and PLB while performing tasks Education OT Patient Education: Energy conservation, Exercise program, Modified ADL techniques, Progress toward Goal/Update tx plan, Purpose of tx/functional activities, Safety issues, Use of adapted equipment Teaching Recipient: Patient Teaching Methods: Demonstration Response to Teaching: Return Demonstration OT Tile Installer Goals Alf Goals Oral Hygiene (QC): 6 Toileting Hygiene (QC): 6 Shower/Bathe Self (QC): 5 Upper Body Dressing (QC): 6 Lower Body Dressing (QC): 6 On/Off Footwear (QC): 6 1=Demonstrate adherence to instructed precautions during ADL tasks. 2=Patient will verbalize/demonstrate understanding of assistive devices/modifications for ADL. 3=Patient will improve strength/tolerance for activity to enable patient to perform ADL's. OT Education/Plan Problem List/Assessment Assessment: Decreased Activ Tolerance, Decreased UE Strength, Impaired Funct Balance (one LOB minimally when standing from reclner, no assistance needed to recover) Discharge Recommendations Plan/Recommendations: Continue POC Treatment Plan/Plan of Care Patient would benefit from OT for education, treatment and training to promote independence in ADL's, mobility, safety and/or upper extremity function for ADL's. Plan of Care: ADL Retraining, Functional Mobility, Group Exercise/Act as Ind, UE Funct Exercise/Act Treatment Duration: Feb 17, 2023 Frequency: 3 times per week (3-5 times/ week) Estimated Hrs Per Day: .25 hour per day Agreement: Yes Rehab Potential: Fair Return to recliner, all needs met, cell phon [facility] appraiser. Time Start Time: 15:20 Stop Time: 15:35 DATE: Feb 14, 2023 Total Time Billed (hr/min): 15 Billed Treatment Time FA 1 15 min TREVOR SILVERMAN OT Feb 14, 2023 15:37
[2023-02-14 19:35] VITALS: BP 106/59
[2023-02-14] MEDS: ROSUVASTATIN 20 MG (CRESTOR) TABLET PO SCH (21:45)
[2023-02-14] MEDS: MELATONIN 3 MG TABLET PO SCH (21:46)
[2023-02-15] MEDS: CATHETER FLUSH 10 ML SYR IVP SCH ×3 (05:52→20:28)
[2023-02-15] MEDS: morphine ER 15 MG (MS CONTIN) TAB PO SCH ×3 (05:52→22:18)
[2023-02-15] MEDS: FOLIC ACID 1 MG TAB PO SCH (08:33)
[2023-02-15] MEDS: predniSONE 10 MG TAB PO SCH (08:33)
[2023-02-15] MEDS: amLODIPine 5 MG (NORVASC) TAB PO SCH (08:34)
[2023-02-15] MEDS: meTOprolol TARTRATE 50 MG (LOPRESSOR) TAB PO SCH ×2 (08:34→20:28)
[2023-02-15] MEDS: LORazepam 0.5 MG (ATIVAN) TABLET PO PRN ×2 (08:35→15:56)
[2023-02-15] MEDS: lisINopril 20 MG (PRINIVIL) TABLET PO SCH (08:35)
[2023-02-15] MEDS: NICOTINE 7 MG (NICODERM) PATCH TD SCH (08:35)
[2023-02-15] MEDS: PATCH REMOVAL TP SCH (08:38)
[2023-02-15 08:44] VITALS: BP 117/66
--- NOTE | 2023-02-15 09:33 | Physical Therapy Daily Note ---
PT Daily Note-Current Subjective Patient agrees to PT. Pain Section J - Health Conditions 1. Rarely or not at all 2. Occasionally 3. Frequently 4. Almost constantly 8. Unable to answer Pain Effect on Sleep: 1 Pain Interference with Therapy: 1 Pain Interference w/Day-to-Day: 1 Mental Status Patient Orientation: Normal For Age Attachments: Oxygen (4L NC HF) Transfers SCALE: Activities may be completed with or without assistive devices. 6-Odwuukkxws-gygbpko completes the activity by him/herself with no assistance from a helper. 5-Set-up or Clean-up Assistance-helper sets up or cleans up; patient completes activity. [place] assists only prior to or following the activity. 4-Supervision or Touching Assistance-helper provides verbal cues and/or touching/steadying and/or contact guard assistance as patient completes activity. Assistance may be provided throughout the activity or intermittently. 3-Partial/Moderate Assistance-helper does LESS THAN HALF the effort. [place] lifts, holds or supports trunk or limbs, but provides less than half the effort. 2-Substantial/Maximal Assistance-helper does MORE THAN HALF the effort. [place] lifts or holds trunk or limbs and provides more than half the effort. 4-Dfgadflyw-stwmdt does ALL the effort. Patient does none of the effort to complete the activity. Or, the assistance of 2 or more helpers is required for the patient to complete the activity. If activity was not attempted, code reason: 7-Patient Refused. 9-Not Applicable-not attempted and the patient did not perform the activity before the current illness, exacerbation or injury. 10-Not Attempted due to Environmental Limitations-(lack of equipment, weather restraints, etc.). 88-Not Attempted due to Medical Conditions or Safety Concerns. Roll Left & Right (QC): 6 Sit to Lying (QC): 6 Lying to Sitting/Side of Bed(Q: 6 Sit to Stand (QC): 6 Chair/Bez-xo-Aqcgq Xfer(QC): 6 Toilet Transfer (QC): 6 Car Transfer (QC): 6 Weight Bearing Right Lower Extremity: Right Full Weight Bearing Left Lower Extremity: Left Full Weight Bearing Gait Training Distance: >400' Walk 10 feet (QC): 6 Walk 50 ft with 2 Turns(QC): 6 Walk 150 ft (QC): 6 Walking 10ft/uneven surface-QC: 6 Gait Assistive Device: FWW PT assist for O2 tank only Stair Training 1 Step (curb) (QC): 9 4 Steps (QC): 9 12 Steps (QC): 9 Balance Picking up an Object (QC): 6 Assessment Patient tolerated treatment well and has currently attained all functional goals. Patient is independent with all functional mobility and will dismiss to home with sister (per patient report) tomorrow. PT Project Manager Interior Design Goals Project Manager Interior Design Goals PT Project Manager Interior Design Goals Time Frame: Mar 17, 2023 Roll Left & Right (QC): 6 Sit to Lying (QC): 6 Lying-Sitting on Side/Bed(QC): 6 Sit to Stand (QC): 6 Chair/Itd-aa-Fpnif Xfer(QC): 6 Toilet Transfer (QC): 6 Car Transfer (QC): 6 Does the Patient Walk: Yes Walk 10 feet (QC): 6 Walk 50ft with 2 Turns (QC): 6 Walk 150 ft (QC): 4 Walking 10ft on Uneven Surface: 6 1 Step (curb) (QC): 9 4 Steps (QC): 9 12 Steps (QC): 9 Picking up an Object (QC): 4 Does the Pt use WC or Scooter?: No Wheel 50 feet with 2 turns (QC: 9 Wheel 150 feet: 9 PT Plan Treatment/Plan Treatment Plan: Continue Plan of Care Treatment Plan: Bed Mobility, Education, Functional Activity Andra, Functional Strength, Group Therapy, Gait, Safety, Therapeutic Exercise, Transfers Treatment Duration: Mar 17, 2023 Frequency: 6 times per week Estimated Hrs Per Day: .25 hour per day Patient and/or Family Agrees t: Yes Time Time In: 841 Time Out: 856 DATE: Feb 15, 2023 Total Billed Treatment Time: 15 Total Billed Treatment 1 visit FA 15 min ELISSA VALLE PT Feb 15, 2023 09:33
[2023-02-15] MEDS: RT-ALBUTEROL HFA 8.5 GM INHALER IH SCH ×3 (10:11→14:34)
[2023-02-15] MEDS: PANTOPRAZOLE 40 MG (PROTONIX) TAB PO SCH (11:19)
[2023-02-15] MEDS: ENOXAPARIN 40 MG/0.4 ML (LOVENOX) SYR SC SCH (11:19)
--- NOTE | 2023-02-15 13:54 | Occupational Ther Daily Note ---
OT Current Status-Daily Note Subjective Up in recliner agreeable to OT Mental Status/Objective Patient Orientation: Situation Attachments: Oxygen (3 liters NC) 93% 02 w/ VCs for PLB while talking and ambulating ADL-Treatment Therapy Code Descriptions/Definitions Functional [place] Measure: 0=Not Assessed/NA 4=Minimal Assistance 1=Total Assistance 5=Supervision or Setup 2=Maximal Assistance 6=Modified [place] 3=Moderate Assistance 7=Complete IndependenceSCALE: Activities may be completed with or without assistive devices. 7-Aoupbtcsky-wipuoyq completes the activity by him/herself with no assistance from a helper. 5-Set-up or Clean-up Assistance-helper sets up or cleans up; patient completes activity. [place] assists only prior to or following the activity. 4-Supervision or Touching Assistance-helper provides verbal cues and/or touching/steadying and/or contact guard assistance as patient completes activity. Assistance may be provided throughout the activity or intermittently. 3-Partial/Moderate Assistance-helper does LESS THAN HALF the effort. [place] lifts, holds or supports trunk or limbs, but provides less than half the effort. 2-Substantial/Maximal Assistance-helper does MORE THAN HALF the effort. [place] lifts or holds trunk or limbs and provides more than half the effort. 2-Vkkvbdsld-szbcqw does ALL the effort. Patient does none of the effort to complete the activity. Or, the assistance of 2 or more helpers is required for the patient to complete the activity. If activity was not attempted, code reason: 7-Patient Refused. 9-Not Applicable-not attempted and the patient did not perform the activity before the current illness, exacerbation or injury. 10-Not Attempted due to Environmental Limitations-(lack of equipment, weather restraints, etc.). 88-Not Attempted due to Medical Conditions or Safety Concerns. Eating (QC): 6 (Requested additional beverage) Oral Hygiene (QC): 5 (set up provided, performed in sitting) Shower/Bathe Self (QC): 3 (sponge) Upper Body Dressing (QC): 5 Lower Body Dressing (QC): 5 On/Off Footwear: 5 Toileting Hygiene (QC): 4 Toilet Transfer (QC): 5 Other Treatment Activity tolerance training w/ 02 tidy enviromant and implement energy conservation techniques Education OT Patient Education: Energy conservation, Exercise program, Purpose of tx/functional activities, Reviewed precautions, Safety issues, Use of adapted equipment Teaching Recipient: Patient Teaching Methods: Demonstration Response to Teaching: Return Demonstration BIMS CAM BIMS Expression of Ideas and Wants: Without Difficulty Understanding Verbal Content: Understands Brief Interview/Mental Status: No IRF SOLITARIO BIMS: IRF SOLITARIO BIMS Response (Comments) Value Repitition of Three Words Three 3 Recalls Socks Yes, No Cue Required 2 Recalls Blue Yes, No Cue Required 2 Recalls Bed Yes, No Cue Required 2 Year Correct 3 Month Accurate Within 5 Days 2 Day Correct 1 Total 15 Patient Normally Able to Recal: Current Session, Location of own room, Staff Names and faces, That he/she in a [facility] Should Staff Asses. Mental St.: No OT Senior Living Goals Chemical Pumper Goals Oral Hygiene (QC): 6 Toileting Hygiene (QC): 6 Shower/Bathe Self (QC): 5 Upper Body Dressing (QC): 6 Lower Body Dressing (QC): 6 On/Off Footwear (QC): 6 1=Demonstrate adherence to instructed precautions during ADL tasks. 2=Patient will verbalize/demonstrate understanding of assistive devices/modifications for ADL. 3=Patient will improve strength/tolerance for activity to enable patient to perform ADL's. OT Education/Plan Discharge Recommendations Plan/Recommendations: Continue POC Treatment Plan/Plan of Care Patient would benefit from OT for education, treatment and training to promote independence in ADL's, mobility, safety and/or upper extremity function for ADL's. Plan of Care: ADL Retraining, Functional Mobility, Group Exercise/Act as Ind, UE Funct Exercise/Act Treatment Duration: Feb 17, 2023 Frequency: 3 times per week (3-5 times/ week) Estimated Hrs Per Day: .25 hour per day Agreement: Yes Rehab Potential: Fair Return to recliner w/ feet in resting position, all needs met Time Start Time: 13:20 Stop Time: 13:35 DATE: Feb 15, 2023 Total Time Billed (hr/min): 15 Billed Treatment Time ADL 1 15 min TREVOR SILVERMAN OT Feb 15, 2023 13:54
[2023-02-15 20:07] VITALS: BP 118/64
[2023-02-15] MEDS: MELATONIN 3 MG TABLET PO SCH (20:26)
[2023-02-15] MEDS: ROSUVASTATIN 20 MG (CRESTOR) TABLET PO SCH (20:26)
[2023-02-16] MEDS: morphine ER 15 MG (MS CONTIN) TAB PO SCH ×3 (06:22→21:46)
[2023-02-16] MEDS: CATHETER FLUSH 10 ML SYR IVP SCH ×3 (06:23→19:59)
[2023-02-16] MEDS: RT-ALBUTEROL HFA 8.5 GM INHALER IH SCH ×5 (08:03→20:22)
[2023-02-16] MEDS ORDERED: PRED10TA22 PO (08:12)
[2023-02-16] MEDS ORDERED: ALPR0.5T PO (08:12)
[2023-02-16 08:20] VITALS: BP 125/71
--- NOTE | 2023-02-16 09:01 | Occupational Ther Daily Note ---
OT Current Status-Daily Note Subjective Initially OT entered room and patient eating breakfast. OT returned and patient is now agreeable to participate in shower. Mental Status/Objective Patient Orientation: Situation Attachments: Oxygen (low saturation on 3-5 litters NC, RT consulted w/ low 70 's) ADL-Treatment Therapy Code Descriptions/Definitions Functional [place] Measure: 0=Not Assessed/NA 4=Minimal Assistance 1=Total Assistance 5=Supervision or Setup 2=Maximal Assistance 6=Modified [place] 3=Moderate Assistance 7=Complete IndependenceSCALE: Activities may be completed with or without assistive devices. 6-Vzaqpmqozs-qtudcbn completes the activity by him/herself with no assistance from a helper. 5-Set-up or Clean-up Assistance-helper sets up or cleans up; patient completes activity. [place] assists only prior to or following the activity. 4-Supervision or Touching Assistance-helper provides verbal cues and/or touching/steadying and/or contact guard assistance as patient completes activity. Assistance may be provided throughout the activity or intermittently. 3-Partial/Moderate Assistance-helper does LESS THAN HALF the effort. [place] lifts, holds or supports trunk or limbs, but provides less than half the effort. 2-Substantial/Maximal Assistance-helper does MORE THAN HALF the effort. [place] lifts or holds trunk or limbs and provides more than half the effort. 4-Sgqnocolb-jmonvp does ALL the effort. Patient does none of the effort to complete the activity. Or, the assistance of 2 or more helpers is required for the patient to complete the activity. If activity was not attempted, code reason: 7-Patient Refused. 9-Not Applicable-not attempted and the patient did not perform the activity before the current illness, exacerbation or injury. 10-Not Attempted due to Environmental Limitations-(lack of equipment, weather restraints, etc.). 88-Not Attempted due to Medical Conditions or Safety Concerns. Eating (QC): 6 Oral Hygiene (QC): 6 Shower/Bathe Self (QC): 88 (low 02 levels) Upper Body Dressing (QC): 4 Lower Body Dressing (QC): 4 On/Off Footwear: 5 Toileting Hygiene (QC): 4 Toilet Transfer (QC): 4 LOW 02, SOA with minimal movement Education OT Patient Education: Correct positioning, Energy conservation, Modified ADL techniques, Progress toward Goal/Update tx plan, Purpose of tx/functional activities, Reviewed precautions, Safety issues Teaching Recipient: Patient Teaching Methods: Demonstration, Discussion Response to Teaching: Verbalize Understanding OT Test Skein Winder Goals Test Skein Winder Goals Oral Hygiene (QC): 6 Toileting Hygiene (QC): 6 Shower/Bathe Self (QC): 5 Upper Body Dressing (QC): 6 Lower Body Dressing (QC): 6 On/Off Footwear (QC): 6 1=Demonstrate adherence to instructed precautions during ADL tasks. 2=Patient will verbalize/demonstrate understanding of assistive devices/modifications for ADL. 3=Patient will improve strength/tolerance for activity to enable patient to perf orm ADL's. OT Education/Plan Discharge Recommendations Plan/Recommendations: Continue POC (Patient planned ofr DC today, change in 02 status pending DC) Treatment Plan/Plan of Care Patient would benefit from OT for education, treatment and training to promote independence in ADL's, mobility, safety and/or upper extremity function for ADL's. Plan of Care: ADL Retraining, Functional Mobility, Group Exercise/Act as Ind, U E Funct Exercise/Act Treatment Duration: Feb 17, 2023 Frequency: 3 times per week (3-5 times/ week) Estimated Hrs Per Day: .25 hour per day Agreement: Yes Rehab Potential: Fair unable to sustain appropriate therapy 02 levels, RT assessment to be completed. Time Start Time: 08:30 Stop Time: 09:02 DATE: Feb 16, 2023 Total Time Billed (hr/min): 32 Billed Treatment Time ADL 2 32 min TREVOR SILVERMAN OT Feb 16, 2023 09:01
[2023-02-16] MEDS: NICOTINE 7 MG (NICODERM) PATCH TD SCH (09:11)
[2023-02-16] MEDS: PANTOPRAZOLE 40 MG (PROTONIX) TAB PO SCH (09:11)
[2023-02-16] MEDS: meTOprolol TARTRATE 50 MG (LOPRESSOR) TAB PO SCH ×2 (09:12→19:58)
[2023-02-16] MEDS: ENOXAPARIN 40 MG/0.4 ML (LOVENOX) SYR SC SCH (09:12)
[2023-02-16] MEDS: amLODIPine 5 MG (NORVASC) TAB PO SCH (09:12)
[2023-02-16] MEDS: FOLIC ACID 1 MG TAB PO SCH (09:12)
[2023-02-16] MEDS: lisINopril 20 MG (PRINIVIL) TABLET PO SCH (09:12)
[2023-02-16] MEDS: predniSONE 10 MG TAB PO SCH (09:12)
[2023-02-16] MEDS: PATCH REMOVAL TP SCH (09:13)
[2023-02-16] MEDS: LORazepam 0.5 MG (ATIVAN) TABLET PO PRN ×3 (09:20→18:45)
--- NOTE | 2023-02-16 10:55 | Physical Therapy Progress Note ---
Therapy Progress Note Patient on hold this am as patient O2 sats are severely declined at rest on BiPap. Will attempt treatment again this afternoon if patient able to participate. LUPE WETZEL PT Feb 16, 2023 10:55
--- NOTE | 2023-02-16 14:19 | Progress Note - Hospitalist ---
Subjective HPI/CC On Admission Date Seen by Provider: Feb 16, 2023 Time Seen by Provider: 09:50 Subjective/Events-last exam She is requiring more oxygen this morning. She does not feel short of breath. Her cough and sputum production are unchanged. She denies fevers. She does not have any leg swelling or pain. Objective Exam Vital Signs Vital Signs Date Time Temp Pulse Resp B/P (MAP) Pulse Ox O2 Delivery O2 Flow Rate FiO2 02/16/23 11:04 88 High Flow N/C 8.00 02/16/23 08:20 37.2 95 20 125/71 (89) Capillary Refill : General Appearance: No Apparent Distress, Chronically ill Respiratory: Lungs Clear, No Respiratory Distress Cardiovascular: Regular Rate, Rhythm, No Murmur Gastrointestinal: Normal Bowel Sounds, Soft Extremity: Normal Inspection, No Pedal Edema Neurologic/Psychiatric: Alert, Normal Mood/Affect Results/Procedures Lab Patient resulted labs reviewed. Assessment/Plan Assessment and Plan Assess & Plan/Chief Complaint COPD with acute exacerbation Chronic respiratory failure with hypoxia Metastatic lung cancer Cachexia Pain of metastatic malignancy HTN HLD GERD Debility Supplemental oxygen as needed, slightly increased today, wean as able Continue steroids PT/OT DVT ppx: Lovenox Diagnosis/Problems Diagnosis/Problems (1) Acute on chronic respiratory failure with hypoxia Status: Acute (2) Chronic respiratory failure with hypoxia Status: Acute (3) COPD (chronic obstructive pulmonary disease) Status: Acute Qualifiers: COPD type: COPD with acute exacerbation Qualified Codes: J44.1 - Chronic obstructive pulmonary disease with (acute) exacerbation (4) Metastatic lung cancer (metastasis from lung to other site) Status: Acute (5) Pain of metastatic malignancy Status: Chronic (6) Debility Status: Acute FARA CAMPOS MD Feb 16, 2023 14:19
[2023-02-16 19:51] VITALS: BP 120/77
[2023-02-16] MEDS: MELATONIN 3 MG TABLET PO SCH (19:58)
[2023-02-16] MEDS: ROSUVASTATIN 20 MG (CRESTOR) TABLET PO SCH (19:59)
[2023-02-16 20:27] VITALS: BP 120/77
[2023-02-17] MEDS: morphine ER 15 MG (MS CONTIN) TAB PO SCH ×3 (05:55→21:47)
[2023-02-17] MEDS: CATHETER FLUSH 10 ML SYR IVP SCH ×3 (05:55→21:48)
[2023-02-17] MEDS: RT-ALBUTEROL HFA 8.5 GM INHALER IH SCH ×4 (06:59→18:50)
[2023-02-17] MEDS: lisINopril 20 MG (PRINIVIL) TABLET PO SCH (07:51)
[2023-02-17] MEDS: FOLIC ACID 1 MG TAB PO SCH (07:51)
[2023-02-17] MEDS: amLODIPine 5 MG (NORVASC) TAB PO SCH (07:51)
[2023-02-17] MEDS: meTOprolol TARTRATE 50 MG (LOPRESSOR) TAB PO SCH ×2 (07:52→19:51)
[2023-02-17] MEDS: NICOTINE 7 MG (NICODERM) PATCH TD SCH (07:52)
[2023-02-17] MEDS: predniSONE 10 MG TAB PO SCH (07:52)
[2023-02-17] MEDS: PATCH REMOVAL TP SCH (07:55)
[2023-02-17 07:59] VITALS: BP 124/71
--- NOTE | 2023-02-17 08:40 | Physical Therapy Daily Note ---
PT Daily Note-Current Subjective States that she is feeling a lot better today. Pain Section J - Health Conditions 1. Rarely or not at all 2. Occasionally 3. Frequently 4. Almost constantly 8. Unable to answer Pain Effect on Sleep: 1 Pain Interference with Therapy: 1 Pain Interference w/Day-to-Day: 1 Transfers SCALE: Activities may be completed with or without assistive devices. 0-Xtnwirmuzi-rveekhz completes the activity by him/herself with no assistance from a helper. 5-Set-up or Clean-up Assistance-helper sets up or cleans up; patient completes activity. [place] assists only prior to or following the activity. 4-Supervision or Touching Assistance-helper provides verbal cues and/or touching/steadying and/or contact guard assistance as patient completes activity. Assistance may be provided throughout the activity or intermittently. 3-Partial/Moderate Assistance-helper does LESS THAN HALF the effort. [place] lifts, holds or supports trunk or limbs, but provides less than half the effort. 2-Substantial/Maximal Assistance-helper does MORE THAN HALF the effort. [place] lifts or holds trunk or limbs and provides more than half the effort. 3-Lsynaalib-bgbynf does ALL the effort. Patient does none of the effort to complete the activity. Or, the assistance of 2 or more helpers is required for the patient to complete the activity. If activity was not attempted, code reason: 7-Patient Refused. 9-Not Applicable-not attempted and the patient did not perform the activity before the current illness, exacerbation or injury. 10-Not Attempted due to Environmental Limitations-(lack of equipment, weather restraints, etc.). 88-Not Attempted due to Medical Conditions or Safety Concerns. Sit to Lying (QC): 5 Lying to Sitting/Side of Bed(Q: 5 Sit to Stand (QC): 5 Weight Bearing Right Lower Extremity: Right Full Weight Bearing Left Lower Extremity: Left Full Weight Bearing Gait Training Distance: 150' Walk 10 feet (QC): 5 Walk 50 ft with 2 Turns(QC): 5 Walk 150 ft (QC): 5 Gait Persons Needed: 1 Gait Assistive Device: FWW Assessment Current Status: Excellent Progress Patient had no SOB during gait today. PT Snf Goals Snf Goals PT Shipping Support Clerk Goals Time Frame: Mar 17, 2023 Roll Left & Right (QC): 6 Sit to Lying (QC): 6 Lying-Sitting on Side/Bed(QC): 6 Sit to Stand (QC): 6 Chair/Sva-ka-Nbzod Xfer(QC): 6 Toilet Transfer (QC): 6 Car Transfer (QC): 6 Does the Patient Walk: Yes Walk 10 feet (QC): 6 Walk 50ft with 2 Turns (QC): 6 Walk 150 ft (QC): 4 Walking 10ft on Uneven Surface: 6 1 Step (curb) (QC): 9 4 Steps (QC): 9 12 Steps (QC): 9 Picking up an Object (QC): 4 Does the Pt use WC or Scooter?: No Wheel 50 feet with 2 turns (QC: 9 Wheel 150 feet: 9 PT Plan Treatment/Plan Treatment Plan: Continue Plan of Care Treatment Plan: Bed Mobility, Education, Functional Activity Andra, Functional Strength, Group Therapy, Gait, Safety, Therapeutic Exercise, Transfers Treatment Duration: Mar 17, 2023 Frequency: 6 times per week Estimated Hrs Per Day: .25 hour per day Patient and/or Family Agrees t: Yes Time Time In: 815 Time Out: 830 DATE: Feb 17, 2023 Total Billed Treatment Time: 15 Total Billed Treatment 1, GT x 15' ACOSTA LUONG PT Feb 17, 2023 08:40
[2023-02-17] MEDS: LORazepam 0.5 MG (ATIVAN) TABLET PO PRN ×3 (11:26→21:47)
[2023-02-17] MEDS: PANTOPRAZOLE 40 MG (PROTONIX) TAB PO SCH (11:26)
[2023-02-17] MEDS: ENOXAPARIN 40 MG/0.4 ML (LOVENOX) SYR SC SCH (11:28)
[2023-02-17 19:18] VITALS: BP 131/81
[2023-02-17] MEDS: MELATONIN 3 MG TABLET PO SCH (19:51)
[2023-02-17] MEDS: ROSUVASTATIN 20 MG (CRESTOR) TABLET PO SCH (19:53)
[2023-02-18] MEDS: CATHETER FLUSH 10 ML SYR IVP SCH ×3 (06:15→20:12)
[2023-02-18] MEDS: morphine ER 15 MG (MS CONTIN) TAB PO SCH ×3 (06:15→22:33)
[2023-02-18] MEDS: RT-ALBUTEROL HFA 8.5 GM INHALER IH SCH ×4 (07:11→18:45)
[2023-02-18 07:19] VITALS: BP 115/61
[2023-02-18] MEDS: lisINopril 20 MG (PRINIVIL) TABLET PO SCH (08:24)
[2023-02-18] MEDS: PATCH REMOVAL TP SCH (08:24)
[2023-02-18] MEDS: FOLIC ACID 1 MG TAB PO SCH (08:24)
[2023-02-18] MEDS: meTOprolol TARTRATE 50 MG (LOPRESSOR) TAB PO SCH ×2 (08:24→20:11)
[2023-02-18] MEDS: predniSONE 10 MG TAB PO SCH (08:24)
[2023-02-18] MEDS: amLODIPine 5 MG (NORVASC) TAB PO SCH (08:24)
[2023-02-18] MEDS: NICOTINE 7 MG (NICODERM) PATCH TD SCH (08:24)
[2023-02-18] MEDS: PANTOPRAZOLE 40 MG (PROTONIX) TAB PO SCH (11:28)
[2023-02-18] MEDS: ENOXAPARIN 40 MG/0.4 ML (LOVENOX) SYR SC SCH (11:28)
[2023-02-18 17:07] VITALS: BP 119/70
[2023-02-18 19:15] VITALS: BP 155/88
[2023-02-18] MEDS: ROSUVASTATIN 20 MG (CRESTOR) TABLET PO SCH (20:11)
[2023-02-18] MEDS: MELATONIN 3 MG TABLET PO SCH (20:11)
[2023-02-18] MEDS: LORazepam 0.5 MG (ATIVAN) TABLET PO PRN (20:18)
[2023-02-19] MEDS: CATHETER FLUSH 10 ML SYR IVP SCH (05:13)
[2023-02-19] MEDS: morphine ER 15 MG (MS CONTIN) TAB PO SCH (05:13)
[2023-02-19] MEDS: RT-ALBUTEROL HFA 8.5 GM INHALER IH SCH ×2 (07:20→10:51)
[2023-02-19 07:25] VITALS: BP 144/88
[2023-02-19] MEDS: FOLIC ACID 1 MG TAB PO SCH (08:25)
[2023-02-19] MEDS: amLODIPine 5 MG (NORVASC) TAB PO SCH (08:25)
[2023-02-19] MEDS: meTOprolol TARTRATE 50 MG (LOPRESSOR) TAB PO SCH (08:25)
[2023-02-19] MEDS: lisINopril 20 MG (PRINIVIL) TABLET PO SCH (08:25)
[2023-02-19] MEDS: predniSONE 10 MG TAB PO SCH (08:26)
[2023-02-19] MEDS: PATCH REMOVAL TP SCH (08:27)
[2023-02-19] MEDS: NICOTINE 7 MG (NICODERM) PATCH TD SCH (08:27)
--- NOTE | 2023-02-19 10:59 | Therapy Team Discharge Summary ---
Therapy Discharge Summary Discharge Recommendations Date of Discharge Physical Therapy Patient is currently at independent [facility] with gross motor skills. Patient to dismiss to home with home health. Patient has attained all functional goals. Roll Left to Right (QC): 6 Sit to Lying (QC): 5 Lying to Sitting/Side of Bed(Q: 5 Sit to Stand (QC): 5 Chair/Qgy-zv-Qkicd Xfer(QC): 6 Toilet Transfer (QC): 4 Car Transfer (QC): 6 Does the Patient Walk: Yes Mode of Locomotion: Walk Anticipated Mode of Locomotion: Walk Walk 10 feet (QC): 5 Walk 50 ft with 2 Turns(QC): 5 Walk 150 ft (QC): 5 Walking 10ft on uneven surface: 6 Distance: 220 feet Gait Assistive Device: FWW Wheel 50 ft with 2 turns (QC): 88 Wheel 150 ft (QC): 88 1 Step (curb) (QC): 9 4 Steps (QC): 9 12 Steps (QC): 9 Balance Sitting Static: Normal Balance Sitting Dynamic: Normal Balance-Standing Static: Good Picking up an Object (QC): 6 Occupational Therapy Decreased Activ Tolerance, Decreased UE Strength, Impaired Funct Balance (one LOB minimally when standing from reclner, no assistance needed to recover) Eating (QC): 6 Oral Hygiene (QC): 6 Shower/Bathe Self (QC): 88 (low 02 levels) Upper Body Dressing (QC): 4 Lower Body Dressing (QC): 4 On/Off Footwear (QC): 5 Toileting Hygiene (QC): 4 PT Ledge Man Goals Ledge Man Goals PT Senior Care Goals Time Frame: Mar 17, 2023 Roll Left to Right (QC): 6 Sit to Lying (QC): 6 Lying-Sitting on Side/Bed(QC): 6 Sit to Stand (QC): 6 Chair/Mxw-bh-Lrjpq Xfer(QC): 6 Toilet/Commode Transfer (QC): 6 Car Transfer (QC): 6 Does the Patient Walk: Yes Walk 10 feet (QC): 6 Walk 10ft-Uneven Surface(QC): 6 Walk 50ft with 2 Turns (QC): 6 Walk 150 ft (QC): 4 Does the Pt use WC or Scooter?: No Wheel 50 feet with 2 turns (QC: 9 Wheel 150 feet: 9 1 Step (curb) (QC): 9 4 Steps (QC): 9 12 Steps (QC): 9 Picking up an Object (QC): 4 OT Ledge Man Goals Ledge Man Goals Oral Hygiene (QC): 6 Toileting Hygiene (QC): 6 Shower/Bathe Self (QC): 5 Upper Body Dressing (QC): 6 Lower Body Dressing (QC): 6 On/Off Footwear (QC): 6 1=Demonstrate adherence to instructed precautions during ADL tasks. 2=Patient will verbalize/demonstrate understanding of assistive devices/modifications for ADL. 3=Patient will improve strength/tolerance for activity to enable patient to perform ADL's. ELISSA VALLE PT Feb 19, 2023 10:59
--- NOTE | 2023-02-19 11:28 | Therapy Team Discharge Summary ---
Therapy Discharge Summary Discharge Recommendations Date of Discharge Physical Therapy Roll Left to Right (QC): 6 Sit to Lying (QC): 5 Lying to Sitting/Side of Bed(Q: 5 Sit to Stand (QC): 5 Chair/Zvo-sf-Bwuhh Xfer(QC): 6 Toilet Transfer (QC): 4 Car Transfer (QC): 6 Does the Patient Walk: Yes Mode of Locomotion: Walk Anticipated Mode of Locomotion: Walk Walk 10 feet (QC): 5 Walk 50 ft with 2 Turns(QC): 5 Walk 150 ft (QC): 5 Walking 10ft on uneven surface: 6 Distance: 220 feet Gait Assistive Device: FWW Wheel 50 ft with 2 turns (QC): 88 Wheel 150 ft (QC): 88 1 Step (curb) (QC): 9 4 Steps (QC): 9 12 Steps (QC): 9 Balance Sitting Static: Normal Balance Sitting Dynamic: Normal Balance-Standing Static: Good Picking up an Object (QC): 6 Occupational Therapy Decreased Activ Tolerance, Decreased UE Strength, Impaired Funct Balance (one LOB minimally when standing from reclner, no assistance needed to recover) Eating (QC): 6 Oral Hygiene (QC): 6 Shower/Bathe Self (QC): 4 (keep 02 on during shower) Upper Body Dressing (QC): 6 Lower Body Dressing (QC): 4 On/Off Footwear (QC): 6 Toileting Hygiene (QC): 4 PT Top Bottom Attaching Machine Operator Goals Top Bottom Attaching Machine Operator Goals PT Top Bottom Attaching Machine Operator Goals Time Frame: Mar 17, 2023 Roll Left to Right (QC): 6 Sit to Lying (QC): 6 Lying-Sitting on Side/Bed(QC): 6 Sit to Stand (QC): 6 Chair/Cor-fe-Uzheq Xfer(QC): 6 Toilet/Commode Transfer (QC): 6 Car Transfer (QC): 6 Does the Patient Walk: Yes Walk 10 feet (QC): 6 Walk 10ft-Uneven Surface(QC): 6 Walk 50ft with 2 Turns (QC): 6 Walk 150 ft (QC): 4 Does the Pt use WC or Scooter?: No Wheel 50 feet with 2 turns (QC: 9 Wheel 150 feet: 9 1 Step (curb) (QC): 9 4 Steps (QC): 9 12 Steps (QC): 9 Picking up an Object (QC): 4 OT Top Bottom Attaching Machine Operator Goals Custodial Goals Oral Hygiene (QC): 6 Toileting Hygiene (QC): 6 Shower/Bathe Self (QC): 5 Upper Body Dressing (QC): 6 Lower Body Dressing (QC): 6 On/Off Footwear (QC): 6 1=Demonstrate adherence to instructed precautions during ADL tasks. 2=Patient will verbalize/demonstrate understanding of assistive devices/modifications for ADL. 3=Patient will improve strength/tolerance for activity to enable patient to perform ADL's. TREVOR SILVERMAN OT Feb 19, 2023 11:28
--- NOTE | 2023-02-19 11:32 | D/C HH Face to Face Order ---
D/C Face to Face Orders Reconcile Patient Problems Problems Reviewed?: Yes Instructions for Patient Via [facility], Patient Instructions/FollowUp: Please continue to take your medications as written. Please follow up with your primary care doctor to follow up this hospital stay. Physician to follow Patient: Dr Garnett Discharge Diet for Home: No Restrictions Patient Data-Allergies,Ht & Wt Patient Allergies: Coded Allergies: fentanyl (Verified Allergy, Intermediate, 09/03/22) hallucinations codeine (Verified Allergy, Unknown, ITCH/HIVES, 09/03/22) Home Health Need/Face to Face Date of Face to Face: Feb 19, 2023 Clinical Findings: Generalized weakness and fatigue, Shortness of breath I have seen Pt stvx-vz-vwab: Yes Discharged To: Home Diagnosis/Conditions: COPD, Lung Cancer, Pneumonia Patient is Homebound due to: Shortness of breath/distress Homebound Status Due to the above stated illness, injury or surgical procedure (medical condition or diagnosis) and associated clinical findings, the patient is homebound because of his/her inability to leave home except with aid of a supportive device and/or person AND leaving the home requires a considerable and taxing effort or is medically contraindicated. Pt req the following assistanc: Aid of another person, Walker Home Health Nursing Orders Home Health Services Order: Nursing Services, Farm Operator-Evaluate & Treat, Physical Therapy-Evaluate & Treat Therapy Orders Therapy Orders: OT (must have SN or PT order), Physical Therapy Therapy Specific Orders: Eval assistive deivces, Teach enviro modifications/safety, Gait training, Increase strength/endurance Certify Stmt I certify that this patient is under my care and that I, a nurse practitioner or a physician; a therapeutic recreation assistant working with me, had a face to face encounter that - meets the physician face to face encounter requirements with this patient as dated. RONEN PÉREZ MD Feb 19, 2023 11:32
--- NOTE | 2023-02-19 11:34 | Discharge Summary ---
Diagnosis/Chief Complaint Date of Admission Feb 12, 2023 at 14:15 Date of Discharge Primary Care Oscar Garnett MD Discharge Diagnosis (1) Acute on chronic respiratory failure with hypoxia Status: Acute (2) Chronic respiratory failure with hypoxia Status: Acute (3) COPD (chronic obstructive pulmonary disease) Status: Acute (4) Metastatic lung cancer (metastasis from lung to other site) Status: Acute (5) Pain of metastatic malignancy Status: Chronic (6) Debility Status: Acute Discharge Summary Discharge Physical Exam Allergies: Coded Allergies: fentanyl (Verified Allergy, Intermediate, 09/03/22) hallucinations codeine (Verified Allergy, Unknown, ITCH/HIVES, 09/03/22) Vitals & I&Os Vital Signs Date Time Temp Pulse Resp B/P (MAP) Pulse Ox O2 Delivery O2 Flow Rate FiO2 02/19/23 10:51 94 Nasal Cannula 2.00 02/19/23 07:25 36.0 87 18 144/88 (106) General Appearance: No Apparent Distress, Chronically ill, Thin Respiratory: Lungs Clear Cardiovascular: Regular Rate, Rhythm Neurologic/Psychiatric: Alert, Oriented x3 Hospital Course Patient was admitted to swing bed following an acute admission with hypoxic respiratory failure due to pneumonia for oxygen weaning and physical and Occupational Therapy. She did well and her oxygen was able to be weaned down to 2 L/min at rest and 4 L/min with exertion. She completed antibiotics. She did well with therapy and was able to be discharged home with home health to follow- up with her primary care physician and her primary oncologist. She was educated on importance of compliance with oxygen as ordered and to not smoke while on oxygen. I did call and update Dr. Garnett her primary care physician. Labs (last 24 hrs) Patient resulted labs reviewed. Discussion & Recommendations Discharge Planning: >30 minutes discharge planning Discharge Home Medications: Active Scripts Active Prednisone 10 Mg Tab.ds.pk 10 Mg PO DAILY Take 6 tabs(60mg)daily,decrease by 1 tab(10mg)every other day. Xanax (Alprazolam) 0.5 Mg Tablet 0.5 Mg PO TID PRN 7 Days Reported Ventolin Hfa (Albuterol Sulfate) 1 Puff Puff 2 Puff INH Q4H PRN Multivitamin Gummies (Multivit-Minerals/Folic Acid) 200 Mcg Tab.chew 1 Ea PO DAILY Vitamin B-12 (Cyanocobalamin (Vitamin B-12)) 500 Mcg Tablet 500 Mcg PO DAILY Amlodipine Besylate 5 Mg Tablet 5 Mg PO DAILY Morphine Sulfate ER (Morphine Sulfate) 15 Mg Tablet.er 15 Mg PO Q8H Promethazine Tablet (Promethazine HCl) 25 Mg Tablet 25 Mg PO Q6H PRN Zithromax (Azithromycin) 250 Mg Tablet 250 Mg PO DAILY FILLED 01-14-2023 #6/5 DAY SUPPLY Cefuroxime (Cefuroxime Axetil) 500 Mg Tablet 500 Mg PO BID FILLED 01-14-2023 #20/10 DAY SUPPLY Docusate Sodium 100 Mg Capsule 100 Mg PO TID Iprat-Albut 0.5-3(2.5) mg/3 ml (Ipratropium/Albuterol Sulfate) 0.5 Mg-3 Mg (2.5 Mg Base)/3 Ml Ampul.neb 3 Ml NEB Q4H PRN Pantoprazole Sodium 40 Mg Tablet.dr 40 Mg PO 1200 Lisinopril 40 Mg Tablet 20 Mg PO DAILY TAKES OF A 40MG TAB Folic Acid 1 Mg Tablet 1 Mg PO DAILY Oxycodone HCl 5 Mg Tablet 5 Mg PO Q4H PRN Metoprolol Tartrate 100 Mg Tablet 100 Mg PO BID Trelegy Ellipta 100-62.5-25 (Fluticasone/Umeclidin/Vilanter) 100-62.5 Blst.w.dev 1 Each IH 1200 Rosuvastatin Calcium 20 Mg Tablet 20 Mg PO HS Instructions to patient/family Please see electronic discharge instructions given to patient. Problem Qualifiers (1) COPD (chronic obstructive pulmonary disease): COPD type: COPD with acute exacerbation Qualified Codes: J44.1 - Chronic obstructive pulmonary disease with (acute) exacerbation RONEN PÉREZ MD Feb 19, 2023 11:34
[2023-02-19] MEDS: PANTOPRAZOLE 40 MG (PROTONIX) TAB PO SCH (11:46)
[2023-02-19] MEDS: ENOXAPARIN 40 MG/0.4 ML (LOVENOX) SYR SC SCH (11:46)
[2023-02-19] MEDS: LORazepam 0.5 MG (ATIVAN) TABLET PO PRN (13:06)
[2023-02-19 13:20] VITALS: BP 144/88
== END 2023-02-19 13:20 | disposition home health service (06) | DRG 193 ==
LOC: 4TH 14:15
PROVIDERS: ADMIT Internal Medicine; ATTEND Internal Medicine
PROC: 5A09457 Assistance with Respiratory Ventilation, 24-96 Consecutive Hours, Continuous Positive Airway Pressure (ICD-10-PCS; principal; 2023-02-12)
DX: J18.9 Pneumonia, unspecified organism (principal); J96.21 Acute and chronic respiratory failure with hypoxia; J44.0 Chronic obstructive pulmonary disease with (acute) lower respiratory infection; J44.1 Chronic obstructive pulmonary disease with (acute) exacerbation; C34.90 Malignant neoplasm of unspecified part of unspecified bronchus or lung; C79.9 Secondary malignant neoplasm of unspecified site; R64 Cachexia; G89.3 Neoplasm related pain (acute) (chronic); Z66 Do not resuscitate; I10 Essential (primary) hypertension; E78.5 Hyperlipidemia, unspecified; K21.9 Gastro-esophageal reflux disease without esophagitis; R53.81 Other malaise; Z68.20 Body mass index [BMI] 20.0-20.9, adult; Z88.5 Allergy status to narcotic agent; Z79.899 Other long term (current) drug therapy; Z79.891 Long term (current) use of opiate analgesic; Z79.52 Long term (current) use of systemic steroids
CPT/HCPCS: 36415; 80048; 83735; 94640; 94760; 94761

== ENCOUNTER 2023-03-17 17:42 | Inpatient (IN) | payer MEDICARE, MEDICAID ==
[~2023-03-17] VITALS: Ht 147.3 cm; Wt 38.8 kg
[~2023-03-17 17:42] MED LIST changes: +ALPR0.5T PO; +PRED10TA22 PO
[2023-03-17] MEDS ORDERED: RT-ALBUTEROL/IPRATROPIUM 3 ML (DUONEB) VIAL ONE (18:01)
--- NOTE | 2023-03-17 18:13 | ED Respiratory ---
General Chief Complaint: Respiratory Problems Stated Complaint: LOW OXYGEN LEVELS Nursing Triage Note: PT TO ED IN WITH C/O LOW O2. PT REPORTS SHE NOTICED HER O2 LEVELS 64-76% WHILE AT HOME AND DIZZINESS BEGINNING LAST NIGHT. DENIES CP, COUGH, CONGESTION, FEVER, OR ANY OTHER SX AT THIS TIME. PT WEARS 4L NC AT HOME, 2L AT NIGHT. PT 59% ON 4 L NC UPON ARRIVAL. REPORTS LAST BREATHING TX 5-6 HOURS AGO. Source: patient Exam Limitations: no limitations History of Present Illness Date Seen by Provider: Mar 17, 2023 Time Seen by Provider: 18:09 Initial Comments Patient is a 72-year-old female known lung cancer severe COPD chronically on oxygen most recently at 4 L per nasal cannula. Presents to the emergency room profoundly hypoxic with sats in the upper 50s low 60s. Patient states that she has been feeling lightheaded, weak and dizzy since last evening. She denies URI symptoms, congestion, earache, sore throat. No sick contacts. She denies any change in her cough or quality of sputum. She denies chest pain, abdominal pain. No nausea or vomiting. She does endorse dysuria. No swelling in her legs, cramping in her calves. She was placed on 6 L per nasal cannula on arrival with sats in the 94 to 95% range. She is not demonstrating respiratory distress. She can speak in full sentences. She states her appetite has been decreasing over the last week. She did have a bowel movement today. It was not black, not bloody. She states that she is compliant with her daily medications. She did use her last breathing treatment about 5 or 6 hours prior to arrival. She was given a DuoNeb ordered by Dr. Pritchard just prior to me evaluating her. Family member at the bedside. Dr. Pritchard did discuss CODE STATUS with the patient. She elects to be a full code at this point. Timing/Duration: just prior to arrival Severity: severe Modifying Factors: Improves With Albuterol Inhaler, Improves With Albuterol Nebulizer Associated Symptoms: dizziness, lightheadedness, other (weak) Allergies and Home Medications Allergies Coded Allergies: fentanyl (Verified Allergy, Intermediate, 09/03/22) hallucinations codeine (Verified Allergy, Unknown, ITCH/HIVES, 09/03/22) Patient Home Medication List Home Medication List Reviewed: Yes Albuterol Sulfate (Ventolin Hfa) 1 Puff Puff, 2 PUFF INH Q4H PRN for SHORTNESS OF BREATH, (Reported) Entered as Reported by: KALPESH REYES on 01/18/23 1021 Alprazolam (Xanax) 0.5 Mg Tablet, 0.5 MG PO TID PRN for ANXIETY Prescribed by: FARA CAMPOS on 02/16/23 0813 Amlodipine Besylate (Amlodipine Besylate) 5 Mg Tablet, 5 MG PO DAILY, (Reported) Entered as Reported by: KALPESH REYES on 01/18/23 1017 Cyanocobalamin (Vitamin B-12) (Vitamin B-12) 500 Mcg Tablet, 500 MCG PO DAILY, (Reported) Entered as Reported by: KALPESH REYES on 01/18/23 1017 Docusate Sodium (Docusate Sodium) 100 Mg Capsule, 100 MG PO TID, (Reported) Entered as Reported by: KALPESH REYES on 09/12/22 1125 Fluticasone/Umeclidin/Vilanter (Trelegy Ellipta 100-62.5-25) 100-62.5 Blst.w.dev, 1 EACH IH 1200, (Reported) Entered as Reported by: BON KNOWLES on 08/23/22 1526 Folic Acid (Folic Acid) 1 Mg Tablet, 1 MG PO DAILY, (Reported) Entered as Reported by: CHRISTIAN MUSE on 09/04/22 1331 Ipratropium/Albuterol Sulfate (Iprat-Albut 0.5-3(2.5) mg/3 ml) 0.5 Mg-3 Mg (2.5 Mg Base)/3 Ml Ampul.neb, 3 ML NEB Q4H PRN for SHORTNESS OF BREATH, (Reported) Entered as Reported by: KALPESH REYES on 09/12/22 1125 Lisinopril (Lisinopril) 40 Mg Tablet, 20 MG PO DAILY, (Reported) Entered as Reported by: CHRISTIAN MUSE on 09/04/22 1331 Metoprolol Tartrate (Metoprolol Tartrate) 100 Mg Tablet, 100 MG PO BID, (Reporte d) Entered as Reported by: BON KNOWLES on 08/23/22 1526 Morphine Sulfate (Morphine Sulfate ER) 15 Mg Tablet.er, 15 MG PO Q8H, (Reported) Entered as Reported by: KALPESH REYES on 01/18/23 1017 Multivit-Minerals/Folic Acid (Multivitamin Gummies) 200 Mcg Tab.chew, 1 EA PO DAILY, (Reported) Entered as Reported by: KALPESH REYES on 01/18/23 1017 Oxycodone HCl (Oxycodone HCl) 5 Mg Tablet, 5 MG PO Q4H PRN for PAIN-SEVERE (8- 10), (Reported) Entered as Reported by: CHRISTIAN MUSE on 09/04/22 1329 Pantoprazole Sodium (Pantoprazole Sodium) 40 Mg Tablet.dr, 40 MG PO 1200, (Reported) Entered as Reported by: KALPESH REYES on 09/12/22 1125 Prednisone (Prednisone) 10 Mg Tab.ds.pk, 10 MG PO DAILY Prescribed by: FARA CAMPOS on 02/16/23 0812 Promethazine HCl (Promethazine Tablet) 25 Mg Tablet, 25 MG PO Q6H PRN for NAUSEA/VOMITING-2ND LINE, (Reported) Entered as Reported by: KALPESH REYES on 01/18/23 1017 Rosuvastatin Calcium (Rosuvastatin Calcium) 20 Mg Tablet, 20 MG PO HS, (Reported) Entered as Reported by: KALPESH REYES on 08/03/22 1603 Review of Systems Review of Systems Constitutional: see HPI EENTM: no symptoms reported Respiratory: short of breath Cardiovascular: no symptoms reported Gastrointestinal: no symptoms reported Genitourinary: dysuria Musculoskeletal: no symptoms reported Skin: no symptoms reported Psychiatric/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: Other (lightheaded. dizzy, "unwell") All Other Systems Reviewed Negative Unless Noted: Yes Past Obuzjcl-Xkqiai-Dmtian Hx Patient Social History Tobacco Use?: No Smoking Status: Former Smoker Use of E-Cig and/or Vaping dev: No Substance use?: No Alcohol Use?: No Pt feels they are or have been: No Immunizations Up To Date Tetanus Booster (TDap): Unknown Influenza Vaccine Up-to-Date: No; Not Current First/Initial COVID19 Vaccinat: 12/12/2020 [facility] Second COVID19 Vaccination Noe: 01/07/2021 [facility] Third COVID19 Vaccination Date: 12/01/21 [facility] Seasonal Allergies Seasonal Allergies: No Past Medical History Surgery/Hospitalization HX: COPD, CA LUNG W METS Surgeries: Yes (port, skin cancer resection) Abdominal, Hysterectomy Respiratory: Yes (Lung cancer) Pneumonia, COPD Currently Using CPAP: No Currently Using BIPAP: No Cardiac: Yes 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, 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: No [employer] History: Hysterectomy Genitourinary: Yes (NEPHROSTOMY TUBE-KIDNEY STRETCHED) Kidney Stones, UTI-Chronic Gastrointestinal: No Musculoskeletal: Yes Chronic Back Pain Endocrine: No HEENT: No Cancer: Yes (Gynecologic) Lung, Skin, Lymphoma Did You Recieve Any Treatments: Yes What Type of Treatment Did You: Chemotherapy Psychosocial: No Integumentary: No Blood Disorders: No Family Medical History No Pertinent Family Hx Physical Exam Vital Signs - First Documented 03/17/23 17:47 Temp 36.4 Pulse 92 Resp 17 B/P (MAP) 136/106 (116) Pulse Ox 92 O2 Delivery OxyMask O2 Flow Rate 4.00 Capillary Refill : Height: '" Weight: lbs. oz. kg; 17.00 BMI Method: General Appearance: no apparent distress, cachetic, thin Eyes: Bilateral Eye Normal Inspection, Bilateral Eye PERRL, Bilateral Eye EOMI Neck: normal inspection Respiratory: lungs clear, normal breath sounds, no respiratory distress, other (right sided power port; on 6L 96%) Cardiovascular: regular rate, rhythm Gastrointestinal: soft Extremities: normal range of motion, non-tender, normal inspection, no pedal edema, no calf tenderness Neurologic/Psychiatric: alert, normal mood/affect, oriented x 3 Skin: normal color, warm/dry Progress/Results/Core Measures Suspected Sepsis SIRS Temperature: Pulse: 92 Respiratory Rate: 17 Laboratory Tests 03/17/23 18:05: White Blood Count 6.4 Blood Pressure 136 /106 Mean: 116 Laboratory Tests 03/17/23 18:05: Creatinine 0.76, INR Comment 1.1, Platelet Count 152, Total Bilirubin 0.5 Results/Orders Lab Results Laboratory Tests Test 03/17/23 18:04 03/17/23 18:05 03/17/23 19:20 Range/Units Blood Gas Puncture Site LEFT RADIAL Blood Gas Patient Temperature 36.4 Arterial Blood pH 7.42 7.37-7.43 Arterial Blood Partial Pressure CO2 36 35-45 MMHG Arterial Blood Partial Pressure O2 73 L 79-93 MMHG Arterial Blood HCO3 23 23-27 MMOL/L Arterial Blood Total CO2 24.0 21.0-31.0 MMOL/L Arterial Blood Oxygen Saturation 97 94-100 % Arterial Blood Base Excess -1.1 -2.5-2.5 MMOL/L Zhen Test N/A Blood Gas Ventilator Setting NO Blood Gas Inspired Oxygen N/A White Blood Count 6.4 4.3-11.0 10^3/uL Red Blood Count 3.43 L 3.80-5.11 10^6/uL Hemoglobin 9.7 L 11.5-16.0 g/dL Hematocrit 31 L 35-52 % Mean Corpuscular Volume 91 80-99 fL Mean Corpuscular Hemoglobin 28 25-34 pg Mean Corpuscular Hemoglobin Concent 31 L 32-36 g/dL Red Cell Distribution Width 15.9 H 10.0-14.5 % Platelet Count 152 130-400 10^3/uL Mean Platelet Volume 9.2 9.0-12.2 fL Immature Granulocyte % (Auto) 2 % Neutrophils (%) (Auto) 52 42-75 % Lymphocytes (%) (Auto) 34 12-44 % Monocytes (%) (Auto) 11 0-12 % Eosinophils (%) (Auto) 1 0-10 % Basophils (%) (Auto) 1 0-10 % Neutrophils # (Auto) 3.3 1.8-7.8 10^3/uL Lymphocytes # (Auto) 2.2 1.0-4.0 10^3/uL Monocytes # (Auto) 0.7 0.0-1.0 10^3/uL Eosinophils # (Auto) 0.0 0.0-0.3 10^3/uL Basophils # (Auto) 0.1 0.0-0.1 10^3/uL Immature Granulocyte # (Auto) 0.1 0.0-0.1 10^3/uL Prothrombin Time 14.3 12.2-14.7 SEC INR Comment 1.1 0.8-1.4 Activated Partial Thromboplast Time 30 24-35 SEC D-Dimer 1.44 H 0.00-0.49 UG/ML Sodium Level 138 135-145 MMOL/L Potassium Level 4.2 3.6-5.0 MMOL/L Chloride Level 105 98-107 MMOL/L Carbon Dioxide Level 21 21-32 MMOL/L Anion Gap 12 5-14 MMOL/L Blood Urea Nitrogen 17 7-18 MG/DL Creatinine 0.76 0.60-1.30 MG/DL Estimat Glomerular Filtration Rate 84 BUN/Creatinine Ratio 22 Glucose Level 108 H 70-105 MG/DL Calcium Level 8.3 L 8.5-10.1 MG/DL Corrected Calcium 8.9 8.5-10.1 MG/DL Total Bilirubin 0.5 0.1-1.0 MG/DL Aspartate Amino Transf (AST/SGOT) 19 5-34 U/L Alanine Aminotransferase (ALT/SGPT) 11 0-55 U/L Alkaline Phosphatase 78 40-136 U/L Total Protein 5.3 L 6.4-8.2 GM/DL Albumin 3.2 3.2-4.5 GM/DL Urine Color YELLOW Urine Clarity SL CLOUDY Urine pH 6.0 5-9 Urine Specific Biggs 1.015 L 1.016-1.022 Urine Protein TRACE H NEGATIVE Urine Glucose (UA) NEGATIVE NEGATIVE Urine Ketones NEGATIVE NEGATIVE Urine Nitrite POSITIVE H NEGATIVE Urine Bilirubin NEGATIVE NEGATIVE Urine Urobilinogen 1.0 < = 1.0 MG/DL Urine Leukocyte Esterase 3+ H NEGATIVE Urine RBC (Auto) NEGATIVE NEGATIVE Urine RBC 2-5 H /HPF Urine WBC >100 H /HPF Urine Squamous Epithelial Cells 25-50 H /HPF Urine Crystals NONE /LPF Urine Bacteria LARGE H /HPF Urine Casts NONE /LPF Urine Mucus SMALL H /LPF Urine Culture Indicated YES My Orders Orders - MARTHA DEL RIO MD Ed Iv/Invasive Line Start (03/17/23 18:19) Cbc With Automated Diff (03/17/23 18:19) Comprehensive Metabolic Panel (03/17/23 18:19) Protime With Inr (03/17/23 18:19) Partial Thromboplastin Time (03/17/23 18:19) Fibrin Degradation Products (03/17/23 18:19) Arterial Blood Gas (03/17/23 18:19) Chest 1 View, Ap/Pa Only (03/17/23 18:19) Ua Culture If Indicated (03/17/23 18:19) Ns Iv 500 Ml (Sodium Chloride 0.9%) (03/17/23 18:30) General/Regular (03/17/23 Dinner) Ct Angio Chest W (R/O Pe) (03/17/23 18:49) Ns Iv 500 Ml (Sodium Chloride 0.9%) (03/17/23 19:00) Iohexol Injection (Omnipaque 350 Mg/Ml 1 (03/17/23 19:00) Received Contrast (Hold Metformin- Contr (03/17/23 19:00) Ns (Ivpb) (Sodium Chloride 0.9% Ivpb Bag (03/17/23 19:00) Urine Culture (03/17/23 19:20) Morphine Injection (Morphine Injection (03/17/23 19:46) Ceftriaxone Iv/Im (Rocephin Iv/Im) (03/17/23 20:00) Medications Given in ED Current Medications Medications Dose Ordered Sig/Ade Route Start Time Stop Time Status Last Admin Dose Admin Albuterol/ Ipratropium 3 ml ONCE ONCE INH 03/17/23 18:15 03/17/23 18:16 DC 03/17/23 18:17 3 ML Ceftriaxone Sodium 1000 mg/ Sodium Chloride 50 ml @ 100 mls/hr ONCE ONCE IV 03/17/23 20:00 03/17/23 20:29 03/17/23 19:52 100 MLS/HR Iohexol 75 ml ONCE ONCE IV 03/17/23 19:00 03/17/23 19:01 UNV 03/17/23 19:38 55 ML Sodium Chloride 100 ml ONCE ONCE IV 03/17/23 19:00 03/17/23 19:01 UNV 03/17/23 19:38 70 ML Vital Signs/I&O 03/17/23 03/17/23 03/17/23 17:47 17:47 18:17 Temp 36.4 Pulse 92 Resp 17 B/P (MAP) 136/106 (116) Pulse Ox 92 96 O2 Delivery OxyMask Nasal Cannula Nasal Cannula O2 Flow Rate 4.00 6.00 Capillary Refill : Blood Pressure Mean: 116 Progress Note : Time: 20:09 Progress Note Patient seen and evaluated by me. Evaluation today includes physical exam, single view chest x-ray, CBC, ABG, chemistry, D-dimer, coags, urinalysis, CT angiogram for PE. Pertinent physical exam findings, include frail elderly female who appears older than stated age in no acute distress. Lungs are clear. No increased work of breathing or respiratory distress is noted. Abdomen is soft. Poor skin turgor. Differential diagnosis based on history and physical, acute exacerbation of COPD, pulmonary embolism, pneumonia, urinary tract infection. Independent evaluation of labs, imaging by me. Her CBC shows chronic anemia with a hemoglobin of 9, normal white blood cell count, normal platelets. Chemistry shows a blood sugar of 108 otherwise unremarkable. ABG shows a pH of 7.42, PCO2 of 36, PO2 of 73 sat of 97 on 6 L per nasal cannula. Coags are normal. D-dimer is elevated at 1.44. Urinalysis is nitrite positive with 3+ leukocyte Estrace, greater than 100 white blood cells, large bacteria, 2-5 RBCs. Chest x-ray reviewed by me, chronic interstitial changes. CT angiogram, I did not see any evidence of acute pulmonary embolism, this is confirmed by radiologist report. Patient was given 2 500 cc boluses of normal saline. For her urinary tract infection treated with 1 g of Rocephin. She was also given 3 mg of morphine IV as she was supposed to take her nightly dose of morphine at 8 PM. I discussed the case with Dr. Campos. She had a lengthy hospital stay during the entire month of January. He had a difficult time getting her discharge due to oxygen requirement. We will put her in the hospital on cardiac stepdown unit for her hypoxia and urinary tract infection. Likely will require Vapotherm again. Patient has been made aware of the plan of care and is agreeable. All questions are sought and answered Diagnostic Imaging Diagonstic Imaging: Xray Comments [facility]. [place], [place] NAME: NADIA SCHULTZ [facility] REC#: [id number] PT STATUS: REG ER : 1950 PHYSICIAN: MARTHA DEL RIO MD ADMIT DATE: 03/17/23/ER Signed Date of Exam:03/17/23 CHEST 1 VIEW, AP/PA ONLY CHEST 1 VIEW, AP/PA ONLY INDICATION: SOB hypoxia. COMPARISON: Chest radiograph the 2022 . FINDINGS: Redemonstration of coarse reticular opacities bilaterally. There are new airspace opacities in the lung bases. Right pectoral Port-A-Cath. Cardiac silhouette is normal. Pulmonary vascularity is not well assessed due to overlying course of the reticular opacities. No acute osseous findings. No pleural effusion or pneumothorax. IMPRESSION: New airspace opacities in the lung bases may represent infection or atelectasis. Redemonstration of extensive pulmonary fibrosis. Dictated by: Dictated on workstation # [id number] Dict: 03/17/231854 Trans: 03/17/231913 [facility] [id number] Interpreted by: SHRUTI DANIELS DO Electronically signed by: SHRUTI DANIELS DO 03/17/231913 Diagonstic Imaging: CT Comments [facility], [place] NAME: NADIA SCHULTZ [facility] REC#: [id number] PT STATUS: REG ER : 1950 PHYSICIAN: MARTHA DEL RIO MD ADMIT DATE: 03/17/23/ER Signed Date of Exam:03/17/23 CT ANGIO CHEST W (R/O PE) EXAMINATION: CT chest TECHNIQUE: Postcontrast axial CTA of the chest obtained utilizing PE protocol. Coronal and sagittal reformats reconstructed. MIP reconstructions performed. HISTORY: Hypoxia on 4L (59-65%) COMPARISON: CTA of the chest on 01/13/2023 FINDINGS: No acute pulmonary emboli. New bibasilar airspace opacities. Diffuse bilateral interstitial thickening and course bilateral reticular opacities. There is no axillary or supraclavicular lymphadenopathy. There is no mediastinal lymphadenopathy. Heart size is enlarged. There are mild coronary artery calcifications. No pericardial effusion. Aorta is normal in caliber. Pulmonary artery is enlarged. Included views of the abdomen demonstrates a similar size of the bilateral adrenal masses. With left adrenal mass which measures 5.3 cm and the right adrenal nodule which measures 2 cm. The osseous structures demonstrate no lytic or sclerotic bone lesions. IMPRESSION: Diffuse bilateral interstitial thickening may be seen with atypical/parietal pneumonia or pulmonary interstitial edema. Additionally there is bibasilar airspace opacities which could represent infection or atelectasis. Cardiomegaly. Pulmonary hypertension. No acute pulmonary emboli. Cardiomegaly. Dictated by: Dictated on workstation # [id number] Dict: 03/17/231943 Trans: 03/17/231952 [facility] [id number] Interpreted by: SHRUTI DANIELS DO Electronically signed by: SHRUTI DANIELS DO 03/17/231952 Departure Communication (Admissions) Time/Spoke to Admitting Phy: 20:[address] Campos; IP to Cardiac Stepdown Impression Primary Impression: UTI (urinary tract infection) Qualified Codes: N39.0 - Urinary tract infection, site not specified; R31.9 - Hematuria, unspecified Additional Impressions: Hypoxia Lung cancer Qualified Codes: C34.90 - Malignant neoplasm of unspecified part of unspecified bronchus or lung Disposition: ADMITTED INPATIENT Condition: Stable Admissions Decision to Admit Reason: Admit from ER (General) Decision to Admit/Date: Mar 17, 2023 Time/Decision to Admit Time: 20:06 Departure-Patient Inst. Referrals: BAIRON HARRIS MD (PCP/Family) Primary Care Physician MARTHA DEL RIO MD Mar 17, 2023 18:13
[2023-03-17] MEDS ORDERED: RT-ALBUTEROL/IPRATROPIUM 3 ML (DUONEB) VIAL INH ONE (18:15)
[2023-03-17 18:26] LABS: ABG BASE EXCESS -1.1 MMOL/L (-2.5-2.5); ABG OXYGEN SATURATION 97 % (94-100); ABG PCO2 36 MMHG (35-45); ABG PH 7.42 (7.37-7.43); ABG PO2 73 MMHG (79-93); PATIENT TEMP 36.4; VENTILATOR NO
[2023-03-17 18:28] LABS: BASOPHILS # (AUTO) 0.1 10^3/uL (0.0-0.1); BASOPHILS % (AUTO) 1 % (0-10); EOSINOPHILS % (AUTO) 1 % (0-10); HEMATOCRIT 31 % (35-52); HEMOGLOBIN 9.7 g/dL (11.5-16.0); LYMPHOCYTES # (AUTO) 2.2 10^3/uL (1.0-4.0); LYMPHOCYTES % (AUTO) 34 % (12-44); MEAN CORPUSCULAR HEMOGLOBIN 28 pg (25-34); MEAN CORPUSCULAR HGB CONC 31 g/dL (32-36); MEAN CORPUSCULAR VOLUME 91 fL (80-99); MEAN PLATELET VOLUME 9.2 fL (9.0-12.2); MONOCYTES # (AUTO) 0.7 10^3/uL (0.0-1.0); MONOCYTES % (AUTO) 11 % (0-12); NEUTROPHILS # (AUTO) 3.3 10^3/uL (1.8-7.8); NEUTROPHILS % (AUTO) 52 % (42-75); PLATELET COUNT 152 10^3/uL (130-400); WHITE BLOOD COUNT 6.4 10^3/uL (4.3-11.0)
[2023-03-17] MEDS ORDERED: NS IV 500 ML 500 ML IV SCH ×2 (18:30→19:00)
[2023-03-17 18:33] LABS: ALBUMIN 3.2 GM/DL (3.2-4.5)
[2023-03-17 18:34] LABS: POTASSIUM 4.2 MMOL/L (3.6-5.0)
[2023-03-17 18:35] LABS: CALCIUM 8.3 MG/DL (8.5-10.1)
[2023-03-17 18:36] LABS: TOTAL PROTEIN 5.3 GM/DL (6.4-8.2)
[2023-03-17 18:38] LABS: BILIRUBIN,TOTAL 0.5 MG/DL (0.1-1.0)
[2023-03-17 18:39] LABS: CREATININE SERUM 0.76 MG/DL (0.60-1.30); FIBRIN DEGRADATION PRODUCTS 1.44 UG/ML (0.00-0.49); INR 1.1 (0.8-1.4); PROTHROMBIN TIME PATIENT 14.3 SEC (12.2-14.7)
[2023-03-17] MEDS ORDERED: IOHEXOL 350 MG/ML 100 ML (OMNIPAQUE 350) VIAL IV ONE (19:00)
[2023-03-17] MEDS ORDERED: NS 100 ML (IVPB) BAG IV ONE (19:00)
[2023-03-17] MEDS ORDERED: HOLD METFORMIN - RECEIVED CONTRAST 20 ML VIAL IV SCH (19:00)
--- NOTE | 2023-03-17 19:15 | Diagnostic Imaging Report ---
CHEST 1 VIEW, AP/PA ONLY INDICATION: SOB hypoxia. COMPARISON: Chest radiograph the 2022 . FINDINGS: Redemonstration of coarse reticular opacities bilaterally. There are new airspace opacities in the lung bases. Right pectoral Port-A-Cath. Cardiac silhouette is normal. Pulmonary vascularity is not well assessed due to overlying course of the reticular opacities. No acute osseous findings. No pleural effusion or pneumothorax. IMPRESSION: New airspace opacities in the lung bases may represent infection or atelectasis. Redemonstration of extensive pulmonary fibrosis. Dictated by: Dictated on workstation # [id number]
[2023-03-17 19:25] LABS: BILIRUBIN,URINE NEGATIVE (NEGATIVE); CLARITY,URINE SL CLOUDY; COLOR,URINE YELLOW; GLUCOSE, URINE (UA) NEGATIVE (NEGATIVE); KETONES,URINE NEGATIVE (NEGATIVE); LEUKOCYTE ESTERASE ,URINE 3+ (NEGATIVE); NITRITE,URINE POSITIVE (NEGATIVE); PROTEIN,URINE TRACE (NEGATIVE)
[2023-03-17 19:39] LABS: BACTERIA,URINE LARGE /HPF; SQUAMOUS EPITHELIAL CELL,UR 25-50 /HPF; WBC,URINE >100 /HPF
[2023-03-17] MEDS ORDERED: morphine INJ 10 MG/ML 1ML (SYR OR VIAL) IVP STA (19:46)
--- NOTE | 2023-03-17 19:56 | Diagnostic Imaging Report ---
EXAMINATION: CT chest TECHNIQUE: Postcontrast axial CTA of the chest obtained utilizing PE protocol. Coronal and sagittal reformats reconstructed. MIP reconstructions performed. HISTORY: Hypoxia on 4L (59-65%) COMPARISON: CTA of the chest on 01/13/2023 FINDINGS: No acute pulmonary emboli. New bibasilar airspace opacities. Diffuse bilateral interstitial thickening and course bilateral reticular opacities. There is no axillary or supraclavicular lymphadenopathy. There is no mediastinal lymphadenopathy. Heart size is enlarged. There are mild coronary artery calcifications. No pericardial effusion. Aorta is normal in caliber. Pulmonary artery is enlarged. Included views of the abdomen demonstrates a similar size of the bilateral adrenal masses. With left adrenal mass which measures 5.3 cm and the right adrenal nodule which measures 2 cm. The osseous structures demonstrate no lytic or sclerotic bone lesions. IMPRESSION: Diffuse bilateral interstitial thickening may be seen with atypical/parietal pneumonia or pulmonary interstitial edema. Additionally there is bibasilar airspace opacities which could represent infection or atelectasis. Cardiomegaly. Pulmonary hypertension. No acute pulmonary emboli. Cardiomegaly. Dictated by: Dictated on workstation # [id number]
[2023-03-17] MEDS ORDERED: cefTRIAXone IV/IM 1,000 MG in NS (IVPB) 50 ML IV ONE (20:00)
[2023-03-17 21:39] VITALS: BP 136/106
[2023-03-17] MEDS ORDERED: MELATONIN 3 MG TABLET PO PRN (21:45)
[2023-03-17] MEDS ORDERED: ANTACID SUSP 30 ML UDC (MYLANTA) PO PRN (21:45)
[2023-03-17] MEDS ORDERED: LACTULOSE SYRUP 10GM/15ML (ENULOSE) 30ML UDC PO PRN (21:45)
[2023-03-17] MEDS ORDERED: ONDANSETRON 4 MG/2 ML (SDV) Z0FRAN IV PRN (21:45)
[2023-03-17] MEDS ORDERED: RT-ALBUTEROL/IPRATROPIUM 3 ML (DUONEB) VIAL INH PRN (21:45)
[2023-03-17] MEDS ORDERED: ONDANSETRON 4 MG (ZOFRAN) ORAL DISSOLVE TAB PO PRN (21:45)
[2023-03-17] MEDS ORDERED: ACETAMINOPHEN 325 MG TABLET PO PRN (21:45)
[2023-03-17] MEDS ORDERED: NS IV 500 ML 500 ML IV PRN (21:45)
[2023-03-17] MEDS ORDERED: BISACODYL 10 MG SUPP (DULCOLAX) PR PRN (21:45)
[2023-03-17] MEDS ORDERED: CALCIUM CARBONATE 500 MG (TUMS) TAB.CHEW PO PRN (21:45)
[2023-03-17] MEDS ORDERED: polyethylene glycoL POWDER 17 GM (MIRALAX) PACK PO PRN (21:45)
[2023-03-17] MEDS ORDERED: MILK OF MAGNESIA 400 MG/5 ML 30 ML UDC PO PRN (21:45)
[2023-03-17] MEDS ORDERED: PIPERACILLIN SODIUM/TAZOBACTAM 4.5 GM in NS (IVPB) 100 ML IV ONE (22:00)
[2023-03-17] MEDS: morphine ER 15 MG (MS CONTIN) TAB PO SCH (22:00)
[2023-03-17] MEDS ORDERED: ALPRAZolam 0.25 MG (XANAX) TAB PO ONE (22:00)
--- NOTE | 2023-03-17 22:00 | Tele-ICU Progress Note ---
Subjective Date Seen by a Provider: Mar 17, 2023 Time Seen by a Provider: 22:00 Subjective/Events-last exam patient here for sob, resting comfortably, has stage 4 cancer lung, had cta and increased o2 requirements, per note has nephrostomy tube with chronic uti, on abx for dirty urine, currently on oxygen resting comfortably, did eval over camera, appears comfortable of note patient appears to take morphine er q8 hours every day for months now, also has xanax prn patient ed note reviewed patient to get abx restarted morphine regiment, discussed with nurse to hold off on morphine for few hours as received 3 mg iv in or, did get some ivf in ed will continue abx on supplemental oxygen wean as tolerated monitor resp status was here before and was difficult to wean from vent patient care discussed with nurse Review of Systems HEENT: Head Aches, Visual Changes, Eye Pain, Ear Pain, Dysphasia, Sinus Congestion, Post Nasal Drip, Sore Throat, Other Pulmonary: Dyspnea, Cough, Pleuritic Chest Pain, Other Musculoskeletal: other, neck pain, shoulder pain, arm pain, back pain, hand pain, leg pain, foot pain Sepsis Event Evaluation Sepsis Stage: Sepsis Possible Source: Genitouriary Height, Weight, BMI Height: '" Weight: lbs. oz. kg; 17.00 BMI Method: Exam Exam Patient acknowledged, consented, and participated in this virtual visit which was conducted using real time audio/video Vital Signs Date Time Temp Pulse Resp B/P (MAP) Pulse Ox O2 Delivery O2 Flow Rate FiO2 03/17/23 21:52 108 03/17/23 21:39 36.4 92 92 50 03/17/23 21:20 38.3 114 22 142/88 (106) 87 Vapotherm 25.00 65.00 03/17/23 18:17 96 Nasal Cannula 6.00 03/17/23 17:47 Nasal Cannula 4.00 03/17/23 17:47 36.4 92 17 136/106 (116) 92 OxyMask Height & Weight Height: '" Weight: lbs. oz. kg; 17.00 BMI Method: General Appearance: Chronically ill Capillary Refill: Less Than 3 Seconds Gastrointestinal: soft Results Lab Laboratory Tests 03/17/23 18:05 Assessment/Plan Assessment/Plan patient s/p resp failure acute on chronic, with uti, on abx supplemental oxygen abx continue pain regiment from home Diagnosis/Problems Diagnosis/Problems (1) Chronic respiratory failure with hypoxia Status: Chronic (2) UTI (urinary tract infection) Status: Acute Qualifiers: SHAMIR VERA MD Mar 17, 2023 22:00
[2023-03-17] MEDS: ENOXAPARIN INJECTION 30 MG/0.3 ML SYR SC SCH (22:17)
[2023-03-17] MEDS: RT-ALBUTEROL/IPRATROPIUM 3 ML (DUONEB) VIAL INH SCH (22:24)
[2023-03-18] MEDS: RT-ALBUTEROL/IPRATROPIUM 3 ML (DUONEB) VIAL INH SCH ×2 (02:46→06:48)
[2023-03-18] MEDS: PIPERACILLIN SODIUM/TAZOBACTAM 4.5 GM in NS (IVPB) 100 ML IV SCH ×3 (03:58→19:29)
[2023-03-18 04:12] LABS: BASOPHILS % (AUTO) 1 % (0-10); EOSINOPHILS % (AUTO) 1 % (0-10); HEMATOCRIT 28 % (35-52); HEMOGLOBIN 8.8 g/dL (11.5-16.0); LYMPHOCYTES # (AUTO) 2.5 10^3/uL (1.0-4.0); LYMPHOCYTES % (AUTO) 39 % (12-44); MEAN CORPUSCULAR HEMOGLOBIN 29 pg (25-34); MEAN CORPUSCULAR HGB CONC 32 g/dL (32-36); MEAN CORPUSCULAR VOLUME 91 fL (80-99); MEAN PLATELET VOLUME 9.6 fL (9.0-12.2); MONOCYTES # (AUTO) 0.7 10^3/uL (0.0-1.0); MONOCYTES % (AUTO) 11 % (0-12); NEUTROPHILS # (AUTO) 2.9 10^3/uL (1.8-7.8); NEUTROPHILS % (AUTO) 47 % (42-75); PLATELET COUNT 148 10^3/uL (130-400); WHITE BLOOD COUNT 6.2 10^3/uL (4.3-11.0)
[2023-03-18 04:34] LABS: ALBUMIN 2.9 GM/DL (3.2-4.5); BILIRUBIN,TOTAL 0.3 MG/DL (0.1-1.0); CREATININE SERUM 0.96 MG/DL (0.60-1.30); MAGNESIUM 1.7 MG/DL (1.6-2.4); PHOSPHORUS 4.2 MG/DL (2.3-4.7); POTASSIUM 3.4 MMOL/L (3.6-5.0); TOTAL PROTEIN 4.7 GM/DL (6.4-8.2)
[2023-03-18] MEDS: KCL 20 MEQ TAB (K-DUR) PO SCH (04:37)
[2023-03-18] MEDS: POTASSIUM CL 10MEQ/50ML IVPB 50 ML IV SCH ×5 (04:38→07:36)
[2023-03-18] MEDS: MAGNESIUM 1 GM/100 ML IVPB 100 ML IV SCH ×5 (04:38→07:36)
[2023-03-18] MEDS: morphine ER 15 MG (MS CONTIN) TAB PO SCH ×3 (05:05→21:50)
[2023-03-18] MEDS: DOCUSATE SODIUM 100 MG (COLACE) CAP PO SCH ×2 (08:16→20:21)
[2023-03-18] MEDS: SENNOSIDES 8.6 MG (SENOKOT) TAB PO SCH ×2 (08:16→20:21)
--- NOTE | 2023-03-18 09:31 | Tele-ICU Consult ---
History of Present Illness History of Present Illness Date Seen by Provider: Mar 18, 2023 Time Seen by Provider: 09:29 History of Present Illness (Tele-ICU Physician , consultation as per request of PCP Service provided via interactive audio and video telecom[employer] [facility] system to a patient admitted to ICU bed in [facility], [place]. Available chart/ vitals / labs / Images reviewed H&P is from ER notes Patient's information available about PMH, Shx, Fhx allergy reviewed inEMR. ROS as per chart and RN report SEEN BY DR RUSSELL LAST NIGHT _ PLEASE SEE NOTE Now in ICU, hemodynamically stable Video assessment done using teleICU camera, rest of exam as per RN Discussed with RN. Events overnight : Afebrile hemodynamically stable Respiratory - VT I/O = pos Drips: Pressors- no Hospital course: RECENT ADMISSION 01/2023 - [place] for PNA with zisyn , was on VT/ BIPAP , prededex , steroids , eventially d/c home on 2 L o2 (03/17) 72 Y/O Female with Worsening Hypoxia secondary to Stage 4 Lung Ca with Mets, CTCh 03/17 - NO PE- New bibasilar airspace opacities 03/18 A/P Acute resp failure- VT 25L 45 % due to PNA anf Severe underlying emphysema - CTCh 03/17 - NO PE- New bibasilar airspace opacities - keep even or fluid status - IV steroids Decadron UTI - mak placed in ER 03/17 - await cx , on Zysyn PNA ? based by CT -Zosyn ( given immunocompr state ) Metastatic Lung Cancer -Diagnosed on 08/03/22 >Mets to bone and L adrenal gland - same sise by last CT -Diffuse bilateral interstitial thickening and course bilateral reticular opacities. 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 Discussed with RN to reach out if any questions or concerns A total of 37 minutes of critical care time was devoted to this patient today, required to treat and/or prevent further deterioration of critical care cond ition ( as above ) . This time includes Andrea Russell assessment last night I am remotely monitoring this patient from another state. I am unable to do the bedside exam, and history/physical and pertinent information is taken from other notes in the computer and bedside staff. Allergies and Home Medications Allergies Coded Allergies: fentanyl (Verified Allergy, Intermediate, 09/03/22) hallucinations codeine (Verified Allergy, Unknown, ITCH/HIVES, 09/03/22) Home Medications Albuterol Sulfate 1 Puff Puff, 2 PUFF INH Q4H PRN for SHORTNESS OF BREATH, (Reported) Alprazolam 0.5 Mg Tablet, 0.5 MG PO TID PRN for ANXIETY Prescribed by: FARA CAMPOS on 02/16/23 0813 Amlodipine Besylate 5 Mg Tablet, 5 MG PO DAILY, (Reported) Cyanocobalamin (Vitamin B-12) 500 Mcg Tablet, 500 MCG PO DAILY, (Reported) Docusate Sodium 100 Mg Capsule, 100 MG PO TID, (Reported) Fluticasone/Umeclidin/Vilanter 100-62.5 Blst.w.dev, 1 EACH IH 1200, (Reported) Folic Acid 1 Mg Tablet, 1 MG PO DAILY, (Reported) Ipratropium/Albuterol Sulfate 0.5 Mg-3 Mg (2.5 Mg Base)/3 Ml Ampul.neb, 3 ML NEB Q4H PRN for SHORTNESS OF BREATH, (Reported) Lisinopril 40 Mg Tablet, 20 MG PO DAILY, (Reported) TAKES OF A 40MG TAB Metoprolol Tartrate 100 Mg Tablet, 100 MG PO BID, (Reported) Morphine Sulfate 15 Mg Tablet.er, 15 MG PO Q8H, (Reported) Multivit-Minerals/Folic Acid 200 Mcg Tab.chew, 1 EA PO DAILY, (Reported) Oxycodone HCl 5 Mg Tablet, 5 MG PO Q4H PRN for PAIN-SEVERE (8-10), (Reported) Pantoprazole Sodium 40 Mg Tablet.dr, 40 MG PO 1200, (Reported) Prednisone 10 Mg Tab.ds.pk, 10 MG PO DAILY Take 6 tabs(60mg)daily,decrease by 1 tab(10mg)every other day. Prescribed by: FARA CAMPOS on 02/16/23 0812 Promethazine HCl 25 Mg Tablet, 25 MG PO Q6H PRN for NAUSEA/VOMITING-2ND LINE, (Reported) Rosuvastatin Calcium 20 Mg Tablet, 20 MG PO HS, (Reported) Past Medical/Social/Family Hx Patient Social History Tobacco Use?: No Smoking Status: Former Smoker Use of E-Cig and/or Vaping dev: No Substance use?: No Alcohol Use?: No Pt stated abuse/neglect: No Immunizations Up To Date Influenza Vaccine Up-to-Date: No; Not Current First/Initial COVID19 Vaccinat: 12/12/2020 [employer] Second COVID19 Vaccination Noe: 01/07/2021 [employer] Tetanus Booster (TDap): Unknown Hepatitis A: No Hepatitis B: No TB Skin Test: None Date of Pneumonia Vaccine: Jul 25, 2022 Current Status status: No status: No Advance Directives: Yes Advance Directive Location: Copy from prev record Communicates: Verbally Primary Language: Estonian Preferred Spoken Language: Estonian Is interpretation needed?: No Implanted or Applied Medical D: Port-a-cath Review of Systems Constitutional: see HPI Focused Exam Height, Weight, BMI Height: '" Weight: lbs. oz. kg; 18.20 BMI Method: Exam Exam Patient acknowledged, consented, and participated in this virtual visit which was conducted using real time audio/video Vital Signs Date Time Temp Pulse Resp B/P (MAP) Pulse Ox O2 Delivery O2 Flow Rate FiO2 03/18/23 09:00 121 20 103/69 (80) 92 Vapotherm 25.00 45.00 03/18/23 08:00 118 23 107/69 (82) 91 Vapotherm 25.00 45.00 03/18/23 07:33 36.6 03/18/23 07:04 Vapotherm 25.00 45.00 03/18/23 07:00 113 03/18/23 07:00 104 106/69 (81) 90 Vapotherm 25.00 50.00 03/18/23 06:49 92 Vapotherm 25.00 45 03/18/23 06:00 89 34 98/66 (77) 95 Vapotherm 25.00 50.00 03/18/23 05:00 96 24 91/66 (74) 94 Vapotherm 25.00 50.00 03/18/23 04:00 95 24 93/63 (73) 94 Vapotherm 25.00 50.00 03/18/23 03:55 92 Vapotherm 30.00 50 03/18/23 03:54 36.4 Vapotherm 25.00 50.00 03/18/23 03:00 101 18 96/66 (76) 94 Vapotherm 25.00 60.00 03/18/23 02:47 98 Vapotherm 25.00 60 03/18/23 02:00 86 21 96/65 (75) 97 Vapotherm 25.00 60.00 03/18/23 01:00 92 20 98/66 (77) 96 Vapotherm 25.00 60.00 03/18/23 01:00 92 03/18/23 00:08 37.5 Vapotherm 25.00 60.00 03/18/23 00:00 102 33 98/69 (79) 98 Vapotherm 30.00 70.00 03/18/23 00:00 99 Vapotherm 30.00 70 03/17/23 23:15 37.8 Vapotherm 30.00 70.00 03/17/23 23:00 112 15 115/70 (85) 95 Vapotherm 30.00 70.00 03/17/23 22:48 37.9 03/17/23 22:27 95 Vapotherm 30.00 70 03/17/23 22:17 38.3 03/17/23 22:09 96 Vapotherm 25.00 50 03/17/23 22:00 107 27 162/87 (112) 94 Vapotherm 30.00 70.00 03/17/23 21:59 Vapotherm 30.00 70.00 03/17/23 21:54 Vapotherm 30.00 70 03/17/23 21:52 108 03/17/23 21:39 36.4 92 92 50 03/17/23 21:20 103 20 153/98 93 Vapotherm 25.00 60.00 03/17/23 21:20 38.3 114 22 142/88 (106) 87 Vapotherm 25.00 65.00 03/17/23 18:17 96 Nasal Cannula 6.00 03/17/23 17:47 Nasal Cannula 4.00 03/17/23 17:47 36.4 92 17 136/106 (116) 92 OxyMask I & O 03/18/23 07:00 Intake Total 1400 ml Output Total 665 ml Balance 735 ml Height & Weight Height: '" Weight: lbs. oz. kg; 18.20 BMI Method: General Appearance: No Apparent Distress, Chronically ill Capillary Refill: Less Than 3 Seconds Gastrointestinal: soft Results Lab Laboratory Tests 03/17/23 18:05 03/18/23 03:47 Assessment/Plan Assessment/Plan 1 ARELI OROPEZA MD Mar 18, 2023 09:31
--- NOTE | 2023-03-18 10:10 | History & Physical-Hospitalist ---
BETTY GAMEZ 03/18/23 1010: History of Present Illness HPI/Chief Complaint Lyndsey Sosa is a 72yo with past medical history of Stage 4 Lung Cancer female presenting due to dyspnea that began about 2 days ago. Pt first noticed oxygen saturations started to drop without any other symptoms a couple days ago; Pt then started becoming dyspenic with daily home activities like standing up out of chair. Pt states that this has occurred before, and the last time was in january where she was hospitalized for pneumonia. Pt is DNR and DNI. Pt denies wheezing, cough, dizziness, and confusion. Pt endorses night sweats, fever, chills, and decrease in appetite. Date Seen 03/18/23 Attending Physician Oscar Garnett MD PCP Admitting Physician: Fara Campos MD Attending Physician: Fara Campos MD Referring Physician Date of Admission Mar 17, 2023 at 21:15 Home Medications & Allergies Home Medications Reviewed patient Home Medication Reconciliation performed by pharmacy medication reconciliations predictive maintenance technician and/or nursing. Patients Allergies have been reviewed. Allergies Allergies Coded Allergies fentanyl (Verified Allergy, Intermediate, 09/03/22) hallucinations codeine (Verified Allergy, Unknown, ITCH/HIVES, 09/03/22) Past Lyrbqwd-Uaqbyn-Ujldnd Hx Patient Social History Tobacco Use?: No Smoking Status: Former Smoker Use of E-Cig and/or Vaping dev: No Substance use?: No Alcohol Use?: No Pt feels they are or have been: No Immunizations Up To Date First/Initial COVID19 Vaccinat: 12/12/2020 [employer] Second COVID19 Vaccination Noe: 01/07/2021 [employer] Tetanus Booster (TDap): Unknown Hepatitis A: No Hepatitis B: No Date of Pneumonia Vaccine: Jul 25, 2022 Seasonal Allergies Seasonal Allergies: No Current Status status: No status: No Advance Directives: Yes Advance Directive Location: Copy from prev record Communicates: Verbally Primary Language: Romanian Preferred Spoken Language: Romanian Is interpretation needed?: No Implanted or Applied Medical D: Port-a-cath Past Medical History Surgeries: Abdominal, Hysterectomy Pneumonia, COPD Currently Using CPAP: No Currently Using BIPAP: No 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, 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 Kidney Stones, UTI-Chronic Chronic Back Pain Lung, Skin, Lymphoma Did You Recieve Any Treatments: Yes What Type of Treatment Did You: Chemotherapy Blood Disorders: No Family Medical History No Pertinent Family Hx Review of Systems Constitutional: chills; No dizziness; fever Respiratory: No cough; dyspnea on exertion, short of breath; No wheezing Gastrointestinal: No abdominal pain, No diarrhea; loss of appetite; No nausea, No vomiting Genitourinary: dysuria; No frequency, No incontinence Physical Exam Physical Exam Vital Signs Vital Signs - First Documented 03/17/23 03/17/23 17:47 21:39 Temp 36.4 Pulse 92 Resp 17 B/P (MAP) 136/106 (116) Pulse Ox 92 O2 Delivery OxyMask O2 Flow Rate 4.00 FiO2 50 Capillary Refill : Less Than 3 Seconds Height, Weight, BMI Height: '" Weight: lbs. oz. kg; 18.20 BMI Method: General Appearance: Chronically ill, Cachetic, Mild Distress Respiratory: Chest Non Tender, Lungs Clear; No Wheezing Cardiovascular: No Edema, No Murmur, Normal Peripheral Pulses, Tachycardia Gastrointestinal: Non Tender, Soft Extremity: Non Tender, No Calf Tenderness Neurologic/Psychiatric: Alert, Oriented x3 Skin: Normal Color, Warm/Dry Results Results/Procedures Labs Laboratory Tests 03/17/23 18:05 03/18/23 03:47 Patient resulted labs reviewed. Imaging CHEST 1 VIEW, AP/PA ONLY CHEST 1 VIEW, AP/PA ONLY INDICATION: SOB hypoxia. COMPARISON: Chest radiograph the 2022 . FINDINGS: Redemonstration of coarse reticular opacities bilaterally. There are new airspace opacities in the lung bases. Right pectoral Port-A-Cath. Cardiac silhouette is normal. Pulmonary vascularity is not well assessed due to overlying course of the reticular opacities. No acute osseous findings. No pleural effusion or pneumothorax. IMPRESSION: New airspace opacities in the lung bases may represent infection or atelectasis. Date of Exam:03/17/23 CT ANGIO CHEST W (R/O PE) EXAMINATION: CT chest TECHNIQUE: Postcontrast axial CTA of the chest obtained utilizing PE protocol. Coronal and sagittal reformats reconstructed. MIP reconstructions performed. HISTORY: Hypoxia on 4L (59-65%) COMPARISON: CTA of the chest on 01/13/2023 FINDINGS: No acute pulmonary emboli. New bibasilar airspace opacities. Diffuse bilateral interstitial thickening and course bilateral reticular opacities. There is no axillary or supraclavicular lymphadenopathy. There is no mediastinal lymphadenopathy. Heart size is enlarged. There are mild coronary artery calcifications. No pericardial effusion. Aorta is normal in caliber. Pulmonary artery is enlarged. Included views of the abdomen demonstrates a similar size of the bilateral adrenal masses. With left adrenal mass which measures 5.3 cm and the right adrenal nodule which measures 2 cm. The osseous structures demonstrate no lytic or sclerotic bone lesions. IMPRESSION: Diffuse bilateral interstitial thickening may be seen with atypical/parietal pneumonia or pulmonary interstitial edema. Additionally there is bibasilar airspace opacities which could represent infection or atelectasis. Cardiomegaly. Pulmonary hypertension. No acute pulmonary emboli. Cardiomegaly. Assessment/Plan Assessment and Plan Acute on Chronic Hypoxic Respiratory Failure Acute Exacerbation of COPD End-Stage COPD Pulmonary Cacexia Poor Prognosis Recurrent Hospitalizations CXR - New opacities b/l lung base; Infection v. Atelectasis Elevated D-Dimer CTA - No signs PE; Diffuse bilateral interstitial thickening may be seen with atypical/parietal pneumonia or pulmonary interstitial edema; Pulmonary HTN Start Systemic Corticosteroids Start Oxygen Supplementation as needed MAT Protocol Community Acquired Pneumonia CXR and CTA show signs suspicious of pneumonia Start IV Antibiotics HTN Pt's blood pressure is stable Will continue to monitor Home Blood Pressure Medication held for now Hypoalbuminemia Chronic issue due to malnutrition secondary to End-stage COPD Continue to monitor Stage-4 Lung Cancer Managed by Oncology; FARA Peñaloza MD 03/18/23 2253: History of Present Illness Source: patient Exam Limitations: no limitations Time Seen by a Provider: 10:15 Past Lqzkwrr-Skrcjy-Llfjba Hx Past Medical History COPD Lung Family Medical History No Pertinent Family Hx Results Results/Procedures Imaging: Reviewed Imaging Report Assessment/Plan Admission Diagnosis Acute on chronic respiratory failure with hypoxia Admission Status: Inpatient Order (span 2 midnights) Reason for Inpatient Admission: Respiratory failure Assessment and Plan Admitted with UTI and respiratory failure. Continue Vapotherm as needed. Started on IV antibiotics. Critical Care Critically Ill Patient Diagnosis/Problems Diagnosis/Problems (1) Acute on chronic respiratory failure with hypoxia Status: Acute (2) COPD (chronic obstructive pulmonary disease) Status: Acute (3) UTI (urinary tract infection) Status: Acute Qualifiers: Urinary tract infection type: site unspecified (4) Lung cancer Status: Acute Qualifiers: Laterality: unspecified laterality Lung location: unspecified part of lung Qualified Codes: C34.90 - Malignant neoplasm of unspecified part of unspecified bronchus or lung (5) Pain of metastatic malignancy Status: Chronic Supervisory-Addendum Brief Verification & Attestation Participated in pt care: history, MDM, physical Personally performed: exam, history, MDM, supervision of care Care discussed with: Medical Student Procedures: n/a Results interpretation: Verified all documentation A medical student performed and documented this service in my presence. I reviewed and verified all information documented by the medical student and made modifications to such information, when appropriate. I personally performed the physical exam and medical decision making. BETTY GAMEZ Mar 18, 2023 10:10 FARA CAMPOS MD Mar 18, 2023 22:53
[2023-03-18] MEDS: RT-LEVALBUTEROL (XOPENEX) 1.25 MG/3 ML NEB NON-FORMULARY INH SCH ×4 (10:38→22:38)
[2023-03-18] MEDS: NICOTINE 7 MG (NICODERM) PATCH TD SCH (11:36)
[2023-03-18] MEDS: LORazepam 0.5 MG (ATIVAN) TABLET PO PRN (17:08)
[2023-03-18] MEDS: ENOXAPARIN INJECTION 30 MG/0.3 ML SYR SC SCH (20:21)
[2023-03-19] MEDS: RT-LEVALBUTEROL (XOPENEX) 1.25 MG/3 ML NEB NON-FORMULARY INH SCH ×6 (02:27→22:17)
[2023-03-19] MEDS: PIPERACILLIN SODIUM/TAZOBACTAM 4.5 GM in NS (IVPB) 100 ML IV SCH ×3 (03:40→20:35)
[2023-03-19 03:48] LABS: EOSINOPHILS % (AUTO) 0 % (0-10); MEAN CORPUSCULAR HGB CONC 31 g/dL (32-36)
[2023-03-19 03:50] LABS: BASOPHILS % (AUTO) 0 % (0-10); HEMATOCRIT 25 % (35-52); HEMOGLOBIN 7.8 g/dL (11.5-16.0); LYMPHOCYTES # (AUTO) 0.6 10^3/uL (1.0-4.0); LYMPHOCYTES % (AUTO) 11 % (12-44); MEAN CORPUSCULAR HEMOGLOBIN 28 pg (25-34); MEAN CORPUSCULAR VOLUME 91 fL (80-99); MEAN PLATELET VOLUME 8.6 fL (9.0-12.2); MONOCYTES # (AUTO) 0.4 10^3/uL (0.0-1.0); MONOCYTES % (AUTO) 9 % (0-12); NEUTROPHILS # (AUTO) 3.9 10^3/uL (1.8-7.8); NEUTROPHILS % (AUTO) 79 % (42-75); PLATELET COUNT 132 10^3/uL (130-400)
[2023-03-19 04:00] LABS: ALBUMIN 2.9 GM/DL (3.2-4.5); POTASSIUM 3.8 MMOL/L (3.6-5.0)
[2023-03-19 04:01] LABS: CALCIUM 8.4 MG/DL (8.5-10.1)
[2023-03-19 04:02] LABS: TOTAL PROTEIN 4.8 GM/DL (6.4-8.2)
[2023-03-19] MEDS: POTASSIUM CL 10MEQ/50ML IVPB 50 ML IV SCH (04:02)
[2023-03-19] MEDS: KCL 20 MEQ TAB (K-DUR) PO SCH (04:03)
[2023-03-19 04:04] LABS: BILIRUBIN,TOTAL 0.3 MG/DL (0.1-1.0)
[2023-03-19 04:06] LABS: CREATININE SERUM 0.96 MG/DL (0.60-1.30); PHOSPHORUS 4.2 MG/DL (2.3-4.7)
[2023-03-19 04:09] LABS: MAGNESIUM 2.2 MG/DL (1.6-2.4)
[2023-03-19] MEDS: MAGNESIUM 1 GM/100 ML IVPB 100 ML IV SCH (04:15)
[2023-03-19] MEDS: morphine ER 15 MG (MS CONTIN) TAB PO SCH ×3 (05:38→21:42)
[2023-03-19] MEDS ORDERED: KCL 20 MEQ TAB (K-DUR) PO ONE (06:00)
[2023-03-19] MEDS: LORazepam 0.5 MG (ATIVAN) TABLET PO PRN ×2 (07:17→20:40)
[2023-03-19] MEDS: NICOTINE 7 MG (NICODERM) PATCH TD SCH (08:04)
[2023-03-19] MEDS: DOCUSATE SODIUM 100 MG (COLACE) CAP PO SCH ×2 (08:04→20:35)
[2023-03-19] MEDS: SENNOSIDES 8.6 MG (SENOKOT) TAB PO SCH ×2 (08:04→20:36)
[2023-03-19] MEDS: PATCH REMOVAL TP SCH (08:06)
[2023-03-19] MEDS ORDERED: VITA1TAB17 PO (10:29)
[2023-03-19] MEDS ORDERED: ALB0.5V INH (10:29)
[2023-03-19] MEDS ORDERED: ALPR0.5T7 PO (10:29)
--- NOTE | 2023-03-19 10:47 | Progress Note - Hospitalist ---
Subjective HPI/CC On Admission Date Seen by Provider: March 19, 2023 Subjective/Events-last exam Pt reports feeling well. No complaints. Breathing improved somewhat but still on Vapotherm. Requesting PT so she doesn't get as weak this time. Objective Exam Vital Signs Vital Signs Date Time Temp Pulse Resp B/P (MAP) Pulse Ox O2 Delivery O2 Flow Rate FiO2 03/19/23 10:00 123 21 135/79 (97) 92 Vapotherm 20.00 35.00 03/19/23 08:00 35 03/19/23 08:00 36.5 Capillary Refill : Less Than 3 Seconds General Appearance: Chronically ill, Cachetic Respiratory: No Accessory Muscle Use, Decreased Breath Sounds, Other (on vapotherm) Cardiovascular: Regular Rate, Rhythm, No Murmur Gastrointestinal: Normal Bowel Sounds, Soft Neurologic/Psychiatric: Alert, Oriented x3 Results/Procedures Lab Laboratory Tests 03/19/23 03:40 Patient resulted labs reviewed. Imaging: Reviewed Imaging Report Assessment/Plan Assessment and Plan Assess & Plan/Chief Complaint Acute on Chronic Hypoxic Respiratory Failure Acute Exacerbation of COPD with lower respiratory tract infection- CAP End-Stage COPD Metastatic Lung Cancer Poor Prognosis Continue steroids Wean Vapotherm, discussed with RN MAT Protocol Continue IV abx TeleICU consulted, appreciate recs I attempted to called Dr Marroquin to update- she reports she has a scan next we ek to see if she can restart her immune therapy HTN HLD GERD BP well controlled, trend No acute needs Debility PT/OT DVT ppx: Lovenox Critical Care Critically Ill Patient RONEN PÉREZ MD March 19, 2023 10:47
[2023-03-19] MEDS: NYSTATIN ORAL SUSP 5 ML UDC PO SCH ×2 (11:10→17:28)
[2023-03-19] MEDS: morphine INJ 4 MG/ML 1 ML (VIAL/SYRINGE) IVP PRN ×2 (14:22→18:11)
--- NOTE | 2023-03-19 15:07 | Physical Therapy Evaluation ---
PT Evaluation-General Medical Diagnosis Admission Date Mar 17, 2023 at 21:15 Medical Diagnosis: UTI/hypoxia Onset Date: Mar 17, 2023 Therapy Diagnosis Therapy Diagnosis: debility/weakness Precautions Precautions/Isolations: Fall Prevention, Standard Precautions, Pressure Ulcer Referral Physician: Niyah Reason for Referral: Evaluation/Treatment Medical History Pertinent Medical History: COPD, HTN, Smoking Current History ER secondary to hypoxia Reviewed History: Yes Social History Home: Apartment Current Living Status: Alone Entry Into Home: Level Entry Prior Prior Level of Function SCALE: Activities may be completed with or without assistive devices. 3-Tnejpdkrdv-hzrudld completes the activity by him/herself with no assistance from a helper. 5-Set-up or Clean-up Assistance-helper sets up or cleans up; patient completes activity. [place] assists only prior to or following the activity. 4-Supervision or Touching Assistance-helper provides verbal cues and/or touching/steadying and/or contact guard assistance as patient completes activity. Assistance may be provided throughout the activity or intermittently. 3-Partial/Moderate Assistance-helper does LESS THAN HALF the effort. [place] lifts, holds or supports trunk or limbs, but provides less than half the effort. 2-Substantial/Maximal Assistance-helper does MORE THAN HALF the effort. [place] lifts or holds trunk or limbs and provides more than half the effort. 3-Vdairdmww-rgxoex does ALL the effort. Patient does none of the effort to complete the activity. Or, the assistance of 2 or more helpers is required for the patient to complete the activity. If activity was not attempted, code reason: 7-Patient Refused. 9-Not Applicable-not attempted and the patient did not perform the activity before the current illness, exacerbation or injury. 10-Not Attempted due to Environmental Limitations-(lack of equipment, weather restraints, etc.). 88-Not Attempted due to Medical Conditions or Safety Concerns. Bed Mobility: 6 Transfers (B,C,W/C): 6 Gait: 6 Indoor Mobility (Ambulation): Independent Prior Devices Use: Walker PT Evaluation-Current Subjective Patient agrees to PT. Objective Patient Orientation: Normal For Age Attachments: Oxygen (vapotherm), Vo Catheter, IV ROM/Strength ROM Lower Extremities bilateral LE WFL Strength Lower Extremities 3/5 grossly bilateral LE Integumentary/Posture Bowel Incontinence: No Bladder Incontinence: Vo Cath Posture WFL Neuromuscular (Tone, Coordination, Reflexes) grossly intact Sensory Vision: Functional Hearing: Functional Transfers Sit to Lying (QC): 6 Lying to Sitting/Side of Bed(Q: 6 Sit to Stand (QC): 4 Gait Mode of Locomotion: Walk Anticipated Mode of Locomotion: Walk Gait Assistive Device: FWW Balance Sitting Static: Normal Sitting Dynamic: Normal Standing Static: Fair Standing Dynamic: Fair Assessment/Needs Noted decreased SAO2 with minimal activity. Patient requires time to recover. Patient will benefit from skilled PT to address functional strength and mobility to improve current LOF. Rehab Potential: Poor PT Care Home Goals Care Home Goals PT Care Home Goals Time Frame: March 31, 2023 Roll Left & Right (QC): 6 Sit to Lying (QC): 6 Lying-Sitting on Side/Bed(QC): 6 Sit to Stand (QC): 6 Chair/Yhh-kj-Rrayz Xfer(QC): 6 Toilet Transfer (QC): 6 Walk 10 feet (QC): 4 PT Plan Problem List Problem List: Activity Tolerance, Functional Strength, Safety, Balance, Gait, Transfer, Bed Mobility Treatment/Plan Treatment Plan: Continue Plan of Care Treatment Plan: Bed Mobility, Education, Functional Activity Andra, Functional Strength, Gait, Safety, Therapeutic Exercise, Transfers Treatment Duration: March 31, 2023 Frequency: 6 times per week Estimated Hrs Per Day: .25 hour per day Patient and/or Family Agrees t: Yes Time Time In: 1425 Time Out: 1435 DATE: March 19, 2023 Total Billed Treatment Time: 10 Total Billed Treatment [address] [facility] 10 min ELISSA VALLE PT March 19, 2023 15:07
--- NOTE | 2023-03-19 15:11 | Occupational Therapy Eval ---
OT Evaluation-General/PLF Medical Diagnosis Admission Date Mar 17, 2023 at 21:15 Medical Diagnosis: HYPOXIA Onset Date: Mar 17, 2023 Therapy Diagnosis Therapy Diagnosis: WEAKNESS, SOA Precautions Precautions/Isolations: Fall Prevention, Standard Precautions, Pressure Ulcer Weight Bear Status Weight Bearing Restriction: Full Weight Bearing Referral Referral Reason: Activity Tolerance, Self Care, Evaluation/Treatment Medical History Pertinent Medical History: COPD, HTN, Smoking Additional Medical History LUNG CA Current History ADMISSION TO THIS HOSPITAL 01/17/23 W/ STAY AT ICU, [facility] AND [facility]. [place] HOME W/ HOME HEALTH 02/19/23 Reviewed History: Yes Social History Home: Apartment ([facility]) Current Living Status: Alone Entry Into Home: Level Entry ADL-Prior Level of Function SCALE: Activities may be completed with or without assistive devices. 6-Htsovezxtj-ygyfbgm completes the activity by him/herself with no assistance from a helper. 5-Set-up or Clean-up Assistance-helper sets up or cleans up; patient completes activity. [place] assists only prior to or following the activity. 4-Supervision or Touching Assistance-helper provides verbal cues and/or touching/steadying and/or contact guard assistance as patient completes activity. Assistance may be provided throughout the activity or intermittently. 3-Partial/Moderate Assistance-helper does LESS THAN HALF the effort. [place] lifts, holds or supports trunk or limbs, but provides less than half the effort. 2-Substantial/Maximal Assistance-helper does MORE THAN HALF the effort. [place] lifts or holds trunk or limbs and provides more than half the effort. 6-Rtsuokkti-nxyjqf does ALL the effort. Patient does none of the effort to complete the activity. Or, the assistance of 2 or more helpers is required for the patient to complete the activity. If activity was not attempted, code reason: 7-Patient Refused. 9-Not Applicable-not attempted and the patient did not perform the activity before the current illness, exacerbation or injury. 10-Not Attempted due to Environmental Limitations-(lack of equipment, weather restraints, etc.). 88-Not Attempted due to Medical Conditions or Safety Concerns. Self Care: Needed Some Help Functional Cognition: Independent Drive Self: No OT Current Status Subjective RECLINED IN BED, AGREEABLE TO THERAPY Mental Status/Objective Patient Orientation: Person, Place, Time, Situation Attachments: Vo Catheter, IV, Oxygen, SCD's, Telemetry Current Upper Extremity ROM BUE ROM WFLS Upper Extremity Coordination INTACT Upper Extremity Strength +3/5 GROSSLY ADL-Treatment Eating (QC): 5 Oral Hygiene (QC): 5 (SET UP IN SITTING EOB) Shower/Bathe Self (QC): 7 Upper Body Dressing (QC): 4 Lower Body Dressing (QC): 4 (EXTRA TIME, SOA) On/Off Footwear (QC): 4 Toileting Hygiene (QC): 3 Education OT Patient Education: Correct positioning, Disease process, Energy conservation, Exercise program, Modified ADL techniques, Progress toward Goal/ Update tx plan, Purpose of tx/functional activities, Reviewed precautions, Rehab process, Safety issues, Transfer techniques Teaching Recipient: Patient Teaching Methods: Demonstration, Discussion Response to Teaching: Verbalize Understanding, Reinforcement Needed OT Residential Goals Rotational Moulding Operator Goals Eating (QC): 6 Oral Hygiene (QC): 5 Toileting Hygiene (QC): 5 Shower/Bathe Self (QC): 4 Upper Body Dressing (QC): 5 Lower Body Dressing (QC): 5 On/Off Footwear (QC): 5 1=Demonstrate adherence to instructed precautions during ADL tasks. 2=Patient will verbalize/demonstrate understanding of assistive devices/modifications for ADL. 3=Patient will improve strength/tolerance for activity to enable patient to perform ADL's. OT Education/Plan Problem List/Assessment Assessment: Decreased Activ Tolerance, Decreased Safety Aware, Decreased UE Strength, Impaired Self-Care Skills Discharge Recommendations Plan/Recommendations: Continue POC Therapy Discharge Recommendati: Post Acute OT (RESUME HH) Treatment Plan/Plan of Care Treatment,Training & Education: Yes Patient would benefit from OT for education, treatment and training to promote independence in ADL's, mobility, safety and/or upper extremity function for ADL's. Plan of Care: ADL Retraining, Functional Mobility, Group Exercise/Act as Ind, UE Funct Exercise/Act Treatment Duration: March 24, 2023 Frequency: 3 times per week (3-5 TIMES PER WEEK) Time Start Time: 13:30 Stop Time: 13:50 DATE: March 19, 2023 Total Time Billed (hr/min): 20 Billed Treatment Time EVM 20 MIN TREVOR SILVERMAN OT March 19, 2023 15:11
[2023-03-19] MEDS ORDERED: DOCUSATE SODIUM 100 MG (COLACE) CAP PO PRN (16:30)
[2023-03-19] MEDS ORDERED: PROMETHAZINE 25 MG (PHENERGAN) TAB PO PRN (16:30)
[2023-03-19] MEDS: ROSUVASTATIN 20 MG (CRESTOR) TABLET PO SCH (20:35)
[2023-03-19] MEDS: meTOprolol TARTRATE 50 MG (LOPRESSOR) TAB PO SCH (20:36)
[2023-03-19] MEDS ORDERED: ENOXAPARIN 40 MG/0.4 ML (LOVENOX) SYR SC SCH (21:00)
[2023-03-19] MEDS ORDERED: NON-FORMULARY MEDICATION 1 EA EA (Metoprolol Tartrate 100 MG) PO SCH (21:00)
[2023-03-19] MEDS: RT--FLUTICASONE/SALMETEROL 232-14 (AIRDUO RespiCLICK) IH SCH (22:16)
[2023-03-20] MEDS: NYSTATIN ORAL SUSP 5 ML UDC PO SCH ×3 (00:12→18:07)
[2023-03-20] MEDS: RT-LEVALBUTEROL (XOPENEX) 1.25 MG/3 ML NEB NON-FORMULARY INH SCH ×7 (02:26→22:29)
[2023-03-20] MEDS: PIPERACILLIN SODIUM/TAZOBACTAM 4.5 GM in NS (IVPB) 100 ML IV SCH (03:59)
[2023-03-20 04:28] LABS: BASOPHILS % (AUTO) 0 % (0-10); EOSINOPHILS % (AUTO) 0 % (0-10); HEMATOCRIT 30 % (35-52); LYMPHOCYTES # (AUTO) 1.1 10^3/uL (1.0-4.0); LYMPHOCYTES % (AUTO) 11 % (12-44); MEAN CORPUSCULAR HEMOGLOBIN 28 pg (25-34); MEAN CORPUSCULAR HGB CONC 30 g/dL (32-36); MEAN CORPUSCULAR VOLUME 93 fL (80-99); MEAN PLATELET VOLUME 9.1 fL (9.0-12.2); MONOCYTES # (AUTO) 0.8 10^3/uL (0.0-1.0); MONOCYTES % (AUTO) 8 % (0-12); NEUTROPHILS # (AUTO) 7.5 10^3/uL (1.8-7.8); NEUTROPHILS % (AUTO) 78 % (42-75); PLATELET COUNT 166 10^3/uL (130-400); WHITE BLOOD COUNT 9.7 10^3/uL (4.3-11.0)
[2023-03-20 05:12] LABS: ALBUMIN 3.3 GM/DL (3.2-4.5); BILIRUBIN,TOTAL 0.3 MG/DL (0.1-1.0); CALCIUM 8.8 MG/DL (8.5-10.1); CREATININE SERUM 0.86 MG/DL (0.60-1.30); MAGNESIUM 1.9 MG/DL (1.6-2.4); PHOSPHORUS 4.2 MG/DL (2.3-4.7); POTASSIUM 4.4 MMOL/L (3.6-5.0); TOTAL PROTEIN 5.3 GM/DL (6.4-8.2)
[2023-03-20] MEDS: POTASSIUM CL 10MEQ/50ML IVPB 50 ML IV SCH (05:14)
[2023-03-20] MEDS: KCL 20 MEQ TAB (K-DUR) PO SCH (05:14)
[2023-03-20] MEDS: MAGNESIUM 1 GM/100 ML IVPB 100 ML IV SCH (05:14)
[2023-03-20] MEDS: morphine ER 15 MG (MS CONTIN) TAB PO SCH ×3 (05:53→22:12)
[2023-03-20] MEDS: RT--FLUTICASONE/SALMETEROL 232-14 (AIRDUO RespiCLICK) IH SCH ×2 (10:50→18:45)
[2023-03-20] MEDS: UMECLIDINIUM BROMIDE (INCRUSE ELLIPTA) 7'S IH SCH (10:50)
--- NOTE | 2023-03-20 11:26 | Progress Note - Hospitalist ---
Subjective HPI/CC On Admission Date Seen by Provider: March 20, 2023 Subjective/Events-last exam Pt reports feeling about the same. Off of Vapotherm though. Ready to work with PT today though. Objective Exam Vital Signs Vital Signs Date Time Temp Pulse Resp B/P (MAP) Pulse Ox O2 Delivery O2 Flow Rate FiO2 03/20/23 04:00 36.0 03/20/23 04:00 93 High Flow N/C 7.00 03/20/23 03:00 78 15 150/90 (110) 03/19/23 12:56 35 Capillary Refill : Less Than 3 Seconds General Appearance: No Apparent Distress, Chronically ill, Cachetic Respiratory: Lungs Clear, No Respiratory Distress Cardiovascular: Regular Rate, Rhythm, No Murmur Neurologic/Psychiatric: Alert, Oriented x3 Results/Procedures Lab Laboratory Tests 03/20/23 04:00 Patient resulted labs reviewed. Imaging: Reviewed Imaging Report Assessment/Plan Assessment and Plan Assess & Plan/Chief Complaint Acute on Chronic Hypoxic Respiratory Failure Acute Exacerbation of COPD with lower respiratory tract infection- CAP End-Stage COPD Metastatic Lung Cancer Poor Prognosis Continue steroids on HFNC MAT Protocol Continue IV abx TeleICU consulted, appreciate recs Dr Marroquin aware of admission, will follow when outpatient HTN HLD GERD BP well controlled, trend Continue home metoprolol No acute needs Debility PT/OT DVT ppx: Lovenox Critical Care Critically Ill Patient RONEN PÉREZ MD March 20, 2023 11:26
[2023-03-20] MEDS ORDERED: NON-FORMULARY MEDICATION 1 EA EA (Fluticasone/Umeclidin/Vilanter (Trelegy Ellipta 100-62.5 IH SCH (12:00)
[2023-03-20] MEDS ORDERED: PIPERACILLIN/TAZO 4.5 GM VIAL (ZOSYN) IV ONE (12:32)
[2023-03-20] MEDS ORDERED: NS (IVPB) 100 ML ONE (12:35)
--- NOTE | 2023-03-20 15:14 | Diagnostic Imaging Report ---
Indication: Pneumonia Comparison: 03/17/2023 Findings: While there is a chronic interstitial lung abnormality present the more acute superimposed bilateral infiltrates have improved in the interim and are most notable in the lung bases and right greater than left upper lobes. Small right pleural effusion not clearly changed. Impression: Improvements in bilateral infiltrates superimposed upon chronic lung disease with no adverse development. Dictated by: Dictated on workstation # [id number]
[2023-03-20] MEDS: AUGMENTIN 875 MG TAB (AMOXICILLIN/CLAVULANATE) PO SCH (18:07)
[2023-03-20] MEDS: FOLIC ACID 1 MG TAB PO SCH (19:19)
[2023-03-20] MEDS: NICOTINE 7 MG (NICODERM) PATCH TD SCH (19:19)
[2023-03-20] MEDS: DOCUSATE SODIUM 100 MG (COLACE) CAP PO SCH ×2 (19:19→20:03)
[2023-03-20] MEDS: SENNOSIDES 8.6 MG (SENOKOT) TAB PO SCH ×2 (19:19→20:03)
[2023-03-20] MEDS: PATCH REMOVAL TP SCH (19:19)
[2023-03-20] MEDS: meTOprolol TARTRATE 50 MG (LOPRESSOR) TAB PO SCH ×2 (19:19→20:03)
[2023-03-20] MEDS: PANTOPRAZOLE 40 MG (PROTONIX) TAB PO SCH (19:20)
[2023-03-20 20:01] VITALS: BP 124/77
[2023-03-20] MEDS: ROSUVASTATIN 20 MG (CRESTOR) TABLET PO SCH (20:03)
[2023-03-20] MEDS: ENOXAPARIN INJECTION 30 MG/0.3 ML SYR SC SCH (20:03)
[2023-03-20] MEDS: LORazepam 0.5 MG (ATIVAN) TABLET PO PRN (20:09)
[2023-03-20 23:28] VITALS: BP 134/84
[2023-03-21] VITALS (8 sets, daily range): BP systolic 104–134; BP diastolic 53–87
[2023-03-21] MEDS: NYSTATIN ORAL SUSP 5 ML UDC PO SCH ×5 (00:14→23:09)
[2023-03-21] MEDS: RT-LEVALBUTEROL (XOPENEX) 1.25 MG/3 ML NEB NON-FORMULARY INH SCH ×4 (02:29→20:36)
[2023-03-21] MEDS: morphine ER 15 MG (MS CONTIN) TAB PO SCH ×3 (05:22→22:24)
[2023-03-21 05:23] LABS: BASOPHILS % (AUTO) 0 % (0-10); EOSINOPHILS % (AUTO) 0 % (0-10); HEMATOCRIT 31 % (35-52); HEMOGLOBIN 9.6 g/dL (11.5-16.0); LYMPHOCYTES # (AUTO) 1.4 10^3/uL (1.0-4.0); LYMPHOCYTES % (AUTO) 15 % (12-44); MEAN CORPUSCULAR HEMOGLOBIN 28 pg (25-34); MEAN CORPUSCULAR HGB CONC 31 g/dL (32-36); MEAN CORPUSCULAR VOLUME 91 fL (80-99); MEAN PLATELET VOLUME 8.9 fL (9.0-12.2); MONOCYTES # (AUTO) 0.7 10^3/uL (0.0-1.0); MONOCYTES % (AUTO) 8 % (0-12); NEUTROPHILS # (AUTO) 6.2 10^3/uL (1.8-7.8); NEUTROPHILS % (AUTO) 71 % (42-75); PLATELET COUNT 184 10^3/uL (130-400); WHITE BLOOD COUNT 8.8 10^3/uL (4.3-11.0)
[2023-03-21 05:57] LABS: ALBUMIN 3.2 GM/DL (3.2-4.5); BILIRUBIN,TOTAL 0.2 MG/DL (0.1-1.0); CALCIUM 8.7 MG/DL (8.5-10.1); CREATININE SERUM 0.85 MG/DL (0.60-1.30); MAGNESIUM 1.8 MG/DL (1.6-2.4); PHOSPHORUS 4.1 MG/DL (2.3-4.7); POTASSIUM 4.4 MMOL/L (3.6-5.0); TOTAL PROTEIN 5.1 GM/DL (6.4-8.2)
[2023-03-21] MEDS: KCL 20 MEQ TAB (K-DUR) PO SCH (06:15)
[2023-03-21] MEDS: POTASSIUM CL 10MEQ/50ML IVPB 50 ML IV SCH (06:15)
[2023-03-21 06:19] LABS: SMEAR SCAN COMMENT YES
[2023-03-21] MEDS: MAGNESIUM 1 GM/100 ML IVPB 100 ML IV SCH ×3 (06:22→09:50)
[2023-03-21] MEDS: UMECLIDINIUM BROMIDE (INCRUSE ELLIPTA) 7'S IH SCH (06:35)
[2023-03-21] MEDS: RT--FLUTICASONE/SALMETEROL 232-14 (AIRDUO RespiCLICK) IH SCH (06:35)
[2023-03-21] MEDS: SENNOSIDES 8.6 MG (SENOKOT) TAB PO SCH ×2 (09:50→20:03)
[2023-03-21] MEDS: DOCUSATE SODIUM 100 MG (COLACE) CAP PO SCH ×2 (09:50→20:02)
[2023-03-21] MEDS: meTOprolol TARTRATE 50 MG (LOPRESSOR) TAB PO SCH ×2 (09:50→20:02)
[2023-03-21] MEDS: FOLIC ACID 1 MG TAB PO SCH (09:50)
[2023-03-21] MEDS: AUGMENTIN 875 MG TAB (AMOXICILLIN/CLAVULANATE) PO SCH ×2 (09:50→17:37)
[2023-03-21] MEDS: NICOTINE 7 MG (NICODERM) PATCH TD SCH (09:50)
[2023-03-21] MEDS: PATCH REMOVAL TP SCH (11:41)
--- NOTE | 2023-03-21 11:51 | Progress Note - Hospitalist ---
Subjective HPI/CC On Admission Date Seen by Provider: March 21, 2023 Subjective/Events-last exam Pt reports feeling about the same. Asks if she will get septic or pneumonia again. We discussed the risks of recurrent pneumonia given his chronic lung disease and cancer especially in conjunction with chemotherapy. Objective Exam Vital Signs Vital Signs Date Time Temp Pulse Resp B/P (MAP) Pulse Ox O2 Delivery O2 Flow Rate FiO2 03/21/23 08:00 High Flow N/C 6.00 03/21/23 08:00 35.9 74 18 130/70 (90) 100 03/19/23 12:56 35 Capillary Refill : Less Than 3 Seconds General Appearance: No Apparent Distress Respiratory: Lungs Clear, No Respiratory Distress, Other (on 7lpm) Cardiovascular: Regular Rate, Rhythm, No Murmur Neurologic/Psychiatric: Alert, Oriented x3 Results/Procedures Lab Laboratory Tests 03/21/23 05:15 Patient resulted labs reviewed. Imaging: Reviewed Imaging Report Assessment/Plan Assessment and Plan Assess & Plan/Chief Complaint Acute on Chronic Hypoxic Respiratory Failure Acute Exacerbation of COPD with lower respiratory tract infection- CAP End-Stage COPD Metastatic Lung Cancer Poor Prognosis Continue steroids on HFNC MAT Protocol Continue oral abx Dr Marroquin aware of admission, will follow when outpatient Wean oxygen- baseline is 4lpm HTN HLD GERD BP well controlled, trend Continue home metoprolol No acute needs Debility PT/OT DVT ppx: Lovenox Critical Care Critically Ill Patient RONEN PÉREZ MD March 21, 2023 11:51
[2023-03-21] MEDS: PANTOPRAZOLE 40 MG (PROTONIX) TAB PO SCH (12:23)
--- NOTE | 2023-03-21 15:49 | Physical Therapy Daily Note ---
PT Daily Note-Current Subjective Patient sitting up in bed upon PT arrival, agreeable to treatment. Rates pain at 0/10. Pain Section J - Health Conditions 1. Rarely or not at all 2. Occasionally 3. Frequently 4. Almost constantly 8. Unable to answer Pain Effect on Sleep: 1 Pain Interference with Therapy: 1 Pain Interference w/Day-to-Day: 1 Mental Status Patient Orientation: Person, Place, Time, Situation Transfers SCALE: Activities may be completed with or without assistive devices. 2-Wtqffpwigl-bvyftnk completes the activity by him/herself with no assistance from a helper. 5-Set-up or Clean-up Assistance-helper sets up or cleans up; patient completes activity. [place] assists only prior to or following the activity. 4-Supervision or Touching Assistance-helper provides verbal cues and/or touching/steadying and/or contact guard assistance as patient completes activity. Assistance may be provided throughout the activity or intermittently. 3-Partial/Moderate Assistance-helper does LESS THAN HALF the effort. [place] lifts, holds or supports trunk or limbs, but provides less than half the effort. 2-Substantial/Maximal Assistance-helper does MORE THAN HALF the effort. [place] lifts or holds trunk or limbs and provides more than half the effort. 8-Wsuwaljbl-jutjod does ALL the effort. Patient does none of the effort to co mplete the activity. Or, the assistance of 2 or more helpers is required for the patient to complete the activity. If activity was not attempted, code reason: 7-Patient Refused. 9-Not Applicable-not attempted and the patient did not perform the activity before the current illness, exacerbation or injury. 10-Not Attempted due to Environmental Limitations-(lack of equipment, weather restraints, etc.). 88-Not Attempted due to Medical Conditions or Safety Concerns. Roll Left & Right (QC): 4 Sit to Lying (QC): 4 Lying to Sitting/Side of Bed(Q: 4 Sit to Stand (QC): 4 Chair/Gtz-xx-Vddcv Xfer(QC): 4 Gait Training Does the Patient Walk?: Yes Distance: 350 feet Walk 10 feet (QC): 4 Walk 50 ft with 2 Turns(QC): 4 Walk 150 ft (QC): 4 Gait Assistive Device: FWW Assessment Current Status: Excellent Progress Patient tolerated treatment well. She performs all mobility and transfers with SBA. Patient ambulates 350 feet with FWW, with SBA and verbal cues for safety, progression, and conservation of energy. Patient in bed post treatment with all needs met, nursing notified, call light in hand. PT Parking Manager Goals Parking Manager Goals PT Parking Manager Goals Time Frame: March 31, 2023 Roll Left & Right (QC): 6 Sit to Lying (QC): 6 Lying-Sitting on Side/Bed(QC): 6 Sit to Stand (QC): 6 Chair/Mjg-kw-Ufaqf Xfer(QC): 6 Toilet Transfer (QC): 6 Walk 10 feet (QC): 4 PT Plan Treatment/Plan Treatment Plan: Continue Plan of Care Treatment Plan: Bed Mobility, Education, Functional Activity Andra, Functional Strength, Gait, Safety, Therapeutic Exercise, Transfers Treatment Duration: March 31, 2023 Frequency: 6 times per week Estimated Hrs Per Day: .25 hour per day Patient and/or Family Agrees t: Yes Safety Risks/Education Patient Education: Gait Training, Transfer Techniques Teaching Recipient: Patient Teaching Methods: Demonstration, Discussion Response to Teaching: Verbalize Understanding, Return Demonstration Time Time In: 1530 Time Out: 1544 DATE: March 21, 2023 Total Billed Treatment Time: 13 Total Billed Treatment Visit, LUPE Perez PT March 21, 2023 15:49
--- NOTE | 2023-03-21 16:09 | Occupational Ther Daily Note ---
OT Current Status-Daily Note Subjective Patient transfer from ICU to 4 medical, request room set up w/ OT Mental Status/Objective Patient Orientation: Person, Place, Time, Situation Attachments: Oxygen ADL-Treatment Therapy Code Descriptions/Definitions Functional [place] Measure: 0=Not Assessed/NA 4=Minimal Assistance 1=Total Assistance 5=Supervision or Setup 2=Maximal Assistance 6=Modified [place] 3=Moderate Assistance 7=Complete IndependenceSCALE: Activities may be completed with or without assistive devices. 4-Gjlzkxbybs-cnwohxt completes the activity by him/herself with no assistance from a helper. 5-Set-up or Clean-up Assistance-helper sets up or cleans up; patient completes activity. [place] assists only prior to or following the activity. 4-Supervision or Touching Assistance-helper provides verbal cues and/or touching/steadying and/or contact guard assistance as patient completes activity. Assistance may be provided throughout the activity or intermittently. 3-Partial/Moderate Assistance-helper does LESS THAN HALF the effort. [place] lifts, holds or supports trunk or limbs, but provides less than half the effort. 2-Substantial/Maximal Assistance-helper does MORE THAN HALF the effort. [place] lifts or holds trunk or limbs and provides more than half the effort. 9-Qaiupghvh-thktqm does ALL the effort. Patient does none of the effort to complete the activity. Or, the assistance of 2 or more helpers is required for the patient to complete the activity. If activity was not attempted, code reason: 7-Patient Refused. 9-Not Applicable-not attempted and the patient did not perform the activity before the current illness, exacerbation or injury. 10-Not Attempted due to Environmental Limitations-(lack of equipment, weather restraints, etc.). 88-Not Attempted due to Medical Conditions or Safety Concerns. Eating (QC): 6 (OT provided orange sherbet upon request) Oral Hygiene (QC): 6 (w/ swab sponge, d/t no teeth) Shower/Bathe Self (QC): 7 (declined) Upper Body Dressing (QC): 5 (gown) Lower Body Dressing (QC): 5 (pull up brief, socks on) On/Off Footwear: 5 Toileting Hygiene (QC): 5 Toilet Transfer (QC): 5 (BSC beside bed, hygiene products placed in reach, trash can in reach) Education OT Patient Education: Energy conservation, Modified ADL techniques, Purpose of tx/functional activities, Reviewed precautions, Safety issues, Transfer techniques Teaching Recipient: Patient Teaching Methods: Discussion OT Restaurant Assistant Goals Custodial Goals Eating (QC): 6 Oral Hygiene (QC): 5 Toileting Hygiene (QC): 5 Shower/Bathe Self (QC): 4 Upper Body Dressing (QC): 5 Lower Body Dressing (QC): 5 On/Off Footwear (QC): 5 1=Demonstrate adherence to instructed precautions during ADL tasks. 2=Patient will verbalize/demonstrate understanding of assistive devices/modifications for ADL. 3=Patient will improve strength/tolerance for activity to enable patient to perform ADL's. OT Education/Plan Problem List/Assessment Assessment: Decreased Activ Tolerance, Impaired Self-Care Skills Discharge Recommendations Plan/Recommendations: Continue POC Therapy Discharge Recommendati: Home & Family, Post Acute OT Comment Patient request home w/ therapy and family assist Treatment Plan/Plan of Care Patient would benefit from OT for education, treatment and training to promote independence in ADL's, mobility, safety and/or upper extremity function for ADL's. Plan of Care: ADL Retraining, Functional Mobility, Group Exercise/Act as Ind, UE Funct Exercise/Act Treatment Duration: March 24, 2023 Frequency: 3 times per week (3-5 TIMES PER WEEK) Rehab Potential: Poor Time Start Time: 15:56 Stop Time: 16:08 DATE: March 21, 2023 Total Time Billed (hr/min): 12 Billed Treatment Time ADL 12 min TREVOR SILVERMAN OT March 21, 2023 16:09
[2023-03-21] MEDS: LORazepam 0.5 MG (ATIVAN) TABLET PO PRN (20:01)
[2023-03-21] MEDS: ROSUVASTATIN 20 MG (CRESTOR) TABLET PO SCH (20:02)
[2023-03-21] MEDS: ENOXAPARIN INJECTION 30 MG/0.3 ML SYR SC SCH (20:03)
[2023-03-22 03:16] VITALS: BP 110/69
[2023-03-22] MEDS: morphine ER 15 MG (MS CONTIN) TAB PO SCH ×2 (05:20→14:04)
[2023-03-22] MEDS: NYSTATIN ORAL SUSP 5 ML UDC PO SCH ×2 (05:20→12:58)
[2023-03-22 05:32] LABS: BASOPHILS % (AUTO) 0 % (0-10); EOSINOPHILS % (AUTO) 0 % (0-10); HEMATOCRIT 31 % (35-52); HEMOGLOBIN 9.5 g/dL (11.5-16.0); LYMPHOCYTES # (AUTO) 1.2 10^3/uL (1.0-4.0); LYMPHOCYTES % (AUTO) 14 % (12-44); MEAN CORPUSCULAR HEMOGLOBIN 28 pg (25-34); MEAN CORPUSCULAR HGB CONC 31 g/dL (32-36); MEAN CORPUSCULAR VOLUME 91 fL (80-99); MEAN PLATELET VOLUME 8.7 fL (9.0-12.2); MONOCYTES # (AUTO) 0.7 10^3/uL (0.0-1.0); MONOCYTES % (AUTO) 8 % (0-12); NEUTROPHILS # (AUTO) 5.8 10^3/uL (1.8-7.8); NEUTROPHILS % (AUTO) 69 % (42-75); PLATELET COUNT 173 10^3/uL (130-400); WHITE BLOOD COUNT 8.4 10^3/uL (4.3-11.0)
[2023-03-22 05:48] LABS: POTASSIUM 4.4 MMOL/L (3.6-5.0)
[2023-03-22 05:49] LABS: CALCIUM 8.8 MG/DL (8.5-10.1)
[2023-03-22 05:50] LABS: TOTAL PROTEIN 4.9 GM/DL (6.4-8.2)
[2023-03-22 05:52] LABS: BILIRUBIN,TOTAL 0.2 MG/DL (0.1-1.0)
[2023-03-22 05:53] LABS: PHOSPHORUS 4.2 MG/DL (2.3-4.7)
[2023-03-22 05:54] LABS: CREATININE SERUM 0.94 MG/DL (0.60-1.30)
[2023-03-22 05:56] LABS: MAGNESIUM 2.2 MG/DL (1.6-2.4)
[2023-03-22] MEDS: KCL 20 MEQ TAB (K-DUR) PO SCH (06:16)
[2023-03-22] MEDS: MAGNESIUM 1 GM/100 ML IVPB 100 ML IV SCH (06:16)
[2023-03-22] MEDS: POTASSIUM CL 10MEQ/50ML IVPB 50 ML IV SCH (06:16)
[2023-03-22] MEDS: RT-LEVALBUTEROL (XOPENEX) 1.25 MG/3 ML NEB NON-FORMULARY INH SCH ×2 (07:19→13:42)
[2023-03-22] MEDS: UMECLIDINIUM BROMIDE (INCRUSE ELLIPTA) 7'S IH SCH (07:26)
[2023-03-22 07:54] VITALS: BP 112/70
[2023-03-22] MEDS: AUGMENTIN 875 MG TAB (AMOXICILLIN/CLAVULANATE) PO SCH (08:54)
[2023-03-22] MEDS: meTOprolol TARTRATE 50 MG (LOPRESSOR) TAB PO SCH (08:55)
[2023-03-22] MEDS: DOCUSATE SODIUM 100 MG (COLACE) CAP PO SCH (08:55)
[2023-03-22] MEDS: SENNOSIDES 8.6 MG (SENOKOT) TAB PO SCH (08:55)
[2023-03-22] MEDS: NICOTINE 7 MG (NICODERM) PATCH TD SCH (08:56)
[2023-03-22] MEDS: FOLIC ACID 1 MG TAB PO SCH (08:56)
[2023-03-22] MEDS: PATCH REMOVAL TP SCH (08:56)
[2023-03-22] MEDS ORDERED: AMOX1TAB12 PO (10:26)
[2023-03-22] MEDS ORDERED: PRED10TA22 PO (10:26)
--- NOTE | 2023-03-22 10:33 | D/C HH Face to Face Order ---
D/C Face to Face Orders Instructions for Patient Via [facility], Patient Instructions/FollowUp: Please continue to take your medications as written. Please follow up with your primary care doctor to follow up this hospital stay. Physician to follow Patient: Dr Garnett Discharge Diet for Home: No Restrictions Patient Data-Allergies,Ht & Wt Patient Allergies: Coded Allergies: fentanyl (Verified Allergy, Intermediate, 09/03/22) hallucinations codeine (Verified Allergy, Unknown, ITCH/HIVES, 09/03/22) Home Health Need/Face to Face Date of Face to Face: March 22, 2023 Clinical Findings: Generalized weakness and fatigue, Shortness of breath I have seen Pt hdxv-it-rpjq: Yes Discharged To: Home Diagnosis/Conditions: COPD, Lung Cancer Patient is Homebound due to: Shortness of breath/distress Homebound Status Due to the above stated illness, injury or surgical procedure (medical condition or diagnosis) and associated clinical findings, the patient is homebound because of his/her inability to leave home except with aid of a supportive device and/or person AND leaving the home requires a considerable and taxing effort or is medically contraindicated. Pt req the following assistanc: Aid of another person Home Health Nursing Orders Home Health Services Order: Nursing Services, Physical Therapy-Evaluate & Treat Home Health Infusion Therapy Line Start Date: Mar 17, 2023 Therapy Orders Therapy Orders: Physical Therapy, PT to assess for OT Therapy Specific Orders: Eval assistive deivces, Teach enviro modifications/safety, Gait training, Increase strength/endurance Certify Stmt I certify that this patient is under my care and that I, a nurse practitioner or a physician; a itinerant teacher assistant working with me, had a face to face encounter that - meets the physician face to face encounter requirements with this patient as dated. RONEN PÉREZ MD March 22, 2023 10:33
--- NOTE | 2023-03-22 11:21 | Physical Therapy Daily Note ---
PT Daily Note-Current Subjective Patient states she hopes to go home today. Agrees to PT. Pain Section J - Health Conditions 1. Rarely or not at all 2. Occasionally 3. Frequently 4. Almost constantly 8. Unable to answer Pain Effect on Sleep: 1 Pain Interference with Therapy: 1 Pain Interference w/Day-to-Day: 1 Mental Status Patient Orientation: Normal For Age Attachments: Oxygen Transfers SCALE: Activities may be completed with or without assistive devices. 5-Suqgizrqxb-nfekjlm completes the activity by him/herself with no assistance from a helper. 5-Set-up or Clean-up Assistance-helper sets up or cleans up; patient completes activity. [place] assists only prior to or following the activity. 4-Supervision or Touching Assistance-helper provides verbal cues and/or touching/steadying and/or contact guard assistance as patient completes activity. Assistance may be provided throughout the activity or intermittently. 3-Partial/Moderate Assistance-helper does LESS THAN HALF the effort. [place] lifts, holds or supports trunk or limbs, but provides less than half the effort. 2-Substantial/Maximal Assistance-helper does MORE THAN HALF the effort. [place] lifts or holds trunk or limbs and provides more than half the effort. 8-Lrixwlbml-dbjsop does ALL the effort. Patient does none of the effort to complete the activity. Or, the assistance of 2 or more helpers is required for the patient to complete the activity. If activity was not attempted, code reason: 7-Patient Refused. 9-Not Applicable-not attempted and the patient did not perform the activity before the current illness, exacerbation or injury. 10-Not Attempted due to Environmental Limitations-(lack of equipment, weather restraints, etc.). 88-Not Attempted due to Medical Conditions or Safety Concerns. Sit to Lying (QC): 6 Lying to Sitting/Side of Bed(Q: 6 Sit to Stand (QC): 6 Gait Training Distance: 500' Walk 10 feet (QC): 5 Walk 50 ft with 2 Turns(QC): 5 Walk 150 ft (QC): 5 Gait Assistive Device: FWW safe and functional with no deviation Assessment Patient's SAO2 decreased to 85% on 6L with activity with quick recovery. Patient remains in bed with needs met. PT Longterm Goals Longterm Goals PT Longterm Goals Time Frame: March 31, 2023 Roll Left & Right (QC): 6 Sit to Lying (QC): 6 Lying-Sitting on Side/Bed(QC): 6 Sit to Stand (QC): 6 Chair/Ihd-ne-Yroji Xfer(QC): 6 Toilet Transfer (QC): 6 Walk 10 feet (QC): 4 PT Plan Treatment/Plan Treatment Plan: Continue Plan of Care Treatment Plan: Bed Mobility, Education, Functional Activity Andra, Functional Strength, Gait, Safety, Therapeutic Exercise, Transfers Treatment Duration: March 31, 2023 Frequency: 6 times per week Estimated Hrs Per Day: .25 hour per day Patient and/or Family Agrees t: Yes Time Time In: 1000 Time Out: 1013 DATE: March 22, 2023 Total Billed Treatment Time: 13 Total Billed Treatment 1 visit FA 13 min ELISSA VALLE PT March 22, 2023 11:21
[2023-03-22 11:29] VITALS: BP 116/69
--- NOTE | 2023-03-22 11:37 | Discharge Summary ---
Diagnosis/Chief Complaint Date of Admission Mar 17, 2023 at 21:15 Date of Discharge Discharge Date: March 22, 2023 Admission Diagnosis Acute on chronic respiratory failure with hypoxia Primary Care Oscar Garnett MD Discharge Diagnosis (1) Acute on chronic respiratory failure with hypoxia Status: Acute (2) COPD (chronic obstructive pulmonary disease) Status: Acute (3) UTI (urinary tract infection) Status: Acute (4) Lung cancer Status: Acute (5) Pain of metastatic malignancy Status: Chronic Discharge Summary Discharge Physical Exam Allergies: Coded Allergies: fentanyl (Verified Allergy, Intermediate, 09/03/22) hallucinations codeine (Verified Allergy, Unknown, ITCH/HIVES, 09/03/22) Vitals & I&Os Vital Signs Date Time Temp Pulse Resp B/P (MAP) Pulse Ox O2 Delivery O2 Flow Rate FiO2 03/22/23 13:46 88 High Flow N/C 4.00 03/22/23 11:29 36.4 83 18 116/69 (85) 03/19/23 12:56 35 General Appearance: No Apparent Distress, Chronically ill, Cachetic Respiratory: Lungs Clear, Other (on 4lpm) Cardiovascular: Regular Rate, Rhythm, No Murmur Gastrointestinal: Normal Bowel Sounds, Soft Neurologic/Psychiatric: Alert, Oriented x3 Hospital Course Patient was admitted to the hospital secondary to sepsis due to urinary tract infection along with acute on chronic respiratory failure present on admission. She had a CT of her chest that was done to rule out PE which did show atelectasis versus pneumonia. She was treated with broad-spectrum antibiotics given her structural lung disease though did not have much of a cough. She did require Vapotherm shortly early in admission but was weaned down to high flow nasal cannula. She was treated with steroids due to her COPD and high oxygen requirement Urine cultures grew a pansensitive E. coli. She was de-escalated from vancomycin and Zosyn to Augmentin upon discharge. She was back down to her baseline oxygen requirement of 4 L as well. She has planned imaging with Dr. Begum to assess response to treatment for her lung cancer next week. I did up date Dr. Begum of this admission. After her discharge last time [facility] had been recommended but she was unable to establish with them and is still interested. Palliative care assisted with placing that referral again. I did speak with her primary care physician Dr. Garnett regarding all of this and he will follow her as an outpatient. Home health was reordered as well. Labs (last 24 hrs) Laboratory Tests 03/22/23 05:22: White Blood Count 8.4, Red Blood Count 3.36L, Hemoglobin 9.5L, Hematocrit 31L, Mean Corpuscular Volume 91, Mean Corpuscular Hemoglobin 28, Mean Corpuscular Hemoglobin Concent 31L, Red Cell Distribution Width 15.3H, Platelet Count 173, Mean Platelet Volume 8.7L, Immature Granulocyte % (Auto) 8, Neutrophils (%) (Auto) 69, Lymphocytes (%) (Auto) 14, Monocytes (%) (Auto) 8, Eosinophils (%) (Auto) 0, Basophils (%) (Auto) 0, Neutrophils # (Auto) 5.8, Lymphocytes # (Auto) 1.2, Monocytes # (Auto) 0.7, Eosinophils # (Auto) 0.0, Basophils # (Auto) 0.0, Immature Granulocyte # (Auto) 0.7H, Sodium Level 136, Potassium Level 4.4, Chloride Level 103, Carbon Dioxide Level 23, Anion Gap 10, Blood Urea Nitrogen 21H, Creatinine 0.94, Estimat Glomerular Filtration Rate 65, BUN/Creatinine Ratio 22, Glucose Level 99, Calcium Level 8.8, Corrected Calcium 9.6, Phosphorus Level 4.2, Magnesium Level 2.2, Total Bilirubin 0.2, Aspartate Amino Transf (AST/SGOT) 16, Alanine Aminotransferase (ALT/SGPT) 13, Alkaline Phosphatase 66, Total Protein 4.9L, Albumin 3.0L Microbiology 03/17/23 MRSA Screen - Final, Complete No growth 03/17/23 Urine Culture - Final, Complete Escherichia coli Patient resulted labs reviewed. Pending Labs Imaging: Reviewed Imaging Report Discussion & Recommendations Discharge Planning: >30 minutes discharge planning Discharge Home Medications: Active Scripts Active Prednisone 10 Mg Tab.ds.pk 10 Mg PO DAILY Take 6 tabs(60mg)daily,decrease by 1 tab(10MG)daily. Amox Tr-K Clv 875-125 mg Tab (Amoxicillin/Potassium Clav) 875 Mg-125 Mg Tablet 875 Mg PO BID WITH MEALS Reported Alprazolam 0.5 Mg Tablet 0.5 Mg PO TID PRN Ventolin Hfa (Albuterol Sulfate) 1 Puff Puff 2 Puff INH Q4H PRN Multivitamin Gummies (Multivit-Minerals/Folic Acid) 200 Mcg Tab.chew 1 Ea PO DAILY Vitamin B-12 (Cyanocobalamin (Vitamin B-12)) 500 Mcg Tablet 500 Mcg PO DAILY Amlodipine Besylate 5 Mg Tablet 5 Mg PO DAILY Morphine Sulfate ER (Morphine Sulfate) 15 Mg Tablet.er 15 Mg PO Q8H Promethazine Tablet (Promethazine HCl) 25 Mg Tablet 25 Mg PO Q6H PRN Docusate Sodium 100 Mg Capsule 100 Mg PO BID PRN Iprat-Albut 0.5-3(2.5) mg/3 ml (Ipratropium/Albuterol Sulfate) 0.5 Mg-3 Mg (2.5 Mg Base)/3 Ml Ampul.neb 3 Ml NEB Q4H PRN Pantoprazole Sodium 40 Mg Tablet.dr 40 Mg PO 1200 Lisinopril 40 Mg Tablet 20 Mg PO DAILY TAKES OF A 40MG TAB Folic Acid 1 Mg Tablet 1 Mg PO DAILY Oxycodone HCl 5 Mg Tablet 5 Mg PO Q4H PRN Metoprolol Tartrate 100 Mg Tablet 100 Mg PO BID Trelegy Ellipta 100-62.5-25 (Fluticasone/Umeclidin/Vilanter) 100-62.5 Blst.w.dev 1 Each IH 1200 Rosuvastatin Calcium 20 Mg Tablet 20 Mg PO HS Instructions to patient/family Please see electronic discharge instructions given to patient. Problem Qualifiers (1) UTI (urinary tract infection): Urinary tract infection type: site unspecified (2) Lung cancer: Laterality: unspecified laterality Lung location: unspecified part of lung Qualified Codes: C34.90 - Malignant neoplasm of unspecified part of unspecified bronchus or lung RONEN PÉREZ MD March 22, 2023 11:37
[2023-03-22] MEDS: PANTOPRAZOLE 40 MG (PROTONIX) TAB PO SCH (12:58)
[2023-03-22] MEDS: RT--FLUTICASONE/SALMETEROL 232-14 (AIRDUO RespiCLICK) IH SCH (14:25)
== END 2023-03-22 14:50 | disposition home health service (06) | DRG 871 ==
LOC: EDUNIT# 17:42 → ER 17:45 → ICU 21:15 → 4TH 03-20 15:00
PROVIDERS: ADMIT Internal Medicine; ATTEND Internal Medicine
PROC: 5A0945A Assistance with Respiratory Ventilation, 24-96 Consecutive Hours, High Flow/Velocity Cannula (ICD-10-PCS; principal; 2023-03-19)
DX: A41.9 Sepsis, unspecified organism (principal); J18.9 Pneumonia, unspecified organism; J96.21 Acute and chronic respiratory failure with hypoxia; C34.90 Malignant neoplasm of unspecified part of unspecified bronchus or lung; N39.0 Urinary tract infection, site not specified; R64 Cachexia; Z68.1 Body mass index [BMI] 19.9 or less, adult; Z99.81 Dependence on supplemental oxygen; Z87.891 Personal history of nicotine dependence; E78.00 Pure hypercholesterolemia, unspecified; I10 Essential (primary) hypertension; Z92.21 Personal history of antineoplastic chemotherapy; J43.9 Emphysema, unspecified; F41.9 Anxiety disorder, unspecified; G89.4 Chronic pain syndrome; Z66 Do not resuscitate; E88.09 Other disorders of plasma-protein metabolism, not elsewhere classified; K21.9 Gastro-esophageal reflux disease without esophagitis; R53.81 Other malaise
CPT/HCPCS: 36415; 71045; 71275; 80053; 81000; 82805; 83735; 84100; 85025; 85379; 85610; 85730; 87077; 87081; 87088; 87186; 94640; 94760; 96365; 96375

== ENCOUNTER 2023-03-31 22:04 | Inpatient (IN) | payer MEDICARE, MEDICAID ==
[~2023-03-31] VITALS: Ht 147.3 cm; Wt 38.7 kg
[~2023-03-31 22:04] MED LIST changes: +ALB0.5V INH; +ALPR0.5T7 PO; +AMOX1TAB12 PO; +VITA1TAB17 PO
[2023-03-31] MEDS ORDERED: LACTATED RINGERS 1,000 ML IV ONE ×2 (22:15→22:30)
[2023-03-31] MEDS ORDERED: ACETAMINOPHEN 500 MG TAB (TYLENOL) PO PRN (22:30)
[2023-03-31] MEDS ORDERED: CEFEPIME INJECTION 1,000 MG in NS (IVPB) 50 ML IV ONE (22:30)
[2023-03-31 22:34] LABS: BASOPHILS % (AUTO) 0 % (0-10); EOSINOPHILS # (AUTO) 0.1 10^3/uL (0.0-0.3); EOSINOPHILS % (AUTO) 1 % (0-10); HEMOGLOBIN 8.4 g/dL (11.5-16.0); MONOCYTES # (AUTO) 0.8 10^3/uL (0.0-1.0)
[2023-03-31 22:36] LABS: HEMATOCRIT 26 % (35-52); LYMPHOCYTES # (AUTO) 1.5 10^3/uL (1.0-4.0); LYMPHOCYTES % (AUTO) 14 % (12-44); MEAN CORPUSCULAR HEMOGLOBIN 29 pg (25-34); MEAN CORPUSCULAR HGB CONC 32 g/dL (32-36); MEAN CORPUSCULAR VOLUME 90 fL (80-99); MEAN PLATELET VOLUME 8.8 fL (9.0-12.2); MONOCYTES % (AUTO) 7 % (0-12); NEUTROPHILS % (AUTO) 75 % (42-75); PLATELET COUNT 108 10^3/uL (130-400); WHITE BLOOD COUNT 10.7 10^3/uL (4.3-11.0)
[2023-03-31 22:45] LABS: INR 1.1 (0.8-1.4); PROTHROMBIN TIME PATIENT 14.1 SEC (12.2-14.7)
[2023-03-31 22:46] LABS: CHLORIDE 100 MMOL/L (98-107); POTASSIUM 4.3 MMOL/L (3.6-5.0); SODIUM 134 MMOL/L (135-145)
[2023-03-31 22:47] LABS: ALBUMIN 3.2 GM/DL (3.2-4.5)
[2023-03-31 22:48] LABS: CALCIUM 8.3 MG/DL (8.5-10.1)
[2023-03-31 22:49] LABS: GLUCOSE 99 MG/DL (70-105)
[2023-03-31 22:50] LABS: CARBON DIOXIDE 23 MMOL/L (21-32)
[2023-03-31 22:51] LABS: BILIRUBIN,TOTAL 0.4 MG/DL (0.1-1.0)
[2023-03-31 22:53] LABS: ALKALINE PHOSPHATASE 72 U/L (40-136); CREATININE SERUM 1.31 MG/DL (0.60-1.30); GFR ESTIMATED 44
--- NOTE | 2023-03-31 22:53 | ED Fall/Injury ---
General Chief Complaint: Trauma-Non Activation Stated Complaint: FALL Nursing Triage Note: PT TO [facility]IA [facility] FROM HOME W REPORTS OF 2 FALLS TODAY, MOST RECENT FALL FROM STANDING D/T LOSS OF BALANCE, PT REPORTS HITTING HEAD BOTH TIMES. ABRASION NOTED TO PT NOSE/FACE, PT REPORTS RIGHT ARM NUMBNESS SX FALL. PT DENIES ACUTE PAIN, A&OX4. C-COLLAR IN PLACE UPON ARRIVAL TO ED. Source: patient History of Present Illness Date Seen by Provider: March 31, 2023 Time Seen by Provider: 22:07 Initial Comments PT ARRIVES VIA POV FROM HOME AT [facility], WITH CERVICAL COLLAR IN PLACE. PT LIVES ALONE. STATES SHE HAS HOME HEALTH TWICE A WEEK AND THEY WERE THERE TODAY. PT STATES SHE WAS GETTING UP TO GO TO THE BATHROOM AND LOST HER BALANCE AND FELL, HITTING HER FACE ON THE COUCH AND THEN THE FLOOR. SHE GOT UP AND LOST HER BALANCE AGAIN AND FELL AGAIN IN THE BATHROOM--STATES SHE HIT THE FRONT OF HER HEAD AND ALSO THE BACK OF HER HEAD ON THE FLOOR SHE DENIES LOSS OF CONSCIOUSNESS--PT HAS FULL RECOLLECTION OF EVENTS. NO VISION CHANGES NO SIGNIFICANT PAIN TO HER HEAD OR FACE. SHE DOES STATE THAT PRIOR TO ARRIVAL, HER RIGHT ARM AND HAND WERE NUMB AND SHE COULD NOT USE HER RIGHT HAND OR MOVE HER RIGHT ARM. THIS IS NOW RESOLVED. NO PAIN TO RIGHT ARM OR HAND DENIES ANY NECK OR BACK PAIN DENIES HEADACHE DENIES DIZZINESS BLOOD GLUCOSE 105 FOR EMS. EMS GOT TEMP OF 102.2, TACHYCARDIA IN 110'S-120'S, NORMAL BP. PT IS UNAWARE OF FEVER. PT HAS STAGE 4 LUNG CANCER, AND HAS BEEN ON CHEMO--LAST TREATMENT 2-3 MONTHS AGO, PER PT. SHE WAS DIAGNOSED 07/2022. SHE ALSO HAS COPD AND IS O2 DEPENDENT AT 4L/NC . SHE STATES SHE WAS WEARING OXYGEN AT THE TIME OF THE FALLS--O2 CONCENTRATOR WITH 35 FOOT OXYGEN TUBING. ON ARRIVAL, PT HAS BEEN PLACED IN 15L/NRB BY EMS. SHE DOES HAVE CHRONIC GENERALIZED PAIN SHE STATES SHE DOES NOT REMEMBER IF SHE TOOK HER MORPHINE TONIGHT OR NOT. SHE STATES SHE IS NOT HURTING ANYWHERE RIGHT NOW SHE IS NOT ON ASPIRIN OR BLOOD THINNERS PT WAS HOSPITALIZED 01/17-02/12/23 FOR PNEUMONIA, THEN WENT TO SWING BED UNTIL 02/19/23, AND DISMISSED TO HOME WITH HOME HEALTH SHE WAS ADMITTED AGAIN 03/17-03/22/23 FOR UTI. PT STATES SHE STILL HAS A PRODUCTIVE COUGH, BUT IS NOT ANY WORSE TONIGHT SHE DENIES ANY URINARY SYMPTOMS OTHER THAN FREQUENCY. SHE STATES SHE FINISHED HER ORAL ANTIBIOTICS FOR UTI 2-3 DAYS AGO. Location Injury Occurred: PT HOME PCP: DR. HARRIS IN [place] ONCOLOGIST: DR. MONTANO Allergies and Home Medications Allergies Coded Allergies: fentanyl (Verified Allergy, Intermediate, 09/03/22) hallucinations codeine (Verified Allergy, Unknown, ITCH/HIVES, 09/03/22) Patient Home Medication List Home Medication List Reviewed: Yes Albuterol Sulfate (Ventolin Hfa) 1 Puff Puff, 2 PUFF INH Q4H PRN for SHORTNESS OF BREATH, (Reported) Entered as Reported by: KALPESH REYES on 01/18/23 1021 Alprazolam (Alprazolam) 0.5 Mg Tablet, 0.5 MG PO TID PRN for ANXIETY, (Reported) Entered as Reported by: KALPESH REYES on 03/19/23 1029 Amlodipine Besylate (Amlodipine Besylate) 5 Mg Tablet, 5 MG PO DAILY, (Reported) Entered as Reported by: KALPESH REYES on 01/18/23 1017 Amoxicillin/Potassium Clav (Amox Tr-K Clv 875-125 mg Tab) 875 Mg-125 Mg Tablet, 875 MG PO BID WITH MEALS Prescribed by: RONEN PÉREZ on 03/22/23 1026 Cyanocobalamin (Vitamin B-12) (Vitamin B-12) 500 Mcg Tablet, 500 MCG PO DAILY, (Reported) Entered as Reported by: KALPESH REYES on 01/18/23 1017 Docusate Sodium (Docusate Sodium) 100 Mg Capsule, 100 MG PO BID PRN for CONSTIPATION-1ST LINE, (Reported) Entered as Reported by: KALPESH REYES on 09/12/22 1125 Fluticasone/Umeclidin/Vilanter (Trelegy Ellipta 100-62.5-25) 100-62.5 Blst.w.dev, 1 EACH IH 1200, (Reported) Entered as Reported by: BON KNOWLES on 08/23/22 1526 Folic Acid (Folic Acid) 1 Mg Tablet, 1 MG PO DAILY, (Reported) Entered as Reported by: CHRISTIAN MUSE on 09/04/22 1331 Ipratropium/Albuterol Sulfate (Iprat-Albut 0.5-3(2.5) mg/3 ml) 0.5 Mg-3 Mg (2.5 Mg Base)/3 Ml Ampul.neb, 3 ML NEB Q4H PRN for SHORTNESS OF BREATH, (Reported) Entered as Reported by: KALPESH REYES on 09/12/22 1125 Lisinopril (Lisinopril) 40 Mg Tablet, 20 MG PO DAILY, (Reported) Entered as Reported by: CHRISTIAN MUSE on 09/04/22 1331 Metoprolol Tartrate (Metoprolol Tartrate) 100 Mg Tablet, 100 MG PO BID, (Reported) Entered as Reported by: BON KNOWLES on 08/23/22 1526 Morphine Sulfate (Morphine Sulfate ER) 15 Mg Tablet.er, 15 MG PO Q8H, (Reported) Entered as Reported by: KALPESH REYES on 01/18/23 1017 Multivit-Minerals/Folic Acid (Multivitamin Gummies) 200 Mcg Tab.chew, 1 EA PO DAILY, (Reported) Entered as Reported by: KALPESH REYES on 01/18/23 1017 Oxycodone HCl (Oxycodone HCl) 5 Mg Tablet, 5 MG PO Q4H PRN for PAIN-SEVERE (8- 10), (Reported) Entered as Reported by: CHRISTIAN MUSE on 09/04/22 1329 Pantoprazole Sodium (Pantoprazole Sodium) 40 Mg Tablet.dr, 40 MG PO 1200, (Reported) Entered as Reported by: KALPESH REYES on 09/12/22 1125 Prednisone (Prednisone) 10 Mg Tab.ds.pk, 10 MG PO DAILY Prescribed by: RONEN PÉREZ on 03/22/23 1026 Promethazine HCl (Promethazine Tablet) 25 Mg Tablet, 25 MG PO Q6H PRN for NAUSEA/VOMITING-2ND LINE, (Reported) Entered as Reported by: KALPESH REYES on 01/18/23 1017 Rosuvastatin Calcium (Rosuvastatin Calcium) 20 Mg Tablet, 20 MG PO HS, (Reported) Entered as Reported by: KALPESH REYES on 08/03/22 1603 Review of Systems Review of Systems Constitutional: see HPI, malaise, weakness Eyes: No Symptoms Reported Ears, Nose, Mouth, Throat: see HPI, epistaxis Respiratory: see HPI, cough; No short of breath Cardiovascular: no symptoms reported; No chest pain Gastrointestinal: no symptoms reported (HAS BEEN INCONTINENT OF STOOL BECAUSE SHE FELL BEFORE SHE COULD GET TO THE TOILET. THERE IS DRIED STOOL CAKED ON HER PERIRECTAL AREA, AND DOWN HER LEGS AND ON HER FEET AND TOES. ); No abdominal pain, No diarrhea, No nausea, No vomiting Genitourinary: see HPI (SHE HAS BEEN INCONTINENT OF URINE BECAUSE SHE FELL BEFORE SHE COULD GET TO THE TOILET) Musculoskeletal: no symptoms reported (DENIES ANY PAIN TO ARMS OR LEGS OR NECK OR BACK) Skin: other (ABRASION TO NOSE) Psychiatric/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: See HPI; Denies Headache; Numbness, Paresthesia, Weakness Past Evesdwv-Ccbpff-Ztxdzh Hx Patient Social History Tobacco Use?: Yes Tobacco type used: Cigarettes Smoking Status: Former Smoker Use of E-Cig and/or Vaping dev: No Substance use?: No Alcohol Use?: No Immunizations Up To Date Tetanus Booster (TDap): Unknown First/Initial COVID19 Vaccinat: 12/12/2020 [employer] Second COVID19 Vaccination Noe: 01/07/2021 [employer] Third COVID19 Vaccination Date: 12/01/21 [employer] COVID19 Vaccine 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 Seasonal Allergies Seasonal Allergies: No Past Medical History Surgery/Hospitalization HX: COPD, CA LUNG W METS Surgeries: Yes (port, skin cancer resection) Abdominal, Hysterectomy Respiratory: Yes (Lung cancer) COPD Currently Using CPAP: No Currently Using BIPAP: No Cardiac: Yes 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, 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: No 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 oz. kg; 19.00 BMI Method: General Appearance: cachetic, other (CHRONICIALLY ILL APPEARING. SHE IS COVERED IN DRIED FECES AND URINE. VERY TALKATIVE, PLEASANT, TALKS AT GREAT LENGTH, ) HEENT: PERRL/EOMI, other (ABRASION TO BRIDGE OF NOSE, WITH DRIED BLOOD IN BOTH NARES, AND SOME BRUISING TO NOSE. THERE IS EARLY HEMATOMA TO RIGHT FOREHEAD. NO ORAL INJURY. NO MANDIBULAR TENDERESS OR MAL-OCCLUSION OR INTRA-ORAL INJURY. 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 intern II-XII nml as tested, no motor/sensory deficits, alert, normal mood/affect, oriented x 3; No abnormal cerebellar tests Skin: normal color, warm/dry [place] Coma Score Best Eye Response: (4) Open Spontaneously Best Verbal Response: (5) Oriented Best Motor Response: (6) Obeys Commands Gerald Total: 15 Progress/Results/Core Measures Results/Orders Lab Results Laboratory Tests Test 03/31/23 22:24 03/31/23 23:54 Range/Units White Blood Count 10.7 4.3-11.0 10^3/uL Red Blood Count 2.92 L 3.80-5.11 10^6/uL Hemoglobin 8.4 L 11.5-16.0 g/dL Hematocrit 26 L 35-52 % Mean Corpuscular Volume 90 80-99 fL Mean Corpuscular Hemoglobin 29 25-34 pg Mean Corpuscular Hemoglobin Concent 32 32-36 g/dL Red Cell Distribution Width 15.6 H 10.0-14.5 % Platelet Count 108 L 130-400 10^3/uL Mean Platelet Volume 8.8 L 9.0-12.2 fL Immature Granulocyte % (Auto) 3 % Neutrophils (%) (Auto) 75 42-75 % Lymphocytes (%) (Auto) 14 12-44 % Monocytes (%) (Auto) 7 0-12 % Eosinophils (%) (Auto) 1 0-10 % Basophils (%) (Auto) 0 0-10 % Neutrophils # (Auto) 8.0 H 1.8-7.8 10^3/uL Lymphocytes # (Auto) 1.5 1.0-4.0 10^3/uL Monocytes # (Auto) 0.8 0.0-1.0 10^3/uL Eosinophils # (Auto) 0.1 0.0-0.3 10^3/uL Basophils # (Auto) 0.0 0.0-0.1 10^3/uL Immature Granulocyte # (Auto) 0.3 H 0.0-0.1 10^3/uL Percent Immature Platelet Fraction 1.2 0.0-7.6 % Prothrombin Time 14.1 12.2-14.7 SEC INR Comment 1.1 0.8-1.4 Activated Partial Thromboplast Time 28 24-35 SEC Sodium Level 134 L 135-145 MMOL/L Potassium Level 4.3 3.6-5.0 MMOL/L Chloride Level 100 98-107 MMOL/L Carbon Dioxide Level 23 21-32 MMOL/L Anion Gap 11 5-14 MMOL/L Blood Urea Nitrogen 18 7-18 MG/DL Creatinine 1.31 H 0.60-1.30 MG/DL Estimat Glomerular Filtration Rate 44 BUN/Creatinine Ratio 14 Glucose Level 99 70-105 MG/DL Lactic Acid Level 1.07 0.50-2.00 MMOL/L Calcium Level 8.3 L 8.5-10.1 MG/DL Corrected Calcium 8.9 8.5-10.1 MG/DL Magnesium Level 1.6 1.6-2.4 MG/DL Total Bilirubin 0.4 0.1-1.0 MG/DL Aspartate Amino Transf (AST/SGOT) 19 5-34 U/L Alanine Aminotransferase (ALT/SGPT) 22 0-55 U/L Alkaline Phosphatase 72 40-136 U/L Total Creatine Kinase 24 L 29-168 U/L Creatine Kinase MB 1.6 <6.6 NG/ML Myoglobin 36.2 10.0-92.0 NG/ML Total Protein 5.0 L 6.4-8.2 GM/DL Albumin 3.2 3.2-4.5 GM/DL Acetaminophen Level < 10 L 10-30 UG/ML Serum Alcohol < 10 <10 MG/DL Urine Color YELLOW Urine Clarity CLEAR Urine pH 7.5 5-9 Urine Specific Cameron <=1.005 1.016-1.022 Urine Protein NEGATIVE NEGATIVE Urine Glucose (UA) NEGATIVE NEGATIVE Urine Ketones NEGATIVE NEGATIVE Urine Nitrite NEGATIVE NEGATIVE Urine Bilirubin NEGATIVE NEGATIVE Urine Urobilinogen 0.2 < = 1.0 MG/DL Urine Leukocyte Esterase 3+ H NEGATIVE Urine RBC (Auto) NEGATIVE NEGATIVE Urine RBC NONE /HPF Urine WBC 5-10 H /HPF Urine Squamous Epithelial Cells 0-2 /HPF Urine Renal Epithelial Cells 0-2 /HPF Urine Crystals NONE /LPF Urine Bacteria NEGATIVE /HPF Urine Casts NONE /LPF Urine Mucus NEGATIVE /LPF Urine Culture Indicated CULTURE PENDING Urine Opiates Screen POSITIVE H NEGATIVE Urine Oxycodone Screen POSITIVE H NEGATIVE Urine Methadone Screen NEGATIVE NEGATIVE Urine Propoxyphene Screen NEGATIVE NEGATIVE Urine Barbiturates Screen NEGATIVE NEGATIVE Ur Tricyclic Antidepressants Screen NEGATIVE NEGATIVE Urine Phencyclidine Screen NEGATIVE NEGATIVE Urine Amphetamines Screen NEGATIVE NEGATIVE Urine Methamphetamines Screen NEGATIVE NEGATIVE Urine Benzodiazepines Screen NEGATIVE NEGATIVE Urine Cocaine Screen NEGATIVE NEGATIVE Urine Cannabinoids Screen NEGATIVE NEGATIVE My Orders Orders - NICOLE CARNEY DO Ed Iv/Invasive Line Start (03/31/23 22:14) O2 (03/31/23 22:14) Monitor-Rhythm Ecg Trace Only (03/31/23 22:14) Straight Cath For Spec.-Adult (03/31/23 22:14) Alcohol (03/31/23 22:14) Cbc With Automated Diff (03/31/23 22:14) Comprehensive Metabolic Panel (03/31/23 22:14) Creatine Kinase (03/31/23 22:14) Creatine Kinase Mb (03/31/23 22:14) Drug Screen Stat (Urine) (03/31/23 22:14) Lactic Acid Analyzer (03/31/23 22:14) Magnesium (03/31/23 22:14) Protime With Inr (03/31/23 22:14) Partial Thromboplastin Time (03/31/23 22:14) Ua Culture If Indicated (03/31/23 22:14) Blood Culture (03/31/23 22:14) Myoglobin Serum (03/31/23 22:14) Chest 1 View, Ap/Pa Only (03/31/23 22:14) Pelvis 1 To 2 Views (03/31/23 22:14) Ct Head/Face/Cervical Wo (03/31/23 22:14) Ed Iv/Invasive Line Start (03/31/23 22:14) Lactated Ringers (Lr 1000 Ml Iv Solution (03/31/23 22:15) Sputum Culture (03/31/23 22:23) Urine Culture (03/31/23 22:23) Acetaminophen Tablet (Tylenol Tablet) (03/31/23 22:30) Ed Iv/Invasive Line Start (03/31/23 22:23) Vital Signs Adult Sepsis Patie Q15M (03/31/23 22:23) Remove Rings In Anticipation O (03/31/23 22:23) Lactated Ringers (Lr 1000 Ml Iv Solution (03/31/23 22:30) Cefepime Injection (Maxipime Injection) (03/31/23 22:30) Acetaminophen (03/31/23 22:24) Morphine Injection (Morphine Injection (04/01/23 00:08) Medications Given in ED Current Medications Medications Dose Ordered Sig/Ade Route Start Time Stop Time Status Last Admin Dose Admin Acetaminophen 1,000 mg ONCE PRN PO 03/31/23 22:30 03/31/23 22:35 DC 03/31/23 22:35 1,000 MG Cefepime HCl 1000 mg/Sodium Chloride 50 ml @ 100 mls/hr ONCE ONCE IV 03/31/23 22:30 03/31/23 22:59 DC 03/31/23 22:47 100 MLS/HR Lactated Ringer's 1,000 ml @ 0 mls/hr Q0M ONCE IV 03/31/23 22:15 03/31/23 22:17 DC 03/31/23 22:35 0 MLS/HR Lactated Ringer's 1,000 ml @ 0 mls/hr Q0M ONCE IV 03/31/23 22:30 03/31/23 22:31 DC 03/31/23 23:57 1,000 MLS/HR Vital Signs/I&O 03/31/23 03/31/23 03/31/23 22:04 22:04 22:35 Temp 37.8 37.8 Pulse 114 Resp 24 B/P (MAP) 119/78 (92) Pulse Ox 90 92 O2 Delivery OxyMask OxyMask O2 Flow Rate 4.00 5.00 04/01/23 00:00 Intake Total 1050 ml Balance 1050 ml Blood Pressure Mean: 92 Progress Progress Note : Progress Note PT NOTED TO HAVE FEVER OF 100 DEGREES ON ARRIVAL SEPSIS PROTOCOL INITIATED GIVEN: -IV FLUIDS -TYLENOL FOR FEVER -CEFEPIME -MORPHINE FOR HER CHRONIC GENERALIZED PAIN -DECADRON FOR CEREBRAL EDEMA -KEPPRA FOR SEIZURE PREVENTION HR 110-120 ON ARRIVAL. BP IS NORMAL 119/78. O2 SATS 90% ON OXIMASK AT 4L--UP TO 96% ON 5L--PT DOES NOT COMPLAIN OF DIFFICULTY BREATHING. DUE TO NASAL FRACTURE AND LARGE AMOUNT OF DRIED BLOOD IN NARES, NASAL CANNULA IS NOT AN OPTION AT THIS TIME. HEART RATE DOWN TO <100, BP REMAINED STABLE WITH SYSTOLIC BP > 100. TEMP DOWN TO 36.3=97.4 NO DETERIORATION IN PT'S CONDITION DURING ER STAY PT ASSISTED TO BEDSIDE COMMODE A FEW TIMES DURING ER STAY, AND REQUIRES ASSISTANCE. PT IS MODERATELY UNSTEADY WITH STANDING AND TRANSFERRING. SHE IS ABLE TO BEAR WEIGHT ON BOTH LEGS. DISCUSSED TEST RESULTS, NEED FOR ADMIT AND ADDITIONAL TESTING INCLUDING MRI OF BRAIN, TREATMENT OF UTI, AND PT IS AGREEABLE TO PLAN. ALSO DISCUSSED CODE STATUS, AND PT WISHES TO BE DNR/DNI. REVIEWED PRIOR RECORDS, INCLUDING ER VISITS, ADMITS/H&P'S/CONSULTS/DISCHARGE SUMMARIES, TESTS/PROCEDURES. 9 VISITS SINCE HER FIRST VISIT HERE 07/2022 WHEN SHE WAS DX WITH METASTATIC LUNG CANCER. Diagnostic Imaging Comments CXR--CHRONIC INTERSTITIAL LUNG CHANGES, NO ACUTE CHANGES, PENDING RADIOLOGIST REVIEW PELVIS XRAY--NO ACUTE PROCESS, PENDING RADIOLOGIST REVIEW CT HEAD / MAXILLOFACIAL / CERVICAL SPINE--PER [facility] VIA FAX AT [id number] -LARGE FOCUS OF LOW ATTENUATION IN POSTERIOR AND SUPERIOR LEFT PARIETAL LOBE CONSISTENT WITH EDEMA. UNDERLYING MASS IS LIKELY. -NEGATIVE FOR MIDLINE SHIFT OR INTRACRANIAL HEMORRHAGE -MILD AGE-INDETERMINATE DEFORMITY OF DISTAL NASAL BONE. -OTHERWISE NO ACUTE FACIAL FRACTURE IDENTIFIED -NO EVIDENCE OF ACUTE FRACTURE OF CERVICAL SPINE -SEVERE INTERSTITIAL LUNG DISEASE WITH HONEYCOMBING FIBROSIS Reviewed: Reviewed by Me Focused Exam Sepsis Stage: Ruled Out Reason for ruling out sepsis: DOES NOT MEET CRITERIA Possible Source: Unknown Lactate Level 03/31/23 22:24: Lactic Acid Level 1.07 Time of Focused Exam: 00:35 Respiratory: Normal Breath Sounds, No Accessory Muscle Use, No Respiratory Distress Cardiovascular: Regular Rate, Rhythm, No JVD, No Murmur, Normal Peripheral Pulses Capillary Refill: Less Than 3 Seconds Skin: normal color, warm/dry Lactic Acid Level Laboratory Tests Test 03/31/23 22:24 Lactic Acid Level 1.07 MMOL/L (0.50-2.00) Within 3hrs of presentation: Admin fluids, Admin ABX, Blood cultures prior to ABX's, Focus exam, Lactate level Departure Communication (Admissions) 0035--SPOKE WITH DR. CAMPOS, HOSPITALIST. ACCEPTS PT FOR ADMIT. RECOMMENDATIONS NOTED FOR DECADRON AND KEPPRA DUE TO CEREBRAL EDEMA NOTED ON CT SCAN. 0047--REPORT TO E-ICU PHYSICIAN. Impression Primary Impression: Metastatic lung cancer (metastasis from lung to other site) Additional Impressions: UTI (urinary tract infection) Multiple falls Closed head injury without loss of consciousness CEREBRAL EDEMA WITH SUSPECTED BRAIN MASS TRANSIENT RIGHT ARM NUMBNESS AND WEAKNESS Poor balance Nasal fracture Facial contusion COPD WITH CHRONIC RESPIRATORY FAILURE Debility Chronic respiratory failure with hypoxia Chronic generalized pain Disposition: ADMITTED INPATIENT Condition: Stable Admissions Decision to Admit Reason: Admit from ER (General) Decision to Admit/Date: April 01, 2023 Time/Decision to Admit Time: 00:35 Departure-Patient Inst. Referrals: BAIRON HARRIS MD (PCP/Family) Primary Care Physician NICOLE CARNEY DO March 31, 2023 22:53
[2023-03-31 22:54] LABS: BUN/CREATININE RATIO 14
[2023-03-31 22:55] LABS: ACETAMINOPHEN < 10 UG/ML (10-30)
[2023-03-31 22:56] LABS: ALANINE AMINOTRANSFERASE 22 U/L (0-55); MAGNESIUM 1.6 MG/DL (1.6-2.4)
[2023-03-31 22:57] LABS: CREATINE KINASE 24 U/L (29-168)
[2023-03-31 23:03] LABS: CREATINE KINASE MB 1.6 NG/ML (<6.6)
[2023-04-01] MEDS ORDERED: morphine INJ 10 MG/ML 1ML (SYR OR VIAL) IVP STA (00:08)
[2023-04-01 00:10] LABS: BILIRUBIN,URINE NEGATIVE (NEGATIVE); CLARITY,URINE CLEAR; COLOR,URINE YELLOW; GLUCOSE, URINE (UA) NEGATIVE (NEGATIVE); KETONES,URINE NEGATIVE (NEGATIVE); LEUKOCYTE ESTERASE ,URINE 3+ (NEGATIVE); NITRITE,URINE NEGATIVE (NEGATIVE); PH,URINE 7.5 (5-9); PROTEIN,URINE NEGATIVE (NEGATIVE)
[2023-04-01 00:28] LABS: AMPHETAMINE SCREEN, URINE NEGATIVE (NEGATIVE); BARBITURATE SCREEN URINE NEGATIVE (NEGATIVE); BENZODIAZEPINES SCREEN URINE NEGATIVE (NEGATIVE); CANNABINOID SCREEN, URINE NEGATIVE (NEGATIVE); COCAINE SCREEN URINE NEGATIVE (NEGATIVE); METHADONE STAT NEGATIVE (NEGATIVE); OPIATE SCREEN URINE POSITIVE (NEGATIVE); OXYCODONE STAT POSITIVE (NEGATIVE); PROPOXYPHENE STAT NEGATIVE (NEGATIVE); TRICYCLIC ANTIDEPRESSANTS SCRE NEGATIVE (NEGATIVE)
[2023-04-01 00:29] LABS: BACTERIA,URINE NEGATIVE /HPF; RENAL EPITHELIAL CELLS,URINE 0-2 /HPF; SQUAMOUS EPITHELIAL CELL,UR 0-2 /HPF
[2023-04-01] MEDS ORDERED: levETIRAcetam 1000 mg/NS 100ml 100 ML IV ONE (00:45)
[2023-04-01] MEDS ORDERED: ONDANSETRON 4 MG/2 ML (SDV) Z0FRAN IV PRN (02:15)
--- NOTE | 2023-04-01 02:23 | Tele-ICU Consult ---
History of Present Illness History of Present Illness Date Seen by Provider: April 01, 2023 Time Seen by Provider: 02:16 History of Present Illness eICU admit note 73 yo F brought ot ED for cc falls, hitting head, face, no LOC, Pt has stage 4 Lung Ca, s/p- chemo, also COPD, on home oxygen, taking moprhine for pain WBC 10.7, Hb 8.4 plt 108, INR/PT nl, PTT nl, Cr 1.31, LA 1.07 CT head suggested brain met, started on IV Decadron. Ventricles are open In ED VS P 114, BP 119/78 Spont RR 24, SpO2 92% now on 4 oxymask, pt awake and alert Lungs slightly diminished Heart sinus tach Abd soft, no distension no leg edema A] Lung Ca with probable brain mets P] continue steroids, oxygen, bronchodilators COPD To get MRI Pt is DNR/DNI spoke with RN Allergies and Home Medications Allergies Coded Allergies: fentanyl (Verified Allergy, Intermediate, 09/03/22) hallucinations codeine (Verified Allergy, Unknown, ITCH/HIVES, 09/03/22) Home Medications Albuterol Sulfate 1 Puff Puff, 2 PUFF INH Q4H PRN for SHORTNESS OF BREATH, (Reported) Alprazolam 0.5 Mg Tablet, 0.5 MG PO TID PRN for ANXIETY, (Reported) Amlodipine Besylate 5 Mg Tablet, 5 MG PO DAILY, (Reported) Amoxicillin/Potassium Clav 875 Mg-125 Mg Tablet, 875 MG PO BID WITH MEALS Prescribed by: RONEN PÉREZ on 03/22/23 1026 Cyanocobalamin (Vitamin B-12) 500 Mcg Tablet, 500 MCG PO DAILY, (Reported) Docusate Sodium 100 Mg Capsule, 100 MG PO BID PRN for CONSTIPATION-1ST LINE, (Reported) Fluticasone/Umeclidin/Vilanter 100-62.5 Blst.w.dev, 1 EACH IH 1200, (Reported) Folic Acid 1 Mg Tablet, 1 MG PO DAILY, (Reported) Ipratropium/Albuterol Sulfate 0.5 Mg-3 Mg (2.5 Mg Base)/3 Ml Ampul.neb, 3 ML NEB Q4H PRN for SHORTNESS OF BREATH, (Reported) Lisinopril 40 Mg Tablet, 20 MG PO DAILY, (Reported) TAKES OF A 40MG TAB Metoprolol Tartrate 100 Mg Tablet, 100 MG PO BID, (Reported) Morphine Sulfate 15 Mg Tablet.er, 15 MG PO Q8H, (Reported) Multivit-Minerals/Folic Acid 200 Mcg Tab.chew, 1 EA PO DAILY, (Reported) Oxycodone HCl 5 Mg Tablet, 5 MG PO Q4H PRN for PAIN-SEVERE (8-10), (Reported) Pantoprazole Sodium 40 Mg Tablet.dr, 40 MG PO 1200, (Reported) Prednisone 10 Mg Tab.ds.pk, 10 MG PO DAILY Take 6 tabs(60mg)daily,decrease by 1 tab(10MG)daily. Prescribed by: RONEN PÉREZ on 03/22/23 1026 Promethazine HCl 25 Mg Tablet, 25 MG PO Q6H PRN for NAUSEA/VOMITING-2ND LINE, (Reported) Rosuvastatin Calcium 20 Mg Tablet, 20 MG PO HS, (Reported) Past Medical/Social/Family Hx Patient Social History Tobacco Use?: No Smoking Status: Former Smoker Use of E-Cig and/or Vaping dev: No Substance use?: No Alcohol Use?: No Pt stated abuse/neglect: No Immunizations Up To Date Influenza Vaccine Up-to-Date: No; Not Current First/Initial COVID19 Vaccinat: 12/12/2020 [employer] Second COVID19 Vaccination Noe: 01/07/2021 [employer] Tetanus Booster (TDap): Less Than 5 Years Hepatitis A: No Hepatitis B: No TB Skin Test: None Date of Pneumonia Vaccine: Jul 25, 2022 Current Status status: No status: No Advance Directives: Yes Advance Directive Location: Home Communicates: Verbally Primary Language: Guyanese Preferred Spoken Language: Guyanese Is interpretation needed?: No Implanted or Applied Medical D: Port-a-cath Review of Systems Constitutional: see HPI EENTM: see HPI Respiratory: see HPI Cardiovascular: see HPI Gastrointestinal: see HPI Genitourinary: see HPI Musculoskeletal: see HPI Skin: see HPI Psychiatric/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: See HPI Focused Exam Lactate Level 03/31/23 22:24: Lactic Acid Level 1.07 Height, Weight, BMI Height: '" Weight: lbs. oz. kg; 19.03 BMI Method: Time of Focused Exam: 00:35 Lactic Acid Level Laboratory Tests Test 03/31/23 22:24 Lactic Acid Level 1.07 MMOL/L (0.50-2.00) Exam Exam Patient acknowledged, consented, and participated in this virtual visit which was conducted using real time audio/video Vital Signs Date Time Temp Pulse Resp B/P (MAP) Pulse Ox O2 Delivery O2 Flow Rate FiO2 04/01/23 01:54 93 04/01/23 01:17 94 12 107/70 95 OxyMask 5.00 03/31/23 22:35 37.8 03/31/23 22:04 92 OxyMask 5.00 03/31/23 22:04 37.8 114 24 119/78 (92) 90 OxyMask 4.00 I & O 04/01/23 07:00 Intake Total 1150 ml Balance 1150 ml Height & Weight Height: '" Weight: lbs. oz. kg; 19.03 BMI Method: General Appearance: No Apparent Distress, Cachetic Respiratory: Normal Breath Sounds, No Accessory Muscle Use, No Respiratory Distress Cardiovascular: Regular Rate, Rhythm, No JVD, No Murmur, Normal Peripheral Pulses Capillary Refill: Less Than 3 Seconds Gastrointestinal: normal bowel sounds, non tender, soft Extremity: No Pedal Edema Neurologic/Psychiatric: Alert, Oriented x3 Results Lab Laboratory Tests 03/31/23 22:24 Assessment/Plan Assessment/Plan A] Lung Ca with probable brain mets P] continue steroids, oxygen, bronchodilators COPD To get MRI Pt is DNR/DNI spoke with studio producer: Critically Ill Patient Time spent with patient (mins): 20 MIRANDA WHITNEY MD April 01, 2023 02:23
[2023-04-01] MEDS: NOREPINEPHRINE 8 MG/250 ML 250 ML IV SCH (02:30)
[2023-04-01] MEDS ORDERED: EPINEPHrine 1 MG INJECTION 4 MG in NS (IVPB) 248 ML IV SCH (02:30)
[2023-04-01] MEDS: VASOPRESSIN INJECTION 20 UNIT in NS (IVPB) 100 ML IV SCH ×2 (02:30→14:14)
[2023-04-01] MEDS: LACTATED RINGERS 1,000 ML IV SCH ×4 (02:33→23:12)
[2023-04-01 02:34] VITALS: BP 106/72
[2023-04-01] MEDS ORDERED: RT-ALBUTEROL/IPRATROPIUM 3 ML (DUONEB) VIAL INH PRN (03:00)
[2023-04-01 04:21] LABS: MONOCYTES # (AUTO) 0.2 10^3/uL (0.0-1.0); MONOCYTES % (AUTO) 3 % (0-12)
[2023-04-01 04:23] LABS: BASOPHILS % (AUTO) 0 % (0-10); EOSINOPHILS % (AUTO) 1 % (0-10); HEMATOCRIT 28 % (35-52); HEMOGLOBIN 8.6 g/dL (11.5-16.0); LYMPHOCYTES # (AUTO) 0.9 10^3/uL (1.0-4.0); LYMPHOCYTES % (AUTO) 12 % (12-44); MEAN CORPUSCULAR HEMOGLOBIN 28 pg (25-34); MEAN CORPUSCULAR HGB CONC 31 g/dL (32-36); MEAN CORPUSCULAR VOLUME 90 fL (80-99); MEAN PLATELET VOLUME 9.5 fL (9.0-12.2); NEUTROPHILS # (AUTO) 6.3 10^3/uL (1.8-7.8); NEUTROPHILS % (AUTO) 82 % (42-75); PLATELET COUNT 109 10^3/uL (130-400); WHITE BLOOD COUNT 7.7 10^3/uL (4.3-11.0)
[2023-04-01 04:40] LABS: ALBUMIN 2.9 GM/DL (3.2-4.5); BILIRUBIN,TOTAL 0.3 MG/DL (0.1-1.0); CALCIUM 8.5 MG/DL (8.5-10.1); CREATININE SERUM 1.09 MG/DL (0.60-1.30); PHOSPHORUS 3.4 MG/DL (2.3-4.7); POTASSIUM 4.2 MMOL/L (3.6-5.0); TOTAL PROTEIN 4.5 GM/DL (6.4-8.2)
--- NOTE | 2023-04-01 07:08 | Diagnostic Imaging Report ---
EXAMINATION: Chest 1 view HISTORY: Chest injury COMPARISON: 03/20/2023 FINDINGS: There is moderate septal line thickening. There is a small left effusion. No pneumothorax. Heart size is normal. No significant change from prior exam. Right port catheter tip terminates in the superior vena cava. IMPRESSION: 1. Moderate septal line thickening and small left pleural effusions which may represent edema versus fibrosis. Dictated by: Dictated on workstation # [id number]
[2023-04-01] MEDS: RT-ALBUTEROL/IPRATROPIUM 3 ML (DUONEB) VIAL INH SCH ×5 (07:33→22:26)
--- NOTE | 2023-04-01 07:39 | Diagnostic Imaging Report ---
EXAMINATION: Pelvis 1 or 2 views HISTORY: Pelvic pain COMPARISON: None available. FINDINGS: Alignment is normal. No fracture is seen. Joint spaces are normal. IMPRESSION: 1. No fracture. Dictated by: Dictated on workstation # [id number]
--- NOTE | 2023-04-01 08:11 | Diagnostic Imaging Report ---
INDICATION: Trauma, pain. TECHNIQUE: Multiple contiguous axial images were obtained through the head, neck, and facial bones without the use of intravenous contrast. Sagittal and coronal reformations through the cervical spine and facial bones were also performed. Auto Exposure Controls were utilized during the CT exam to meet ALARA standards for radiation dose reduction. COMPARISON: There is no previous study for comparison. CT HEAD FINDINGS: There is no subdural or epidural collection. There is no acute intracranial hemorrhage. There is a low-density lesion with mass effect in the left parietal region, underlying neoplasm cannot be excluded. Would recommend further evaluation with MRI of the brain pre- and post-IV contrast. There is no ventricular dilatation. There is no other focal parenchymal abnormality of the brain. Calvarial windows show no fracture. CT MAXILLOFACIAL FINDINGS: There appears be a comminuted fracture of the nasal bone tip. Remaining facial some intact. Some motion artifact is present. There is mild mucosal thickening in the right maxillary sinus and ethmoid air cells. Orbital contents are unremarkable. There is trace of free fluid in the right sphenoid sinus. CT CERVICAL SPINE FINDINGS: There are diffuse degenerative changes throughout the cervical spine. There is disc space narrowing most prominent at C5-C6 and C6-C7. There is no subluxation or malalignment. There is marked diffuse facet degenerative change. Severe interstitial lung disease is noted in the visualized portions of the lung apices. IMPRESSION: CT HEAD shows no acute hemorrhage or calvarial fracture. There is a suspicious low-density area of mass effect in the left parietal lobe, underlying neoplasm cannot be excluded. Recommend further evaluation with MRI of the brain pre- and post-IV contrast. CT CERVICAL SPINE shows diffuse degenerative changes with no acute fracture or subluxation. Severe interstitial lung disease is noted in the visualized portions of the lung apices. CT MAXILLOFACIAL demonstrates a fracture of the nasal bone tip with mild sinus disease, as above. Dictated by: Dictated on workstation # [id number]
[2023-04-01] MEDS: levETIRAcetam 1000 mg/NS 100ml IVPB IV SCH ×2 (09:02→16:30)
[2023-04-01] MEDS: morphine INJ 4 MG/ML 1 ML (VIAL/SYRINGE) IV PRN ×4 (09:04→18:59)
[2023-04-01] MEDS: ALPRAZolam 0.5 MG (XANAX) TAB PO PRN ×2 (10:18→20:03)
--- NOTE | 2023-04-01 12:57 | History & Physical-Hospitalist ---
[facility] 04/01/23 1257: History of Present Illness HPI/Chief Complaint Lyndsey Sosa is a 73y F with PMH stage 4 lung cancer who presented to the ED 03/31 from [place] after having 2 falls at home. She felt lightheaded and dizzy before each fall and reportedly did not lose consciousness or have any shaking. She hit her nose, head, back of head. After the first fall her right arm went numb and she felt like she was not able to use it. This resolved within a few minutes and then she was able to stand up. She had been on her way to the bathroom to have a BM so she was incontinent of BM during fall because she "could not hold it". She next fell trying to get in the shower. She was recently hospitalized here for 5 days, discharged on 03/22, for a UTI and finished her antibiotics 3 days ago. She has not been able to get chemo for the past few months due to being in and out of the hospital for other issues. Today she states her shoulders are sore and she has a sore throat today. Is concerned about not receiving xanax. Notes having a PET scan Sunday through cancer center and had diarrhea after receiving contrast. Patient denies anything out of the ordinary prior to falls, no changes in diet, activity level, breathing, cold like symptoms, urinary symptoms. Her home health aid was last in home Sunday and did not have any concerns about the patient at that time. Today it is also noted she has a rash on her back. Patient denies pain or irritation, she has noted it in the shower previously. Source: patient Exam Limitations: no limitations Date Seen 04/01/23 Time Seen by a Provider: 08:45 Attending Physician Oscar Garnett MD PCP Admitting Physician: Fara Campos MD Attending Physician: Fara Campos MD Referring Physician Date of Admission April 01, 2023 at 00:35 Home Medications & Allergies Home Medications Reviewed patient Home Medication Reconciliation performed by pharmacy medication reconciliations senior manufacturing technician and/or nursing. Patients Allergies have been reviewed. Allergies Allergies Coded Allergies fentanyl (Verified Allergy, Intermediate, 09/03/22) hallucinations codeine (Verified Allergy, Unknown, ITCH/HIVES, 09/03/22) Past Rcmpmzt-Rltevr-Tdylqu Hx Patient Social History Tobacco Use?: No Tobacco type used: Cigarettes Smoking Status: Former Smoker Use of E-Cig and/or Vaping dev: No Substance use?: No Alcohol Use?: No Pt feels they are or have been: No Immunizations Up To Date First/Initial COVID19 Vaccinat: 12/12/2020 [employer]X Second COVID19 Vaccination Noe: 01/07/2021 [employer]X Tetanus Booster (TDap): Less Than 5 Years Hepatitis A: No Hepatitis B: No Date of Pneumonia Vaccine: Jul 25, 2022 Seasonal Allergies Seasonal Allergies: No Current Status status: No status: No Advance Directives: Yes Advance Directive Location: Home Communicates: Verbally Primary Language: Albanian Preferred Spoken Language: Albanian Is interpretation needed?: No Implanted or Applied Medical D: Port-a-cath Past Medical History Surgeries: Abdominal, Hysterectomy COPD Currently Using CPAP: No Currently Using BIPAP: No 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, 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, Menopausal Kidney Stones, UTI-Chronic Chronic Back Pain Lung Did You Recieve Any Treatments: Yes What Type of Treatment Did You: Chemotherapy Anxiety Blood Disorders: No Family Medical History No Pertinent Family Hx Review of Systems Constitutional: No chills, No fever EENTM: No blurred vision, No double vision, No nose congestion, No throat pain Respiratory: cough (chronic); No short of breath Cardiovascular: No chest pain, No palpitations Gastrointestinal: No abdominal pain, No constipation, No nausea, No vomiting Genitourinary: No decreased output, No dysuria Musculoskeletal: muscle cramps (hands) Skin: No pruritus; rash (back) Psychiatric/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: Denies Headache; Weakness (right arm) All Other Systems Reviewed Negative Unless Noted: Yes (Negative excepted noted.) Physical Exam Physical Exam Vital Signs Vital Signs - First Documented Capillary Refill : Less Than 3 Seconds Height, Weight, BMI Height: '" Weight: lbs. oz. kg; 19.49 BMI Method: General Appearance: No Apparent Distress, Anxious, Thin HEENT: PERRL/EOMI, Moist Mucous Membranes Neck: Full Range of Motion, Normal Inspection Respiratory: Lungs Clear, No Respiratory Distress, Decreased Breath Sounds Cardiovascular: Regular Rate, Rhythm, No Murmur Gastrointestinal: Non Tender, Soft Extremity: Non Tender, No Pedal Edema Neurologic/Psychiatric: Alert, Oriented x3, Normal Mood/Affect, shoe planner II-XII Norm as Tested Skin: Warm/Dry, Rash (erythematous round lesions grouped on lower back, cross midline), Other (scabbed abrasions on nose) Results Results/Procedures Labs Laboratory Tests 03/31/23 22:24 04/01/23 03:38 Patient resulted labs reviewed. Imaging: Reviewed Imaging Films, Reviewed Imaging Report Assessment/Plan Admission Diagnosis Head injury post fall Admission Status: Inpatient Order (span 2 midnights) Reason for Inpatient Admission: Imaging, observation, cerebral edema treatment Assessment and Plan Head injury post fall Cerebral edema Lung cancer likely with metastasis to brain COPD CT head with cerebral edema and possible underlying neoplasm left parietal region Continue steroids, oxygen, albuterol Discussed with patient options of further investigation with MRI and rad/onc consultation vs palliative care, pt would like to proceed with imaging MRI ordered for tomorrow Keppra for seizure prophylaxis Palliative care consulted Nasal fracture Pain control Rash Seems chronic and no sxs at this time, monitor for acute changes or pain FARA CAMPOS MD 04/01/232023: History of Present Illness Time Seen by a Provider: 10:20 Past Erdqrxd-Beotvl-Dugxjd Hx Family Medical History No Pertinent Family Hx Results Results/Procedures Imaging: Reviewed Imaging Films, Reviewed Imaging Report Assessment/Plan Admission Diagnosis Cerebral edema Admission Status: Inpatient Order (span 2 midnights) Reason for Inpatient Admission: Brain mass Assessment and Plan Admitted after a fall with cerebral edema with likely brain mass, presumably due to metastatic lung cancer. Started on Decadron and Keppra. MRI ordered for tomorrow morning. May need radiation oncology consult for consideration of palliative radiation. Palliative care consulted due to poor prognosis and recurrent hospitalizations. Previously discussed hospice options during prior admission. Critical Care Critically Ill Patient Diagnosis/Problems Diagnosis/Problems (1) Cerebral edema Status: Acute (2) Brain mass Status: Acute (3) Fall Status: Acute Qualifiers: Encounter type: initial encounter Qualified Codes: W19.XXXA - Unspecified fall, initial encounter (4) Closed head injury without loss of consciousness Status: Acute Qualifiers: Encounter type: initial encounter Qualified Codes: S09.90XA - Unspecified injury of head, initial encounter (5) Metastatic lung cancer (metastasis from lung to other site) Status: Acute (6) Chronic respiratory failure with hypoxia Status: Chronic (7) Debility Status: Acute (8) Pulmonary cachexia due to COPD Status: Chronic (9) Nasal fracture Status: Acute Qualifiers: Encounter type: initial encounter Fracture type: closed Qualified Codes: S02.2XXA - Fracture of nasal bones, initial encounter for closed fracture Supervisory-Addendum Brief Verification & Attestation Participated in pt care: history, MDM, physical Personally performed: exam, history, MDM, supervision of care Care discussed with: Medical Student Procedures: n/a Results interpretation: Verified all documentation A medical student performed and documented this service in my presence. I reviewed and verified all information documented by the medical student and made modifications to such information, when appropriate. I personally performed the physical exam and medical decision making. CORRINE VICENTE April 01, 2023 12:57 FARA CAMPOS MD April 01, 2023 20:24
[2023-04-01] MEDS: CEFEPIME INJECTION 1,000 MG in NS (IVPB) 50 ML IV SCH (14:22)
[2023-04-02] MEDS: VASOPRESSIN INJECTION 20 UNIT in NS (IVPB) 100 ML IV SCH ×3 (00:55→22:16)
[2023-04-02] MEDS: CEFEPIME INJECTION 1,000 MG in NS (IVPB) 50 ML IV SCH ×3 (01:15→18:32)
[2023-04-02] MEDS: levETIRAcetam 1000 mg/NS 100ml IVPB IV SCH ×3 (02:00→17:00)
[2023-04-02] MEDS: RT-ALBUTEROL/IPRATROPIUM 3 ML (DUONEB) VIAL INH SCH ×5 (02:32→21:39)
[2023-04-02] MEDS: NOREPINEPHRINE 8 MG/250 ML 250 ML IV SCH (02:39)
[2023-04-02] MEDS: LACTATED RINGERS 1,000 ML IV SCH ×3 (05:18→19:22)
[2023-04-02 05:32] LABS: BASOPHILS % (AUTO) 0 % (0-10); EOSINOPHILS % (AUTO) 0 % (0-10); HEMATOCRIT 26 % (35-52); HEMOGLOBIN 8.4 g/dL (11.5-16.0); LYMPHOCYTES # (AUTO) 0.5 10^3/uL (1.0-4.0); LYMPHOCYTES % (AUTO) 5 % (12-44); MEAN CORPUSCULAR HEMOGLOBIN 29 pg (25-34); MEAN CORPUSCULAR HGB CONC 32 g/dL (32-36); MEAN CORPUSCULAR VOLUME 90 fL (80-99); MEAN PLATELET VOLUME 8.7 fL (9.0-12.2); MONOCYTES # (AUTO) 0.4 10^3/uL (0.0-1.0); MONOCYTES % (AUTO) 4 % (0-12); NEUTROPHILS # (AUTO) 7.6 10^3/uL (1.8-7.8); NEUTROPHILS % (AUTO) 89 % (42-75); PLATELET COUNT 82 10^3/uL (130-400); WHITE BLOOD COUNT 8.6 10^3/uL (4.3-11.0)
[2023-04-02 05:53] LABS: ALBUMIN 3.1 GM/DL (3.2-4.5); BILIRUBIN,TOTAL 0.2 MG/DL (0.1-1.0); CALCIUM 8.4 MG/DL (8.5-10.1); CREATININE SERUM 0.93 MG/DL (0.60-1.30); MAGNESIUM 1.7 MG/DL (1.6-2.4); PHOSPHORUS 2.9 MG/DL (2.3-4.7); POTASSIUM 3.8 MMOL/L (3.6-5.0); TOTAL PROTEIN 4.9 GM/DL (6.4-8.2)
[2023-04-02] MEDS ORDERED: NS IV 500 ML 500 ML IV PRN (06:00)
[2023-04-02] MEDS: KCL 20 MEQ TAB (K-DUR) PO SCH (06:03)
[2023-04-02] MEDS: MAGNESIUM 1 GM/100 ML IVPB 100 ML IV SCH ×5 (06:03→09:30)
[2023-04-02] MEDS: POTASSIUM CL 10MEQ/50ML IVPB 50 ML IV SCH ×3 (06:04→07:37)
[2023-04-02] MEDS ORDERED: MAGNESIUM 1 GM/100 ML IVPB 400 ML IV ONE (06:16)
[2023-04-02 06:19] LABS: BAND NEUTROPHILS 1 %; LYMPHOCYTES % (MANUAL) 7 %; MONOCYTES % (MANUAL) 2 %; NEUTROPHILS % (MANUAL) 90 %; RBC MORPH NORMAL
--- NOTE | 2023-04-02 08:30 | Progress Note - Hospitalist ---
Subjective HPI/CC On Admission Date Seen by Provider: April 02, 2023 Lyndsey Sosa is a 73y F with H stage 4 lung cancer who presented to the ED 03/31 from [place] after having 2 falls at home. She felt lightheaded and dizzy before each fall and reportedly did not lose consciousness or have any shaking. She hit her nose, head, back of head. After the first fall her right arm went numb and she felt like she was not able to use it. This resolved within a few minutes and then she was able to stand up. She had been on her way to the bathroom to have a BM so she was incontinent of BM during fall because she "could not hold it". She next fell trying to get in the shower. She was recently hospitalized here for 5 days, discharged on 03/22, for a UTI and finished her antibiotics 3 days ago. She has not been able to get chemo for the past few months due to being in and out of the hospital for other issues. Today she states her shoulders are sore and she has a sore throat today. Is concerned about not receiving xanax. Notes having a PET scan Sunday through cancer center and had diarrhea after receiving contrast. Patient denies anything out of the ordinary prior to falls, no changes in diet, activity level, breathing, cold like symptoms, urinary symptoms. Her home health aid was last in home Sunday and did not have any concerns about the patient at that time. Today it is also noted she has a rash on her back. Patient denies pain or irr itation, she has noted it in the shower previously. Subjective/Events-last exam Pt reports feeling about the same. Worried about MRI. She states she had PET scan done one week ago without any brain findings. Results are not available in our system. Focused Exam Lactate Level 03/31/23 22:24: Lactic Acid Level 1.07 Time of Focused Exam: 00:35 Objective Exam Vital Signs Vital Signs Date Time Temp Pulse Resp B/P (MAP) Pulse Ox O2 Delivery O2 Flow Rate FiO2 04/02/23 08:00 95 107/65 (79) 98 OxyMask 2.00 04/01/23 19:59 35.9 04/01/23 01:17 12 Capillary Refill : Less Than 3 Seconds General Appearance: No Apparent Distress, Chronically ill, Cachetic Respiratory: Lungs Clear, No Accessory Muscle Use Cardiovascular: Regular Rate, Rhythm, No Murmur Gastrointestinal: Normal Bowel Sounds, Soft Neurologic/Psychiatric: Alert, Oriented x3 Results/Procedures Lab Laboratory Tests 04/02/23 05:28 Patient resulted labs reviewed. Imaging: Reviewed Imaging Films, Reviewed Imaging Report Assessment/Plan Assessment and Plan Assess & Plan/Chief Complaint Head injury post fall Cerebral edema Lung cancer likely with metastasis to brain End Stage COPD Acute on Chronic Hypoxic Respiratory Failure CT head with cerebral edema and possible underlying neoplasm left parietal region Continue steroids for cerebral edema MRI today Discussed with Dr Marroquin who will see in consult, dariel Hollins for seizure prophylaxis Palliative care consulted On home oxygen HTN HLD GERD BP well controlled, trend Continue home metoprolol No acute needs Nasal fracture Pain control Critical Care Critically Ill Patient RONEN PÉREZ MD April 02, 2023 08:30
[2023-04-02] MEDS: ALPRAZolam 0.5 MG (XANAX) TAB PO PRN ×2 (10:41→23:18)
[2023-04-02] MEDS ORDERED: HYDR-3781 PO (11:19)
[2023-04-02] MEDS ORDERED: GADOTERATE 0.5 MMOL/ML (CLARISCAN) 15 ML VIAL IV ONE (12:15)
--- NOTE | 2023-04-02 12:50 | Diagnostic Imaging Report ---
PROCEDURE: MR angiography of the brain without the use of contrast. TECHNIQUE: 3D [id number] non contrast enhanced MR angiography of the head was performed. A source data was reformatted into rotating MIP projections. INDICATION: Cerebral edema Comparison MRI of the brain on the same date. FINDINGS: The intracranial ICAs, MCA's, ACAs are patent and normal in caliber. The intracranial vertebral arteries, basilar artery, and bilateral flight engineer inspector are patent and normal in caliber. IMPRESSION: No large vessel occlusion. No aneurysm or arteriovenous malformation. Dictated by: Dictated on workstation # [id number]
--- NOTE | 2023-04-02 12:52 | Diagnostic Imaging Report ---
PROCEDURE: MR angiography neck without contrast. TECHNIQUE: Non contrast enhanced MR angiography of the neck was performed. Source data was reformatted into rotating MIP projections. INDICATION: Cerebral edema. FINDINGS: The examination is slightly limited secondary to patient motion and noncontrast technique. Antegrade flow within the right common carotid artery. No evidence of high-grade stenosis within the right internal carotid artery, though somewhat limited without intravenous contrast. Antegrade flow within the right vertebral artery. Antegrade flow within the left common carotid artery. No evidence of high-grade stenosis of the left internal carotid artery, though somewhat limited without intravenous contrast. Antegrade flow within the left vertebral artery. IMPRESSION: 1. Slightly limited exam secondary to patient motion and noncontrast technique. 2. Antegrade flow within the bilateral carotid and vertebral arteries. No evidence for high-grade stenosis of the internal carotid arteries, though somewhat limited without intravenous contrast. Recommend carotid duplex ultrasound to evaluate for any carotid stenosis. Measurements of vascular lumen diameter is performed on MIP and source images and measured by NASCET ([place] symptomatic carotid endarterectomy trial) criteria. Dictated by: Dictated on workstation # [id number]
--- NOTE | 2023-04-02 12:57 | Diagnostic Imaging Report ---
PROCEDURE: MR imaging of the brain with and without contrast. TECHNIQUE: Multiplanar, multisequence MR imaging of the brain was performed with and without contrast. INDICATION: Cerebral edema. Comparison CT of the head on the same day. FINDINGS: No acute infarct. Ring-enhancing lesion within the left frontal lobe measuring 0.8 cm with central diffusion restriction and surrounding confluent vasogenic edema causing effacement of the cortical sulci. No midline shift. 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 Mild scattered T2/FLAIR hyperintensity within the periventricular and subcortical white matter. No acute or chronic hemorrhage. The ventricles and cortical sulci are normal. The sella is normal. The paranasal sinuses and mastoids are clear. The globes and orbits are normal. The excepted flow voids are maintained. IMPRESSION: 0.8 cm ring-enhancing lesion within the left posterior frontal lobe in the precentral gyrus with high internal diffusion restriction concerning for abscess. Significant surrounding vasogenic edema with mass effect on the cortical sulci. No midline shift. No other lesions identified. The differential diagnosis would include metastatic lesion, neoplasm, or demyelination. Mild chronic small vessel ischemic disease. 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 Dictated by: Dictated on workstation # [id number]
--- NOTE | 2023-04-02 14:07 | Tele-ICU Progress Note ---
Subjective Date Seen by a Provider: April 02, 2023 Time Seen by a Provider: 14:07 Subjective/Events-last exam (Tele-ICU Physician , Progress Note ) Service provided via interactive audio and video telecommunications E-CARE system to a patient admitted to ICU bed in [facility]. Patient is seen today due to persistent need of ICU care Available chart/ vitals / labs / Images reviewed Video assessment done using teleICU camera, rest of exam as per RN Discussed with RN Events overnight : Afebrile hemodynamically stable Respiratory - I/O = Drips: Pressors- no Hospital course: RECENT ADMISSIONs: 01/2023 - [place] for PNA with zisyn , was on VT/ BIPAP , prededex , steroids , eventially d/c home on 2 L o2 03/17) Worsening Hypoxia secondary to Stage 4 Lung Ca with Mets, CTCh 03/17 - NO PE- New bibasilar airspace opacities 03/18 -ARF- VT, UTI, PNA 04/01- s/p fall with head injury and cerebral edema--possible underlying neoplasm parietal region. (lung CA w/mets to brain A/P Cerebral edema, CT head with cerebral edema and possible underlying neoplasm left parietal region - decadron IV - MRI pending - esteban rodriguez with deborah - onc consulted Nasal fracture -Pain control PNA cefepime started empirically ( given immunocompr state ) Metastatic Lung Cancer -Diagnosed on 08/03/22 >Mets to bone and L adrenal gland - same size by last CT , now with likely with metastasis to brain -Diffuse bilateral interstitial thickening and course bilateral reticular opacities. LAD on recent CT Chronic resp failure- COPD -Severe underlying emphysema - CTCh 03/17 - - on decadron for brain edema - cont br - dilators Tachycardia - pain and anxiety Anxiety - xanax prn ativan prn Head injury post fall - CT - no bleed Chronic pain syndrome due to malignancy - cont po meds Lines : , (Central Line Necessity Reviewed) Vo: OG: Nutrition: Analgesia: Anxiety/ delirium VTE Prophylaxis: scd - post fall , ? brain mets Stress Ulcer Prophylaxis: Plans in collaboration with bedside consultants and IM MDs. Discussed with RN to reach out if any questions or concerns Case and care daily discussed on multidisciplinary rounds ( RN, PharmD, Acute Care Physical Therapist , Respiratory Therapy, police worker ) A total of 31 minutes of critical care time was devoted to this patient today, required to treat and/or prevent further deterioration of critical care condition ( as above ) . I am remotely monitoring this patient from another state. I am unable to do the bedside exam, and history/physical and pertinent information is taken from other notes in the computer and bedside staff. Sepsis Event Evaluation Height, Weight, BMI Height: '" Weight: lbs. oz. kg; 19.81 BMI Method: Focused Exam Lactate Level 03/31/23 22:24: Lactic Acid Level 1.07 Time of Focused Exam: 00:35 Exam Exam Patient acknowledged, consented, and participated in this virtual visit which was conducted using real time audio/video Vital Signs Date Time Temp Pulse Resp B/P (MAP) Pulse Ox O2 Delivery O2 Flow Rate FiO2 04/02/23 13:10 112 04/02/23 11:00 129 149/89 (109) 97 OxyMask 2.00 04/02/23 10:10 95 Nasal Cannula 1.50 04/02/23 10:00 103 137/84 (101) 95 OxyMask 2.00 04/02/23 09:00 109 153/82 (105) 91 OxyMask 2.00 04/02/23 08:00 95 107/65 (79) 98 OxyMask 2.00 04/02/23 07:37 96 04/02/23 07:00 80 137/73 (94) 98 OxyMask 2.00 04/02/23 06:00 86 130/73 (92) 96 OxyMask 2.00 04/02/23 05:00 78 149/80 (103) 98 OxyMask 2.00 04/02/23 04:00 77 142/76 (98) 99 OxyMask 2.00 04/02/23 04:00 97 Nasal Cannula 3.00 04/02/23 03:00 97 126/74 (91) 96 OxyMask 2.00 04/02/23 02:32 97 Nasal Cannula 3.00 04/02/23 02:00 94 126/79 (95) 98 OxyMask 2.00 04/02/23 01:00 70 04/02/23 01:00 69 144/72 (96) 100 OxyMask 2.00 04/02/23 00:00 75 134/102 (113) 99 OxyMask 2.00 04/01/23 23:59 98 Nasal Cannula 3.00 04/01/23 23:00 75 127/71 (89) 99 OxyMask 2.00 04/01/23 22:26 100 Nasal Cannula 3.00 04/01/23 22:00 90 131/80 (97) 100 OxyMask 2.00 04/01/23 21:00 100 113/65 (81) 98 OxyMask 2.00 04/01/23 20:00 123 167/98 (121) 90 OxyMask 2.00 04/01/23 20:00 99 Nasal Cannula 2.00 04/01/23 19:59 35.9 04/01/23 19:00 106 150/88 (108) 91 OxyMask 2.00 04/01/23 19:00 106 04/01/23 18:56 85 Room Air 2.00 04/01/23 18:00 77 131/80 (105) 94 OxyMask 2.00 04/01/23 17:00 83 135/76 (105) 95 OxyMask 2.00 04/01/23 16:00 84 127/91 (115) 95 OxyMask 2.00 04/01/23 16:00 98 Nasal Cannula 2.00 04/01/23 15:44 35.7 04/01/23 15:15 94 Nasal Cannula 2.00 04/01/23 15:00 85 130/73 (95) 94 OxyMask 2.00 I & O 04/02/23 07:00 Intake Total 4250 ml Output Total 3325 ml Balance 925 ml Height & Weight Height: '" Weight: lbs. oz. kg; 19.81 BMI Method: General Appearance: No Apparent Distress, Chronically ill, Cachetic HEENT: PERRL/EOMI, Moist Mucous Membranes Neck: Full Range of Motion, Normal Inspection Respiratory: Lungs Clear, No Accessory Muscle Use Cardiovascular: Regular Rate, Rhythm, No Murmur Capillary Refill: Less Than 3 Seconds Gastrointestinal: non tender, soft Extremity: Non Tender, No Pedal Edema Neurologic/Psychiatric: Alert, Oriented x3 Skin: Warm/Dry, Rash (erythematous round lesions grouped on lower back, cross midline), Other (scabbed abrasions on nose) Results Lab Laboratory Tests 03/31/23 22:24 04/01/23 03:38 04/02/23 05:28 Assessment/Plan Assessment/Plan 1 ARELI OROPEZA MD April 02, 2023 14:07
--- NOTE | 2023-04-02 14:22 | Physical Therapy Progress Note ---
Therapy Progress Note Attempted to see patient for PT initial evaluation. Patient sleeping upon PT arrival. She politely declines due to being tired. Will attempt again tomorrow. LUPE WETZEL PT April 02, 2023 14:22
[2023-04-02] MEDS: morphine ER 15 MG (MS CONTIN) TAB PO SCH ×2 (19:23→22:21)
[2023-04-03] MEDS: CEFEPIME INJECTION 1,000 MG in NS (IVPB) 50 ML IV SCH ×2 (00:37→08:44)
[2023-04-03] MEDS: levETIRAcetam 1000 mg/NS 100ml IVPB IV SCH ×2 (00:38→08:28)
[2023-04-03] MEDS: RT-ALBUTEROL/IPRATROPIUM 3 ML (DUONEB) VIAL INH SCH ×6 (02:24→22:31)
[2023-04-03] MEDS: NOREPINEPHRINE 8 MG/250 ML 250 ML IV SCH (02:30)
[2023-04-03] MEDS: LACTATED RINGERS 1,000 ML IV SCH ×2 (03:28→08:30)
[2023-04-03] MEDS: morphine ER 15 MG (MS CONTIN) TAB PO SCH ×3 (05:24→21:04)
[2023-04-03 05:30] LABS: BASOPHILS % (AUTO) 0 % (0-10); NEUTROPHILS % (AUTO) 90 % (42-75)
[2023-04-03 05:32] LABS: EOSINOPHILS % (AUTO) 0 % (0-10); HEMATOCRIT 29 % (35-52); HEMOGLOBIN 9.1 g/dL (11.5-16.0); LYMPHOCYTES # (AUTO) 0.7 10^3/uL (1.0-4.0); LYMPHOCYTES % (AUTO) 6 % (12-44); MEAN CORPUSCULAR HEMOGLOBIN 28 pg (25-34); MEAN CORPUSCULAR HGB CONC 31 g/dL (32-36); MEAN CORPUSCULAR VOLUME 91 fL (80-99); MEAN PLATELET VOLUME 9.3 fL (9.0-12.2); MONOCYTES # (AUTO) 0.3 10^3/uL (0.0-1.0); MONOCYTES % (AUTO) 3 % (0-12); NEUTROPHILS # (AUTO) 10.7 10^3/uL (1.8-7.8); PLATELET COUNT 132 10^3/uL (130-400)
[2023-04-03 05:45] LABS: ALBUMIN 3.1 GM/DL (3.2-4.5); POTASSIUM 3.9 MMOL/L (3.6-5.0)
[2023-04-03 05:46] LABS: CALCIUM 8.8 MG/DL (8.5-10.1)
[2023-04-03 05:47] LABS: TOTAL PROTEIN 5.1 GM/DL (6.4-8.2)
[2023-04-03 05:49] LABS: BILIRUBIN,TOTAL 0.2 MG/DL (0.1-1.0)
[2023-04-03 05:50] LABS: PHOSPHORUS 2.7 MG/DL (2.3-4.7)
[2023-04-03 05:51] LABS: CREATININE SERUM 0.74 MG/DL (0.60-1.30)
[2023-04-03 05:54] LABS: MAGNESIUM 2.1 MG/DL (1.6-2.4)
[2023-04-03] MEDS: KCL 20 MEQ TAB (K-DUR) PO SCH (06:07)
[2023-04-03] MEDS: POTASSIUM CL 10MEQ/50ML IVPB 50 ML IV SCH ×3 (06:07→07:19)
[2023-04-03] MEDS: MAGNESIUM 1 GM/100 ML IVPB 100 ML IV SCH (06:07)
[2023-04-03] MEDS: ALPRAZolam 0.5 MG (XANAX) TAB PO PRN ×2 (07:22→15:17)
--- NOTE | 2023-04-03 08:12 | Physical Therapy Evaluation ---
PT Evaluation-General Medical Diagnosis Admission Date April 01, 2023 at 00:35 Medical Diagnosis: metastatic lung cancer Onset Date: April 01, 2023 Therapy Diagnosis Therapy Diagnosis: debility/weakness Precautions Precautions/Isolations: Fall Prevention, Standard Precautions Referral Physician: Niyah Reason for Referral: Evaluation/Treatment Medical History Pertinent Medical History: COPD, HTN, Smoking Current History EMS secondary to falls due to LOB/probable mets to brain Reviewed History: Yes Social History Home: Apartment Current Living Status: Alone (caregivers PRN/family) Entry Into Home: Level Entry Prior Prior Level of Function SCALE: Activities may be completed with or without assistive devices. 5-Ljhkybftqx-pdyomxm completes the activity by him/herself with no assistance from a helper. 5-Set-up or Clean-up Assistance-helper sets up or cleans up; patient completes activity. [place] assists only prior to or following the activity. 4-Supervision or Touching Assistance-helper provides verbal cues and/or touching/steadying and/or contact guard assistance as patient completes activity. Assistance may be provided throughout the activity or intermittently. 3-Partial/Moderate Assistance-helper does LESS THAN HALF the effort. Bill[place] lifts, holds or supports trunk or limbs, but provides less than half the effort. 2-Substantial/Maximal Assistance-helper does MORE THAN HALF the effort. Bill[place] lifts or holds trunk or limbs and provides more than half the effort. 0-Uxszkszuf-iqdbkm does ALL the effort. Patient does none of the effort to complete the activity. Or, the assistance of 2 or more helpers is required for the patient to complete the activity. If activity was not attempted, code reason: 7-Patient Refused. 9-Not Applicable-not attempted and the patient did not perform the activity before the current illness, exacerbation or injury. 10-Not Attempted due to Environmental Limitations-(lack of equipment, weather restraints, etc.). 88-Not Attempted due to Medical Conditions or Safety Concerns. Bed Mobility: 6 Transfers (B,C,W/C): 6 Gait: 6 Indoor Mobility (Ambulation): Independent Prior Devices Use: Walker PT Evaluation-Current Subjective Patient agrees to PT. Objective Patient Orientation: Person, Time, Situation Attachments: Oxygen, Vo Catheter, IV ROM/Strength ROM Lower Extremities bilateral LE WFL Strength Upper Extremities noted right UE deficit with motor control Strength Lower Extremities 3/5 grossly bilateral LE all planes Integumentary/Posture Bladder Incontinence: Vo Cath Posture WFL Neuromuscular (Tone, Coordination, Reflexes) grossly intact Sensory Vision: Functional Hearing: Functional Transfers Sit to Lying (QC): 6 Lying to Sitting/Side of Bed(Q: 6 Sit to Stand (QC): 4 Gait Walk 10 feet (QC): 7 Balance Sitting Static: Normal Sitting Dynamic: Normal Standing Static: Fair Standing Dynamic: Fair Assessment/Needs Patient will benefit from skilled PT to address functional strength and mobility to improve current LOF. Patient is currently SBA with sit to stand and declined ambulation at this time. RN made aware. Rehab Potential: Guarded PT Shelter Goals Aircraft [employer] Goals PT Shelter Goals Time Frame: April 14, 2023 Roll Left & Right (QC): 6 Sit to Lying (QC): 6 Lying-Sitting on Side/Bed(QC): 6 Sit to Stand (QC): 6 Chair/Ycy-ta-Tauvs Xfer(QC): 6 Toilet Transfer (QC): 6 Walk 10 feet (QC): 5 Walk 50ft with 2 Turns (QC): 5 Walk 150 ft (QC): 5 PT Plan Problem List Problem List: Activity Tolerance, Functional Strength, Safety, Balance, Gait, Transfer Treatment/Plan Treatment Plan: Continue Plan of Care Treatment Plan: Education, Functional Activity Andra, Functional Strength, Gait, Safety, Therapeutic Exercise, Transfers Treatment Duration: April 14, 2023 Frequency: 6 times per week Estimated Hrs Per Day: .25 hour per day Patient and/or Family Agrees t: Yes Time Time In: 735 Time Out: 745 DATE: April 03, 2023 Total Billed Treatment Time: 10 Total Billed Treatment 1 visit [facility] 10 min ELISSA VALLE PT April 03, 2023 08:12
--- NOTE | 2023-04-03 08:41 | Tele-ICU Progress Note ---
Subjective Date Seen by a Provider: April 03, 2023 Time Seen by a Provider: 08:39 Subjective/Events-last exam Service provided via interactive audio and video telecommunications E-CARE system to a patient admitted to ICU bed in [facility]. Available chart/ vitals / labs / Images reviewed H&P is from ER notes Patient's information available about PMH, Shx, Fhx allergy reviewed in EMR. ROS as per chart and RN report Now in ICU, hemodynamically stable Video assessment done using teleICU camera, rest of exam as per RN Discussed with RN. 72 yo F with lung Ca Stage 4, fell, on CT head found to have probable mets to left parietal area, started on Kepra, Decadron Sepsis Event Evaluation Height, Weight, BMI Height: '" Weight: lbs. oz. kg; 19.91 BMI Method: Focused Exam Lactate Level 03/31/23 22:24: Lactic Acid Level 1.07 Time of Focused Exam: 00:35 Exam Exam Patient acknowledged, consented, and participated in this virtual visit which was conducted using real time audio/video Vital Signs Date Time Temp Pulse Resp B/P (MAP) Pulse Ox O2 Delivery O2 Flow Rate FiO2 04/03/23 08:19 94 Nasal Cannula 2.00 04/03/23 08:08 Nasal Cannula 2.00 04/03/23 08:00 36.4 04/03/23 08:00 93 132/85 (101) 97 Nasal Cannula 2.00 04/03/23 07:39 109 04/03/23 07:29 92 Room Air 04/03/23 07:00 101 161/99 (119) 90 Nasal Cannula 2.00 04/03/23 06:00 79 150/82 (104) 92 Nasal Cannula 2.00 04/03/23 05:00 73 20 162/93 (116) 93 Nasal Cannula 2.00 04/03/23 04:00 78 18 154/91 (112) 91 Nasal Cannula 2.00 04/03/23 04:00 36.7 04/03/23 03:27 91 Nasal Cannula 3.00 04/03/23 03:00 88 18 146/87 (106) 92 Nasal Cannula 2.00 04/03/23 02:00 88 18 154/84 (107) 91 Nasal Cannula 2.00 04/03/23 01:00 92 20 144/87 (106) 93 Nasal Cannula 2.00 04/03/23 00:44 95 04/03/23 00:00 91 Nasal Cannula 3.00 04/03/23 00:00 36.5 04/03/23 00:00 93 18 144/80 (101) 92 Nasal Cannula 2.00 04/02/23 23:10 92 Nasal Cannula 2.00 04/02/23 23:00 112 16 146/92 (110) 88 Nasal Cannula 2.00 04/02/23 22:00 81 18 150/82 (104) 94 Nasal Cannula 2.00 04/02/23 21:00 86 18 148/92 (110) 94 Nasal Cannula 2.00 04/02/23 20:00 90 18 137/80 (99) 93 Nasal Cannula 2.00 04/02/23 19:56 93 Nasal Cannula 3.00 04/02/23 19:45 36.8 04/02/23 19:06 95 04/02/23 19:00 87 16 132/70 (90) 95 Nasal Cannula 2.00 04/02/23 18:25 92 Room Air 04/02/23 18:00 92 130/79 (96) 90 Nasal Cannula 2.00 04/02/23 17:00 81 137/78 (97) 94 Nasal Cannula 2.00 04/02/23 16:00 82 126/65 (85) 94 Nasal Cannula 2.00 04/02/23 15:30 86 123/70 (87) 91 Nasal Cannula 2.00 04/02/23 14:00 95 Nasal Cannula 2.00 04/02/23 13:10 112 04/02/23 12:00 97 Nasal Cannula 3.00 04/02/23 11:00 129 149/89 (109) 97 OxyMask 2.00 04/02/23 10:10 95 Nasal Cannula 1.50 04/02/23 10:00 103 137/84 (101) 95 OxyMask 2.00 04/02/23 09:00 109 153/82 (105) 91 OxyMask 2.00 I & O 04/03/23 07:00 Intake Total 1300 ml Output Total 5525 ml Balance -4225 ml Height & Weight Height: '" Weight: lbs. oz. kg; 19.91 BMI Method: General Appearance: No Apparent Distress, Chronically ill, Cachetic HEENT: PERRL/EOMI, Moist Mucous Membranes Neck: Full Range of Motion, Normal Inspection Respiratory: Lungs Clear, No Accessory Muscle Use Cardiovascular: Regular Rate, Rhythm, No Murmur Capillary Refill: Less Than 3 Seconds Gastrointestinal: normal bowel sounds, non tender, soft Extremity: Non Tender, No Pedal Edema Neurologic/Psychiatric: Alert, Oriented x3, Other (slight weakness of right arm) Skin: Warm/Dry, Rash (erythematous round lesions grouped on lower back, cross midline), Other (scabbed abrasions on nose) Results Lab Laboratory Tests 04/02/23 05:28 04/03/23 05:15 Assessment/Plan Assessment/Plan Pt DNR Stage 4 Lungs with probable brain mets to left pairetal area will continue on IV cefepime, Kepra and Decadron To be seen by palliative care, also to be seen by RT for brain met No Sz activity today Pt DNR Critical Care: Critically Ill Patient Time spent with patient (mins): 25 MIRANDA WHITNEY MD April 03, 2023 08:41
[2023-04-03] MEDS: VASOPRESSIN INJECTION 20 UNIT in NS (IVPB) 100 ML IV SCH (09:35)
--- NOTE | 2023-04-03 10:16 | Progress Note - Hospitalist ---
Subjective HPI/CC On Admission Date Seen by Provider: April 03, 2023 Lyndsey Sosa is a 73y F with H stage 4 lung cancer who presented to the ED 03/31 from [facility] after having 2 falls at home. She felt lightheaded and dizzy before each fall and reportedly did not lose consciousness or have any shaking. She hit her nose, head, back of head. After the first fall her right arm went numb and she felt like she was not able to use it. This resolved within a few minutes and then she was able to stand up. She had been on her way to the bathroom to have a BM so she was incontinent of BM during fall because she "could not hold it". She next fell trying to get in the shower. She was recently hospitalized here for 5 days, discharged on 03/22, for a UTI and finished her antibiotics 3 days ago. She has not been able to get chemo for the past few months due to being in and out of the hospital for other issues. Today she states her shoulders are sore and she has a sore throat today. Is concerned about not receiving xanax. Notes having a PET scan Sunday through cancer center and had diarrhea after receiving contrast. Patient denies anything out of the ordinary prior to falls, no changes in diet, activity level, breathing, cold like symptoms, urinary symptoms. Her home health aid was last in home Sunday and did not have any concerns about the patient at that time. Today it is also noted she has a rash on her back. Patient denies pain or irr itation, she has noted it in the shower previously. Subjective/Events-last exam Pt reports doing ok today. No complaints. Awaiting oncology and radiation oncology eval. Focused Exam Lactate Level 03/31/23 22:24: Lactic Acid Level 1.07 Time of Focused Exam: 00:35 Objective Exam Vital Signs Vital Signs Date Time Temp Pulse Resp B/P (MAP) Pulse Ox O2 Delivery O2 Flow Rate FiO2 04/03/23 08:19 94 Nasal Cannula 2.00 04/03/23 08:00 36.4 04/03/23 08:00 93 132/85 (101) 04/03/23 05:00 20 Capillary Refill : Less Than 3 Seconds General Appearance: No Apparent Distress, Cachetic Respiratory: Lungs Clear, No Accessory Muscle Use Cardiovascular: Regular Rate, Rhythm, No Murmur Neurologic/Psychiatric: Alert, Oriented x3 Results/Procedures Lab Laboratory Tests 04/03/23 05:15 Patient resulted labs reviewed. Imaging: Reviewed Imaging Films, Reviewed Imaging Report Assessment/Plan Assessment and Plan Assess & Plan/Chief Complaint Head injury post fall Cerebral edema Lung cancer likely with metastasis to brain End Stage COPD Acute on Chronic Hypoxic Respiratory Failure CT head with cerebral edema and possible underlying neoplasm left parietal region Continue steroids for cerebral edema- doing well MRI confirmed 0.8cm mass- radiation oncology consulted Oncology consulted, dariel Hollins for seizure prophylaxis Palliative care consulted On home oxygen HTN HLD GERD BP well controlled, trend Continue home metoprolol No acute needs Nasal fracture Pain control Debility PT/OT DVT ppx: lovenox Critical Care Critically Ill Patient RONEN PÉREZ MD April 03, 2023 10:16
--- NOTE | 2023-04-03 10:51 | Consultation ---
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 She in under oncologic care of [facility] med onc Dr. Marroquin. Treatment has been immunotherapy with Opdivo, but not for a while per pt and sister, Madhuri, due to numerous hospitalization over the past several months (most recently discharged on 03/22 after treatment for UTI). On 03/31/23 she was brought to [facility] ER via EMS after sustaining two falls at home. She reports becoming dizzy before each fall and was incontinent of stool both times. She denied any shaking. She hit her nose, forehead and back of head on the right. After the first fall she states her right arm went numb and she was unable to use it to dial her phone. This resolved after a few minutes. She was able to stand and walk to the bathroom where she fell trying to get in the shower. -CT head/maxillofacial/cervical spine noted a large focus of low attenuation in posterior and superior left parietal lobe consistent with edema. Underlying mass is likely. Negative for midline shift or intracranial hemorrhage. Mild age- indeterminate deformity of distal nasal bone. Otherwise no acute facial fracture identified. No evidence of acute fracture of cervical spine. Severe interstitial lung disease with honeycombing fibrosis. -Admitted to ICU. Started on decadron and Keppra. MRI ordered. -04/02/23 MRI brain: Identified a 0.8 cm ring-enhancing lesion within the left posterior frontal lobe in the precentral gyrus with high internal diffusion restriction concerning for abscess. Significant surrounding vasogenic edema with mass effect on the cortical sulci. No midline shift. No other lesions identified. The differential diagnosis would include metastatic lesion, neoplasm, or demyelination. Mild chronic small vessel ischemic disease. 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 A radiation oncology consult was requested for evaluation and consideration of treatment. Allergies and Home Medications Allergies Coded Allergies: fentanyl (Verified Allergy, Intermediate, 09/03/22) hallucinations codeine (Verified Allergy, Unknown, ITCH/HIVES, 09/03/22) Patient Home Medication List Home Medication List Reviewed: Yes Albuterol Sulfate (Ventolin Hfa) 1 Puff Puff, 2 PUFF INH Q4H PRN for SHORTNESS OF BREATH, (Reported) Entered as Reported by: KALPESH REYES on 01/18/23 1021 Last Action: Reviewed Amlodipine Besylate (Amlodipine Besylate) 5 Mg Tablet, 5 MG PO DAILY, (Reported) Entered as Reported by: KALPESH REYES on 01/18/23 1017 Last Action: Reviewed Cyanocobalamin (Vitamin B-12) (Vitamin B-12) 500 Mcg Tablet, 500 MCG PO DAILY, (Reported) Entered as Reported by: KALPESH REYES on 01/18/23 1017 Last Action: Reviewed Docusate Sodium (Docusate Sodium) 100 Mg Capsule, 100 MG PO BID PRN for CONSTIPATION-1ST LINE, (Reported) Entered as Reported by: KALPESH REYES on 09/12/22 1125 Last Action: Reviewed Fluticasone/Umeclidin/Vilanter (Trelegy Ellipta 100-62.5-25) 100-62.5 Blst.w.dev, 1 EACH IH 1200, (Reported) Entered as Reported by: BON KNOWLES on 08/23/22 1526 Last Action: Reviewed Folic Acid (Folic Acid) 1 Mg Tablet, 1 MG PO 1200, (Reported) Entered as Reported by: CHRISTIAN MUSE on 09/04/22 1331 Last Action: Reviewed Hydroxyzine Pamoate (Hydroxyzine Pamoate) 25 Mg Capsule, 25-50 MG PO BID PRN for ANXIETY, (Reported) Entered as Reported by: KALPESH REYES on 04/02/23 1119 Last Action: Continued Ipratropium/Albuterol Sulfate (Iprat-Albut 0.5-3(2.5) mg/3 ml) 0.5 Mg-3 Mg (2.5 Mg Base)/3 Ml Ampul.neb, 3 ML NEB Q4H PRN for SHORTNESS OF BREATH, (Reported) Entered as Reported by: KALPESH REYES on 09/12/22 1125 Last Action: Reviewed Lisinopril (Lisinopril) 40 Mg Tablet, 20 MG PO DAILY, (Reported) Entered as Reported by: CHRISTIAN MUSE on 09/04/22 1331 Last Action: Reviewed Metoprolol Tartrate (Metoprolol Tartrate) 100 Mg Tablet, 100 MG PO BID, (Reported) Entered as Reported by: BON KNOWLES on 08/23/22 1526 Last Action: Reviewed Morphine Sulfate (Morphine Sulfate ER) 15 Mg Tablet.er, 15 MG PO Q8H, (Reported) Entered as Reported by: KALPESH REYES on 01/18/23 1017 Last Action: Continued Multivit-Minerals/Folic Acid (Multivitamin Gummies) 200 Mcg Tab.chew, 1 EA PO DAILY, (Reported) Entered as Reported by: KALPESH REYES on 01/18/23 1017 Last Action: Reviewed Oxycodone HCl (Oxycodone HCl) 5 Mg Tablet, 5 MG PO Q4H PRN for PAIN-SEVERE (8- 10), (Reported) Entered as Reported by: CHRISTIAN MUSE on 09/04/22 1329 Last Action: Reviewed Pantoprazole Sodium (Pantoprazole Sodium) 40 Mg Tablet.dr, 40 MG PO DAILY, (Reported) Entered as Reported by: KALPESH REYES on 09/12/22 1125 Last Action: Reviewed Promethazine HCl (Promethazine Tablet) 25 Mg Tablet, 25 MG PO Q6H PRN for NAUSEA/VOMITING-2ND LINE, (Reported) Entered as Reported by: KALPESH REYES on 01/18/23 1017 Last Action: Reviewed Rosuvastatin Calcium (Rosuvastatin Calcium) 20 Mg Tablet, 20 MG PO HS, (Reported) Entered as Reported by: KALPESH REYES on 08/03/22 1603 Last Action: Reviewed Discontinued Medications Alprazolam (Alprazolam) 0.5 Mg Tablet, 0.5 MG PO TID PRN for ANXIETY, (Reported) Discontinued Reason: No Longer Taking Entered as Reported by: KALPESH REYES on 03/19/23 1029 Last Action: Discontinued Amoxicillin/Potassium Clav (Amox Tr-K Clv 875-125 mg Tab) 875 Mg-125 Mg Tablet, 875 MG PO BID WITH MEALS Discontinued Reason: Duplicate Order Prescribed by: RONEN PÉREZ on 03/22/23 1026 Last Action: Discontinued Prednisone (Prednisone) 10 Mg Tab.ds.pk, 10 MG PO DAILY Discontinued Reason: No Longer Taking Prescribed by: RONEN PÉREZ on 03/22/23 1026 Last Action: Discontinued Past Izjledt-Kpeufa-Vgwxuh Hx Patient Social History Tobacco Use?: No Tobacco type used: Cigarettes Smoking Status: Former Smoker Use of E-Cig and/or Vaping dev: No Substance use?: No Alcohol Use?: No Pt feels they are or have been: No Immunizations Up To Date Tetanus Booster (TDap): Unknown Influenza Vaccine Up-to-Date: No; Not Current First/Initial COVID19 Vaccinat: 12/12/2020 [place] Second COVID19 Vaccination Noe: 01/07/2021 [place] Third COVID19 Vaccination Date: 12/01/21 [place] 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: [employer] Seasonal Allergies Seasonal Allergies: No Past Medical History Surgery/Hospitalization HX: COPD, CA LUNG W METS Surgeries: Yes (port, skin cancer resection) Abdominal, Hysterectomy Respiratory: Yes (Lung cancer) COPD Currently Using CPAP: No Currently Using BIPAP: No Cardiac: Yes 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, 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, Menopausal Genitourinary: Yes (NEPHROSTOMY TUBE-KIDNEY STRETCHED) Kidney Stones, UTI-Chronic Gastrointestinal: No Musculoskeletal: Yes Chronic Back Pain Endocrine: No HEENT: No Cancer: Yes (Gynecologic) Lung Did You Recieve Any Treatments: Yes What Type of Treatment Did You: Chemotherapy Psychosocial: Yes Anxiety Integumentary: No Blood Disorders: No Family Medical History No Pertinent Family Hx Review of Systems-General Constitutional: weakness Respiratory: short of breath, other (on O2 per nasal cannula, reports can not go without oxygen) Psychiatric/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: Weakness (weakness of right arm/hand - patient reports has improved since hospitalization) Physical Exam-General Problems Physical Exam Vital Signs Vital Signs - First Documented Capillary Refill : Less Than 3 Seconds General Appearance: WD/WN, no apparent distress, thin, other (elderly female lying in position in ICU bed; sister at bedside in chair) Respiratory: other (On oxygen per nasal cannula) Neurologic/Psychiatric: alert, normal mood/affect, oriented x 3, other (slight weakness of right arm/hand) Assessment/Plan Assessment/Plan Admission Diagnosis/Plan Cerebral edema s/p fall x 2 Metastatic lung cancer diagnosed [address] the care [address] Marroquin Solitary 0.8 cm left posterior frontal lobe brain mass noted on MRI on Decadron and Kejuan antoniora with neurological symptom improvement Patient and sister visited with. Discussed treatment of brain SRS x 1 fraction. Will await discharge from hospital for formal consult and treatment. Patient and sister in agreement with this plan. Reason for Inpatient Admission: Brain mass Copy Copies To 1: RONEN PÉREZ MD Copies To 2: MONISHA MARROQUIN DUANE E MD April 03, 2023 10:51
[2023-04-03] MEDS: ENOXAPARIN 40 MG/0.4 ML (LOVENOX) SYR SQ SCH (11:25)
[2023-04-03] MEDS: LACTOBACILLUS ACIDOPHILUS (PROBIOTIC) CAPSULE PO SCH ×2 (14:24→18:09)
[2023-04-03 15:21] VITALS: BP 123/66
[2023-04-03 19:56] VITALS: BP 134/76
--- NOTE | 2023-04-03 20:05 | CONSULTATION REPORT ---
DATE OF SERVICE: 04/03/2023 PHYSICIAN REQUESTING CONSULTATION: Gabrielle Linder. PRIMARY PHYSICIAN: Oscar Garnett MD The patient is admitted to room 423. 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 Treatment stopped approximately 3 months ago because of hospitalization for COPD and slow recovery. 1. Admitted with dizziness and history of fall at home. Evaluation at the Emergency Room with left cerebral mass with significant surrounding edema, clinically consistent with metastatic lung cancer. 2. Deconditioning and generalized weakness. 3. Chronic obstructive pulmonary disease, oxygen requiring. RECOMMENDATIONS: 1. Continue dexamethasone every 4 hours as you are doing. May reduce this to every 8 hours starting tomorrow. 2. Agree with radiation oncology consultation. The patient will need either stereotactic radiation to the solitary brain lesion or palliative whole brain radiation therapy. 3. Obtain physical and occupational therapy consult for strengthening and ambulation. 4. Her most recent PET/CT scan done on 03/26/2023 showed previously seen radiotracer avid bilateral lung masses, mediastinal and hilar lymphadenopathy near completely resolved. Improved bilateral adrenal metastasis. Improved radiotracer avid mesenteric and subcutaneous soft tissue metastasis. Much improved bony metastasis. There are no new areas of PET avid disease noted. 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 She was initially treated with carboplatin, Alimta and Keytruda regimen for 3 cycles with a significant response. Treatment was then changed to single agent Keytruda because of side effects and continued until 12/2022. She has required two hospitalizations for pneumonia and UTI since then and has not resumed the treatments. She was brought to the emergency room with history of dizziness and fall at home. Evaluation in the emergency room showed a left cerebral edema/mass. MRI obtained the next day showed a 0.8 cm lesion in the posterior frontal lobe with surrounding edema consistent with metastatic disease. Medical oncology consultation was requested for concurrent care. PAST MEDICAL HISTORY: Significant for COPD, which is oxygen dependent. Remote history of lymphoma of the stomach that was treated with no evidence of disease. Cervical cancer at 21 years of age. 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. PAST SURGICAL HISTORY: Prior surgeries include a hysterectomy at age 21, carcinoma of the labia in 1999, lymphoma of the stomach requiring chemotherapy. Exploratory laparotomy with resection of jejunum and ileum due to bowel perforation. FAMILY HISTORY: Brother with prostate cancer, sister with diabetes mellitus. SOCIAL HISTORY: The patient is , lives in [place], [place] since 12/2021. Her sister who lives in [place] is her primary caregiver. She has an adult daughter who lives in [place]. 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 She has more than 75-[id number] history of tobacco use and is trying to quit completely. She is still smoking a few cigarettes daily. No alcohol or recreational drug use. REVIEW OF SYSTEMS: She complained of generalized weakness, which is limiting her activity level. She has significant dyspnea on exertion and is on oxygen around the clock. She denied any new bony aches or pains. She complained of dizziness, which is slightly better since the admission. She is still hesitant to get up or ambulate because of weakness and fear of fall. No chest pain, palpitations, orthopnea, or PND. Appetite is fair. No diarrhea, constipation, hematochezia or melena. She denied any urinary symptoms, but has an indwelling Vo catheter. PHYSICAL EXAMINATION: GENERAL: Today showed an elderly female, thin appearing, awake and answering questions appropriately, anxious. VITAL SIGNS: Temperature was 36.4, pulse rate of 103, respirations 20, blood pressure 123/66 with oxygen saturation of 90% on 2 liters of oxygen by nasal cannula. HEENT: Normocephalic. Extraocular muscles intact. Few ecchymosis and lacerations over her nose. Oral mucosa was moist, without lesions. NECK: Supple, with no JVD. No cervical, supraclavicular or axillary lymphadenopathy palpable. CHEST: Symmetrical with a port. LUNGS: With diminished breath sounds bilaterally without wheezes or rales. CARDIOVASCULAR: Regular in rate and rhythm, borderline tachycardic. No murmurs or gallops heard. ABDOMEN: Soft, nontender with no hepatosplenomegaly or other masses palpable. EXTREMITIES: Showed no edema. NEUROLOGIC: Showed no focal motor deficits. Overall, her motor strength was 4/5 bilaterally. CBC done today showed WBC 12.0, hemoglobin 9.1, platelet count 132,000 with a neutrophil count 10.7, lymphocyte count 0.7 and monocyte count 0.3. Chemistry panel showed relatively normal electrolytes. BUN was 13 and creatinine 0.74 with GFR 87 mL per minute. Nonfasting glucose was 119. Liver function studies were within normal limits. Corrected calcium was 9.5 with albumin level of 3.1. CT scan of the head, C-spine and facial bones done on 04/01/2023 showed no acute intracranial hemorrhage. Low density lesion with mass effect in the left parietal region and an MRI recommended. CT scan of maxillofacial region showed a comminuted fracture of the nasal bone, tip. MRI of the brain done on 04/02/2023 showed a ring-enhancing lesion within the left frontal lobe measuring 0.8 cm with central diffusion restriction surrounding confluent vasogenic edema. 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 The left frontal lobe lesion could be an abscess or metastatic lesion or demyelination. Thank you for me to participate in this patient's care. I will follow the patient with you and make appropriate recommendations. CC: Oscar Garnett MD ? requested, unable to deliver Job ID: [id number] DocumentID: [id number] Dictated Date: 04/03/2023 19:00:55 Internet Architect Date: 04/03/2023 20:04:00 Dictated By: MONISHA MONTANO MD
[2023-04-03] MEDS: hydrOXYzine (VISTARIL/ATARAX) 25 MG capsule/tablet PO PRN ×2 (21:03→22:59)
[2023-04-04] VITALS (8 sets, daily range): BP systolic 112–161; BP diastolic 62–89
[2023-04-04] MEDS: RT-ALBUTEROL/IPRATROPIUM 3 ML (DUONEB) VIAL INH SCH ×5 (02:08→18:51)
[2023-04-04 05:05] LABS: EOSINOPHILS % (AUTO) 0 % (0-10)
[2023-04-04 05:07] LABS: BASOPHILS % (AUTO) 0 % (0-10); HEMATOCRIT 30 % (35-52); HEMOGLOBIN 9.1 g/dL (11.5-16.0); LYMPHOCYTES # (AUTO) 0.8 10^3/uL (1.0-4.0); LYMPHOCYTES % (AUTO) 7 % (12-44); MEAN CORPUSCULAR HEMOGLOBIN 28 pg (25-34); MEAN CORPUSCULAR HGB CONC 31 g/dL (32-36); MEAN CORPUSCULAR VOLUME 92 fL (80-99); MONOCYTES # (AUTO) 0.5 10^3/uL (0.0-1.0); MONOCYTES % (AUTO) 4 % (0-12); NEUTROPHILS # (AUTO) 10.4 10^3/uL (1.8-7.8); NEUTROPHILS % (AUTO) 86 % (42-75); PLATELET COUNT 141 10^3/uL (130-400)
[2023-04-04 05:24] LABS: ALBUMIN 3.1 GM/DL (3.2-4.5); BILIRUBIN,TOTAL 0.2 MG/DL (0.1-1.0); CALCIUM 9.2 MG/DL (8.5-10.1); CREATININE SERUM 0.87 MG/DL (0.60-1.30); MAGNESIUM 1.9 MG/DL (1.6-2.4); PHOSPHORUS 3.3 MG/DL (2.3-4.7); POTASSIUM 4.3 MMOL/L (3.6-5.0)
[2023-04-04] MEDS: MAGNESIUM 1 GM/100 ML IVPB 100 ML IV SCH ×3 (05:30→06:22)
[2023-04-04] MEDS: POTASSIUM CL 10MEQ/50ML IVPB 50 ML IV SCH (05:30)
[2023-04-04] MEDS: KCL 20 MEQ TAB (K-DUR) PO SCH (05:30)
[2023-04-04] MEDS: morphine ER 15 MG (MS CONTIN) TAB PO SCH ×3 (05:35→21:03)
[2023-04-04] MEDS: LACTOBACILLUS ACIDOPHILUS (PROBIOTIC) CAPSULE PO SCH ×3 (08:21→17:18)
[2023-04-04] MEDS: ALPRAZolam 0.5 MG (XANAX) TAB PO PRN ×3 (08:21→23:12)
--- NOTE | 2023-04-04 11:28 | Progress Note - Hospitalist ---
Subjective HPI/CC On Admission Date Seen by Provider: April 04, 2023 Lyndsey Sosa is a 73y F with H stage 4 lung cancer who presented to the ED 03/31 from [place] after having 2 falls at home. She felt lightheaded and dizzy before each fall and reportedly did not lose consciousness or have any shaking. She hit her nose, head, back of head. After the first fall her right arm went numb and she felt like she was not able to use it. This resolved within a few minutes and then she was able to stand up. She had been on her way to the bathroom to have a BM so she was incontinent of BM during fall because she "could not hold it". She next fell trying to get in the shower. She was recently hospitalized here for 5 days, discharged on 03/22, for a UTI and finished her antibiotics 3 days ago. She has not been able to get chemo for the past few months due to being in and out of the hospital for other issues. Today she states her shoulders are sore and she has a sore throat today. Is concerned about not receiving xanax. Notes having a PET scan Sunday through cancer center and had diarrhea after receiving contrast. Patient denies anything out of the ordinary prior to falls, no changes in diet, activity level, breathing, cold like symptoms, urinary symptoms. Her home health aid was last in home Sunday and did not have any concerns about the patient at that time. Today it is also noted she has a rash on her back. Patient denies pain or irr itation, she has noted it in the shower previously. Subjective/Events-last exam Pt reports doing well today. No complaints. Ready to work with PT today. Hopeful to DC soon so that she can be home to see her daughter on the . Focused Exam Time of Focused Exam: 00:35 Objective Exam Vital Signs Vital Signs Date Time Temp Pulse Resp B/P (MAP) Pulse Ox O2 Delivery O2 Flow Rate FiO2 04/04/23 11:18 97 Nasal Cannula 2.00 04/04/23 08:03 36.2 107 20 121/72 (88) 04/04/23 07:52 28 Capillary Refill : Less Than 3 Seconds General Appearance: No Apparent Distress, Chronically ill, Cachetic Respiratory: Lungs Clear, No Respiratory Distress Cardiovascular: Regular Rate, Rhythm, No Murmur Gastrointestinal: Normal Bowel Sounds, Soft Neurologic/Psychiatric: Alert, Oriented x3 Results/Procedures Lab Laboratory Tests 04/04/23 05:00 Patient resulted labs reviewed. Imaging: Reviewed Imaging Films, Reviewed Imaging Report Assessment/Plan Assessment and Plan Assess & Plan/Chief Complaint Head injury post fall Cerebral edema Lung cancer likely with metastasis to brain End Stage COPD Acute on Chronic Hypoxic Respiratory Failure CT head with cerebral edema and possible underlying neoplasm left parietal region Continue steroids for cerebral edema- doing well- decrease dose of decadron MRI confirmed 0.8cm mass- radiation oncology consulted- planning outpatient radiation treatment Oncology consulted, dariel Hollins for seizure prophylaxis Palliative care consulted On home oxygen HTN HLD GERD BP well controlled, trend Continue home metoprolol No acute needs Nasal fracture Pain control Debility PT/OT DC mak DVT ppx: lovenox Critical Care Critically Ill Patient RONEN PÉREZ MD April 04, 2023 11:28
[2023-04-04] MEDS: ENOXAPARIN 40 MG/0.4 ML (LOVENOX) SYR SQ SCH (11:46)
--- NOTE | 2023-04-04 13:53 | Physical Therapy Daily Note ---
PT Daily Note-Current Subjective Patient lying supine in bed upon PT arrival, agreeable to treatment. Patient rates pain at 0/10 currently. Pain Section J - Health Conditions 1. Rarely or not at all 2. Occasionally 3. Frequently 4. Almost constantly 8. Unable to answer Pain Effect on Sleep: 1 Pain Interference with Therapy: 1 Pain Interference w/Day-to-Day: 1 Mental Status Patient Orientation: Person, Place, Time, Situation Attachments: Oxygen, Vo Catheter Transfers SCALE: Activities may be completed with or without assistive devices. 1-Jbfepetxxr-jcoysil completes the activity by him/herself with no assistance from a helper. 5-Set-up or Clean-up Assistance-helper sets up or cleans up; patient completes activity. [place] assists only prior to or following the activity. 4-Supervision or Touching Assistance-helper provides verbal cues and/or touching/steadying and/or contact guard assistance as patient completes activity . Assistance may be provided throughout the activity or intermittently. 3-Partial/Moderate Assistance-helper does LESS THAN HALF the effort. [place] lifts, holds or supports trunk or limbs, but provides less than half the effort. 2-Substantial/Maximal Assistance-helper does MORE THAN HALF the effort. [place] lifts or holds trunk or limbs and provides more than half the effort. 5-Rlyjyqbbb-zotakr does ALL the effort. Patient does none of the effort to complete the activity. Or, the assistance of 2 or more helpers is required for the patient to complete the activity. If activity was not attempted, code reason: 7-Patient Refused. 9-Not Applicable-not attempted and the patient did not perform the activity before the current illness, exacerbation or injury. 10-Not Attempted due to Environmental Limitations-(lack of equipment, weather restraints, etc.). 88-Not Attempted due to Medical Conditions or Safety Concerns. Roll Left & Right (QC): 6 Sit to Lying (QC): 6 Lying to Sitting/Side of Bed(Q: 6 Sit to Stand (QC): 6 Chair/Kjy-qh-Qjned Xfer(QC): 4 Weight Bearing Right Lower Extremity: Right Full Weight Bearing Left Lower Extremity: Left Full Weight Bearing Gait Training Does the Patient Walk?: Yes Distance: 130' Walk 10 feet (QC): 4 Walk 50 ft with 2 Turns(QC): 4 Walk 150 ft (QC): 4 Gait Persons Needed: 1 Gait Assistive Device: FWW Assessment Current Status: Good Progress Patient tolerated treatment fair. She performs all bed mobility with independence and transfers with SBA to [place]. Patient ambulates 130 feet with FWW, with SBA and verbal cues for posture, safety and conservation of energy. Patient reports feeling fatigued and short of breath on the return to her room. Patient O2 at 78% upon return to room. Patient on 3 L O2 during ambulation. O2 increased to 5 L to return to 93% then returned to 2 L. Nurse notified. PT Group Home Goals Group Home Goals PT Group Home Goals Time Frame: April 14, 2023 Roll Left & Right (QC): 6 Sit to Lying (QC): 6 Lying-Sitting on Side/Bed(QC): 6 Sit to Stand (QC): 6 Chair/Apl-hx-Argrv Xfer(QC): 6 Toilet Transfer (QC): 6 Walk 10 feet (QC): 5 Walk 50ft with 2 Turns (QC): 5 Walk 150 ft (QC): 5 PT Plan Treatment/Plan Treatment Plan: Continue Plan of Care Treatment Plan: Bed Mobility, Education, Functional Activity Andra, Functional Strength, Gait, Safety, Therapeutic Exercise, Transfers Treatment Duration: April 14, 2023 Frequency: 6 times per week Estimated Hrs Per Day: .25 hour per day Patient and/or Family Agrees t: Yes Safety Risks/Education Patient Education: Gait Training, Transfer Techniques Teaching Recipient: Patient Teaching Methods: Demonstration, Discussion Response to Teaching: Verbalize Understanding, Return Demonstration Time Time In: 1020 Time Out: 1035 DATE: April 04, 2023 Total Billed Treatment Time: 15 Total Billed Treatment Visit, LUPE Perez PT April 04, 2023 13:53
--- NOTE | 2023-04-04 15:17 | D/C HH Face to Face Order ---
D/C Face to Face Orders Instructions for Patient Via [facility], Patient Instructions/FollowUp: Please follow up with Dr Jiménez as scheduled for your radiation treatment. Please follow up with Dr Marroquin for further cancer treatment and with Dr Garnett to follow up this hospital stay. Physician to follow Patient: Dr Garnett Discharge Diet for Home: No Restrictions Patient Data-Allergies,Ht & Wt Patient Allergies: Coded Allergies: fentanyl (Verified Allergy, Intermediate, 09/03/22) hallucinations codeine (Verified Allergy, Unknown, ITCH/HIVES, 09/03/22) Home Health Need/Face to Face Date of Face to Face: April 04, 2023 Clinical Findings: Generalized weakness and fatigue, Shortness of breath I have seen Pt [id number]: Yes Discharged To: Home Diagnosis/Conditions: Metastatic lung cancer Patient is Homebound due to: Muscle weakness, Shortness of breath/distress Homebound Status Due to the above stated illness, injury or surgical procedure (medical condition or diagnosis) and associated clinical findings, the patient is homebound because of his/her inability to leave home except with aid of a supportive device and/or person AND leaving the home requires a considerable and taxing effort or is medically contraindicated. Pt req the following assistanc: Aid of another person, Walker Home Health Nursing Orders Home Health Services Order: Nursing Services, Field Instructor-Evaluate & Treat, Physical Therapy-Evaluate & Treat Home Health Infusion Therapy Line Start Date: March 31, 2023 Therapy Orders Therapy Orders: OT (must have SN or PT order), Physical Therapy Therapy Specific Orders: Eval assistive deivces, Gait training, Increase strength/endurance Certify Stmt I certify that this patient is under my care and that I, a nurse practitioner or a physician; a paperhanger assistant working with me, had a face to face encounter that - meets the physician face to face encounter requirements with this patient as dated. RONEN PÉREZ MD April 04, 2023 15:17
[2023-04-05] VITALS (7 sets, daily range): BP systolic 127–176; BP diastolic 73–104
[2023-04-05] MEDS: morphine ER 15 MG (MS CONTIN) TAB PO SCH ×3 (05:15→21:26)
[2023-04-05 05:37] LABS: EOSINOPHILS % (AUTO) 0 % (0-10); HEMATOCRIT 30 % (35-52); LYMPHOCYTES % (AUTO) 7 % (12-44); MEAN CORPUSCULAR VOLUME 91 fL (80-99)
[2023-04-05 05:39] LABS: BASOPHILS % (AUTO) 0 % (0-10); HEMOGLOBIN 9.2 g/dL (11.5-16.0); LYMPHOCYTES # (AUTO) 0.7 10^3/uL (1.0-4.0); MEAN CORPUSCULAR HEMOGLOBIN 28 pg (25-34); MEAN CORPUSCULAR HGB CONC 31 g/dL (32-36); MEAN PLATELET VOLUME 9.7 fL (9.0-12.2); MONOCYTES # (AUTO) 0.3 10^3/uL (0.0-1.0); MONOCYTES % (AUTO) 4 % (0-12); NEUTROPHILS # (AUTO) 8.2 10^3/uL (1.8-7.8); NEUTROPHILS % (AUTO) 84 % (42-75); PLATELET COUNT 136 10^3/uL (130-400); WHITE BLOOD COUNT 9.8 10^3/uL (4.3-11.0)
[2023-04-05 05:54] LABS: BILIRUBIN,TOTAL 0.2 MG/DL (0.1-1.0); CALCIUM 9.1 MG/DL (8.5-10.1); CREATININE SERUM 0.83 MG/DL (0.60-1.30); PHOSPHORUS 3.6 MG/DL (2.3-4.7); POTASSIUM 4.4 MMOL/L (3.6-5.0); TOTAL PROTEIN 4.7 GM/DL (6.4-8.2)
[2023-04-05] MEDS: KCL 20 MEQ TAB (K-DUR) PO SCH (05:56)
[2023-04-05] MEDS: MAGNESIUM 1 GM/100 ML IVPB 100 ML IV SCH (05:56)
[2023-04-05] MEDS: POTASSIUM CL 10MEQ/50ML IVPB 50 ML IV SCH (05:56)
[2023-04-05] MEDS: RT-ALBUTEROL/IPRATROPIUM 3 ML (DUONEB) VIAL INH SCH ×4 (07:08→18:55)
[2023-04-05] MEDS: LACTOBACILLUS ACIDOPHILUS (PROBIOTIC) CAPSULE PO SCH ×3 (09:35→17:52)
--- NOTE | 2023-04-05 10:48 | Physical Therapy Daily Note ---
PT Daily Note-Current Subjective Patient is very agreeable to participate with PT. She reports she is going home tomorrow. Pain Numeric Pain Scale: 0-No Pain Location: No Pain Reported Section J - Health Conditions 1. Rarely or not at all 2. Occasionally 3. Frequently 4. Almost constantly 8. Unable to answer Pain Effect on Sleep: 1 Pain Interference with Therapy: 1 Pain Interference w/Day-to-Day: 1 Mental Status Patient Orientation: Normal For Age Attachments: Oxygen Transfers SCALE: Activities may be completed with or without assistive devices. 0-Xxzuydbgit-wssmcpb completes the activity by him/herself with no assistance from a helper. 5-Set-up or Clean-up Assistance-helper sets up or cleans up; patient completes activity. [place] assists only prior to or following the activity. 4-Supervision or Touching Assistance-helper provides verbal cues and/or touching/steadying and/or contact guard assistance as patient completes activity. Assistance may be provided throughout the activity or intermittently. 3-Partial/Moderate Assistance-helper does LESS THAN HALF the effort. [place] lifts, holds or supports trunk or limbs, but provides less than half the effort. 2-Substantial/Maximal Assistance-helper does MORE THAN HALF the effort. [place] lifts or holds trunk or limbs and provides more than half the effort. 2-Hnwafqsfn-vuklxm does ALL the effort. Patient does none of the effort to complete the activity. Or, the assistance of 2 or more helpers is required for the patient to complete the activity. If activity was not attempted, code reason: 7-Patient Refused. 9-Not Applicable-not attempted and the patient did not perform the activity before the current illness, exacerbation or injury. 10-Not Attempted due to Environmental Limitations-(lack of equipment, weather restraints, etc.). 88-Not Attempted due to Medical Conditions or Safety Concerns. Sit to Lying (QC): 6 Lying to Sitting/Side of Bed(Q: 6 Sit to Stand (QC): 5 Weight Bearing Right Lower Extremity: Right Full Weight Bearing Left Lower Extremity: Left Full Weight Bearing Gait Training Distance: >500' Walk 10 feet (QC): 4 Walk 50 ft with 2 Turns(QC): 4 Walk 150 ft (QC): 4 Gait Assistive Device: FWW assist for O2 tank only Assessment Patient highly motivated with progress and being able to go home tomorrow. Patient encouraged to ambulate with nursing PRN to improve functional endurance. PT Automatic Teller Machine Servicer Goals Automatic Teller Machine Servicer Goals PT Automatic Teller Machine Servicer Goals Time Frame: April 14, 2023 Roll Left & Right (QC): 6 Sit to Lying (QC): 6 Lying-Sitting on Side/Bed(QC): 6 Sit to Stand (QC): 6 Chair/Oml-on-Vmhnz Xfer(QC): 6 Toilet Transfer (QC): 6 Walk 10 feet (QC): 5 Walk 50ft with 2 Turns (QC): 5 Walk 150 ft (QC): 5 PT Plan Treatment/Plan Treatment Plan: Continue Plan of Care Treatment Plan: Bed Mobility, Education, Functional Activity Andra, Functional Strength, Gait, Safety, Therapeutic Exercise, Transfers Treatment Duration: April 14, 2023 Frequency: 6 times per week Estimated Hrs Per Day: .25 hour per day Patient and/or Family Agrees t: Yes Time Time In: 1015 Time Out: 1026 DATE: April 05, 2023 Total Billed Treatment Time: 11 Total Billed Treatment 1 visit FA 11 min ELISSA VALLE PT April 05, 2023 10:48
[2023-04-05] MEDS: ENOXAPARIN INJECTION 30 MG/0.3 ML SYR SQ SCH (11:19)
[2023-04-05] MEDS: ALPRAZolam 0.5 MG (XANAX) TAB PO PRN ×2 (11:19→19:35)
--- NOTE | 2023-04-05 12:47 | Progress Note - Hospitalist ---
Subjective HPI/CC On Admission Date Seen by Provider: April 05, 2023 Lyndsey Sosa is a 73y F with H stage 4 lung cancer who presented to the ED 03/31 from [facility] after having 2 falls at home. She felt lightheaded and dizzy before each fall and reportedly did not lose consciousness or have any shaking. She hit her nose, head, back of head. After the first fall her right arm went numb and she felt like she was not able to use it. This resolved within a few minutes and then she was able to stand up. She had been on her way to the bathroom to have a BM so she was incontinent of BM during fall because she "could not hold it". She next fell trying to get in the shower. She was recently hospitalized here for 5 days, discharged on 03/22, for a UTI and finished her antibiotics 3 days ago. She has not been able to get chemo for the past few months due to being in and out of the hospital for other issues. Today she states her shoulders are sore and she has a sore throat today. Is concerned about not receiving xanax. Notes having a PET scan Sunday through cancer center and had diarrhea after receiving contrast. Patient denies anything out of the ordinary prior to falls, no changes in diet, activity level, breathing, cold like symptoms, urinary symptoms. Her home health aid was last in home Sunday and did not have any concerns about the patient at that time. Today it is also noted she has a rash on her back. Patient denies pain or irr itation, she has noted it in the shower previously. Subjective/Events-last exam Pt reports feeling ok today but still a little weak. Hopeful to work with PT to continue to work on strength. Focused Exam Time of Focused Exam: 00:35 Objective Exam Vital Signs Vital Signs Date Time Temp Pulse Resp B/P (MAP) Pulse Ox O2 Delivery O2 Flow Rate FiO2 04/05/23 11:24 36.6 98 20 139/86 (103) 95 Nasal Cannula 2.00 04/04/23 07:52 28 Capillary Refill : Less Than 3 Seconds General Appearance: No Apparent Distress, Chronically ill, Cachetic Respiratory: Lungs Clear Cardiovascular: Regular Rate, Rhythm Neurologic/Psychiatric: Alert, Oriented x3 Results/Procedures Lab Laboratory Tests 04/05/23 05:17 Patient resulted labs reviewed. Imaging: Reviewed Imaging Films, Reviewed Imaging Report Assessment/Plan Assessment and Plan Assess & Plan/Chief Complaint Head injury post fall Cerebral edema Lung cancer likely with metastasis to brain End Stage COPD Acute on Chronic Hypoxic Respiratory Failure CT head with cerebral edema and possible underlying neoplasm left parietal region Continue steroids MRI confirmed 0.8cm mass- radiation oncology consulted- planning outpatient radiation treatment Oncology consulted, appreciate elodia Hollins for seizure prophylaxis Palliative care consulted On home oxygen HTN HLD GERD BP well controlled, trend Continue home metoprolol No acute needs Nasal fracture Pain control Debility PT/OT DVT ppx: lovenox Critical Care Critically Ill Patient RONEN PÉREZ MD April 05, 2023 12:47
[2023-04-05] MEDS ORDERED: LEVE10006 PO (13:39)
[2023-04-05] MEDS ORDERED: DEXA4TAB PO (13:39)
[2023-04-05] MEDS ORDERED: amLODIPine 5 MG (NORVASC) TAB PO NR (18:00)
[2023-04-05] MEDS ORDERED: CALCIUM CARBONATE 500 MG (TUMS) TAB.CHEW PO PRN (22:45)
[2023-04-06 03:31] VITALS: BP 138/88
[2023-04-06] MEDS: morphine ER 15 MG (MS CONTIN) TAB PO SCH (05:17)
[2023-04-06 05:45] LABS: BASOPHILS % (AUTO) 0 % (0-10); EOSINOPHILS % (AUTO) 0 % (0-10); HEMATOCRIT 32 % (35-52); HEMOGLOBIN 9.8 g/dL (11.5-16.0); LYMPHOCYTES # (AUTO) 0.9 10^3/uL (1.0-4.0); LYMPHOCYTES % (AUTO) 8 % (12-44); MEAN CORPUSCULAR HEMOGLOBIN 28 pg (25-34); MEAN CORPUSCULAR HGB CONC 31 g/dL (32-36); MEAN CORPUSCULAR VOLUME 91 fL (80-99); MEAN PLATELET VOLUME 9.7 fL (9.0-12.2); MONOCYTES # (AUTO) 0.4 10^3/uL (0.0-1.0); MONOCYTES % (AUTO) 4 % (0-12); NEUTROPHILS # (AUTO) 9.3 10^3/uL (1.8-7.8); NEUTROPHILS % (AUTO) 81 % (42-75); PLATELET COUNT 154 10^3/uL (130-400); WHITE BLOOD COUNT 11.5 10^3/uL (4.3-11.0)
[2023-04-06 06:03] LABS: ALBUMIN 3.1 GM/DL (3.2-4.5); BILIRUBIN,TOTAL 0.2 MG/DL (0.1-1.0); CALCIUM 9.5 MG/DL (8.5-10.1); CREATININE SERUM 0.87 MG/DL (0.60-1.30); MAGNESIUM 1.9 MG/DL (1.6-2.4); PHOSPHORUS 4.3 MG/DL (2.3-4.7); POTASSIUM 4.5 MMOL/L (3.6-5.0)
[2023-04-06] MEDS: KCL 20 MEQ TAB (K-DUR) PO SCH (06:09)
[2023-04-06] MEDS: POTASSIUM CL 10MEQ/50ML IVPB 50 ML IV SCH (06:09)
[2023-04-06] MEDS: MAGNESIUM 1 GM/100 ML IVPB 100 ML IV SCH ×2 (06:09→06:22)
[2023-04-06] MEDS: RT-ALBUTEROL/IPRATROPIUM 3 ML (DUONEB) VIAL INH SCH ×3 (06:48→11:03)
[2023-04-06] MEDS: LACTOBACILLUS ACIDOPHILUS (PROBIOTIC) CAPSULE PO SCH ×2 (08:48→11:53)
[2023-04-06 08:51] VITALS: BP 130/74
[2023-04-06] MEDS ORDERED: amLODIPine 5 MG (NORVASC) TAB PO SCH (09:00)
--- NOTE | 2023-04-06 10:26 | Discharge Summary ---
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 (9) Nasal fracture Status: Acute Discharge Summary Discharge Physical Exam Allergies: Coded Allergies: fentanyl (Verified Allergy, Intermediate, 09/03/22) hallucinations codeine (Verified Allergy, Unknown, ITCH/HIVES, 09/03/22) Vitals & I&Os Vital Signs Date Time Temp Pulse Resp B/P (MAP) Pulse Ox O2 Delivery O2 Flow Rate FiO2 04/06/23 13:15 36.5 91 18 129/82 94 Nasal Cannula 2.00 04/04/23 07:52 28 General Appearance: Chronically ill, Thin Respiratory: Lungs Clear Cardiovascular: Regular Rate, Rhythm, No Murmur Neurologic/Psychiatric: Alert, Oriented x3 Hospital Course Patient was admitted to the hospital after a fall with an CT of her head revealed a new brain lesion. She has known metastatic lung cancer and MRI confirmed presence of a 0.8 cm likely metastatic lesion. Her oncologist, Dr. Begum, and radiation oncology were consulted. She was treated with Decadron for cerebral edema. Her symptoms improved and she was doing well with physical therapy. She was on her home oxygen. We discussed all of the options including discharging with hospice to continuing chemotherapy and radiation. At this point she would like to continue with chemotherapy as able and with radiation. She is set up to see Dr. Jiménez next week for radiation. She is to see Dr. Begum as already scheduled. I called and updated her primary care physician Dr. Garnett who she will follow-up with as well. She was discharged home in stable and improved condition. Labs (last 24 hrs) Laboratory Tests 04/06/23 05:22: White Blood Count 11.5H, Red Blood Count 3.47L, Hemoglobin 9.8L, Hematocrit 32L, Mean Corpuscular Volume 91, Mean Corpuscular Hemoglobin 28, Mean Corpuscular Hemoglobin Concent 31L, Red Cell Distribution Width 14.8H, Platelet Count 154, Mean Platelet Volume 9.7, Immature Granulocyte % (Auto) 7, Neutrophils (%) (Auto) 81H, Lymphocytes (%) (Auto) 8L, Monocytes (%) (Auto) 4, Eosinophils (%) (Auto) 0, Basophils (%) (Auto) 0, Neutrophils # (Auto) 9.3H, Lymphocytes # (Auto) 0.9L, Monocytes # (Auto) 0.4, Eosinophils # (Auto) 0.0, Basophils # (Auto) 0.0, Immature Granulocyte # (Auto) 0.8H, Sodium Level 139, Potassium Level 4.5, Chloride Level 100, Carbon Dioxide Level 28, Anion Gap 11, Blood Urea Nitrogen 23H, Creatinine 0.87, Estimat Glomerular Filtration Rate 72, BUN/Creatinine Ratio 26, Glucose Level 112H, Calcium Level 9.5, Corrected Calcium 10.2H, Phosphorus Level 4.3, Magnesium Level 1.9, Total Bilirubin 0.2, Aspartate Amino Transf (AST/SGOT) 13, Alanine Aminotransferase (ALT/SGPT) 20, Alkaline Phosphatase 57, Total Protein 5.0L, Albumin 3.1L Microbiology 04/01/23 MRSA Screen - Final, Complete MRSA not isolated 04/01/23 Urine Culture - Final, Complete NO GROWTH 03/31/23 Blood Culture - Preliminary, Resulted No growth Patient resulted labs reviewed. Pending Labs Imaging: Reviewed Imaging Films, Reviewed Imaging Report Discussion & Recommendations Discharge Planning: >30 minutes discharge planning Discharge Home Medications: Active Scripts Active Dexamethasone 4 Mg Tablet 4 Mg PO Q8H Levetiracetam 1,000 Mg Tablet 1,000 Mg PO BID Reported Hydroxyzine Pamoate 25 Mg Capsule 25-50 Mg PO BID PRN TAKES 1 TO 2 (25MG) CAPS Ventolin Hfa (Albuterol Sulfate) 1 Puff Puff 2 Puff INH Q4H PRN Multivitamin Gummies (Multivit-Minerals/Folic Acid) 200 Mcg Tab.chew 1 Ea PO DAILY Vitamin B-12 (Cyanocobalamin (Vitamin B-12)) 500 Mcg Tablet 500 Mcg PO DAILY Morphine Sulfate ER (Morphine Sulfate) 15 Mg Tablet.er 15 Mg PO Q8H Promethazine Tablet (Promethazine HCl) 25 Mg Tablet 25 Mg PO Q6H PRN Docusate Sodium 100 Mg Capsule 100 Mg PO BID PRN Iprat-Albut 0.5-3(2.5) mg/3 ml (Ipratropium/Albuterol Sulfate) 0.5 Mg-3 Mg (2.5 Mg Base)/3 Ml Ampul.neb 3 Ml NEB Q4H PRN Pantoprazole Sodium 40 Mg Tablet.dr 40 Mg PO DAILY Folic Acid 1 Mg Tablet 1 Mg PO 1200 Oxycodone HCl 5 Mg Tablet 5 Mg PO Q4H PRN Trelegy Ellipta 100-62.5-25 (Fluticasone/Umeclidin/Vilanter) 100-62.5 Blst.w.dev 1 Each IH 1200 Rosuvastatin Calcium 20 Mg Tablet 20 Mg PO HS Instructions to patient/family Please see electronic discharge instructions given to patient. Problem Qualifiers (1) Fall: Encounter type: initial encounter Qualified Codes: W19.XXXA - Unspecified fall, initial encounter (2) Closed head injury without loss of consciousness: Encounter type: initial encounter Qualified Codes: S09.90XA - Unspecified injury of head, initial encounter (3) Nasal fracture: Encounter type: initial encounter Fracture type: closed Qualified Codes: S02.2XXA - Fracture of nasal bones, initial encounter for closed fracture RONEN PÉREZ MD April 06, 2023 10:26
[2023-04-06 11:41] VITALS: BP 129/82
[2023-04-06] MEDS: ENOXAPARIN INJECTION 30 MG/0.3 ML SYR SQ SCH (11:53)
[2023-04-06 13:15] VITALS: BP 129/82
== END 2023-04-06 13:15 | disposition home health service (06) | DRG 54 ==
LOC: EDUNIT# 22:04 → ER 22:05 → ICU 04-01 00:35 → 4TH 04-03 14:45
PROVIDERS: ADMIT Internal Medicine; ATTEND Family Medicine
DX: C79.31 Secondary malignant neoplasm of brain (principal); G93.6 Cerebral edema; J96.21 Acute and chronic respiratory failure with hypoxia; C79.51 Secondary malignant neoplasm of bone; C78.00 Secondary malignant neoplasm of unspecified lung; C79.72 Secondary malignant neoplasm of left adrenal gland; C34.90 Malignant neoplasm of unspecified part of unspecified bronchus or lung; N39.0 Urinary tract infection, site not specified; Z66 Do not resuscitate; R64 Cachexia; Z68.1 Body mass index [BMI] 19.9 or less, adult; J43.9 Emphysema, unspecified; S02.2XXA Fracture of nasal bones, initial encounter for closed fracture; Z91.81 History of falling; F17.210 Nicotine dependence, cigarettes, uncomplicated; E78.00 Pure hypercholesterolemia, unspecified; I10 Essential (primary) hypertension; F41.9 Anxiety disorder, unspecified; G89.4 Chronic pain syndrome; R21 Rash and other nonspecific skin eruption; R20.0 Anesthesia of skin; R29.898 Other symptoms and signs involving the musculoskeletal system; Z85.72 Personal history of non-Hodgkin lymphomas; Z85.41 Personal history of malignant neoplasm of cervix uteri; Z79.52 Long term (current) use of systemic steroids; Z79.899 Other long term (current) drug therapy; Z88.5 Allergy status to narcotic agent; W18.30XA Fall on same level, unspecified, initial encounter; Y92.009 Unspecified place in unspecified non-institutional (private) residence as the place of occurrence of the external cause
CPT/HCPCS: 36415; 51701; 51702; 70450; 70486; 70544; 70547; 70553; 71045; 72125; 72170; 80053; 80320; 80329; 82550; 82553; 83605; 83735; 83874; 84100; 85007; 85025; 85027; 85610; 85730; 87040; 87081; 93041; 94640; 94760; 96361; 96374; 96375

== ENCOUNTER → 2023-04-18 | Outpatient (RCR) | payer MEDICARE, MEDICAID ==
[~2023-04-18] MED LIST changes: +HYDR-3781 PO; +LEVE10006 PO
== END | disposition home or self-care (01) ==
LOC: ONC 04-10 10:24
PROVIDERS: ATTEND Radiology Radiation Oncology
DX: Z51.0 Encounter for antineoplastic radiation therapy (principal); C34.90 Malignant neoplasm of unspecified part of unspecified bronchus or lung; I87.2 Venous insufficiency (chronic) (peripheral)
CPT/HCPCS: 77300; 77301; 77334; 77338; 77370; 77372; 77470; 99205

== ENCOUNTER 2023-05-18 16:06 | Inpatient (IN) | payer MEDICARE, MEDICAID ==
[~2023-05-18] VITALS: Ht 147 cm; Wt 49.6 kg
[2023-05-18] MEDS ORDERED: NS IV 1000 ML 1,000 ML IV ONE (16:15)
--- NOTE | 2023-05-18 16:39 | ED 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 Problem ---
General Chief Complaint: 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 Problems Stated Complaint: SLURRED SPEECH/POSS STROKE Nursing Triage Note: ARRIVED VIA EMS FROM HOME WITH STROKE LIKE SYMPTOMS TAHT STARTED AT 1540 WITH SLURRED SPEECH. HX OF LUNG CA. HAS TAKEN HER MORPHINE HYDROCODONE AT 1500. BLOOD SURGAR 323 ACCORDING TO EMS. Source: patient Exam Limitations: no limitations History of Present Illness Date Seen by Provider: May 18, 2023 Time Seen by Provider: 16:08 Initial Comments Here by EMS with concerns of strokelike symptoms that started at 1540 today with slurred speech and facial droop. She did take her pain medicines at 1500. Blood sugar was noted to be 323 according to EMS and EMS did report ketones on their stick. 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 Patient reports that she did have radiation therapy on brain tumor within the last 2 months. She is currently on Decadron. She is currently answering questions and denies pain other than her typical pain. Denies nausea or vomiting. Reports eating and drinking okay. Denies fever. Timing/Duration: 1/2 hour Severity: moderate Associated Symptoms: confusion; No fever/chills, No loss of consciousness, No nausea/vomiting; slurred speech Allergies and Home Medications Allergies Coded Allergies: fentanyl (Verified Allergy, Intermediate, 09/03/22) hallucinations codeine (Verified Allergy, Unknown, ITCH/HIVES, 09/03/22) Patient Home Medication List Home Medication List Reviewed: Yes Albuterol Sulfate (Ventolin Hfa) 1 Puff Puff, 2 PUFF INH Q4H PRN for SHORTNESS O F BREATH, (Reported) Entered as Reported by: KALPESH REYES on 01/18/23 1021 Cyanocobalamin (Vitamin B-12) (Vitamin B-12) 500 Mcg Tablet, 500 MCG PO DAILY, (Reported) Entered as Reported by: KALPESH REYES on 01/18/23 1017 Dexamethasone (Dexamethasone) 4 Mg Tablet, 4 MG PO Q8H Prescribed by: RONEN LINDER on 04/05/23 1339 Docusate Sodium (Docusate Sodium) 100 Mg Capsule, 100 MG PO BID PRN for CONSTIPATION-1ST LINE, (Reported) Entered as Reported by: KALPESH REYES on 09/12/22 1125 Fluticasone/Umeclidin/Vilanter (Trelegy Ellipta 100-62.5-25) 100-62.5 Blst.w.dev, 1 EACH IH 1200, (Reported) Entered as Reported by: BON KNOWLES on 08/23/22 1526 Folic Acid (Folic Acid) 1 Mg Tablet, 1 MG PO 1200, (Reported) Entered as Reported by: CHRISTIAN MUSE on 09/04/22 1331 Hydroxyzine Pamoate (Hydroxyzine Pamoate) 25 Mg Capsule, 25-50 MG PO BID PRN for ANXIETY, (Reported) Entered as Reported by: KALPESH REYES on 04/02/23 1119 Ipratropium/Albuterol Sulfate (Iprat-Albut 0.5-3(2.5) mg/3 ml) 0.5 Mg-3 Mg (2.5 Mg Base)/3 Ml Ampul.neb, 3 ML NEB Q4H PRN for SHORTNESS OF BREATH, (Reported) Entered as Reported by: KALPESH REYES on 09/12/22 1125 Levetiracetam (Levetiracetam) 1,000 Mg Tablet, 1,000 MG PO BID Prescribed by: RONEN LINDER on 04/05/23 1339 Morphine Sulfate (Morphine Sulfate ER) 15 Mg Tablet.er, 15 MG PO Q8H, (Reported) Entered as Reported by: KALPESH REYES on 01/18/23 1017 Multivit-Minerals/Folic Acid (Multivitamin Gummies) 200 Mcg Tab.chew, 1 EA PO DAILY, (Reported) Entered as Reported by: KALPESH REYES on 01/18/23 1017 Oxycodone HCl (Oxycodone HCl) 5 Mg Tablet, 5 MG PO Q4H PRN for PAIN-SEVERE (8- 10), (Reported) Entered as Reported by: CHRISTIAN MUSE on 09/04/22 1329 Pantoprazole Sodium (Pantoprazole Sodium) 40 Mg Tablet.dr, 40 MG PO DAILY, (Reported) Entered as Reported by: KALPESH REYES on 09/12/22 1125 Promethazine HCl (Promethazine Tablet) 25 Mg Tablet, 25 MG PO Q6H PRN for NAUSEA/VOMITING-2ND LINE, (Reported) Entered as Reported by: KALPESH REYES on 01/18/23 1017 Rosuvastatin Calcium (Rosuvastatin Calcium) 20 Mg Tablet, 20 MG PO HS, (Reported) Entered as Reported by: KALPESH REYES on 08/03/22 1603 Review of Systems Review of Systems Constitutional: see HPI Eyes: No Symptoms Reported Ears, Nose, Mouth, Throat: denies mouth pain Respiratory: No cough; short of breath (Chronic) Cardiovascular: No chest pain; edema (Face) Gastrointestinal: No nausea, No vomiting Genitourinary: No pain Musculoskeletal: No back pain; muscle pain Skin: No change in color, No lesions Psychiatric/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: Cognitive Dysfunction, Weakness Past Wlzrrre-Gjtuin-Ejvmtu Hx Patient Social History Tobacco Use?: No Substance use?: No Alcohol Use?: No Immunizations Up To Date Tetanus Booster (TDap): Unknown First/Initial COVID19 Vaccinat: 12/12/2020 [employer] It - Smartphone RFID Second COVID19 Vaccination Noe: 01/07/2021 U Gro[employer] It - Smartphone RFID Third COVID19 Vaccination Date: 12/01/21 U Grok It - Smartphone RFID Seasonal Allergies Seasonal Allergies: No Past Medical History Surgery/Hospitalization HX: COPD, CA LUNG W METS Surgeries: Yes (port, skin cancer resection) Abdominal, Hysterectomy Respiratory: Yes (Lung cancer) COPD Currently Using CPAP: No Currently Using BIPAP: No Cardiac: Yes 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, 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, Menopausal Genitourinary: Yes (NEPHROSTOMY TUBE-KIDNEY STRETCHED) Kidney Stones, UTI-Chronic Gastrointestinal: No Musculoskeletal: Yes Chronic Back Pain Endocrine: No HEENT: No Cancer: Yes (Gynecologic) Lung Did You Recieve Any Treatments: Yes What Type of Treatment Did You: Chemotherapy Psychosocial: Yes Anxiety Integumentary: No Blood Disorders: No Family Medical History Reviewed Nursing Family Hx No Pertinent Family Hx Physical Exam Vital Signs Vital Signs - First Documented 05/18/23 16:07 Temp 37.1 Pulse 85 Resp 16 B/P (MAP) 130/80 (97) Pulse Ox 96 O2 Delivery Room Air Capillary Refill : Less Than 3 Seconds Height, Weight, BMI Height: '" Weight: lbs. oz. kg; 20.00 BMI Method: General Appearance: WD/WN, no apparent distress HEENT: PERRL/EOMI, other (Mucous membranes dry. 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, alert [place] Nerves: normal hearing, normal speech, PERRL Coordination/Gait: other (Able to accomplish mknqbd-ra-vgwh and mraq-bg-fxlg although slightly slowed) Motor/Sensory: no motor deficit, no sensory deficit Skin: normal color, warm/dry Focused Exam Lactate Level 05/18/23 16:25: Lactic Acid Level 2.17*H Lactic Acid Level Laboratory Tests Test 05/18/23 16:25 Lactic Acid Level 2.17 MMOL/L (0.50-2.00) *H Progress/Results/Core Measures Results/Orders Lab Results Laboratory Tests Test 05/18/23 16:25 05/18/23 16:28 05/18/23 16:36 Range/Units White Blood Count 10.9 4.3-11.0 10^3/uL Red Blood Count 3.52 L 3.80-5.11 10^6/uL Hemoglobin 9.8 L 11.5-16.0 g/dL Hematocrit 32 L 35-52 % Mean Corpuscular Volume 90 80-99 fL Mean Corpuscular Hemoglobin 28 25-34 pg Mean Corpuscular Hemoglobin Concent 31 L 32-36 g/dL Red Cell Distribution Width 17.2 H 10.0-14.5 % Platelet Count 94 L 130-400 10^3/uL Mean Platelet Volume 8.6 L 9.0-12.2 fL Immature Granulocyte % (Auto) 9 % Neutrophils (%) (Auto) 71 42-75 % Lymphocytes (%) (Auto) 15 12-44 % Monocytes (%) (Auto) 4 0-12 % Eosinophils (%) (Auto) 0 0-10 % Basophils (%) (Auto) 0 0-10 % Neutrophils # (Auto) 7.7 1.8-7.8 10^3/uL Lymphocytes # (Auto) 1.7 1.0-4.0 10^3/uL Monocytes # (Auto) 0.5 0.0-1.0 10^3/uL Eosinophils # (Auto) 0.0 0.0-0.3 10^3/uL Basophils # (Auto) 0.0 0.0-0.1 10^3/uL Immature Granulocyte # (Auto) 1.0 H 0.0-0.1 10^3/uL Percent Immature Platelet Fraction 1.5 0.0-7.6 % Prothrombin Time 13.2 12.2-14.7 SEC INR Comment 1.0 0.8-1.4 Activated Partial Thromboplast Time 23 L 24-35 SEC D-Dimer 2.66 H 0.00-0.49 UG/ML Sodium Level 138 135-145 MMOL/L Potassium Level 3.7 3.6-5.0 MMOL/L Chloride Level 105 98-107 MMOL/L Carbon Dioxide Level 20 L 21-32 MMOL/L Anion Gap 13 5-14 MMOL/L Blood Urea Nitrogen 19 H 7-18 MG/DL Creatinine 1.05 0.60-1.30 MG/DL Estimat Glomerular Filtration Rate 57 BUN/Creatinine Ratio 18 Glucose Level 219 H 70-105 MG/DL Lactic Acid Level 2.17 *H 0.50-2.00 MMOL/L Calcium Level 8.7 8.5-10.1 MG/DL Corrected Calcium 8.9 8.5-10.1 MG/DL Total Bilirubin 0.4 0.1-1.0 MG/DL Aspartate Amino Transf (AST/SGOT) 13 5-34 U/L Alanine Aminotransferase (ALT/SGPT) 19 0-55 U/L Alkaline Phosphatase 88 40-136 U/L Troponin I 0.115 H <0.028 NG/ML Total Protein 5.9 L 6.4-8.2 GM/DL Albumin 3.7 3.2-4.5 GM/DL Glucometer 217 H 70-110 MG/DL Urine Color YELLOW Urine Clarity CLOUDY Urine pH 6.0 5-9 Urine Specific [place] 1.015 L 1.016-1.022 Urine Protein TRACE H NEGATIVE Urine Glucose (UA) NEGATIVE NEGATIVE Urine Ketones NEGATIVE NEGATIVE Urine Nitrite NEGATIVE NEGATIVE Urine Bilirubin NEGATIVE NEGATIVE Urine Urobilinogen 0.2 < = 1.0 MG/DL Urine Leukocyte Esterase 3+ H NEGATIVE Urine RBC (Auto) TRACE-I H NEGATIVE Urine RBC 2-5 H /HPF Urine WBC 50-100 H /HPF Urine Squamous Epithelial Cells 5-10 /HPF Urine Crystals NONE /LPF Urine Bacteria LARGE H /HPF Urine Casts PRESENT /LPF Urine Hyaline Casts RARE /LPF Urine Mucus NEGATIVE /LPF Urine Culture Indicated YES My Orders Orders - JS WALKER MD Cbc With Automated Diff (05/18/23 16:08) Protime With Inr (05/18/23 16:08) Partial Thromboplastin Time (05/18/23 16:08) Comprehensive Metabolic Panel (05/18/23 16:08) Fibrin Degradation Products (05/18/23 16:08) Troponin I Juan (05/18/23 16:08) Chest 1 View, Ap/Pa Only (05/18/23 16:08) Ekg Tracing (05/18/23 16:08) Nothing By Mouth (05/18/23 Dinner) Accucheck Stat ONCE (05/18/23 16:08) Ed Iv/Invasive Line Start (05/18/23 16:08) Ed Iv/Invasive Line Start (05/18/23 16:08) Vital Signs Stroke Patient Q15M (05/18/23 16:08) Ct Head Wo-R/O Stroke (05/18/23 16:08) O2 (05/18/23 16:08) Monitor-Rhythm Ecg Trace Only (05/18/23 16:08) Dysphagia Screening Tool [id number] (05/18/23 16:08) Lipid Panel (05/19/23 06:00) Ns Iv 1000 Ml (Sodium Chloride 0.9%) (05/18/23 16:15) Blood Culture (05/18/23 16:15) Sputum Culture (05/18/23 16:15) Urinalysis (05/18/23 16:15) Urine Culture (05/18/23 16:15) Vital Signs Adult Sepsis Patie Q15M (05/18/23 16:15) Remove Rings In Anticipation O (05/18/23 16:15) Lactic Acid Analyzer (05/18/23 16:15) Urine Culture (05/18/23 16:36) Manual Differential (05/18/23 16:25) Ceftriaxone Iv/Im (Rocephin Iv/Im) (05/18/23 17:14) Code/Resuscitation (05/18/23 17:21) Ed Admission (Communication) (05/18/23 17:21) Medications Given in ED Current Medications Medications Dose Ordered Sig/Ade Route Start Time Stop Time Status Last Admin Dose Admin Sodium Chloride 1,000 ml @ 0 mls/hr Q0M ONCE IV 05/18/23 16:15 05/18/23 16:16 DC 05/18/23 16:39 1,000 MLS/HR Vital Signs/I&O 05/18/23 16:07 Temp 37.1 Pulse 85 Resp 16 B/P (MAP) 130/80 (97) Pulse Ox 96 O2 Delivery Room Air Blood Pressure Mean: 97 Progress Progress Note : Progress Note Seen and evaluated. Stroke protocol initiated including IV via port access, labs including CBC, CMP, troponin, D-dimer and UA with culture, blood cultures and lactic acid, chest x-ray, EKG and CT of head rule out stroke. Patient does have history of brain tumor and would be excluded from tPA due to active tumor in the brain. Stroke scale is 0 which would also be a contraindication for tPA. Normal saline 1 L bolus due to elevated blood sugar and ketones. Monitor patient. Differential diagnosis includes stroke, tumor extension, dehydration, elect rolyte abnormality, medication effect from narcotics 1724: CT of the head shows no obvious intracranial hemorrhage on my interp retation. Chest x-ray does have small nodule/mass in the right base and chronic lung disease but appears improved from previous on my interpretation. CBC shows normal white count and slightly low hemoglobin. Chemistries show elevated blood glucose but normal electrolytes and creatinine as well as LFTs. Troponin is elevated. Lactic acid also noted to be elevated. Coags grossly normal and D- dimer is elevated likely secondary to cancer state. UA does have findings consistent with UTI given elevated white count, leuk esterase and bacteria I did discuss the CT scan of the head with the radiologist and there is question of new lucencies/mass to the right frontal lobe posterior aspect without bleeding. Given patient's urinary tract infection and elevated troponin, admission for observation is indicated. This was discussed with Dr. Linder, hospitalist on-call who accepts patient for admission. We will initiate Rocephin 1 g IV now. She will write orders. Patient request DNR status. I did discuss the case with Dr. Dillon, bat carrier on-call and he will see the patient in consult and request serial troponins which have been ordered by hospitalist team. All findings and concerns including UMass were discussed with the patient and she agrees with admission. Initial ECG Impression Date: May 18, 2023 Initial ECG Impression Time: 16:27 Initial ECG Rate: 85 Initial ECG Rhythm: Normal Sinus Comment Sinus rhythm with normal axis. No evidence of ST elevation ND. Interpreted by me. Diagnostic Imaging Diagonstic Imaging: CT Plain Films/CT/US/NM/MRI: head Comments [facility] [place] [place] NAME: NADIA SCHULTZ [facility] REC#: [id number] PT STATUS: REG ER : 1950 PHYSICIAN: JS WALKER MD ADMIT DATE: 05/18/23/ER Draft Date of Exam:05/18/23 CT HEAD WO-R/O STROKE CLINICAL INDICATION: Patient with slurred speech which started about 1540 hours. Patient has history of lung cancer. EXAM: Axial CT scan of the brain without IV contrast with coronal and sagittal reformatted images. Auto Exposure Controls were utilized during the CT exam to meet ALARA standards for radiation dose reduction. COMPARISON: MRI of the brain with and without contrast dated 04/02/2023. FINDINGS: There is a subtle low-density area involving the high parasagittal posterior left frontal lobe region which may correlate to the area of previously seen enhancing mass with edema on the prior MRI. The previously seen edema has near completely resolved. Stable small area of low-attenuation changes involving the right cerebellar hemisphere. There is a small localized area of loss of miguel-white matter distinction involving the posterior right frontal lobe which may be related to subacute infarct versus a small mass. This is best seen on the axial sequence series 4, image 197 and sagittal reformatted image series 602, image 15. There is no hydrocephalus. Basal cisterns are unremarkable. Extracranial soft tissue, skull, and orbits are unremarkable. Paranasal sinuses and mastoid air cells are clear. IMPRESSION: 1: There is no dense vessel sign. There is no definite evidence of acute cerebral infarct. 2: There is interval development of a small area of loss of miguel-white matter distinction involving the high posterior right frontal lobe which may represent subacute infarct versus a mass. MRI of the brain with and without contrast would better evaluate. 3: There is interval near resolution of the previously seen edema involving the posterior left frontal lobe region with minimal amount remaining. Residual mass in the region cannot be evaluated for on this exam. This would be better evaluated with MRI of the brain with and without IV contrast, if necessary. Results of this report were discussed with Dr. Walker via the telephone on 05/18/2023 at 1655 hours. Dictated on workstation # [id number] Dict: 05/18/23 1649 Trans: 05/18/23 1706 [id number] Interpreted by: VENITA ANDRADE MD Electronically signed by: Anibal Imaging: Xray Plain Films/CT/US/NM/MRI: chest Comments [facility] [place] [place] NAME: NADIA SCHULTZ [facility] REC#: [id number] PT STATUS: REG ER : 1950 PHYSICIAN: JS WALKER MD ADMIT DATE: 05/18/23/ER Draft Date of Exam:05/18/23 CHEST 1 VIEW, AP/PA ONLY INDICATION: Stroke, slurred speech, history of lung cancer. TECHNIQUE: Frontal chest obtained at 04:55 p.m. and compared to 03/31/2023. FINDINGS: Port-A-Cath is unchanged. There is cardiomegaly. There are chronic-appearing increased interstitial markings. There is no pneumothorax or pleural fluid or definite new consolidation. Interstitial infiltrates have improved significantly compared to 03/31/2023. IMPRESSION: Significant improvement in interstitial infiltrates compared to 03/31/2023. There is some mild chronic interstitial prominence which may be due to fibrotic change. There is no new consolidation or pleural fluid. Dictated on workstation # [id number] Dict: 05/18/23 1706 Trans: 05/18/23 1710 [id number] Interpreted by: ELISA LOWERY MD Electronically signed by: Departure Communication (Admissions) Time/Spoke to Admitting Phy: 17:15 Time/Spoke to Consulting Phy: 17:16 Impression Primary Impression: UTI (urinary tract infection) Qualified Codes: N30.00 - Acute cystitis without hematuria Additional Impressions: Elevated troponin Metastatic primary lung cancer Qualified Codes: C34.91 - Malignant neoplasm of unspecified part of right bronchus or lung Disposition: ADMITTED INPATIENT Condition: Critical Admissions Decision to Admit Reason: Admit from ER (General) Decision to Admit/Date: May 18, 2023 Time/Decision to Admit Time: 17:15 Departure-Patient Inst. Referrals: BAIRON HARRIS MD (PCP/Family) Primary Care Physician JS WALKER MD May 18, 2023 16:39
[2023-05-18 16:41] LABS: LYMPHOCYTES # (AUTO) 1.7 10^3/uL (1.0-4.0); NEUTROPHILS % (AUTO) 71 % (42-75)
[2023-05-18 16:43] LABS: BASOPHILS % (AUTO) 0 % (0-10); EOSINOPHILS % (AUTO) 0 % (0-10); HEMATOCRIT 32 % (35-52); HEMOGLOBIN 9.8 g/dL (11.5-16.0); LYMPHOCYTES % (AUTO) 15 % (12-44); MEAN CORPUSCULAR HEMOGLOBIN 28 pg (25-34); MEAN CORPUSCULAR HGB CONC 31 g/dL (32-36); MEAN CORPUSCULAR VOLUME 90 fL (80-99); MEAN PLATELET VOLUME 8.6 fL (9.0-12.2); MONOCYTES # (AUTO) 0.5 10^3/uL (0.0-1.0); MONOCYTES % (AUTO) 4 % (0-12); NEUTROPHILS # (AUTO) 7.7 10^3/uL (1.8-7.8); PLATELET COUNT 94 10^3/uL (130-400); WHITE BLOOD COUNT 10.9 10^3/uL (4.3-11.0)
[2023-05-18 16:43] LABS: BILIRUBIN,URINE NEGATIVE (NEGATIVE); CLARITY,URINE CLOUDY; COLOR,URINE YELLOW; GLUCOSE, URINE (UA) NEGATIVE (NEGATIVE); KETONES,URINE NEGATIVE (NEGATIVE); LEUKOCYTE ESTERASE ,URINE 3+ (NEGATIVE); NITRITE,URINE NEGATIVE (NEGATIVE); PROTEIN,URINE TRACE (NEGATIVE)
[2023-05-18 16:47] LABS: ALBUMIN 3.7 GM/DL (3.2-4.5); POTASSIUM 3.7 MMOL/L (3.6-5.0)
[2023-05-18 16:48] LABS: CALCIUM 8.7 MG/DL (8.5-10.1)
[2023-05-18 16:50] LABS: TOTAL PROTEIN 5.9 GM/DL (6.4-8.2)
[2023-05-18 16:51] LABS: PROTHROMBIN TIME PATIENT 13.2 SEC (12.2-14.7)
[2023-05-18 16:52] LABS: BILIRUBIN,TOTAL 0.4 MG/DL (0.1-1.0)
[2023-05-18 16:53] LABS: CREATININE SERUM 1.05 MG/DL (0.60-1.30)
[2023-05-18 16:53] LABS: BACTERIA,URINE LARGE /HPF; HYALINE CASTS, URINE RARE /LPF; WBC,URINE 50-100 /HPF
[2023-05-18 16:54] LABS: FIBRIN DEGRADATION PRODUCTS 2.66 UG/ML (0.00-0.49)
--- NOTE | 2023-05-18 17:06 | Diagnostic Imaging Report ---
CLINICAL INDICATION: Patient with slurred speech which started about 1540 hours. Patient has history of lung cancer. EXAM: Axial CT scan of the brain without IV contrast with coronal and sagittal reformatted images. Auto Exposure Controls were utilized during the CT exam to meet ALARA standards for radiation dose reduction. COMPARISON: MRI of the brain with and without contrast dated 04/02/2023. FINDINGS: There is a subtle low-density area involving the high parasagittal posterior left frontal lobe region which may correlate to the area of previously seen enhancing mass with edema on the prior MRI. The previously seen edema has near completely resolved. Stable small area of low-attenuation changes involving the right cerebellar hemisphere. There is a small localized area of loss of miguel-white matter distinction involving the posterior right frontal lobe which may be related to subacute infarct versus a small mass. This is best seen on the axial sequence series 4, image 197 and sagittal reformatted image series 602, image 15. There is no hydrocephalus. Basal cisterns are unremarkable. Extracranial soft tissue, skull, and orbits are unremarkable. Paranasal sinuses and mastoid air cells are clear. IMPRESSION: 1: There is no dense vessel sign. There is no definite evidence of acute cerebral infarct. 2: There is interval development of a small area of loss of miguel-white matter distinction involving the high posterior right frontal lobe which may represent subacute infarct versus a mass. MRI of the brain with and without contrast would better evaluate. 3: There is interval near resolution of the previously seen edema involving the posterior left frontal lobe region with minimal amount remaining. Residual mass in the region cannot be evaluated for on this exam. This would be better evaluated with MRI of the brain with and without IV contrast, if necessary. Results of this report were discussed with Dr. Paulino via the telephone on 05/18/2023 at 1655 hours. Dictated by: Dictated on workstation # [id number]
--- NOTE | 2023-05-18 17:10 | Diagnostic Imaging Report ---
INDICATION: Stroke, slurred speech, history of lung cancer. TECHNIQUE: Frontal chest obtained at 04:55 p.m. and compared to 03/31/2023. FINDINGS: Port-A-Cath is unchanged. There is cardiomegaly. There are chronic-appearing increased interstitial markings. There is no pneumothorax or pleural fluid or definite new consolidation. Interstitial infiltrates have improved significantly compared to 03/31/2023. IMPRESSION: Significant improvement in interstitial infiltrates compared to 03/31/2023. There is some mild chronic interstitial prominence which may be due to fibrotic change. There is no new consolidation or pleural fluid. Dictated by: Dictated on workstation # [id number]
[2023-05-18] MEDS ORDERED: cefTRIAXone IV/IM 1,000 MG in NS (IVPB) 50 ML IV STA (17:14)
[2023-05-18 17:28] LABS: ATYPICAL LYMPHOCYTES 1 %; BAND NEUTROPHILS 9 %; LYMPHOCYTES % (MANUAL) 15 %; METAMYELOCYTES % 3 %; MONOCYTES % (MANUAL) 4 %; MYELOCYTES % 3 %; NEUTROPHILS % (MANUAL) 65 %; NUCLEATED RED BLOOD CELLS 1; PLATELET ESTIMATE OCC LARGE PLT
[2023-05-18 17:29] LABS: ANISOCYTOSIS MODERATE; POLYCHROMASIA SLIGHT; SCHISTOCYTES SLIGHT; TEAR DROP CELLS SLIGHT
[2023-05-18 19:22] VITALS: BP 137/85
[2023-05-18] MEDS: NS IV 1000 ML 1,000 ML IV SCH (19:50)
[2023-05-18] MEDS ORDERED: BISACODYL 10 MG SUPP (DULCOLAX) PR PRN (20:15)
[2023-05-18] MEDS ORDERED: cefTRIAXone IV/IM 1,000 MG in NS (IVPB) 50 ML IV SCH (20:15)
[2023-05-18] MEDS ORDERED: ACETAMINOPHEN 325 MG TABLET PO PRN (20:15)
[2023-05-18] MEDS ORDERED: MILK OF MAGNESIA 400 MG/5 ML 30 ML UDC PO PRN (20:15)
[2023-05-18] MEDS ORDERED: CALCIUM CARBONATE 500 MG (TUMS) TAB.CHEW PO PRN (20:15)
[2023-05-18] MEDS ORDERED: MELATONIN 3 MG TABLET PO PRN (20:15)
[2023-05-18] MEDS ORDERED: NITROGLYCERIN 0.4 MG SL TABS BTL 25'S SL PRN (20:15)
[2023-05-18] MEDS ORDERED: ANTACID SUSP 30 ML UDC (MYLANTA) PO PRN (20:15)
[2023-05-18] MEDS ORDERED: PATIENT MAY USE OWN MEDS, ALL PO SCH (20:15)
[2023-05-18] MEDS ORDERED: ONDANSETRON 4 MG/2 ML (SDV) Z0FRAN IV PRN (20:15)
[2023-05-18] MEDS ORDERED: morphine INJ 4 MG/ML 1 ML (VIAL/SYRINGE) IV PRN (20:15)
[2023-05-18] MEDS ORDERED: polyethylene glycoL POWDER 17 GM (MIRALAX) PACK PO PRN (20:15)
[2023-05-18 20:36] VITALS: BP 137/85
[2023-05-18] MEDS ORDERED: RT-ALBUTEROL/IPRATROPIUM 3 ML (DUONEB) VIAL INH PRN (20:45)
[2023-05-18] MEDS: morphine ER 15 MG (MS CONTIN) TAB PO SCH (22:04)
[2023-05-19] VITALS (7 sets, daily range): BP systolic 114–145; BP diastolic 78–97
[2023-05-19 05:17] LABS: HEMOGLOBIN 8.1 g/dL (11.5-16.0); MEAN PLATELET VOLUME 9.1 fL (9.0-12.2); WHITE BLOOD COUNT 8.1 10^3/uL (4.3-11.0)
[2023-05-19 05:19] LABS: POTASSIUM 4.5 MMOL/L (3.6-5.0)
[2023-05-19 05:21] LABS: CALCIUM 8.5 MG/DL (8.5-10.1)
[2023-05-19 05:25] LABS: CREATININE SERUM 0.83 MG/DL (0.60-1.30)
[2023-05-19] MEDS: morphine ER 15 MG (MS CONTIN) TAB PO SCH ×3 (05:52→20:05)
[2023-05-19] MEDS: CATHETER FLUSH 10 ML SYR IVP SCH ×3 (05:55→20:06)
[2023-05-19] MEDS: RT-ALBUTEROL/IPRATROPIUM 3 ML (DUONEB) VIAL INH SCH ×2 (08:48→22:06)
[2023-05-19] MEDS ORDERED: ASPIRIN E.C. 81 MG (ECOTRIN) TAB PO SCH (09:00)
--- NOTE | 2023-05-19 09:18 | Physical Therapy Evaluation ---
PT Evaluation-General Medical Diagnosis Admission Date May 18, 2023 at 18:44 Medical Diagnosis: elevated troponin / UTI Onset Date: May 18, 2023 Therapy Diagnosis Therapy Diagnosis: weakness Precautions Precautions/Isolations: Aspiration, Fall Prevention Weight Bear Status Weight Bearing/Tolerated Weight Bearing/Tolerated Referral Physician: Dr. Linder Reason for Referral: Evaluation/Treatment Medical History Pertinent Medical History: COPD, HTN, Smoking Additional Medical History Lung cancer with metastasis to the brain Current History ED via EMS secondary to stroke like symptoms, slurred speech and R sided facial drooping. Imaging revealed no cerebral infarcts Reviewed History: Yes Social History Home: Single Level Current Living Status: Alone Prior Prior Level of Function SCALE: Activities may be completed with or without assistive devices. 0-Iidffyvmaq-jscztpl completes the activity by him/herself with no assistance from a helper. 5-Set-up or Clean-up Assistance-helper sets up or cleans up; patient completes activity. [place] assists only prior to or following the activity. 4-Supervision or Touching Assistance-helper provides verbal cues and/or touching/steadying and/or contact guard assistance as patient completes activity. Assistance may be provided throughout the activity or intermittently. 3-Partial/Moderate Assistance-helper does LESS THAN HALF the effort. [place] lifts, holds or supports trunk or limbs, but provides less than half the effort. 2-Substantial/Maximal Assistance-helper does MORE THAN HALF the effort. [place] lifts or holds trunk or limbs and provides more than half the effort. 3-Jevsetjmw-vrbjro does ALL the effort. Patient does none of the effort to complete the activity. Or, the assistance of 2 or more helpers is required for the patient to complete the activity. If activity was not attempted, code reason: 7-Patient Refused. 9-Not Applicable-not attempted and the patient did not perform the activity before the current illness, exacerbation or injury. 10-Not Attempted due to Environmental Limitations-(lack of equipment, weather restraints, etc.). 88-Not Attempted due to Medical Conditions or Safety Concerns. Bed Mobility: 6 Gait: 6 Stairs: 6 Indoor Mobility (Ambulation): Independent Stairs: Independent Prior Devices Use: Walker PT Evaluation-Current Subjective Pt supine in bed agreeable to PT evaluation at this time, denies pain. Reports she is hungry Pt/Family Goals Return home Objective Patient Orientation: Person, Place, Time, Situation Attachments: Oxygen (2L) ROM/Strength ROM Lower Extremities WFL Strength Lower Extremities Grossly 3+/5 with functional mobility - no gross difference R to L. Integumentary/Posture Integumentary refer to nursing notes Posture kyphotic, forward head Sensory Vision: Functional Hearing: Functional Hand Dominance: Right Sensation Right Lower Extremit: Intact Sensation Left Lower Extremity: Intact Sensation Lower Extremities Intact sensations and negative testing for clonus Transfers Roll Left to Right (QC): 6 Sit to Lying (QC): 6 Lying to Sitting/Side of Bed(Q: 6 Sit to Stand (QC): 4 Gait Anticipated Mode of Locomotion: Walk Walk 10 feet (QC): 4 Distance: 20' Gait Assistive Device: FWW Comments/Gait Description Pt ambulates 20 ft in room, with steady gait. O2 sats drop to upper 80s quickly with ambulation Balance Sitting Static: Normal Sitting Dynamic: Normal Standing Static: Normal Standing Dynamic: Normal Assessment/Needs Pt is a 72 year old female with lung cancer that has metastasized to the brain, who presented to ED with stroke like symptoms. Pt presents with good strength, and mobility; however, has poor activity tolerance and her sat quickly drop with activity. 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 Goals Nursing Home Goals PT Nursing Home Goals Time Frame: Jun 02, 2023 Walk 10 feet (QC): 6 Walk 50ft with 2 Turns (QC): 6 Walk 150 ft (QC): 6 PT Plan Problem List Problem List: Activity Tolerance, Safety, Gait, Transfer Treatment/Plan Treatment Plan: Continue Plan of Care Treatment Plan: Functional Activity Andra, Functional Strength, Gait, Safety, Therapeutic Exercise, Transfers Treatment Duration: Jun 02, 2023 Frequency: 6 times per week Estimated Hrs Per Day: .25 hour per day Patient and/or Family Agrees t: Yes Time Time In: 850 Time Out: 911 DATE: May 19, 2023 Total Billed Treatment Time: 21 Total Billed Treatment 1 visit BONNIE (20') LEIGH CORNEJO PT May 19, 2023 09:18
[2023-05-19] MEDS: NS IV 1000 ML 1,000 ML IV SCH (09:47)
--- NOTE | 2023-05-19 09:53 | Consultation-Cardiology ---
HPI-Cardiology Cardiology Consultation: Date of Consultation 05/19/23 Time Seen by a Provider: 09:15 Date of Admission Attending Physician Oscar Garnett MD Admitting Physician Admitting Physician: Ronen Pérez MD Attending Physician: Ronen Pérez MD Consulting Physician JACQUELINE PEDROZA MD, MA, FACP, FACC, FSCAI, CCDS Physician requesting consult: Dr Pérez HPI: Chief Complaint: Reason for card consult: Elevated troponin [address] woman admitted to Dr Pérez with impaired speech and some facial droop and drooling (pt cannot recall the side of droop and drooling). No cp or palp or syncope or shortness of breath or swelling. No n/v/d. Speech has been restored. Does not report any symptoms at this time. States quit smoking 4 months ago. Review of Systems-Cardiology Review of Systems Constitutional: malaise, tiredness; No weight loss, No weight gain Eyes: No vision change Ears/Nose/Throat: No ear discharge, No nasal drainage, No recent hearing loss Respiratory: As described under HPI Cardiovascular: As described under HPI Gastrointestinal: As described under HPI Genitourinary: No dysuria, No hematuria Musculoskeletal: back pain (chronic) Skin: No rash, No ulcerations Psychiatric/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: As described under HPI; No anxiety, No depression FNQ-Bzitgw-Krwtmx Hx Patient Social History Smoking Status: Former Smoker Alcohol Use?: No Pt feels they are or have been: No Immunizations Up To Date Tetanus Booster (TDap): Unknown Date of Pneumonia Vaccine: Jul 25, 2022 Past Medical History PMH As described under Assessment. Family Medical History Family Medical History: She does not report fam h/o early CAD or SCD Allergies and Home Medications Allergies Coded Allergies: fentanyl (Verified Allergy, Intermediate, 09/03/22) hallucinations codeine (Verified Allergy, Unknown, ITCH/HIVES, 09/03/22) Patient Home Medication List Home Medication List Reviewed: Yes Albuterol Sulfate (Ventolin Hfa) 1 Puff Puff, 2 PUFF INH Q4H PRN for SHORTNESS OF BREATH, (Reported) Entered as Reported by: KALPESH REYES on 01/18/23 1021 Cyanocobalamin (Vitamin B-12) (Vitamin B-12) 500 Mcg Tablet, 500 MCG PO DAILY, (Reported) Entered as Reported by: KALPESH REYES on 01/18/23 1017 Dexamethasone (Dexamethasone) 4 Mg Tablet, 4 MG PO Q8H Prescribed by: RONEN PÉREZ on 04/05/23 1339 Docusate Sodium (Docusate Sodium) 100 Mg Capsule, 100 MG PO BID PRN for CONSTIPATION-1ST LINE, (Reported) Entered as Reported by: KALPESH REYES on 09/12/22 1125 Fluticasone/Umeclidin/Vilanter (Trelegy Ellipta 100-62.5-25) 100-62.5 Blst.w.dev, 1 EACH IH 1200, (Reported) Entered as Reported by: BON KNOWLES on 08/23/22 1526 Folic Acid (Folic Acid) 1 Mg Tablet, 1 MG PO 1200, (Reported) Entered as Reported by: CHRISTIAN MUSE on 09/04/22 1331 Hydroxyzine Pamoate (Hydroxyzine Pamoate) 25 Mg Capsule, 25-50 MG PO BID PRN for ANXIETY, (Reported) Entered as Reported by: KALPESH REYES on 04/02/23 1119 Ipratropium/Albuterol Sulfate (Iprat-Albut 0.5-3(2.5) mg/3 ml) 0.5 Mg-3 Mg (2.5 Mg Base)/3 Ml Ampul.neb, 3 ML NEB Q4H PRN for SHORTNESS OF BREATH, (Reported) Entered as Reported by: KALPESH REYES on 09/12/22 1125 Levetiracetam (Levetiracetam) 1,000 Mg Tablet, 1,000 MG PO BID Prescribed by: RONEN PÉREZ on 04/05/23 1339 Morphine Sulfate (Morphine Sulfate ER) 15 Mg Tablet.er, 15 MG PO Q8H, (Reported) Entered as Reported by: KALPESH REYES on 01/18/23 1017 Multivit-Minerals/Folic Acid (Multivitamin Gummies) 200 Mcg Tab.chew, 1 EA PO DAILY, (Reported) Entered as Reported by: KALPESH REYES on 01/18/23 1017 Oxycodone HCl (Oxycodone HCl) 5 Mg Tablet, 5 MG PO Q4H PRN for PAIN-SEVERE (8-10), (Reported) Entered as Reported by: CHRISTIAN MUSE on 09/04/22 1329 Pantoprazole Sodium (Pantoprazole Sodium) 40 Mg Tablet.dr, 40 MG PO DAILY, (Reported) Entered as Reported by: KALPESH REYES on 09/12/22 1125 Promethazine HCl (Promethazine Tablet) 25 Mg Tablet, 25 MG PO Q6H PRN for NAUSEA/VOMITING-2ND LINE, (Reported) Entered as Reported by: KALPESH REYES on 01/18/23 1017 Rosuvastatin Calcium (Rosuvastatin Calcium) 20 Mg Tablet, 20 MG PO HS, (Reported) Entered as Reported by: KALPESH REYES on 08/03/22 1603 Physical Exam-Cardiology Physical Exam Vital Signs/I&O 05/19/23 05/19/23 05/19/23 05/19/23 00:29 01:00 04:49 07:00 Pulse 65 61 64 60 Resp 8 11 B/P (MAP) 132/80 (97) 143/78 (99) Pulse Ox 100 100 O2 Delivery Nasal Cannula Nasal Cannula O2 Flow Rate 2.00 2.00 05/19/23 05/19/23 05/19/23 08:00 08:00 08:48 Temp 36.0 Pulse 66 Resp 16 B/P (MAP) 145/82 (103) Pulse Ox 100 100 100 O2 Delivery Nasal Cannula Nasal Cannula Nasal Cannula O2 Flow Rate 2.00 2.00 2.00 05/19/23 00:00 Intake Total 20 ml Output Total 500 ml Balance -480 ml Capillary Refill : Less Than 3 Seconds Constitutional: AAO x 3, well-developed, well-nourished HEENT: hearing is well preserved; No xanthelasmas are seen Neck: carotid pulses are 2 + bilaterally, with good upstrokes Respiratory: No accessory muscle use; chest expansion is symmetric, other (fair to good bilateral air entry) Cardiovascular: regular rate-rhythm, S1 and S2, systolic murmur Gastrointestinal: No tender; soft; No guarding, No rebound; audible bowel sounds Extremities: No clubbing, No cyanosis, No significant edema Neurologic/Psychiatric: oriented x 3, other (moves all limbs equally) Skin: No rash on exposed areas, No ulcerations on exposed areas Data Review Labs Laboratory Tests 05/18/23 16:25: White Blood Count 10.9, Red Blood Count 3.52L, Hemoglobin 9.8L, Hematocrit 32L, Mean Corpuscular Volume 90, Mean Corpuscular Hemoglobin 28, Mean Corpuscular Hemoglobin Concent 31L, Red Cell Distribution Width 17.2H, Platelet Count 94L, Mean Platelet Volume 8.6L, Immature Granulocyte % (Auto) 9, Neutrophils (%) ( Auto) 71, Lymphocytes (%) (Auto) 15, Monocytes (%) (Auto) 4, Eosinophils (%) (Auto) 0, Basophils (%) (Auto) 0, Neutrophils # (Auto) 7.7, Lymphocytes # (Auto) 1.7, Monocytes # (Auto) 0.5, Eosinophils # (Auto) 0.0, Basophils # (Auto) 0.0, Immature Granulocyte # (Auto) 1.0H, Neutrophils % (Manual) 65, Lymphocytes % (Manual) 15, Monocytes % (Manual) 4, Metamyelocytes % 3, Myelocytes % 3, Band Neutrophils 9, Nucleated Red Blood Cells 1, Atypical Lymphocytes 1, Platelet Estimate OCC LARGE PLT, Percent Immature Platelet Fraction 1.5, Polychromasia SLIGHT, Anisocytosis MODERATE, Tear Drop Cells SLIGHT, Schistocytes SLIGHT, Prothrombin Time 13.2, INR Comment 1.0, Activated Partial Thromboplast Time 23L, D-Dimer 2.66H, Sodium Level 138, Potassium Level 3.7, Chloride Level 105, Carbon Dioxide Level 20L, Anion Gap 13, Blood Urea Nitrogen 19H, Creatinine 1.05, Estimat Glomerular Filtration Rate 57, BUN/Creatinine Ratio 18, Glucose Level 219H, Lactic Acid Level 2.17*H, Calcium Level 8.7, Corrected Calcium 8.9, Total Bilirubin 0.4, Aspartate Amino Transf (AST/SGOT) 13, Alanine Aminotransferase (ALT/SGPT) 19, Alkaline Phosphatase 88, Troponin I 0.115H, Total Protein 5.9L, Albumin 3.7 05/18/23 16:28: Glucometer 217H 05/18/23 16:36: Urine Color YELLOW, Urine Clarity CLOUDY, Urine pH 6.0, Urine Specific [place] 1.015L, Urine Protein TRACEH, Urine Glucose (UA) NEGATIVE, Urine Ketones NEGATIVE, Urine Nitrite NEGATIVE, Urine Bilirubin NEGATIVE, Urine Urobilinogen 0.2, Urine Leukocyte Esterase 3+H, Urine RBC (Auto) TRACE-IH, Urine RBC 2-5H, Urine WBC 50-100H, Urine Squamous Epithelial Cells 5-10, Urine Crystals NONE, Urine Bacteria LARGEH, Urine Casts PRESENT, Urine Hyaline Casts RARE, Urine Mucus NEGATIVE, Urine Culture Indicated YES 05/18/23 18:27: Lactic Acid Level 1.16 05/18/23 19:24: Glucometer 98 05/18/23 21:20: Troponin I 0.151H 05/19/23 03:35: Troponin I 0.136H, Sodium Level 140, Potassium Level 4.5, Chloride Level 110H, Carbon Dioxide Level 21, Anion Gap 9, Blood Urea Nitrogen 17, Creatinine 0.83, Estimat Glomerular Filtration Rate 76, BUN/Creatinine Ratio 20, Glucose Level 107H, Calcium Level 8.5, Triglycerides Level 89, Cholesterol Level 121, LDL Cholesterol Direct 46, VLDL Cholesterol 18, HDL Cholesterol 58 05/19/23 05:10: White Blood Count 8.1, Red Blood Count 2.97L, Hemoglobin 8.1L, Hematocrit 26L, Mean Corpuscular Volume 88, Mean Corpuscular Hemoglobin 27, Mean Corpuscular Hemoglobin Concent 31L, Red Cell Distribution Width 17.0H, Platelet Count 73L, Mean Platelet Volume 9.1, Percent Immature Platelet Fraction 1.5 Microbiology 05/18/23 Urine Culture - Preliminary, Resulted Escherichia coli Laboratory Tests 05/18/23 16:25 05/19/23 03:35 05/19/23 05:10 A/P-Cardiology Assessment/Admission Diagnosis Stroke-like symptoms - managed by Dr Pérez Lung CA with brain mets - managed by Dr Pérez Severe anemia - managed by Dr Pérez Mildly elevated troponin (flat) w/o any evidence of acute coronary syndrome - probably type II MS due supply/demand imbalance Discussion and Recomendations * Echo * Repeat ECG * She does not want treatment with antiplatelet agents because her oncologist has advised against any such treatment * Consider blood transfusion * Monitor labs JACQUELINE PEDROZA MD [facility] CCDS May 19, 2023 09:53
--- NOTE | 2023-05-19 10:03 | History & Physical-Hospitalist ---
History of Present Illness HPI/Chief Complaint Patient is 72-year-old female well-known to me from multiple previous admissions with known history of metastatic lung cancer presented to the emergency department due to new onset slurred speech and facial droop. EMS was summoned to her home due to this and she was found to have a blood sugar of 323. She reports that she does take steroids due to her known brain tumor. She reports that her symptoms started yesterday in the afternoon and per ER report it was at 1540. She was taken emergently to CT which showed no intracranial hemorrhage or evidence of acute infarct but did show interval development of subtle infarct or mass in the right frontal lobe. He was also found to have an elevated troponin of 0.1 and was admitted for further management. This morning she reports feeling about the same and has been up working with physical therapy but has persistent symptoms. Indicates that she has recently been accepted to a correction for further care she believes that is [facility] though is uncertain of that. Source: patient Exam Limitations: no limitations Date Seen 05/19/23 Time Seen by a Provider: 10:03 Attending Physician Oscar Garnett MD PCP Admitting Physician: Ronen Linder MD Attending Physician: Ronen Linder MD Referring Physician Date of Admission May 18, 2023 at 18:44 Home Medications & Allergies Home Medications Reviewed patient Home Medication Reconciliation performed by pharmacy medication reconciliations remanufacturing technician and/or nursing. Patients Allergies have been reviewed. Allergies Allergies Coded Allergies fentanyl (Verified Allergy, Intermediate, 09/03/22) hallucinations codeine (Verified Allergy, Unknown, ITCH/HIVES, 09/03/22) Past Wfcxoqi-Wgrqga-Ytfogb Hx Patient Social History Employed/Student: retired Tobacco Use?: No Smoking Status: Former Smoker Use of E-Cig and/or Vaping dev: No Substance use?: No Alcohol Use?: No Pt feels they are or have been: No Immunizations Up To Date First/Initial COVID19 Vaccinat: 12/12/2020 PFIZER Second COVID19 Vaccination Noe: 01/07/2021 PFIZER Tetanus Booster (TDap): Less Than 5 Years Hepatitis A: No Hepatitis B: No Date of Pneumonia Vaccine: Jul 25, 2022 Seasonal Allergies Seasonal Allergies: No Current Status Advance Directives: Yes Advance Directive Location: Scanned into EMR Communicates: Verbally Primary Language: Sudanese Preferred Spoken Language: Sudanese Is interpretation needed?: No Sensory deficits: Vision impairment, Other Implanted or Applied Medical D: Port-a-cath Past Medical History Surgeries: Abdominal, Hysterectomy COPD Currently Using CPAP: No Currently Using BIPAP: No 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, 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 oz. kg; 20.00 BMI Method: General Appearance: No Apparent Distress, Chronically ill, Thin Respiratory: Lungs Clear, No Respiratory Distress Cardiovascular: Regular Rate, Rhythm, No Murmur Gastrointestinal: Normal Bowel Sounds, Soft Extremity: No Calf Tenderness, No Pedal Edema Neurologic/Psychiatric: Alert, Oriented x3, Facial Droop, Motor Weakness (generalized but not acute) Results Results/Procedures Labs Laboratory Tests 05/18/23 16:25 05/19/23 03:35 05/19/23 05:10 05/20/23 05:15 Patient resulted labs reviewed. Imaging: Reviewed Imaging Report Imaging [facility], [place] NAME: NADIA SCHULTZ [facility] REC#: [id number] PT STATUS: REG ER : 1950 PHYSICIAN: JS WALKER MD ADMIT DATE: 05/18/23/ER Signed Date of Exam:05/18/23 CT HEAD WO-R/O STROKE CLINICAL INDICATION: Patient with slurred speech which started about 1540 hours. Patient has history of lung cancer. EXAM: Axial CT scan of the brain without IV contrast with coronal and sagittal reformatted images. Auto Exposure Controls were utilized during the CT exam to meet ALARA standards for radiation dose reduction. COMPARISON: MRI of the brain with and without contrast dated 04/02/2023. FINDINGS: There is a subtle low-density area involving the high parasagittal posterior left frontal lobe region which may correlate to the area of previously seen enhancing mass with edema on the prior MRI. The previously seen edema has near completely resolved. Stable small area of low-attenuation changes involving the right cerebellar hemisphere. There is a small localized area of loss of miguel-white matter distinction involving the posterior right frontal lobe which may be related to subacute infarct versus a small mass. This is best seen on the axial sequence series 4, image 197 and sagittal reformatted image series 602, image 15. There is no hydrocephalus. Basal cisterns are unremarkable. Extracranial soft tissue, skull, and orbits are unremarkable. Paranasal sinuses and mastoid air cells are clear. IMPRESSION: 1: There is no dense vessel sign. There is no definite evidence of acute cerebral infarct. 2: There is interval development of a small area of loss of miguel-white matter distinction involving the high posterior right frontal lobe which may represent subacute infarct versus a mass. MRI of the brain with and without contrast would better evaluate. 3: There is interval near resolution of the previously seen edema involving the posterior left frontal lobe region with minimal amount remaining. Residual mass in the region cannot be evaluated for on this exam. This would be better evaluated with MRI of the brain with and without IV contrast, if necessary. Results of this report were discussed with Dr. Walker via the telephone on 05/18/2023 at 1655 hours. 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
[2023-05-19] MEDS: ENOXAPARIN 40 MG/0.4 ML (LOVENOX) SYR SQ SCH (11:04)
[2023-05-19] MEDS: cefTRIAXone IV/IM 1,000 MG in NS (IVPB) 50 ML IV SCH (18:13)
[2023-05-20 03:07] VITALS: BP 141/87
[2023-05-20 05:34] LABS: HEMATOCRIT 26 % (35-52); HEMOGLOBIN 8.3 g/dL (11.5-16.0); MEAN CORPUSCULAR HEMOGLOBIN 28 pg (25-34); MEAN CORPUSCULAR HGB CONC 32 g/dL (32-36); MEAN CORPUSCULAR VOLUME 88 fL (80-99); PLATELET COUNT 64 10^3/uL (130-400); WHITE BLOOD COUNT 8.2 10^3/uL (4.3-11.0)
[2023-05-20 05:46] LABS: POTASSIUM 4.5 MMOL/L (3.6-5.0)
[2023-05-20 05:48] LABS: CALCIUM 8.5 MG/DL (8.5-10.1)
[2023-05-20 05:52] LABS: CREATININE SERUM 0.85 MG/DL (0.60-1.30)
[2023-05-20] MEDS: morphine ER 15 MG (MS CONTIN) TAB PO SCH ×3 (06:23→21:09)
[2023-05-20] MEDS: CATHETER FLUSH 10 ML SYR IVP SCH ×3 (06:24→21:09)
[2023-05-20] MEDS: RT-ALBUTEROL/IPRATROPIUM 3 ML (DUONEB) VIAL INH SCH ×2 (07:47→21:30)
[2023-05-20 07:56] VITALS: BP 153/87
--- NOTE | 2023-05-20 10:13 | Progress Note - Hospitalist ---
Subjective HPI/CC On Admission Patient is 72-year-old female well-known to me from multiple previous admissions with known history of metastatic lung cancer presented to the emergency department due to new onset slurred speech and facial droop. EMS was summoned to her home due to this and she was found to have a blood sugar of 323. She reports that she does take steroids due to her known brain tumor. She reports that her symptoms started yesterday in the afternoon and per ER report it was at 1540. She was taken emergently to CT which showed no intracranial hemorrhage or evidence of acute infarct but did show interval development of subtle infarct or mass in the right frontal lobe. He was also found to have an elevated troponin of 0.1 and was admitted for further management. This morning she reports feeling about the same and has been up working with physical therapy but has persistent symptoms. Indicates that she has recently been accepted to a snf for further care she believes that is [facility] though is uncertain of that. Subjective/Events-last exam Pt reports doing ok today but just shaky. Thinks it is because her blood sugars are high and from the steroid. BS 150 this AM but will decrease dose. Patient dose have three cans of pop (Grape Crush, Mr Pibb, and [place] Crush) that I asked her not to drink. Discussed need for MRI in the AM. Focused Exam Lactate Level 05/18/23 16:25: Lactic Acid Level 2.17*H 05/18/23 18:27: Lactic Acid Level 1.16 Objective Exam Vital Signs Vital Signs Date Time Temp Pulse Resp B/P (MAP) Pulse Ox O2 Delivery O2 Flow Rate FiO2 05/20/23 07:56 36.5 98 20 153/87 (109) 97 Room Air 05/20/23 07:48 2.00 05/18/23 20:36 28 Capillary Refill : Less Than 3 Seconds General Appearance: No Apparent Distress, Chronically ill, Thin Respiratory: Lungs Clear, Other (on 3lpm) Cardiovascular: Regular Rate, Rhythm Neurologic/Psychiatric: Alert, Oriented x3, Facial Droop (slight), Other (mildly slurred speech) Results/Procedures Lab Laboratory Tests 05/20/23 05:15 Patient resulted labs reviewed. 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
[2023-05-20 11:26] VITALS: BP 109/76
[2023-05-20] MEDS: inSUlin ASPART (NovoLOG) 1 UNIT/0.01 ML (CHARGE PER UNIT) SC SCH ×3 (11:35→21:09)
[2023-05-20] MEDS: LORazepam 0.5 MG (ATIVAN) TABLET PO PRN (11:52)
[2023-05-20] MEDS: ENOXAPARIN 40 MG/0.4 ML (LOVENOX) SYR SQ SCH (11:52)
--- NOTE | 2023-05-20 13:19 | Progress Note - Cardiology ---
Cardiology SOAP Progress Note Subjective: Gen malaise and weakness No cp or palp or syncope No focal weakness No swelling No n/v/d Objective: I&O/Vital Signs 05/20/23 05/20/23 05/20/23 05/20/23 01:37 03:07 07:00 07:48 Pulse 66 60 90 Resp 18 B/P (MAP) 141/87 (105) Pulse Ox 95 94 O2 Delivery Room Air Nasal Cannula O2 Flow Rate 2.00 05/20/23 05/20/23 05/20/23 05/20/23 07:56 08:00 11:26 12:49 Temp 36.5 36.1 Pulse 98 88 106 Resp 20 18 B/P (MAP) 153/87 (109) 109/76 (87) Pulse Ox 97 98 99 O2 Delivery Room Air Nasal Cannula Nasal Cannula O2 Flow Rate 3.00 3.00 05/20/23 00:00 Intake Total 800 ml Output Total 850 ml Balance -50 ml Constitutional: AAO x 3, well-developed, well-nourished Respiratory: No accessory muscle use; chest expansion is symmetric, other (fair to good bilateral air entry) Cardiovascular: regular rate-rhythm, S1 and S2, systolic murmur Gastrointestional: No tender; soft; No guarding, No rebound; audible bowel sounds Extremities: No clubbing, No cyanosis, No significant edema Neurologic/Psychiatric: oriented x 3, other (moves all limbs equally) Skin: No rash on exposed areas, No ulcerations on exposed areas Results/Procedures: Labs Laboratory Tests 05/19/23 16:43: Glucometer 216H 05/19/23 20:59: Glucometer 179H 05/20/23 05:15: White Blood Count 8.2, Red Blood Count 2.97L, Hemoglobin 8.3L, Hematocrit 26L, Mean Corpuscular Volume 88, Mean Corpuscular Hemoglobin 28, Mean Corpuscular Hemoglobin Concent 32, Red Cell Distribution Width 16.8H, Platelet Count 64L, Mean Platelet Volume 10.0, Sodium Level 140, Potassium Level 4.5, Chloride Level 108H, Carbon Dioxide Level 24, Anion Gap 8, Blood Urea Nitrogen 19H, Creatinine 0.85, Estimat Glomerular Filtration Rate 74, BUN/Creatinine Ratio 22, Glucose Level 150H, Calcium Level 8.5 05/20/23 11:15: Glucometer 126H Microbiology 05/18/23 Blood Culture - Preliminary, Resulted No growth 05/18/23 Urine Culture - Final, Complete Escherichia coli Laboratory Tests 05/18/23 16:25 05/19/23 03:35 05/19/23 05:10 05/20/23 05:15 A/P: Assessment: Stroke-like symptoms - managed by Dr Linder Lung CA with brain mets - managed by Dr Linder Severe anemia and thrombocytopenia - managed by Dr Linder Mildly elevated troponin (flat) w/o any evidence of acute coronary syndrome - probably type II NC due supply/demand imbalance - echo on 05-20-23: LVEF 55-60% Plan: * Antiplatelet and anticoag contraindicated because of marked anemia and thrombocytopenia * Monitor labs JACQUELINE PEDROZA MD FACP FAC CCDS May 20, 2023 13:19
[2023-05-20 16:02] VITALS: BP 127/75
[2023-05-20] MEDS: cefTRIAXone IV/IM 1,000 MG in NS (IVPB) 50 ML IV SCH (17:20)
[2023-05-20 20:00] VITALS: BP 147/96
[2023-05-20 23:16] VITALS: BP 163/86
[2023-05-21 03:12] VITALS: BP 160/83
[2023-05-21 05:25] LABS: HEMOGLOBIN 8.8 g/dL (11.5-16.0)
[2023-05-21] MEDS: morphine ER 15 MG (MS CONTIN) TAB PO SCH ×3 (05:26→20:51)
[2023-05-21 05:27] LABS: MEAN PLATELET VOLUME 9.8 fL (9.0-12.2); WHITE BLOOD COUNT 8.9 10^3/uL (4.3-11.0)
[2023-05-21 05:39] LABS: POTASSIUM 4.7 MMOL/L (3.6-5.0)
[2023-05-21 05:40] LABS: CALCIUM 8.7 MG/DL (8.5-10.1)
[2023-05-21 05:44] LABS: CREATININE SERUM 0.94 MG/DL (0.60-1.30)
[2023-05-21] MEDS: inSUlin ASPART (NovoLOG) 1 UNIT/0.01 ML (CHARGE PER UNIT) SC SCH ×4 (06:13→23:02)
[2023-05-21] MEDS: CATHETER FLUSH 10 ML SYR IVP SCH ×3 (06:17→23:02)
[2023-05-21 07:54] VITALS: BP 142/97
--- NOTE | 2023-05-21 09:40 | Progress Note - Cardiology ---
Cardiology SOAP Progress Note Subjective: No cp or palp or syncope or shortness of breath Gen malaise and weakness present Does not report any focal weakness No n/v/d Objective: I&O/Vital Signs 05/20/23 05/21/23 05/21/23 05/21/23 23:16 01:00 03:12 07:17 Temp 36.2 36.1 Pulse 63 108 73 73 Resp 16 18 B/P (MAP) 163/86 (111) 160/83 (108) Pulse Ox 96 98 O2 Delivery Nasal Cannula Nasal Cannula O2 Flow Rate 3.00 3.00 05/21/23 07:54 Temp 36.3 Pulse 89 Resp 12 B/P (MAP) 142/97 (112) Pulse Ox 100 O2 Delivery Nasal Cannula O2 Flow Rate 3.00 05/21/23 00:00 Intake Total 720 ml Output Total 700 ml Balance 20 ml Constitutional: AAO x 3, well-developed, well-nourished Respiratory: No accessory muscle use; chest expansion is symmetric, other (fair to good bilateral air entry) Cardiovascular: regular rate-rhythm, S1 and S2, systolic murmur Gastrointestional: No tender; soft; No guarding, No rebound; audible bowel sounds Extremities: No clubbing, No cyanosis, No significant edema Neurologic/Psychiatric: oriented x 3, other (moves all limbs equally) Skin: No rash on exposed areas, No ulcerations on exposed areas Results/Procedures: Labs Laboratory Tests 05/20/23 11:15: Glucometer 126H 05/20/23 15:21: Glucometer 245H 05/20/23 20:44: Glucometer 164H 05/21/23 05:04: White Blood Count 8.9, Red Blood Count 3.19L, Hemoglobin 8.8L, Hematocrit 28L, Mean Corpuscular Volume 88, Mean Corpuscular Hemoglobin 28, Mean Corpuscular Hemoglobin Concent 31L, Red Cell Distribution Width 16.9H, Platelet Count 77L, Mean Platelet Volume 9.8, Percent Immature Platelet Fraction 1.5, Sodium Level 139, Potassium Level 4.7, Chloride Level 107, Carbon Dioxide Level 26, Anion Gap 6, Blood Urea Nitrogen 23H, Creatinine 0.94, Estimat Glomerular Filtration Rate 65, BUN/Creatinine Ratio 24, Glucose Level 115H, Calcium Level 8.7 Microbiology 05/18/23 Blood Culture - Preliminary, Resulted No growth 05/18/23 Urine Culture - Final, Complete Escherichia coli Laboratory Tests 05/20/23 05:15 05/21/23 05:04 A/P: Assessment: Stroke-like symptoms - managed by the Hospitalist Amina Lung CA with brain mets - managed by the Hospitalist Amina Severe anemia and thrombocytopenia - managed by the Hospitalist Amina Mildly elevated troponin (flat) w/o any evidence of acute coronary syndrome - probably type II NV due supply/demand imbalance - echo on 05-20-23: LVEF 55-60% Plan: * Complex management * Antiplatelet and anticoag contraindicated because of marked anemia and thrombocytopenia * Monitor labs JACQUELINE PEDROZA MD FACP FAC CCDS May 21, 2023 09:40
[2023-05-21] MEDS: LORazepam 0.5 MG (ATIVAN) TABLET PO PRN (10:16)
[2023-05-21] MEDS: RT-ALBUTEROL/IPRATROPIUM 3 ML (DUONEB) VIAL INH SCH ×2 (10:30→20:16)
--- NOTE | 2023-05-21 11:33 | Physical Therapy Daily Note ---
PT Daily Note-Current Subjective Pt found laying in bed upon entry. Agreed to PT. States that she is not having any pain right now. Pain Section J - Health Conditions 1. Rarely or not at all 2. Occasionally 3. Frequently 4. Almost constantly 8. Unable to answer Pain Effect on Sleep: 1 Pain Interference with Therapy: 1 Pain Interference w/Day-to-Day: 1 Mental Status Patient Orientation: Person, Place Attachments: Oxygen, Vo Catheter, IV Telemetry. 3L O2. Transfers SCALE: Activities may be completed with or without assistive devices. 2-Ncrhweqoio-hbgmaqf completes the activity by him/herself with no assistance from a helper. 5-Set-up or Clean-up Assistance-helper sets up or cleans up; patient completes activity. [place] assists only prior to or following the activity. 4-Supervision or Touching Assistance-helper provides verbal cues and/or touching/steadying and/or contact guard assistance as patient completes activity. Assistance may be provided throughout the activity or intermittently. 3-Partial/Moderate Assistance-helper does LESS THAN HALF the effort. [place] lifts, holds or supports trunk or limbs, but provides less than half the effort. 2-Substantial/Maximal Assistance-helper does MORE THAN HALF the effort. [place] lifts or holds trunk or limbs and provides more than half the effort. 4-Zpebmmiou-jpyale does ALL the effort. Patient does none of the effort to complete the activity. Or, the assistance of 2 or more helpers is required for the patient to complete the activity. If activity was not attempted, code reason: 7-Patient Refused. 9-Not Applicable-not attempted and the patient did not perform the activity before the current illness, exacerbation or injury. 10-Not Attempted due to Environmental Limitations-(lack of equipment, weather restraints, etc.). 88-Not Attempted due to Medical Conditions or Safety Concerns. Sit to Lying (QC): 6 Lying to Sitting/Side of Bed(Q: 6 Sit to Stand (QC): 4 Toilet Transfer (QC): 4 Pt independent /c all bed mobility. CGA for safety /c sit to stand and toilet transfers due to strength and balance deficits. No loss of balance demonstrated /c completion. Weight Bearing Weight Bearing/Tolerated Weight Bearing/Tolerated Gait Training Does the Patient Walk?: Yes Distance: 5, 5 Gait Assistive Device: FWW Pt ambulated 5 feet x 2 from edge of bed to bedside commode. Displays good step lengths and gait speed. No loss of balance demonstrated. Assessment Current Status: Fair Progress Pt independent /c all bed mobility. Completes sit to stand and toilet transfer /c CGA. Pt ambulates 5 feet x 2 this visit /c use of FWW. No loss of balance displayed throughout visit. Minor fatigue reported /c completion. Continue to progress per POC to improve strength, endurance, and functional ability. PT Shelter Goals Shelter Goals PT Shelter Goals Time Frame: Jun 02, 2023 Walk 10 feet (QC): 6 Walk 50ft with 2 Turns (QC): 6 Walk 150 ft (QC): 6 PT Plan Treatment/Plan Treatment Plan: Continue Plan of Care Treatment Plan: Functional Activity Andra, Functional Strength, Gait, Safety, Therapeutic Exercise, Transfers Treatment Duration: Jun 02, 2023 Frequency: 6 times per week Estimated Hrs Per Day: .25 hour per day Patient and/or Family Agrees t: Yes Time Time In: 930 Time Out: 953 DATE: May 21, 2023 Total Billed Treatment Time: 23 Total Billed Treatment 1 visit FA x 2 BASIA MOORE [employer] MANAGER May 21, 2023 11:33
--- NOTE | 2023-05-21 11:41 | ST Dysphagia Evaluation ---
Speech Evaluation-General Medical Diagnosis Elevated Troponin /UTI Onset Date: May 18, 2023 Therapy Diagnosis Therapy Diagnosis: Oral Dysphagia Precautions Precautions: Fall, Pressure Ulcer, Aspiration Precautions/Isolations: Aspiration, Fall Prevention, Pressure Ulcer Referral Referring Physician: Dr. Linder Reason for Referral: Evaluation/Treatment Medical History Pertinent Medical History: COPD, HTN, Smoking Current History CXR: 05/18/2023: Significant improvement in interstitial infiltrates compared to 03/31/2023. There is some mild chronic interstitial prominence which may be due to fibrotic change. There is no new consolidation or pleural fluid. Reviewed History: Yes Social History Current Living Status: Alone Speech PLF/Current-Dysphagia Prior Level of Function The patient stated she consumes a regular consistency diet with thin liquids at home. Per patient, she is edentulous but remains able to "mash" solid consiste ncies with her gums ("You'd be surprised how tough these things get."). The patient denied s/s of suspected aspiration with P.O. intake. Subjective The patient was seated upright in bed, awake and alert, upon entrance to her room by the clinician. The patient greeted the clinician appropriately and was agreeable to participation in the clinical bedside swallowing evaluation. The patient is currently receiving 3L of supplemental oxygen. Per patient, she received 1.5L of supplemental oxygen at home. Cognitive Status Patient Orientation: Person, Place, Situation Oral Motor Skills Dentition: Edentalous Current Food Consistancy: Regular, Thin Liquids Ability to Follow Directions: Good Oral Expression Ability: No Impairment Voice Voice Phonatory-Based Quality: Harsh, Glottal Valentine Voice Pitch: Mildly Low Voice Loudness: Normal Face Facial Symmetry: Asymmetrical (Slight left facial drooping appreciated.) Oral-Facial Assessment Labial Seal Description: Droops Left, Weak Smile: Poor Coordination Puff Cheeks: Reduced Strength Lingual Protrusion: Normal Lingual ROM: Normal Lingual Strength: Normal Volitional Dry Swallow: Yes Voluntary Cough: Yes Can Clear Throat Volitionally: Yes Productive Cough: Yes Productive Throat Clear: Yes Dysphagia Evaluation Consistencies Presented: Regular, Thin Liquid, Pureed The patient displayed prolonged mastication/mashing of the solid consistency. Left buccal pocketing of solid residue was appreciated. The solid consistency (including pocketing) was cleared from the oral cavity with a subsequent thin liquid bolus. Laryngeal elevation was present to palpation. The patient did not display overt s/s of suspected aspiration with any consistency tested. The patient does display prolonged mastication with solid consistencies and the necessity of a subsequent thin liquid bolus to clear the oral cavity. Mild pocketing of the solid residue was noted along the left buccal cavity. The patient cleared the material with a subsequent drink of thin liquid. Dietary Recommendations: Mechanical Soft (SB6) Liquid Recommendations: Thin Recommendations: - SB6 with thin liquids, as tolerated. - Fully upright and alert for P.O. intake. - Present food and liquid to the strong, right labial side. - Assess the left buccal area for pocketing during and following P.O. intake. - Small bites and sips. - Alternate bites and sips on a 1:1 ratio. - Monitor for s/s of suspected aspiration with P.O. intake. If demonstrated, please contact speech pathology. - Speech pathology to follow the patient for diet tolerance. The results and recommendations were provided to the patient and the patient's RN. Additionally, the results were written on the in-room white board. Speech Short Term Goals Short Term Goals Short Term Goals 1. The patient, family, and staff members will display safe swallowing precautions with 90% accuracy. Time Frame-STG: Five Days. Speech Vice President Of Product Marketing Goals Fpc Goals 1. The patient will tolerate the least restrictive diet consistency without s/s of suspected aspiration. Time Frame: One Week. Speech-Plan Treatment Plan Speech Therapy Treatment Plan: Continue Plan of Care Frequency: 3 times per week Estimated Hrs Per Day: .25 hour per day Rehab Potential: Fair Pt/Family Agrees to Plan: Yes Safety Risks/Education Teaching Recipient: Patient Teaching Methods: Discussion Response to Teaching: Verbalize Understanding Education Topics Provided: Results, Recommendations, Safe Swallowing Strategies Time Speech Therapy Time In: 10:13 Speech Therapy Time Out: 10:33 DATE: May 21, 2023 Total Billed Time: 20 Billed Treatment Time 1, NICANOR SCOTT [facility] May 21, 2023 11:41
[2023-05-21 11:52] VITALS: BP 107/93
[2023-05-21] MEDS ORDERED: GADOTERATE 0.5 MMOL/ML (CLARISCAN) 15 ML VIAL IV ONE (14:00)
--- NOTE | 2023-05-21 16:02 | Progress Note - Hospitalist ---
Subjective HPI/CC On Admission Date Seen by Provider: May 21, 2023 Time Seen by Provider: 09:50 Patient is 72-year-old female well-known to me from multiple previous admissions with known history of metastatic lung cancer presented to the emergency department due to new onset slurred speech and facial droop. EMS was summoned to her home due to this and she was found to have a blood sugar of 323. She reports that she does take steroids due to her known brain tumor. She reports that her symptoms started yesterday in the afternoon and per ER report it was at 1540. She was taken emergently to CT which showed no intracranial hemorrhage or evidence of acute infarct but did show interval development of subtle infarct or mass in the right frontal lobe. He was also found to have an elevated troponin of 0.1 and was admitted for further management. This morning she reports feeling about the same and has been up working with physical therapy but has persistent symptoms. Indicates that she has recently been accepted to a intermediate for further care she believes that is [facility] though is uncertain of that. Subjective/Events-last exam She is sitting in bed. She has no complaints. She is feeling about the same. Her sister is present and was updated during a second visit. Focused Exam Lactate Level 05/18/23 16:25: Lactic Acid Level 2.17*H 05/18/23 18:27: Lactic Acid Level 1.16 Objective Exam Vital Signs Vital Signs Date Time Temp Pulse Resp B/P (MAP) Pulse Ox O2 Delivery O2 Flow Rate FiO2 05/21/23 12:40 79 05/21/23 11:52 36.2 14 107/93 (98) 100 Nasal Cannula 3.00 05/18/23 20:36 28 Capillary Refill : Less Than 3 Seconds General Appearance: No Apparent Distress, Chronically ill Neck: Normal Inspection, Supple Respiratory: No Respiratory Distress, Decreased Breath Sounds Cardiovascular: Regular Rate, Rhythm, No Edema, No Murmur Gastrointestinal: Normal Bowel Sounds, Soft Extremity: Normal Inspection, No Pedal Edema Neurologic/Psychiatric: Alert, Facial Droop, Motor Weakness Skin: Normal Color Results/Procedures Lab Laboratory Tests 05/21/23 05:04 Patient resulted labs reviewed. 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 Elevated troponin Cardiology following Troponin stable Conservative management recommended UTI Culture with silvestre-sensitive E coli Transition to Keflex End Stage COPD Chronic Hypoxic Respiratory Failure On 3lpm MAT protocol Continue home meds HTN HLD GERD BP well controlled, trend Continue home metoprolol No acute needs Steroid induced hyperglycemia Likely due to steroids SSI DVT ppx: Lovenox Diagnosis/Problems Diagnosis/Problems (1) Slurred speech Status: Acute (2) Metastatic primary lung cancer Status: Acute Qualifiers: Laterality: right Qualified Codes: C34.91 - Malignant neoplasm of uns pecified part of right bronchus or lung (3) Brain mass Status: Acute (4) UTI (urinary tract infection) Status: Acute Qualifiers: Urinary tract infection type: acute cystitis Hematuria presence: without hematuria Qualified Codes: N30.00 - Acute cystitis without hematuria (5) Elevated troponin (6) Chronic respiratory failure with hypoxia Status: Chronic (7) COPD (chronic obstructive pulmonary disease) Status: Acute FARA CAMPOS MD May 21, 2023 16:01
--- NOTE | 2023-05-21 16:14 | Occupational Therapy Eval ---
OT Evaluation-General/PLF Medical Diagnosis Admission Date May 18, 2023 at 18:44 Medical Diagnosis: Elevated Troponin /UTI Onset Date: May 18, 2023 Therapy Diagnosis Therapy Diagnosis: decr self care, weakness, decr funct mobility, decr act eddy Precautions Precautions/Isolations: Standard Precautions Referral Physician: Dr. Linder Referral Reason: Evaluation/Treatment Medical History Pertinent Medical History: COPD, HTN, Smoking Additional Medical History Lung CA with mets to brain. Kidney stones, chronic UTI. Chronic back pain. Anxiety. Chronic hypoxia with respiratory failure Current History Admitted with slurred speech, possible CVA, facial droop. UTI. Elevated troponin Reviewed History: Yes Social History Home: Single Level Current Living Status: Alone ADL-Prior Level of Function SCALE: Activities may be completed with or without assistive devices. 7-Egxhfrngcn-suouhev completes the activity by him/herself with no assistance from a helper. 5-Set-up or Clean-up Assistance-helper sets up or cleans up; patient completes activity. [place] assists only prior to or following the activity. 4-Supervision or Touching Assistance-helper provides verbal cues and/or touching/steadying and/or contact guard assistance as patient completes activity. Assistance may be provided throughout the activity or intermittently. 3-Partial/Moderate Assistance-helper does LESS THAN HALF the effort. [place] lifts, holds or supports trunk or limbs, but provides less than half the effort. 2-Substantial/Maximal Assistance-helper does MORE THAN HALF the effort. [place] lifts or holds trunk or limbs and provides more than half the effort. 3-Uhpgfenht-nbvaxt does ALL the effort. Patient does none of the effort to complete the activity. Or, the assistance of 2 or more helpers is required for the patient to complete the activity. If activity was not attempted, code reason: 7-Patient Refused. 9-Not Applicable-not attempted and the patient did not perform the activity before the current illness, exacerbation or injury. 10-Not Attempted due to Environmental Limitations-(lack of equipment, weather restraints, etc.). 88-Not Attempted due to Medical Conditions or Safety Concerns. ADL PLOF Comments Pt reported that she was able to take care of her basic needs but it was getting more difficult. She no longer drives Self Care: Independent Functional Cognition: Independent OT Current Status Subjective Pty seen in room, up in bed, agreeable to OT. No pain reported. Appearance Alert, cooperative Mental Status/Objective Attachments: Oxygen Current Glasses/Contacts: Yes (reading) Hearing Aids: No Dentures/Partials: Yes (Doesn't wear) Hand Dominance: Right Upper Extremity ROM Grossly WFL bilaterally Upper Extremity Strength Grossly 3+/5 bilat ADL-Treatment ADL-Current Pt has been able to feed herself. CGA with toilet transfer, per PT note. Walked with FWW, O2 sats dropping. She anticipates being discharged to [facility] Education OT Patient Education: Purpose of tx/functional activities, Rehab process Teaching Recipient: Patient Teaching Methods: Discussion Response to Teaching: Verbalize Understanding OT Long-Term Goals Bottom Polisher Goals Time Frame: May 26, 2023 Eating (QC): 6 Oral Hygiene (QC): 5 Toileting Hygiene (QC): 5 Shower/Bathe Self (QC): 4 Upper Body Dressing (QC): 5 Lower Body Dressing (QC): 4 On/Off Footwear (QC): 3 Additional Goals: 1-Demonstrate ADL Tasks, 2-Verbalize Understanding, 3- ImproveStrength/Andra 1=Demonstrate adherence to instructed precautions during ADL tasks. 2=Patient will verbalize/demonstrate understanding of assistive devices/modifications for ADL. 3=Patient will improve strength/tolerance for activity to enable patient to perform ADL's. OT Education/Plan Problem List/Assessment Assessment: Decreased Activ Tolerance, Decreased UE Strength, Dependent Transfers, Impaired Bed Mobility, Impaired Self-Care Skills Pt would benefit from skilled OT to increase her independence in basic self care and decrease caregiver burden. Discharge Recommendations Plan/Recommendations: Continue POC Treatment Plan/Plan of Care Treatment,Training & Education: Yes Patient would benefit from OT for education, treatment and training to promote independence in ADL's, mobility, safety and/or upper extremity function for ADL's. Plan of Care: ADL Retraining, Functional Mobility, UE Funct Exercise/Act Treatment Duration: May 26, 2023 Frequency: 5 times per week (4-5 times a week) Estimated Hrs Per Day: .25 hour per day Agreement: Yes Rehab Potential: Fair Time Start Time: 14:47 Stop Time: 14:54 DATE: May 21, 2023 Total Time Billed (hr/min): 7 Billed Treatment Time visit, 7 minutes evaluation moderate intensity SARITHA GARCES OT May 21, 2023 16:14
--- NOTE | 2023-05-21 16:21 | Diagnostic Imaging Report ---
PROCEDURE: MR imaging of the brain with and without contrast. TECHNIQUE: Multiplanar, multisequence MR imaging of the brain was performed with and without contrast. INDICATION: Possible brain metastases. Abnormal CT head without contrast. COMPARISON: CT head without contrast 05/18/2023. FINDINGS: Kanj-fs-edlrvflm generalized parenchymal volume loss. Multifocal foci of restricted water diffusion scattered throughout both cerebral and cerebellar hemispheres. The largest of these is in the lateral posterior right frontal lobe and measures up to 1.8 cm. 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 There is a small focus of enhancement including the left precentral gyrus measuring 0.4 cm. This does not correspond to a restricted water diffusion abnormality. No hemosiderin deposition or evidence of intracranial hemorrhage. Normal morphology of the major midline structures, sella, posterior fossa, and cerebellar pontine angle. Normal intracranial flow voids. No hydrocephalus or extra-axial fluid collections. The orbits are unremarkable. Paranasal sinuses and mastoids are clear. Normal bone marrow signal. IMPRESSION: 1. Several small pgknp-rk-oajkhobh infarcts scattered throughout both cerebral and cerebellar hemispheres, the largest in the lateral right frontal lobe measuring up to 1.8 cm. Findings are strongly suspicious for a central embolic phenomenon given the distribution. 2. There is a single focus of enhancement in the left precentral gyrus measuring 0.4 cm, which does not correspond to restricted water diffusion signal currently visible. Findings could be due to an old or subacute infarct. An intracranial metastatic lesion is not excluded. Recommend short-term follow-up in 4-6 weeks. Dictated by: Dictated on workstation # [id number]
[2023-05-21 16:23] VITALS: BP 128/89
[2023-05-21 20:17] VITALS: BP 128/89
[2023-05-21] MEDS ORDERED: RT-ALBUTEROL/IPRATROPIUM 3 ML (DUONEB) VIAL INH PRN (20:30)
[2023-05-21] MEDS: CEPHALEXIN 250 MG (KEFLEX) CAP PO SCH (20:51)
[2023-05-21 20:53] VITALS: BP 136/94
[2023-05-22] VITALS: BP 159/101
[2023-05-22 04:00] VITALS: BP 163/94
[2023-05-22 05:35] LABS: HEMOGLOBIN 8.9 g/dL (11.5-16.0)
[2023-05-22 05:37] LABS: MEAN PLATELET VOLUME 9.7 fL (9.0-12.2); WHITE BLOOD COUNT 11.1 10^3/uL (4.3-11.0)
[2023-05-22 05:53] LABS: POTASSIUM 4.3 MMOL/L (3.6-5.0)
[2023-05-22 05:54] LABS: CALCIUM 8.6 MG/DL (8.5-10.1)
[2023-05-22 05:58] LABS: CREATININE SERUM 0.82 MG/DL (0.60-1.30)
[2023-05-22] MEDS: CATHETER FLUSH 10 ML SYR IVP SCH ×3 (06:26→21:02)
[2023-05-22] MEDS: inSUlin ASPART (NovoLOG) 1 UNIT/0.01 ML (CHARGE PER UNIT) SC SCH ×4 (06:26→21:03)
[2023-05-22] MEDS: morphine ER 15 MG (MS CONTIN) TAB PO SCH ×3 (06:26→21:01)
[2023-05-22 07:40] VITALS: BP 141/91
[2023-05-22] MEDS: CEPHALEXIN 250 MG (KEFLEX) CAP PO SCH ×2 (08:06→21:01)
--- NOTE | 2023-05-22 09:15 | Physical Therapy Daily Note ---
PT Daily Note-Current Subjective Pt reclined in bed upon arrival to room, agreeable to PT treatment. Reports her lungs are hurting this date, rates pain at 4/10. Pain Section J - Health Conditions 1. Rarely or not at all 2. Occasionally 3. Frequently 4. Almost constantly 8. Unable to answer Pain Effect on Sleep: 1 Pain Interference with Therapy: 1 Pain Interference w/Day-to-Day: 1 Appearance Following session, pt reclined in bed with call light, tray table and phone within reach. RN present at bedside Mental Status Patient Orientation: Person, Place, Situation Attachments: Oxygen, IV Transfers SCALE: Activities may be completed with or without assistive devices. 7-Arwgyrugng-hbjkwyl completes the activity by him/herself with no assistance from a helper. 5-Set-up or Clean-up Assistance-helper sets up or cleans up; patient completes activity. Kamrar assists only prior to or following the activity. 4-Supervision or Touching Assistance-helper provides verbal cues and/or touching/steadying and/or contact guard assistance as patient completes activity. Assistance may be provided throughout the activity or intermittently. 3-Partial/Moderate Assistance-helper does LESS THAN HALF the effort. Kamrar lifts, holds or supports trunk or limbs, but provides less than half the effort. 2-Substantial/Maximal Assistance-helper does MORE THAN HALF the effort. Kamrar lifts or holds trunk or limbs and provides more than half the effort. 5-Iwsesrnwf-xrjpzt does ALL the effort. Patient does none of the effort to complete the activity. Or, the assistance of 2 or more helpers is required for the patient to complete the activity. If activity was not attempted, code reason: 7-Patient Refused. 9-Not Applicable-not attempted and the patient did not perform the activity before the current illness, exacerbation or injury. 10-Not Attempted due to Environmental Limitations-(lack of equipment, weather restraints, etc.). 88-Not Attempted due to Medical Conditions or Safety Concerns. Roll Left & Right (QC): 6 Sit to Lying (QC): 6 Lying to Sitting/Side of Bed(Q: 6 Sit to Stand (QC): 4 Weight Bearing Weight Bearing/Tolerated Weight Bearing/Tolerated Gait Training Distance: 25 Walk 10 feet (QC): 4 Gait Assistive Device: FWW Pt ambulates within room, frequently lifting walker to turn around despite cueing. Exercises Seated Therapy Exercises: Long arc quads Standing: Heel/toe raises, Marching Treatments Pt O2 sats drop with any activity into low 80s/ upper 70s; unsure if some of this is due to artifact from sensor. HR elevates into 210s with activity Assessment Current Status: Fair Progress Pt tolerated increase in activity this date, limited due to HR and O2 sats PT Retirement Goals Tool Machinist Goals PT Tool Machinist Goals Time Frame: Jun 02, 2023 Walk 10 feet (QC): 6 Walk 50ft with 2 Turns (QC): 6 Walk 150 ft (QC): 6 PT Plan Problem List Problem List: Activity Tolerance, Functional Strength, Safety, Balance, Gait, Transfer, Bed Mobility, ROM Treatment/Plan Treatment Plan: Continue Plan of Care Treatment Plan: Functional Activity Andra, Functional Strength, Gait, Safety, Therapeutic Exercise, Transfers Treatment Duration: Jun 02, 2023 Frequency: 6 times per week Estimated Hrs Per Day: .25 hour per day Patient and/or Family Agrees t: Yes Time Time In: 758 Time Out: 811 DATE: May 22, 2023 Total Billed Treatment Time: 13 Total Billed Treatment 1 visit EX (13') LEIGH CORNEJO PT May 22, 2023 09:15
[2023-05-22] MEDS ORDERED: DOCUSATE SODIUM 100 MG (COLACE) CAP PO ONE (10:00)
[2023-05-22] MEDS ORDERED: polyethylene glycoL POWDER 17 GM (MIRALAX) PACK PO PRN (10:00)
[2023-05-22] MEDS ORDERED: SENNA W/DOCUSATE (SENOKOT S) TABLET PO ONE (10:00)
[2023-05-22 11:26] VITALS: BP 128/87
[2023-05-22] MEDS ORDERED: ASPI-1238 PO (13:31)
[2023-05-22] MEDS ORDERED: AMLO-250 PO (13:31)
[2023-05-22] MEDS ORDERED: LISI20TA26 PO (13:31)
[2023-05-22] MEDS ORDERED: LEVE500T6 PO (13:31)
[2023-05-22] MEDS ORDERED: METO100T12 PO (13:31)
--- NOTE | 2023-05-22 14:13 | Progress Note - Hospitalist ---
Subjective HPI/CC On Admission Date Seen by Provider: May 22, 2023 Time Seen by Provider: 10:25 Patient is 72-year-old female well-known to me from multiple previous admissions with known history of metastatic lung cancer presented to the emergency department due to new onset slurred speech and facial droop. EMS was summoned to her home due to this and she was found to have a blood sugar of 323. She reports that she does take steroids due to her known brain tumor. She reports that her symptoms started yesterday in the afternoon and per ER report it was at 1540. She was taken emergently to CT which showed no intracranial hemorrhage or evidence of acute infarct but did show interval development of subtle infarct or mass in the right frontal lobe. He was also found to have an elevated troponin of 0.1 and was admitted for further management. This morning she reports feeling about the same and has been up working with physical therapy but has persistent symptoms. Indicates that she has recently been accepted to a [facility] for further care she believes that is [facility] though is uncertain of that. Subjective/Events-last exam She is feeling about the same. She has no new complaints. Objective Exam Vital Signs Vital Signs Date Time Temp Pulse Resp B/P (MAP) Pulse Ox O2 Delivery O2 Flow Rate FiO2 05/22/23 12:22 93 05/22/23 11:26 36.0 14 128/87 (101) 100 Nasal Cannula 2.00 05/21/23 20:17 28 Capillary Refill : Less Than 3 Seconds General Appearance: No Apparent Distress, Chronically ill Respiratory: No Respiratory Distress, Decreased Breath Sounds Cardiovascular: Regular Rate, Rhythm, No Murmur Gastrointestinal: Normal Bowel Sounds, Soft Extremity: Normal Inspection, No Pedal Edema Neurologic/Psychiatric: Alert, Oriented x3 Skin: Normal Color, Warm/Dry Results/Procedures Lab Laboratory Tests 05/22/23 05:29 Patient resulted labs reviewed. 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 Palliative care consulted, encouraged consideration of hospice with patient and sister Madhuri Elevated troponin Cardiology following Troponin stable Conservative management recommended UTI Keflex End Stage COPD Chronic Hypoxic Respiratory Failure On 3lpm MAT protocol Continue home meds HTN HLD GERD BP well controlled, trend Continue home metoprolol No acute needs Steroid induced hyperglycemia SSI DVT ppx: Lovenox Diagnosis/Problems Diagnosis/Problems (1) Embolic stroke Status: Acute Qualifiers: Laterality of affected vessel: bilateral (2) Slurred speech Status: Acute (3) Metastatic primary lung cancer Status: Acute Qualifiers: Laterality: right Qualified Codes: C34.91 - Malignant neoplasm of unspecified part of right bronchus or lung (4) Brain mass Status: Acute (5) UTI (urinary tract infection) Status: Acute Qualifiers: Urinary tract infection type: acute cystitis Hematuria presence: without hematuria Qualified Codes: N30.00 - Acute cystitis without hematuria (6) Elevated troponin (7) Chronic respiratory failure with hypoxia Status: Chronic (8) COPD (chronic obstructive pulmonary disease) Status: Acute FARA CAMPOS MD May 22, 2023 14:13
--- NOTE | 2023-05-22 15:26 | Progress Note - Cardiology ---
Cardiology SOAP Progress Note Subjective: Gen weakness and malaise present Does not report focal weakness No cp or palp or syncope No shortness of breath with rest. Shortness of breath with exertion No n/v/d Objective: I&O/Vital Signs 05/22/23 05/22/23 05/22/23 05/22/23 04:00 04:00 07:08 07:10 Temp 35.9 Pulse 60 64 Resp 13 B/P (MAP) 163/94 (117) Pulse Ox 100 98 O2 Delivery Nasal Cannula Nasal Cannula O2 Flow Rate 2.00 3.00 05/22/23 05/22/23 05/22/23 05/22/23 07:40 08:00 11:26 12:22 Temp 36.1 36.0 Pulse 66 76 93 Resp 14 14 B/P (MAP) 141/91 (108) 128/87 (101) Pulse Ox 100 99 100 O2 Delivery Nasal Cannula Nasal Cannula Nasal Cannula O2 Flow Rate 2.00 2.00 2.00 05/22/23 00:00 Intake Total 1170 ml Output Total 250 ml Balance 920 ml Constitutional: AAO x 3, well-developed, well-nourished Respiratory: No accessory muscle use; chest expansion is symmetric, other (fair to good bilateral air entry) Cardiovascular: regular rate-rhythm, S1 and S2, systolic murmur Gastrointestional: No tender; soft; No guarding, No rebound; audible bowel sounds Extremities: No clubbing, No cyanosis, No significant edema Neurologic/Psychiatric: oriented x 3, other (moves all limbs equally) Skin: No rash on exposed areas, No ulcerations on exposed areas Results/Procedures: Labs Laboratory Tests 05/21/23 16:17: Glucometer 177H 05/22/23 05:29: White Blood Count 11.1H, Red Blood Count 3.22L, Hemoglobin 8.9L, Hematocrit 28L, Mean Corpuscular Volume 88, Mean Corpuscular Hemoglobin 28, Mean Corpuscular Hemoglobin Concent 31L, Red Cell Distribution Width 17.2H, Platelet Count 84L, Mean Platelet Volume 9.7, Percent Immature Platelet Fraction 1.5, Sodium Level 136, Potassium Level 4.3, Chloride Level 104, Carbon Dioxide Level 24, Anion Gap 8, Blood Urea Nitrogen 21H, Creatinine 0.82, Estimat Glomerular Filtration Rate 77, BUN/Creatinine Ratio 26, Glucose Level 123H, Calcium Level 8.6 05/22/23 10:48: Glucometer 141H Microbiology 05/18/23 Blood Culture - Preliminary, Resulted No growth 05/18/23 Urine Culture - Final, Complete Escherichia coli Laboratory Tests 05/21/23 05:04 05/22/23 05:29 A/P: Assessment: Stroke-like symptoms - managed by the Hospitalist Amina Lung CA with brain mets - managed by the Hospitalist Amina Severe anemia and thrombocytopenia - managed by the Hospitalist Amina Mildly elevated troponin (flat) w/o any evidence of acute coronary syndrome - probably type II SC due supply/demand imbalance - echo on 05-20-23: LVEF 55-60% Plan: * Complex management * Antiplatelet and anticoag contraindicated because of marked anemia and thrombocytopenia * Monitor labs * I discussed her CV-related issues with her and answered questions JACQUELINE PEDROZA MD FACP [facility] May 22, 2023 15:26
[2023-05-22 16:28] VITALS: BP 145/51
[2023-05-22] MEDS: LORazepam 0.5 MG (ATIVAN) TABLET PO PRN (18:25)
[2023-05-22 20:00] VITALS: BP 135/100
[2023-05-22] MEDS: DOCUSATE SODIUM 100 MG (COLACE) CAP PO SCH (21:02)
[2023-05-22] MEDS: SENNA W/DOCUSATE (SENOKOT S) TABLET PO SCH (21:02)
[2023-05-23 00:16] VITALS: BP 154/107
[2023-05-23 04:32] LABS: HEMOGLOBIN 9.1 g/dL (11.5-16.0)
[2023-05-23 04:34] LABS: MEAN PLATELET VOLUME 8.8 fL (9.0-12.2)
[2023-05-23 04:45] LABS: POTASSIUM 4.5 MMOL/L (3.6-5.0)
[2023-05-23 04:46] LABS: CALCIUM 8.4 MG/DL (8.5-10.1)
[2023-05-23 04:51] LABS: CREATININE SERUM 0.86 MG/DL (0.60-1.30)
[2023-05-23 05:00] VITALS: BP 130/85
[2023-05-23] MEDS: inSUlin ASPART (NovoLOG) 1 UNIT/0.01 ML (CHARGE PER UNIT) SC SCH ×4 (06:18→21:27)
[2023-05-23] MEDS: morphine ER 15 MG (MS CONTIN) TAB PO SCH ×3 (06:21→21:22)
[2023-05-23] MEDS: CATHETER FLUSH 10 ML SYR IVP SCH ×3 (06:21→22:01)
[2023-05-23 07:49] VITALS: BP 148/103
[2023-05-23] MEDS: CEPHALEXIN 250 MG (KEFLEX) CAP PO SCH ×2 (08:04→21:22)
[2023-05-23] MEDS: DOCUSATE SODIUM 100 MG (COLACE) CAP PO SCH ×2 (08:05→21:29)
[2023-05-23] MEDS: SENNA W/DOCUSATE (SENOKOT S) TABLET PO SCH ×2 (08:05→21:29)
--- NOTE | 2023-05-23 08:43 | Progress Note - Cardiology ---
Cardiology SOAP Progress Note Objective: I&O/Vital Signs 05/23/23 05/23/23 05/23/23 05/23/23 00:00 00:16 01:00 04:00 Temp 36.0 36.0 Pulse 107 73 B/P (MAP) 154/107 (123) Pulse Ox O2 Delivery Nasal Cannula Nasal Cannula Nasal Cannula O2 Flow Rate 2.00 2.00 2.00 05/23/23 05/23/23 05/23/23 05:00 07:25 07:49 Temp 36.5 Pulse 67 72 74 Resp 13 16 B/P (MAP) 130/85 (100) 148/103 (118) Pulse Ox 100 100 O2 Delivery Nasal Cannula Nasal Cannula O2 Flow Rate 2.00 2.00 05/23/23 00:00 Intake Total 1265 ml Output Total 850 ml Balance 415 ml Constitutional: AAO x 3, well-developed, well-nourished Respiratory: No accessory muscle use; chest expansion is symmetric, other (fair to good bilateral air entry) Cardiovascular: regular rate-rhythm, S1 and S2, systolic murmur Gastrointestional: No tender; soft; No guarding, No rebound; audible bowel sounds Extremities: No clubbing, No cyanosis, No significant edema Neurologic/Psychiatric: oriented x 3, other (moves all limbs equally) Skin: No rash on exposed areas, No ulcerations on exposed areas Results/Procedures: Labs Laboratory Tests 05/22/23 10:48: Glucometer 141H 05/22/23 15:44: Glucometer 111H 05/22/23 18:05: Glucometer 117H 05/22/23 20:42: Glucometer 140H 05/23/23 04:20: White Blood Count 13.0H, Red Blood Count 3.25L, Hemoglobin 9.1L, Hematocrit 29L, Mean Corpuscular Volume 88, Mean Corpuscular Hemoglobin 28, Mean Corpuscular Hemoglobin Concent 32, Red Cell Distribution Width 17.0H, Platelet Count 86L, Mean Platelet Volume 8.8L, Percent Immature Platelet Fraction 1.6, Sodium Level 137, Potassium Level 4.5, Chloride Level 104, Carbon Dioxide Level 25, Anion Gap 8, Blood Urea Nitrogen 24H, Creatinine 0.86, Estimat Glomerular Filtration Rate 73, BUN/Creatinine Ratio 28, Glucose Level 138H, Calcium Level 8.4L 05/23/23 06:08: Glucometer 140H Microbiology 05/18/23 Blood Culture - Preliminary, Resulted No growth 05/18/23 Urine Culture - Final, Complete Escherichia coli Laboratory Tests 05/22/23 05:29 05/23/23 04:20 A/P: Assessment: Stroke-like symptoms - managed by the Hospitalist Amina Lung CA with brain mets - managed by the Hospitalist Amina Severe anemia and thrombocytopenia - managed by the Hospitalist Amina Mildly elevated troponin (flat) w/o any evidence of acute coronary syndrome - probably type II AR due supply/demand imbalance - echo on 05-20-23: LVEF 55-60% HTN Plan: * Complex management * Antiplatelet and anticoag contraindicated because of marked anemia and thrombocytopenia * BP trending up - restart home dose BB at reduced dose - adjust as indicated * Monitor labs * ? Palliative vs home with hospice - management per medical services ELIA BAINS May 23, 2023 08:43
[2023-05-23] MEDS: meTOprolol TARTRATE 25 MG (LOPRESSOR) TABLET PO SCH ×2 (09:24→21:22)
--- NOTE | 2023-05-23 09:42 | Diagnostic Imaging Report ---
PROCEDURE: US carotid duplex bilateral. TECHNIQUE: Multiple Real-time grayscale images were obtained over the carotid arteries in various projections bilaterally. Additional spectral analysis and color Doppler duplex images were also obtained. INDICATION: Atherosclerotic disease. FINDINGS: The bilateral peak common internal and external carotid arterial systolic velocities are unremarkable. There is normal color Doppler laminar blood flow. Vertebral flow is in the antegrade direction bilaterally. Mild to moderate calcified plaques of the bilateral carotid bulbs, greater right, do not result in hemodynamically significant luminal narrowing. IMPRESSION: Right greater than left calcified carotid plaques do not result in hemodynamically significant degrees of stenosis. Parameters based on the consensus panel Ochoa-Scale and Doppler ultrasound criteria published September 2003, Radiology, Volume 229. DOPPLER (peak systolic velocity M/S Right Left CCA 0.49 0.60 ICA Proximal 0.90 0.97 ICA Mid 0.63 0.72 ICA Distal 0.75 0.82 RATIO 1.86 1.63 ECA 0.76 0.69 VERT 0.50 0.48 Dictated by: Dictated on workstation # [id number]
[2023-05-23] MEDS ORDERED: DEXA4TAB PO (10:16)
[2023-05-23] MEDS ORDERED: AMLO-250 PO (10:16)
[2023-05-23] MEDS ORDERED: METO100T12 PO (10:16)
[2023-05-23] MEDS ORDERED: LEVE500T6 PO (10:16)
[2023-05-23] MEDS ORDERED: LISI40TA9 PO (10:16)
[2023-05-23 12:00] VITALS: BP 136/74
--- NOTE | 2023-05-23 12:02 | Physical Therapy Daily Note ---
PT Daily Note-Current Subjective Pt found lying in bed upon entry. Agreed to PT. Pt reports that she already ambulated for a little bit earlier and does not want to complete gait training. No pain reported. Pain Section J - Health Conditions 1. Rarely or not at all 2. Occasionally 3. Frequently 4. Almost constantly 8. Unable to answer Pain Effect on Sleep: 1 Pain Interference with Therapy: 1 Pain Interference w/Day-to-Day: 1 Mental Status Patient Orientation: Person, Place Attachments: Oxygen Transfers SCALE: Activities may be completed with or without assistive devices. 3-Snwhfdrspm-kzejfmq completes the activity by him/herself with no assistance from a helper. 5-Set-up or Clean-up Assistance-helper sets up or cleans up; patient completes activity. Randolph assists only prior to or following the activity. 4-Supervision or Touching Assistance-helper provides verbal cues and/or touching/steadying and/or contact guard assistance as patient completes activity. Assistance may be provided throughout the activity or intermittently. 3-Partial/Moderate Assistance-helper does LESS THAN HALF the effort. Randolph lifts, holds or supports trunk or limbs, but provides less than half the effort. 2-Substantial/Maximal Assistance-helper does MORE THAN HALF the effort. Randolph lifts or holds trunk or limbs and provides more than half the effort. 2-Fngrjeovj-fthizh does ALL the effort. Patient does none of the effort to complete the activity. Or, the assistance of 2 or more helpers is required for the patient to complete the activity. If activity was not attempted, code reason: 7-Patient Refused. 9-Not Applicable-not attempted and the patient did not perform the activity before the current illness, exacerbation or injury. 10-Not Attempted due to Environmental Limitations-(lack of equipment, weather restraints, etc.). 88-Not Attempted due to Medical Conditions or Safety Concerns. Weight Bearing Weight Bearing/Tolerated Weight Bearing/Tolerated Treatments Seated Therapeutic Exercises (B): Heel slides x 10 Quad sets x 10 Hamstring sets x 10 Glute sets x 10 Hip abd/add x 10 SLRs x 10 Ankle pumps x 10 Assessment Current Status: Fair Progress Pt displays good muscle strength and endurance /c therapeutic exercises. No obvious signs of fatigue demonstrated post-treatment. Continue to progress per POC to improve strength, endurance, and functional ability. PT Clerk Checker Goals Penitentiary Goals PT Penitentiary Goals Time Frame: Jun 02, 2023 Walk 10 feet (QC): 6 Walk 50ft with 2 Turns (QC): 6 Walk 150 ft (QC): 6 PT Plan Treatment/Plan Treatment Plan: Continue Plan of Care Treatment Plan: Functional Activity Andra, Functional Strength, Gait, Safety, Therapeutic Exercise, Transfers Treatment Duration: Jun 02, 2023 Frequency: 6 times per week Estimated Hrs Per Day: .25 hour per day Patient and/or Family Agrees t: Yes Time Time In: 1133 Time Out: 1145 DATE: May 23, 2023 Total Billed Treatment Time: 12 Total Billed Treatment 1 visit EX x 1 BASIA MOORE CHAIRMAN AND CHIEF EXECUTIVE OFFICER May 23, 2023 12:02
--- NOTE | 2023-05-23 12:26 | Speech Therapy Daily Note ---
Speech Daily Progress Note Subjective Date Seen by Provider: May 23, 2023 Time Seen by Provider: 11:20 The patient was seated upright in her bed, awake and alert, upon entrance to her room by the clinician. The patient greeted the clinician appropriately and was agreeable to participation in the skilled dysphagia treatment session. The patient's sister was seated at bedside and remained for the treatment session. Objective The patient denied the presence of s/s of suspected aspiration with her current diet consistency of SB6 with thin liquids. Additionally, the patient stated her appetite appears to be improving. The patient was agreeable to sips of coffee via straw. The patient consumed multiple straw drinks of coffee (thin liquid) and did not display s/s of suspected aspiration. The patient's vocal quality remained clear following each sip. The patient, clinician, and family member visited about diet consistencies and which consistency would be the most appropriate for the patient. During the initial evaluation, the patient deferred a regular diet consistency due to mastication difficulty and increased effort, however, a regular diet was not avoided by the clinician due to aspiration risk. The patient stated she preferred a soft and bite size diet versus a minced and moist, therefore, the soft and bite size diet consistency was recommended and decided upon. The patient currently reports many items from a soft and bite size diet consistency are being presented in more of a pureed consistency which is not appetizing to the patient. The patient has agreed to remain on the soft and bite size diet consistency at this time while avoiding the pureed items. To improve P.O. intake, modifications may be provided for the patient to present more appetizing, desirable solid items as the patient is cognizant and displays appropriate safe consumption strategies (small bites, ceases P.O. intake with fatigue) with a regular diet consistency (the patient personally chose the soft and bite size consistency during the initial evaluation to decrease effort and improve fatigue). Please contact the clinician with any questions regarding appropriate modifications. To note, the patient has solid consistencies at bedside and denied challenges with the consistency at this time. - Continue with the current plan of care. Assessment Assessment Current Status: Good Progress Treatment Plan Continue Plan of Care Speech Short Term Goals Short Term Goals Short Term Goals 1. The patient, family, and staff members will display safe swallowing precautions with 90% accuracy. Time Frame-STG: Five Days. Speech Tank Car Mechanic Goals Detention Goals 1. The patient will tolerate the least restrictive diet consistency without s/s of suspected aspiration. Time Frame: One Week. Speech-Plan Treatment Plan Speech Therapy Treatment Plan: Continue Plan of Care Treatment Duration: May 25, 2023 Frequency: 3 times per week Estimated Hrs Per Day: .25 hour per day Rehab Potential: Fair Pt/Family Agrees to Plan: Yes Safety Risks/Education Teaching Recipient: Patient, Family Teaching Methods: Discussion Response to Teaching: Verbalize Understanding Education Topics Provided: Recommendations, Safe Swallowing Precautions, Diet Consistency Levels Time Speech Therapy Time In: 11:20 Speech Therapy Time Out: 11:30 DATE: May 23, 2023 Total Billed Time: 10 Billed Treatment Time 1, DAVIN LOPEZ May 23, 2023 12:26
--- NOTE | 2023-05-23 13:10 | Occupational Ther Daily Note ---
OT Current Status-Daily Note Subjective Patient resting in bed, left facial edema, agreeable to OT Pain Numeric Pain Scale: 0-No Pain Mental Status/Objective Patient Orientation: Person, Place, Situation (reports having a visit w/ [facility] today) ADL-Treatment SBA for toileting and standing grooming at bathroom sink.On return to bed patient request warmed blanket and additional blanket as overlay Therapy Code Descriptions/Definitions Functional Edwards Measure: 0=Not Assessed/NA 4=Minimal Assistance 1=Total Assistance 5=Supervision or Setup 2=Maximal Assistance 6=Modified Edwards 3=Moderate Assistance 7=Complete IndependenceSCALE: Activities may be completed with or without assistive devices. 9-[id number] completes the activity by him/herself with no assistance from a helper. 5-Set-up or Clean-up Assistance-helper sets up or cleans up; patient completes activity. [place] assists only prior to or following the activity. 4-Supervision or Touching Assistance-helper provides verbal cues and/or touch ing/steadying and/or contact guard assistance as patient completes activity. Assistance may be provided throughout the activity or intermittently. 3-Partial/Moderate Assistance-helper does LESS THAN HALF the effort. [place] lifts, holds or supports trunk or limbs, but provides less than half the effort. 2-Substantial/Maximal Assistance-helper does MORE THAN HALF the effort. [place] lifts or holds trunk or limbs and provides more than half the effort. 4-Cseeidmas-jthtjb does ALL the effort. Patient does none of the effort to complete the activity. Or, the assistance of 2 or more helpers is required for the patient to complete the activity. If activity was not attempted, code reason: 7-Patient Refused. 9-Not Applicable-not attempted and the patient did not perform the activity before the current illness, exacerbation or injury. 10-Not Attempted due to Environmental Limitations-(lack of equipment, weather restraints, etc.). 88-Not Attempted due to Medical Conditions or Safety Concerns. Eating (QC): 6 Oral Hygiene (QC): 4 Toileting Hygiene (QC): 4 (CGA) Toilet Transfer (QC): 4 (CGA) Education OT Patient Education: Modified ADL techniques, Progress toward Goal/Update tx plan, Purpose of tx/functional activities, Reviewed precautions, Rehab process, Safety issues, Transfer techniques Teaching Recipient: Patient Teaching Methods: Demonstration Response to Teaching: Verbalize Understanding OT Senior Controls Technician Goals [facility] Goals Time Frame: May 26, 2023 Eating (QC): 6 Oral Hygiene (QC): 5 Toileting Hygiene (QC): 5 Shower/Bathe Self (QC): 4 Upper Body Dressing (QC): 5 Lower Body Dressing (QC): 4 On/Off Footwear (QC): 3 Additional Goals: 1-Demonstrate ADL Tasks, 2-Verbalize Understanding, 3- ImproveStrength/Andra 1=Demonstrate adherence to instructed precautions during ADL tasks. 2=Patient will verbalize/demonstrate understanding of assistive devices/modifications for ADL. 3=Patient will improve strength/tolerance for activity to enable patient to perform ADL's. OT Education/Plan Problem List/Assessment Pt would benefit from skilled OT to increase her independence in basic self care and decrease caregiver burden. Discharge Recommendations Plan/Recommendations: Continue POC Treatment Plan/Plan of Care Patient would benefit from OT for education, treatment and training to promote independence in ADL's, mobility, safety and/or upper extremity function for ADL's. Plan of Care: ADL Retraining, Functional Mobility, UE Funct Exercise/Act Treatment Duration: May 26, 2023 Frequency: 5 times per week (4-5 times a week) Estimated Hrs Per Day: .25 hour per day Agreement: Yes Rehab Potential: Fair All needs met Time Start Time: 12:40 Stop Time: 12:57 DATE: May 23, 2023 Total Time Billed (hr/min): 17 Billed Treatment Time ADLs 17 min TREVOR SILVERMAN OT May 23, 2023 13:10
[2023-05-23 15:50] VITALS: BP 152/95
[2023-05-23] MEDS ORDERED: METO-333 PO (16:32)
[2023-05-23] MEDS ORDERED: RIVA15TA2 PO (16:32)
--- NOTE | 2023-05-23 16:43 | Progress Note - Hospitalist ---
Subjective HPI/CC On Admission Date Seen by Provider: May 23, 2023 Time Seen by Provider: 10:00 Patient is 72-year-old female well-known to me from multiple previous admissions with known history of metastatic lung cancer presented to the emergency department due to new onset slurred speech and facial droop. EMS was summoned to her home due to this and she was found to have a blood sugar of 323. She reports that she does take steroids due to her known brain tumor. She reports that her symptoms started yesterday in the afternoon and per ER report it was at 1540. She was taken emergently to CT which showed no intracranial hemorrhage or evidence of acute infarct but did show interval development of subtle infarct or mass in the right frontal lobe. He was also found to have an elevated troponin of 0.1 and was admitted for further management. This morning she reports feeling about the same and has been up working with physical therapy but has persistent symptoms. Indicates that she has recently been accepted to a alf for further care she believes that is [facility] though is uncertain of that. Subjective/Events-last exam She is doing well. She has no complaints. Objective Exam Vital Signs Vital Signs Date Time Temp Pulse Resp B/P (MAP) Pulse Ox O2 Delivery O2 Flow Rate FiO2 05/23/23 15:50 36.1 79 16 152/95 (114) 96 Nasal Cannula 05/23/23 12:00 2.00 05/21/23 20:17 28 Capillary Refill : Less Than 3 Seconds General Appearance: No Apparent Distress, Chronically ill Respiratory: Lungs Clear, No Respiratory Distress Cardiovascular: Regular Rate, Rhythm, No Murmur Extremity: Normal Inspection, No Pedal Edema Neurologic/Psychiatric: Alert, Depressed Affect Results/Procedures Lab Laboratory Tests 05/23/23 04:20 Patient resulted labs reviewed. 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 Palliative care following Elevated troponin Cardiology following Troponin stable Conservative management recommended UTI Keflex End Stage COPD Chronic Hypoxic Respiratory Failure On 2 L MAT protocol Continue home meds HTN HLD GERD Continue home meds as able Steroid induced hyperglycemia SSI DVT ppx: Lovenox Diagnosis/Problems Diagnosis/Problems (1) Embolic stroke Status: Acute Qualifiers: Laterality of affected vessel: bilateral (2) Slurred speech Status: Acute (3) Metastatic primary lung cancer Status: Acute Qualifiers: Laterality: right Qualified Codes: C34.91 - Malignant neoplasm of unspecified part of right bronchus or lung (4) Brain mass Status: Acute (5) UTI (urinary tract infection) Status: Acute Qualifiers: Urinary tract infection type: acute cystitis Hematuria presence: without hematuria Qualified Codes: N30.00 - Acute cystitis without hematuria (6) Elevated troponin (7) Chronic respiratory failure with hypoxia Status: Chronic (8) COPD (chronic obstructive pulmonary disease) Status: Acute FARA CAMPOS MD May 23, 2023 16:43
[2023-05-23] MEDS ORDERED: RIVAROXABAN 15 MG TABLET (XARELTO) PO SCH (17:00)
[2023-05-23] MEDS: ONDANSETRON 4 MG/2 ML (SDV) Z0FRAN IV PRN (17:24)
--- NOTE | 2023-05-23 19:06 | Progress Note - Cardiology ---
Cardiology SOAP Progress Note Subjective: Gen weakness and malaise No n/v/d No focal weakness No palp or syncope No cp No shortness of breath at rest Objective: I&O/Vital Signs 05/23/23 05/23/23 05/23/23 05/23/23 07:25 07:49 08:00 09:25 Temp 36.5 Pulse 72 74 85 Resp 16 B/P (MAP) 148/103 (118) Pulse Ox 100 99 O2 Delivery Nasal Cannula Nasal Cannula O2 Flow Rate 2.00 2.00 05/23/23 05/23/23 05/23/23 12:00 12:00 15:50 Temp 35.9 36.1 Pulse 71 78 79 Resp 15 16 B/P (MAP) 136/74 (94) 152/95 (114) Pulse Ox 100 96 O2 Delivery Nasal Cannula Nasal Cannula O2 Flow Rate 2.00 05/23/23 00:00 Intake Total 1265 ml Output Total 850 ml Balance 415 ml Constitutional: AAO x 3, well-developed, well-nourished Respiratory: No accessory muscle use; chest expansion is symmetric, other (fair to good bilateral air entry) Cardiovascular: regular rate-rhythm, S1 and S2, systolic murmur Gastrointestional: No tender; soft; No guarding, No rebound; audible bowel sounds Extremities: No clubbing, No cyanosis, No significant edema Neurologic/Psychiatric: oriented x 3, other (moves all limbs equally) Skin: No rash on exposed areas, No ulcerations on exposed areas Results/Procedures: Labs Laboratory Tests 05/22/23 20:42: Glucometer 140H 05/23/23 04:20: White Blood Count 13.0H, Red Blood Count 3.25L, Hemoglobin 9.1L, Hematocrit 29L, Mean Corpuscular Volume 88, Mean Corpuscular Hemoglobin 28, Mean Corpuscular Hemoglobin Concent 32, Red Cell Distribution Width 17.0H, Platelet Count 86L, Mean Platelet Volume 8.8L, Percent Immature Platelet Fraction 1.6, Sodium Level 137, Potassium Level 4.5, Chloride Level 104, Carbon Dioxide Level 25, Anion Gap 8, Blood Urea Nitrogen 24H, Creatinine 0.86, Estimat Glomerular Filtration Rate 73, BUN/Creatinine Ratio 28, Glucose Level 138H, Calcium Level 8.4L 05/23/23 06:08: Glucometer 140H 05/23/23 10:41: Glucometer 198H 05/23/23 15:46: Glucometer 128H Microbiology 05/18/23 Blood Culture - Preliminary, Resulted No growth 05/18/23 Urine Culture - Final, Complete Escherichia coli Laboratory Tests 05/23/23 04:20 A/P: Assessment: Stroke-like symptoms - managed by the Hospitalist Amina Lung CA with brain mets - managed by the Hospitalist Amina Severe anemia and thrombocytopenia - managed by the Hospitalist Amina Mildly elevated troponin (flat) w/o any evidence of acute coronary syndrome - probably type II MT due supply/demand imbalance - echo on 05-20-23: LVEF 55-60% HTN Plan: * Complex management * Antiplatelet and anticoag relatively contraindicated because of anemia and thrombocytopenia * BP trending up - restart home dose BB at reduced dose - adjust as indicated * Monitor labs * ? Palliative vs home with hospice - management per medical services JACQUELINE PEDROZA MD FACP [facility] May 23, 2023 19:06
[2023-05-23 22:01] VITALS: BP 151/93
[2023-05-24 00:01] VITALS: BP 151/96
[2023-05-24] MEDS: LORazepam 0.5 MG (ATIVAN) TABLET PO PRN (01:23)
[2023-05-24 03:02] VITALS: BP 118/87
[2023-05-24 04:05] VITALS: BP 146/83
[2023-05-24] MEDS: morphine ER 15 MG (MS CONTIN) TAB PO SCH (05:45)
[2023-05-24] MEDS: CATHETER FLUSH 10 ML SYR IVP SCH (05:45)
[2023-05-24] MEDS: inSUlin ASPART (NovoLOG) 1 UNIT/0.01 ML (CHARGE PER UNIT) SC SCH ×2 (05:57→11:00)
[2023-05-24 07:48] VITALS: BP 148/79
[2023-05-24] MEDS ORDERED: amLODIPine 5 MG (NORVASC) TAB PO SCH (09:00)
[2023-05-24] MEDS ORDERED: lisINopril 20 MG (PRINIVIL) TABLET PO SCH (09:00)
[2023-05-24] MEDS: DOCUSATE SODIUM 100 MG (COLACE) CAP PO SCH ×2 (09:19→09:40)
[2023-05-24] MEDS: ONDANSETRON 4 MG/2 ML (SDV) Z0FRAN IV PRN ×2 (09:19→13:49)
[2023-05-24] MEDS: SENNA W/DOCUSATE (SENOKOT S) TABLET PO SCH ×2 (09:19→09:40)
[2023-05-24] MEDS: meTOprolol TARTRATE 25 MG (LOPRESSOR) TABLET PO SCH (09:20)
[2023-05-24] MEDS: CEPHALEXIN 250 MG (KEFLEX) CAP PO SCH (09:20)
[2023-05-24] MEDS ORDERED: OXYC5TAB PO (10:00)
--- NOTE | 2023-05-24 11:14 | Discharge Summary ---
Discharge Summary Hospital Course Problems/Dx: (1) Embolic stroke Status: Acute Qualifiers: (2) Slurred speech Status: Acute (3) Metastatic primary lung cancer Status: Acute Qualifiers: Qualified Codes: C34.91 - Malignant neoplasm of unspecified part of right bronchus or lung (4) Brain mass Status: Acute (5) UTI (urinary tract infection) Status: Acute Qualifiers: Qualified Codes: N30.00 - Acute cystitis without hematuria (6) Elevated troponin (7) Chronic respiratory failure with hypoxia Status: Chronic (8) COPD (chronic obstructive pulmonary disease) Status: Acute Hospital Course Date of Admission: May 18, 2023 at 18:44 Admission Diagnosis : Stroke like symptoms Family Physician/Provider: Oscar Garnett MD Date of Discharge: 05/24/23 Discharge Diagnosis: Embolic strokes, metastatic adenocarcinoma of the lung Hospital Course: Lyndsey Sosa is a 72 year old female with metastatic adenocarcinoma of the lung to multiple sites who presented with stroke like symptoms. She has brain metastasis and has undergone radiation. She follows with Dr. Marroquin. She had an MRI which revealed multifocal strokes indicative of embolic process. She had no evidence of irregular heart rhythm. She had no significant stenoses on carotid ultrasound. She had an echo which was unremarkable. She had a mildly elevated troponin. Cardiology recommended conservative management due to her underlying medical conditions. There was concern for non-bacterial thrombotic endocarditis. This is commonly associated with adenocarcinoma of the lung and frequently is not visualized on TTE. A HANY was discussed but was considered too invasive. She was started on Xarelto for stroke prevention after a risks/benefits discussion with the patient, her sister, and Dr. Marroquin. She was also found to have a UTI and received a course of Keflex. She had already been working to get into [facility] assisted living facility. She was discharged there in fair condition. Due to her metastatic cancer and newly diagnosed strokes, hospice was recommended. The patient and her sister, Madhuri, will consider and make a decision after following up with Dr. Marroquin. Labs and Pending Lab Test: Laboratory Tests 05/23/23 15:46: Glucometer 128H 05/23/23 20:57: Glucometer 115H 05/24/23 05:55: Glucometer 120H 05/24/23 10:57: Glucometer 88 Microbiology 05/18/23 Blood Culture - Preliminary, Resulted No growth 05/18/23 Urine Culture - Final, Complete Escherichia coli Home Meds Active Oxycodone HCl 5 Mg Tablet 10 Mg PO Q4H PRN 7 Days Metoprolol Tartrate 25 Mg Tablet 25 Mg PO BID 30 Days Xarelto Tablet (Rivaroxaban) 15 Mg Tablet 15 Mg PO DAILY@1700 90 Days Reported Metoprolol Tartrate 100 Mg Tablet 100 Mg PO BID Dexamethasone 4 Mg Tablet 2 Mg PO BID TAKES OF A 4MG TAB Amlodipine Besylate 5 Mg Tablet 5 Mg PO DAILY Levetiracetam 500 Mg Tablet 500 Mg PO BID Lisinopril 40 Mg Tablet 20 Mg PO DAILY TAKES OF A 40MG TAB Hydroxyzine Pamoate 25 Mg Capsule 25-50 Mg PO BID PRN TAKES 1 TO 2 (25MG) CAPS Ventolin Hfa (Albuterol Sulfate) 1 Puff Puff 2 Puff INH Q4H PRN Multivitamin Gummies (Multivit-Minerals/Folic Acid) 200 Mcg Tab.chew 1 Ea PO DAILY Vitamin B-12 (Cyanocobalamin (Vitamin B-12)) 500 Mcg Tablet 500 Mcg PO HS Morphine Sulfate ER (Morphine Sulfate) 15 Mg Tablet.er 15 Mg PO Q8H Promethazine Tablet (Promethazine HCl) 25 Mg Tablet 25 Mg PO Q6H PRN Docusate Sodium 100 Mg Capsule 100 Mg PO BID PRN Iprat-Albut 0.5-3(2.5) mg/3 ml (Ipratropium/Albuterol Sulfate) 0.5 Mg-3 Mg (2.5 Mg Base)/3 Ml Ampul.neb 3 Ml NEB Q4H PRN Pantoprazole Sodium 40 Mg Tablet.dr 40 Mg PO DAILY Folic Acid 1 Mg Tablet 1 Mg PO 1200 Trelegy Ellipta 100-62.5-25 (Fluticasone/Umeclidin/Vilanter) 100-62.5 Blst.w.dev 1 Each IH 1200 Rosuvastatin Calcium 20 Mg Tablet 20 Mg PO HS Assessment/Pt Instructions See instructions Discharge Planning: >30 minutes discharge planning Discharge Instructions Discharge Diet: No Restrictions Activity as Tolerated: Yes Consultations Cardiology Discharge Physical Examination Vital Signs Vital Signs Date Time Temp Pulse Resp B/P (MAP) Pulse Ox O2 Delivery O2 Flow Rate FiO2 05/24/23 07:48 36.2 68 16 148/79 (102) 100 Nasal Cannula 2.00 05/21/23 20:17 28 General Appearance: No Apparent Distress, Chronically ill Respiratory: No Respiratory Distress, Decreased Breath Sounds Cardiovascular: Regular Rate, Rhythm, No Murmur Gastrointestinal: Normal Bowel Sounds, Soft Extremity: Non Tender, No Pedal Edema Skin: Normal Color, Warm/Dry Neurologic/Psychiatric: Alert, Normal Mood/Affect Allergies: Coded Allergies: fentanyl (Verified Allergy, Intermediate, 09/03/22) hallucinations codeine (Verified Allergy, Unknown, ITCH/HIVES; pt takes morphine at home, 05/24/23) Copy Copies To 1: MONISHA MARROQUIN Discharge Summary Date of Admission May 18, 2023 at 18:44 Date of Discharge Discharge Date: May 24, 2023 Discharge Time: 11:00 Admission Diagnosis Stroke like symptoms Consults/Procedures Consulations Cardiology Discharge Diagnosis Embolic strokes 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 Elevated troponin UTI End Stage COPD Chronic Hypoxic Respiratory Failure HTN HLD GERD Steroid induced hyperglycemia (1) Embolic stroke Status: Acute Qualifiers: (2) Slurred speech Status: Acute (3) Metastatic primary lung cancer Status: Acute Qualifiers: Qualified Codes: C34.91 - Malignant neoplasm of unspecified part of right bronchus or lung (4) Brain mass Status: Acute (5) UTI (urinary tract infection) Status: Acute Qualifiers: Qualified Codes: N30.00 - Acute cystitis without hematuria (6) Elevated troponin (7) Chronic respiratory failure with hypoxia Status: Chronic (8) COPD (chronic obstructive pulmonary disease) Status: Acute FARA CAMPOS MD May 24, 2023 11:09
[2023-05-24 11:52] VITALS: BP 148/108
--- NOTE | 2023-05-24 12:23 | D/C HH Face to Face Order ---
D/C Face to Face Orders Instructions for Patient [facility], Patient Instructions/FollowUp: see instructions Physician to follow Patient: Lopez Discharge Diet for Home: No Restrictions Patient Data-Allergies,Ht & Wt Patient Allergies: Coded Allergies: fentanyl (Verified Allergy, Intermediate, 09/03/22) hallucinations codeine (Verified Allergy, Unknown, ITCH/HIVES; pt takes morphine at home, 05/24/23) Home Health Need/Face to Face Date of Face to Face: May 24, 2023 Clinical Findings: Generalized weakness and fatigue, Instability, Muscle weakness, Shortness of breath, Unsteady gait I have seen Pt [id number]: Yes Discharged To: Home Diagnosis/Conditions: Metastatic adenocarcinoma of the lung Stroke COPD Chronic respiratory failure with hypoxia Problems/Diagnosis/Condition: (1) Metastatic lung cancer (metastasis from lung to other site) (2) Embolic stroke (3) Chronic respiratory failure with hypoxia (4) COPD (chronic obstructive pulmonary disease) Patient is Homebound due to: Rashi fall risk due to instabilty, Muscle weakness, Shortness of breath/distress Homebound Status Due to the above stated illness, injury or surgical procedure (medical condition or diagnosis) and associated clinical findings, the patient is homebound because of his/her inability to leave home except with aid of a supportive device and/or person AND leaving the home requires a considerable and taxing effort or is medically contraindicated. Pt req the following assistanc: Aid of another person, [facility] Home Health Nursing Orders Home Health Services Order: Nursing Services, Mixing Plant Operator-Evaluate & Micky at, Physical Therapy-Evaluate & Treat, Speech Language-Evaluate & Treat Home Health Infusion Therapy Line Start Date: May 18, 2023 Therapy Orders Therapy Orders: OT (must have SN or PT order), Physical Therapy, Speech Language Pathology Therapy Specific Orders: Eval assistive deivces, Teach enviro modifications/safety, Gait training, Increase strength/endurance Certify Stmt I certify that this patient is under my care and that I, a nurse practitioner or a physician; a real estate administrative assistant working with me, had a face to face encounter that - meets the physician face to face encounter requirements with this patient as dated. FARA CAMPOS MD May 24, 2023 12:23
[2023-05-24 14:00] VITALS: BP 132/77
== END 2023-05-24 14:20 | disposition home health service (06) | DRG 64 ==
LOC: EDUNIT# 16:06 → ER 16:07 → CSD 18:44 → OBSVTOIN 18:44
PROVIDERS: ADMIT Family Medicine; ATTEND Internal Medicine
DX: I63.441 Cerebral infarction due to embolism of right cerebellar artery (principal); I21.A1 Myocardial infarction type 2; C79.31 Secondary malignant neoplasm of brain; N39.0 Urinary tract infection, site not specified; C34.91 Malignant neoplasm of unspecified part of right bronchus or lung; J96.11 Chronic respiratory failure with hypoxia; R47.81 Slurred speech; R29.810 Facial weakness; Z92.3 Personal history of irradiation; J44.9 Chronic obstructive pulmonary disease, unspecified; E78.00 Pure hypercholesterolemia, unspecified; G89.29 Other chronic pain; M54.9 Dorsalgia, unspecified; F41.9 Anxiety disorder, unspecified; Z87.891 Personal history of nicotine dependence; K21.9 Gastro-esophageal reflux disease without esophagitis; R73.9 Hyperglycemia, unspecified; T38.0X5A Adverse effect of glucocorticoids and synthetic analogues, initial encounter; D63.0 Anemia in neoplastic disease; D69.6 Thrombocytopenia, unspecified; Z66 Do not resuscitate; R29.700 NIHSS score 0
CPT/HCPCS: 36415; 70450; 70553; 71045; 80048; 80053; 80061; 81000; 82947; 83605; 84484; 85007; 85027; 85379; 85610; 85730; 87040; 87077; 87088; 87186; 93005; 93041; 93306; 93880; 94640; 94760